=== PATIENT | male | born 1990 | race Caucasian/White ===

== ENCOUNTER 2020-02-02 22:34 | Emergency (ER) | payer MEDICAID, SELFPAY ==
[2020-02-02 22:35] VITALS: BP 117/76; PULSE 115; RESP 20; TEMP 36.3; O2SAT 97; BMI 20.7
--- NOTE | 2020-02-02 22:42 | EKG12_ITS ---
Test Reason : CP Blood Pressure : / mmHG Vent. Rate : 113 BPM Atrial Rate : 113 BPM P-R Int : 148 ms QRS Dur : 090 ms QT Int : 306 ms P-R-T Axes : 076 081 044 degrees QTc Int : 419 ms Sinus tachycardia Nonspecific T wave abnormality Abnormal ECG Confirmed by JOY MARCUS, KATHY ([id number]), sound editor GIRISH LLOYD ([id number]) on 02/08/2020 12:29:55 PM Referred By: LETY Confirmed By:KATHY HAMILTON MD
--- NOTE | 2020-02-02 22:43 | ED.VIS.GEN ---
History of Present Illness Chief Complaint: Anxiety Informant: Patient Onset: Today Current Severity: Mild Maximum Severity: Severe Narrative: Patient presents after a panic attack at work. He states he has a problem with anxiety and has been under increased stress recently. Tonight at work he states his chest got very tight and he was hyperventilating for a while. He is not sure if his anxiety triggered an asthma attack that was all related to anxiety, but states this lungs were tighter than normal. He was not having wheezing. At this time he feels significantly improved. Patient did take an old Xanax he had left over tonight to help darryl his symptoms. He is not currently in any kind of counseling for his anxiety. - Past Medical History (1) Anxiety Status: Chronic (2) Asthma Status: Chronic Past Medical History - Allergies and Home Meds Allergies/Adverse Reactions: Allergies No Known Allergies Allergy (Verified 11/27/16 15:27) Primary Care Physician: Care Physician,No Primary [Primary Care Provider] - Prior records reviewed: Yes Smoking Status: Current some day smoker Review of Systems General: Denies: Chills, Fever Eyes: Denies: Visual changes - bilaterally ENT: Denies: Bilateral ear pain Cardiovascular: Reports: Chest pain - Chest tightness Respiratory: Reports: Dyspnea Gastrointestinal: Denies: Abdominal pain, Nausea, Vomiting, Diarrhea Musculoskeletal: Denies: Swelling, Extremity Pain Skin: Denies: Rash Neurological: Denies: Headache Hematologic: Denies: Easy bruising, Easy bleeding Allergy: Denies: Uticaria Physical Exam Vital Signs/Narrative: Vital Signs Temp Pulse Resp BP Pulse Ox 02/02/20 22:35 97.3 F L 115 H 20 H 117/76 97 Inital Vital Signs reviewed: Yes General: Well nourished, Well developed Head: Normocephalic ENT: Moist mucous membranes Neck: Supple Cardiovascular: Tachycardia Respiratory: No distress, CTA bilaterally Abdomen: Soft, Nontender Back: Nontender Extremities: Nontender Skin: Normal color, No rash Neurological: Alert, Oriented x3, Normal Strength, Normal Sensation Psychological: Normal affect Diagnostic/Tx/Re-eval Chest X-Ray - ED: 2 View, Read by ED Physician, Normal, Heart, Lungs, Mediastinum - EKG Initial EKG Interpretation: Sinus Tachycardia - Sinus tach at 113. No acute ischemia. Normal intervals. - Medical Decision Making Patient reports his panic attack symptoms have abated. He is interested in following up for counseling and will be referred to the counseling center. ED Disposition - Plan for ED Patient: Disposition: Home or Assisted Living Diagnosis: Panic attack Instructions: ED Panic Attack Referrals: Counseling,Center [GROUP OF PHYSICIANS] - As soon as possible
--- NOTE | 2020-02-02 22:55 | RAD_ITS ---
STUDY: X-RAY CHEST REASON FOR EXAM: Male, 29 years old. Anxiety, shortness of breath. TECHNIQUE: PA and lateral chest. COMPARISON: October 08, 2016. FINDINGS: No focal infiltrates. There is now blunting of the costophrenic angles compatible with minimal pleural effusions versus pleural scar. Lungs are hyperinflated. No pneumothorax. Normal size heart. Normal mediastinum and shaan. Normal visualized pulmonary arteries. Normal visualized aortic arch and descending thoracic aorta. Normal visualized thoracic spine. Nondisplaced left lateral 10th posterior rib fracture which is probably subacute or older. There is no demonstrated abnormality of the visualized soft tissue structures of the upper abdomen. RAD/Chest PA and Lateral IMPRESSION: Hyperinflation. Minimal bilateral pleural effusions versus pleural scar. Left 10th posterior rib fracture. Electronically Signed: Pastor Dillard MD at 23:19 EDT , Service support ,
== END 2020-02-02 23:13 | disposition home or self-care (01) ==
LOC: ED 23:09
PROVIDERS: Emergency Provider Emergency Medicine
DX: F41.0 Panic disorder [episodic paroxysmal anxiety] (principal); F17.200 Nicotine dependence, unspecified, uncomplicated
CPT/HCPCS: 71046; 93005; 99282

== ENCOUNTER 2020-07-21 04:52 | Emergency (ER) | payer MEDICAID, SELFPAY ==
[2020-07-21 04:53] VITALS: BP 122/78; PULSE 114; RESP 18; TEMP 36.6; O2SAT 96; BMI 22.1
--- NOTE | 2020-07-21 05:11 | ED.DCSUM_ITS ---
History of Present Illness Chief Complaint: Male Pain/Injury Informant: Patient Onset: Days - 1 week Context: Gradual Onset Current Severity: Mild Maximum Severity: Moderate Narrative: Patient presents with pain and tenderness to the proximal aspect of his penis. He has had 2 prior abscesses in this area. Patient states about 1 week ago he started noticing increased pain and some slight drainage again. No fever or chills. No problems with urinating. - Past Medical History (1) Anxiety Status: Chronic (2) Asthma Status: Chronic Past Medical History - Allergies and Home Meds Allergies/Adverse Reactions: Allergies No Known Allergies Allergy (Verified 07/21/20 05:00) Primary Care Physician: Ceasar Cunningham MD [STAFF PHYSICIAN] - As Needed Prior records reviewed: Yes Lives: With Family Smoking Status: Current every day smoker Review of Systems General: Denies: Chills, Fever Eyes: Denies: Visual changes - bilaterally ENT: Denies: Bilateral ear pain Cardiovascular: Denies: Chest pain Respiratory: Denies: Dyspnea Gastrointestinal: Denies: Abdominal pain, Nausea, Vomiting, Diarrhea Genitourinary: Reports: - - Pain/lesion on proximal penis Musculoskeletal: Denies: Extremity Pain Skin: Reports: Abscess Neurological: Denies: Headache Hematologic: Denies: Easy bruising, Easy bleeding Allergy: Denies: Uticaria Physical Exam Vital Signs/Narrative: Vital Signs Temp Pulse Resp BP Pulse Ox 07/21/20 04:53 97.9 F 114 H 18 122/78 H 96 Inital Vital Signs reviewed: Yes General: Well nourished, Well developed Head: Normocephalic Neck: Supple Cardiovascular: Regular rate, Regular rhythm Respiratory: No distress, CTA bilaterally Abdomen: Soft, Nontender : - - Area of induration and tenderness over the ventral proximal penile shaft. Mild erythema. No spontaneous drainage. No fluctuance. Skin: Normal color Neurological: Alert, Oriented x3 Psychological: Normal affect Diagnostic/Tx/Re-eval - Medical Decision Making At this time I do not palpate any evidence of deep abscess that requires drain age. Patient will be given Bactrim and Keflex along with [place] for pain control. He is referred to Dr. Cunningham as he has seen this group in the past for follow-up. ED Disposition - Plan for ED Patient: Disposition: Home or Assisted Living Diagnosis: Cutaneous abscess Instructions: ED Abscess Antibiotic Treatment Only Prescriptions: Smz/Tmp Ds [Bactrim Ds] 1 tablet PO BID #20 tab Transmission Status: Received by ARTHUR PENALOZA RD Cephalexin [Keflex] 500 mg PO Q6 #40 capsule Transmission Status: Received by ARTHUR PENALOZA RD Hydrocodone Bitart/Apap 5-325 [[place] 5MG-325MG] 1 tablet PO Q6H PRN PRN 3 Days #10 tab PRN Reason: Pain Transmission Status: Received by ARTHUR PENALOZA RD Referrals: Ceasar Cunningham MD [STAFF PHYSICIAN] - As Needed
[2020-07-21] MEDS: HYDROcodone Bitartrate/Apap 5/325 Tablet PO (05:15)
[2020-07-21] MEDS: Cephalexin 250 MG Capsule 500 MG PO (05:15)
[2020-07-21] MEDS: Smz/Tmp Ds Tablet 1 TABLET PO (05:15)
[2020-07-21 05:20] VITALS: BP 124/78; PULSE 114; RESP 18; O2SAT 96
== END 2020-07-21 05:20 | disposition home or self-care (01) ==
PROVIDERS: Emergency Provider Emergency Medicine
DX: N48.21 Abscess of corpus cavernosum and penis (principal); F17.200 Nicotine dependence, unspecified, uncomplicated
CPT/HCPCS: 99283

== ENCOUNTER 2020-07-21 08:53 | Emergency (ER) | payer MEDICAID, SELFPAY ==
[2020-07-21 04:53] VITALS: BMI 22.1
[2020-07-21 08:54] VITALS: BP 127/80; PULSE 95; RESP 16; TEMP 36.4; O2SAT 99; BMI 21.5
--- NOTE | 2020-07-21 09:03 | ED.VISSUMM ---
- ER Visit Summary Date of Service: 07/21/20 Chief Complaint: Pharmacy will not fill my medication History of Present Illness: The patient is a [address] Cunningham for prior penile abscesses. He reports that he has penile pain that began approximately 1 week ago. States that he was seen in the emergency department earlier today and that they prescribed Bactrim, Keflex, and [place]. The pharmacy would not fill the [place]. Physical Examination: Vitals: 97.6, 127/80, 95, 16, 99% on room air which is not hypoxic. Patient is alert with a normal gait. He refused any further physical exam. Emergency Department Course and Treatment: I discussed with the patient the pharmacy would not fill his [place] because he is on Suboxone. I suggested that he use Tylenol and/or ibuprofen for pain. He became upset and walked out. Treatment Plan: Patient has prescriptions for Bactrim and Keflex. He is instructed to follow-up with Dr. Cunningham. Disposition: To home in stable condition. Impression: 1. Penile pain. 2. Opiate seeking behavior. This note was generated with [employer] dictation software. It may contain incorrect words, spelling, and punctuation that were not noted in review of the chart prior to signing ED Disposition - Plan for ED Patient: Referrals: Care Physician,No Primary [Primary Care Provider] -
--- NOTE | 2020-07-21 09:10 | ED.RN ---
PT LEFT ED AFTER BEING EVALUATED BY PHYSICIAN. UNABLE TO COMPLETE ASSESSMENTS BECAUSE PT DEPARTED. PT AMBULATORY OUT OF DEPARTMENT WITHOUT ANY ASSISTANCE NEEDED FROM STAFF.
== END 2020-07-21 08:58 | disposition home or self-care (01) ==
PROVIDERS: Emergency Provider Emergency Medicine
DX: N48.89 Other specified disorders of penis (principal); F17.200 Nicotine dependence, unspecified, uncomplicated; Z76.5 Malingerer [conscious simulation]
CPT/HCPCS: 99281; 99283

== ENCOUNTER 2020-07-22 04:21 | Emergency (ER) | payer MEDICAID, SELFPAY ==
[2020-07-21 08:54] VITALS: BMI 21.5
[2020-07-22 04:23] VITALS: BP 123/85; PULSE 95; RESP 16; TEMP 36.8; O2SAT 98; BMI 20.9
[2020-07-22 04:25] VITALS: BP 123/85; PULSE 95; RESP 16; TEMP 36.8; O2SAT 98
[2020-07-22 04:30] VITALS: BP 123/85; PULSE 95; RESP 16; TEMP 36.8; O2SAT 98
--- NOTE | 2020-07-22 04:53 | ED.DCSUM_ITS ---
History of Present Illness Chief Complaint: Abscess Detail of Chief Complaint: penis pain Informant: Patient Onset: Days - several Context: Gradual Onset Timing: Continuous Quality: sore, red Location: base of penis Current Severity: Severe Maximum Severity: Severe Worsened by: palpation Relieved by: nothing Associated Symptoms: none Past Medical History - Allergies and Home Meds Allergies/Adverse Reactions: Allergies No Known Allergies Allergy (Verified 07/22/20 04:22) Primary Care Physician: Care Physician,No Primary [Primary Care Provider] - Smoking Status: Current every day smoker Review of Systems General: Denies: Chills, Fever, Sweats Skin: Reports: Rash - penis Neurological: Reports: Headache. Denies: Weakness, Numbness Physical Exam Vital Signs/Narrative: Vital Signs Temp Pulse Resp BP Pulse Ox 07/22/20 04:30 98.2 F 95 16 123/85 H 98 07/22/20 04:25 98.2 F 95 16 123/85 H 98 07/22/20 04:23 98.2 F 95 16 123/85 H 98 Inital Vital Signs reviewed: Yes General: Well nourished, Well developed, No Acute Distress Head: Normocephalic, Atraumatic ENT: Moist mucous membranes, No rhinorrhea Respiratory: No distress : - - Area of tender erythema. No fluctuance. No abscess. Small scar in this region without discharge. No extension into the scrotum. Skin: Normal color, No rash, No Trauma Neurological: Alert, Oriented x3, Cranial nerves II-XII grossly intact, Normal Strength, Normal Sensation, Normal Gait Psychological: Normal affect, Normal Mood Diagnostic/Tx/Re-eval - Medical Decision Making Patient told nurses that he needed narcotic pain medication for this problem and Tylenol and ibuprofen were not helping. When I asked him about his visit today, he spent the first 5 minutes or so talking about how the pharmacist should have filled the prescription for [place] that he was initially given because although a prescription that was filled for Suboxone was seen, it was filled by my mom down in [place], and that was 2 or 3 weeks ago and they only give me 1 weeks worth. When I asked him why he was on Suboxone, he said alcohol problems, to which I responded that this medication is typically given for opiate dependence, he acted surprised and states that he did not feel like he needs it anymore so he stopped taking it. When asked why he thought he needed narcotics for this, he then acted defensive so that he did not need narcotics, that he just needed the pain on his penis to go away. I told him I would be happy to give him so mething nonnarcotic to help with his pain, but it may not be reasonable to expect a pill to take the pain away until the infection is gone. I advised him on that matter, that the area does not appear to be an abscess now, and according to the other physician's exam/documentation, it may be improving and that it typically does take several days for antibiotics to start working, so he has not failed them and should continue them as they will likely help his pain as they help the problem. His response to this was this is BS. Ordered him a dose of Toradol prior to discharge, after telling him that I do not think narcotics are needed for his problem. He left prior to discharge and without the medication. Disposition: Left prior to discharge ED Disposition - Plan for ED Patient: Diagnosis: Cellulitis, penis Instructions: ED Abscess Antibiotic Treatment Only Referrals: Ceasar Cunningham MD [STAFF PHYSICIAN] - 3-5 Days if not improving
--- NOTE | 2020-07-22 05:03 | ED.RN ---
PT WAS UPSET HE WAS NOT GETTING STRONG PAIN MEDICINE. UNHAPPY WITH TORADOL ORDER. LEFT PRIOR TO RECEIVING D/C INSTRUCTIONS OR RECEIVING MEDICATION.
== END 2020-07-22 05:02 | disposition home or self-care (01) ==
LOC: ED 05:07
PROVIDERS: Emergency Provider Emergency Medicine
DX: N48.22 Cellulitis of corpus cavernosum and penis (principal); F17.200 Nicotine dependence, unspecified, uncomplicated
CPT/HCPCS: 99282

== ENCOUNTER 2021-07-05 11:56 | Emergency (ER) | payer MEDICAID, SELFPAY ==
[2021-07-05 11:57] VITALS: BP 115/83; PULSE 113; RESP 18; TEMP 36.9; O2SAT 97; BMI 24.7
--- NOTE | 2021-07-05 12:22 | ED.RN ---
pt. calls out states he would like to leave. pt. not seen yet by md. serg osorio and [facility] police at door. to arrest pt.
== END 2021-07-05 12:20 | disposition left against medical advice (07) ==
DX: Z53.21 Procedure and treatment not carried out due to patient leaving prior to being seen by health care provider (principal)
CPT/HCPCS: 99283

== ENCOUNTER 2025-01-08 12:58 | Emergency (ER) | payer MEDICAID, SELFPAY ==
[2025-01-08 12:58] VITALS: BP 106/71; PULSE 94; RESP 15; TEMP 37; O2SAT 100; BMI 22.6
--- NOTE | 2025-01-08 13:33 | ED.RN ---
pt here for Suboxone refill. states that it has been a year since he had it refilled, if you dont fill it for me i'll just get fentanyl on the street. JUST let me talk to a
--- OUTSIDE RECORDS SUMMARY | 2025-01-08 13:47 | XMS RPT_ITS | CCD ---
Author Organization [facility] Team Providers Care Radiological Health Specialist Name Role Phone Sea Acevedo III Primary Care Provider PHIL GONCALVES MD Primary Care Physician Unavailable Primary Care Provider UnavailDENICE Bennett Attending Unavailable Unavailable Primary Care Provider UnavailGABBI Montanez Attending UnavailSEA Ramires III Primary Care Unavail able CLARA KARIMI Attending Unavailable CLARA KARIMI Admitting Unavailable CELESTE PAUL Consulting Unavailable Unavailable Primary Care Provider UnavailSTEPHY Patel Referring Unavailable STEPHY GLOVER Attending Unavailable MIKAL PURVIS Attending Unavailable JUAN KENNY Consulting Unavailab RUBIA Donovan Referring Unavaila AMY Monahan Admitting Unavailable EVA MUSA Referring Unavailable LAYNE DIAZ Attending Unavailable LAYNE DIAZ Admitting Unavailable HILLARY ETIENNE Referring Unavailable MERCY LATIF Attending Unavailable MELISSA DE SOUZA Admitting Unavailable Unavailable Primary Care Provider Unavailabl e Unavailable Primary Care Provider Unavailabl suellen PROVIDER, UNKNOWN Attending Unavailable PROVIDER, UNKNOWN Admitting Unavailable RUBIA HILL Attending Unavailable Allergies Allergy Classification Reported Allergen(s) Allergy Type Date of Onset Reaction(s) Facility (2 sources) diphenhydrAMINE; Translations: [diphenhydramine] Drug Allergy [facility] Medications Current Medications Medication Drug Class(es) Dates Sig (Normalized) Sig (Original) acetaminophen 325 mg oral tablet (5 sources) Start: 08-24-2024 End: 09-23-2024 650 mg, Oral, 2 TIMES DAILY PRN, 14 doses, Starting on Fri08/24/24 at 1758, Until Fri09/23/24 at 2359, Mild Pain (pain score 1,2,3), BUSH Start: 11-05-2012 End: 12-04-2022 take 2 tablets by mouth every four hours as needed acetaminophen (TYLENOL) 325 mg tablet Take 2 tablets by mouth every 4 hours as needed. FOR PAIN. 0 11/05/2012 12/04/2022 Discontinued Comment on above: Take 2 tablets by mo [facility] every 4 hours as needed. FOR PAIN. Completed/Discontinued Medications Medication Drug Class(es) Dates Sig (Normalized) Sig (Original) aspirin 81 mg chewable tablet (2 sources) Platelet Aggregation Inhibitor, Nonsteroidal Anti-inflammatory Drug Start: 08-22-2023 End: 08-22-2023 aspirin chewable tablet 324 mg ibuprofen 200 mg oral capsule (4 sources) Nonsteroidal Anti-inflammatory Drug End: 12-04-2022 Ibuprofen 200 mg cap Take by mouth. 0 12/04/2022 Discontinued Comment on above: Take by mouth. 1 ml LORazepam 2 mg/ml injection (1 source) Benzodiazepine Start: 09-01-2021 End: 09-01-2021 LORazepam (ATIVAN) injection 2 mg meloxicam 15 mg oral tablet (4 sources) Nonsteroidal Anti-inflammatory Drug Start: 05-02-2015 End: 12-04-2022 take 1 tablet by mouth once daily meloxicam (MOBIC) 15 mg tablet Take 1 tablet by mouth once daily. 30 tablet 2 05/02/2015 12/04/2022 Discontinued Comment on above: Take 1 tablet by [facility] once daily. traMADol hydrochloride 50 mg oral tablet (2 sources) Opioid Agonist Start: 08-22-2023 End: 08-22-2023 traMADol (Ultram) tablet 100 mg Problems Active Problems Problem Classification Problem Date Documented Date Episodic/Chronic Administrative/social admission (5 sources) Imprisonment; Translations: [Imprisonment and other incarceration] Onset: 08-24-2024 08-26-2024 Episodic Anxiety disorders (12 sources) Anxiety; Translations: [Anxiety state] Onset: 09-08-2021 08-04-2013 Chronic Attention-deficit, conduct, and disruptive behavior disorders (7 sources) Attention deficit hyperactivity disorder; Translations: [Attention-deficit hyperactivity disorder, unspecified type] Onset: 12-18-2004 04-25-2023 Chronic Attention-deficit, conduct, and disruptive behavior disorders (1 source) Attention-deficit hyperactivity disorder, unspecified type; Translations: [Attention-deficit hyperactivity disorder, unspecified type] Onset: 08-03-2018 Chronic Hepatitis (1 source) Chronic viral hepatitis C; Translations: [Chronic hepatitis C without hepatic coma (HCC)] Onset: 04-25-2023 Chronic Immunizations and screening for infectious disease (3 sources) Tuberculosis screening status; Translations: [Encounter for screening for respiratory tuberculosis] Onset: 08-24-2024 08-24-2024 Episodic Inflammatory conditions of male genital organs (4 sources) Abscess of penis; Translations: [Abscess of corpus cavernosum and penis] Onset: 04-25-2023 04-25-2023 Chronic Mood disorders (8 sources) Bipolar affective disorder, currently depressed, moderate; Translations: [Bipolar disorder, current episode depressed, moderate] Onset: 01-05-2023 04-29-2023 Chronic Nonspecific chest pain (4 sources) Chest pain; Translations: [Chest pain, unspecified] Onset: 08-22-2023 08-22-2023 Episodic Other connective tissue disease (1 source) Trismus; Translations: [Cramp and spasm] Episodic Other screening for suspected conditions (not mental disorders or infectious disease) (2 sources) Patient encounter status; Translations: [Encounter for screening for malignant neoplasm of colon] Onset: 08-24-2024 08-26-2024 Episodic Other upper respiratory infections (2 sources) Acute upper respiratory infection; Translations: [Acute upper respiratory infection, unspecified] Onset: 12-21-2024 12-21-2024 Episodic Substance-related disorders (8 sources) Smoker; Translations: [Nicotine dependence, unspecified, uncomplicated] Onset: 04-25-2023 08-28-2023 Chronic Unclassified (1 source) Detox Onset: 04-11-2023 Unclassified (1 source) Exposure to COVID-19 virus; Translations: [Exposure to COVID-19 virus] Onset: 12-21-2024 Viral infection (2 sources) Viral disease; Translations: [Viral infection, unspecified] Onset: 12-21-2024 12-21-2024 Episodic Past or Other Problems Problem Classification Problem Date Documented Da te Episodic/Chronic Epilepsy; convulsions (4 sources) Seizure; Translations: [Unspecified convulsions] Onset: 08-29-2023 08-30-2023 Episodic Joint disorders and dislocations; trauma-related (8 sources) Anterior dislocation of shoulder joint; Translations: [Anterior dislocation of left humerus, initial encounter] Onset: 11-05-2012 11-05-2012 Episodic Other injuries and conditions due to external causes (19 sources) Swallowed foreign body; Translations: [Foreign body of alimentary tract, part unspecified, initial encounter] Onset: 12-04-2022 12-04-2022 Episodic Other injuries and conditions due to external causes (1 source) Foreign body in stomach, initial encounter; Translations: [Foreign body in stomach, initial encounter] Onset: 12-25-2022 Episodic Other injuries and conditions due to external causes (1 source) Foreign body of alimentary tract, part unspecified, initial encounter; Translations: [Swallowed foreign body, initial encounter] Onset: 12-04-2022 Episodic Other injuries and conditions due to external causes (4 sources) Foreign body in stomach; Translations: [Foreign body in stomach, initial encounter] Onset: 12-25-2022 01-06-2023 Episodic Substance-related disorders (9 sources) Other psychoactive substance use, unspecified, uncomplicated; Translations: [Narcotic drug user] Onset: 04-25-2023 08-22-2023 Episodic Results Test Name Value Interpretation Reference Range Facility [facility] 12-22-2024 [facility] Telephone (WOUCA) KEKE PEMBERTON ([id number]) 1990 M Date Time Provider Department 12/22/24 NO PCP (HIST) WOJASON During your visit today, we recorded the following information about you: Liz Talamantes RN 12/22/2024 8:15 AM Signed Patient calling to ask for test results from 12/21/24. (COPIED) Component Ref Range AND Units 1 d ago (12/21/24) 1 yr ago (04/24/23) 1 yr ago (04/11/23) SARS-CoV-2 (Agent of COVID-19) RNA See comment Detected Abnormal Result given to patient. Patient has no further questions. [facility] care advise was discussed at recent Urgent Care visit and he has had this virus before. States he may call back to ask for fax request at a later time. Liz Talamantes RN Allergies As of Date: 12/22/2024 (No Known Allergies) Date Reviewed: 09/01/2023 Reviewed by: Gabriella Ahuja RN - Fully Assessed Reason for Visit: [...] (HCC) [R56.9] 08/29/2023 Encounter Status:Closed by LIZ TALAMANTES on 12/24/24 [facility] CNOVon 12-21-2024 CNOV Office Visit (WOUCA) KEKE EPMBERTON ([id number]) 1990 M Date Time Provider Department 12/21/24 3:30 PM RUBIA HILL During your visit today, we recorded the following information about you: Temperature Pulse Respiration Blood pressure 98.1 degrees 86/minute 16/minute 110/70 Weight 62.7 kg Rubia Hill APRN.CREW LEADER/CONTROL ROOM OPERATOR 12/21/2024 4:23 PM Signed [facility] Subjective Keke Pemberton is a 34 year [...] tested positive. - Received the [employer] COVID-19 vaccine. - Denies emesis; reports mild [...] Systems Constitutional: (+) chills Head: (+) headache Ears/Nose/Mouth/Thro at: (+) nasal congestion, (+) rhinorrhea, (+) sore [...] obtain excuse from work (Z02.89) - Provided (more content not included)... [facility] TOXICOLOGY SCREEN, UNCONFIRM EDon 08-27-2024 Amphetamines Ql (U) Negative Negative [facility] Barbiturates Screen Ql (U) Negative Negative [facility] Benzodiazepines Ql (U) Negative Negative [facility] Benzoylecgonine Screen Ql (U) Negative Negative [facility] Buprenorphine+Norbupren orphine Screen Ql (U) Negative Cutoff: 5 ng/mL [facility] Ethanol Screen Ql (U) Negative Cutoff : 10 mg/dL [facility] fentaNYL Screen Ql (U) Negative Negat akilah ng/mL [facility] HYDROcodone Screen Ql (U) Negative Negative [facility] Interpretation and review of laboratory results Normal [facility] Methadone Screen Ql (U) Negative Negative [facility] Opiates Ql (U) Negative Negative [facility] oxyCODONE Ql (U) Negative Cutoff: 100 ng/mL [facility] Comment on above: Oxycodone and metabo lites of Oxycodone (Oxymorphone, Noroxycodone, and Noroxymorphone) are measured/detected in this assay method. Phencyclidine Ql (U) Negative Negative [facility] Tetrahydrocannabinol Screen Ql (U) Negative Negative [facility] This toxicology screen provides unconfirmed analytical results suitable for [...] ng/mL Buprenorphine 5 ng/mL Alcohol 10 mg/dL [facility] Progress Noteson 08-26-2024 Sourcing Assistant Authentication Interface Message Text Nurse to pod to read PPD Reading of 0.0mm Results added in patients chart. Normal [facility] Sourcing Assistant Authentication Interface Message Text Pt reports he had blood in his stool last 2 days. No other symptoms. Will pend occult blood. Normal [facility] Sourcing Assistant Authentication Interface Message Text Nurse to pod to read PPD, patient is off the unit at court. Normal [facility] TB INTRADERMAL TESTon 2024 Interpretation and review of laboratory results Normal [facility] PPD reaction [facility] TOXICOLOGY SCREEN, UNCONFIRM EDon 08-26-2024 AMP[facility] Negative Normal Negative [facility] Comment on above: Order Comment: This toxicology screen provides unconfirmed analytical results suitable for [...] ng/mL Buprenorphine 5 ng/mL Alcohol 10 mg/dL Performed By: #### T OX SC #### [facility] [address] [place] [address], BARBIT Negative Normal Negative [facility] Comment on above: Order Comment: This toxicology screen provides unconfirmed analytical results suitable for [...] ng/mL Buprenorphine 5 ng/mL Alcohol 10 mg/dL Performed By: #### T OX SC #### [facility] [address] [place] [address], BENZO Negative Normal Negative [facility] Comment on above: Order Comment: This toxicology screen provides unconfirmed analytical results suitable for [...] ng/mL Buprenorphine 5 ng/mL Alcohol 10 mg/dL Performed By: #### T OX SC #### [facility] [address] [place] [address], BUPRENORPHINE Negative Normal Cutoff: 5 [facility] Comment on above: Order Comment: This toxicology screen provides unconfirmed analytical results suitable for [...] ng/mL Buprenorphine 5 ng/mL Alcohol 10 mg/dL Performed By: #### T OX SC #### [facility] [address] [place] [address], COCAINE CL Negative Normal Negative [facility] Comment on above: Order Comment: This toxicology screen provides unconfirmed analytical results suitable for [...] ng/mL Buprenorphine 5 ng/mL Alcohol 10 mg/dL Performed By: #### T OX SC #### [facility] [address] [place] [address], Ethanol [Mass/Vol] Negative Normal Cutoff: 1 0 mg/dL [facility] Comment on above: Order Comment: This toxicology screen provides unconfirmed analytical results suitable for [...] ng/mL Buprenorphine 5 ng/mL Alcohol 10 mg/dL Performed By: #### T OX SC #### [facility] [address] [place] [address], FENTANYL Negative Normal Negative [facility] Comment on above: Order Comment: This toxicology screen provides unconfirmed analytical results suitable for [...] ng/mL Buprenorphine 5 ng/mL Alcohol 10 mg/dL Performed By: #### T OX SC #### [facility] [address] [place] [address], HYDROCODONE (PM) Negative Normal Negative [facility] Comment on above: Order Comment: This toxicology screen provides unconfirmed analytical results suitable for [...] ng/mL Buprenorphine 5 ng/mL Alcohol 10 mg/dL Performed By: #### T OX SC #### [facility] [address] [place] [address], Methadone Ql (U) Negative Normal Negative [facility] Comment on above: Order Comment: This toxicology screen provides unconfirmed analytical results suitable for [...] ng/mL Buprenorphine 5 ng/mL Alcohol 10 mg/dL Performed By: #### T OX SC #### [facility] [address] [place] [address], OPIATE Negative Normal Negative [facility] Comment on above: Order Comment: This toxicology screen provides unconfirmed analytical results suitable for [...] ng/mL Buprenorphine 5 ng/mL Alcohol 10 mg/dL Performed By: #### T OX SC #### [facility] [address] [place] [address], OXYCODONE Negative Normal Cutoff: 100 [facility] Comment on above: Order Comment: This toxicology screen provides unconfirmed analytical results suitable for [...] ng/mL Buprenorphine 5 ng/mL Alcohol 10 mg/dL Result Comment: Oxyc odone and metabolites of Oxycodone (Oxymorphone, Noroxycodone, and Noroxymorphone) are measured/detected in this assay method. Performed By: #### T OX SC #### [facility] [address] [place] [address], PHENCYCL Negative Normal Negative [facility] Comment on above: Order Comment: This toxicology screen provides unconfirmed analytical results suitable for [...] ng/mL Buprenorphine 5 ng/mL Alcohol 10 mg/dL Performed By: #### T OX VA #### [facility] [address] [place] [address], THC CL Negative Normal Negative [facility] Comment on above: Order Comment: This toxicology screen provides unconfirmed analytical results suitable for [...] ng/mL Buprenorphine 5 ng/mL Alcohol 10 mg/dL Performed By: #### T OX VA #### [facility] [address] [place] [address], Progress Noteson 08-24-2024 Sourcing Assistant Authentication Interface Message Text 08/24/24 1613 Pain C/O Pain? No Numeric [...] 34 year old male, is admitted to [facility]. This is the admission within the last [...] a script of Suboxone [facility] last took one a week ago his [...] 19+ 3-dose series) Never done COVID-19 Vaccine (2023- season) Never done HPV Vaccine (optional start [...] or any previous visit (from the past [id number] hours). BMP (last 3 years, up to [...] franklin education provided: Inmate educated on the [employer] system Admission problem list updated to reflect review and clinical findings Dot Lara RN Normal [facility] Sourcing Assistant Authentication Interface Message Text [facility] Chart Review Lindsay Lundberg RN reviewed patient chart 08/24/2024 2:10 PM. ED/Observation/Admis russ last year? Yes. 08/28/2023 Foreign Body Ingestion Psych History/Suicidal Ideation? Yes. Bipolar, History swallowing razor blades and batteries, Anxiety Disorder ADHD Tox Screen 08/29/2023 Positive Cannabinoids, Opiates, Benzos Were they admitted IP for this? Yes Last 04/25/2023 Have they ever been incarcerated before at [facility]? No STI's/HIV Hx? Yes Hep C positive 04/25/2023 TB up to date? No List of current medications (dose and frequency): None on file Any referrals placed? Yes. Psych: Bipolar, history swallowing razor blades, batteries Normal [facility] ANES POSTPROC EVALon 024 ANES POSTPROC EVAL HNO ID: [id number] Author: GORDO BAZAN MD Service: Anesthesiology Author Type: Anesthesiologist Type: Anesthesia Postprocedure Evaluation Filed: 09/01/2023 14:23 Note Text: POST ANESTHESIA EVALUATION NOTE : 1990 Procedure Summary Date: 09/01/23 Room / Location: [place] OR / [place] OR Anesthesia Start: 1300 Anesthesia Stop: 1400 Procedure: EGD (Abdomen) Diagnosis: Aspiration of foreign body, initial encounter (Aspiration of foreign body, initial encounter [T17.908A]) Surgeons: Enrique Chance MD Responsible Provider: Gordo Bazan MD Anesthesia Type: general ASA Status: 2 - Emergent Anesthesia Type: general Last Vitals Vitals Value Taken Time BP 114/83 09/01/23 1415 Temp 36.4 ?C (97.5 ?F) 09/01/23 1401 Pulse 94 09/01/23 1422 Resp 14 09/01/23 1422 SpO2 99 % 09/01/23 1422 Vitals shown include unfiled device data. Post Anesthesia Patient Status Patient Evaluation: PACU. PACU/ICU Patient Condition: stable. Anticipated Disposition: phase 2 then home. Neurological Status: aware and responsive. Pulmonary Status: breathing comfortably on room air Airway Control: returned to baseline unsupported. Cardiovascular Status: stable. Pain Management: clinically adequate Postoperative Hydration: acceptable. Intraoperative Events: no significant anesthesia events Post Operative Nausea/Vomiting Status: no significant post operative nausea or vomiting Recommendation: further care per PACU/ICU/floor team. Anesthesia Observations No Documentation SIGNATURE: Gordo Bazan MD PATIENT NAME: Keke Pemberton DATE: September 01, 2023 TIME: 2:22 PM CSN: [id number] [facility] ANES PRE-OPon 09-01-2023 ANES PRE-OP HNO ID: [id number] Author: GORDO BAZAN MD Service: Anesthesiology Author Type: Anesthesiologist Type: Anesthesia Preprocedure Evaluation Filed: 09/01/2023 13:00 Note Text: ANESTHESIOLOGY DAY OF SURGERY NOTE : 1990 Procedure Information Date/Time: 09/01/23 1145 Procedure: EGD (Abdomen) Location: [place] OR / [place] OR Surgeons: Enrique Chance MD Estimated body mass index is 20.54 kg/m? as calculated from the following: Height as of this encounter: 180.3 cm (5' 11). Weight as of this encounter: 66.8 kg (147 lb 4.3 oz). Most recent hematocrit and potassium results: Hematocrit 46.7 08/30/2023 Potassium 4.1 08/30/2023 Relevant Problems NEURO-PSYCH (+) Seizure (HCC) PULMONARY (+) Current smoker Gastrointestinal (+) Ingestion of foreign body Psychiatry (+) Mood disorder (HCC) 33 y/o M with AA battery ingestion HDS on RA I - PHYSICAL EVALUATION AIRWAY Patient intubated: No. Tracheostomy tube not present Mallampati: II. TM distance: >3 FB. Neck ROM: full ROM without neurological symptoms. Mouth opening: adequate. Short neck: no. Thick neck: no DENTAL Dental findings: teeth intact. Additional exam findings: no II - ANESTHESIA PLAN ASA Score: 2; emergent. Anesthetic Plan: general Airway type: ETT The patient is not a current smoker. NPO Status: inadequate Anesthetic plan additional comments: RSI. Beta Ashu Monitoring Plan Monitoring plan: standard ASA. Post Procedure Analgesic Plan Postoperative analgesic plan: multimodal analgesia. Informed Consent Anesthetic risks, benefits, alternatives, personnel and consent discussed: yes. Patient / Responsible Constitution Party agrees to proceed: yes Patient / Surrogate agrees to blood products: Yes Significant changes in the patient condition since the History and Physical, not otherwise documented in primary service progress note: no. Potential Anesthesia issues that may suggest increased risk of complications or contraindication to planned procedure:. Inadequate NPO status d/t foreign body ingestion. Discussed aspiration risk and plan for RSI. Pt expressed understanding. Vitals Value Taken Time BP 114/75 09/01/23 1233 Pulse 102 09/01/23 1233 Resp 18 09/01/23 1233 Temp 36.7 ?C (98.1 ?F) 09/01/23 1233 SpO2 100 % 09/01/23 1233 Facility-Administere d Medications as of 09/01/2023 Medication Dose Route Frequency [COMPLETED] aluminum-magnesium hydroxide-simethicon e 200-200-20 mg/5 mL 30 mL 30 mL ORAL ONCE [Held on Transfer] calcium carbonate 500 mg chewable tab(s) (TUMS) 500 mg ORAL BID PRN [Held on Transfer] nicotine 14 mg/24 hr 1 Patch (NICODERM) 1 Patch TRANSDERMAL DAILY And [Held on Transfer] nicotine -- REMOVE patch OTHER AT BEDTIME And [Held on Transfer] nicotine - verify patch OTHER q 8 H [Held on Transfer] LORazepam 0.5 mg injection (ATIVAN) 0.5 mg INTRAVENOUS q 6 H PRN [Held on Transfer] haloperidol lactate 5 mg short-acting injection (HALDOL) 5 mg INTRAVENOUS q 4 H PRN [Held on Transfer] hydrOXYzine HCl 25 mg tab(s) (ATARAX) 25 mg ORAL q 6 H PRN [Held on Transfer] nicotine polacrilex 2 mg gum (NICORETTE) 2 mg ORAL q 2 H PRN [Held on Transfer] ondansetron (PF) 4 mg injection (ZOFRAN) 4 mg INTRAVENOUS q 6 H PRN [COMPLETED] acetaminophen 1,000 mg tab(s) (TYLENOL) 1,000 mg ORAL ONCE [Held on Transfer] QUEtiapine 100 mg tab(s) (SEROquel) 100 mg ORAL AT BEDTIME [COMPLETED] potassium chloride iv piggyback 20 mEq/100 mL 20 mEq INTRAVENOUS ONCE [COMPLETED] acetaminophen 1,000 mg tab(s) (TYLENOL) 1,000 mg ORAL ONCE [COMPLETED] morphine 4 mg injection 4 mg INTRAVENOUS ONCE [Held on Transfer] NaCl 0.9% iv flush bag 20 mL INTRAVENOUS PRN [COMPLETED] etomidate 30 mg injection (AMIDATE) 30 mg INTRAVENOUS ONCE [COMPLETED] succinylcholine 60 mg injection (QUELICIN) 60 mg INTRAVENOUS ONCE [COMPLETED] fentaNYL 50 mcg/mL 100 mcg injection (SUBLIMAZE) 100 mcg INTRAVENOUS ONCE [COMPLETED] midazolam (PF) 5 mg injection (VERSED) 5 mg INTRAVENOUS ONCE [COMPLETED] midazolam (PF) 10 mg injection (VERSED) 10 mg INTRAVENOUS ONCE No current outpatient medications on file as of 09/01/2023. I have interviewed and examined the patient. I have reviewed the medical record and/or the pre-anesthesia evaluation, pertinent labs, and test results. This contains updated information obtained within 48 hours of Surgery/Procedure. SIGNATURE: Gordo Bazan MD PATIENT NAME: Keke Pemberton DATE: September 01, 2023 TIME: 12:49 PM CSN: [id number] [facility]01[facility]2023 [facility] [place] [id number] Author: MALCOLM MICHAEL MD Service: Hospital Medicine Author Type: Physician Type: Discharge Summary Filed: 09/01/2023 08:16 Note Text: DISCHARGE SUMMARY PATIENT NAME: Keke Pemberton ADMISSION DATE: 08/28/2023 DISCHARGE DATE: 09/01/2023 Attending Physician: Malcolm Michael MD Reason for Hospitalization: Foreign Body Ingestion Diagnosis: Principal Problem: Foreign body ingestion, initial encounter (POA: Yes) Active Problems: Current smoker (POA: Yes) Mood disorder (HCC) (POA: Unknown) Opioid dependence with opioid-induced disorder (HCC) (POA: Unknown) Marijuana use (POA: Unknown) Seizure (HCC) (POA: Yes) Resolved Problems: * No resolved hospital problems. * Hospital Course as Described to the Patient: You were admitted for Foreign Body Ingestion. Additional Provider to Provider Information: Presented from retirement after admitting to swallowing two razor blades because he believed he was not receiving the psychiatric care he needed. He was intubated and the razors were removed with EGD. He had two seizures so Neurology started him on Keppra. No MRI ordered per Radiology, so Neuro can do this on follow up. Patient is ok to discharge back to [facility]. Operations During Hospitalization: None Procedures During Hospitalization: No procedures performed Labs and Procedures Pending at Discharge: No pending results. Consulting Teams During Hospitalization: Treatment Team: Attending Provider: Malcolm Michael MD Consulting: Juan Kenny MD Consulting: Ann Wong MD Primary Service: PREET Maloney Patient Condition @ Discharge: Good Discharge Disposition: [facility] PHYSICAL EXAM: Discharge Physical Exam: VITAL SIGNS: BP 100/67 Pulse 94 Temp 36.4 ?C (97.5 ?F) (Axillary) Resp 17 Ht 180.3 cm (5' 11) Wt 66.8 kg (147 lb 4.3 oz) SpO2 99% BMI 20.54 kg/m? GENERAL: Alert, no distress, cooperative Nutrition: Information Provided to Patient: Given at bedside Discharge Medications: Please see After Visit Summary Med Reconciliation for accurate list of discharge medications. If any questions please contact discharging physician. Future Appointments: Follow Up with PCP: No primary care provider on file. Follow Up with Neuro Appointments for Next 45 Days None TIME OF CARE : The physician spent 42 minutes was spent in coordinating this discharge including time spent educating patient, examining patient, ordering medications, and completing necessary paperwork SIGNATURE: Malcolm Michael MD PATIENT NAME: Keke Pemberton DATE: September 01, 2023 TIME: 8:16 AM PAGER/CONTACT #: Pager Sound [facility] CONSULTon 09-01-2023 CONSULT HNO ID: [id number] Author: MARIO SIM APRN.CNP Service: Gastroenterology Author Type: Nurse Practitioner Type: Consults Filed: 09/01/2023 11:31 Note Text: INITIAL CONSULT GASTROENTEROLOGY SERVICE DATE: 09/01/2023 SERVICE TIME: 11:17 AM Consulting Service: Gastroenterology Chief Complaint: Foreign body ingestion Opinion/advice regarding: swallowed 2 batteries Subjective HPI: This is a 33 year old male who presented initially 08/28/23 following ingesting multiple wrapped razor blades. Patient was subsequently sent to ICU, intubated, and underwent urgent EGD with Dr. Portillo. Dr. Portillo was able to remove razor blade wrapped in clothe and plastic wrap from stomach. Following extubation, patient was evaluated by psychiatry who noted patient reporting that he continued to swallow foreign bodies because he didn't feel as though he was getting enough psychiatric care at the retirement. Patient denies SI. Patient was scheduled for discharge back to [facility] today, however prior to departure, patient intentionally swallowed two batteries. He reports this was at ~1045 this morning. Patient endorses significant abdominal pain at this time. Of note, patient has had recurrent ingestion of foreign bodies. Patient also presented 12/04, 12/25, 01/03, and 04/10 for similar issues including ingestion of razor blade, pens, batteries, etc. PAST MEDICAL HISTORY Diagnosis Date ADHD (attention deficit hyperactivity disorder) PAST SURGICAL HISTORY Procedure Laterality Date NONE FAMILY HISTORY Problem Relation Age of Onset Cancer Mother Heart Father Social History Tobacco Use Smoking status: Every Day Packs/day: .5 Types: Cigarettes Smokeless tobacco: Former Vaping Use Vaping Use: Never used Substance Use Topics Alcohol use: Not Currently Comment: occassional Drug use: Yes Types: Marijuana Comment: Hx of IV MEDICATIONS: Prior to Admission Medications: levETIRAcetam (KEPPRA) 750 mg tabletTake 1 tablet by mouth two times a day.Disp: 60 tabletRfl: 0 Current Facility-Administere d Medications Medication Dose Route Frequency NaCl 0.9% iv flush bag 20 mL INTRAVENOUS PRN ondansetron (PF) 4 mg injection (ZOFRAN) 4 mg INTRAVENOUS q 6 H PRN QUEtiapine 100 mg tab(s) (SEROquel) 100 mg ORAL AT BEDTIME nicotine 14 mg/24 hr 1 Patch (NICODERM) 1 Patch TRANSDERMAL DAILY And nicotine -- REMOVE patch OTHER AT BEDTIME And nicotine - verify patch OTHER q 8 H levETIRAcetam 750 mg tab(s) (KEPPRA) 750 mg ORAL BID LORazepam 0.5 mg injection (ATIVAN) 0.5 mg INTRAVENOUS q 6 H PRN haloperidol lactate 5 mg short-acting injection (HALDOL) 5 mg INTRAVENOUS q 4 H PRN hydrOXYzine HCl 25 mg tab(s) (ATARAX) 25 mg ORAL q 6 H PRN nicotine polacrilex 2 mg gum (NICORETTE) 2 mg ORAL q 2 H PRN calcium carbonate 500 mg chewable tab(s) (TUMS) 500 mg ORAL BID PRN ALLERGIES No Known Allergies GI SPECIFIC REVIEW OF SYSTEMS: See above Objective PHYSICAL EXAM: BP 100/67 Pulse 94 Temp 36.4 ?C (97.5 ?F) (Axillary) Resp 17 Ht 180.3 cm (5' 11) Wt 66.8 kg (147 lb 4.3 oz) SpO2 99% BMI 20.54 kg/m? GENERAL- AAO x 3, no distress LUNGS: Clear to auscultation bilaterally CARDIAC: S1, S2 heard, no murmur appreciated ABDOMEN: Positive findings: tenderness: mild location: epigastric DATA: Diagnostic Tests Reviewed for Today's Visit: Most recent labs and imaging results. WBC (k/uL) Date Value 08/30/2023 10.28 RBC (m/uL) Date Value 08/30/2023 5.33 Hemoglobin (g/dL) Date Value 08/30/2023 15.9 Hematocrit (%) Date Value 08/30/2023 46.7 MCV (fL) Date Value 08/30/2023 87.6 MCH (pg) Date Value 08/30/2023 29.8 MCHC (g/dL) Date Value 08/30/2023 34.0 RDW-CV (%) Date Value 08/30/2023 13.3 Platelet Count (k/uL) Date Value 08/30/2023 246 MPV (fL) Date Value 08/30/2023 9.1 Glucose (mg/dL) Date Value 08/30/2023 92 BUN (mg/dL) Date Value 08/30/2023 10 Creatinine (mg/dL) Date Value 08/30/2023 0.76 Sodium (mmol/L) Date Value 08/30/2023 139 Potassium (mmol/L) Date Value 08/30/2023 4.1 Chloride (mmol/L) Date Value 08/30/2023 105 CO2 (mmol/L) Date Value 08/30/2023 24 Protein, Total (g/dL) Date Value 08/29/2023 7.3 Albumin (g/dL) Date Value 08/29/2023 4.5 Calcium, Total (mg/dL) Date Value 08/30/2023 9.2 Alkaline Phosphatase (U/L) Date Value 08/29/2023 93 Bilirubin, Total (mg/dL) Date Value 08/29/2023 0.7 AST (U/L) Date Value 08/29/2023 36 ALT (U/L) Date Value 08/29/2023 36 Cholesterol, Total (mg/dL) Date Value 04/25/2023 131 Triglyceride (mg/dL) Date Value 04/25/2023 27 EGD 5/2 - Normal esophagus. - Razor blade wrapped in clothe and plastic wrap were found in the stomach. Removal was successful. - Normal examined duodenum. Impression/Recommend ations Foreign body ingestion- presented 5/2 following ingestion of razor blades s/p removal via EGD with Dr. Portillo 08/27. P (more content not included)... [facility] NURSING PROGon 09-01-2023 NURSING PROG HNO ID: [id number] Author: LOKI SIMPSON RN Service: Nursing Author Type: Registered Nurse Type: Nursing Progress Note Filed: 09/01/2023 15:24 Note Text: 1037: RN notified that there are two batteries missing from pt tele box after pt was told he will be leaving.Prior to the time of the event, pt had left wrist cuffed to bed with his right arm free in order to eat his meals independently. BLE were both shackled to the bed. It is suspected that pt was able to swallow both batteries while sit was emptying the urinal in the bathroom leaving the pt unattended.. 1039: Provider notified, order stat KUB to verify that pt swallowed two missing batteries and also consulted GI. Tele was discontinued. Both pt wrists were cuffed to the bed. Pt KUB verified that he did indeed swallow the two missing batteries. Pt went to EGD to have the batteries removed. Pt tolerated the procedure well is with c/o scratchy throat and mild abd pain. Provider notified of how the procedure went, provider okay to still d/c. Pt d/c back to retirement. [facility] NURSING PROG HNO ID: [id number] Author: LUKE SILVA, DEMARCO Service: Nursing Author Type: Registered Nurse Type: Nursing Progress Note Filed: 09/01/2023 12:52 Note Text: Dr Bazan notified patient in a lot of pain and requesting pain meds, also niconargis robertson on right back. Patient IV was bad from floor, was infiltrated. Started new IV [facility] Upper GI endoscopyon 024 Upper GI endoscopy [facility] Gastrointestinal Endoscopy Patient Name: Keke Pemberton Procedure Date: 09/01/2023 12:09 PM Date of : 1990 Admit Type: Inpatient Room: OR Area Gender: Male Note Status: Finalized Attending MD: Enrique Chance MD, [id number] Procedure: Upper GI endoscopy Indications: Epigastric abdominal pain, Foreign body in the stomach (SWALLOWED BATTERIES AND OXYGEN PROBE), Abnormal abdominal x-ray of the GI tract Providers: Enrique Chance MD Patient Profile: Refer to note in patient chart for documentation of history and physical. Medicines: See the Anesthesia note for documentation of the administered medications Complications: No immediate complications. Requesting Provider: Malcolm Michael Procedure: Pre-Anesthesia Assessment: - Prior to the procedure, a History and Physical was performed, and patient medications and allergies were reviewed. The patient is competent. The risks and benefits of the procedure and the sedation options and risks were discussed with the patient. All questions were answered and informed consent was obtained. Patient identification and proposed procedure were verified by the physician, the nurse, the anesthesiologist and the utilities ground worker in the pre-procedure area in the procedure room. Mental Status Examination: alert and oriented. Airway Examination: normal oropharyngeal airway and neck mobility. Respiratory Examination: clear to auscultation. CV Examination: normal. Prophylactic Antibiotics: The patient does not require prophylactic antibiotics. Prior Anticoagulants: The patient has taken no anticoagulant or antiplatelet agents. ASA Grade Assessment: II - A patient with mild systemic disease. After reviewing the risks and benefits, the patient was deemed in satisfactory condition to undergo the procedure. The anesthesia plan was to use general anesthesia. Immediately prior to administration of medications, the patient was re-assessed for adequacy to receive sedatives. The heart rate, respiratory rate, oxygen saturations, blood pressure, adequacy of pulmonary ventilation, and response to care were monitored throughout the procedure. The physical status of the patient was re-assessed after the procedure. After obtaining informed consent, the endoscope was passed under direct vision. Throughout the procedure, the patient's blood pressure, pulse, and oxygen saturations were monitored continuously. The Endoscope was introduced through the mouth, and advanced to the second part of duodenum. I was present and participated during the entire procedure, including non-franklin portions, and during the administration and monitoring of Moderate Sedation. The upper GI endoscopy was accomplished without difficulty. The patient tolerated the procedure well. Moderate Sedation: Exam was performed under general anesthesia (GA) Findings: The duodenal bulb and second portion of the duodenum were normal. No biopsies or other specimens were collected for this exam. A medium amount of food (residue) was found in the cardia and in the gastric fundus. Lavage of the area was performed using a moderate amount of tap water, resulting in clearance with fair visualization. TWO DOUBLE AA BATTERIES and an oxygen sensor prove was found in the gastric fundus (SEE ENDOSCOPIC PICTURES). The three items were successfully removed using a singleton net. After successfully removing the batteries they looked like there was still intact and there was no evidence of any acid exiting the batteries. The exam of the stomach was otherwise normal BUT LIMITED EXAMINATION DUE TO RESIDUAL FOOD THAT WAS DIFFICULT TO COMPLETELY CLEAR (SOME SOLID PARTICLES WOULD NOT PASS THROUGH THE EGD SCOPE). The upper third of the esophagus, middle third of the esophagus, lower third of the esophagus and gastroesophageal junction were normal. Despite passing the 2 batteries through the esophagus using a Singleton net there was no damage to the esophagus. Estimated Blood Loss: Estimated blood loss: none. Impression: - Normal duodenal bulb and second portion of the duodenum. No specimens collected. - A medium amount of food (residue) in the stomach. Lavage of the area was performed using a moderate amount of tap water, resulting in clearance with fair visualization. - TWO DOUBLE BATTERIES and an oxygen sensor prove was found in the stomach (SEE DETAILS ABOVE). These three items were successfully removed using a singleton net. After successfully removing the batteries they looked like there was still intact and there was no evidence of any acid exiting the batteries. - Normal upper third of esophagus, middle third of esophagus, lower third of esophagus and gastroesophageal junction. Recommendation: - [facility]. - Full liquid diet today and i (more content not included)... [facility] XR ABDOMEN 1V SUPINEon 08-31 XR ABDOMEN 1V SUPINE * * *Final Report* * * DATE OF EXAM: Sep 01 2023 1:54PM [id number] [id number] - XR ABDOMEN 1V SUPINE / PROCEDURE REASON: EGD W/ FOREIGN BODY REMOVAL * * * * Physician Interpretation * * * * EXAMINATION: XR ABDOMEN 1V SUPINE HISTORY: EGD W/ FOREIGN BODY REMOVAL DONE IN OR 26, EGD WITH FB REMOVAL TECHNIQUE: XR ABDOMEN 1V SUPINE Laterality: NOT APPLICABLE Number of different views (projections): 1 COMPARISON: None RESULT: * Interval removal of radiopaque foreign objects. No obvious radiopaque foreign object noted. * Marked gaseous distention of the stomach, and mildly the small bowel loops which could relate to air insufflation or postoperative ileus. * No obvious pneumoperitoneum from the provided radiographs. No pneumatosis. No portal venous gas. * No suspicious calcification along the urinary tract. * Degenerative spondylosis. IMPRESSION: * Interval removal of radiopaque foreign objects. No obvious radiopaque foreign object noted. * Marked gaseous distention of the stomach, and mildly, the small bowel loops, could relate to air insufflation or postoperative ileus. Recreation Facilities Supervisor: HEAVENLY Transcribe Date/Time: Sep 01 2023 1:58P Dictated by : KIM PHOENIX MD This examination was interpreted and the report reviewed and electronically signed by: KIM PHOENIX MD on Sep 01 2023 2:01PM EST [id number] CN [facility] XR ABDOMEN 1V SUPINE * * *Final Report* * * DATE OF EXAM: Sep 01 2023 11:41AM [id number] - XR ABDOMEN 1V SUPINE / PROCEDURE REASON: Ingested foreign body * * * * Physician Interpretation * * * * EXAMINATION: XR ABDOMEN 1V SUPINE HISTORY: Ingested foreign body INGESTED FOREIGN BODY TECHNIQUE: XR ABDOMEN 1V SUPINE Laterality: NOT APPLICABLE Number of different views (projections): 1 COMPARISON: 09/15/2023 RESULT: * 2 cylindrical radiopaque foreign object projecting over the gastric gas bubble, with an appearance impressive of AA-size batteries. Adjacent 7 mm radiopaque object is also seen. Clinical correlation recommended. * Button-like radiopaque object projecting over the left upper quadrant, likely in the patient's garments. No bowel obstruction. * No pneumoperitoneum from the provided radiographs. No pneumatosis. No portal venous gas. * No suspicious calcification along the urinary tract. IMPRESSION: Two cylindrical radiopaque foreign objects projecting over the gastric gas bubble, with an appearance impressive of AA-size batteries. Adjacent indeterminate 7 mm radiopaque object also seen. Clinical correlation recommended. Button-like radiopaque object projecting over the left upper quadrant, likely in the patient's garments. Clinical correlation recommended. Wet read was made available to the referring service shortly after this dictation. Recreation Facilities Supervisor[facility] Transcribe Date/Time: Sep 01 2023 11:46A Dictated by : KIM PHOENIX MD This examination was interpreted and the report reviewed and electronically signed by: KIM PHOENIX MD on Sep 01 2023 11:53AM EST [id number] CN [facility] CASE MANAGEMon 08-31-2023 CASE MANAGEM HNO ID: [id number] Author: JERMAINE VILLALPANDO LSW Service: ? Author Type: Golf Cart Maker Type: Care Mgt Progress Note Filed: 08/31/2023 11:05 Note Text: CARE MANAGEMENT PROGRESS NOTE SERVICE DATE: 08/31/2023 SERVICE TIME: 11:03 AM LOS: 3 days Per attending, Pt likely ready to return to retirement tmw. at bedside. SW spoke with the Histopath Tech and updated that dc could very well be tmw. She voiced that there was nothing needed to prepare for dc. Once he is ready for dc, they will arrange transport for him and they will take him. Attending updated. SIGNATURE: RICHELLE Tolliver PATIENT NAME: Keke Pemberton DATE: August 31, 2023 TIME: 11:03 AM PAGER/CONTACT #: [phone] [facility] Basic metabolic 2000 panelon 08-30-2023 Anion gap [Moles/Vol] 10 mmol/L Normal 9-18 [facility] Comment on above: Order Comment: Speci men Type: BLOOD SPECIMEN Ordering Facility: [facility] Address: [address] [place] [address] Performed By: #### 2 4321-2 #### [facility] CLIA [id number] 1 [place] [address] [place] Calcium [Mass/Vol] 9.2 mg/dL Normal 8.5-10.2 [facility] Comment on above: Order Comment: Speci men Type: BLOOD SPECIMEN Ordering Facility: [facility] Address: [address] [place] [address] Performed By: #### 2 4321-2 #### [facility] CLIA [id number] [address] [place] Chloride [Moles/Vol] 105 mmol/L Normal 97-105 [facility] Comment on above: Order Comment: Speci men Type: BLOOD SPECIMEN Ordering Facility: [facility] Address: [address] [place] [address] Performed By: #### 2 4321-2 #### [facility] CLIA [id number] 1 [place] [address] [place] CO2 [Moles/Vol] 24 mmol/L Normal 22-30 [facility] Comment on above: Order Comment: Speci men Type: BLOOD SPECIMEN Ordering Facility: [facility] Address: [address] [place] [address] Performed By: #### 2 4321-2 #### [facility] CLIA [id number] 1 [place] [address] [place] Creatinine [Mass/Vol] 0.76 mg/dL Normal 0.73-1.22 [facility] Comment on above: Order Comment: Speci men Type: BLOOD SPECIMEN Ordering Facility: [facility] Address: [address] [address] Performed By: #### 2 4321-2 #### [facility] CLIA [id number] [address] [place] [address] Creatinine and Glomerular filtration rate.predicted panel (S/P/Bld) 122 mL/min/1.73m??? Normal >=60 [facility] Comment on above: Order Comment: Yeyo velasquez Type: BLOOD SPECIMEN Ordering Facility: [facility] Address: [address] [place] [address] Result Comment: Erica mated Glomerular Filtration Rate (eGFR) is calculated using the 2020 CKD-EPI creatinine equation. This equation utilizes serum creatinine, sex, and age as parameters. The creatinine assay has traceable calibration to isotope dilution-mass spectrometry. Refer to KDIGO guidelines for clinical interpretation. In patients with unstable renal function, e.g. those with acute kidney injury, the eGFR may not accurately reflect actual GFR. Performed By: #### 2 4321-2 #### [facility] CLIA [id number] [address] [place] [address] [place] Glucose [Mass/Vol] 92 mg/dL Normal 74-99 [facility] Comment on above: Order Comment: Yeyo velasquez Type: BLOOD SPECIMEN Ordering Facility: [facility] Address: [address] [place] [address] Result Comment: The [place] Diabetes Association (ADA) provides guidance for cutoff values for fasting glucose and random glucose. The ADA defines fasting as no caloric intake for at least 8 hours. Fasting plasma glucose results between 100 to 125 mg/dL indicate increased risk for diabetes (prediabetes). Fasting plasma glucose results greater than or equal to 126 mg/dL meet the criteria for diagnosis of diabetes. In the absence of unequivocal hyperglycemia, results should be confirmed by repeat testing. In a patient with classic symptoms of hyperglycemia or hyperglycemic crisis, random plasma glucose results greater than or equal to 200 mg/dL meet the criteria for diagnosis of diabetes. Reference: Standards of Medical Care in Diabetes 2016, [place] Diabetes Association. Diabetes Care. 2016.39(Suppl 1). Performed By: #### 2 4321-2 #### [facility] CLIA [id number] [address] [place] Potassium [Moles/Vol] 4.1 mmol/L Normal 3.7-5.1 [facility] Comment on above: Order Comment: Speci men Type: BLOOD SPECIMEN Ordering Facility: [facility] Address: [address] [address] Performed By: #### 2 4321-2 #### [facility] CLIA [id number] [address] [place] Sodium [Moles/Vol] 139 mmol/L Normal 136-144 [facility] Comment on above: Order Comment: Speci men Type: BLOOD SPECIMEN Ordering Facility: [facility] Address: [address] [place] [address] Performed By: #### 2 4321-2 #### [facility] CLIA [id number] [address] [place] [facility] Urea nitrogen [Mass/Vol] 10 mg/dL Normal 9-24 [facility] Comment on above: Order Comment: Speci men Type: BLOOD SPECIMEN Ordering Facility: [facility] Address: [address] [place] [address] Performed By: #### 2 4321-2 #### [facility] CLIA [id number] [address] [place] [facility] CBC panel Auto (Bld)on 08-29 Erythrocyte distribution width (RBC) [Ratio] 13.3 % Normal 11.5-15.0 [facility] Comment on above: Order Comment: Speci men Type: BLOOD SPECIMEN Ordering Facility: [facility] Address: [address] [address] Performed By: #### 2 4321-2 #### [facility] CLIA [id number] [address] Hematocrit (Bld) [Volume fraction] 46.7 % Normal 39.0-51.0 [facility] Comment on above: Order Comment: Speci men Type: BLOOD SPECIMEN Ordering Facility: [facility] Address: [address] [address] Performed By: #### 2 4321-2 #### [facility] CLIA [id number] [address] Hemoglobin (Bld) [Mass/Vol] 15.9 g/dL Normal 13.0-17.0 [facility] Comment on above: Order Comment: Speci men Type: BLOOD SPECIMEN Ordering Facility: [facility] Address: [address] [address] Performed By: #### 2 4321-2 #### [facility] CLIA [id number] [address] MCH (RBC) [Entitic mass] 29.8 pg Normal 26.0-34.0 [facility] Comment on above: Order Comment: Speci men Type: BLOOD SPECIMEN Ordering Facility: [facility] Address: [address] [address] Performed By: #### 2 1-2 #### [facility] CLIA [id number] [address] MCHC (RBC) [Mass/Vol] 34.0 g/dL Normal 30.5-36.0 [facility] Comment on above: Order Comment: Speci men Type: BLOOD SPECIMEN Ordering Facility: [facility] Address: [address] [place] [address] Performed By: #### 2 4321-2 #### [facility] CLIA [id number] [address] MCV (RBC) [Entitic vol] 87.6 fL Normal 80.0-100.0 [facility] Comment on above: Order Comment: Speci men Type: BLOOD SPECIMEN Ordering Facility: [facility] Address: [address] [address] Performed By: #### 2 4321-2 #### [facility] CLIA [id number] [address] Nucleated RBC (Bld) [#/Vol] 10*3/uL Normal <0.01 [facility] Comment on above: Order Comment: Speci men Type: BLOOD SPECIMEN Ordering Facility: [facility] Address: [address] [address] Performed By: #### 2 4321-2 #### [facility] CLIA [id number] [address] [place] Platelet mean volume (Bld) [Entitic vol] 9.1 fL Normal 9.0-12.7 [facility] Comment on above: Order Comment: Speci men Type: BLOOD SPECIMEN Ordering Facility: [facility] Address: [address] [address] Performed By: #### 2 4321-2 #### [facility] CLIA [id number] 1 [address] [address] [place] Platelets (Bld) [#/Vol] 246 10*3/uL Normal 150-400 [facility] Comment on above: Order Comment: Speci men Type: BLOOD SPECIMEN Ordering Facility: [facility] Address: [address] [address] Performed By: #### 2 4321-2 #### [facility] CLIA [id number] [address] [place] RBC (Bld) [#/Vol] 5.33 10*6/uL Normal 4.20-6.00 [facility] Comment on above: Order Comment: Speci men Type: BLOOD SPECIMEN Ordering Facility: [facility] Address: [address] [address] Performed By: #### 2 4321-2 #### [facility] CLIA [id number] [address] [place] WBC (Bld) [#/Vol] 10.28 10*3/uL Normal 3.70-11.00 [facility] Comment on above: Order Comment: Speci men Type: BLOOD SPECIMEN Ordering Facility: [facility] Address: [address] [address] Performed By: #### 2 4321-2 #### [facility] CLIA [id number] 1 [place] [address] [place] NURSING PROGon 08-30-2023 NURSING PROG HNO ID: [id number] Author: DIETER TURNER, RN Service: Nursing Author Type: Registered Nurse Type: Nursing Progress Note Filed: 08/30/2023 18:39 Note Text: Other: 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 Pt remains in bilateral and wrist and ankle shackles. Wrists wrapped in coban to reduce irritation. Pt denies pain; however, he does endorse some anxiety. Sound paged upon transfer. Normal [facility] ALLIED HEALTHon 08-29-2023 ALLIED HEALTH HNO ID: [id number] Author: RAEGAN MORILLO RT(R) Service: Radiology Author Type: Technologist Type: Allied Health Filed: 08/29/2023 09:35 Note Text: Radiology Service Progress Note PATIENT NAME: Keke Pemberton DATE OF SERVICE: August 29, 2023 TIME: 9:35 AM PATIENT IDENTITY VERIFICATION COMPLETED USING TWO (2) IDENTIFIERS: Name and Date of confirmed by patient verbally and Name and Date of confirmed by identification band. FALL SCREENING: Has the patient had 2 falls in the last year or 1 fall with injury or currently using an Ambulatory Assistive Device (Walker, Cane, Wheelchair, Crutches, etc.)? Inpatient: Screened on floor PATIENT GENDER DATA: Male PATIENT RELEVANT IMPLANT DATA REVIEWED: Not Applicable PATIENT PRESENTS WITH AN IMPLANTABLE OR ATTACHED SAS CLINICAL PROGRAMMER: No RADIOLOGY DEPARTMENT: CT; Exam(s) Completed: Brain and Spine PERIPHERAL IV DATA: Not applicable SIGNED BY: RT Carolyn(R) August 29, 2023 9:35 AM Normal [facility] Basic metabolic 2000 panelon 08-29-2023 Anion gap [Moles/Vol] 11 mmol/L Normal 9-18 [facility] Comment on above: Order Comment: Speci men Type: BLOOD SPECIMEN Ordering Facility: [facility] Address: [address] [place] [id number] Performed By: #### 2 4321-2 #### [facility] CLIA [id number] 1 [place] [address] [place] Calcium [Mass/Vol] 8.9 mg/dL Normal 8.5-10.2 [facility] Comment on above: Order Comment: Speci men Type: BLOOD SPECIMEN Ordering Facility: [facility] Address: [address] [address] Performed By: #### 2 4321-2 #### [facility] CLIA [id number] [address] [place] Chloride [Moles/Vol] 103 mmol/L Normal 97-105 [facility] Comment on above: Order Comment: Speci men Type: BLOOD SPECIMEN Ordering Facility: [facility] Address: [address] [place] [address] Performed By: #### 2 4321-2 #### [facility] CLIA [id number] [address] OF [facility] CO2 [Moles/Vol] 24 mmol/L Normal 22-30 [facility] Comment on above: Order Comment: Speci men Type: BLOOD SPECIMEN Ordering Facility: [facility] Address: [address] [place] [address] Performed By: #### 2 4321-2 #### [facility] CLIA [id number] [address] OF [facility] Creatinine [Mass/Vol] 0.80 mg/dL Normal 0.73-1.22 [facility] Comment on above: Order Comment: Speci men Type: BLOOD SPECIMEN Ordering Facility: [facility] Address: [address] [address] Performed By: #### 2 4321-2 #### [facility] CLIA [id number] [address] Creatinine and Glomerular filtration rate.predicted panel (S/P/Bld) 120 mL/min/1.73m??? Normal >=60 [facility] Comment on above: Order Comment: Speci men Type: BLOOD SPECIMEN Ordering Facility: [facility] Address: [address] [place] [address] Result Comment: Erica mated Glomerular Filtration Rate (eGFR) is calculated using the 2020 CKD-EPI creatinine equation. This equation utilizes serum creatinine, sex, and age as parameters. The creatinine assay has traceable calibration to isotope dilution-mass spectrometry. Refer to KDIGO guidelines for clinical interpretation. In patients with unstable renal function, e.g. those with acute kidney injury, the eGFR may not accurately reflect actual GFR. Performed By: #### 2 4321-2 #### [facility] CLIA [id number] 1 [place] [address] [place] Glucose [Mass/Vol] 97 mg/dL Normal 74-99 [facility] Comment on above: Order Comment: Speceli velasquez Type: BLOOD SPECIMEN Ordering Facility: [facility] Address: [address] [place] [address] Result Comment: The [place] Diabetes Association (ADA) provides guidance for cutoff values for fasting glucose and random glucose. The ADA defines fasting as no caloric intake for at least 8 hours. Fasting plasma glucose results between 100 to 125 mg/dL indicate increased risk for diabetes (prediabetes). Fasting plasma glucose results greater than or equal to 126 mg/dL meet the criteria for diagnosis of diabetes. In the absence of unequivocal hyperglycemia, results should be confirmed by repeat testing. In a patient with classic symptoms of hyperglycemia or hyperglycemic crisis, random plasma glucose results greater than or equal to 200 mg/dL meet the criteria for diagnosis of diabetes. Reference: Standards of Medical Care in Diabetes 2016, [place] Diabetes Association. Diabetes Care. 2016.39(Suppl 1). Performed By: #### 2 4321-2 #### [facility] CLIA [id number] 1 [place] [address] [place] Potassium [Moles/Vol] 3.7 mmol/L Normal 3.7-5.1 [facility] Comment on above: Order Comment: Yeyo velasquez Type: BLOOD SPECIMEN Ordering Facility: [facility] Address: [address] [phone] Performed By: #### 2 4321-2 #### [facility] CLIA [id number] 1 [place] [address] [place] Sodium [Moles/Vol] 138 mmol/L Normal 136-144 [facility] Comment on above: Order Comment: Speci men Type: BLOOD SPECIMEN Ordering Facility: [facility] Address: [address] [address] Performed By: #### 2 4321-2 #### [facility] CLIA [id number] [address] STATES OF [facility] Urea nitrogen [Mass/Vol] 16 mg/dL Normal 9-24 [facility] Comment on above: Order Comment: Speci men Type: BLOOD SPECIMEN Ordering Facility: [facility] Address: [address] [address] Performed By: #### 2 4321-2 #### [facility] CLIA [id number] [address] STATES OF [facility] CBC panel Auto (Bld)on 08-28 Erythrocyte distribution width (RBC) [Ratio] 12.9 % Normal 11.5-15.0 [facility] Comment on above: Order Comment: Speci men Type: BLOOD SPECIMENOrdering Facility: [facility] Address: [address] [place] [address] Performed By: #### 5 8410-2 ####[facility] [id number] [address] STATES OF [facility] Hematocrit (Bld) [Volume fraction] 47.0 % Normal 39.0-51.0 [facility] Comment on above: Order Comment: Speci men Type: BLOOD SPECIMENOrdering Facility: [facility] Address: [address] [place] [address] Performed By: #### 5 8410-2 ####[facility] [id number] [address] [place] Hemoglobin (Bld) [Mass/Vol] 16.2 g/dL Normal 13.0-17.0 [facility] Comment on above: Order Comment: Speci men Type: BLOOD SPECIMENOrdering Facility: [facility] Address: [address] [place] [address] Performed By: #### 5 8410-2 ####[facility] [id number] [address] MCH (RBC) [Entitic mass] 30.4 pg Normal 26.0-34.0 [facility] Comment on above: Order Comment: Speci men Type: BLOOD SPECIMENOrdering Facility: [facility] Address: [address] [place] [address] Performed By: #### 5 8410-2 ####[facility] [id number] [address] [place] MCHC (RBC) [Mass/Vol] 34.5 g/dL Normal 30.5-36.0 [facility] Comment on above: Order Comment: Speci men Type: BLOOD SPECIMENOrdering Facility: [facility] Address: [address] [place] [address] Performed By: #### 5 8410-2 ####[facility] [id number] [address] MCV (RBC) [Entitic vol] 88.2 fL Normal 80.0-100.0 [facility] Comment on above: Order Comment: Speci men Type: BLOOD SPECIMENOrdering Facility: [facility] Address: [address] [place] [address] Performed By: #### 5 8410-2 ####[facility] [id number] [address] Nucleated RBC (Bld) [#/Vol] 10*3/uL Normal <0.01 [facility] Comment on above: Order Comment: Speci men Type: BLOOD SPECIMENOrdering Facility: [facility] Address: [address] [place] [address] Performed By: #### 5 8410-2 ####[facility] [id number] [address] Platelet mean volume (Bld) [Entitic vol] 9.6 fL Normal 9.0-12.7 [facility] Comment on above: Order Comment: Speci men Type: BLOOD SPECIMENOrdering Facility: [facility] Address: [address] [place] [address] Performed By: #### 5 8410-2 ####[facility] [id number] [address] [id number] [facility] Platelets (Bld) [#/Vol] 317 10*3/uL Normal 150-400 [facility] Comment on above: Order Comment: Speci men Type: BLOOD SPECIMENOrdering Facility: [facility] Address: [address] [place] [address] Performed By: #### 5 8410-2 ####[facility] [id number] [address] [id number] [facility] RBC (Bld) [#/Vol] 5.33 10*6/uL Normal 4.20-6.00 [facility] Comment on above: Order Comment: Speci men Type: BLOOD SPECIMENOrdering Facility: [facility] Address: [address] [place] [address] Performed By: #### 5 8410-2 ####[facility] [id number] [address] WBC (Bld) [#/Vol] 12.86 10*3/uL High 3.70-11.00 [facility] Comment on above: Order Comment: Speci men Type: BLOOD SPECIMENOrdering Facility: [facility] Address: [address] [place] [address] Performed By: #### 5 8410-2 ####[facility] [id number] [address] [id number] [facility] Erythrocyte distribution width (RBC) [Ratio] 13.5 % Normal 11.5-15.0 [facility] Comment on above: Order Comment: Speci men Type: BLOOD SPECIMEN Ordering Facility: [facility] Address: [address] [phone] Performed By: #### 4 024-6, 5643-2, 3298-7 #### [facility] CLIA [id number] [address] [place] [id number] [place] [address] Hematocrit (Bld) [Volume fraction] 44.6 % Normal 39.0-51.0 [facility] Comment on above: Order Comment: Speci men Type: BLOOD SPECIMEN Ordering Facility: [facility] Address: [address] [place] [address] Performed By: #### 4 024-6, 5643-2, 3298-7 #### [facility] CLIA [id number] [address] [place] [address] [facility] [place] Hemoglobin (Bld) [Mass/Vol] 15.3 g/dL Normal 13.0-17.0 [facility] Comment on above: Order Comment: Speci men Type: BLOOD SPECIMEN Ordering Facility: [facility] Address: [address] [place] [address] Performed By: #### 4 024-6, 5643-2, 3297 #### [facility] CLIA [id number] [address] [place] [address] OF [facility] MCH (RBC) [Entitic mass] 30.2 pg Normal 26.0-34.0 [facility] Comment on above: Order Comment: Speci men Type: BLOOD SPECIMEN Ordering Facility: [facility] Address: [address] [place] [address] Performed By: #### 4 024-6, 5643-2, 7 #### [facility] CLIA [id number] [address] [place] [address] [place] MCHC (RBC) [Mass/Vol] 34.3 g/dL Normal 30.5-36.0 [facility] Comment on above: Order Comment: Speci men Type: BLOOD SPECIMEN Ordering Facility: [facility] Address: [address] [place] [address] Performed By: #### 4 024-6, 5643-2, 7 #### [facility] CLIA [id number] [address] [place] [address] [facility] [place] MCV (RBC) [Entitic vol] 88.0 fL Normal 80.0-100.0 [facility] Comment on above: Order Comment: Speci men Type: BLOOD SPECIMEN Ordering Facility: [facility] Address: [address] [place] [address] Performed By: #### 4 024-6, 5643-2, 3297-10 #### [facility] CLIA [id number] [address] [place] [address] [place] Nucleated RBC (Bld) [#/Vol] 10*3/uL Normal <0.01 [facility] Comment on above: Order Comment: Speci men Type: BLOOD SPECIMEN Ordering Facility: [facility] Address: [address] [place] [address] Performed By: #### 4 024-6, 5643-2, 3297-10 #### [facility] CLIA [id number] [address] [place] [address] [place] Platelet mean volume (Bld) [Entitic vol] 9.3 fL Normal 9.0-12.7 [facility] Comment on above: Order Comment: Speci men Type: BLOOD SPECIMEN Ordering Facility: [facility] Address: [address] [place] [address] Performed By: #### 4 024-6, 56432, 3297-10 #### [facility] CLIA [id number] [address] [place] [address] [place] Platelets (Bld) [#/Vol] 272 10*3/uL Normal 150-400 [facility] Comment on above: Order Comment: Speci men Type: BLOOD SPECIMEN Order[facility] Facility: [facility] Address: [address] [place], [place] [address] Performed By: #### 4 024-6, 5643-2, 3297-10 #### [facility] CLIA [id number] [address] [place] [address] [place] RBC (Bld) [#/Vol] 5.07 10*6/uL Normal 4.20-6.00 [facility] Comment on above: Order Comment: Speci men Type: BLOOD SPECIMEN Ordering Facility: [facility] Address: [address] [place], [place] [address] Performed By: #### 4 024-6, 5643-2, 3298-7 #### [facility] CLIA [id number] [address] [place] [address] OF [facility] WBC (Bld) [#/Vol] 13.72 10*3/uL High 3.70-11.00 [facility] Comment on above: Order Comment: Speci men Type: BLOOD SPECIMEN Ordering Facility: [facility] Address: [address] [place] [address] Performed By: #### 4 024-6, 5643-2, 3298-7 #### [facility] CLIA [id number] [address] [place] [address] [place] CK SerPl-cCncon 08-29-2023 CK [Catalytic activity/Vol] 739 U/L High 51-298 [facility] Comment on above: Order Comment: Speci men Type: BLOOD SPECIMEN Ordering Facility: [facility] Address: [address] [place] [address] Performed By: #### 2 4321-2 #### [facility] CLIA [id number] [address] OF [facility] CONSULTon 08-29-2023 CONSULT HNO ID: [id number] Author: AMY ODOM DO Service: Psychiatry Author Type: Resident Type: Consults Filed: 08/29/2023 15:26 Note Text: Attestation signed by Amy Odom DO at 08/29/2023 3:26 PM ATTENDING NOTE: I examined the patient and personally participated in the franklin components of the assessment. I agree with the findings and discussed the care and management of the patient with the resident. I confirm the franklin elements of the history. I confirm the franklin elements of the mental status exam. I confirm the findings I confirm the diagnosis and resident's plan of care. Please see the resident's note for further details. Amy Odom D.O. CL NEW - PSYCHIATRY INITIAL CONSULTATION NOTE SERVICE DATE: 08/29/23 SERVICE TIME: 9:30 AM CONSULTING SERVICE: psychiatry; requested by [facility] REASON FOR CONSULTATION: medication recommendations HISTORY OF PRESENT ILLNESS: Pt is a 33 yo M w/ psychiatric history of mood disorder, cluster B personality traits, ADHD, polysubstance abuse who presents after swallowing a razor blade in retirement. Per chart review- pt has had multiple hospitalizations for swallowing foreign objects in order to get out of retirement, in the ED pt denied SI stating that he did it to get attention so he could receive psychiatric medications. UDS positive for benzodiazepines, cannabis, opiates. Psychiatry was consulted for medication recommendations. Last medication regimen (from [facility] in 03/2023): Wellbutrin XL 150, Tegretol 200 BID. Pt is calm, cooperative during interview. States he swallowed razor blades to get his psychiatric medications but then says retirement won't give me my medications anyway so I won't even waste your time. Informed pt that treatment team can start medication in the hospital and provide recommendations to continue prescriptions in retirement. Pt requesting to restart Wellbutrin 150 twice a day and Seroquel 25. States he has taken Wellbutrin for years- helps him w/ depression, has not had any issues on it, notably says bipolar disorder diagnosis was made when he was a child. Says Seroquel helps him w/ sleep. Did not recognize Tegretol prescription. Per conservation officer in the room prescriptions are given aslong as they are approved by retirement physician. Does Patient Have Any Suicidal Ideations: yes- denies intent/plan STRESSORS: retirement COLLATERAL INFORMATION: will obtain as needed PSYCHIATRIC REVIEW OF SYMPTOMS: Depression: + Depressed mood and + Sleep disturbance with positive suicidal ideation no intent/plan. Angela: Denies any history of hypomanic or manic episodes. Psychosis: Denies any auditory / visual hallucination or paranoid ideation. VARSHA: Denies any symptoms of VARSHA. PTSD: Denies any PTSD symptoms. PSYCHIATRIC HISTORY: (from chart review) Diagnoses: mood disorder, cluster B personality traits, ADHD, polysubstance abuse Current Psychiatrist: none Current Therapist: none Psychiatric Hospitalization(s): last 03/2023 History of Suicide Attempts: frequently swallows foreign objects Previous Psychiatric Medication Trials: Seroquel, lithium, trazodone Current Outpatient Psychiatric Medications: Wellbutrin XL 150, Tegretol 200 BID FAMILY PSYCHIATRIC HISTORY: none SUBSTANCE ABUSE HISTORY: (from chart review) Nicotine: 0.5 PPD Cocaine: monthly use Opioids: previously on Suboxone Other Substance Use: marijuana SOCIAL HISTORY: (from chart review) Childhood: [place], both parents w/ 3 sisters Education/Employment : HS drop-out, unemployed Relationships/Childr en: single, 2 children Current Supports: family/friends Legal History: in retirement for felony charges Religion Affiliation(s): denies Abuse History: denies FAMILY HISTORY Problem Relation Age of Onset Cancer Mother Heart Father PAST MEDICAL HISTORY Diagnosis Date ADHD (attention deficit hyperactivity disorder) PAST SURGICAL HISTORY Procedure Laterality Date NONE Current Facility-Administere d Medications Medication Dose Route Frequency nicotine 14 mg/24 hr 1 Patch (NICODERM) 1 Patch TRANSDERMAL DAILY And [START ON 08/30/2023] nicotine -- REMOVE patch OTHER DAILY And nicotine - verify patch OTHER q 8 H ondansetron (PF) 4 mg injection (ZOFRAN) 4 mg INTRAVENOUS q 6 H PRN NaCl 0.9% iv flush bag 20 mL INTRAVENOUS PRN propofol 20 mg bolus from bag (DIPRIVAN) 20 mg INTRAVENOUS q 30 MIN PRN Or propofol 20 mg injection (DIPRIVAN) 20 mg INTRAVENOUS q 30 MIN PRN propofol infusion (DIPRIVAN) 0-60 mcg/kg/min INTRAVENOUS CONTINUOUS Chlorhexidine Gluconate 0.12 % 15 mL (PERIDEX) 15 mL ORAL q 12 H fentaNYL 25-50 mcg bolus from bag (SUBLIMAZE) 25-50 mcg INTRAVENOUS q 10 MIN PRN Or fentaNYL 50 mcg/mL 25-50 mcg injection (SUBLIMAZE) 25-50 mcg INTRAVENOUS q 30 MIN PRN fentaNYL 20 (more content not included)... Normal [facility] CT BRAIN WO IVCONon 08-29-[address] BRAIN WO IVCON * * *Final Report* * * DATE OF EXAM: Aug 29 2023 4:26PM [facility] 0504 - CT BRAIN WO IVCON / PROCEDURE REASON: Seizure, new-onset, no history of trauma * * * * Physician Interpretation * * * * EXAMINATION: CT BRAIN WO IVCON CLINICAL HISTORY: Seizure, new-onset, no history of trauma TECHNIQUE: Serial axial images without IV contrast were obtained from the vertex to the foramen magnum. MQ: CTBWO_3 CT Radiation dose: Integrated Dose-Length Product (DLP) for this visit = 1187 mGy*cm CT Dose Reduction Employed: Automated exposure control(AEC) and iterative recon COMPARISON: 08/29/2023. RESULT: Localizer images: No additional findings. Post-operative change: None. Acute change: No evidence of an acute infarct or other acute parenchymal process. Hemorrhage: No evidence of acute intracranial hemorrhage. ECASS hemorrhagic transformation score: Not Applicable Mass Lesion / Mass Effect: There is no evidence of an intracranial mass or extraaxial fluid collection. No significant mass effect. Chronic change: None apparent. Parenchyma: There is no significant volume loss. The brain parenchyma is otherwise within normal limits for age. Ventricles: The ventricles are within normal limits of size and configuration for age. Paranasal sinuses and skull base: The visualized paranasal sinuses are grossly clear. The skull base and imaged soft tissues are unremarkable. IMPRESSION: No evidence of acute intracranial process Recreation Facilities Supervisor: [facility] UNION COUNTYFrandy Transcribe Date/Time: Aug 29 2023 5:16P Dictated by : MARIAN PETERSON MD This examination was interpreted and the report reviewed and electronically signed by: MARIAN PETERSON MD on Aug 29 2023 5:19PM EST [id number] CN Normal [facility] CT BRAIN WO IVCON * * *Final Report* * * DATE OF EXAM: Aug 29 2023 9:36AM [facility] 0504 - CT BRAIN WO IVCON / PROCEDURE REASON: Head trauma, moderate-severe * * * * Physician Interpretation * * * * EXAMINATION: CT BRAIN WO IVCON CLINICAL HISTORY: Headache TECHNIQUE: Serial axial images without IV contrast were obtained from the vertex to the foramen magnum. MQ: CTBWO_3 CT Radiation dose: Integrated Dose-Length Product (DLP) for this visit = 1096 mGy*cm CT Dose Reduction Employed: Automated exposure control(AEC) and iterative recon COMPARISON: 08/22/[address] RESULT: Post-operative change: None. Acute change: No evidence of an acute infarct or other acute parenchymal process. Hemorrhage: No evidence of acute intracranial hemorrhage. ECASS hemorrhagic transformation score: Not Applicable Mass Lesion / Mass Effect: There is no evidence of an intracranial mass or extraaxial fluid collection. No significant mass effect. Chronic change: None apparent. Parenchyma: There is no significant volume loss. The brain parenchyma is otherwise within normal limits for age. Ventricles: The ventricles are within normal limits of size and configuration for age. Paranasal sinuses and skull base: The visualized paranasal sinuses are grossly clear. The skull base and imaged soft tissues are unremarkable. IMPRESSION: Unremarkable nonenhanced brain CT. No acute intracranial abnormalities Recreation Facilities Supervisor: DEACONESS [facility] Transcribe Date/Time: Aug 29 2023 9:44A Dictated by : DMITRY PUGA MD This examination was interpreted and the report reviewed and electronically signed by: DMITRY PUGA MD on Aug 29 2023 9:46AM EST [id number] CN Normal [facility] CT CERVICAL SPINE WO IVCONon 08-29-2023 CT CERVICAL SPINE WO IVCON * * *Final Report* * * DATE OF EXAM: Aug 29 2023 4:26PM [facility] 0505 - CT CERVICAL SPINE WO IVCON / PROCEDURE REASON: Spinal cord injury, follow up * * * * Physician Interpretation * * * * EXAMINATION: CT CERVICAL SPINE WO IVCON CLINICAL HISTORY: Spinal cord injury, follow up TECHNIQUE: Spiral, high resolution axial unenhanced images were obtained from the skull base to the cervicothoracic junction with sagittal and coronal planar reconstructions. MQ: CTCSPWO_5 CT Radiation dose: Integrated CT Dose-Length Product (DLP) for this visit = 1187 mGy*cm CT Dose Reduction Employed: Automated exposure control(AEC) and iterative recon COMPARISON: None. RESULT: Counting reference: Craniocervical junction. Anatomic Variants: None. Tufting Machine Operator (topogram) images: No additional findings. Alignment: Alignment is anatomic. Craniocervical junction: Craniocervical junction is normal. Osseous structures/fracture: No evidence of a lytic or blastic process in the visualized spine. No evidence of acute or chronic fracture. Cervical soft tissues: The paraspinal soft tissues are within normal limits. Degenerative changes: No significant degenerative changes. IMPRESSION: No evidence of acute cervical spine fracture Anatomic Variant: None. Assume 7 cervical vertebrae with counting from the craniocervical junction. Recreation Facilities Supervisor: [facility] Transcribe Date/Time: Aug 29 2023 5:19P Dictated by : MARIAN PETESRON MD This examination was interpreted and the report reviewed and electronically signed by: MARIAN PETERSON MD on Aug 29 2023 5:22PM EST [id number] CN Normal [facility] CT CERVICAL SPINE WO IVCON * * *Final Report* * * DATE OF EXAM: Aug 29 2023 9:36AM [facility] 0505 - CT CERVICAL SPINE WO IVCON / PROCEDURE REASON: Spine fracture, cervical, traumatic * * * * Physician Interpretation * * * * EXAMINATION: CT CERVICAL SPINE WO IVCON CLINICAL HISTORY: Pain TECHNIQUE: Spiral, high resolution axial unenhanced images were obtained from the skull base to the cervicothoracic junction with sagittal and coronal planar reconstructions. MQ: CTCSPWO_5 CT Radiation dose: Integrated CT Dose-Length Product (DLP) for this visit = 1096 mGy*cm CT Dose Reduction Employed: Automated exposure control(AEC) and iterative recon COMPARISON: None. RESULT: Counting reference: Craniocervical junction. Anatomic Variants: None. Tufting Machine Operator (topogram) images: Unremarkable. Alignment: Alignment is anatomic. Craniocervical junction: Craniocervical junction is normal. Osseous structures/fracture: No evidence of a lytic or blastic process in the visualized spine. No evidence of acute or chronic fracture. Cervical soft tissues: The paraspinal soft tissues are within normal limits. Degenerative changes: Mild foraminal stenosis at C5-6 level due to uncovertebral hypertrophy IMPRESSION: No CT evidence of acute abnormalities of the cervical spine Mild foraminal stenosis at C5-6 level due to uncovertebral hypertrophy Recreation Facilities Supervisor: [facility] Transcribe Date/Time: Aug 29 2023 9:47A Dictated by : DMITRY PUGA MD This examination was interpreted and the report reviewed and electronically signed by: DMITRY PUGA MD on Aug 29 2023 9:49AM EST [id number] CN Normal [facility] Comprehensive metabolic 2000 panelon 08-29-2023 Albumin [Mass/Vol] 4.5 g/dL Normal 3.9-4.9 [facility] Comment on above: Order Comment: Speci men Type: BLOOD SPECIMEN Ordering Facility: [facility] Address: [address] [place] [address] Performed By: #### 2 4321-2 #### [facility] CLIA [id number] [address] ALP [Catalytic activity/Vol] 93 U/L Normal 38-113 [facility] Comment on above: Order Comment: Speci men Type: BLOOD SPECIMEN Ordering Facility: [facility] Address: [address] [place] [address] Performed By: #### 2 4321-2 #### [facility] CLIA [id number] [address] ALT With P-5'-P [Catalytic activity/Vol] 36 U/L Normal 10-54 [facility] Comment on above: Order Comment: Speci men Type: BLOOD SPECIMEN Ordering Facility: [facility] Address: [address] [place] [address] Performed By: #### 2 4321-2 #### [facility] CLIA [id number] [address] Anion gap [Moles/Vol] 21 mmol/L High 9-18 [facility] Comment on above: Order Comment: Speci men Type: BLOOD SPECIMEN Ordering Facility: [facility] Address: [address] [place] [address] Performed By: #### 2 4321-2 #### [facility] CLIA [id number] [address] OF [facility] AST With P-5'-P [Catalytic activity/Vol] 36 U/L Normal 14-40 [facility] Comment on above: Order Comment: Speci men Type: BLOOD SPECIMEN Ordering Facility: [facility] Address: [address] [place] [address] Performed By: #### 2 4321-2 #### [facility] CLIA [id number] [address] [place] Bilirubin [Mass/Vol] 0.7 mg/dL Normal 0.2-1.3 [facility] Comment on above: Order Comment: Speci men Type: BLOOD SPECIMEN Ordering Facility: [facility] Address: [address] [place] [address] Performed By: #### 2 4321-2 #### [facility] CLIA [id number] [address] [place] Calcium [Mass/Vol] 9.2 mg/dL Normal 8.5-10.2 [facility] Comment on above: Order Comment: Speci men Type: BLOOD SPECIMEN Ordering Facility: [facility] Address: [address] [place] [address] Performed By: #### 2 4321-2 #### [facility] CLIA [id number] [address] [place] Chloride [Moles/Vol] 97 mmol/L Normal 97-105 [facility] Comment on above: Order Comment: Speci men Type: BLOOD SPECIMEN Ordering Facility: [facility] Address: [address] [place] [address] Performed By: #### 2 4321-2 #### [facility] CLIA [id number] 1 [place] [address] [place] CO2 [Moles/Vol] 18 mmol/L Low 22-30 [facility] Comment on above: Order Comment: Speci men Type: BLOOD SPECIMEN Ordering Facility: [facility] Address: [address] [place] [address] Performed By: #### 2 4321-2 #### [facility] CLIA [id number] 1 [place] [address] [place] Creatinine [Mass/Vol] 0.81 mg/dL Normal 0.73-1.22 [facility] Comment on above: Order Comment: Yeyo velasquez Type: BLOOD SPECIMEN Ordering Facility: [facility] Address: [place] [address] Performed By: #### 2 4321-2 #### [facility] CLIA [id number] [address] Creatinine and Glomerular filtration rate.predicted panel (S/P/Bld) 119 mL/min/1.73m??? Normal >=60 [facility] Comment on above: Order Comment: Yeyo velasquez Type: BLOOD SPECIMEN Ordering Facility: [facility] Address: [address] [place] [address] Result Comment: Erica mated Glomerular Filtration Rate (eGFR) is calculated using the 2020 CKD-EPI creatinine equation. This equation utilizes serum creatinine, sex, and age as parameters. The creatinine assay has traceable calibration to isotope dilution-mass spectrometry. Refer to KDIGO guidelines for clinical interpretation. In patients with unstable renal function, e.g. those with acute kidney injury, the eGFR may not accurately reflect actual GFR. Performed By: #### 2 4321-2 #### [facility] CLIA [id number] [address] [place] [address] [place] Glucose [Mass/Vol] 207 mg/dL High 74-99 [facility] Comment on above: Order Comment: Yeyo velasquez Type: BLOOD SPECIMEN Ordering Facility: [facility] Address: [address] [place] [address] Result Comment: The [place] Diabetes Association (ADA) provides guidance for cutoff values for fasting glucose and random glucose. The ADA defines fasting as no caloric intake for at least 8 hours. Fasting plasma glucose results between 100 to 125 mg/dL indicate increased risk for diabetes (prediabetes). Fasting plasma glucose results greater than or equal to 126 mg/dL meet the criteria for diagnosis of diabetes. In the absence of unequivocal hyperglycemia, results should be confirmed by repeat testing. In a patient with classic symptoms of hyperglycemia or hyperglycemic crisis, random plasma glucose results greater than or equal to 200 mg/dL meet the criteria for diagnosis of diabetes. Reference: Standards of Medical Care in Diabetes 2016, [place] Diabetes Association. Diabetes Care. 2016.39(Suppl 1). Performed By: #### 2 4321-2 #### [facility] CLIA [id number] [address] Potassium [Moles/Vol] 3.4 mmol/L Low 3.7-5.1 [facility] Comment on above: Order Comment: Speci men Type: BLOOD SPECIMEN Ordering Facility: [facility] Address: [address] [place] [address] Performed By: #### 2 4321-2 #### [facility] CLIA [id number] [address] Protein [Mass/Vol] 7.3 g/dL Normal 6.3-8.0 [facility] Comment on above: Order Comment: Speci men Type: BLOOD SPECIMEN Ordering Facility: [facility] Address: [address] [place] [address] Performed By: #### 2 4321-2 #### [facility] CLIA [id number] [address] Urea nitrogen [Mass/Vol] 10 mg/dL Normal 9-24 [facility] Comment on above: Order Comment: Speci men Type: BLOOD SPECIMEN Ordering Facility: [facility] Address: [address] [place] [address] Performed By: #### 2 4321-2 #### [facility] CLIA [id number] [address] OF [facility] ECG COMPLETEon 08-29-2023 ECG COMPLETE Ventricular Rate : 53 BPM Atrial Rate : 53 BPM P-R Interval : 148 ms QRS Duration : 86 ms Q-T Interval : 400 ms QTC Calculation(Bazett) : 375 ms Calculated P [place] : 56 degrees Calculated R [place] : 73 degrees Calculated T [place] : 68 degrees SINUS BRADYCARDIA OTHERWISE NORMAL ECG WHEN COMPARED WITH ECG OF 09-Dec-2022 05:31, VENT. RATE HAS DECREASED by 48 bpm QT HAS SHORTENED Confirmed by MD HITESH, [facility] ([id number]) on 08/29/2023 1:42:21 PM NAME : KEKE PEMBERTON PID : [id number] : 1990 Gender : Male Race : ORD : [id number] Procedure Date : Aug 29 2023 00:23:11 Edit Date : Aug 29 2023 13:42:27 Diagnosis: SINUS BRADYCARDIA OTHERWISE NORMAL ECG WHEN COMPARED WITH ECG OF 09-Dec-2022 05:31, VENT. RATE HAS DECREASED by 48 bpm QT HAS SHORTENED Confirmed by MD PROCTOR KAMALESH ([id number]) on 08/29/2023 1:42:21 PM Test Reason : Check QT Location : [address] : [place] [address] Overread By : MD PROCTOR KAMALESH Edited By : MD PROCTOR KAMALESH Referred By : , Acquired by : RAEGAN WEISS Normal [facility] Gas + CO Pnl BldVon 08-29-19 24 Sodium [Moles/Vol] 136 mmol/L Normal 136-144 [facility] Comment on above: Order Comment: Speci men Type: BLOOD SPECIMEN Ordering Facility: [facility] Address: [address] [place] [address] Performed By: #### 2 4321-2 #### [facility] CLIA [id number] [address] [place] Gas and Carbon monoxide pane l (BldV)on 08-29-2023 BASE DEFICIT, VENOUS -5 mmol/L Low -2-0 [facility] Comment on above: Order Comment: Speci men Type: BLOOD SPECIMEN Ordering Facility: [facility] Address: [address] [place] [address] Performed By: #### 2 4321-2 #### [facility] CLIA [id number] [address] [place] Body temperature 98.6 [degF] Normal [facility] Comment on above: Order Comment: Speci men Type: BLOOD SPECIMEN Ordering Facility: [facility] Address: [address] [place] [address] Performed By: #### 2 4321-2 #### [facility] CLIA [id number] [address] Calcium.ionized (BldV) [Mass/Vol] 1.12 mmol/L Normal 1.08-1.30 [facility] Comment on above: Order Comment: Speci men Type: BLOOD SPECIMEN Ordering Facility: [facility] Address: [address] [place] [address] Performed By: #### 2 4321-2 #### [facility] CLIA [id number] [address] OF [facility] Calcium.ionized adjusted to pH 7.4 (BldA) [Moles/Vol] 1.10 mmol/L Normal 1.08-1.30 [facility] Comment on above: Order Comment: Speci men Type: BLOOD SPECIMEN Ordering Facility: [facility] Address: [address] [place] [address] Performed By: #### 2 4321-2 #### [facility] CLIA [id number] [address] Carboxyhemoglobin (BldV) [Mass fraction] 1.6 % Normal 0.0-2.0 [facility] Comment on above: Order Comment: Speci men Type: BLOOD SPECIMEN Ordering Facility: [facility] Address: [address] [place] [address] Result Comment: Carb oxyhemoglobin Reference Range for Smokers: 2.0-8.0% Performed By: #### 2 4321-2 #### [facility] CLIA [id number] [address] [place] Chloride [Moles/Vol] 103 mmol/L Normal 102-109 [facility] Comment on above: Order Comment: Speci men Type: BLOOD SPECIMEN Ordering Facility: [facility] Address: [address] [place] [address] Performed By: #### 2 4321-2 #### [facility] CLIA [id number] [address] OF [facility] CO2 (BldV) [Partial pressure] 35 mm[Hg] Low 42-55 [facility] Comment on above: Order Comment: Speci men Type: BLOOD SPECIMEN Ordering Facility: [facility] Address: [address] [place] [address] Performed By: #### 2 4321-2 #### [facility] CLIA [id number] [address] [place] Glucose [Mass/Vol] 233 mg/dL High 60-105 [facility] Comment on above: Order Comment: Speci men Type: BLOOD SPECIMEN Ordering Facility: [facility] Address: [address] [place] [address] Performed By: #### 2 4321-2 #### [facility] CLIA [id number] [address] [place] HCO3 (Bld) [Moles/Vol] 19 mmol/L Low 24-28 [facility] Comment on above: Order Comment: Speci men Type: BLOOD SPECIMEN Ordering Facility: [facility] Address: [address] [place] [address] Performed By: #### 2 4321-2 #### [facility] CLIA [id number] [address] [place] Hematocrit (Bld) [Volume fraction] 50.1 % Normal 39.0-51.0 [facility] Comment on above: Order Comment: Speci men Type: BLOOD SPECIMEN Ordering Facility: [facility] Address: [address] [place] [address] Performed By: #### 2 4321-2 #### [facility] CLIA [id number] [address] [place] Hemoglobin (Bld) [Mass/Vol] 16.4 g/dL Normal 13.0-17.0 [facility] Comment on above: Order Comment: Speci men Type: BLOOD SPECIMEN Ordering Facility: [facility] Address: [address] [place] [address] Performed By: #### 2 4321-2 #### [facility] CLIA [id number] [address] [place] Lactate [Moles/Vol] 8.3 mmol/L High 0.5-2.2 [facility] Comment on above: Order Comment: Speci men Type: BLOOD SPECIMEN Ordering Facility: [facility] Address: [address] [place] [address] Performed By: #### 2 4321-2 #### [facility] CLIA [id number] [address] [place] Methemoglobin (Bld) [Mass fraction] 0.4 % Normal 0.0-1.5 [facility] Comment on above: Order Comment: Speci men Type: BLOOD SPECIMEN Ordering Facility: [facility] Address: [address] [place] [address] Performed By: #### 2 1-2 #### [facility] CLIA [id number] [address] O2 THERAPY RA=Room Air Normal [facility] Comment on above: Order Comment: Speci men Type: BLOOD SPECIMEN Ordering Facility: [facility] Address: [address] [place] [address] Performed By: #### 2 1-2 #### [facility] CLIA [id number] [address] [place] Oxygen (BldV) [Partial pressure] 52 mm[Hg] High 35-45 [facility] Comment on above: Order Comment: Speci men Type: BLOOD SPECIMEN Ordering Facility: [facility] Address: [address] [place] [address] Performed By: #### 2 4321-2 #### [facility] CLIA [id number] [address] [place] Oxygen saturation in Venous blood 86 % High 60-85 [facility] Comment on above: Order Comment: Speci men Type: BLOOD SPECIMEN Ordering Facility: [facility] Address: [address] [place] [address] Performed By: #### 2 1-2 #### [facility] CLIA [id number] [address] [place] Oxyhemoglobin (BldV) [Mass fraction] 84 % Normal 60-85 [facility] Comment on above: Order Comment: Speceli men Type: BLOOD SPECIMEN Ordering Facility: [facility] Address: [address] [place] [address] Performed By: #### 2 4321-2 #### [facility] CLIA [id number] [address] pH (BldV) 7.36 [pH] Normal 7.32-7.42 [facility] Comment on above: Order Comment: Speci men Type: BLOOD SPECIMEN Ordering Facility: [facility] Address: [address] [place] [address] Performed By: #### 2 4321-2 #### [facility] CLIA [id number] [address] Potassium [Moles/Vol] 3.3 mmol/L Low 3.5-5.0 [facility] Comment on above: Order Comment: Speci men Type: BLOOD SPECIMEN Ordering Facility: [facility] Address: [address] [place] [address] Performed By: #### 2 4321-2 #### [facility] CLIA [id number] [address] OF [facility] HISTORY PHYSICALon HISTORY PHYSICAL HNO ID: [id number] Author: PHYLLIS HOOKS APRN.CREW LEADER/CONTROL ROOM OPERATOR Service: Neurology ICU Author Type: Nurse Practitioner Type: H&P Filed: 08/29/2023 17:21 Note Text: SERVICE DATE: 08/29/2023 SERVICE TIME: 5:20 PM NEUROLOGICAL INTENSIVE CARE UNIT HISTORY AND PHYSICAL REASON FOR ADMISSION: seizure like activity Subjective HPI: 33 yo M w/ psychiatric history of mood disorder, cluster B personality traits, ADHD, polysubstance abuse who presents after swallowing a razor blade in retirement. Per chart review- pt has had multiple hospitalizations for swallowing foreign objects in order to get out of retirement, in the ED pt denied SI stating that he did it to get attention so he could receive psychiatric medications. UDS positive for benzodiazepines, cannabis, opiates. Neurology was consulted for possible seizure. Per chart pt was lying on the floor rocking back and forth kicking his legs. No reported tongue biting. No postictal period. Per chart, pt admitted to using 1g of fentanyl daily. Pt requesting medication for detox during my encounter. It is not likely that the pt is using 1g of Fentanyl daily as this would be equal to 1,000,000mcg of fentanyl. PAST MEDICAL HISTORY Diagnosis Date - ADHD (attention deficit hyperactivity disorder) PAST SURGICAL HISTORY Procedure Laterality Date - NONE FAMILY HISTORY Problem Relation Age of Onset - Cancer Mother - Heart Father ALLERGIES No Known Allergies PRIOR TO ADMISSION MEDICATIONS: No medications prior to admission. Social History Tobacco Use - Smoking status: Every Day Packs/day: .5 Types: Cigarettes - Smokeless tobacco: Former Vaping Use - Vaping Use: Never used Substance Use Topics - Alcohol use: Not Currently Comment: occassional - Drug use: Yes Types: Marijuana Comment: Hx of IV Employer And Job Title: None on file Years Of Education Completed: Not specified Marital Status: REVIEW OF SYSTEMS: Deferred at this time Objective Vital Signs (Last 24hrs min/max): BP 98/72 Pulse (!) 133 Temp 37.4 ?C (99.3 ?F) (Oral) Resp 20 Ht 180.3 cm (5' 11) Wt 61.1 kg (134 lb 11.2 oz) SpO2 98% BMI 18.79 kg/m? PHYSICAL EXAM: NEUROLOGICAL: GCS: Eyes: 3: To Speech Verbal: 5: Oriented Motor: 6: Obeys Motor commands Total: 14 Pt resting in bed. penal officer and RN at bedside pt is in hand cuffs and belly chain. Oriented to person and place states month as July Speech clear No facial asym FROST x4 no focal weakness DATA: Diagnostic tests reviewed for today's visit: Most recent labs and imaging results. Lines, Drains, and Airways Line Duration Peripheral 08/28/23 1845 [facility] Left Forearm 20 Gauge <1 day Peripheral 08/28/23 2100 Right Forearm 20 Gauge <1 day Peripheral 08/29/23 1545 Short Left Antecubital 20 Gauge <1 day PERSONAL INVOLVEMENT IN CARE: Reviewing initiation, responses and adjustments to therapies, coordination of care, and updating family with Staff Physician, Dr. Soto. Assessment AND Plan 33 yo M w/ psychiatric history of mood disorder, cluster B personality traits, ADHD, polysubstance abuse who presents after swallowing a razor blade in retirement. Per chart review- pt has had multiple hospitalizations for swallowing foreign objects in order to get out of retirement, in the ED pt denied SI stating that he did it to get attention so he could receive psychiatric medications. UDS positive for benzodiazepines, cannabis, opiates. Neurology was consulted for possible seizure. Per chart pt was lying on the floor rocking back and forth kicking his legs. No reported tongue biting. No postictal period. Per chart, pt admitted to using 1g of fentanyl daily. Pt requesting medication for detox during my encounter. It is not likely that the pt is using 1g of Fentanyl daily as this would be equal to 1,000,000mcg of fentanyl. Active Hospital Problems as of 08/29/2023 Noted - Resolved [facility] Current smoker 04/25/2023 - Present Yes * (Principal) Foreign body ingestion, initial encounter 08/28/2023 - Present Yes Mood disorder (HCC) 08/28/2023 - Present Unknown Opioid dependence with opioid-induced disorder (HCC) 08/28/2023 - Present Unknown Marijuana use 08/28/2023 - Present Unknown Seizure-like activity (HCC) 08/29/2023 - Present Unknown Current Assessment AND Plan Witnessed seizure like activity ? No tongue biting ? No post-ictal period ? No hx seizure per pt and chart review Plan: ? Concern for non-epileptic seizures ? Check cEEG ? D/c keppra ? D/c ativan ? Seizure precautions. No notes have been filed under this hospital service. Service: Neurology ICU Medication and Non-Pharmacologic VTE Prophylaxis/Anticoag ulants Anticoagulant AND Antiplatelet Medications (From admission, onward) Start Dose Route Frequency Last Action Ordered Stop 08/29/23 1000 enoxaparin 40 mg injection (LOVENOX) (enoxaparin injection (LOVENOX)) 40 mg SUBCUTANEOUS EVERY 24 JOANA (more content not included)... Normal [facility] Magnesium SerPl-mCncon 08-28 Magnesium [Mass/Vol] 2.3 mg/dL Normal 1.7-2.3 [facility] Comment on above: Order Comment: Speci men Type: BLOOD SPECIMEN Ordering Facility: [facility] Address: [facility] [place] [address] Performed By: #### 2 4321-2 #### [facility] CLIA [id number] [address] OF [facility] Magnesium [Mass/Vol] 2.3 mg/dL Normal 1.7-2.3 [facility] Comment on above: Order Comment: Speci men Type: BLOOD SPECIMENOrdering Facility: [facility] Address: [address] [place] [address] Performed By: #### 1 9123-9 ####[facility] [id number] [place] [address] [facility] NURSING PROGon 08-29-2023 NURSING PROG HNO ID: [id number] Author: JORGE BOURGEOIS, RN Service: Nursing Author Type: Registered Nurse Type: Nursing Progress Note Filed: 08/29/2023 16:11 Note Text: Post Fall Assessment PATIENT NAME: Keke Pemberton Patient Location: [place] [address] [address] Room: [place] [address] Witnessed: No How did fall occur: Getting out of bed/chair Location: Patient room Contributing factors: SPONTANEOUS URGENCY Brief factual description: Unwitnessed fall. Histopath Tech states pt was resting comfortably in bed, suddenly woke up, uttered garbled words, quickly exited bed and fell to floor (*Document vital signs, neuro checks, blood sugars in the appropriate flow sheet.) Initial Physical Assessment Injury: No Patient hit head: Yes - Initiate Neuro Checks Immediate actions taken: Assisted back to bed / chair and Diagnostic testing Head CT Name of LIP notified: Dr Reyes Notify family as appropriate: will notify Post fall interventions: Fall Huddle Conducted, Bed Alarm On, Frequent Observation, Apply a Yellow Wrist Band, and new restrainrts applied This note was completed by:Jorge Ashby [facility] NURSING PROG HNO ID: [id number] Author: JORGE BOURGEOIS, RN Service: Nursing Author Type: Registered Nurse Type: Nursing Progress Note Filed: 08/29/2023 16:07 Note Text: Post Fall Assessment PATIENT NAME: Keke Pembreton Patient Location: [place] [address]/[facility] -4801-01 Room: [place] [address] Witnessed: Yes How did fall occur: Pt sitting on bedside commode with fall forward Location: Patient room Contributing factors: none reported Brief factual description: Pt assisted to bedside commode. Pt in leg and arm shackles but able to easily ambulate with assist of one. Nurse directly next to patient. Pt wiped self while seated, stated he needs more time for bowel movement. Nurse remains directly next to patient. Patient falls forward and starts seizure-like activity. Pt assisted to supine position, pillow placed under head and code button activated for help. (*Document vital signs, neuro checks, blood sugars in the appropriate flow sheet.) Initial Physical Assessment Injury: No Patient hit head: Yes - Initiate Neuro Checks Immediate actions taken: c-collar applied, backboard appliued, made aware, assisted back to bed / chair, Diagnostic testing EEG. Name of LIP notified: Dr Reyes, dR Pruett Notify family as appropriate: will notify Post fall interventions: Bed Alarm On, Frequent Observation, and yellow socks, constant complanion This note was completed by:Jorge Bourgeois Normal [facility] TOXICOLOGY SCREEN, ROUTINE U RINEon 08-29-2023 Amphetamines Confirm (U) [Mass/Vol] Negative Normal Negative [facility] Comment on above: Order Comment: Speci men Type: BLOOD SPECIMEN Ordering Facility: [facility] Address: [address] [place] [address] Result Comment: Cuto ff threshold at 1000 ng/mL. Performed By: #### 4 024-6, 5643-2, 3298-7 #### [facility] CLIA [id number] [address] [place] [address] [place] BARBITURATES, URINE Negative Normal Negative [facility] Comment on above: Order Comment: Speci men Type: BLOOD SPECIMEN Ordering Facility: [facility] Address: [address] [place] [address] Result Comment: Cuto ff threshold at 200 ng/mL. Performed By: #### 4 024-6, 5643-2, 3298-7 #### [facility] CLIA [id number] [address] [place] [address] [place] BENZODIAZEPINES, UR Positive Abnormal Negative [facility] Comment on above: Order Comment: Speci men Type: BLOOD SPECIMEN Ordering Facility: [facility] Address: [address] [place] [address] Result Comment: Cuto ff threshold at 200 ng/mL. Performed By: #### 4 024-6, 5643-2, 329-7 #### [facility] CLIA [id number] [address] [place] [address] [facility] [place] Cannabinoids Screen Ql (U) Positive Abnormal Negative [facility] Comment on above: Order Comment: Speci men Type: BLOOD SPECIMEN Ordering Facility: [facility] Address: [address] [place] [address] Result Comment: Cuto ff threshold at 50 ng/mL. Performed By: #### 4 024-6, 5643-2, 7 #### [facility] CLIA [id number] [address] [place] Cocaine Ql (U) Negative Normal Negative [facility] Comment on above: Order Comment: Speci men Type: BLOOD SPECIMEN Ordering Facility: [facility] Address: [address] [place] [address] Result Comment: Cuto ff threshold at 300 ng/mL. Performed By: #### 4 024-6, 5643-2, 7 #### [facility] CLIA [id number] [address] [place] [id number] [place] Ethanol (U) [Mass/Vol] <11 Normal <11 [facility] Comment on above: Order Comment: Speci men Type: BLOOD SPECIMEN Ordering Facility: [facility] Address: [address] [place] [address] Performed By: #### 4 024-6, 5643-2, 3297 #### [facility] CLIA [id number] [address] [place] [address] [facility] [place] Opiates Screen Ql (U) Positive Abnormal Negative [facility] Comment on above: Order Comment: Speci men Type: BLOOD SPECIMEN Ordering Facility: [facility] Address: [address] [place] [address] Result Comment: Cuto ff threshold at 300 ng/mL. Performed By: #### 4 024-6, 5643-2, 3298-7 #### [facility] CLIA [id number] [address] [place] [address] [facility] oxyCODONE cutoff Screen (U) [Mass/Vol] Negative Normal Negative [facility] Comment on above: Order Comment: Speci men Type: BLOOD SPECIMEN Ordering Facility: [facility] Address: [address] [place] [address] Result Comment: Cuto ff threshold at 100 ng/mL. Performed By: #### 4 024-6, 5643-2, 3298-7 #### [facility] CLIA [id number] [address] [place], [place] [id number] [place] [address] Phencyclidine Ql (U) Negative Normal Negative [facility] Comment on above: Order Comment: Speci men Type: BLOOD SPECIMEN Ordering Facility: [facility] Address: [address] [place] [address] Result Comment: Cuto ff threshold at 25 ng/mL. Performed By: #### 4 024-6, 5643-2, 3298-7 #### [facility] CLIA [id number] [address] [place], [place] [address] [place] [address] [place] Urinalysis complete panel (U )on 08-29-2023 Bilirubin Ql (U) Negative Normal Negative [facility] Comment on above: Order Comment: Speci men Type: URINE SPECIMENOrdering Facility: [facility] Address: [address] [place] [address] Performed By: #### 2 4356-8 ####[facility] [id number] [place], [place] [address] [place] [address] [place] Clarity (Unsp spec) Clear Normal Clear [facility] Comment on above: Order Comment: Speci men Type: URINE SPECIMENOrdering Facility: [facility] Address: [address] [place] [address] Performed By: #### 2 4356-8 ####[facility] [id number] [address] STATES OF [facility] Color (U) Colorless Normal yellow [facility] Comment on above: Order Comment: Speci men Type: URINE SPECIMENOrdering Facility: [facility] Address: [address] [place] [address] Performed By: #### 2 4356-8 ####[facility] [id number] [address] Glucose Test strip (U) [Mass/Vol] Negative Normal Trace, Negative [facility] Comment on above: Order Comment: Speci men Type: URINE SPECIMENOrdering Facility: [facility] Address: [address] [place] [address] Performed By: #### 2 4356-8 ####[facility] [id number] [address] Hemoglobin Ql (U) Negative Normal Negative, Trace [facility] Comment on above: Order Comment: Speci men Type: URINE SPECIMENOrdering Facility: [facility] Address: [address] [place] [address] Performed By: #### 2 4356-8 ####[facility] [id number] [address] Ketones Ql (U) Negative Normal Negative, Trace [facility] Comment on above: Order Comment: Speci men Type: URINE SPECIMENOrdering Facility: [facility] Address: [address] [place] [address] Performed By: #### 2 4356-8 ####[facility] [id number] [address] Leukocyte esterase Test strip Ql (U) Negative Normal Negative, 25 Shawn/uL [facility] Comment on above: Order Comment: Speci men Type: URINE SPECIMENOrdering Facility: [facility] Address: [address] [place] [address] Performed By: #### 2 4356-8 ####[facility] [id number] [place] [address] [place] Nitrite Ql (U) Negative Normal Negative [facility] Comment on above: Order Comment: Speci men Type: URINE SPECIMENOrdering Facility: [facility] Address: [address] [place] [address] Performed By: #### 2 4356-8 ####[facility] [id number] [address] [place] pH (U) 7.0 [pH] Normal 5.0-8.0 [facility] Comment on above: Order Comment: Speci men Type: URINE SPECIMENOrdering Facility: [facility] Address: [address] [place] [address] Performed By: #### 2 4356-8 ####[facility] [id number] [address] STATES [facility] Protein (U) [Mass/Vol] Negative Normal Trace , Negative [facility] Comment on above: Order Comment: Speci men Type: URINE SPECIMENOrdering Facility: [facility] Address: [address] [place] [address] Performed By: #### 2 4356-8 ####[facility] [id number] [address] [place] RBC LM.HPF (Urine sed) [#/Area] 0-3 /HPF Normal 0-3 /HPF [facility] Comment on above: Order Comment: Speci men Type: URINE SPECIMENOrdering Facility: [facility] Address: [address] [place] [address] Performed By: #### 2 4356-8 ####[facility] [id number] [address] Specific gravity (U) [Rel density] 1.006 Normal 1.005-1.030 [facility] Comment on above: Order Comment: Speci men Type: URINE SPECIMENOrdering Facility: [facility] Address: [address] [place] [id number] Performed By: #### 2 4356-8 ####[facility] [id number] [place] [id number] [facility] Urobilinogen Ql (U) Normal Normal Normal [facility] Comment on above: Order Comment: Speci men Type: URINE SPECIMENOrdering Facility: [facility] Address: [address] [place] [address] Performed By: #### 2 4356-8 ####[facility] [id number] [place] [id number] [facility] WBC LM.HPF (Urine sed) [#/Area] 0-5 /HPF Normal 0-5 /HPF [facility] Comment on above: Order Comment: Speci men Type: URINE SPECIMENOrdering Facility: [facility] Address: [address] [place] [address] Performed By: #### 2 4356-8 ####[facility] [id number] [place] [id number] [facility] [place] XR ABDOMEN 1V SUPINEon 08-28 XR ABDOMEN 1V SUPINE * * *Final Report* * * DATE OF EXAM: Aug 28 2023 10:35PM AKX [id number] - XR ABDOMEN 1V SUPINE / PROCEDURE REASON: Other * * * * Physician Interpretation * * * * XR ABDOMEN 1V SUPINE CLINICAL HISTORY: PATIENT/TECHNOLOGIST PROVIDED HISTORY: evaluate for foreign body removal after surgery CLINICAL INFORMATION ( PROVIDED BY ORDERING CLINICIAN) : Other COMPARISON: 08/28/2023 at 4:38 PM and 4:05 PM TECHNIQUE: AP view abdomen, 2 films. RESULT: See impression. IMPRESSION: Interval removal of the prior radiopaque foreign body overlying the stomach with no radiopaque foreign body identified. Gaseous distention of the stomach and gas present within nondilated large and small bowel loops. Recreation Facilities Supervisor: HEAVENLY Transcribe Date/Time: Aug 28 2023 11:03P Dictated by : HORACIO MORENO MD This examination was interpreted and the report reviewed and electronically signed by: HORACIO MORENO MD on Aug 28 2023 11:07PM EST [id number] CN Normal [facility] XR CERVICAL SPECIFY 1Von XR CERVICAL SPECIFY 1V * * *Final Report * * * DATE OF EXAM: Aug 28 2023 10:35PM AKX [id number] - XR CERVICAL SPECIFY 1V / PROCEDURE REASON: Foreign body * * * * Physician Interpretation * * * * EXAMINATION: XR CERVICAL SPECIFY 1V HISTORY: evaluate for foreign body removal after surgery Foreign body. TECHNIQUE: XR CERVICAL SPECIFY 1V Laterality: NOT APPLICABLE Number of different views (projections): 1 M: XB_1 COMPARISON: None. RESULT: Single AP view was obtained. Monitoring leads and tubing projects over the neck. Endotracheal tube tip just above the franco. No unexpected radiopaque foreign body resembling a razor blade identified. IMPRESSION: No unexpected radiopaque foreign body resembling a razor blade identified. COMMUNICATION: Communicated with Dr. Gardner on 2315 hours EST 08/28/2023 via verbal communication. Recreation Facilities Supervisor: HEAVENLY Transcribe Date/Time: Aug 28 2023 11:07P Dictated by : MALORIE DAIGLE MD This examination was interpreted and the report reviewed and electronically signed by: MALORIE DAIGLE MD on Aug 28 2023 11:25PM EST [id number] CN Normal [facility] XR CHEST 1V FRONTALon 2023 XR CHEST 1V FRONTAL * * *Final Report* * * DATE OF EXAM: Aug 28 2023 10:35PM AKX 5290 - XR CHEST 1V FRONTAL / PROCEDURE REASON: Post-operative/post- procedure assessment * * * * Physician Interpretation * * * * EXAMINATION: CHEST RADIOGRAPH (SINGLE VIEW AP OR PA) CLINICAL HISTORY: Post-operative/post- procedure assessment, Other, foreign body MQ: XC1_5 Comparison: 08/28/2023 at 4 3:00 PM RESULT: See impression. IMPRESSION: Lines, tubes, and devices: Interval placement of endotracheal tube with the tip approximately 2 cm above the level of the franco. Lungs and pleura: No consolidation. No pneumothorax. No visualized pleural effusion. Cardiomediastinal silhouette: Within normal limits and stable. Other: No radiopaque foreign body identified. Recreation Facilities Supervisor: HEAVENLY Transcribe Date/Time: Aug 28 2023 10:59P Dictated by : HORACIO MORENO MD This examination was interpreted and the report reviewed and electronically signed by: HORACIO MORENO MD on Aug 28 2023 11:02PM EST [id number] CN Normal [facility] [id number] 08-28-2023 [id number] HNO ID: [id number] Author: INO UNDERWOOD MD Service: Critical Care Author Type: Registered Nurse Type: [id number] Filed: 08/28/2023 21:57 Note Text: Attestation signed by Ino Underwood MD at 08/28/2023 9:57 PM [facility] PHYSICIAN NOTE OF PERSONAL INVOLVEMENT IN CARE I have reviewed the titration note documented by the nurse and I personally participated in the franklin components. Ino Underwood MD 9:57 PM August 28, 2023 Medication Titration/ Urgent Event Patient Name: Keke Pemberton Patient Location: [place] [address] [id number] Room: [place] [address] Event start time: 2039 Patient experiencing urgent clinical event requiring continuous RN presence at bedside. Medications(s) are titrated/administere d per Physician/LIP orders Additional interventions included intubation for procedure (EDG). Dr. Underwood at bedside. Will continue to monitor closely. Did you receive Physician/LIP directions outside of MAR Orders? (I.e. new medication infusions, medication titrations, one time orders) Yes, complete section below, then select LIP above During the event, the following medication(s) were given per physician/LIP order: Propofol started at 20 mcg/kg/min, titrated to a maximum dose of 60 mcg/kg/min and was infusing at 60 mcg/kg/min at the end of the event for RASS One -Time Medication(s) Administration: Fentanyl 100 mcg route IV number of doses administered 2 per Physician/LIP direction Versed 5mg route IV number of doses administered 1 per Physican/LIP direction I attest that I authorized the medication orders as outlined in this note by the nurse Event End time: 2052 Date: August 28, 2023 Time: 8:52 PM This note was completed by:Perfecto Ashby [facility] CBC panel Auto (Bld)on 08-27 Erythrocyte distribution width (RBC) [Ratio] 12.9 % Normal 11.5-15.0 [facility] Comment on above: Order Comment: Speci men Type: BLOOD SPECIMEN Order[facility] Facility: [facility] Address: [address] [place] [address] Performed By: #### 5 8410-2 #### [facility] CLIA [id number] [address] [place] [address] OF [facility] Hematocrit (Bld) [Volume fraction] 46.5 % Normal 39.0-51.0 [facility] Comment on above: Order Comment: Speci men Type: BLOOD SPECIMEN Ordering Facility: [facility] Address: [address] [place] [address] Performed By: #### 5 8410-2 #### [facility] CLIA [id number] [address] [place] Hemoglobin (Bld) [Mass/Vol] 15.6 g/dL Normal 13.0-17.0 [facility] Comment on above: Order Comment: Speci men Type: BLOOD SPECIMEN Ordering Facility: [facility] Address: [address] [place] [address] Performed By: #### 5 8410-2 #### [employer] [facility] CLIA [id number] [address] [place] MCH (RBC) [Entitic mass] 29.7 pg Normal 26.0-34.0 [facility] Comment on above: Order Comment: Speci men Type: BLOOD SPECIMEN Ordering Facility: [facility] Address: [address] [place] [address] Performed By: #### 5 8410-2 #### [facility] CLIA [id number] [address] MCHC (RBC) [Mass/Vol] 33.5 g/dL Normal 30.5-36.0 [facility] Comment on above: Order Comment: Speci men Type: BLOOD SPECIMEN Ordering Facility: [facility] Address: [address] [place] [address] Performed By: #### 5 8410-2 #### [facility] CLIA [id number] [address] MCV (RBC) [Entitic vol] 88.6 fL Normal 80.0-100.0 [facility] Comment on above: Order Comment: Speci men Type: BLOOD SPECIMEN Ordering Facility: [facility] Address: [address] [place] [address] Performed By: #### 5 8410-2 #### [facility] CLIA [id number] [address] Nucleated RBC (Bld) [#/Vol] 10*3/uL Normal <0.01 [facility] Comment on above: Order Comment: Speci men Type: BLOOD SPECIMEN Ordering Facility: [facility] Address: [address] [place] [address] Performed By: #### 5 8410-2 #### [facility] CLIA [id number] [address] Platelet mean volume (Bld) [Entitic vol] 9.6 fL Normal 9.0-12.7 [facility] Comment on above: Order Comment: Speci men Type: BLOOD SPECIMEN Ordering Facility: [facility] Address: [address] [place] [address] Performed By: #### 5 8410-2 #### [facility] CLIA [id number] [address] Platelets (Bld) [#/Vol] 274 10*3/uL Normal 150-400 [facility] Comment on above: Order Comment: Speci men Type: BLOOD SPECIMEN Ordering Facility: [facility] Address: [address] [place] [address] Performed By: #### 5 8410-2 #### [facility] CLIA [id number] [address] OF [facility] RBC (Bld) [#/Vol] 5.25 10*6/uL Normal 4.20-6.00 [facility] Comment on above: Order Comment: Speci men Type: BLOOD SPECIMEN Ordering Facility: [facility] Address: [address] [place] [address] Performed By: #### 5 8410-2 #### [facility] CLIA [id number] [address] WBC (Bld) [#/Vol] 10.96 10*3/uL Normal 3.70-11.00 [facility] Comment on above: Order Comment: Arianei eva Type: BLOOD SPECIMEN Ordering Facility: [facility] Address: [address] [place] [address] Performed By: #### 5 8410-2 #### [facility] CLIA [id number] [address] CONSULTon 08-28-2023 CONSULT HNO ID: [id number] Author: MC PORTILLO MD Service: Gastroenterology Author Type: Physician Type: Consults Filed: 08/28/2023 21:28 Note Text: Department of Gastroenterology AND Hepatology Initial Consult Note Date of Service: August 28, 2023 Patient: Keke Pemberton Medical Record: [id number] Reason for Admission / Consultation: Opinion/Advice regarding FB removal Gastroenterology Attending: Mc Portillo MD Referring Provider: Keke Jones Pemberton [id number] Mc Portillo MD My final recommendations will be communicated back to the requesting physician by way of shared medical record or letter via US mail Impression: Keke Pemberton is a 33 year old has a past medical history of ADHD (attention deficit hyperactivity disorder)., bipolar, anxiety, prior h/o swallowed Fb presented from [facility] after swallowing razor blade. #Foreign body ingestion Per pt swallowed razor blade KUB FB in fundus Most recent labs and imaging results. Plan: Emergent EGD after intubation Pt gave consent Mc Portillo MD Gastroenterology, Hepatology and Nutrition Advanced Endoscopy History of Present Illness: Keke Pemberton is a 33 year old has a past medical history of ADHD (attention deficit hyperactivity disorder)., bipolar, anxiety, prior h/o swallowed Fb presented from [facility] after swallowing razor blade. Per pt he wrapped it in towel and a plastic bag and swallowed it. Denies suicidal ideation. Denies any nausea, vomiting, abdominal pain, cough, blood in cough or stool. KUB FB in gastric fundus. Pertinent Review of Systems: Per HPI rest 12 point ROS negative Past Medical History: PAST MEDICAL HISTORY Diagnosis Date ADHD (attention deficit hyperactivity disorder) Past Surgical History: PAST SURGICAL HISTORY Procedure Laterality Date NONE Family History: FAMILY HISTORY Problem Relation Age of Onset Cancer Mother Heart Father Social History: Social History Tobacco Use Smoking status: Every Day Packs/day: .5 Types: Cigarettes Smokeless tobacco: Former Vaping Use Vaping Use: Never used Substance Use Topics Alcohol use: Not Currently Comment: occassional Drug use: Yes Types: Marijuana Comment: Hx of IV Allergies: ALLERGIES No Known Allergies Medications: Prior to Admission Medications: pantoprazole DR (PROTONIX) 40 mg tabletTake 1 tablet by mouth daily at 6 am.Disp: 30 tabletRfl: 0 buprenorphine-naloxo ne (SUBOXONE) 8-2 mg filmDissolve 2 Film under the tongue once daily for 30 days.Disp: 60 FilmRfl: 0 buPROPion XL (WELLBUTRIN XL) 150 mg 24 hr tabletTake 1 tablet by mouth once daily.Disp: 30 tabletRfl: 0 carBAMazepine (TEGRETOL) 200 mg tabletTake 1 tablet by mouth two times a day.Disp: 60 tabletRfl: 0 naloxone 4 mg/actuation nasal spray (NARCAN)Use 1 spray in one nostril as needed for overdose. May repeat every 2 to 3 min in alternating nostrils until medical assistance is availableDisp: 2 EachRfl: 0 Current Facility-Administere d Medications Medication Dose Route Frequency NaCl 0.9% iv flush bag 20 mL INTRAVENOUS PRN propofol 20 mg bolus from bag (DIPRIVAN) 20 mg INTRAVENOUS q 30 MIN PRN Or propofol 20 mg injection (DIPRIVAN) 20 mg INTRAVENOUS q 30 MIN PRN propofol infusion (DIPRIVAN) 0-60 mcg/kg/min INTRAVENOUS CONTINUOUS Chlorhexidine Gluconate 0.12 % 15 mL (PERIDEX) 15 mL ORAL q 12 H fentaNYL 25-50 mcg bolus from bag (SUBLIMAZE) 25-50 mcg INTRAVENOUS q 10 MIN PRN Or fentaNYL 50 mcg/mL 25-50 mcg injection (SUBLIMAZE) 25-50 mcg INTRAVENOUS q 30 MIN PRN fentaNYL 20 mcg/mL iv infusion in NaCl 0.9% 100 mL (SUBLIMAZE) 0-250 mcg/hr INTRAVENOUS CONTINUOUS Physical Exam: Vital Signs 08/28/23 1853 08/28/23 1900 08/28/23199908/28/232000 BP: 108/76 105/70 112/82 Pulse: 66 69 81 Resp: 23 24 18 Temp: 37 ?C (98.6 ?F) TempSrc: Oral SpO2: 98% Weight: 61.1 kg (134 lb 11.2 oz) Height: 180.3 cm (5' 11) No intake or output data in the 24 hours ending 08/28/232119 VITAL SIGNS: BP 112/82 Pulse 81 Temp (Src) 98.6 (Oral) Resp 18 Ht 5' 11 (1.80m) Wt 134 lb 11.2 oz (61.1kg) SpO2 98% BMI 18.80 kg/(m2). O2 Therapy: Room Air General appearance: well appearing, alert, in no acute distress Skin: no rashes or lesions Head: normal Eyes: Anicteric sclera. ENT: No oral erythema Neck: Supple Lymph nodes: No Submandibular lymphadenopathy present Lungs: lungs clear to auscultation, no wheezing or rhonchi Heart: RRR without murmur Abdomen: Abdomen soft, non-tender. Bowel sounds normal. Extremities: Extremities normal. Musculoskeletal: Muscular strength grossly intact Neuro: CN2-12 grossly intact Labs: CBC, Coags, BMP, Mg, Phos Recent Labs 08/28/23 1845 WBC 10.96 HB 15.6 HCT 46.5 PLT 274 NA 140 K 3.7 CHLOR 106* CO2 22 BUN 13 CREAT 0.70* GLUC 105* CA 9.1 SIGNATURE: Mc Portillo (more content not included)... Normal [facility] Comprehensive metabolic 2000 panelon 08-28-2023 Albumin [Mass/Vol] 4.4 g/dL Normal 3.9-4.9 [facility] Comment on above: Order Comment: Speci men Type: BLOOD SPECIMEN Ordering Facility: [facility] Address: [address] [place] [address] Performed By: #### 2 4321-2 #### [facility] CLIA [id number] [address] ALP [Catalytic activity/Vol] 90 U/L Normal 38-113 [facility] Comment on above: Order Comment: Speci men Type: BLOOD SPECIMEN Ordering Facility: [facility] Address: [address] [address] Performed By: #### 2 4321-2 #### [facility] CLIA [id number] [address] ALT With P-5'-P [Catalytic activity/Vol] 36 U/L Normal 10-54 [facility] Comment on above: Order Comment: Speci men Type: BLOOD SPECIMEN Ordering Facility: [facility] Address: [address] [address] Performed By: #### 2 4321-2 #### [facility] CLIA [id number] [address] Anion gap [Moles/Vol] 12 mmol/L Normal 9-18 [facility] Comment on above: Order Comment: Speci men Type: BLOOD SPECIMEN Ordering Facility: [facility] Address: [address] [address] Performed By: #### 2 4321-2 #### [facility] CLIA [id number] [address] [place] AST With P-5'-P [Catalytic activity/Vol] 39 U/L Normal 14-40 [facility] Comment on above: Order Comment: Speci men Type: BLOOD SPECIMEN Ordering Facility: [facility] Address: [address] [place] [address] Performed By: #### 2 4321-2 #### [facility] CLIA [id number] [address] [place] Bilirubin [Mass/Vol] 0.5 mg/dL Normal 0.2-1.3 [facility] Comment on above: Order Comment: Speci men Type: BLOOD SPECIMEN Ordering Facility: [facility] Address: [address] [place] [address] Performed By: #### 2 4321-2 #### [facility] CLIA [id number] [address] [place] Calcium [Mass/Vol] 9.1 mg/dL Normal 8.5-10.2 [facility] Comment on above: Order Comment: Speci men Type: BLOOD SPECIMEN Ordering Facility: [facility] Address: [address] [place] [address] Performed By: #### 2 4321-2 #### [facility] CLIA [id number] [address] [place] Chloride [Moles/Vol] 106 mmol/L High 97-105 [facility] Comment on above: Order Comment: Speci men Type: BLOOD SPECIMEN Ordering Facility: [facility] Address: [address] [place] [address] Performed By: #### 2 4321-2 #### [facility] CLIA [id number] [address] [place] CO2 [Moles/Vol] 22 mmol/L Normal 22-30 [facility] Comment on above: Order Comment: Speci men Type: BLOOD SPECIMEN Ordering Facility: [facility] Address: [address] [place] [address] Performed By: #### 2 4321-2 #### [facility] CLIA [id number] [address] [place] [facility] Creatinine [Mass/Vol] 0.70 mg/dL Low 0.73-1.22 [facility] Comment on above: Order Comment: Yeyo velasquez Type: BLOOD SPECIMEN Ordering Facility: [facility] Address: [address] [address] Performed By: #### 2 4321-2 #### [facility] CLIA [id number] [address] Creatinine and Glomerular filtration rate.predicted panel (S/P/Bld) 125 mL/min/1.73m??? Normal >=60 [facility] Comment on above: Order Comment: Yeyo velasquez Type: BLOOD SPECIMEN Ordering Facility: [facility] Address: [address] [place] [address] Result Comment: Erica mated Glomerular Filtration Rate (eGFR) is calculated using the 2020 CKD-EPI creatinine equation. This equation utilizes serum creatinine, sex, and age as parameters. The creatinine assay has traceable calibration to isotope dilution-mass spectrometry. Refer to KDIGO guidelines for clinical interpretation. In patients with unstable renal function, e.g. those with acute kidney injury, the eGFR may not accurately reflect actual GFR. Performed By: #### 2 4321-2 #### [facility] CLIA [id number] [address] [place] [facility] Glucose [Mass/Vol] 105 mg/dL High 74-99 [facility] Comment on above: Order Comment: Yeyo velasquez Type: BLOOD SPECIMEN Ordering Facility: [facility] Address: [address] [place] [address] Result Comment: The [place] Diabetes Association (ADA) provides guidance for cutoff values for fasting glucose and random glucose. The ADA defines fasting as no caloric intake for at least 8 hours. Fasting plasma glucose results between 100 to 125 mg/dL indicate increased risk for diabetes (prediabetes). Fasting plasma glucose results greater than or equal to 126 mg/dL meet the criteria for diagnosis of diabetes. In the absence of unequivocal hyperglycemia, results should be confirmed by repeat testing. In a patient with classic symptoms of hyperglycemia or hyperglycemic crisis, random plasma glucose results greater than or equal to 200 mg/dL meet the criteria for diagnosis of diabetes. Reference: Standards of Medical Care in Diabetes 2016, [place] Diabetes Association. Diabetes Care. 2016.39(Suppl 1). Performed By: #### 2 4321-2 #### [facility] CLIA [id number] [address] [place] [facility] Potassium [Moles/Vol] 3.7 mmol/L Normal 3.7-5.1 [facility] Comment on above: Order Comment: Speci men Type: BLOOD SPECIMEN Ordering Facility: [facility] Address: [address] [place] [address] Performed By: #### 2 1-2 #### [facility] CLIA [id number] [address] [place] [address] [place] Protein [Mass/Vol] 7.0 g/dL Normal 6.3-8.0 [facility] Comment on above: Order Comment: Speci men Type: BLOOD SPECIMEN Ordering Facility: [facility] Address: [address] [address] Performed By: #### 2 4321-2 #### [facility] CLIA [id number] [address] [place] Sodium [Moles/Vol] 140 mmol/L Normal 136-144 [facility] Comment on above: Order Comment: Arianei men Type: BLOOD SPECIMEN Ordering Facility: [facility] Address: [address] [address] Performed By: #### 2 4321-2 #### [facility] CLIA [id number] [address] [place] Urea nitrogen [Mass/Vol] 13 mg/dL Normal 9-24 [facility] Comment on above: Order Comment: Speci men Type: BLOOD SPECIMEN Ordering Facility: [facility] Address: [address] [address] Performed By: #### 2 4321-2 #### [facility] CLIA [id number] [address] ED NOTEon 08-28-2023 ED NOTE HNO ID: [id number] Author: JASMIN MCCLURE RN Service: ? Author Type: Registered Nurse Type: ED Notes Filed: 08/28/2023 19:10 Note Text: Report given to Fouzia PAL [facility] ED NOTE HNO ID: [id number] Author: JASMIN MCCLURE RN Service: ? Author Type: Registered Nurse Type: ED Notes Filed: 08/28/2023 17:32 Note Text: Dr. Dalton notified pt is requesting other pain medication [facility] ED NOTE HNO ID: [id number] Author: JASMIN MCCLURE RN Service: ? Author Type: Registered Nurse Type: ED Notes Filed: 08/28/2023 16:49 Note Text: Pt had minimal to no stool in toilet, no blood noted. Pt now requesting sprite. Pt educated on NPO status until images result. [facility] ED NOTE HNO ID: [id number] Author: JASMIN MCCLURE RN Service: ? Author Type: Registered Nurse Type: ED Notes Filed: 08/28/2023 16:46 Note Text: Pt ambulatory to the bathroom with Histopath Tech, presented with steady gait [facility] ED NOTE HNO ID: [id number] Author: JASMIN MCCLURE RN Service: ? Author Type: Registered Nurse Type: ED Notes Filed: 08/28/2023 16:05 Note Text: X ray at bedside [facility] ED NOTE HNO ID: [id number] Author: JASMIN MCCLURE RN Service: ? Author Type: Registered Nurse Type: ED Notes Filed: 08/28/2023 15:52 Note Text: X ray notified pt is ready for scans. [facility] ED NOTE HNO ID: [id number] Author: JASMIN MCCLURE RN Service: ? 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 [facility] ED NOTE HNO ID: [id number] Author: BEHZAD ROMEO RN Service: ? Author Type: Registered Nurse Type: ED Notes Filed: 08/28/2023 15:33 Note Text: Bed: 30-BH Expected date: Expected time: Means of arrival: Comments: Normal [facility] ED PROV NOTEon 08-28-2023 ED PROV NOTE HNO ID: [id number] Author: SERGIO FARMER DO Service: Emergency Medicine Author Type: Physician Type: ED Provider Notes Filed: 08/28/2023 19:32 Note Text: Attending Note I personally saw and examined the patient. I reviewed the resident's note. I agree with the resident's assessment and plan unless otherwise noted. I was present for the significant portion of the procedure(s). Brief HPI: Keke Pemberton is a 33 year old male with a PMH as documented below who presents for evaluation of a foreign body ingestion. Patient reported swallowing his razor blade at retirement earlier today. He states he had no specific reason for the ingestion and he has swallowed a number of some objects in the past. He denies doing this with the intent of self-harm. Officer described the razor blade is a malleable small shaving razor. Patient states he had some nausea with epigastric abdominal pain since the episode. Denies vomiting. Denies any hematochezia or hematemesis. Denies any other coingestions. PAST MEDICAL HISTORY Diagnosis Date ADHD (attention deficit hyperactivity disorder) Physical Exam: Patient awake alert and resting in no acute distress. With lungs normal respiratory effort. Heart with regular rate and rhythm. Abdomen soft and nontender. Denies SI or HI. Denies any audio or visual hallucinations. Appropriately interactive and cooperative. Plan: Plan to obtain x-ray to evaluate for any possible foreign body ingestion and also to better localize the object. If in the stomach or proximal GI tract, expect likely GI consultation for possible removal given the sharp edge of the object. Plan to continue monitoring the patient closely in the interim. Disposition pending results of above. See resident note for dis and further position details Note created using [employer] dictation software and there may be minor grammatical, word sequence or spelling errors. SERGIO FARMER 08/28/231931 [facility] ED PROV NOTE HNO ID: [id number] Author: SERGIO FARMER DO Service: Emergency Medicine Author Type: Physician Type: ED Provider Notes Filed: 08/28/2023 22:46 Note Text: ED Provider Note Patient Name: Keke Pemberton : 1990 SERVICE DATE: 08/28/23 History Patient presents with: Foreign Body Ingestion: Pt arrives after swallowing a couple razor blades, pt unsure why he did it denies SI from [facility] chief digital media officer stating he has done things like this befoere 33-year-old male with past medical history of bipolar disorder, frequent foreign body ingestions presents to ED with concerns for ingestion of razor blades. At about 9 AM this morning he swallowed 2 razor blades. Upon arrival patient says he has a little bit of suprapubic pain but no other symptoms. No nausea or vomiting. No bloody bowel movements. Patient is coming in while in custody from police. Denies doing it in an attempt to commit suicide. PAST MEDICAL HISTORY Diagnosis Date ADHD (attention deficit hyperactivity disorder) PAST SURGICAL HISTORY Procedure Laterality Date NONE FAMILY HISTORY Problem Relation Age of Onset Cancer Mother Heart Father Social History Tobacco Use Smoking status: Every Day Packs/day: .5 Types: Cigarettes Smokeless tobacco: Former Vaping Use Vaping Use: Never used Substance and Sexual Activity Alcohol use: Not Currently Comment: occassional Drug use: Yes Types: Marijuana Comment: Hx of IV Sexual activity: Not on file ALLERGIES No Known Allergies Review of Systems Constitutional: Negative for chills, diaphoresis and fever. HENT: Negative for congestion, ear pain and sore throat. Eyes: Negative for photophobia, pain, redness and visual disturbance. Respiratory: Negative for cough and shortness of breath. Cardiovascular: Negative for chest pain and leg swelling. Gastrointestinal: Negative for abdominal pain, constipation, diarrhea, nausea and vomiting. Genitourinary: Negative for dysuria and frequency. Musculoskeletal: Negative for back pain and myalgias. Skin: Negative for rash. Neurological: Negative for syncope, weakness and numbness. Psychiatric/Behavior al: Negative for confusion. All other systems reviewed and are negative. Physical Exam Vitals [08/28/23 1530] BP Pulse Temp Temp src Resp SpO2 Weight Height 119/77 70 36.9 ?C (98.4 ?F) Oral 16 98 % 63.5 kg (140 lb) 1.803 m (5' 11) Physical Exam Vitals and nursing note reviewed. Constitutional: General: He is not in acute distress. Appearance: Normal appearance. He is not ill-appearing. HENT: Head: Normocephalic and atraumatic. Mouth/Throat: Mouth: Mucous membranes are moist. Pharynx: Oropharynx is clear. Eyes: Extraocular Movements: Extraocular movements intact. Pupils: Pupils are equal, round, and reactive to light. Cardiovascular: Rate and Rhythm: Normal rate and regular rhythm. Pulses: Normal pulses. Heart sounds: No murmur heard. No gallop. Pulmonary: Effort: Pulmonary effort is normal. No respiratory distress. Breath sounds: Normal breath sounds. No wheezing or rhonchi. Abdominal: General: Abdomen is flat. Palpations: Abdomen is soft. Tenderness: There is no abdominal tenderness. There is no guarding or rebound. Musculoskeletal: Right lower leg: No edema. Left lower leg: No edema. Skin: General: Skin is warm and dry. Neurological: General: No focal deficit present. Mental Status: He is alert and oriented to person, place, and time. Diagnostic Testing ED Labs Ordered and Reviewed - No data to display Procedures ED Course / Clinical Impression Clinical Impressions as of 08/28/232022 Gastric foreign body, initial encounter MDM / Disposition / Plan HISTORIAN: Patient CHART REVIEW: Has had multiple admissions for foreign body ingestion in the past PATIENT SUMMARY: 33-year-old male presents to ED with razor blade ingestion. Vital signs stable. PLAN: Will obtain chest x-ray and KUB RESULTS: Imaging significant for a foreign body within the stomach. DISPOSITION PLAN: Due to the razor blade in the stomach I spoke with GI, Dr. Portillo. He recommended emergent EGD and MICU consultation. I consulted MICU who came to evaluate the patient. They agreed to admit the patient to their service for further observation and to await EGD done tonight. At this time patient is admitted in stable condition to Dr. Underwood. SIGNATURE: DO Davonte Rayo RYAN 08/28/232023 CURRENT, SERGIO 08/28/23 4284 Normal [facility] HISTORY PHYSICALon HISTORY PHYSICAL HNO ID: [id number] Author: INO UNDERWOOD MD Service: Critical Care Author Type: Resident Type: H&P Filed: 08/28/2023 20:13 Note Text: Attestation signed by Ino Underwood MD at 08/28/2023 8:13 PM [facility] STAFF PHYSICIAN NOTE OF PERSONAL INVOLVEMENT IN CARE I have reviewed the history and physical examination obtained and documented by the resident and I personally participated in the franklin components. I have discussed the case and management of the patient's care. Ino Underwood MD 8:12 PM August 28, 2023 MICU HANDP PATIENT NAME: Keke Pemberton REASON FOR ADMISSION: Foreign body ingestion - high risk EGD DATE: August 28, 2023 Subjective HPI Mr. Keke Pemberton is a 33 year old male with PMH: - Bipolar disorder on bupropion, carbamazepine (no recent documented fills) - ADHD - Anxiety disorder - History of swallowed foreign bodies - Tobacco use Patient presented to [facility] from [facility] on 08/28/2023 with complaints of foreign body ingestion. Patient states that he has been incarcerated for the last week in the [facility] and has not had access to psych medications. He states that he intentionally ingested two razors today with the intent of getting attention so that he could get his psych medications. He endorses moderate sharp abdominal pain across his lower abdomen. Endorses multiple episodes of nonbloody loose stools this AM. Denies nausea, chest pain, difficulty swallowing, sore throat, headaches, vision changes, rashes wounds. He states he follows with psych in [place], [place]. Of note, there are no recent fills of bupropion or carbamazepine in the chart. He is a current smoker. Denies other substance use today. Upon arrival to the ED, patient noted to be HDS. ED workup was significant for CXR and KUB demonstrating foreign body in the fundus of the stomach. GI on-call contacted by ED - plans for emergent endoscopy tonight. Review of Systems Constitutional: Negative for diaphoresis, fatigue and fever. HENT: Negative for sore throat and trouble swallowing. Respiratory: Negative for cough, shortness of breath and wheezing. Cardiovascular: Negative for chest pain, palpitations and leg swelling. Gastrointestinal: Positive for abdominal pain and diarrhea. Negative for abdominal distention, anal bleeding, blood in stool, constipation, nausea, rectal pain and vomiting. Genitourinary: Negative for difficulty urinating, dysuria, frequency and urgency. Musculoskeletal: Negative for back pain. Skin: Negative for color change, pallor, rash and wound. Neurological: Negative for dizziness, light-headedness and numbness. Hematological: Negative for adenopathy. Does not bruise/bleed easily. Psychiatric/Behavior al: Negative for agitation, confusion, decreased concentration, dysphoric mood, hallucinations, self-injury, sleep disturbance and suicidal ideas. The patient is not nervous/anxious and is not hyperactive. PAST MEDICAL HISTORY Diagnosis Date ADHD (attention deficit hyperactivity disorder) PAST SURGICAL HISTORY Procedure Laterality Date NONE FAMILY HISTORY Problem Relation Age of Onset Cancer Mother Heart Father Social History Tobacco Use Smoking status: Every Day Packs/day: .5 Types: Cigarettes Smokeless tobacco: Former Vaping Use Vaping Use: Never used Substance Use Topics Alcohol use: Not Currently Comment: occassional Drug use: Yes Types: Marijuana Comment: Hx of IV No current facility-administere d medications on file prior to encounter. Current Outpatient Medications on File Prior to Encounter Medication Sig pantoprazole DR (PROTONIX) 40 mg tablet Take 1 tablet by mouth daily at 6 am. buprenorphine-naloxo ne (SUBOXONE) 8-2 mg film Dissolve 2 Film under the tongue once daily for 30 days. buPROPion XL (WELLBUTRIN XL) 150 mg 24 hr tablet Take 1 tablet by mouth once daily. carBAMazepine (TEGRETOL) 200 mg tablet Take 1 tablet by mouth two times a day. naloxone 4 mg/actuation nasal spray (NARCAN) Use 1 spray in one nostril as needed for overdose. May repeat every 2 to 3 min in alternating nostrils until medical assistance is available Objective OBJECTIVE BP 108/76 Pulse 66 Temp 36.9 ?C (98.4 ?F) (Oral) Resp 23 Ht 180.3 cm (5' 11) Wt 63.5 kg (140 lb) SpO2 95% BMI 19.53 kg/m? Temp (24hrs), Av.9 ?C (98.4 ?F), Min:36.9 ?C (98.4 ?F), Max:36.9 ?C (98.4 ?F) Body mass index is 19.53 kg/m?., Hemoglobin A1C (%) Date Value 04/25/2023 5.1 No intake or output data in the 24 hours ending 08/28/23 1907 Physical Exam Vitals and nursing note reviewed. Constitutional: Appearance: Normal appearance. Comments: Patient laying in bed with conservation officer at bedside. In ankle and wrist-cuffs per [facility] chief analytics officer. HENT: Head: Normocephalic. (more content not included)... Normal [facility] STAPHYLOCOCCUS AUREUS AND MR SA SCREEN, PCR, NASALon 08-28-2023 S. aureus and MRSA panel JEWEL+probe (Nose) Normal Negative [facility] Comment on above: Order Comment: Speci men Type: SWAB Ordering Facility: [facility] Address: [address] [place] [address] Result Comment: Nega tive for Staphylococcus aureus by PCR. Negative for MRSA by PCR Performed By: #### S APCR #### [facility] CLIA [id number] [address] [place] [address] [place] Upper GI endoscopyon 024 Upper GI endoscopy [facility] Gastrointestinal Endoscopy Patient Name: Keke Pemberton Procedure Date: 08/28/2023 8:53 PM Date of : 1990 Admit Type: Inpatient Room: [address] [address] Gender: Male Note Status: Finalized Attending MD: Mc Portillo MD, [id number] Procedure: Upper GI endoscopy Indications: Foreign body in the stomach Providers: Mc Portillo MD Patient Profile: This is a 33 year old male. Refer to note in patient chart for documentation of history and physical. Medicines: General Anesthesia Complications: No immediate complications. Procedure: Pre-Anesthesia Assessment: - Prior to the procedure, a History and Physical was performed, and patient medications and allergies were reviewed. The patient's tolerance of previous anesthesia was also reviewed. The risks and benefits of the procedure and the sedation options and risks were discussed with the patient. All questions were answered, and informed consent was obtained. Prior Anticoagulants: The patient has taken no anticoagulant or antiplatelet agents. ASA Grade Assessment: I - A normal, healthy patient. After reviewing the risks and benefits, the patient was deemed in satisfactory condition to undergo the procedure. After obtaining informed consent, the endoscope was passed under direct vision. Throughout the procedure, the patient's blood pressure, pulse, and oxygen saturations were monitored continuously. The Endoscope was introduced through the mouth, and advanced to the second part of duodenum. I was present and participated during the entire procedure, including non-franklin portions, and during the administration and monitoring of Moderate Sedation. The upper GI endoscopy was accomplished without difficulty. The patient tolerated the procedure well. Moderate Sedation: Exam was performed under general anesthesia (GA) Findings: The examined esophagus was normal. Razor blade wrapped in a piece of cloth and plastic wrap was found in the gastric fundus. This was moved from fundus to antrum with raptor grasper and then removal was accomplished with a snare with FB aligned in a longitudinal position. The foreign body removal site was examined following endoscope reinsertion and showed superficial erosions in stomach but healthy appearing mucosa in entire esophagus including upper esophageal sphincter and GEJ. Estimated blood loss was minimal. The examined duodenum was normal. Estimated Blood Loss: Estimated blood loss: none. Impression: - Normal esophagus. - Razor blade wrapped in clothe and plastic wrap were found in the stomach. Removal was successful. - Normal examined duodenum. Recommendation: - Return patient to ICU for ongoing care. - Clear liquid diet after extubation. - Continue present medications. Attending Participation: I personally performed the entire procedure. Scope In: 8:58:08 PM Scope Out: 9:16:12 PM MD Mc Mazariegos MD 08/28/2023 9:37:54 PM This report has been signed electronically by Mc Portillo MD Number of Addenda: 0 Note Initiated On: 08/28/2023 8:53 PM Normal [facility] XR ABDOMEN 1V SUPINEon 08-27 XR ABDOMEN 1V SUPINE * * *Final Report* * * DATE OF EXAM: Aug 28 2023 4:42PM AKX 5289 - XR ABDOMEN 1V SUPINE / PROCEDURE REASON: Other * * * * Physician Interpretation * * * * EXAMINATION: XR ABDOMEN 1V SUPINE PATIENT/TECHNOLOGIST PROVIDED HISTORY: foreign body CLINICAL INFORMATION: Other TECHNIQUE: Supine abdomen, 1 image(s) COMPARISON: 08/28/2023 RESULT: Previously seen radiopaque foreign body in the stomach is not imaged and is below the imaging [id number].. No dilated bowel. Osseous structures are intact. IMPRESSION: Previously seen radiopaque foreign body in the stomach is not imaged and is below the imaging [id number]. Repeat imaging to include the upper abdomen is recommended. Recreation Facilities Supervisor: HEAVENLY Transcribe Date/Time: Aug 28 2023 6:19P Dictated by : TYLER SORIA MD This examination was interpreted and the report reviewed and electronically signed by: TYLER SORIA MD on Aug 28 2023 6:20PM EST [id number] CN Normal [facility] XR ABDOMEN 1V SUPINE * * *Final Report* * * DATE OF EXAM: Aug 28 2023 4:14PM AKX 5289 - XR ABDOMEN 1V SUPINE / PROCEDURE REASON: Ingested foreign body * * * * Physician Interpretation * * * * EXAM TITLE: AP ABDOMEN DATE: 08/28/2023 COMPARISON: AP abdomen 04/10/2023. CLINICAL INDICATION/HISTORY: Ingested foreign body. TECHNIQUE: AP image is obtained of the abdomen. A additional image obtained to include the lower abdomen. FINDINGS: Hand cuffs/shackles are noted on the images. There is a indeterminate radiopaque foreign body projecting over the left upper quadrant, possibly in the stomach that measures approximately 3.0 cm in maximal length. No suspicious destructive osseous lesion. Bowel gas pattern is nonobstructive. No definite pathologic calcification. IMPRESSION: Indeterminate radiopaque foreign body in the left upper quadrant, possibly in the stomach. Correlate clinically. Recreation Facilities Supervisor: HEAVENLY Transcribe Date/Time: Aug 28 2023 5:15P Dictated by : NIGHAT CONRAD MD This examination was interpreted and the report reviewed and electronically signed by: NIGHAT CONRAD MD on Aug 28 2023 5:19PM EST [id number] CN Normal [facility] XR CHEST 1V FRONTALon 2023 XR CHEST 1V FRONTAL * * *Final Report* * * DATE OF EXAM: Aug 28 2023 5:06PM AKX 5290 - XR CHEST 1V FRONTAL / PROCEDURE REASON: Other * * * * Physician Interpretation * * * * EXAMINATION: CHEST RADIOGRAPH (SINGLE VIEW AP OR PA) CLINICAL HISTORY: Other, foreign body MQ: [id number] Comparison: Foreign body RESULT: Lines, tubes, and devices: None. Lungs and pleura: No consolidation. No lung mass. No pleural effusion. Cardiomediastinal silhouette: Normal cardiomediastinal silhouette. Other: No acute osseous abnormality. Foreign body within the stomach is better visualized on the abdominal radiograph. IMPRESSION: No acute radiographic findings within the chest. Foreign body within the stomach fundus, better visualized on the abdominal radiograph. Recreation Facilities Supervisor: PSCB Transcribe Date/Time: Aug 28 2023 6:03P Dictated by : ABDULLAHI WILHELM MD This examination was interpreted and the report reviewed and electronically signed by: ABDULLAHI WILHELM MD on Aug 28 2023 6:06PM EST [id number] Normal [facility] CBC W Auto Differential pane l (Bld)on 08-22-2023 Basophils (Bld) [#/Vol] 0.0 10*3/uL 0.0 - 0.2 10*3/uL [facility] Basophils/100 WBC (Bld) 0.3 % 0.0 - 2.0 % [facility] Eosinophils (Bld) [#/Vol] 0.2 10*3/uL 0.0 - 0.5 10*3/uL [facility] Eosinophils/100 WBC (Bld) 2.3 % 0.0 - 6.0 % [facility] Erythrocyte distribution width (RBC) [Ratio] 13.2 % 11.5 - 15.0 % [facility] Hematocrit (Bld) [Volume fraction] 41.3 % 40.0 - 52.0 % [facility] Hemoglobin (Bld) [Mass/Vol] 14.0 g/dL 13.0 - 18.0 g/dL [facility] Recensus Immature granulocytes (Bld) [#/Vol] 0.0 10*3/uL NINF - 0.1 10*3/uL [facility] Recensus Immature granulocytes/100 WBC (Bld) 0.4 % 0.0 - 2.0 % [facility] Interpretation and review of laboratory results Abnormal [facility] Lymphocytes (Bld) [#/Vol] 2.3 10*3/uL 1.0 - 4.3 10*3/uL [facility] Lymphocytes/100 WBC (Bld) 24.5 % 15.0 - 45.0 % [facility] MCH (RBC) [Entitic mass] 29.6 pg 26.0 - 34.0 pg [facility] MCHC (RBC) [Mass/Vol] 33.9 % 30.5 - 36.0 % [facility] MCV (RBC) [Entitic vol] 87.3 fL 77.0 - 99.0 fL [facility] Monocytes (Bld) [#/Vol] 1.1 10*3/uL High 0.0 - 0.9 10*3/uL [facility] Monocytes/100 WBC (Bld) 11.4 % 5.0 - 13.0 % [facility] Neutrophils (Bld) [#/Vol] 5.7 10*3/uL 1.8 - 7.5 10*3/uL [facility] Neutrophils/100 WBC (Bld) 61.1 % 38.0 - 82.0 % [facility] Nucleated RBC/100 WBC (Bld) [Ratio] 0.0 % [facility] Platelet mean volume (Bld) [Entitic vol] 9.4 fL 9.0 - 12.7 fL [facility] Comment on above: MPV is a calculated measurement using platelet volume ratio Platelets (Bld) [#/Vol] 258 10*3/uL 140 - 440 10*3/uL [facility] RBC (Bld) [#/Vol] 4.73 10*6/uL 4.40 - 5.9 0 10*6/uL [facility] WBC (Bld) [#/Vol] 9.3 10*3/uL 3.6 - 10.7 10*3/uL [facility] CBC WITH AUTO DIFFERENTIALon 08-22-2023 Basophils (Bld) [#/Vol] 0.0 10*3/uL Normal 0.0-0.2 [facility] Comment on above: Performed By: #### L [id number] #### Correctional Supervising Cook: JENNA BOSTON ([id number]) [employer] (SWRLAB) [address] [place] [address] [place] Basophils/100 WBC (Bld) 0.3 % Normal 0.0-2.0 [facility] Comment on above: Performed By: #### L [id number] #### Correctional Supervising Cook: JENNA BOSTON ([id number]) [employer] (SWRLAB) [address] [place] [address] Eosinophils (Bld) [#/Vol] 0.2 10*3/uL Normal 0.0-0.5 [facility] Comment on above: Performed By: #### L [id number] #### Correctional Supervising Cook: JENNA BOSTON ([id number]) [employer] (SWRLAB) [address] [place] [address] [place] Eosinophils/100 WBC (Bld) 2.3 % Normal 0.0-6.0 [facility] Comment on above: Performed By: #### L [id number] #### Correctional Supervising Cook: JENNA BOSTON ([id number]) [employer] (SWRL[employer]) [address] [place] [address] Erythrocyte distribution width (RBC) [Ratio] 13.2 % Normal 11.5-15.0 [facility] Comment on above: Performed By: #### L [id number] #### Correctional Supervising Cook: JENNA BOSTON ([id number]) [employer] (SWRLAB) [address] [place] [address] Hematocrit (Bld) [Volume fraction] 41.3 % Normal 40.0-52.0 [facility] Comment on above: Performed By: #### L [id number] #### Correctional Supervising Cook: JENNA BOSTON ([id number]) [employer] (SWRL[employer]) [address] [place] [address] Hemoglobin (Bld) [Mass/Vol] 14.0 g/dL Normal 13.0-18.0 [facility] Comment on above: Performed By: #### L [id number] #### Correctional Supervising Cook: JENNA BOSTON ([id number]) [facility] (SWRL[employer]) [address] [place] [address] IMMATURE GRANS % 0.4 % Normal 0.0-2.0 [facility] Comment on above: Performed By: #### L [id number] #### Correctional Supervising Cook: JENNA BOSTON ([id number]) [facility] [employer] (SWRL[employer]) [address] [place] [address] IMMATURE GRANS ABSOLUTE 0.0 10*3/uL Normal <0.1 [facility] Comment on above: Performed By: #### L [id number] #### Correctional Supervising Cook: JENNA BOSTON ([id number]) [facility] (SWRLAB) [address] [place] [address] Lymphocytes (Bld) [#/Vol] 2.3 10*3/uL Normal 1.0-4.3 [facility] Comment on above: Performed By: #### L [id number] #### Correctional Supervising Cook: JENNA BOSTON ([id number]) [facility] [employer] (SWRL[employer]) [address] [place] [address] Lymphocytes/100 WBC (Bld) 24.5 % Normal 15.0-45.0 [facility] Comment on above: Performed By: #### L [id number] #### Correctional Supervising Cook: JENNA BOSTON ([id number]) [facility] [employer] (SWRL[employer]) [address] [place] [address] MCH (RBC) [Entitic mass] 29.6 pg Normal 26.0-34.0 [facility] Comment on above: Performed By: #### L [id number] #### Correctional Supervising Cook: JENNA BOSTON ([id number]) [facility] [employer] (SWRL[employer]) [address] [place] [address] [place] MCHC 33.9 % Normal 30.5-36.0 [facility] Comment on above: Performed By: #### L [id number] #### Correctional Supervising Cook: JENNA BOSTON ([id number]) [employer] (SWRL[employer]) [address] [place] [address] MCV (RBC) [Entitic vol] 87.3 fL Normal 77.0-99.0 S [facility] Comment on above: Performed By: #### L [id number] #### Correctional Supervising Cook: JENNA BOSTON ([id number]) [employer] (SWRLAB) [address] [place] [address] Monocytes (Bld) [#/Vol] 1.1 10*3/uL High 0.0-0.9 [facility] Comment on above: Performed By: #### L [id number] #### Correctional Supervising Cook: JENNA BOSTON ([id number]) [employer] (SWRLAB) [address] [place] [address] [place] Monocytes/100 WBC (Bld) 11.4 % Normal 5.0-13.0 S [facility] Comment on above: Performed By: #### L [id number] #### Correctional Supervising Cook: JENNA BOSTON ([id number]) [employer] (SWRLAB) [address] [place] [address] [place] NEUTROPHILS ABSOLUTE 5.7 10*3/uL Normal 1.8-7.5 [facility] Comment on above: Performed By: #### L [id number] #### Correctional Supervising Cook: JENNA BOSTON ([id number]) [employer] (SWRL[employer]) [address] [place] [address] [place] Neutrophils/100 WBC (Bld) 61.1 % Normal 38.0-82.0 [facility] Comment on above: Performed By: #### L [id number] #### Correctional Supervising Cook: JENNA BOSTON ([id number]) SPENSERA [employer] (SWRLAB) [address] [place] [address] NRBC 0.0 /100 WBCs Normal 0.0-2.0 [facility] Comment on above: Performed By: #### L [id number] #### Correctional Supervising Cook: JENNA BOSTON ([id number]) [facility] [employer] ([employer]RL[employer]) [address] [place] [address] Platelet mean volume (Bld) [Entitic vol] 9.4 fL Normal 9.0-12.7 [facility] Comment on above: Result Comment: MPV is a calculated measurement using platelet volume ratio Performed By: #### L [id number] #### Correctional Supervising Cook: JENNA BOSTON ([id number]) [facility] [employer] (SWRL[employer]) [address] [place] [address] Platelets (Bld) [#/Vol] 258 10*3/uL Normal 140-440 [facility] Comment on above: Performed By: #### L [id number] #### Correctional Supervising Cook: JENNA BOSTON ([id number]) [facility] [employer] (SWRL[employer]) [address] [place] [address] RBC (Bld) [#/Vol] 4.73 10*6/uL Normal 4.40-5.90 [facility] Comment on above: Performed By: #### L [id number] #### Correctional Supervising Cook: JENNA BOSTON ([id number]) [facility] [employer] (SWRL[employer]) [address] [place] [address] WBC (Bld) [#/Vol] 9.3 10*3/uL Normal 3.6-10.7 [facility] Comment on above: Performed By: #### L [id number] #### Correctional Supervising Cook: JENNA BOSTON ([id number]) [facility] (SWRL[employer]) [address] [place] [address] COMPREHENSIVE METABOLIC PANE Vinicio 08-22-2023 Albumin [Mass/Vol] 4.4 g/dL Normal 3.5-5.0 [facility] Comment on above: Performed By: #### L 747, LAB17 #### Correctional Supervising Cook: JENNA BOSTON ([id number]) [facility] GATRISH [employer] (SWRLAB) [address] [place] [address] ALP [Catalytic activity/Vol] 73 U/L Normal 38-126 [facility] Comment on above: Performed By: #### L 74Steven, LAB17 #### Correctional Supervising Cook: JENNA BOSTON ([id number]) [facility] TRISH [employer] (SWRLAB) [address] ALT [Catalytic activity/Vol] 44 U/L Normal 0-49 [facility] Comment on above: Performed By: #### L 747, LAB17 #### Correctional Supervising Cook: JENNA BOSTON ([id number]) [facility] GATRISH [employer] (SWRLAB) [address] [place] [address] Anion gap [Moles/Vol] 12 mmol/L Normal 3-13 [facility] Comment on above: Performed By: #### Rebeca GOMES74Steven, LAB17 #### Correctional Supervising Cook: JENNA BOSTON ([id number]) [facility] GATRISH [employer] (SWRLAB) [address] [place] [address] AST [Catalytic activity/Vol] 45 U/L Normal 15-46 [facility] Comment on above: Performed By: #### Rebeca NORIEGA, LAB17 #### Correctional Supervising Cook: JENNA BOSTON ([id number]) [facility] TRISH [employer] (SWRLAB) [address] [place] [address] Bilirubin [Mass/Vol] 0.4 mg/dL Normal 0.2-1.3 [facility] Comment on above: Performed By: #### L 747, LAB17 #### Correctional Supervising Cook: JENNA BOSTON ([id number]) [facility] GATRISH [employer] (SWRLAB) [address] [place] [address] [place] Calcium [Mass/Vol] 9.5 mg/dL Normal 8.4-10.4 [facility] Comment on above: Performed By: #### Rebeca GOMES74Steven, LAB17 #### Correctional Supervising Cook: JENNA BOSTON ([id number]) [facility] [employer] (SWRLAB) [address] [place] [address] [place] Chloride [Moles/Vol] 105 mmol/L Normal 98-107 [facility] Comment on above: Performed By: #### Rebeca NORIEGA, LAB17 #### Correctional Supervising Cook: JENNA BOSTON ([id number]) [facility] [employer] (SWRLAB) [address] [place] [address] [place] CO2 [Moles/Vol] 22 mmol/L Normal 22-30 [facility] Comment on above: Performed By: #### Rebeca GOMES747, LAB17 #### Correctional Supervising Cook: JENNA BOSTON ([id number]) [facility] [employer] (SWRLAB) [address] [place] [address] [place] Creatinine [Mass/Vol] 0.91 mg/dL Normal 0.66-1.25 [facility] Comment on above: Performed By: #### Rebeca GOMES74Steven, LAB17 #### Correctional Supervising Cook: JENNA BOSTON ([id number]) [facility] [employer] (SWRLAB) [address] [place] [address] GLOMERULAR FILTRATION RATE ML/MIN/1.73 SQ M.PREDICTED >90.0 Normal >60.0 [facility] Comment on above: Result Comment: Calc ulation based on the Chronic Kidney Disease Epidemiology Collaboration (CKD-EPI) equation refit without adjustment for race Performed By: #### L 747, LAB17 #### Correctional Supervising Cook: JENNA BOSTON ([id number]) [facility] [employer] (SWRLAB) [address] [place] [address] [place] Glucose [Mass/Vol] 96 mg/dL Normal 70-100 [facility] Comment on above: Performed By: #### L 747, LAB17 #### Correctional Supervising Cook: JENNA BOSTON ([id number]) [facility] [employer] (SWRLAB) [address] Potassium [Moles/Vol] 3.5 mmol/L Normal 3.5-5.1 [facility] Comment on above: Performed By: #### L AB747, LAB17 #### Correctional Supervising Cook: JENNA BOSTON ([id number]) [facility] [employer] (SWRLAB) [address] [place] [address] Protein [Mass/Vol] 7.4 g/dL Normal 6.3-8.2 [facility] Comment on above: Performed By: #### L AB747, LAB17 #### Correctional Supervising Cook: JENNA BOSTON ([id number]) [facility] [employer] (SWRL[employer]) [address] [place] [address] Sodium [Moles/Vol] 139 mmol/L Normal 135-145 [facility] Comment on above: Performed By: #### L AB747, LAB17 #### Correctional Supervising Cook: JENNA BOSTON ([id number]) [facility] [employer] (SWRLAB) [address] [place] [address] Urea nitrogen [Mass/Vol] 17 mg/dL Normal 9-20 [facility] Comment on above: Performed By: #### L AB747, LAB17 #### Correctional Supervising Cook: JENNA BOSTON ([id number]) [facility] [employer] (SWRLAB) [address] [place] [address] Comprehensive metabolic 1998 panelon 08-22-2023 Albumin [Mass/Vol] 4.4 g/dL 3.5 - 5.0 g/dL [facility] ALP [Catalytic activity/Vol] 73 U/L 38 - 126 U/L [facility] ALT [Catalytic activity/Vol] 44 U/L 0 - 49 U/L [facility] Anion gap [Moles/Vol] 12 mmol/L 3 - 13 mmol/L [facility] AST [Catalytic activity/Vol] 45 U/L 15 - 46 U/L [facility] Bilirubin [Mass/Vol] 0.4 mg/dL 0.2 - 1 .3 mg/dL [facility] Calcium [Mass/Vol] 9.5 mg/dL 8.4 - 10. 4 mg/dL [facility] Chloride [Moles/Vol] 105 mmol/L 98 - 10 7 mmol/L [facility] CO2 [Moles/Vol] 22 mmol/L 22 - 30 mmol/L [facility] Creatinine [Mass/Vol] 0.91 mg/dL 0.66 - 1.25 mg/dL [facility] GFR/1.73 sq M.predicted MDRD (S/P/Bld) [Vol rate/Area] - PINF [facility] Comment on above: Calculation based on the Chronic Kidney Disease Epidemiology Collaboration (CKD-EPI) equation refit without adjustment for race Glucose [Mass/Vol] 96 mg/dL 70 - 100 mg/dL [facility] Interpretation and review of laboratory results Normal [facility] Potassium [Moles/Vol] 3.5 mmol/L 3.5 - 5.1 mmol/L [facility] Protein [Mass/Vol] 7.4 g/dL 6.3 - 8.2 g/dL [facility] Sodium [Moles/Vol] 139 mmol/L 135 - 145 mmol/L [facility] Urea nitrogen [Mass/Vol] 17 mg/dL 9 - 20 mg/dL [facility] D-DIMER,QUANTITATIVEon 08-21 D-DIMER, INNOVANCE 0.37 mg/L Normal <0.50 [facility] Comment on above: Result Comment: ISELA Shahid COMMENTS: Innovance D-Dimer values of <0.50 mg/L FEU can be used in combination with a pre-test probability model (e.g. Well's) to exclude pulmonary embolism (PE) disease, as well as an aid in the diagnosis of deep vein thrombosis (DVT). Performed By: #### L [id number] #### Correctional Supervising Cook: JENNA BOSTON ([id number]) [facility] FABIAN (SWZehraLAB) [address] [place] [address] ECG 12-LEADon 08-22-2023 ECG 12-LEAD IMPRESSION: SINUS TACHYCARDIA BORDERLINE RIGHT AXIS DEVIATION Electronically Signed On 08-22-2023 21:06:26 EDT by Stephy Glover Normal [facility] ED Nursing Noteon 08-22-2023 ED Nursing Note Below are additional resources that you may find beneficial in your treatment: 12-Step: Heroin Anonymous: Tao Donald: [phone], Danielito Bardales: [phone] Narcotics Anonymous: 888-GET_HOPE (718-687-1960) [employer] Alcohol Anonymous: [place]ronaa.org Miguel Anon: [phone]: 12-step program for families & friends of people with addiction. CRISIS: Homeless Hotline: 465.191.8043 [facility] HOMELESS SHELTERS [facility] 18/11 line-18/11 OFFICE: [phone] [facility]: [address] [place] [address] [phone] (24 Hours) Domestic Violence help line anytime: [phone] Crisis Hotline: 18/11- 645.123.2085 [facility] Addiction Helpline: 952.748.1847 (available 8:30 AM to 4:00 PM ) 2-1-1 2-1-1 helps people across [facility] find local resources when they don't know where to turn for help. We are available 24 hours a day, 7 days a week. For help, simply dial 2--1 to speak to one of our trained professionals. Methadone Treatment: [place], [place] [phone] [place], [place] [phone] [facility] [place], [place] [phone] [place] [phone] [facility] - [phone] ext. [phone] [facility] - [place], [place] [phone] [facility] ([place]) [phone] DETOX TREATMENT: [place], [place] [phone] /ADM Crisis Center: anytime @ [phone] for alcohol & drug addiction help. [facility] coordination: [phone] (Medicare not accepted) [facility] [place]: [phone] [place], [place]: [phone], [place], [place]: [phone] [facility] [place] [phone] Adolescent detox [place], [place] [phone] [facility] [place] - [place], [place]: [phone] [facility], [place] [phone] ext. [phone] [place], [place] (pt. must be medically cleared prior to admission in ED) [facility], [place] [phone] OUTPATIENT TREATMENT: [facility] @ [place], [place] [phone]. 1st Step MAT Program @ [facility] ED: [phone] 1st Step MAT Program @ [facility] ED: [phone] 1st Step MAT Program @ [facility] ED: [phone] Intensive Outpatient Programs- [place], [place] [phone] [place] [phone] [facility] [place] [phone] [facility]: [place], [place] [phone] or [phone]. [facility]: [phone] [facility], [place]: [phone], [place]: [phone] [facility] [place]: [phone] [facility], [place]: [phone], [place]: [phone] [place]. [place]: [phone] [place] [phone] Behavioral Health Services: [facility]: [phone], [place]/Joe-[phone], [place]- [phone] [facility], [place]: [phone], [place]: [phone] [facility], [place], [place] [phone] [facility], [place], [place] [phone] RESIDENTIAL TREATMENT FACILITIES: [facility]: inpt. Or outpt. - [phone] [facility], [place], [place] [phone] [facility], [place], [place] [phone] [facility] Residential tx[address] [place], [place] [phone] (admission coordinated by ADM Michelle Pagan ext [phone]) [facility] Tx[address] [place], [place]: [phone]; Men's services inpt. & women services - Outpt. [place], [place] [phone] [facility], [place], [place] [phone] [facility] [place] [phone] [facility], [place], [place] [phone] [facility], [place], [place] [phone] [facility] - [place], [place] [phone] [facility], [place], [place] [phone] [place], [place] [phone] OTHER SERVICES: [facility] - [facility] [employer]: [phone] [facility]: [phone] ext. [phone] Medicaid Health Coverage: [facility]: [phone] Junior Hopkins RN 08/22/232033 Normal [facility] ED Nursing Note Project MARSHA is available STATE-WIDE. Narcan/Naloxone is available WITHOUT prescription at most [place] [facility], including [facility], [facility], [facility] [employer], [employer], and others. It has a cost, but there is a free program through [facility] (and [facility] other [facility]). A full list of pharmacies is available at the [place] [employer] website, but calling your local pharmacy is likely to be successful. You can buy it for $50-100 (insurance may cover it) and have it ready for another person. What is Project MARSHA? Project MARSHA is a community-based drug overdose prevention and education project. Participants receive training on: Recognizing the signs and symptoms of overdose Distinguishing between different types of overdose Performing rescue breathing Calling emergency medical services Administering intranasal Naloxone Lj MCCOY is named in memory of Jillian Marshaphill Cordova, who struggled with addiction for years before dying of a witnessed opioid overdose on January 28, 2009. Lj MCCOY is an initiative of the [facility] Opiate Task Force and is funded in part by the [facility] Alcohol, Drug Addiction and Mental Health (ADM) Services [facility] Alcohol, Drug Addiction & Mental Health Services [place] [address] www.counts include 234 beds at the [facility].org WALK-IN HOURS: Tuesdays (every hour) from 3pm - 6pm THIS IS A FREE SERVICE TO ALL PARTICIPANTS Deaths Avoided With Naloxone A community-based drug overdose prevention and education project Emergency first aid for a suspected opioid overdose: If a person is exhibiting symptoms of an opioid overdose, these following life-saving measures should be taken immediately: Check to see if they can respond Give them a light shake, yell their name. Any response? If you don't get a response, try a STERNUM RUB (rub your knuckles in the middle of their chest where the ribs meet for 10 seconds). Call You do not need to mention drugs when you call - provide basic information: Give the address and location. Say I have a person who has stopped breathing and is unresponsive. Perform Rescue Breathing Make sure nothing is in their mouth. Tilt head back, lift chin & pinch nose. Start by giving two breaths making sure the chest rises. If the chest does not rise, tilt the head back more and make sure you are plugging their nose. Give Naloxone Assemble the nasal spray Naloxone. [place] half (1 ml) up one nostril, half up the other. Continue rescue breathing, one breath every 5 seconds, while waiting for the Naloxone to take effect. Give a second dose of Naloxone if there is no response in 2-5 minutes. After Naloxone Continue to monitor their respirations and perform rescue breathing if respirations are below 10 breaths a minute. Stay with them until help arrives. The Naloxone may wear off and the victim could start to overdose again. What is Naloxone? Naloxone (also known as Narcan) is a medication that can reverse an overdose that is caused by an opioid drug. When administered during an overdose, Naloxone blocks the effects of opioids on the brain and restores breathing within two to eight minutes. Naloxone has been used safely by emergency medical support specialist for more than 40 years and has only one function: to reverse the effects of opioids on the brain and respiratory system in order to prevent . Naloxone has no potential for abuse. If Naloxone is given to a person who is not experiencing an opioid overdose, it is harmless. If naloxone is administered to a person who is dependent on opioids, it will produce withdrawal symptoms. Withdrawal, although uncomfortable, is not life- threatening. Naloxone does not reverse overdoses that are caused by non-opioid drugs, such as cocaine, benzodiazepines (e.g. Xanax, Klonopin and Valium), methamphetamines, or alcohol. What are some common opioids? Opioids include both heroin and prescription pain medications. Some common opioid pain medications include: hydrocodone (Lorcet and Vicodin), oxycodone (Percocet), long acting opioids (Oxycontin, MS Contin, Methadone), and patches (Fentanyl). Other brand name opioid pain medications include Opana ER, Avinza and Jud. How do I know if someone is overdosing? A person who is experiencing an overdose may have the following symptoms: breathing is slow and shallow (less than 10 breaths per minute) or has stopped; vomiting; face is pale and clammy; blue or grayish lips and fingernails; slow, erratic, or no pulse; choking or loud snoring noises; will not respond to shaking or sternum rub; skin may turn siu, blue, or ashen. An overdose is a medical emergency! Call immediately and begin first aid. What are the risk factors for an opioid overdose? Mixing Drugs Many overdoses occur when people mix heroin or prescription opioids with (more content not included)... [facility] ED Nursing Note States pain started a couple days ago, but became really intense in the last few hours. Pain is in the left chest pain, rates at 8/10. Sharp in nature, constant. Denies any radiation. Does endorse shortness of breath. Does also report nausea and vomiting. Pt states he is also in withdrawal from fentanyl for the last 3 days, requesting suboxone. Does endorse hot and cold chills, congestion, sneezing/ sniffles. Reports using about 1 gm per day. [facility] ED Provider Noteon ED Provider Note EMERGENCY DEPARTMENT ENCOUNTER Pt Name: Keke Pemberton Birthdate 1990 Date of evaluation: 08/22/2023 ED Provider: Stephy Glover MD CHIEF COMPLAINT Chief Complaint Patient presents with Chest Pain HISTORY OF PRESENT ILLNESS (Location/Symptom, Timing/Onset, Context/Setting, Quality, Duration, Modifying Factors, Severity) Note limiting factors. I wore appropriate PPE for the entirety of this encounter. HPI Keke Pemberton is a 33 y.o. who presents to the emergency department complaint of chest pain. He describes it as a sharp sensation that began a couple days ago and has been constant. States that it worsened this evening. Patient brought in by EMS and law enforcement after reportedly running eloping. Patient states that he feels like he is withdrawing from fentanyl and is requesting Suboxone. He states that his last use was 3 days ago. Endorses subjective chills, congestion, abdominal cramping. Denies any shortness of breath. Denies any known coronary artery disease. Nursing Notes were reviewed. Outside historians: EMS and Law enforcement REVIEW OF SYSTEMS Review of Systems Constitutional: Positive for chills. HENT: Positive for congestion. Respiratory: Negative for cough and shortness of breath. Cardiovascular: Positive for chest pain. Gastrointestinal: Negative for vomiting. Abdominal cramping Genitourinary: Negative for dysuria. Musculoskeletal: Negative for neck stiffness. Neurological: Negative for headaches. Pertinent positives and negatives as per HPI PAST MEDICAL HISTORY No past medical history on file. SURGICAL HISTORY No past surgical history on file. CURRENT MEDICATIONS Previous Medications No medications on file ALLERGIES Patient has no known allergies. FAMILY HISTORY No family history on file. SOCIAL HISTORY Social History Socioeconomic History Marital status: Unknown Tobacco Use Smoking status: Never Smokeless tobacco: Never Substance and Sexual Activity Alcohol use: Not Currently Drug use: Not Currently PHYSICAL EXAM ED Triage Vitals [08/22/232014] Temp Heart Rate Resp BP 37 ?C (98.6 ?F) (!) 119 13 112/80 SpO2 Temp Source Heart Rate Source Patient Position 97 % Oral Monitor Lying BP Location FiO2 (%) Left arm -- Physical Exam Vitals and nursing note reviewed. Constitutional: General: He is not in acute distress. Appearance: He is not ill-appearing. Comments: 33-year-old male HENT: Head: Normocephalic and atraumatic. Eyes: Extraocular Movements: Extraocular movements intact. Pupils: Pupils are equal, round, and reactive to light. Cardiovascular: Rate and Rhythm: Regular rhythm. Tachycardia present. Pulses: Normal pulses. Heart sounds: No murmur heard. Comments: 2+ symmetric radial pulses Pulmonary: Effort: Pulmonary effort is normal. Breath sounds: Normal breath sounds. Abdominal: Palpations: Abdomen is soft. Tenderness: There is no abdominal tenderness. Musculoskeletal: Cervical back: Normal range of motion. Right lower leg: No edema. Left lower leg: No edema. Neurological: Mental Status: He is alert. DIAGNOSTIC RESULTS RADIOLOGY (Per Emergency Physician): Interpretation per the Radiologist below, if available at the time of this note: XR chest 1 view Final Result No radiographic acute cardiopulmonary process. Report Dictated on Electronically Signed By: Malissa Noguera MD Electronically Signed Date/Time: 08/22/2023 9:00 PM EDT LABS: Labs Reviewed CBC WITH AUTO DIFFERENTIAL - Abnormal Result Value Auto WBC 9.3 RBC 4.73 Hemoglobin 14.0 Hematocrit 41.3 MCV 87.3 MCH 29.6 MCHC 33.9 RDW 13.2 Platelets 258 MPV 9.4 nRBC 0.0 Neutrophils Relative 61.1 Lymphocytes Relative 24.5 Monocytes Relative 11.4 Eosinophils Relative 2.3 Basophils Relative 0.3 Immature Grans % 0.4 Neutrophils Absolute 5.7 Lymphocytes Absolute 2.3 Monocytes Absolute 1.1 (*) Eosinophils Absolute 0.2 Basophils Absolute 0.0 Immature Grans Absolute 0.0 COMPREHENSIVE METABOLIC PANEL - Normal SODIUM 139 POTASSIUM 3.5 CHLORIDE 105 CARBON DIOXIDE 22 ANION GAP 12 UREA NITROGEN 17 CREATININE 0.91 GLUCOSE 96 CALCIUM 9.5 AST (SGOT) 45 ALT 44 ALKALINE PHOSPHATASE 73 ALBUMIN 4.4 BILIRUBIN, TOTAL 0.4 TOTAL PROTEIN 7.4 eGFR >90.0 TROPONIN I - Normal TROPONIN I <0.012 Narrative: Patients with high levels of Biotin oral intake (ie >5 mg/day) may have falsely decreased Troponin levels. D-DIMER,QUANTITATIVE - Normal D-DIMER, INNOVANCE 0.37 Narrative: Innovance D-Dimer values of <0.50 mg/L FEU can be used in combination with a pre-test probability model (e.g. Well's) to exclude pulmonary embolism (PE) disease, as well as an aid in the diagnosis of deep vein thrombosis (DVT). DRUGS OF ABUSE All other labs were within normal range or not returned as of this dictation. EMERGENCY DEPARTMENT COURSE an (more content not included)... Normal [facility] Fibrin D-dimer FEU (PPP) [Ma ss/Vol]on 08-22-2023 Interpretation and review of laboratory results Normal [facility] D-Dimer values of <0.50 mg/L FEU can be used in combination with a pre-test probability model (e.g. Well's) to exclude pulmonary embolism (PE) disease, as well as an aid in the diagnosis of deep vein thrombosis (DVT). [facility] Laboratory - Chemistry and C hemistry - challengeon 08-22-2023 Troponin I.cardiac [Mass/Vol] ng/mL NINF - 0.034 ng/mL [facility] Laboratory - Coagulationon 0 08-22-2023 Fibrin D-dimer FEU (PPP) [Mass/Vol] 0.37 mg/L [facility] mg/L [facility] No Panel Informationon 08-21 P [place] 80 degrees [facility] VT Interval 144 ms [facility] QRS [place] 90 degrees [facility] QRSD Interval 78 ms [facility] QT Interval 316 ms [facility] QTC Interval 426 ms [facility] T Wave [place] 66 degrees [facility] SINUS TACHYCARDIA BORDERLINE RIGHT AXIS DEVIATION Electronically Signed On 08-22-2023 21:06:26 EDT by Stephy Glover [facility] Brock MD - 08/22/2023 IMPRESSION: SINUS TACHYCARDIA BORDERLINE RIGHT AXIS DEVIATION Electronically Signed On 08-22-2023 21:06:26 EDT by Stephy Glover [facility] TROPONIN Ion 08-22-2023 Troponin I.cardiac [Mass/Vol] ng/mL Normal <0.034 [facility] Comment on above: Result Comment: ISELA Shahid COMMENTS: Patients with high levels of Biotin oral intake (ie >5 mg/day) may have falsely decreased Troponin levels. Performed By: #### L [id number], [id number] #### Correctional Supervising Cook: JENNA BOSTON ([phone]) [facility] (SWRL[facility] [address] Troponin I.cardiac [Mass/Vol ]on 08-22-2023 Interpretation and review of laboratory results Normal [facility] Patients with high levels of Biotin oral intake (ie >5 mg/day) may have falsely decreased Troponin levels. [facility] Vital signson 08-22-2023 Heart rate 109 /min bpm [facility] XR Chest Single viewon 08-21 No radiographic acute cardiopulmonary process. Report Dictated on Electronically Signed By: Malissa Noguera MD Electronically Signed Date/Time: 08/22/2023 9:00 PM EDT [facility] 1990 [id number] Exam Date/Time: 08/22/2023 20:59 Procedure: XR CHEST 1 VIEW Ordering Provider: GLOVER SCOTT Reason For Exam: Chest pain INDICATION: 33-year-old male; chest pain. VIEWS: Chest AP upright portable-one image COMPARISON: None. FINDINGS: The trachea is midline. The cardiac silhouette is normal. The costophrenic angles are sharp. There is no confluent consolidation. Cardiac monitoring wires and leads are present. [facility] Malissa Noguera MD - 08/22/2023 Patient Name: KEKE PEMBERTON : 1990 Exam Date/Time: 08/22/2023 20:59 Procedure: XR CHEST 1 VIEW Ordering Provider: GLOVER SCOTT Reason For Exam: Chest pain INDICATION: 33-year-old male; chest pain. VIEWS: Chest AP upright portable-one image COMPARISON: None. FINDINGS: The trachea is midline. The cardiac silhouette is normal. The costophrenic angles are sharp. There is no confluent consolidation. Cardiac monitoring wires and leads are present. IMPRESSION: No radiographic acute cardiopulmonary process. Report Dictated on Electronically Signed By: Malissa Noguera MD Electronically Signed Date/Time: 08/22/2023 9:00 PM EDT [facility]ensus Radiology Study observation (narrative) Priya He alth XR Chest Single viewOrdered By: Malissa Noguera on 08-22-2023 [employer] Work Phone: CASE MANAGEMon 04-29-2023 CASE MANAGEM HNO ID: [id number] Author: Lorena Galvan LPC Service: Social Work Author Type: Golf Cart Maker Type: Care Mgt Progress Note Filed: 04/29/2023 1:00 PM Note Text: BEHAVIORAL HEALTH SOCIAL WORK DISCHARGE NOTE SERVICE DATE: 04/29/2023 SERVICE TIME: 12:27 PM Discharge Information Row Name Admission (Current) from 04/25/2023 in [facility] 2B Psychiatry Follow-Up Appointment Psychiatrist Name Helga Patel APRN.CREW LEADER/CONTROL ROOM OPERATOR Agency [facility] Address / Phone [address] [place] [address] / / Appointment Date 05/21/23 Appointment Time 9:00AM Additional Instructions In-person, [facility] Psychiatry Follow-Up Appointment Provider Name Suboxone treatment/intake Agency [facility] Address [address] [place], [address], [place] [address] Phone Number // Appointment Date 05/13/23 Appointment Time 10:00AM Additional Instructions In-person, [place] [facility] Discharge Disposition Discharge Disposition Home Additional Discharge Information Additional Discharge Resources [facility] Crisis Hotline: Patient/Representati ve Agreeable With Discharge Plan: Yes FREEDOM OF CHOICE EXPLAINED? Yes. A list of appropriate referrals presented to/discussed with Patient on 04/25/2023 at 3:40PM. Patient/Representati ve Given/Explained Medicare Discharge Notice (IM letter): Not Applicable TRANSPORTATION ARRANGEMENTS: Pt uncle to provide transport. PRESCRIPTIONS FILLED PRIOR TO DISCHARGE: Yes, faxed to outside pharmacy: [facility] [place]: [address] [place] [id number] ADDITIONAL NOTES: SW met with pt to review f/u plans, pt in agreement with plan. Pt had been previously seen at [facility], will re-engage for services upon discharge. Pt denied having any further needs or questions at this time. SIGNATURE: Lorena Galvan LPC PATIENT NAME: Keke Pemberton DATE: April 29, 2023 TIME: 12:27 PM [facility] 04-29-2023 [facility] HNO ID: [id number] Author: Damaris Johnston MD Service: Psychiatry Author Type: Resident Type: Discharge Summary Filed: 04/29/2023 10:25 AM Note Text: Attestation signed by Clara Karimi DO at 04/29/2023 2:40 PM STAFF ADDENDUM: I have seen the patient and reviewed the assessment and DC Summary obtained and documented by the resident, Dr. Johnston and I personally participated in the franklin components. I have discussed the case and management of the patient's care. The following comments revise or confirm relevant franklin components of the note. Patient is eating and sleeping well. Pt denied SI/HI/AVH. No opioid cravings. Finds Suboxone very helpful and will continue at 16 mg per daily. No cravings at present. Motivated for sobriety. Tolerating medications well. No access to illicit drugs. No access to firearms. Plan: Suboxone 16 mg daily Bupropion XL 150 mg AM . Mat need to increase to 300 mg given carbamezepine can reduce serum concentration . RX for Narcan given Follow up with ID outpatient Follow with MAT provider PDMP website checked and validated. All prescriptions have been APPROPRIATELY filled. No suspicious activity was identified. 04/29/2023 by Clara Karimi DO Greater than 30 minutes was spent in DC planning DISCHARGE SUMMARY BEHAVIORAL HEALTH PATIENT NAME: Keke Pemberton ADMISSION DATE: 04/25/2023 DISCHARGE DATE: 04/29/2023 ATTENDING PHYSICIAN: Clara Karimi DO Code Status: Full Code Highest Readmission Risk Score: 22 The 30 day readmissions risk score is derived from an internally validated risk model which evaluates patient level characteristics, utilization history, medication orders and lab results up until the day of discharge. Patients with a score of 40 or above are considered highest risk for readmission. Specific patient level drivers will be listed at the bottom of the summary. REASON FOR HOSPITALIZATION: Risk of physical harm to self DISCHARGE DIAGNOSIS: Opioid withdrawals with severe use d/o Tobacco use disorder Polysub misuse Unspecified mood and anxiety disorder Hx of ADHD Cluster B personality traits GAF: -60-51 Moderate symptoms or moderate difficulty in social, occupational or school functioning. OPERATIONS DURING HOSPITALIZATION: None PROCEDURES DURING HOSPITALIZATION: No procedures performed HOSPITAL COURSE: 32 year old male with PPH of bipolar disorder, ADHD, anxiety, acute stress reaction, frequent hospitalizations for swallowing foreign objects, PMH of abscess of penis who presented to [facility] ED by EMS on 04/24/2023 for SI. Recently admitted at [facility] for intentional ingestion of battery and paperclips. On assessment, patient exhibited / reported symptoms concerning for opioid withdrawal, including diaphoresis, dilated pupils. Unclear whether patient is presenting for true SI 2./2 acute stress reaction to witnessing a relative's passing or if there is secondary gain, as patient was minimally engaged in interview. Symptoms likely exacerbated by alcohol, opioid, and cocaine use. Patient was started on carbazmezepine 200 mg twice a day and bupropion xl 150 mg every AM. Suboxone was resumed and discharged on 16 mg per day for opoid use disorder Patient was seen by infectious disease for hepatitis and will be following up as an outpatient. CONSULTING TEAMS DURING HOSPITALIZATION: Treatment Team: Attending Provider: Clara Karimi DO Consulting: Talita Deleon MD Consulting: Celeste Paul MD PATIENT CONDITION AT DISCHARGE: Stable DISCHARGE DISPOSITION: Home with Self Care COMPLICATIONS: None At this time the patient has maximized his benefit from hospitalization.. The patient denies suicidal or homicidal ideation, intent or plan and is safe for discharge. The patient voices a readiness to transition back to his home setting and has agreed to our follow-up recommendations including medication compliance. SUBJECTIVE: Patient states that he is feeling well this morning. Slept well and appetite is coming back.Had a bowel movement. Patient denies any suicidal ideation, intent or plan. Denies HI or AVH. Patient denies any access to firearm. Denies any withdrawals today and states that his stuff nose is possibly due to cold. Patient is thankful for receiving Suboxone script and an outpatient provider for refills. Instructed to f/u with outpatient psychiatrist about Wellbutrin dosing due to Tegretol. OBJECTIVE: Transitions of Care Critical Issues: LABS AND PROCEDURES PENDING AT DISCHARGE: No pending results. Any PRN's required for agitation or anxiety since last encounter: No New problems on the unit since the last encounter: No Any new medication reactions since the last encounter: No BP 104 (more content not included)... [facility] NURSING PROGon 04-29-2023 NURSING PROG HNO ID: [id number] Author: Alea Hong RN Service: Nursing Author Type: Registered Nurse Type: Nursing Progress Note Filed: 04/29/2023 1:59 PM Note Text: Discharge Note Patient's belongings were returned. Discharge paperwork was reviewed with and signed by patient. Teach back method was utilized by this medical technical writer when going over discharge instructions. Patient verbalizing intent to comply with outpatient treatment recommendations, including medication regimen. Left unit ambulatory in stable condition accompanied by staff member. Patient was picked up by family and discharged to home at 1355. [facility] NURSING PROG HNO ID: [id number] Author: Alea Hong RN Service: Nursing Author Type: Registered Nurse Type: Nursing Progress Note Filed: 04/29/2023 12:54 PM Note Text: Nursing Progress Note Patient Name: Keke Pemberton Patient Location: / Daily Note: Patient observed to be awake OOR having his vitals obtained when care assumed. Came down for vitals/breakfast and ate with peers. He presents as well groomed, wearing his personal clothing. Pleasant/friendly on approach. Reported sleeping well last night and verbalizing mood improvement since being admitted. Patient denies SI/HI/AVH. No c/o pain. Medication compliant. Verbalizing readiness for discharge; aware he must first speak with Dr. Karimi regarding matter. Patient was seen by Dr. Karimi during rounds; discharge order entered in [employer]. He was also medically cleared for discharge per Dr. Deleon. Tentative plan is for patient to be picked up by a family member per . This note was completed by: ROD Garcia, RN-[facility] CONSULTon 04-28-2023 CONSULT HNO ID: [id number] Author: Lyssa Craven MD Service: Infectious Disease Author Type: Physician Type: Consults Filed: 04/28/2023 2:26 PM Note Text: Infectious Disease Consult PATIENT NAME: Keke Pemberton SERVICE DATE: 04/28/2023 SERVICE TIME: 2:02 PM SIGNATURE: Lyssa Craven MD PRIMARY CARE PHYSICIAN: No primary care provider on file. REASON FOR CONSULT: Positive hepatitis serology REQUESTING PHYSICIAN: Dr. Karimi HPI 32-year-old male who I was asked to evaluate for positive hepatitis serology. The patient has positive hepatitis C antibody and PCR. Also found to have positive hepatitis B surface antibody was negative antigen. HIV is negative. PAST MEDICAL HISTORY: PAST MEDICAL HISTORY Diagnosis Date ADHD (attention deficit hyperactivity disorder) PAST SURGICAL HISTORY: PAST SURGICAL HISTORY Procedure Laterality Date NONE FAMILY HISTORY: FAMILY HISTORY Problem Relation Age of Onset Cancer Mother Heart Father SOCIAL HISTORY: Social History Tobacco Use Smoking status: Every Day Packs/day: .5 Types: Cigarettes Smokeless tobacco: Former Vaping Use Vaping Use: Never used Substance Use Topics Alcohol use: Not Currently Comment: occassional Drug use: Yes Types: Marijuana Comment: Hx of IV CURRENT ALLERGIES: Allergies As of Date: 04/25/2023 (No Known Allergies) Fully Assessed 04/25/2023 MEDICATIONS: Prior to Admission Medications: buprenorphine-naloxo ne (SUBOXONE) 8-2 mg film, Dissolve 1 Film under the tongue once daily for 14 days., Disp: 14 Film, Rfl: 0, 04/24/2023 lithium carbonate ER 300 mg CR tablet, Take 1 tablet by mouth daily at bedtime., Disp: 30 tablet, Rfl: [address] (PROTONIX) 40 mg tablet, Take 1 tablet by mouth DAILY (6 AM)., Disp: 30 tablet, Rfl: 0 traZODone (DESYREL) 50 mg tablet, Take 50 mg by mouth daily at bedtime. 0.5-2 tablets at bedtime as needed, Disp: , Rfl: , Unknown Current Facility-Administere d Medications Medication Dose Route Frequency LORazepam 2 mg (ATIVAN) 2 mg ORAL q 4 H PRN Or LORazepam 2 mg injection (ATIVAN) 2 mg INTRAMUSCULAR q 4 H PRN haloperidol 5 mg tab(s) (HALDOL) 5 mg ORAL q 4 H PRN Or haloperidol lactate 5 mg short-acting injection (HALDOL) 5 mg INTRAMUSCULAR q 4 H PRN traZODone 50 mg tab(s) (DESYREL) 50 mg ORAL AT BEDTIME PRN hydrOXYzine HCl 50 mg tab(s) (ATARAX) 50 mg ORAL q 4 H PRN acetaminophen 650 mg tab(s) (TYLENOL) 650 mg ORAL q 6 H PRN aluminum-magnesium hydroxide-simethicon e 200-200-20 mg/5 mL 30 mL 30 mL ORAL q 4 H PRN magnesium hydroxide 400 mg/5 mL 30 mL (MOM) 30 mL ORAL DAILY PRN diphenhydrAMINE 50 mg injection (BENADRYL) 50 mg INTRAMUSCULAR q 30 MIN PRN nicotine polacrilex 2 mg gum (NICORETTE) 2 mg ORAL q 2 H PRN LORazepam 1 mg tab(s) (ATIVAN) 1 mg ORAL q 2 H PRN Or LORazepam 2 mg (ATIVAN) 2 mg ORAL q 2 H PRN Or LORazepam 2 mg (ATIVAN) 2 mg ORAL q 1 H PRN dicyclomine 10 mg cap(s) (BENTYL) 10 mg ORAL q 6 H PRN loperamide 2 mg cap(s) (IMODIUM) 2 mg ORAL PRN ondansetron 4 mg tab(s) (ZOFRAN) 4 mg ORAL q 6 H PRN Or ondansetron (PF) 4 mg injection (ZOFRAN) 4 mg INTRAVENOUS q 6 H PRN naloxone 0.4 mg injection (NARCAN) 0.4 mg INTRAMUSCULAR PRN buprenorphine-nalOXo ne SL 8-2 mg 1 tablet (SUBOXONE) 1 tablet SUBLINGUAL q 1 H PRN Patient Home Medications (stored in pharmacy) OTHER DAILY carBAMazepine 200 mg tab(s) (TEGretol) 200 mg ORAL BID nicotine 14 mg/24 hr 1 Patch (NICODERM) 1 Patch TRANSDERMAL DAILY And nicotine -- REMOVE patch OTHER DAILY And nicotine - verify patch OTHER q 8 H melatonin 3 mg tab(s) 3 mg ORAL DAILY (8 PM) oxymetazoline 0.05 % 1 [place] (GENASAL) 1 [place] EACH NOSTRIL BID PRN buPROPion XL 150 mg tab(s) (WELLBUTRIN XL) 150 mg ORAL DAILY COMPLETE REVIEW OF SYSTEMS: Review of systems shows no findings other than what is described in the narrative above. Specifically, the patient has had no significant changes in eyesight, no sore throat, no post nasal drip, no ear pains. There has been no cough or chest pains, pleuritic or otherwise. There has been no abdominal pain, no nausea or vomiting, nor diarrhea. There has been no dysuria, urinary frequency, or flank pain. There is nothing unusual in the joints or muscles, or any skin rashes or skin swellings or abscesses noted. All other systems were reviewed and are negative. PHYSICAL EXAM: Patient Vitals for the past 24 hrs: BP Temp Temp src Pulse Resp SpO2 04/28/23 0958 99/65 36.4 ?C (97.5 ?F) Oral 81 16 100 % 04/27/23 2031 109/70 -- -- 99 -- 100 % 04/27/23 1614 139/76 36.8 ?C (98.2 ?F) -- 98 -- 99 % 04/27/23 1420 115/59 36.7 ?C (98 ?F) Oral 98 16 100 % Body mass index is 20.92 kg/m?. Gen: NAD ENMT: oral mucosa moist Neck: symmetric, no mass Cardiovascular: RRR Respiratory: No distress GI: abd soft, nontender, nondistended musculoskeletal: no joint swelling Extremities: no leg edema Neurologic: grossly intact Skin: Warm and dry. psy (more content not included)... [facility] NURSING PROGon 04-28-2023 NURSING PROG HNO ID: [id number] Author: Merline Salmon, RN Service: Nursing Author Type: Registered Nurse Type: Nursing Progress Note Filed: 04/29/2023 2:03 AM Note Text: Nursing Progress Note Patient Name: Keke Pemberton Patient Location: [facility]/ 1900: Assumed care 2108: Patient pleasant but presents with depressed affect. Shares he is hopeful for discharge tomorrow. COWS score 3. Denies SI/HI/AVH. Denies any pain. Accepts scheduled medications per MAR as well as PRN Trazodone. Patient requests snacks which are provided, patient stated he's been super hungry all the time because of the medications. Patient encouraged to continue to make any further needs known throughout the shift. This note was completed by: Merline Salmon [facility] NURSING PROG HNO ID: [id number] Author: Cheryl Mcgraw, DEMARCO Service: Nursing Author Type: Registered Nurse Type: Nursing Progress Note Filed: 04/28/2023 6:50 PM Note Text: Other: 7656-0589 shift 1530: pt in room awake, denies any current needs 1630: pt requests prn suboxone, is visibly restless, COWS score 10 1636: PRN Suboxone given per MAR, and PRN genasal spay given per pt request for nasal congestion. Pt denies SI/HI/AVH 1725: Pt in hallway, is discharge focused and states I did check myself in you know, so we'll see Emotional support given. PT denies any other needs at this time 1848: COWS score at 5. Pt denies any current needs at this time, States he will speak to doctor and social science instructor tomorrow about discharge. Pt safety maintained . [facility] NURSING PROG HNO ID: [id number] Author: Alea Hong RN Service: Nursing Author Type: Registered Nurse Type: Nursing Progress Note Filed: 04/28/2023 3:05 PM Note Text: Nursing Progress Note Patient Name: Keke Pemberton [facility] Daily Note: Patient observed to be asleep/resting quietly in room when care assumed. Briefly came down to day area for vitals/breakfast and ate with peers before retreating back to bed. He presents as disheveled, wearing his personal clothing. No issues with sleep reported overnight. Patient denies SI/HI/AVH. No c/o pain. Medication compliant. Napped throughout majority of AM and into early afternoon. 1412-Patient given PRN Suboxone as ordered for COWS of 9. This note was completed by: ROD Garcia, RN-[facility] NURSING PROGon 04-27-2023 NURSING PROG HNO ID: [id number] Author: Merline Salmon RN Service: Nursing Author Type: Registered Nurse Type: Nursing Progress Note Filed: 04/28/2023 6:41 AM Note Text: Nursing Progress Note Patient Name: Keke Pemberton [facility] 1900: Assumed care 2035: Patient requests bedtime medications, presents with a depressed affect, but is pleasant on interactions with staff. Patient denies SI/HI/AVH/pain. States he is feeling better than earlier today. States he noticed that he hasn't had his nicotine patch or Nicorette gum today, mentions it's nasty for you anyway. Administered scheduled medication and PRN Trazodone per request. Patient states no further needs at this time and is encouraged to reach out to staff if anything arises. 0600: Pt slept approximately 8 hours. This note was completed by: Merline Salmon [facility] NURSING PROG HNO ID: [id number] Author: Kori Fontanez RN Service: Nursing Author Type: Registered Nurse Type: Nursing Progress Note Filed: 04/27/2023 4:55 PM Note Text: Nursing Progress Note Patient Name: Keke Pemberton Patient Location: /- Daily Note: 8922-2983 shift 0700 Pt. care resumed.. Pt. was awake and eating breakfast . Pt. had no c/o distress or w/d symptoms at that time. Pt. took scheduled medications . Pt. did not request any suboxone sl tablet. Pt. 's VS. and cows score minimal . Pt. denied any self harm thought or unable to control any impulses to swallow inanimate objects. Pt. safety and monitoring continued. 1439 Pt. was given suboxone SL 1 tablet for physical symptoms of W/D symptoms and COWS =10. Pt. was also given [employer] phone number for a complaint he wants to make as his 'new jogging pants got bleach on them after staff was cleaning the chairs with bleach wipes in the day area and pt. was not told to not sit on chair until drying time took place. GARY notified for a medication to relieve post nasal drip and congestion. Genasal nasal spray ordered prn 2 times daily. 1529 Genasal nasal spray given to patient. 1621 Pt. received suboxone SL 1 tablet for COWS > 8 This note was completed by: Kori Fontanez [facility] NURSING PROGon 04-26-2023 NURSING PROG HNO ID: [id number] Author: Merline Salmon RN Service: Nursing Author Type: Registered Nurse Type: Nursing Progress Note Filed: 04/27/2023 6:02 AM Note Text: Nursing Progress Note Patient Name: Keke Pemberton Patient Location: 1900: Assumed care 2020: Patient is pleasant and conversational upon assessment. Patient states he is feeling better than he did earlier today, COWS score is currently 3. Messaged GARY regarding Q1 COWS order, new order placed for scoring 4x/day. Patient shares that he dislikes taking Suboxone, stating it's nasty and replacing one addiction with another. Support provided to patient and encouraged pt to reach out to staff if he feels his w/d symptoms worsen. Patient defers HS medications until later this evening, stating he will probably request Trazodone for sleep as well. 2138: Patient accepts scheduled Tegratol but defers melatonin, stating he may take it later. 2314: Patient declines melatonin and states he is going to try to sleep without any sleep aid, that he may request Trazodone if he has trouble sleeping. 0600: Patient slept approximately 7 hours. This note was completed by: Merline Salmon [facility] NURSING PROG HNO ID: [id number] Author: Kori Fontanez, RN Service: Nursing Author Type: Registered Nurse Type: Nursing Progress Note Filed: 04/26/2023 6:54 PM Note Text: Nursing Progress Note Patient Name: Keke Pemberton Patient Location: Daily Note: 7854-4974 shift Pt. care resumed at 0700. Pt. was exhibiting opiate w/d symptoms COW score =9. Pt. was given suboxone SL 8-2 mg 1 tablet. Pt. was otherwise withdrawn to his room , refusing to engage in any socializing with peers nor attend group activities. Pt. has remain free from any self injurious behavior of swallowing inanimate objects. Pt. safety and monitoring continued. 1519 Dr. Vinayak Paul consulted for pt. hx of hepatitis B and C . Pt. also reported that he had no seizure history . Pt. did not know the rationale for being prescribed Tegretol medication . 1532 Pt. given suboxone 1 tablet SL for COWs score and physical complaints of w/d symptoms and elevated HR. 1830 Pt. had a c/o heartburn , pt given mylanta 30 ml po , pt given suboxone 1 tablet sl for COW score =10. 1850 Pt. 's uncle came to visit This note was completed by: Kori Fontanez [facility] 25(OH)D3 [facility] 2022 25-hydroxyvitamin D3 [Mass/Vol] 31.0 ng/mL Normal 31.0-80.0 [facility] Comment on above: Order Comment: Speci men Type: BLOOD SPECIMEN Ordering Facility: [facility] Address: [address] [place] [address] Performed By: #### 5 195-3, 42416-2, 42655-8, 31252-7 #### [facility] CLIA [id number] [address] [place] [address] [place] ALLIED HEALTHon 04-25-2023 ALLIED HEALTH HNO ID: [id number] Author: Ana Shannon Music Therapist Service: Music Therapy Author Type: Therapist Type: Allied Health Filed: 04/25/2023 10:55 AM Note Text: THERAPEUTIC PROGRAMMING ASSESSMENT SERVICE DATE: 04/25/2023 SERVICE TIME: 10:49 AM RECOMMENDATIONS: Cognitive Communication Skills Community Resources [employer] Expressive Therapy Leisure Education Leisure Skills Relaxation Self Awareness Socialization Stress Management ACTIVITIES OF DAILY LIVING (Difficulty in the following ADL areas): all ADL's, no difficulties GENERAL OBSERVATIONS: Affect: Bright Appearance: Unkempt Communication: Responds when approached Minimizes problem areas Mood: Euthymic ASSESSMENT COMPLETED: Yes: STRESS MANAGEMENT SKILLS: Identified Stressors: Pt was assessed at bedside. Pt has bright affect, was euthymic, and kept his eyes closed for the duration of assessment. When asked about current stressors, pt stated not today. When asked about stressors in the days leading up to admission, pt stated nope, I'm fine. Per chart, Pt reports he had a loved one pass away yesterday and it has not been sitting right with him and he does not feel comfortable. He reports he witnessed his aunt have a heart attack and he has been having issues with falling and saying asleep, flashbacks, panic attacks, lack of appetite, lack of energy,it has been hard for him to get out of bed and he reports he has thought about self harm. Effective Coping Strategies Used: Pt did not identify coping strategies at this time. Ineffective Coping Strategies Used: Per chart, pt endorses monthly use of cocaine and recently abused percocet. Describe what you do on an average day: Pt unable to identify at this time. INTERESTS: Current: Patient unable to identify Future: Patient unable to identify No Interest: Patient unable to identify Past Interest: Patient unable to identify PATIENT'S GOALS FOR THERAPEUTIC PROGRAMMING: Build more confidence in abilities Channel energy/feelings into constructive outlets Explore inner resources/self-aware ness Express self better (improve communication skills) Find ways to relax Improve coping skills without using drugs or alcohol Improve thinking skills (memory, attention) while doing things Improve use of leisure time Learn to set realistic goals Spend more time with other people Utilize art materials SIGNATURE: Ana Shannon Music Therapist PATIENT NAME: Keke Pemberton DATE: April 25, 2023 TIME: 10:48 AM PAGER/CONTACT #: [facility] BLOOD TB SCREENon 04-25-2023 M. tuberculosis tuberculin stim IFN-g Ql (Bld) Negative [facility] Comment on above: Order Comment: Speci men Type: BLOOD SPECIMEN Ordering Facility: [facility] Address: [address] [place] [address] Performed By: #### 5 195-3, 61256-9, 52011-3, 62120-0 #### [facility] CLIA [id number] [address] [facility] [place] [address] [place] MITOGEN MINUS NIL >9.94 Normal >=0.50 [facility] Comment on above: Order Comment: Speci men Type: BLOOD SPECIMEN Ordering Facility: [facility] Address: [address] [place] [address] Performed By: #### 5 195-3, 54183-5, 24813-3, 04413-2 #### [facility] CLIA [id number] [address] [place] [address] [place] TB GAMMA INTERPRETATION Infection with M . tuberculosis complex is unlikely. If latent tuberculosis infection is highly suspected, a negative result does not rule out the infection. Specimens from immunocompromised patients and those <5 years of age may show false negative results. In case of a contact investigation, please repeat 8-12 weeks after a known exposure. [facility] Comment on above: Order Comment: Arianei men Type: BLOOD SPECIMEN Ordering Facility: [facility] Address: [address] [place] [address] Performed By: #### 5 195-3, 88520-7, 16130-1, 23735-2 #### [facility] CLIA [id number] [address] [place] [address] [place] TB NIL 0.06 IU/mL Normal <=8.00 [facility] Comment on above: Order Comment: Speci men Type: BLOOD SPECIMEN Ordering Facility: [facility] Address: [address] [place] [address] Performed By: #### 5 195-3, 26042-1, 70624-6, 31447-4 #### [facility] CLIA [id number] [address] [place] [address] [place] TB1 AG MINUS NIL 0.16 IU/mL Normal <0.35 [facility] Comment on above: Order Comment: Speci men Type: BLOOD SPECIMEN Ordering Facility: [facility] Address: [address] [place] [address] Performed By: #### 5 195-3, 28426-6, 32055-8, 73250-4 #### [facility] CLIA [id number] [address] [place] [address] [place] TB2 AG MINUS NIL 0.17 IU/mL Normal <0.35 [facility] Comment on above: Order Comment: Speci men Type: BLOOD SPECIMEN Ordering Facility: [facility] Address: [address] [place] [address] Performed By: #### 5 195-3, 70890-0, 31019-1, 95972-1 #### [facility] CLIA [id number] [address] [place] [address] [place] Basic metabolic 2000 panelon 04-25-2023 Anion gap [Moles/Vol] 11 mmol/L Normal 9-18 [facility] Comment on above: Order Comment: Speci men Type: BLOOD SPECIMEN Ordering Facility: [facility] Address: [address] [place] [address] Performed By: #### 5 195-3, 10157-9, 38224-1, 11339-4 #### [facility] CLIA [id number] [address] [place] [address] [place] Calcium [Mass/Vol] 9.3 mg/dL Normal 8.5-10.2 [facility] Comment on above: Order Comment: Speci men Type: BLOOD SPECIMEN Ordering Facility: [facility] Address: [address] [place] [address] Performed By: #### 5 195-3, 00521-0, 69843-2, 20333-8 #### [facility] CLIA [id number] [address] [place] [address] [place] Chloride [Moles/Vol] 103 mmol/L Normal 97-105 [facility] Comment on above: Order Comment: Speci men Type: BLOOD SPECIMEN Ordering Facility: [facility] Address: [address] [place] [address] Performed By: #### 5 195-3, 33472-5, 49602-0, 65565-1 #### [facility] CLIA [id number] [address] [place] [address] [place] CO2 [Moles/Vol] 25 mmol/L Normal 22-30 [facility] Comment on above: Order Comment: Yeyo velasquez Type: BLOOD SPECIMEN Ordering Facility: [facility] Address: [address] [place] [address] Performed By: #### 5 195-3, 21739-1, 91067-8, 44109-4 #### [facility] CLIA [id number] [address] [place] [address] [place] Creatinine [Mass/Vol] 0.72 mg/dL Low 0.73-1.22 [facility] Comment on above: Order Comment: Yeyo velasquez Type: BLOOD SPECIMEN Ordering Facility: [facility] Address: [address] [place] [address] Performed By: #### 5 195-3, 59251-8, 45407-8, 21573-3 #### [facility] CLIA [id number] [facility] [place] [address] [place] Creatinine and Glomerular filtration rate.predicted panel (S/P/Bld) 124 mL/min/1.73m??? Normal >=60 [facility] Comment on above: Order Comment: Yeyo velasquez Type: BLOOD SPECIMEN Ordering Facility: [facility] Address: [address] [place] [address] Result Comment: Erica mated Glomerular Filtration Rate (eGFR) is calculated using the 2020 CKD-EPI creatinine equation. This equation utilizes serum creatinine, sex, and age as parameters. The creatinine assay has traceable calibration to isotope dilution-mass spectrometry. Refer to KDIGO guidelines for clinical interpretation. In patients with unstable renal function, e.g. those with acute kidney injury, the eGFR may not accurately reflect actual GFR. Performed By: #### 5 195-3, 64332-1, 12388-4, 47488-5 #### [facility] CLIA [id number] [address] [place] [id number] [place] Glucose [Mass/Vol] 107 mg/dL High 74-99 [facility] Comment on above: Order Comment: Yeyo velasquez Type: BLOOD SPECIMEN Ordering Facility: [facility] Address: [address] [place] [address] Result Comment: The [place] Diabetes Association (ADA) provides guidance for cutoff values for fasting glucose and random glucose. The ADA defines fasting as no caloric intake for at least 8 hours. Fasting plasma glucose results between 100 to 125 mg/dL indicate increased risk for diabetes (prediabetes). Fasting plasma glucose results greater than or equal to 126 mg/dL meet the criteria for diagnosis of diabetes. In the absence of unequivocal hyperglycemia, results should be confirmed by repeat testing. In a patient with classic symptoms of hyperglycemia or hyperglycemic crisis, random plasma glucose results greater than or equal to 200 mg/dL meet the criteria for diagnosis of diabetes. Reference: Standards of Medical Care in Diabetes 2016, [place] Diabetes Association. Diabetes Care. 2016.39(Suppl 1). Performed By: #### 5 195-3, 87314-3, 11736-5, 21996-9 #### [facility] CLIA [id number] [address] [place] [address] [place] Potassium [Moles/Vol] 4.2 mmol/L Normal 3.7-5.1 [facility] Comment on above: Order Comment: Yeyo velasquez Type: BLOOD SPECIMEN Ordering Facility: [facility] Address: [address] [place] [address] Performed By: #### 5 195-3, 46187-3, 94608-7, 42340-1 #### [facility] CLIA [id number] [address] [place] [address] [place] Sodium [Moles/Vol] 139 mmol/L Normal 136-144 [facility] Comment on above: Order Comment: Yeyo velasquez Type: BLOOD SPECIMEN Ordering Facility: [facility] Address: [address] [place] [address] Performed By: #### 5 195-3, 33871-4, 44672-7, 99860-9 #### [facility] CLIA [id number] [address] [place] [address] [place] Urea nitrogen [Mass/Vol] 13 mg/dL Normal 9-24 [facility] Comment on above: Order Comment: Speci men Type: BLOOD SPECIMEN Ordering Facility: [facility] Address: [address] [place] [address] Performed By: #### 5 195-3, 61557-0, 75026-4, 32149-1 #### [facility] CLIA [id number] [address] [facility] [place] [address] [place] CASE MGT INIT SOPHIAon 2022 CASE MGT INIT SOPHIA HNO ID: [id number] Author: Boubacar Alba LSW Service: Social Work Author Type: Golf Cart Maker Type: Care Mgt Initial Assessment Filed: 04/25/2023 3:40 PM Note Text: BEHAVIORAL HEALTH SOCIAL WORK/CARE MANAGEMENT ASSESSMENT AND DISCHARGE PLAN SERVICE DATE: 04/25/2023 SERVICE TIME: 10:32 AM Reason for Admission: Per intake note: Keke Pemberton is a 32 year old male brought in to [facility] from Home by ambulance for suicidal ideations. Pt was assessed telephonically. Pt presents with a history of substance use disorder, bipolar affective disorder, and swallowing foreign bodies. PT was AANDOx4, pt was calm and cooperative, pt was appropriate during assessment, pt was linear and organized, pt reports his mood as scared, pts insight and judgement needs improvement. Pt denies SI, HI, AVH, self- harm and delusions. Pt reports he had a loved one pass away yesterday and it has not been sitting right with him and he does not feel comfortable. He reports he witnessed his aunt have a heart attack and he has been having issues with falling and saying asleep, flashbacks, panic attacks, lack of appetite, lack of energy,it has been hard for him to get out of bed and he reports he has thought about self harm. He is not sure that he won't act on his thoughts due to the way that he is feeling he just does not know. He reports he does not feel safe with himself. He reports he does not have plan, suicidal thoughts have gone through his head but he is not having them now. Pt reports he has attempted suicide in the past does not recall when nor what he did just that he woke up at [facility]. Pt reports he was previously at [facility] and he did not find them to be helpful and he reports he was admitted 8 months to a year ago and he cut his wrist a little. Pt does not currently have any outpatient providers and actively taking psychiatric medications. Pt reports there are guns in the home and he could probably get access to them. Pt reports he lives with his uncle and his uncle has not been there so he has been alone with his thoughts. Pt reports he is his own guardian. Pt reports his suicidal thoughts scare him and he request an inpatient psychiatric admission. Legal Status: Voluntary Important Contacts: No contacts provided Does the patient/representati ve consent to contact with the above at this time? Not Applicable Information obtained from: Chart Patient Referred by: Medical Team Living Arrangements Prior to Admission: Relative's Home Prior to Admission, Patient was Living with: Uncle Marital Status: Single Children (including quality of relationship): 2, ages 8 and 10. Reports good relationships Sexual Orientation: Heterosexual SOCIAL HISTORY Keke Pemberton was born and raised in [place], [place] by his biological parents. His childhood is described as good. He has 3 sisters and patient's father is . He has good relationship with family members. Trauma and Abuse History (emotional, mental, physical, sexual, verbal, neglect,exploitation , other): No, Patient/Representati ve Denies Education History: Some High School Support System: Family: Uncle Friend(s) Employment Status: Unknown Financial Resources: Unknown Food Insecurity: Unknown (12/26/2022) Hunger Vital Sign Worried About Running Out of Food in the Last Year: Patient refused Ran Out of Food in the Last Year: Patient refused Financial Resource Strain: Unknown (12/26/2022) Overall Financial Resource Strain (CARDIA) Difficulty of Paying Living Expenses: Patient refused Transportation Needs: Unknown (12/26/2022) PRAPARE - Transportation Lack of Transportation (Medical): Patient refused Lack of Transportation (Non-Medical): Patient refused Health Insurance: PRIMARY: [employer] (Medicaid) Status (including history of combat experience): None Legal History: Arrests Incarcerations - Previous Charges: drug related charges and criminal damaging Gnosticist/Spiritualit y: Unknown PSYCHIATRIC HISTORY: - Psychiatrist: None Violence Risk to Self: In the past 6 months have you had thoughts of killing yourself or suicidal ideations? Yes, prior to admission In the past 6 months, have you made plans/preparations and/or had an intent to act upon these suicidal ideas/thoughts? No Has Patient Been Hospitalized Previously for Psychiatric Reasons? Yes, but there was no admission within the past 30 days. Substance Use and Treatment History: Amphetamines Cocaine Marijuana Opiates - Lab Results Positive for amphetamines and opiates Do special considerations/accom modations need to be made (i.e. preferred language, literacy, gender identity, physical disability such as deaf or blind, etc)? No, Patient/Representati ve Denies Are there practices or beliefs that may affect or influence treatment? No, Patient/Representati ve Denies Patient Strengths/Protective Fa (more content not included)... Normal [facility] CBC W Auto Differential pane l (Bld)on 04-25-2023 Basophils (Bld) [#/Vol] 0.03 10*3/uL Normal <0.11 [facility] Comment on above: Order Comment: Speci men Type: BLOOD SPECIMEN Ordering Facility: [facility] Address: [address] [place] [address] Performed By: #### 5 195-3, 67689-9, 04239-3, 14300-5 #### [facility] CLIA [id number] [address] [place] [address] [place] Basophils/100 WBC (Bld) 0.4 % Normal L [facility] Comment on above: Order Comment: Speci men Type: BLOOD SPECIMEN Ordering Facility: [facility] Address: [address] [place] [address] Performed By: #### 5 195-3, 10140-2, 86851-1, 54913-0 #### [facility] CLIA [id number] [address] [place] [address] [place] Differential cell count method Nom (Bld) Auto Normal [facility] Comment on above: Order Comment: Speci men Type: BLOOD SPECIMEN Ordering Facility: [facility] Address: [address] [place] [address] Performed By: #### 5 195-3, 14842-3, 78178-5, 85516-5 #### [facility] CLIA [id number] [address] [place] [address] [place] Eosinophils (Bld) [#/Vol] 0.18 10*3/uL Normal <0.46 [facility] Comment on above: Order Comment: Speci men Type: BLOOD SPECIMEN Ordering Facility: [facility] Address: [address] [place] [address] Performed By: #### 5 195-3, 29537-4, 73211-7, 35570-3 #### [facility] CLIA [id number] [address] [place] [address] [place] Eosinophils/100 WBC (Bld) 2.2 % Normal [facility] Comment on above: Order Comment: Speci men Type: BLOOD SPECIMEN Ordering Facility: [facility] Address: [address] [place] [address] Performed By: #### 5 195-3, 30392-6, 29544-5, 72521-9 #### [facility] CLIA [id number] [address] [place] [address] [place] Erythrocyte distribution width (RBC) [Ratio] 11.6 % Normal 11.5-15.0 [facility] Comment on above: Order Comment: Speci men Type: BLOOD SPECIMEN Ordering Facility: [facility] Address: [address] [place] [address] Performed By: #### 5 195-3, 81215-2, 32615-2, 95042-6 #### [facility] CLIA [id number] [address] [place] [address] [place] Hematocrit (Bld) [Volume fraction] 44.4 % Normal 39.0-51.0 [facility] Comment on above: Order Comment: Speci men Type: BLOOD SPECIMEN Ordering Facility: [facility] Address: [address] [place] [address] Performed By: #### 5 195-3, 58998-2, 14529-9, 31617-5 #### [facility] CLIA [id number] [address] [place] [id number] [place] Hemoglobin (Bld) [Mass/Vol] 14.5 g/dL Normal 13.0-17.0 [facility] Comment on above: Order Comment: Speci men Type: BLOOD SPECIMEN Ordering Facility: [facility] Address: [address] [place] [address] Performed By: #### 5 195-3, 24303-2, 98912-2, 72923-9 #### [facility] CLIA [id number] [address] [place] [address] [place] Immature granulocytes (Bld) [#/Vol] 10*3/uL Normal <0.10 [facility] Comment on above: Order Comment: Speci men Type: BLOOD SPECIMEN Ordering Facility: [facility] Address: [address] [place] [address] Performed By: #### 5 195-3, 20634-0, 28288-9, 03981-7 #### [facility] CLIA [id number] [address] [place] [address] [place] Immature granulocytes/100 WBC (Bld) 0.2 % Normal [facility] Comment on above: Order Comment: Speci men Type: BLOOD SPECIMEN Ordering Facility: [facility] Address: [address] [place] [address] Performed By: #### 5 195-3, 63594-4, 58431-9, 10290-5 #### [facility] CLIA [id number] [address] [place] [id number] [place] Lymphocytes (Bld) [#/Vol] 1.88 10*3/uL Normal 1.00-4.00 [facility] Comment on above: Order Comment: Speci men Type: BLOOD SPECIMEN Ordering Facility: [facility] Address: [address] [place] [address] Performed By: #### 5 195-3, 40144-3, 29416-4, 34705-9 #### [facility] CLIA [id number] [address] [address] [place] Lymphocytes/100 WBC (Bld) 22.7 % Normal [facility] Comment on above: Order Comment: Speci men Type: BLOOD SPECIMEN Ordering Facility: [facility] Address: [address] [place] [address] Performed By: #### 5 195-3, 99842-1, 41421-1, 74117-3 #### [facility] CLIA [id number] [address] [place] [address] [place] MCH (RBC) [Entitic mass] 30.3 pg Normal 26.0-34.0 [facility] Comment on above: Order Comment: Speci men Type: BLOOD SPECIMEN Ordering Facility: [facility] Address: [address] [place] [address] Performed By: #### 5 195-3, 19391-1, 39955-7, 46738-3 #### [facility] CLIA [id number] [address] [place] [address] [place] MCHC (RBC) [Mass/Vol] 32.7 g/dL Normal 30.5-36.0 [facility] Comment on above: Order Comment: Speci men Type: BLOOD SPECIMEN Ordering Facility: [facility] Address: [address] [place] [address] Performed By: #### 5 195-3, 12248-7, 52273-6, 08615-6 #### [facility] CLIA [id number] [address] [place] [address] [place] MCV (RBC) [Entitic vol] 92.7 fL Normal 80.0-100.0 L [facility] Comment on above: Order Comment: Speci men Type: BLOOD SPECIMEN Ordering Facility: [facility] Address: [address] [place] [address] Performed By: #### 5 195-3, 54055-1, 43387-0, 08534-2 #### [facility] CLIA [id number] [address] [address] [place] Monocytes (Bld) [#/Vol] 0.81 10*3/uL Normal <0.87 [facility] Comment on above: Order Comment: Speci men Type: BLOOD SPECIMEN Ordering Facility: [facility] Address: [address] [place] [address] Performed By: #### 5 195-3, 27187-4, 07437-5, 39651-0 #### [facility] CLIA [id number] [address] [place] [address] [place] Monocytes/100 WBC (Bld) 9.8 % Normal [facility] Comment on above: Order Comment: Speci men Type: BLOOD SPECIMEN Ordering Facility: [facility] Address: [address] [place] [address] Performed By: #### 5 195-3, 73050-2, 37728-6, 82803-5 #### [facility] CLIA [id number] [address] [place] [address] [place] Neutrophils (Bld) [#/Vol] 5.36 10*3/uL Normal 1.45-7.50 [facility] Comment on above: Order Comment: Speci men Type: BLOOD SPECIMEN Ordering Facility: [facility] Address: [address] [place] [address] Performed By: #### 5 195-3, 31732-9, 39838-6, 44387-7 #### [facility] CLIA [id number] [address] [place] [address] [place] Neutrophils/100 WBC (Bld) 64.7 % Normal [facility] Comment on above: Order Comment: Speci men Type: BLOOD SPECIMEN Ordering Facility: [facility] Address: [address] [place] [address] Performed By: #### 5 195-3, 26726-0, 12533-4, 42744-9 #### [facility] CLIA [id number] [address] [place] [address] [place] Nucleated RBC (Bld) [#/Vol] 10*3/uL Normal <0.01 [facility] Comment on above: Order Comment: Speci men Type: BLOOD SPECIMEN Ordering Facility: [facility] Address: [address] [place] [address] Performed By: #### 5 195-3, 83716-9, 53782-1, 30089-1 #### [facility] CLIA [id number] [address] [place] [address] [place] Nucleated RBC/100 WBC (Bld) [Ratio] 0.0 /100 WBC Normal [facility] Comment on above: Order Comment: Speci men Type: BLOOD SPECIMEN Ordering Facility: [facility] Address: [address] [place] [address] Performed By: #### 5 195-3, 95921-5, 69113-3, 11874-1 #### [facility] CLIA [id number] [address] [place] [address] [place] Platelet mean volume (Bld) [Entitic vol] 10.2 fL Normal 9.0-12.7 [facility] Comment on above: Order Comment: Speci men Type: BLOOD SPECIMEN Ordering Facility: [facility] Address: [address] [place] [address] Performed By: #### 5 195-3, 52700-1, 68287-6, 70437-2 #### [facility] CLIA [id number] [address] [place], [place] [address] [place] Platelets (Bld) [#/Vol] 219 10*3/uL Normal 150-400 [facility] Comment on above: Order Comment: Speci men Type: BLOOD SPECIMEN Ordering Facility: [facility] Address: [address] [place] [address] Performed By: #### 5 195-3, 16669-4, 00592-2, 83310-5 #### [facility] CLIA [id number] [address] [place] [address] [place] RBC (Bld) [#/Vol] 4.79 10*6/uL Normal 4.20-6.00 [facility] [place] [facility] Comment on above: Order Comment: Speci men Type: BLOOD SPECIMEN Ordering Facility: [facility] Address: [address] [place] [address] Performed By: #### 5 195-3, 66415-0, 63404-0, 64715-2 #### [facility] CLIA [id number] [address] [place] [address] [place] WBC (Bld) [#/Vol] 8.28 10*3/uL Normal 3.70-11.00 [facility] [place] [facility] Comment on above: Order Comment: Speci men Type: BLOOD SPECIMEN Ordering Facility: [facility] Address: [address] [place] [address] Performed By: #### 5 195-3, 44154-7, 81404-8, 15005-7 #### [facility] CLIA [id number] [address] [place] [address] [place] CONSULTon 04-25-2023 CONSULT HNO ID: [id number] Author: Talita Deleon MD Service: Process Group Author Type: Physician Type: Consults Filed: 04/26/2023 9:17 AM Note Text: [facility] - Consultation KEKE PEMBERTON : 1990 AGE: 32 SEX: M CSN: [id number] [facility]: [facility] LOCATION: [facility] ATTENDING PHYSICIAN: SHELBY FELIZ DATE OF SERVICE: 04/25/2023 TIME OF SERVICE: 09:45 AM CONSULTING PHYSICIAN: Talita Deleon M.D. CHIEF COMPLAINTS: Depression. HISTORY OF PRESENT ILLNESS: The patient is admitted to the psych floor for depression and decompensation of his bipolar disorder. ALLERGIES: NKDA. MEDICATIONS: Muniz carbonate 300 daily at bedtime, Suboxone 8-2 daily, trazodone 50 mg at bedtime, and Protonix 40 mg daily. PAST MEDICAL AND PAST SURGICAL HISTORY: Bipolar disorder, GERD, ingested foreign body in the past that landed into the stomach, penis abscess, and attention deficit disorder. HABITS: Smokes 1 pack a day. Denies alcohol. Denies drugs. FAMILY HISTORY: Does not want to answer. Probably does not know anything about his family history. REVIEW OF SYSTEMS: No visual complaints. No hearing complaints. No skin complaints. No chest pain. No shortness of breath. No edema. No syncope. No seizures. No fever. No chills. No dysuria. No constipation. PHYSICAL EXAMINATION: General: He has very flat affect. Alert. Vital Signs: Within normal limits. Lungs: Clear. Heart: Regular S1-S2. Abdomen: Soft and nontender. Extremities: No edema. Neurologic: Nonfocal. LABORATORY DATA: CBC and CMP are unremarkable. Tox screen is positive for opiates and amphetamines. Lipid profile is good. Urinalysis is unremarkable. ASSESSMENT: Severe depression and altered mental status. PLAN: At this point in time, the patient is medically stable. The management is per Psychiatry. Talita Deleon M.D. [facility] [id number] /[id number] [facility] ED NOTEon 04-25-2023 ED NOTE HNO ID: [id number] Author: Sunshine Vargas RN Service: Nursing Author Type: Registered Nurse Type: ED Notes Filed: 04/25/2023 1:17 AM Note Text: Report called to Barbara PAL at this time. Patient report given to [facility] at bedside. Patients belongings from locker 9 sent with patient transport on transfer. [facility] ED PROV NOTEon 04-25-2023 ED PROV NOTE HNO ID: [id number] Author: Sunshine Duncan MD Service: Emergency Medicine Author Type: Physician Type: ED Provider Notes Filed: 04/25/2023 12:28 AM Note Text: ED CONTINUATION OF CARE NOTE Code Status: Prior Assumed care from: Dr Rowan Presentation / Findings / Interventions / Plan / Items to Follow Up: 32-year-old male with a history of depression. Awaiting psychiatric evaluation at time of signout. They did recommend admission and the patient is amenable to voluntary admission. Will be voluntarily admitted to [facility]. ED Course as of 04/24/232209 Others' Documentation Saige Apr 24, 20231937 EKG is normal sinus rhythm rate of 98. VT interval 148. QRS duration 88. QT 413. Axes 81 degrees. Patient has sinus arrhythmia. There is no injury ischemia or infarct pattern. [PH] 2032 Opiates(!): Preliminary positive [PH] 2032 Amphetamines(!): Preliminary positive [PH] 2039 I checked on the patient. He is asked me for some Ativan. Waiting for behavioral health. [PH] ED Course User Index [PH] Hrics, Kathy Johns MD Clinical Impressions as of 04/24/232209 Suicidal ideation Substance use disorder Bipolar affective disorder, currently depressed, moderate (HCC) Medical Decision Making SIGNATURE: Sunshine Duncan MD PATIENT NAME: Keke Pemberton DATE: April 24, 2023 TIME: 10:10 PM PAGER/CONTACT #: SUNSHINE DUNCAN 04/25/23 0028 Normal [facility] GGT SerPl-cCncon 04-25-2023 Gamma glutamyl transferase [Catalytic activity/Vol] 20 U/L Normal 10-70 [facility] Comment on above: Order Comment: Yeyo velasquez Type: BLOOD SPECIMEN Ordering Facility: [facility] Address: [address] [place] [address] Performed By: #### 5 195-3, 72465-5, 08291-5, 29239-1 #### [facility] CLIA [id number] [address] [place] [address] [place] HBV core Ab Ser Qlon 023 HBV core Ab Ql (S) Positive Abnormal Negative [facility] Comment on above: Order Comment: Yeyo velasquez Type: BLOOD SPECIMEN Ordering Facility: [facility] Address: [address] [place] [address] Result Comment: The result suggests either current or past infection with Hepatitis B virus. Non-specific reactivity may at times be seen with this test due to some underlying phenomena. Please correlate with HBsAg result and medical history. Performed By: #### 5 195-3, 70685-3, 25793-1, 62339-1 #### [facility] CLIA [id number] [address] [place] [address] [place] HBV surface Ab Ql (S)on 03-29 HBV surface Ab Qn (S) 260.79 mIU/mL [facility] Comment on above: Order Comment: Speci men Type: BLOOD SPECIMEN Ordering Facility: [facility] Address: [address] [place] [address] Result Comment: <8 m IU/mL: No serological evidence of immunity to Hepatitis B Virus. >/= 8 to <12 mIU/mL: No serological evidence of immunity to Hepatitis B Virus. >/= 12 mIU/mL: Consistent with serological evidence of immunity to Hepatitis B Virus. Performed By: #### 5 195-3, 03052-5, 57925-1, 17004-0 #### [facility] CLIA [id number] [address] [place] [address] [place] HBV surface Ab Ser Qlon 03-29 HBV surface Ab Ql (S) Positive Normal [facility] Comment on above: Order Comment: Speci men Type: BLOOD SPECIMEN Ordering Facility: [facility] Address: [address] [place] [address] Result Comment: Cons istent with serological evidence of immunity to Hepatitis B Virus. Performed By: #### 5 195-3, 45894-2, 31562-4, 45719-9 #### [facility] CLIA [id number] [address] [place] [address] [place] HBV surface Ag Ser Qlon 03-29 HBV surface Ag Ql (S) Negative Normal Negative [facility] Comment on above: Order Comment: Speci men Type: BLOOD SPECIMEN Ordering Facility: [facility] Address: [address] [place] [address] Performed By: #### 5 195-3, 38898-4, 66536-6, 68297-8 #### [facility] CLIA [id number] [address] [place] [address] [place] HCV Ab Ser Qlon 04-25-2023 HCV Ab Ql (S) Positive Abnormal Negative [facility] Comment on above: Order Comment: Speci men Type: BLOOD SPECIMEN Ordering Facility: [facility] Address: [address] [place] [address] Performed By: #### 5 195-3, 55382-9, 56091-6, 90869-4 #### [facility] CLIA [id number] [address] [place] [address] [place] HCV RNA SerPl JEWEL+probe-aCnc on 04-25-2023 HCV RNA JEWEL+probe Qn Abnormal HCV RNA not detected by PCR. [facility] Comment on above: Order Comment: Speci men Type: BLOOD SPECIMEN Ordering Facility: [facility] Address: [address] [place] [address] Result Comment: HCV RNA detected by PCR. 6860 3.84 Performed By: #### 5 195-3, 26419-6, 83423-9, 91547-9 #### [facility] CLIA [id number] [address] [place] [address] [place] HISTORY PHYSICALon HISTORY PHYSICAL HNO ID: [id number] Author: Shelby Feliz MD Service: Psychiatry Author Type: Physician Type: HANDP Filed: 04/25/2023 3:20 PM Note Text: HISTORY AND PHYSICAL BEHAVIORAL HEALTH SERVICE DATE: 04/25/2023 SERVICE TIME: 4:40AM IDENTIFYING INFORMATION: Keke Pemberton is a 32 year old person who identifies as male. REASON FOR ADMISSION: Suicidal ideation Subjective HPI: Keke presents for admission secondary to Risk of physical harm to self. 32 year old male with PPH of bipolar disorder, ADHD, anxiety, acute stress reaction, frequent hospitalizations for swallowing foreign objects, PMH of abscess of penis who presented to [facility] ED by EMS on 04/24/2023 for SI. Recently admitted at [facility] for intentional ingestion of battery and paperclips. In the ED, UDS: Alcohol, amphetamines, opiates. BAL 11. K+ 3.4, glu 131. CBC and CMP otherwise wnl.; QTc 413 ([place]). Medications given in ED: Ativan 1 mg. Vitals stable prior to transfer to behavioral health unit. PDMP reviewed on April 25, 2023. Patient has been prescribed buprenorphine-naloxo ne 8-2 mg film on 04/11/2023. Per [facility] on 04/24/23: Nature of the crisis: suicidal ideations Presenting Problem: Keke Pemberton is a 32 year old male brought in to [facility] from Home by ambulance for suicidal ideations. Pt was assessed telephonically. Pt presents with a history of substance use disorder, bipolar affective disorder, and swallowing foreign bodies. PT was AANDOx4, pt was calm and cooperative, pt was appropriate during assessment, pt was linear and organized, pt reports his mood as scared, pts insight and judgement needs improvement. Pt denies SI, HI, AVH, self- harm and delusions. Pt reports he had a loved one pass away yesterday and it has not been sitting right with him and he does not feel comfortable. He reports he witnessed his aunt have a heart attack and he has been having issues with falling and saying asleep, flashbacks, panic attacks, lack of appetite, lack of energy,it has been hard for him to get out of bed and he reports he has thought about self harm. He is not sure that he won't act on his thoughts due to the way that he is feeling he just does not know. He reports he does not feel safe with himself. He reports he does not have plan, suicidal thoughts have gone through his head but he is not having them now. Pt reports he has attempted suicide in the past does not recall when nor what he did just that he woke up at [facility]. Pt reports he was previously at [facility] and he did not find them to be helpful and he reports he was admitted 8 months to a year ago and he cut his wrist a little. Pt does not currently have any outpatient providers and actively taking psychiatric medications. Pt reports there are guns in the home and he could probably get access to them. Pt reports he lives with his uncle and his uncle has not been there so he has been alone with his thoughts. Pt reports he is his own guardian. Pt reports his suicidal thoughts scare him and he request an inpatient psychiatric admission. Per CL note by Dr. Flores on 01/03/23: REASON FOR CONSULTATION: Patient request, continues to swallow objects. IDENTIFYING INFO: Mr. Pemberton is a 32 year old male from [place], [place]. HISTORY OF PRESENT ILLNESS : Mr. Pemberton is a 32 year old male with a reported psychiatric history of ADHD who presented from retirement after reportedly swallowing batteries and a razor blade. Patient denied self-harm intent. Per chart review, patient swallows objects to get out of retirement. This is his 6th hospital visit in EMR for ingestion of foreign object in last 3 months. Patient states he does not know why he does this and asked to see psychiatry. Today, the patient states he has been having increasing suicidal ideation over the past few weeks initially, then later stated that it has been present for a few months. He reports only ideation and denies intent. He states it is due to his PTSD after he found his sister after she of fentayl overdose one year ago. He notes flashbacks 2x/month, but denies other symptoms of PTSD. Patient states being around the water is what triggers his anxiety, as he found his sister in the bathtub. Patient asks to be restarted on his home medications of Wellbutrin and Ativan. He reports a past history of bipolar disorder, and states that he was previously prescribed those medications prior to being in retirement. However he is unable to state the name of the psychiatrist he was seeing, and the name of the office. Patient becomes upset when he was told we would not prescribe his Wellbutrin or Ativan, as those are not indicated and bipolar disorder. Patient is fixated on those medications. Patient then got further upset when he was asked if he had ever been on medications which are indicated for bipolar disorder, such as Depakote or lithium. Patient was offered lithium, and e (more content not included)... [facility] HIV 1+2 Ab IA Qlon 3 HIV 1 and 2 Ab IA.rapid Nom (S/P/Bld) [facility] Comment on above: Order Comment: Speci men Type: BLOOD SPECIMEN Ordering Facility: [facility] Address: [address] [place] [address] Result Comment: Test not indicated. Performed By: #### 5 195-3, 97643-5, 44362-6, 60651-9 #### [facility] CLIA [id number] [address] [place] [address] [place] HIV 1+2 Ab+HIV1 p24 Ag IA Ql Non-Reactive Normal Nonreactive [facility] Comment on above: Order Comment: Speci men Type: BLOOD SPECIMEN Ordering Facility: [facility] Address: [address] [place] [address] Performed By: #### 5 195-3, 34639-3, 33160-3, 65653-8 #### [facility] CLIA [id number] [address] [place] [address] [place] HIV immunoassay testing algorithm interpretation (S/P/Bld) [Interp] [facility] Comment on above: Order Comment: Speci men Type: BLOOD SPECIMEN Ordering Facility: [facility] Address: [address] [place] [address] Result Comment: No e vidence of HIV-1 or HIV-2 infection. Should recent infection be suspected, repeat testing may be considered 2-3 weeks after this draw. [place] Rev. Code 3701.243(E): This information has been disclosed to you from confidential records protected from disclosure by state law. ???You shall make no further disclosure of this information without the specific, written, and informed release of the individual to whom it pertains or as otherwise permitted by state law. A general authorization for the release of medical or other information is not sufficient for the purpose of the release of HIV test results or diagnoses. Performed By: #### 5 195-3, 71655-6, 19175-6, 57577-8 #### [facility] CLIA [id number] [address] [place] [address] [place] HbA1c (Bld)on 04-25-2023 Average glucose Estimated from glycated hemoglobin (Bld) [Mass/Vol] 100 mg/dL [facility] Comment on above: Order Comment: Speci men Type: BLOOD SPECIMEN Ordering Facility: [facility] Address: [address] [place] [address] Result Comment: eAG: (Estimated average glucose) is a calculated value from HgbA1c and is vendor representatives of the average blood glucose level in the last 2-3 month period. Performed By: #### 5 195-3, 12525-8, 81029-8, 90911-4 #### [facility] CLIA [id number] [address] [place] [address] [place] HbA1c (Bld) [Mass fraction] 5.1 % Normal 4.3-5.6 [facility] Comment on above: Order Comment: Yeyo velasquez Type: BLOOD SPECIMEN Ordering Facility: [facility] Address: [address] [place] [address] Result Comment: Amer ican Diabetes Association guidelines indicate that patients with HgbA1c in the range 5.7-6.4% are at increased risk for development of diabetes, and intervention by lifestyle modification may be beneficial. HgbA1c greater or equal to 6.5% is considered diagnostic of diabetes. Performed By: #### 5 195-3, 80588-6, 48659-1, 00313-6 #### [facility] CLIA [id number] [address] [place] [address] [place] Lipid 1996 panelon 3 Cholesterol [Mass/Vol] 131 mg/dL Normal <200 [facility] Comment on above: Order Comment: Yeyo velasquez Type: BLOOD SPECIMEN Ordering Facility: [facility] Address: [address] [place] [address] Result Comment: <200 mg/dL, Desirable 200-239 mg/dL, Borderline high >239 mg/dL, High Performed By: #### 5 195-3, 78081-7, 86025-8, 52570-6 #### [facility] CLIA [id number] [address] [place] [address] [place] Cholesterol in HDL [Mass/Vol] 59 mg/dL Normal >39 [facility] Comment on above: Order Comment: Yeyo [facility] Type: BLOOD SPECIMEN Ordering Facility: [facility] Address: [address] [place] [address] Result Comment: 40-5 9 mg/dL, Acceptable >59 mg/dL, High: Negative risk factor for coronary heart disease <40 mg/dL, Low: Positive risk factor for coronary heart disease Performed By: #### 5 195-3, 37490-4, 62157-1, 63930-4 #### [facility] CLIA [id number] [address] [facility] [address] [address] [place] Cholesterol in LDL [Mass/Vol] 67 mg/dL Normal <100 [facility] Comment on above: Order Comment: Speci men Type: BLOOD SPECIMEN Ordering Facility: [facility] Address: [address] [place] [address] Result Comment: <100 mg/dL, Optimal 100-129 mg/dL, Near optimal/above optimal 130-159 mg/dL, Borderline high 160-189 mg/dL, High >189 mg/dL, Very high Secondary prevention optimal LDL Cholesterol levels are recommended to be < 70 mg/dL Performed By: #### 5 195-3, 31518-9, 32523-0, 36098-1 #### [facility] CLIA [id number] [address] [place] [address] [place] Cholesterol in LDL/Cholesterol in HDL [Mass ratio] 1.14 {ratio} Normal <2.54 [facility] Comment on above: Order Comment: Yeyo eva Type: BLOOD SPECIMEN Ordering Facility: [facility] Address: [address] [place] [address] Result Comment: Refsuellen lemos: 1. National Cholesterol Education Program ATP III Guideline At-A-Glance Quick Desk Reference: National Heart, Lung, and Blood [place]. National Institutes of Health. 2001: NIH Publication No. 01-3305. 2. An International Atherosclerosis Society position paper: global recommendations for the management of dyslipidemia: executive summary, Atherosclerosis. 2014: 232(2):410-413. Performed By: #### 5 195-3, 41051-7, 43173-7, 31684-5 #### [facility] CLIA [id number] [address] [facility] [place] [address] [place] Cholesterol in VLDL [Mass/Vol] 5 mg/dL Normal <30 [facility] Comment on above: Order Comment: Speci men Type: BLOOD SPECIMEN Ordering Facility: [facility] Address: [address] [place] [address] Performed By: #### 5 195-3, 53174-8, 48220-3, 82608-1 #### [facility] CLIA [id number] [address] [place] [address] [place] Cholesterol non HDL [Mass/Vol] 72 mg/dL Normal <130 [facility] Comment on above: Order Comment: Speci men Type: BLOOD SPECIMEN Ordering Facility: [facility] Address: [address] [place] [address] Result Comment: <130 mg/dL, Optimal 130-159 mg/dL, Near optimal/above optimal 160-189 mg/dL, Borderline high 190-219 mg/dL, High >219 mg/dL, Very high Secondary prevention optimal non HDL Cholesterol levels are recommended to be <100 mg/dL Performed By: #### 5 195-3, 11754-4, 16345-6, 62484-3 #### [facility] CLIA [id number] [address] [place] [address] [place] Cholesterol.total/Stacey sterol in HDL [Mass ratio] 2.22 {ratio} Normal <5.10 [facility] Comment on above: Order Comment: Speci men Type: BLOOD SPECIMEN Ordering Facility: [facility] Address: [address] [place] [address] Performed By: #### 5 -3, 78499-3, 01300-1, 69334-5 #### [facility] CLIA [id number] [address] [place] [address] [place] FASTING TIME Unknown Normal [facility] Comment on above: Order Comment: Speci men Type: BLOOD SPECIMEN Ordering Facility: [facility] Address: [address] [place] [address] Performed By: #### 5 195-3, 48199-0, 04773-1, 02892-9 #### [facility] CLIA [id number] [address] [place] [address] [place] Triglyceride [Mass/Vol] 27 mg/dL Normal <150 L [facility] Comment on above: Order Comment: Speci men Type: BLOOD SPECIMEN Ordering Facility: [facility] Address: [address] [place] [address] Result Comment: <150 mg/dL, Normal 150-199 mg/dL, Borderline high 200-499 mg/dL, High >499 mg/dL, Very high Performed By: #### 5 195-3, 35221-6, 55769-7, 33961-5 #### [facility] CLIA [id number] [facility] [place] [address] [place] NURSING PROGon 04-25-2023 NURSING PROG HNO ID: [id number] Author: Vivek Zazueta RN Service: Nursing Author Type: Registered Nurse Type: Nursing Progress Note Filed: 04/26/2023 6:07 AM Note Text: Nursing Progress Note Patient Name: Keke Pemberton Patient Location: [address]- Daily Note: 1930 Assumed care of patient. Pt in the day area when approached. AANDOx3, calm, and cooperative during assessment. Well groomed in personal attire. Clear and loud speech. Behavior in control. Pt appears sad and depressed. Endorsed depression and anxiety. Denies prescribed PRNs. Pt requesting Valium. GARY paged and no order received. Pt informed it was one time order. Pt expressed understanding. Denies SI/HI/AVH. Compliant with scheduled meds. Denies any other complaints. No acute distress noted at this time. Encouraged to reach out to clinical staff with any other issues or concerns. Safety maintained. Plan of care continues. 2044: COWS 3. HR 87. Reports anxiety 10. Pt refusing PRNs meds at this time. 2144 COWS 3. HR 85. Pt c/o difficulty sleeping and anxiety. Requesting and given PRN Trazodone and Atarax. No further acute distress noted. 0000 Pt observed sleep. Respiration unlabored and equal. 0600: Pt slept throughout the night. Pt slept 8 hrs. No visible distress noted. This note was completed by: Vviek Zazueta [facility] NURSING PROG HNO ID: [id number] Author: Katelyn Eller RN Service: Nursing Author Type: Registered Nurse Type: Nursing Progress Note Filed: 04/25/2023 7:18 PM Note Text: Nursing Progress Note Patient Name: Keke Pemberton Patient Location: [address]/[facility] Daily Note: [id number] 0730: Assumed care of pt. Pt is asleep at this time. No signs of acute distress noted. 0930: Pt is woken up for BH assessment. Presents as depressed with congruent affect. Speech is clear and linear but verbal responses are short. Denies SI/HI/AVH and pain. CIWA and CINA 0. Compliant with scheduled meds. 1400: Pt declines scheduled vitamin B1. Remains withdrawn to his room intermittently napping. 1530: Pt is reporting high anxiety and and generalized aching pain. COWS 5. HR 115. Scheduled suboxone is administered. 1630: COWS 3. HR 114. Reports anxiety is improving and denies pain. 1815: COWS 9. HR 121. PRN suboxone administered. This note was completed by: Katelyn Eller [facility] NURSING PROG HNO ID: [id number] Author: Moon Mauro RN Service: ? Author Type: Registered Nurse Type: Nursing Progress Note Filed: 04/25/2023 4:26 AM Note Text: Patient arrived on the unit calm and cooperative with care. Patient endorsed wishing he could go to sleep and never wake up but didn't have a plan or any intent of hurting his self. Patient states he is having a hard time feeling safe with his thoughts due to the of a family member. Patient admitted to taking Percocet and Adderall a couple of days ago. Patient takes Suboxone daily. Denies any current SI/HI/AVH. Patient had one SA many years ago but doesn't remember what he did just that he woke up at [facility]. A year ago patient was admitted to [facility] with a little cut on his wrist and swallowed a wrapped razor blade.Patient lives with his uncle and feels safe. States there are no guns in the house. Patient has a new tattoo on his left shoulder. Patients goal is to get on track and get resources. Patient went to sleep at 0235. [facility] Reagin and Treponema pallidu m IgG and IgM [Interp]on 04-25-2023 T. pallidum IgG+IgM IA Ql (S) Non-Reactive Normal Nonreactive [facility] Comment on above: Order Comment: Speci men Type: BLOOD SPECIMEN Ordering Facility: [facility] Address: [address] [place] [address] Performed By: #### 7 3752-8 #### [facility] CLIA [id number] [address] [place] [address] [place] Reagin+T pallidum IgG+IgM Se rPl-Impon 04-25-2023 Reagin and Treponema pallidum IgG and IgM [Interp] Cannot exclude recent Treponemal infection if specimen collected within 7-10 days after appearance of suspect lesions or 2-3 weeks after an exposure. Clinical correlation is required. [facility] Comment on above: Order Comment: Arianei [facility] Type: BLOOD SPECIMEN Ordering Facility: [facility] Address: [address] [place] [address] Performed By: #### 7 3752-8 #### [facility] CLIA [id number] [address] [place] [address] [place] TSH SerPl-aCncon 04-25-2023 TSH Qn 0.614 m[IU]/L Normal 0.270-4.200 [facility] Comment on above: Order Comment: Speci men Type: BLOOD SPECIMEN Ordering Facility: [facility] Address: [address] [place] [address] Performed By: #### 5 195-3, 75737-2, 64374-7, 22481-2 #### [facility] CLIA [id number] [address] [place] Vit B12 [facility] Cobalamin (Vitamin B12) [Mass/Vol] 429 pg/mL Normal 232-1245 [facility] Comment on above: Order Comment: Speci men Type: BLOOD SPECIMEN Ordering Facility: [facility] Address: [address] [place] [address] Performed By: #### 5 195-3, 55436-4, 37861-9, 52050-7 #### [facility] CLIA [id number] [address] [place] [address] [place] CBC panel Auto (Bld)on 04-24 Erythrocyte distribution width (RBC) [Ratio] 11.6 % Normal 11.5-15.0 [facility] Comment on above: Order Comment: Speci men Type: BLOOD SPECIMENOrdering Facility: [facility] Address: [address] [place] [address] Performed By: #### 5 8410-2 ####[facility] [id number] [address] [place] Hematocrit (Bld) [Volume fraction] 41.2 % Normal 39.0-51.0 [facility] Comment on above: Order Comment: Speci men Type: BLOOD SPECIMENOrdering Facility: [facility] Address: [address] [place] [address] Performed By: #### 5 8410-2 ####[facility] [id number] [place] [id number] [place] Hemoglobin (Bld) [Mass/Vol] 14.0 g/dL Normal 13.0-17.0 [facility] Comment on above: Order Comment: Speci men Type: BLOOD SPECIMENOrdering Facility: [facility] Address: [address] [place] [address] Performed By: #### 5 8410-2 ####[facility] [id number] [address] MCH (RBC) [Entitic mass] 30.9 pg Normal 26.0-34.0 [facility] Comment on above: Order Comment: Speci men Type: BLOOD SPECIMENOrdering Facility: [facility] Address: [address] [place] [address] Performed By: #### 5 8410-2 ####[facility] [id number] [address] MCHC (RBC) [Mass/Vol] 34.0 g/dL Normal 30.5-36.0 [facility] Comment on above: Order Comment: Speci men Type: BLOOD SPECIMENOrdering Facility: [facility] Address: [address] [place] [address] Performed By: #### 5 8410-2 ####[facility] [id number] [address] MCV (RBC) [Entitic vol] 90.9 fL Normal 80.0-100.0 [facility] Comment on above: Order Comment: Speci men Type: BLOOD SPECIMENOrdering Facility: [facility] Address: [address] [place] [address] Performed By: #### 5 8410-2 ####[facility] [id number] [address] Nucleated RBC (Bld) [#/Vol] 10*3/uL Normal <0.01 [facility] Comment on above: Order Comment: Speci men Type: BLOOD SPECIMENOrdering Facility: [facility] Address: [address] [place] [address] Performed By: #### 5 8410-2 ####[facility] [id number] [address] Platelet mean volume (Bld) [Entitic vol] 9.9 fL Normal 9.0-12.7 [facility] Comment on above: Order Comment: Speci men Type: BLOOD SPECIMENOrdering Facility: [facility] Address: [address] [place] [address] Performed By: #### 5 8410-2 ####[facility]ORY[facility] [id number] [address] [place] Platelets (Bld) [#/Vol] 227 10*3/uL Normal 150-400 [facility] Comment on above: Order Comment: Speci men Type: BLOOD SPECIMENOrdering Facility: [facility] Address: [address] [place] [address] Performed By: #### 5 8410-2 ####[facility]ORYCL[facility] [id number] [address] [place] RBC (Bld) [#/Vol] 4.53 10*6/uL Normal 4.20-6.00 [facility] Comment on above: Order Comment: Speci men Type: BLOOD SPECIMENOrdering Facility: [facility] Address: [address] [place] [address] Performed By: #### 5 8410-2 ####[facility]ORYCL[facility] [id number] [address] [place] WBC (Bld) [#/Vol] 9.21 10*3/uL Normal 3.70-11.00 [facility] Comment on above: Order Comment: Speci men Type: BLOOD SPECIMENOrdering Facility: [facility] Address: [address] [place] [address] Performed By: #### 5 8410-2 ####[facility]ORYCLIA [id number] [address] [place] Comprehensive metabolic 2000 panelon 04-24-2023 Albumin [Mass/Vol] 4.4 g/dL Normal 3.9-4.9 [facility] Comment on above: Order Comment: Speci men Type: BLOOD SPECIMENOrdering Facility: [facility] Address: [address] [place] [address] Performed By: #### 2 4323-8 ####[facility]ORYCL[facility] [id number] [address] [place] ALP [Catalytic activity/Vol] 108 U/L Normal 38-113 [facility] Comment on above: Order Comment: Speci men Type: BLOOD SPECIMENOrdering Facility: [facility] Address: [place] [address] Performed By: #### 2 4323-8 ####[facility]ORYCLIA [id number] [place] [address] [place] ALT [Catalytic activity/Vol] 41 U/L Normal 10-54 [facility] Comment on above: Order Comment: Speci men Type: BLOOD SPECIMENOrdering Facility: [facility] Address: [address] [place] [address] Performed By: #### 2 4323-8 ####[facility]ORYCLIA [id number] [address] [place] Anion gap [Moles/Vol] 8 mmol/L Low 9-18 [facility] Comment on above: Order Comment: Speci men Type: BLOOD SPECIMENOrdering Facility: [facility] Address: [address] [place] [address] Performed By: #### 2 4323-8 ####[facility]ORYCLIA [id number] [address] AST [Catalytic activity/Vol] 37 U/L Normal 14-40 [facility] Comment on above: Order Comment: Speci men Type: BLOOD SPECIMENOrdering Facility: [facility] Address: [address] [place] [address] Performed By: #### 2 4323-8 ####[facility]ORATORYCLIA [id number] [place] [address] [place] Bilirubin [Mass/Vol] 0.4 mg/dL Normal 0.2-1.3 [facility] Comment on above: Order Comment: Speci men Type: BLOOD SPECIMENOrdering Facility: [facility] Address: [address] [place] [address] [place] [address] Performed By: #### 2 4323-8 ####[facility]ORATORYCLIA [id number] [place] [address] [place] Calcium [Mass/Vol] 9.4 mg/dL Normal 8.5-10.2 [facility] Comment on above: Order Comment: Speci men Type: BLOOD SPECIMENOrdering Facility: [facility] Address: [address] [place] [address] Performed By: #### 2 4323-8 ####[facility]ORATORYCLIA [id number] [place] [address] [place] Chloride [Moles/Vol] 100 mmol/L Normal 97-105 [facility] Comment on above: Order Comment: Speci men Type: BLOOD SPECIMENOrdering Facility: [facility] Address: [address] [place] [address] Performed By: #### 2 4323-8 ####[facility]ATORYCLIA [id number] [place] [address] [place] CO2 [Moles/Vol] 29 mmol/L Normal 22-30 [facility] Comment on above: Order Comment: Speci men Type: BLOOD SPECIMENOrdering Facility: [facility] Address: [address] [place] [address] Performed By: #### 2 4323-8 ####[facility]ATORYCLIA [id number] [place] [address] [place] Creatinine [Mass/Vol] 0.82 mg/dL Normal 0.73-1.22 [facility] Comment on above: Order Comment: Speci men Type: BLOOD SPECIMENOrdering Facility: [facility] Address: [address] [place] [address] Performed By: #### 2 4323-8 ####[facility]ORATORYCLIA [id number] [address] OF [facility] Creatinine and Glomerular filtration rate.predicted panel (S/P/Bld) 120 mL/min/1.73m??? Normal >=60 [facility] Comment on above: Order Comment: Speci men Type: BLOOD SPECIMENOrdering Facility: [facility] Address: [address] [place] [address] Result Comment: Erica mated Glomerular Filtration Rate (eGFR) is calculated using the 2020 CKD-EPI creatinine equation. This equation utilizes serum creatinine, sex, and age as parameters. The creatinine assay has traceable calibration to isotope dilution-mass spectrometry. Refer to KDIGO guidelines for clinical interpretation. In patients with unstable renal function, e.g. those with acute kidney injury, the eGFR may not accurately reflect actual GFR. Performed By: #### 2 4323-8 ####[facility]ORATORYCLIA [id number] [place] [address] [place] Glucose [Mass/Vol] 131 mg/dL High 74-99 [facility] Comment on above: Order Comment: Yeyo velasquez Type: BLOOD SPECIMENOrdering Facility: [facility] Address: [address] [place] [address] Result Comment: The [place] Diabetes Association (ADA) provides guidance for cutoff values for fasting glucose and random glucose. The ADA defines fasting as no caloric intake for at least 8 hours. Fasting plasma glucose results between 100 to 125 mg/dL indicate increased risk for diabetes (prediabetes). Fasting plasma glucose results greater than or equal to 126 mg/dL meet the criteria for diagnosis of diabetes. In the absence of unequivocal hyperglycemia, results should be confirmed by repeat testing. In a patient with classic symptoms of hyperglycemia or hyperglycemic crisis, random plasma glucose results greater than or equal to 200 mg/dL meet the criteria for diagnosis of diabetes. Reference: Standards of Medical Care in Diabetes 2016, [place] Diabetes Association. Diabetes Care. 2016.39(Suppl 1). Performed By: #### 2 4323-8 ####[facility] LABORATORYCLIA [id number] [place] [address] [place] Potassium [Moles/Vol] 3.4 mmol/L Low 3.7-5.1 [facility] Comment on above: Order Comment: Yeyo velasquez Type: BLOOD SPECIMENOrdering Facility: [facility] Address: [address] [place] [address] Performed By: #### 2 4323-8 ####[facility]ORATORYCLIA [id number] [place] [address] [place] Protein [Mass/Vol] 7.2 g/dL Normal 6.3-8.0 [facility] Comment on above: Order Comment: Yeyo velasquez Type: BLOOD SPECIMENOrdering Facility: [facility] Address: [address] [place] [address] Performed By: #### 2 4323-8 ####[facility]ORATORYCLIA [id number] [address] Sodium [Moles/Vol] 137 mmol/L Normal 136-144 [facility] Comment on above: Order Comment: Speci men Type: BLOOD SPECIMENOrdering Facility: [facility] Address: [address] [place] [address] Performed By: #### 2 4323-8 ####[facility]ORATORYCLIA [id number] [address] Urea nitrogen [Mass/Vol] 13 mg/dL Normal 9-24 [facility] Comment on above: Order Comment: Speci men Type: BLOOD SPECIMENOrdering Facility: [facility] Address: [address] [place] [address] Performed By: #### 2 4323-8 ####[facility]ORATORYCLIA [id number] [address] ECG COMPLETEon 04-24-2023 ECG COMPLETE Ventricular Rate : 98 BPM Atrial Rate : 98 BPM P-R Interval : 148 ms QRS Duration : 88 ms Q-T Interval : 324 ms QTC Calculation(Bazett) : 413 ms Calculated P [place] : 72 degrees Calculated R [place] : 81 degrees Calculated T [place] : 62 degrees SINUS RHYTHM WITH MARKED SINUS ARRHYTHMIA OTHERWISE NORMAL ECG no STEMI Confirmed by KATHY ROWAN ([id number]), health editor SUN FERRARI ([id number]) on 04/25/2023 9:00:31 AM NAME : KEKE PEMBERTON PID : [id number] : 1990 Gender : Male Race : ORD : [id number] Procedure Date : Apr 24 2023 19:32:05 Edit Date : Apr 25 2023 09:00:33 Diagnosis: SINUS RHYTHM WITH MARKED SINUS ARRHYTHMIA OTHERWISE NORMAL ECG no STEMI Confirmed by KATHY ROWAN ([id number]), health editor SUN FERRRAI ([id number]) on 04/25/2023 9:00:31 AM Test Reason : Arrhythmia Location : 1 : ER ED Overread By : KATHY ROWAN Edited By : SUN FERRARI Referred By : , Acquired by : , Isma [facility] ED NOTEon 04-24-2023 ED NOTE HNO ID: [id number] Author: Rubia Cox Medic Service: ? Author Type: Director Of Social Media Marketing and [employer] Pot[employer] Supervisor Type: ED Notes Filed: 04/24/2023 9:42 PM Note Text: Pt done on phone with central intake at this time. [facility] ED NOTE HNO ID: [id number] Author: Sunshine Vargas RN Service: Nursing Author Type: Registered Nurse Type: ED Notes Filed: 04/24/2023 9:06 PM Note Text: This RN updated CI on patient case at this time. Patient to speak with CI when phone becomes available. [facility] ED NOTE HNO ID: [id number] Author: Sunshine Vargas RN Service: Nursing Author Type: Registered Nurse Type: ED Notes Filed: 04/24/2023 8:55 PM Note Text: [facility] ED NOTE HNO ID: [id number] Author: Sunshine Vargas RN Service: Nursing Author Type: Registered Nurse Type: ED Notes Filed: 04/24/2023 8:08 PM Note Text: Patient resting comfortably in bed at shift change. Patient is calm and cooperative. He scored low risk on CSSR scale but does admit to severe depression related to recent events of witnessing a . He was placed in a safety room and safety gown. Will continue to monitor and complete medical evaluation. [facility] ED NOTE HNO ID: [id number] Author: Castillo Parikh RN Service: Nursing Author Type: Registered Nurse Type: ED Notes Filed: 04/24/2023 6:21 PM Note Text: Pt presents to ER from home for CC SI. Pt states that he recently experienced a in the family and has since been more depressed and scared because of potential thoughts of self harm. Does not currently endorse a plan. [facility] ED PROV NOTEon 04-24-2023 ED PROV NOTE HNO ID: [id number] Author: Kathy Rowan MD Service: Emergency Medicine Author Type: Physician Type: ED Provider Notes Filed: 04/24/2023 8:41 PM Note Text: ED Provider Note Patient Name: Keke Pemberton : 1990 SERVICE DATE: 04/24/23 History Patient presents with: Depression This is a 32-year-old male recently in the last couple days witnessed cardiac arrest and of a family member. This has been very distressing to the patient. Patient has suicidal ideation. He does not have a plan. Patient also has a history of substance use disorder. I prescribed the patient Suboxone in the last couple weeks. He states that he is doing well with that and is trying to find a doctor to treat him. History provided by: Patient lapeler used: No PAST MEDICAL HISTORY Diagnosis Date ADHD (attention deficit hyperactivity disorder) PAST SURGICAL HISTORY Procedure Laterality Date NONE FAMILY HISTORY Problem Relation Age of Onset Cancer Mother Heart Father Social History Tobacco Use Smoking status: Every Day Packs/day: .5 Types: Cigarettes Smokeless tobacco: Former Vaping Use Vaping Use: Never used Substance and Sexual Activity Alcohol use: Not Currently Comment: occassional Drug use: Yes Types: Marijuana Comment: Hx of IV Sexual activity: Not on file ALLERGIES No Known Allergies Review of Systems Psychiatric/Behavior al: Positive for sleep disturbance and suicidal ideas. Physical Exam Vitals [04/24/23 1821] BP Pulse Temp Temp src Resp SpO2 Weight Height 126/74 (!) 110 36.6 ?C (97.9 ?F) Oral 18 98 % 68.2 kg (150 lb 5.7 oz) -- Physical Exam Vitals and nursing note reviewed. HENT: Head: Normocephalic and atraumatic. Eyes: Extraocular Movements: Extraocular movements intact. Conjunctiva/sclera: Conjunctivae normal. Pupils: Pupils are equal, round, and reactive to light. Cardiovascular: Rate and Rhythm: Normal rate and regular rhythm. Pulses: Normal pulses. Heart sounds: Normal heart sounds. Pulmonary: Effort: Pulmonary effort is normal. Breath sounds: Normal breath sounds. Abdominal: General: Abdomen is flat. Musculoskeletal: General: Normal range of motion. Cervical back: Neck supple. Skin: General: Skin is warm and dry. Capillary Refill: Capillary refill takes less than 2 seconds. Neurological: General: No focal deficit present. Mental Status: He is alert. Psychiatric: Thought Content: Thought content includes suicidal ideation. Thought content does not include suicidal plan. Diagnostic Testing ED Labs Ordered and Reviewed COMP METABOLIC PANEL - Abnormal; Notable for the following components: Result Value Ref Range Glucose 131 (*) 74 - 99 mg/dL Potassium 3.4 (*) 3.7 - 5.1 mmol/L Anion Gap 8 (*) 9 - 18 mmol/L All other components within normal limits URINALYSIS WITH MICROSCOPIC, REFLEX CULTURE - Abnormal; Notable for the following components: Clarity Slightly Cloudy (*) Clear pH, Urine 8.5 (*) 5.0 - 8.0 Protein, Urine 2+ (*) Negative All other components within normal limits TOX SCREEN ROUT UR - Abnormal; Notable for the following components: Amphetamines Urine Preliminary positive (*) Negative Opiates Urine Preliminary positive (*) Negative All other components within normal limits Narrative: Immunoassay screen only. Cross reactivity with other substances can occur with immunoassay screening. Detection of any drug(s) in this urine toxicology panel is presumptive only. These tests are for medical purposes only and should not be used for compliance monitoring, legal, or forensic use. Samples should be within normal physiological conditions (e.g. pH). This assay does not include adulteration/specime n validity testing. In clinical settings, confirmatory testing is at the practitioner's discretion [1]. If clinically indicated, confirmation by high specificity, quantitative methodology, which includes adulteration/specime n validity testing, may be requested on the same specimen through Client Services ([phone]) if contacted within 48 hours of initial testing. [1]Substance Abuse and Mental Health Services Administration (2012). Clinical Drug Testing in Primary Care Technical Assistance Publication Series 32. Department of Health and Human Services, [place], p.10. ALCOHOL/ETHANOL BLD - Abnormal; Notable for the following components: Ethanol 11 (*) <11 mg/dL All other components within normal limits CBC - Normal COVID NAAT, UPPER RESPIRATORY, EXPEDITED - Normal Narrative: This test has been authorized by FDA under an Emergency Use Authorization (EUA). Procedures ED Course / Clinical Impression ED Course as of 04/24/232039 Kathy Rowan's Documentation Saige Apr 24, 20231937 EKG is normal sinus rhythm rate of 98. VT interval 148. QRS duration 88. QT 413. Axes 81 degrees. Patient has sinus arrhythmia. There is no injury ischemia or in (more content not included)... Normal [facility] Ethanol [facility] 023 Ethanol [Mass/Vol] 11 mg/dL High <11 [facility] Comment on above: Order Comment: Speci men Type: BLOOD SPECIMENOrdering Facility: [facility] Address: [address] [place] [address] Performed By: #### 5 643-2 ####[facility]ORATORYCLIA [id number] [place] [address] [place] FENTANYL AND METABOLITE CONF SANTO, MARIBELLon 04-24-2023 fentaNYL Confirm (U) [Mass/Vol] 8 ng/mL High <[address] [place] [address] Comment on above: Order Comment: Speci men Type: BLOOD SPECIMEN [facility] Facility: [facility] Address: [address] [place] [address] Result Comment: Pres ence of fentanyl indicates use of a fentanyl containing drug. Fentanyl is metabolized to norfentanyl. Performed By: #### 5 195-3, 15552-5, 31131-7, 58467-3 #### [facility] CLIA [id number] [address] [place] [address] [place] Norfentanyl Confirm (U) [Mass/Vol] 316 ng/mL High <[address] [place] [address] Comment on above: Order Comment: Speci men Type: BLOOD SPECIMEN [facility]ing Facility: [facility] Address: [address] [place] [address] Result Comment: Norf entanyl is a metabolite of fentanyl, and its presence indicates use of a fentanyl containing drug. Performed By: #### 5 195-3, 57975-5, 49700-5, 90261-9 #### [facility] CLIA [id number] [facility] [place] [address] [place] NOTE (UFENT) [facility] Comment on above: Order Comment: Speci men Type: BLOOD SPECIMEN Ordering Facility: [facility] Address: [address] [place] [address] Result Comment: This test is for medical use only. This test was developed and its performance characteristics determined by [facility] [place] [facility] [place] (-[facility]). It has not been cleared or approved by the FDA. -[facility] is regulated under CLIA as qualified to perform high-complexity testing. This test is used for clinical purposes. It should not be regarded as investigational or for research. Performed By: #### 5 195-3, 81170-7, 27869-2, 48470-6 #### [facility] CLIA [id number] [address] [place] [address] [place] FENTANYL SCREEN W/REFLEX, QU ALITATIVE, URINEon 04-24-2023 fentaNYL Screen Ql (U) Sent for confirmation Abnormal Negative [facility] Comment on above: Order Comment: Speci men Type: BLOOD SPECIMEN [facility]: [facility] Address: [address] [place] [address] Result Comment: Cuto ff threshold at 5 ng/mL. Performed By: #### 5 195-3, 19635-4, 24696-8, 22303-1 #### [facility] CLIA [id number] [address] [place] [address] [place] SARS-CoV-2 RNA Resp Ql JEWEL+p robeon 04-24-2023 SARS-CoV-2 (COVID-19) RNA JEWEL+probe Ql (Resp) COVID 19 RESULT: Not detected The method used is RT-PCR or an equivalent NAAT method. Reference Range(the expected result in uninfected individuals): Not detected Normal [facility] Comment on above: Performed By: #### 9 4500-6 ####[facility] [id number] [place] [address] [place] SPECIMEN VALIDITY, URINEon 1 06-25-2022 CHROMATE,URINE <10 Normal <50 [facility] Comment on above: Order Comment: Speci men Type: BLOOD SPECIMEN [facility]: [facility] Address: [address] [place] [address] Performed By: #### 5 195-3, 20758-4, 26323-3, 08958-4 #### [facility] CLIA [id number] [address] [place] [address] [place] CREATININE,URINE 155.4 mg/dL Normal 20.0-300.0 [facility] Comment on above: Order Comment: Speci men Type: BLOOD SPECIMEN [facility]: [facility] Address: [address] [place] [address] Performed By: #### 5 195-3, 11143-8, 41759-5, 33400-3 #### [facility] CLIA [id number] [address] [place] [address] [place] NITRITES,URINE <50 Normal <500 [facility] Comment on above: Order Comment: Speci men Type: BLOOD SPECIMEN [facility]: [facility] Address: [address] [place] [address] Performed By: #### 5 195-3, 12025-3, 84478-0, 61440-2 #### [facility] CLIA [id number] [address] [place] [address] [place] OXIDANTS,URINE <38 Normal <200 [facility] Comment on above: Order Comment: Speci men Type: BLOOD SPECIMEN Order[facility]: [facility] Address: [address] [place] [address] Performed By: #### 5 195-3, 88320-9, 11899-7, 08448-5 #### [facility] CLIA [id number] [address] [place] [address] [place] pH (U) 8.8 [pH] High 4.5-8.0 [facility] Comment on above: Order Comment: Speci men Type: BLOOD SPECIMEN [facility] Address: [address] [place] [address] Performed By: #### 5 195-3, 50563-4, 23818-9, 00201-4 #### [facility] CLIA [id number] [address] [place] [address] [place] SPEC GRAVITY,UR 1.019 Normal 1.003-1.035 [facility] Comment on above: Order Comment: Speci men Type: BLOOD SPECIMEN [facility] Address: [address] [place] [address] Performed By: #### 5 195-3, 78639-3, 98064-8, 74487-3 #### [facility] CLIA [id number] [address] [place] [address] [place] SPECIMEN VALIDITY QUALITY Specimen quality results within acceptable limits [facility] Comment on above: Order Comment: Speci men Type: BLOOD SPECIMEN [facility] Address: [address] [place] [address] Performed By: #### 5 195-3, 64778-0, 52429-7, 63494-9 #### [facility] CLIA [id number] [address] [place] [address] [place] TOX SCREEN ROUT URon 12-28-2 023 Amphetamines Confirm (U) [Mass/Vol] Positive Abnormal Negative [facility] Comment on above: Order Comment: Speci men Type: URINE SPECIMENOrdering Facility: [facility] Address: [address] [place] [address] Result Comment: Cuto ff threshold at 1000 ng/mL. Performed By: #### U TOX2 ####[facility]ORATORYCLIA [id number] [place] [address] [place] BARBITURATES, URINE Negative Normal Negative [facility] Comment on above: Order Comment: Speci men Type: URINE SPECIMENOrdering Facility: [facility] Address: [address] [place] [address] Result Comment: Cuto ff threshold at 200 ng/mL. Performed By: #### U TOX2 ####[facility]ORATORYCLIA [id number] [place] [address] [place] BENZODIAZEPINES, UR Negative Normal Negative [facility] Comment on above: Order Comment: Speci men Type: URINE SPECIMENOrdering Facility: [facility] Address: [address] [place] [address] Result Comment: Cuto ff threshold at 200 ng/mL. Performed By: #### U TOX2 ####[facility]ORATORYCLIA [id number] [place] [address] [place] Cannabinoids Screen Ql (U) Negative Normal Negative [facility] Comment on above: Order Comment: Speci men Type: URINE SPECIMENOrdering Facility: [facility] Address: [address] [place] [address] Result Comment: Cuto ff threshold at 50 ng/mL. Performed By: #### U TOX2 ####[facility]ORATORYCLIA [id number] [place] [address] [place] Cocaine Ql (U) Negative Normal Negative [facility] Comment on above: Order Comment: Speci men Type: URINE SPECIMENOrdering Facility: [facility] Address: [address] [place] [address] Result Comment: Cuto ff threshold at 300 ng/mL. Performed By: #### U TOX2 ####[facility]ORATORYCLIA [id number] [place] [address] [place] Ethanol (U) [Mass/Vol] <11 Normal <11 [facility] Comment on above: Order Comment: Speci men Type: URINE SPECIMENOrdering Facility: [facility] Address: [address] [place] [address] Performed By: #### U TOX2 ####[facility] LABORATORYCLIA [id number] [place] [address] [place] Opiates Screen Ql (U) Positive Abnormal Negative [facility] Comment on above: Order Comment: Speci men Type: URINE SPECIMENOrdering Facility: [facility] Address: [address] [place] [address] Result Comment: Cuto ff threshold at 300 ng/mL. Performed By: #### U TOX2 ####[facility]ORATORYCLIA [id number] [place] [address] [place] oxyCODONE cutoff Screen (U) [Mass/Vol] Negative Normal Negative [facility] Comment on above: Order Comment: Speci men Type: URINE SPECIMENOrdering Facility: [facility] Address: [address] [place] [address] Result Comment: Cuto ff threshold at 100 ng/mL. Performed By: #### U TOX2 ####[facility] LABORATORYCLIA [id number] [place] [address] [place] Phencyclidine Ql (U) Negative Normal Negative [facility] Comment on above: Order Comment: Speci men Type: URINE SPECIMENOrdering Facility: [facility] Address: [address] [place] [address] Result Comment: Cuto ff threshold at 25 ng/mL. Performed By: #### U TOX2 ####[facility]ORATORYCLIA [id number] [address] Urinalysis complete panel (U )on 04-24-2023 Bilirubin Ql (U) Negative Normal Negative [facility] Comment on above: Order Comment: Speci men Type: URINE SPECIMENOrdering Facility: [facility] Address: [address] [place] [address] Performed By: #### 2 4356-8 ####[facility]ORATORYCLIA [id number] [address] Clarity (Unsp spec) Slightly Cloudy Abnormal Clear [facility] Comment on above: Order Comment: Speci men Type: URINE SPECIMENOrdering Facility: [facility] Address: [address] [place] [address] Performed By: #### 2 4356-8 ####[facility] LABORATORYCLIA [id number] [address] STATES [facility] Color (U) Yellow Normal Yellow [facility] Comment on above: Order Comment: Speci men Type: URINE SPECIMENOrdering Facility: [facility] Address: [address] [place] [address] Performed By: #### 2 4356-8 ####[facility] LABORATORYCLIA [id number] [address] Epithelial cells LM.HPF (Urine sed) [#/Area] Few Normal [facility] Comment on above: Order Comment: Speci men Type: URINE SPECIMENOrdering Facility: [facility] Address: [address] [place] [address] Performed By: #### 2 4356-8 ####[facility]ORATORYCLIA [id number] [address] Glucose Test strip (U) [Mass/Vol] Negative Normal Negative [facility] Comment on above: Order Comment: Speci men Type: URINE SPECIMENOrdering Facility: [facility] Address: [address] [place] [address] Performed By: #### 2 4356-8 ####[facility] LABORATORYCLIA [id number] [address] STATES [facility] Hemoglobin Ql (U) Negative Normal Negative [facility] Comment on above: Order Comment: Speci men Type: URINE SPECIMENOrdering Facility: [facility] Address: [address] [place] [address] Performed By: #### 2 4356-8 ####[facility] LABORATORYCLIA [id number] [place] [address] [place] Ketones Ql (U) Negative Normal Negative [facility] Comment on above: Order Comment: Speci men Type: URINE SPECIMENOrdering Facility: [facility] Address: [address] [place] [address] Performed By: #### 2 4356-8 ####[facility] LABORATORYCLIA [id number] [address] Leukocyte esterase Test strip Ql (U) Negative Normal Negative [facility] Comment on above: Order Comment: Speci men Type: URINE SPECIMENOrdering Facility: [facility] Address: [address] [place] [address] Performed By: #### 2 4356-8 ####[facility]ORATORYCLIA [id number] [address] [place] Nitrite Ql (U) Negative Normal Negative [facility] Comment on above: Order Comment: Speci men Type: URINE SPECIMENOrdering Facility: [facility] Address: [address] [place] [address] Performed By: #### 2 4356-8 ####[facility] LABORATORYCLIA [id number] [address] [place] pH (U) 8.5 [pH] High 5.0-8.0 [facility] Comment on above: Order Comment: Speci men Type: URINE SPECIMENOrdering Facility: [facility] Address: [address] [place] [address] Performed By: #### 2 4356-8 ####[facility] LABORATORYCLIA [id number] [place] [address] [place] Protein (U) [Mass/Vol] 2+ Abnormal Negative [facility] Comment on above: Order Comment: Speci men Type: URINE SPECIMENOrdering Facility: [facility] Address: [address] [place] [address] Performed By: #### 2 4356-8 ####[facility] LABORATORYCLIA [id number] [address] RBC LM.HPF (Urine sed) [#/Area] 0-3 /HPF Normal 0-3 /HPF [facility] Comment on above: Order Comment: Speci men Type: URINE SPECIMENOrdering Facility: [facility] Address: [address] [place] [address] Performed By: #### 2 4356-8 ####[facility] LABORATORYCLIA [id number] [address] Specific gravity (U) [Rel density] 1.020 Normal 1.005-1.030 [facility] Comment on above: Order Comment: Speci men Type: URINE SPECIMENOrdering Facility: [facility] Address: [address] [place] [address] Performed By: #### 2 4356-8 ####[facility]ORATORYCLIA [id number] [address] Urobilinogen Ql (U) 0.2 EU/dL Normal 0.2-1.0 EU/dL [facility] Comment on above: Order Comment: Speci men Type: URINE SPECIMENOrdering Facility: [facility] Address: [address] [place] [address] Performed By: #### 2 4356-8 ####[facility]ORATORYCLIA [id number] [address] WBC LM.HPF (Urine sed) [#/Area] 0-5 /HPF Normal 0-5 /HPF [facility] Comment on above: Order Comment: Speci men Type: URINE SPECIMENOrdering Facility: [facility] Address: [address] [place] [address] Performed By: #### 2 4356-8 ####[facility]ORATORYCLIA [id number] [address] CBC panel Auto (Bld)on 04-11 Erythrocyte distribution width (RBC) [Ratio] 11.9 % Normal 11.5-15.0 [facility] Comment on above: Order Comment: Speci men Type: BLOOD SPECIMENOrdering Facility: [facility] Address: [address] [place] [address] Performed By: #### 5 8410-2 ####[facility]ORATORYCLIA [id number] [address] Hematocrit (Bld) [Volume fraction] 40.6 % Normal 39.0-51.0 [facility] Comment on above: Order Comment: Speci men Type: BLOOD SPECIMENOrdering Facility: [facility] Address: [address] [place] [address] Performed By: #### 5 8410-2 ####[facility]ORATORYCLIA [id number] [address] Hemoglobin (Bld) [Mass/Vol] 13.2 g/dL Normal 13.0-17.0 [facility] Comment on above: Order Comment: Speci men Type: BLOOD SPECIMENOrdering Facility: [facility] Address: [address] [place] [address] Performed By: #### 5 8410-2 ####[facility]ORATORYCLIA [id number] [address] MCH (RBC) [Entitic mass] 29.9 pg Normal 26.0-34.0 [facility] Comment on above: Order Comment: Speci men Type: BLOOD SPECIMENOrdering Facility: [facility] Address: [address] [place] [address] Performed By: #### 5 8410-2 ####[facility]ORATORYCLIA [id number] [address] MCHC (RBC) [Mass/Vol] 32.5 g/dL Normal 30.5-36.0 [facility] Comment on above: Order Comment: Speci men Type: BLOOD SPECIMENOrdering Facility: [facility] Address: [address] [place] [address] Performed By: #### 5 8410-2 ####[facility] LABORATORYCLIA [id number] [place] [address] [place] MCV (RBC) [Entitic vol] 92.1 fL Normal 80.0-100.0 M [facility] Comment on above: Order Comment: Speci men Type: BLOOD SPECIMENOrdering Facility: [facility] Address: [address] [place] [address] Performed By: #### 5 8410-2 ####[facility]ORATORYCLIA [id number] [place] [address] [place] Nucleated RBC (Bld) [#/Vol] 10*3/uL Normal <0.01 [facility] Comment on above: Order Comment: Speci men Type: BLOOD SPECIMENOrdering Facility: [facility] Address: [address] [place] [address] Performed By: #### 5 8410-2 ####[facility]ORATORYCLIA [id number] [place] [address] [place] Platelet mean volume (Bld) [Entitic vol] 9.2 fL Normal 9.0-12.7 [facility] [facility] Comment on above: Order Comment: Speci men Type: BLOOD SPECIMENOrdering Facility: [facility] Address: [address] [place] [address] Performed By: #### 5 8410-2 ####MARK LABORATORYCLIA [id number] [address] [place] Platelets (Bld) [#/Vol] 308 10*3/uL Normal 150-400 [facility] Comment on above: Order Comment: Speci men Type: BLOOD SPECIMENOrdering Facility: [facility] Address: [address] [place] [address] Performed By: #### 5 8410-2 ####MARK LABORATORYCLIA [id number] [place] [address] [place] RBC (Bld) [#/Vol] 4.41 10*6/uL Normal 4.20-6.00 [facility] Comment on above: Order Comment: Speci men Type: BLOOD SPECIMENOrdering Facility: [facility] Address: [address] [place] [address] Performed By: #### 5 8410-2 ####MARK LABORATORYCLIA [id number] [place] [address] [place] WBC (Bld) [#/Vol] 9.44 10*3/uL Normal 3.70-11.00 [facility] Comment on above: Order Comment: Speci men Type: BLOOD SPECIMENOrdering Facility: [facility] Address: [address] [place] [address] Performed By: #### 5 8410-2 ####MARK LABORATORYCLIA [id number] [address] Comprehensive metabolic 2000 panelon 04-11-2023 Albumin [Mass/Vol] 4.0 g/dL Normal 3.9-4.9 [facility] Comment on above: Order Comment: Speci men Type: BLOOD SPECIMENOrdering Facility: [facility] Address: [address] [place] [address] Performed By: #### 2 4323-8 ####MARK LABORATORYCLIA [id number] [address] ALP [Catalytic activity/Vol] 82 U/L Normal 38-113 [facility] Comment on above: Order Comment: Speci men Type: BLOOD SPECIMENOrdering Facility: [facility] Address: [address] [place] [address] Performed By: #### 2 4323-8 ####MARK LABORATORYCLIA [id number] [address] ALT [Catalytic activity/Vol] 23 U/L Normal 10-54 [facility] Comment on above: Order Comment: Speci men Type: BLOOD SPECIMENOrdering Facility: [facility] Address: [address] [place] [address] Performed By: #### 2 4323-8 ####MARK LABORATORYCLIA [id number] [address] Anion gap [Moles/Vol] 7 mmol/L Low 9-18 [facility] Comment on above: Order Comment: Speci men Type: BLOOD SPECIMENOrdering Facility: [facility] Address: [address] [place], [place] [address] Performed By: #### 2 4323-8 ####MARK LABORATORYCLIA [id number] [place] [address] [place] AST [Catalytic activity/Vol] 18 U/L Normal 14-40 [facility] Comment on above: Order Comment: Speci men Type: BLOOD SPECIMENOrdering Facility: [facility] Address: [address] [place] [address] Performed By: #### 2 4323-8 ####MARK LABORATORYCLIA [id number] [place] [address] [place] Bilirubin [Mass/Vol] 0.3 mg/dL Normal 0.2-1.3 [facility] Comment on above: Order Comment: Speci men Type: BLOOD SPECIMENOrdering Facility: [facility] Address: [address] [place] [address] Performed By: #### 2 4323-8 ####MARK LABORATORYCLIA [id number] [place] [address] [place] Calcium [Mass/Vol] 9.0 mg/dL Normal 8.5-10.2 [facility] Comment on above: Order Comment: Speci men Type: BLOOD SPECIMENOrdering Facility: [facility] Address: [address] [place] [address] Performed By: #### 2 4323-8 ####MARK LABORATORYCLIA [id number] [place] [address] [place] Chloride [Moles/Vol] 104 mmol/L Normal 97-105 [facility] Comment on above: Order Comment: Speci men Type: BLOOD SPECIMENOrdering Facility: [facility] Address: [address] [facility] [facility] [address] Performed By: #### 2 4323-8 ####MARK LABORATORYCLIA [id number] [place] [address] [place] CO2 [Moles/Vol] 28 mmol/L Normal 22-30 [facility] Comment on above: Order Comment: Speci men Type: BLOOD SPECIMENOrdering Facility: [facility] Address: [address] [place] [address] Performed By: #### 2 4323-8 ####MARK LABORATORYCLIA [id number] [address] [place] Creatinine [Mass/Vol] 0.77 mg/dL Normal 0.73-1.22 [facility] Comment on above: Order Comment: Yeyo velasquez Type: BLOOD SPECIMENOrdering Facility: [facility] Address: [address] [place] [address] Performed By: #### 2 4323-8 ####[facility] LABORATORYCLIA [id number] [address] Creatinine and Glomerular filtration rate.predicted panel (S/P/Bld) 122 mL/min/1.73m??? Normal >=60 [facility] Comment on above: Order Comment: Yeyo velasquez Type: BLOOD SPECIMENOrdering Facility: [facility] Address: [address] [place] [address] Result Comment: Erica mated Glomerular Filtration Rate (eGFR) is calculated using the 2020 CKD-EPI creatinine equation. This equation utilizes serum creatinine, sex, and age as parameters. The creatinine assay has traceable calibration to isotope dilution-mass spectrometry. Refer to KDIGO guidelines for clinical interpretation. In patients with unstable renal function, e.g. those with acute kidney injury, the eGFR may not accurately reflect actual GFR. Performed By: #### 2 4323-8 ####MARK LABORATORYCLIA [id number] [address] Glucose [Mass/Vol] 114 mg/dL High 74-99 [facility] Comment on above: Order Comment: Yeyo velasquez Type: BLOOD SPECIMENOrdering Facility: [facility] Address: [address] [place] [address] Result Comment: The [place] Diabetes Association (ADA) provides guidance for cutoff values for fasting glucose and random glucose. The ADA defines fasting as no caloric intake for at least 8 hours. Fasting plasma glucose results between 100 to 125 mg/dL indicate increased risk for diabetes (prediabetes). Fasting plasma glucose results greater than or equal to 126 mg/dL meet the criteria for diagnosis of diabetes. In the absence of unequivocal hyperglycemia, results should be confirmed by repeat testing. In a patient with classic symptoms of hyperglycemia or hyperglycemic crisis, random plasma glucose results greater than or equal to 200 mg/dL meet the criteria for diagnosis of diabetes. Reference: Standards of Medical Care in Diabetes 2016, [place] Diabetes Association. Diabetes Care. 2016.39(Suppl 1). Performed By: #### 2 4323-8 ####MARK LABORATORYCLIA [id number] [place] [address] [place] Potassium [Moles/Vol] 3.7 mmol/L Normal 3.7-5.1 [facility] Comment on above: Order Comment: Speci men Type: BLOOD SPECIMENOrdering Facility: [facility] Address: [address] [place] [address] Performed By: #### 2 4323-8 ####MARK LABORATORYCLIA [id number] [place] [address] [place] Protein [Mass/Vol] 6.6 g/dL Normal 6.3-8.0 [facility] Comment on above: Order Comment: Speci men Type: BLOOD SPECIMENOrdering Facility: [facility] Address: [address] [place] [address] Performed By: #### 2 4323-8 ####MARK LABORATORYCLIA [id number] [address] [place] Sodium [Moles/Vol] 139 mmol/L Normal 136-144 [facility] Comment on above: Order Comment: Arianei men Type: BLOOD SPECIMENOrdering Facility: [facility] Address: [address] [place] [address] Performed By: #### 2 4323-8 ####MARK LABORATORYCLIA [id number] [place] [address] [place] Urea nitrogen [Mass/Vol] 15 mg/dL Normal 9-24 [facility] Comment on above: Order Comment: Speci men Type: BLOOD SPECIMENOrdering Facility: [facility] Address: [address] [place] [address] Performed By: #### 2 4323-8 ####MARK LABORATORYCLIA [id number] [place] [address] [place] ECG COMPLETEon 04-11-2023 ECG COMPLETE Ventricular Rate : 93 BPM Atrial Rate : 93 BPM P-R Interval : 148 ms QRS Duration : 90 ms Q-T Interval : 348 ms QTC Calculation(Bazett) : 432 ms Calculated P [place] : 81 degrees Calculated R [place] : 88 degrees Calculated T [place] : 70 degrees SINUS RHYTHM WITH MARKED SINUS ARRHYTHMIA OTHERWISE NORMAL ECG no stemi Confirmed by KATHY ROWAN ([id number]), health editor MARSHA WILLIS ([id number]) on 04/11/2023 4:51:49 PM NAME : KEKE PEMBERTON PID : [id number] : 1990 Gender : Male Race : ORD : [id number] Procedure Date : Apr 11 2023 11:41:35 Edit Date : Apr 11 2023 16:51:50 Diagnosis: SINUS RHYTHM WITH MARKED SINUS ARRHYTHMIA OTHERWISE NORMAL ECG no stemi Confirmed by KATHY ROWAN ([id number]), health editor MARSHA WILLIS ([id number]) on 04/11/2023 4:51:49 PM Test Reason : Arrhythmia Location : 1 : ER ED Overread By : KATHY ROWAN Edited By : MARSHA WILLIS Referred By : , Acquired by : DORA, [facility] ED NOTEon 04-11-2023 ED NOTE HNO ID: [id number] Author: Liv Mathews RN Service: ? Author Type: Registered Nurse Type: ED Notes Filed: 04/11/2023 2:41 PM Note Text: Discharged pt. with diagnosis of substance use disorder. Discharge and follow up instructions given. Pt. verbalized understanding of discharge instructions. Pt. has no further questions and/or concerns at this time. Heplock d/c'd. Pt. ambulates with steady gait. Rx e-scripted. [facility] ED NOTE HNO ID: [id number] Author: Sabrina Alvarado, DEMARCO Service: ? Author Type: Registered Nurse Type: ED Notes Filed: 04/11/2023 10:45 AM Note Text: Pt to ED reports he is having nausea, vomiting and body cramping- detoxing from Fentanyl. Last use was two days ago. [facility] ED PROV NOTEon 04-11-2023 ED PROV NOTE HNO ID: [id number] Author: Kathy Rowan MD Service: Emergency Medicine Author Type: Physician Type: ED Provider Notes Filed: 04/11/2023 2:23 PM Note Text: ED Provider Note Patient Name: Keke Pemberton : 1990 SERVICE DATE: 04/11/23 History Patient presents with: Drug Problem This is a 32-year-old male who has substance use disorder. Patient states that he uses fentanyl IV. His last use was 2 days ago. He states that he does not want to and he wants inpatient treatment. He states a few weeks ago he used Suboxone but it made him feel poorly. He is having symptoms of anxiousness nausea, peripheral perspiration. COWS score is 12. History provided by: Patient and medical records lapeler used: No PAST MEDICAL HISTORY Diagnosis Date ADHD (attention deficit hyperactivity disorder) PAST SURGICAL HISTORY Procedure Laterality Date NONE FAMILY HISTORY Problem Relation Age of Onset Cancer Mother Heart Father Social History Tobacco Use Smoking status: Every Day Packs/day: .5 Types: Cigarettes Smokeless tobacco: Former Vaping Use Vaping Use: Never used Substance and Sexual Activity Alcohol use: Not Currently Comment: occassional Drug use: Yes Types: Marijuana Comment: Hx of IV Sexual activity: Not on file ALLERGIES No Known Allergies Review of Systems Constitutional: Positive for diaphoresis. Respiratory: Negative for cough. Cardiovascular: Negative for chest pain. Gastrointestinal: Positive for nausea. Neurological: Positive for tremors. Physical Exam Vitals BP Pulse Temp Temp src Resp SpO2 Weight Height 04/11/23 1045 04/11/23 1044 04/11/23 1044 04/11/23 1044 04/11/23 1044 04/11/23 1044 04/11/23 1044 -- 125/73 78 36.6 ?C (97.8 ?F) Temporal 18 100 % 72.6 kg (160 lb) Physical Exam Vitals and nursing note reviewed. Exam conducted with a company miner blasting present. Constitutional: Appearance: Normal appearance. HENT: Head: Normocephalic and atraumatic. Nose: Nose normal. Eyes: General: No scleral icterus. Conjunctiva/sclera: Conjunctivae normal. Cardiovascular: Rate and Rhythm: Regular rhythm. Tachycardia present. Heart sounds: Normal heart sounds. Pulmonary: Effort: Pulmonary effort is normal. Breath sounds: Normal breath sounds. Abdominal: Tenderness: There is no abdominal tenderness. Skin: General: Skin is warm and dry. Comments: Patient has a rash around his mouth where he had cold sores. Neurological: Mental Status: He is alert and oriented to person, place, and time. Cranial Nerves: No cranial nerve deficit. Sensory: No sensory deficit. Motor: No weakness. Coordination: Coordination normal. Gait: Gait normal. Diagnostic Testing ED Labs Ordered and Reviewed COMP METABOLIC PANEL - Abnormal; Notable for the following components: Result Value Ref Range Glucose 114 (*) 74 - 99 mg/dL Anion Gap 7 (*) 9 - 18 mmol/L All other components within normal limits TOX SCREEN ROUT UR - Abnormal; Notable for the following components: Cocaine Urine Preliminary positive (*) Negative Amphetamines Urine Preliminary positive (*) Negative All other components within normal limits Narrative: Immunoassay screen only. Cross reactivity with other substances can occur with immunoassay screening. Detection of any drug(s) in this urine toxicology panel is presumptive only. These tests are for medical purposes only and should not be used for compliance monitoring, legal, or forensic use. Samples should be within normal physiological conditions (e.g. pH). This assay does not include adulteration/specime n validity testing. In clinical settings, confirmatory testing is at the practitioner's discretion [1]. If clinically indicated, confirmation by high specificity, quantitative methodology, which includes adulteration/specime n validity testing, may be requested on the same specimen through Client Services ([phone]) if contacted within 48 hours of initial testing. [1]Substance Abuse and Mental Health Services Administration (2012). Clinical Drug Testing in Primary Care Technical Assistance Publication Series 32. Department of Health and Human Services, [place], p.10. CBC - Normal ALCOHOL/ETHANOL BLD - Normal COVID NAAT, UPPER RESPIRATORY, EXPEDITED - Normal Narrative: This test has been authorized by FDA under an Emergency Use Authorization (EUA). URINALYSIS WITH MICROSCOPIC, REFLEX CULTURE Procedures ED Course / Clinical Impression ED Course as of 04/11/23 1423 Kathy Rowan's Documentation FriApr 11, 2023 1351 EKG shows sinus rhythm with a rate of 93. VT interval 148. QRS 90. QT 432. [place] 80 degrees. There is no injury schema or infarct pattern. 1353 Today's EKG was compared to 12/09/2022. The patient was in sinus tachycardia with a rate of 101. There is no significant change. Clinical Impressions as of 04/11/23 1423 Substance use disorder Narcotic a (more content not included)... Normal [facility] Ethanol SerPl-mCncon 023 Ethanol [Mass/Vol] mg/dL Normal <11 [facility] Comment on above: Order Comment: Speci men Type: BLOOD SPECIMENOrdering Facility: [facility] Address: [address] [place] [address] Performed By: #### 5 643-2 ####MARK LABORATORYCLIA [id number] [place] [address] [facility] [place] SARS-CoV-2 RNA Resp Ql JEWEL+p robeon 04-11-2023 SARS-CoV-2 (COVID-19) RNA JEWEL+probe Ql (Resp) COVID 19 RESULT: Not detected The method used is RT-PCR or an equivalent NAAT method. Reference Range(the expected result in uninfected individuals): Not detected Normal [facility] Comment on above: Performed By: #### 9 4500-6 ####MARK LABORATORYCLIA [id number] [address] TOX SCREEN ROUT URon 023 Amphetamines Confirm (U) [Mass/Vol] Positive Abnormal Negative [facility] Comment on above: Order Comment: Speci men Type: URINE SPECIMENOrdering Facility: [facility] Address: [address] [place] [address] Result Comment: Cuto ff threshold at 1000 ng/mL. Performed By: #### U TOX2 ####MARK LABORATORYCLIA [id number] [address] [place] BARBITURATES, URINE Negative Normal Negative [facility] Comment on above: Order Comment: Speci men Type: URINE SPECIMENOrdering Facility: [facility] Address: [address] [place] [address] Result Comment: Cuto ff threshold at 200 ng/mL. Performed By: #### U TOX2 ####MARK LABORATORYCLIA [id number] [place] [address] [place] BENZODIAZEPINES, UR Negative Normal Negative [facility] Comment on above: Order Comment: Speci men Type: URINE SPECIMENOrdering Facility: [facility] Address: [address] [place] [address] Result Comment: Cuto ff threshold at 200 ng/mL. Performed By: #### U TOX2 ####MARK LABORATORYCLIA [id number] [address] [place] Cannabinoids Screen Ql (U) Negative Normal Negative [facility] Comment on above: Order Comment: Speci men Type: URINE SPECIMENOrdering Facility: [facility] Address: [address] [place] [address] Result Comment: Cuto ff threshold at 50 ng/mL. Performed By: #### U TOX2 ####MARK LABORATORYCLIA [id number] [place] [address] [place] Cocaine Ql (U) Positive Abnormal Negative [facility] Comment on above: Order Comment: Speci men Type: URINE SPECIMENOrdering Facility: [facility] Address: [address] [place] [address] Result Comment: Cuto ff threshold at 300 ng/mL. Performed By: #### U TOX2 ####MARK LABORATORYCLIA [id number] [address] [place] Ethanol (U) [Mass/Vol] <11 Normal <11 [facility] Comment on above: Order Comment: Speci men Type: URINE SPECIMENOrdering Facility: [facility] Address: [address] [place] [address] Performed By: #### U TOX2 ####MARK LABORATORYCLIA [id number] [address] [place] Opiates Screen Ql (U) Negative Normal Negative [facility] Comment on above: Order Comment: Speci men Type: URINE SPECIMENOrdering Facility: [facility] Address: [address] [place] [address] Result Comment: Cuto ff threshold at 300 ng/mL. Performed By: #### U TOX2 ####MARK LABORATORYCLIA [id number] [address] [place] oxyCODONE cutoff Screen (U) [Mass/Vol] Negative Normal Negative [facility] Comment on above: Order Comment: Speci men Type: URINE SPECIMENOrdering Facility: [facility] Address: [address] [place] [address] Result Comment: Cuto ff threshold at 100 ng/mL. Performed By: #### U TOX2 ####MARK LABORATORYCLIA [id number] [place] [id number] [facility] Phencyclidine Ql (U) Negative Normal Negative [facility] Comment on above: Order Comment: Speci men Type: URINE SPECIMENOrdering Facility: [facility] Address: [address] [place] [address] Result Comment: Cuto ff threshold at 25 ng/mL. Performed By: #### U TOX2 ####MARK LABORATORYCLIA [id number] [place] [id number] [facility] [place] ALLIED HEALTHon 04-10-2023 ALLIED HEALTH HNO ID: [id number] Author: Dang Moscoso V RT(R) Service: Radiology Author Type: Technologist Type: Allied Health Filed: 04/10/2023 2:48 PM Note Text: Radiology Service Progress Note PATIENT NAME: Keke Pemberton DATE OF SERVICE: April 10, 2023 TIME: 2:48 PM PATIENT IDENTITY VERIFICATION COMPLETED USING TWO (2) IDENTIFIERS: Name and Date of confirmed by patient verbally and Name and Date of confirmed by identification band. FALL SCREENING: Has the patient had 2 falls in the last year or 1 fall with injury or currently using an Ambulatory Assistive Device (Walker, Cane, Wheelchair, Crutches, etc.)? Emergency Room Patient: Screened in ED PATIENT GENDER DATA: Male PATIENT RELEVANT IMPLANT DATA REVIEWED: Not Applicable RADIOLOGY DEPARTMENT: General X-ray: Exam(s) Completed: Chest X-Ray Abdomen X-Ray: Abdomen PERIPHERAL IV DATA: Not applicable SIGNED BY: RT Lizette(R) April 10, 2023 2:48 PM [facility] ED NOTEon 04-10-2023 ED NOTE HNO ID: [id number] Author: Jailyn Reid RN Service: ? Author Type: Registered Nurse Type: ED Notes Filed: 04/10/2023 3:23 PM Note Text: pt not see in ER pt was walking back and forth to bathroom pt not in room or bathroom right now. Normal [facility] ED NOTE HNO ID: [id number] Author: Liv Mathews RN Service: ? Author Type: Registered Nurse Type: ED Notes Filed: 04/10/2023 2:01 PM Note Text: Pt to ED, states he accidentally swallowed a AAA battery while trying to change remote batteries. Reports some mild abd pain. [facility] ED PROV NOTEon 04-10-2023 ED PROV NOTE HNO ID: [id number] Author: Junior Parikh MD Service: ? Author Type: Physician Type: ED Provider Notes Filed: 04/10/2023 3:46 PM Note Text: ED Provider Note Patient Name: Keke Pemberton : 1990 SERVICE DATE: 04/10/23 History Patient presents with: Foreign Body Ingestion: AAA battery Patient presenting secondary to an ingested foreign body. Patient has a history of frequent foreign body ingestions in the past. Patient tells me that he was changing batteries and had a AAA battery in his mouth. He reports that he accidentally swallowed it. Patient does endorse that he has some mild epigastric pain. Patient denies that he is suicidal homicidal or hallucinating. PAST MEDICAL HISTORY Diagnosis Date ADHD (attention deficit hyperactivity disorder) PAST SURGICAL HISTORY Procedure Laterality Date NONE FAMILY HISTORY Problem Relation Age of Onset Cancer Mother Heart Father Social History Tobacco Use Smoking status: Every Day Packs/day: .5 Types: Cigarettes Smokeless tobacco: Former Vaping Use Vaping Use: Never used Substance and Sexual Activity Alcohol use: Not Currently Comment: occassional Drug use: Yes Types: Marijuana Comment: Hx of IV Sexual activity: Not on file ALLERGIES No Known Allergies Review of Systems Constitutional: Negative for activity change and fever. HENT: Negative for rhinorrhea and sore throat. Respiratory: Negative for cough and shortness of breath. Cardiovascular: Negative for chest pain. Gastrointestinal: Positive for abdominal pain. Negative for diarrhea, nausea and vomiting. Genitourinary: Negative for dysuria. Musculoskeletal: Negative for myalgias. Skin: Negative for rash. Neurological: Negative for weakness and numbness. Psychiatric/Behavior al: Negative for self-injury. Physical Exam Vitals [04/10/23 1400] BP Pulse Temp Temp src Resp SpO2 Weight Height 141/86 (!) 114 36.4 ?C (97.6 ?F) Temporal 16 98 % 61.7 kg (136 lb) -- Physical Exam Vitals and nursing note reviewed. Constitutional: General: He is not in acute distress. Appearance: Normal appearance. He is well-developed. HENT: Head: Normocephalic and atraumatic. Nose: Nose normal. Mouth/Throat: Mouth: Mucous membranes are dry. Comments: Multiple sores surrounding patient's mouth, somewhat dry mucous membranes noted Eyes: Conjunctiva/sclera: Conjunctivae normal. Pupils: Pupils are equal, round, and reactive to light. Cardiovascular: Rate and Rhythm: Regular rhythm. Tachycardia present. Heart sounds: Normal heart sounds. Comments: Radial pulses 2+ bilaterally Pulmonary: Effort: Pulmonary effort is normal. No respiratory distress. Breath sounds: Normal breath sounds. Abdominal: General: Bowel sounds are normal. There is no distension. Palpations: Abdomen is soft. Tenderness: There is no abdominal tenderness. Musculoskeletal: General: No tenderness. Normal range of motion. Cervical back: Normal range of motion and neck supple. Lymphadenopathy: Cervical: No cervical adenopathy. Skin: General: Skin is warm and dry. Capillary Refill: Capillary refill takes less than 2 seconds. Findings: No rash. Neurological: Mental Status: He is alert and oriented to person, place, and time. GCS: GCS eye subscore is 4. GCS verbal subscore is 5. GCS motor subscore is 6. Sensory: No sensory deficit. Motor: No weakness. Psychiatric: Mood and Affect: Mood normal. Diagnostic Testing ED Labs Ordered and Reviewed - No data to display Procedures ED Course / Clinical Impression Clinical Impressions as of 04/10/23 1546 Swallowed foreign body, initial encounter Foreign body in stomach, initial encounter MDM / Disposition / Plan Patient presenting secondary to an ingestion of a AAA alkaline battery. X-ray did confirm this to be in the patient's stomach. Patient was mildly tachycardic, complained of mild epigastric pain but he does not have evidence of a surgical abdomen on my concern for the possibility of perforation. I discussed patient's case with the National battery ingestion hotline (case #[id number]). They recommended that the patient receive Carafate and a 48-hour x-ray to ensure that the battery was adequately passing. I was attempting to arrange for outpatient follow-up for the patient's, and he eloped from the emergency department. History and Record Review External record(s) reviewed: prior outpatient record and prior inpatient record. Findings from review of inpatient records: Ultimately similar prior presentations Differential Diagnoses - Foreign body ingestion - Suicide attempt - Psychiatric instability - Perforated viscus is less likely for the following reason(s): HANDP not suggestive Management I performed an independent interpretation of the following:imaging Imaging: My interpretation is National battery ingestion hotline Radiology Reports XR CHEST 1V FRONT (more content not included)... Normal [facility] XR ABDOMEN 1V SUPINEon 04-10 XR ABDOMEN 1V SUPINE * * *Final Report* * * DATE OF EXAM: Apr 10 2023 2:50PM MDX 5289 - XR ABDOMEN 1V SUPINE / PROCEDURE REASON: Ingested foreign body * * * * Physician Interpretation * * * * Abdomen supine: HISTORY: Indication: Ingested foreign body TECHNIQUE: Views obtained: XR ABDOMEN 1V SUPINE Comparison: 01/06/2023 RESULT: Findings: Metallic foreign bodies noted projecting over the epigastric region No abnormal calcifications are seen. The bowel gas pattern is nonspecific and unremarkable.. No bony abnormalities are seen IMPRESSION: Metallic foreign body noted projecting over the epigastric region Recreation Facilities Supervisor: HEAVENLY Transcribe Date/Time: Apr 10 2023 2:55P Dictated by : ISAK THOMPSON DO This examination was interpreted and the report reviewed and electronically signed by: ISAK THOMPSON DO on Apr 10 2023 2:58PM EST [id number] CN Normal [facility] XR CHEST 1V FRONTAL PORTon 1 06-11-2022 XR CHEST 1V FRONTAL PORT * * *Final Report* * * DATE OF EXAM: Apr 10 2023 2:50PM MDX 5376 - XR CHEST 1V FRONTAL PORT / PROCEDURE REASON: Foreign body * * * * Physician Interpretation * * * * EXAMINATION: CHEST RADIOGRAPH (PORTABLE SINGLE VIEW AP) Exam Date/Time: 04/10/2023 2:50 PM CLINICAL HISTORY: Foreign body MQ: XCPR_5 Comparison: Chest radiograph 01/03/2023 RESULT: Lines, tubes, and devices: None. Lungs and pleura: No focal consolidation, pleural effusion or pneumothorax. Cardiomediastinal silhouette: Stable cardiomediastinal silhouette. Other: No radiopaque foreign bodies. IMPRESSION: No acute radiographic abnormality. No radiopaque foreign bodies. Recreation Facilities Supervisor: HEAVENLY Transcribe Date/Time: Apr 10 2023 2:54P Dictated by : SORIN CORONA MD This examination was interpreted and the report reviewed and electronically signed by: SORIN CORONA MD on Apr 10 2023 2:55PM EST [id number] [facility] HEALTH 01-06-2023 ALLIED HEALTH HNO ID: [id number] Author: Garland David RT(R) Service: Radiology Author Type: Technologist Type: Allied Health Filed: 01/06/2023 1:46 AM Note Text: Radiology Service Progress Note PATIENT NAME: Keke Pemberton DATE OF SERVICE: January 06, 2023 TIME: 1:45 AM PATIENT IDENTITY VERIFICATION COMPLETED USING TWO (2) IDENTIFIERS: Name and Date of confirmed by patient verbally and Name and Date of confirmed by identification band. FALL SCREENING: Has the patient had 2 falls in the last year or 1 fall with injury or currently using an Ambulatory Assistive Device (Walker, Cane, Wheelchair, Crutches, etc.)? Inpatient: Screened on floor PATIENT GENDER DATA: Male PATIENT RELEVANT IMPLANT DATA REVIEWED: Not Applicable RADIOLOGY DEPARTMENT: General X-ray: Exam(s) Completed: Abdomen X-Ray: Abdomen PERIPHERAL IV DATA: Not applicable SIGNED BY: RT Jasper(R) January 06, 2023 1:45 AM [facility] HNO ID: [id number] Author: Nathan Appiah MD Service: Hospital Medicine Author Type: Physician Type: Discharge Summary Filed: 01/06/2023 8:07 AM Note Text: DISCHARGE SUMMARY PATIENT NAME: Keke Pemberton Code Status: Prior Highest Readmission Risk Score: 16 The 30 day readmissions risk score is derived from an internally validated risk model which evaluates patient level characteristics, utilization history, medication orders and lab results up until the day of discharge. Patients with a score of 40 or above are considered highest risk for readmission. Specific patient level drivers will be listed at the bottom of the summary. Admission Information Admission Information ADMIT DATE: 01/03/2023 DISCHARGE DATE: 01/06/2023 MY DOCTORS AND MEDICAL TEAM: My Main Hospital Doctor: Nathan Appiah,* Primary Care Provider: No primary care provider on file. My Medical Team Members: Treatment Team: Attending Provider: Nathan Appiah MD Consulting: Juan Kenny MD Consulting: Herlinda Lombardo MD Consulting: Miguel Epperson MD Primary Service: PREET LANIER MY CONDITION AT DISCHARGE: Stable REASON I WAS IN THE HOSPITAL: Intentional foreign body ingestion SUMMARY OF WHAT HAPPENED WHILE I WAS IN THE HOSPITAL: 32-year-old male with history of bipolar disorder and frequent hospitalizations for foreign body ingestions. Admitted to the hospital on account of ingestion of a battery and then a metal wall paperclip. Patient was seen by gastroenterology and had an EGD with removal of the paperclip however battery had been propelled distally beyond the reach of the endoscope. Antral erosion noted and patient already on PPI therapy. Patient treated with bulk forming laxative and repeat KUBs showed battery in the pelvis and apparently in the rectosigmoid area. General surgery patient can be discharged. Patient was also seen by psychiatry and started on lithium. Continue to monitor stools for passage of battery. OTHER PROBLEMS/DIAGNOSIS: Principal Problem: Swallowed foreign body, sequela Active Problems: Foreign body in stomach Bipolar affective disorder, currently depressed, moderate (HCC) Resolved Problems: * No resolved hospital problems. * OPERATIONS PERFORMED WHILE IN THE HOSPITAL: None IMPORTANT TEST/PROCEDURES: EGD TEST RESULTS NOT AVAILABLE AT THIS TIME: No pending results Discharge Disposition Discharge Disposition: Law Enforcement Additional Provider to Provider Information: No notes on file Active Hospital Problems as of 01/06/2023 Noted - Resolved [facility] Bipolar affective disorder, currently depressed, moderate (HCC) 01/05/2023 - Present Unknown Foreign body in stomach 12/25/2022 - Present Unknown * (Principal) Swallowed foreign body, sequela 01/03/2023 - Present Yes Resolved Hospital Problems as of 01/06/2023 None Transitions of Care Critical Issues: none LABS AND PROCEDURES PENDING AT DISCHARGE: No pending results. FOLLOW-UP APPOINTMENTS ALREADY SCHEDULED WITH A [facility] PROVIDER: No future appointments. ALLERGIES No Known Allergies DISCHARGE MEDICATION: Medication List START taking these medications acetaminophen 500 mg tablet Commonly known as: TYLENOL Take 2 tablets by mouth three times daily for 3 days. lithium carbonate ER 300 mg CR tablet Take 1 tablet by mouth daily at bedtime. pantoprazole DR 40 mg tablet Commonly known as: PROTONIX Take 1 tablet by mouth DAILY (6 AM). Start taking on: January 07, 2023 polyethylene glycol 3350 17 gram packet Take 1 Packet by mouth twice daily for 3 days. Dissolve dose in 4 - 8 ounces of liquid and take as directed. sucralfate 1 gram tablet Commonly known as: CARAFATE Take 1 tablet by mouth before meals and at bedtime for 7 days. CONTINUE taking these medications traZODone 50 mg tablet Commonly known as: DESYREL STOP taking these medications busPIRone 10 mg tablet Commonly known as: BUSPAR WELLBUTRIN SR 150 mg 12 hr tablet Generic drug: buPROPion SR Where to Get Your Medications You can get these medications from any pharmacy Bring a paper prescription for each of these medications acetaminophen 500 mg tablet lithium carbonate ER 300 mg CR tablet pantoprazole DR 40 mg tablet polyethylene glycol 3350 17 gram packet sucralfate 1 gram tablet Discharge Physical Exam: VITAL SIGNS: BP 117/97 Pulse 89 Temp 36.2 ?C (97.2 ?F) (Oral) Resp 18 Ht 180.3 cm (5' 11) Wt 61.8 kg (136 lb 3.9 oz) SpO2 97% BMI 19.00 kg/m? General - AANDOx3, NAD, Calm, depressed appearing, psychomotor retardation CV - RRR S1 S2, No M/R/G RESP - CTA B/L No wheezes, ronchi, rales ABD -generalized tenderness 1+. Normal bowel sounds EXT - no gross joint deformity, no clubbing, cyanosis, edema NEURO - CN II-XII grossly intact, no focal deficits The patient's risk for 30-day readmission is determined using the (more content not included)... Normal [facility] CONSULT PROGon 01-06-2023 CONSULT PROG HNO ID: [id number] Author: Mirna Paul APRN.CNP Service: General Surgery Author Type: Nurse Practitioner Type: Consult Progress Note Filed: 01/06/2023 9:29 AM Note Text: Summary: EGS Sign OFF Emergency General Surgery Progress Note SERVICE DATE: January 06, 2023 Emergency General Surgery Service Pager: For questions or concerns Mon-Fri 6a-5p please page [phone]. After 5pm and on Weekends and Holidays, please page [phone] if in ICU or [phone] if on RNF. SUBJECTIVE: HPI: 32 year old male w/ a history of ADHD, tobacco use, who presented to to ED for foreign object ingestion. Patient is known to the medicine service for prior admission for swallowing objects when incarcerated to get out of retirement. Presented after ingesting batteries and a supposed razor blade. His CXR did not show any acute findings. KUB showed two batteries in the rectum, one in the stomach and another curvelinear object in the stomach. The patient does complain of abdominal pain with VSS. Taken for EGD with GI service 01/04, FB removed, noted mild gastritis. Psych consulted. Pt awake, lying in bed with sitter at bedside. Mr. Pemberton reports minimal pain in his abdomen, denies N/V. Has not passed a BM. Tolerating diet DIET REGULAR Nausea Yes Emesis No Flatus Yes Bowel movement Yes Pain Controlled Yes Ambulating Yes OBJECTIVE: Vitals: Temp (24hrs), Av.6 ?C (97.8 ?F), Min:36.2 ?C (97.2 ?F), Max:37 ?C (98.6 ?F) BP 117/97 Pulse 89 Temp 36.2 ?C (97.2 ?F) (Oral) Resp 18 Ht 180.3 cm (5' 11) Wt 61.8 kg (136 lb 3.9 oz) SpO2 97% BMI 19.00 kg/m? O2 Therapy: Room Air IANDO: Date 01/05/23 07 - 01/06/23 0659 01/06/23 07 - 01/07/23 0659 Shift 7558-1090 1040-8128 1114-0903 24 Hour Total 3216-5994 9412-7139 8032-0660 24 Hour Total INTAKE PO 360 240 600 480 480 PO 360 240 600 480 480 Shift Total 360 240 600 480 480 OUTPUT Urine Urine Not Saved. 3 x 1 x 4 x # of BMs Number of BMs 1 x 1 x Shift Total Weight (kg) 61.8 61.8 61.8 61.8 61.8 61.8 61.8 61.8 MEDICATIONS Current Facility-Administere d Medications Medication Dose Route Frequency pantoprazole DR 40 mg tab(s) (PROTONIX) 40 mg ORAL DAILY (6 AM) oxyCODONE IR 5 mg tab(s) (ROXICODONE) 5 mg ORAL q 8 H PRN acetaminophen 1,000 mg tab(s) (TYLENOL) 1,000 mg ORAL TID lithium carbonate ER 300 mg tab(s) 300 mg ORAL AT BEDTIME traZODone 25 mg tab(s) (DESYREL) 25 mg ORAL AT BEDTIME PRN polyethylene glycol 3350 17 g packet 17 g ORAL BID nicotine polacrilex 2 mg gum (NICORETTE) 2 mg ORAL q 2 H PRN nicotine 14 mg/24 hr 1 Patch (NICODERM) 1 Patch TRANSDERMAL DAILY And nicotine -- REMOVE patch OTHER DAILY And nicotine - verify patch OTHER q 8 H sucralfate 1 g tab(s) (CARAFATE) 1 g ORAL AC and HS aluminum-magnesium hydroxide-simethicon e 200-200-20 mg/5 mL 30 mL 30 mL ORAL q 6 H PRN benzocaine-menthol 1 Lozenge (CEPACOL) 1 Lozenge MUCOUS MEMBRANE (TOPICAL MOUTH AND THROAT) q 2 H PRN guaiFENesin 600 mg ER tab(s) (MUCINEX) 600 mg ORAL q 12 H PRN melatonin 3 mg tab(s) 3 mg ORAL AT BEDTIME PRN ondansetron (PF) 4 mg injection (ZOFRAN) 4 mg INTRAVENOUS q 6 H PRN docusate sodium 100 mg cap(s) (COLACE) 100 mg ORAL BID PRN polyvinyl alcohol-povidone 1.4-0.6 % 1 Drop (REFRESH) 1 Drop BOTH EYES PRN saliva substitute combo no.9 15 mL (BIOTENE mouthwash) 15 mL MUCOUS MEMBRANE (TOPICAL MOUTH AND THROAT) TID PRN sodium chloride 0.65 % 2 Coal Run 2 Coal Run EACH NOSTRIL PRN prochlorperazine 10 mg injection (COMPAZINE) 10 mg INTRAVENOUS q 6 H PRN NaCl 0.9% iv flush bag 20 mL INTRAVENOUS PRN Labs: Recent Labs 01/05/23 0611 NA 142 K 3.8 CHLOR 106* CO2 25 BUN 9 CREAT 0.74 GLUC 91 ANION 11 CA 8.9 ALB 4.1 AST 17 ALT 37 ALKPHOS 100 TBILI 0.2 WBC 13.38* HB 13.6 HCT 40.7 PLT 206 Physical Exam: GENERAL: No distress, Alert NEURO: AANDOx3, CN II-XII grossly intact HEENT: normocephalic, atraumatic LUNGS: Unlabored breathing, equal chest rise bilaterally CARDIAC: Regular rate, warm and well perfused distal extremities ABDOMEN: Soft, minimal TTP L abdomen/lower abdomen, non-distended EXTREMITIES: FROST, No deformities, No edema SKIN: Skin color, texture, turgor normal, No rashes or lesions ASSESSMENT AND PLAN: Assessment Active Hospital Problems Diagnosis Date Noted Swallowed foreign body, sequela 01/03/2023 Bipolar affective disorder, currently depressed, moderate (HCC) 01/05/2023 Foreign body in stomach 12/25/2022 Assessment: 32 year old male with ingestion of FB: battery, possible razor Hospital Course/Operations/Pr ocedures: 01/04/2023 Procedure(s): EGD WITH REMOVAL FOREIGN BODY Plan: S/p EGD per GI on 01/04 with removal of FB - Regular diet - Monitor BMs - hat in toilet - Daily KUB recommended - KUB early am w/ noted b (more content not included)... Normal [facility] XR ABDOMEN 1V SUPINEon 01-06 XR ABDOMEN 1V SUPINE * * *Final Report* * * DATE OF EXAM: Jan 06 2023 1:44AM MICHAEL 5289 - XR ABDOMEN 1V SUPINE / PROCEDURE REASON: Post-operative / post-procedure assessment, asymptomatic * * * * Physician Interpretation * * * * EXAM TITLE: XR ABDOMEN 1V SUPINE DATE: 01/06/2023 COMPARISON: Previous studies including 01/05/2023 CLINICAL INDICATION/HISTORY: Foreign body TECHNIQUE: AP views of the abdomen FINDINGS: Previously noted cylindrical shaped radiopaque foreign body is again noted, projecting at the midline of the mid to lower pelvis. Difficult to determine on this single view of this form body resides within small bowel or distal colon. No other foreign body is visualized. Moderate diffuse colonic stool. No acute bony abnormality. IMPRESSION: The known foreign body projects at the midline of the mid to lower pelvis, possibly within small bowel distal colon. Recreation Facilities Supervisor: PSCB Transcribe Date/Time: Jan 07 2023 7:08A Dictated by : ANGEL MOLINA MD This examination was interpreted and the report reviewed and electronically signed by: ANGEL MOLINA MD on Jan 07 2023 7:11AM EST [id number] Normal [facility] CBC W Auto Differential pane l (Bld)on 01-05-2023 Basophils (Bld) [#/Vol] 0.04 10*3/uL Normal <0.11 [facility] Comment on above: Order Comment: Speci men Type: BLOOD SPECIMEN Ordering Facility: [facility] Address: [address] [address] Performed By: #### 4 024-6, 5643-2, 3297-10 #### [facility] CLIA [id number] [address] STATES OF [facility] Basophils/100 WBC (Bld) 0.3 % Normal A [facility] Comment on above: Order Comment: Speci men Type: BLOOD SPECIMEN Ordering Facility: [facility] Address: [address] [address] Performed By: #### 4 024-6, 5643-2, 7 #### [facility] CLIA [id number] [address] OF [facility] Differential cell count method Nom (Bld) Auto Normal [facility] Comment on above: Order Comment: Speci men Type: BLOOD SPECIMEN Ordering Facility: [facility] Address: [address] [address] Performed By: #### 4 024-6, 5643-2, 7 #### [facility] CLIA [id number] [address] [place] [address] [place] Eosinophils (Bld) [#/Vol] 0.07 10*3/uL Normal <0.46 [facility] Comment on above: Order Comment: Speci men Type: BLOOD SPECIMEN Ordering Facility: [facility] Address: [address] [place] [address] Performed By: #### 4 024-6, 5643-2, 3297-10 #### [facility] CLIA [id number] [address] [place] Eosinophils/100 WBC (Bld) 0.5 % Normal [facility] Comment on above: Order Comment: Speci men Type: BLOOD SPECIMEN Ordering Facility: [facility] Address: [address] [place] [address] Performed By: #### 4 024-6, 5643-2, 3297-10 #### [facility] CLIA [id number] [address] [place] [address] [place] Erythrocyte distribution width (RBC) [Ratio] 14.4 % Normal 11.5-15.0 [facility] Comment on above: Order Comment: Speci men Type: BLOOD SPECIMEN Ordering Facility: [facility] Address: [address] [place] [address] Performed By: #### 4 024-6, 5643-2, 3297-10 #### [facility] CLIA [id number] [address] [place] Hematocrit (Bld) [Volume fraction] 40.7 % Normal 39.0-51.0 [facility] Comment on above: Order Comment: Speci men Type: BLOOD SPECIMEN Ordering Facility: [facility] Address: [address] [place] [address] Performed By: #### 4 024-6, 5643-2, 3297-10 #### [facility] CLIA [id number] [address] [place] [address] [place] Hemoglobin (Bld) [Mass/Vol] 13.6 g/dL Normal 13.0-17.0 [facility] Comment on above: Order Comment: Speci men Type: BLOOD SPECIMEN Ordering Facility: [facility] Address: [address] [place] [address] Performed By: #### 4 024-6, 5643-2, 7 #### [facility] CLIA [id number] [address] [place] [address] [place] Immature granulocytes (Bld) [#/Vol] 0.07 10*3/uL Normal <0.10 [facility] Comment on above: Order Comment: Speci men Type: BLOOD SPECIMEN Ordering Facility: [facility] Address: [address] [place] [address] Performed By: #### 4 024-6, 5643-2, 7 #### [facility] CLIA [id number] [address] [place] [address] [place] Immature granulocytes/100 WBC (Bld) 0.5 % Normal [facility] Comment on above: Order Comment: Speci men Type: BLOOD SPECIMEN Ordering Facility: [facility] Address: [address] [place] [address] Performed By: #### 4 024-6, 5643-2, 7 #### [facility] CLIA [id number] [address] [place] [address] [place] Lymphocytes (Bld) [#/Vol] 3.22 10*3/uL Normal 1.00-4.00 [facility] Comment on above: Order Comment: Speci men Type: BLOOD SPECIMEN Ordering Facility: [facility] Address: [address] [place] [address] Performed By: #### 4 024-6, 5643-2, 7 #### [facility] CLIA [id number] [address] [place] [address] [place] Lymphocytes/100 WBC (Bld) 24.1 % Normal [facility] Comment on above: Order Comment: Speci men Type: BLOOD SPECIMEN Ordering Facility: [facility] Address: [address] [place] [address] Performed By: #### 4 024-6, 5643-2, 7 #### [facility] CLIA [id number] [address] [place] [address] [place] MCH (RBC) [Entitic mass] 29.8 pg Normal 26.0-34.0 [facility] Comment on above: Order Comment: Speci men Type: BLOOD SPECIMEN Ordering Facility: [facility] Address: [address] [place] [address] Performed By: #### 4 024-6, 5643-2, 32912-02 #### [facility] CLIA [id number] [address] [place] [address] [place] MCHC (RBC) [Mass/Vol] 33.4 g/dL Normal 30.5-36.0 [facility] Comment on above: Order Comment: Speci men Type: BLOOD SPECIMEN Ordering Facility: [facility] Address: [address] [place] [address] Performed By: #### 4 024-6, 5643-2, 3297-10 #### [facility] CLIA [id number] [address] [place] [address] [place] MCV (RBC) [Entitic vol] 89.3 fL Normal 80.0-100.0 [facility] Comment on above: Order Comment: Speci men Type: BLOOD SPECIMEN Ordering Facility: [facility] Address: [address] [place] [address] Performed By: #### 4 024-6, 5643-2, 3297 #### [facility] CLIA [id number] [address] [place] [address] [place] Monocytes (Bld) [#/Vol] 1.15 10*3/uL High <0.87 [facility] Comment on above: Order Comment: Speci men Type: BLOOD SPECIMEN Ordering Facility: [facility] Address: [address] [place], [place] [address] Performed By: #### 4 024-6, 5643-2, 3297-10 #### [facility] CLIA [id number] [address] [place] [address] [facility] Monocytes/100 WBC (Bld) 8.6 % Normal A [facility] Comment on above: Order Comment: Speci men Type: BLOOD SPECIMEN Ordering Facility: [facility] Address: [address] Performed By: #### 4 024-6, 5643-2, 3297-10 #### [facility] CLIA [id number] [address] [place] Neutrophils (Bld) [#/Vol] 8.83 10*3/uL High 1.45-7.50 [facility] Comment on above: Order Comment: Speci men Type: BLOOD SPECIMEN Ordering Facility: [facility] Address: [address] [address] Performed By: #### 4 024-6, 5642-2, 3297-10 #### [facility] CLIA [id number] [address] Neutrophils/100 WBC (Bld) 66.0 % Normal [facility] Comment on above: Order Comment: Speci men Type: BLOOD SPECIMEN Ordering Facility: [facility] Address: [address] Performed By: #### 4 024-6, 5643-2, 3297-10 #### [facility] CLIA [id number] [address] [place] [address] [facility] [place] Nucleated RBC (Bld) [#/Vol] 10*3/uL Normal <0.01 [facility] Comment on above: Order Comment: Speci men Type: BLOOD SPECIMEN Ordering Facility: [facility] Address: [address] [address] Performed By: #### 4 024-6, 5643-2, 3297-10 #### [facility] CLIA [id number] [address] [place] [address] [place] Nucleated RBC/100 WBC (Bld) [Ratio] 0.0 /100 WBC Normal [facility] Comment on above: Order Comment: Speci men Type: BLOOD SPECIMEN Ordering Facility: [facility] Address: [address] [place] [address] Performed By: #### 4 024-6, 5643-2, 3298-7 #### [facility] CLIA [id number] [address] [place] [address] [place] Platelet mean volume (Bld) [Entitic vol] 9.3 fL Normal 9.0-12.7 [facility] Comment on above: Order Comment: Speci men Type: BLOOD SPECIMEN Ordering Facility: [facility] Address: [address] [place] [address] Performed By: #### 4 024-6, 5643-2, 7 #### [facility] CLIA [id number] [address] [place] [address] [place] Platelets (Bld) [#/Vol] 206 10*3/uL Normal 150-400 [facility] Comment on above: Order Comment: Speci men Type: BLOOD SPECIMEN Ordering Facility: [facility] Address: [address] [place] [address] Performed By: #### 4 024-6, 5643-2, 3297 #### [facility] CLIA [id number] [address] [place] [address] [place] RBC (Bld) [#/Vol] 4.56 10*6/uL Normal 4.20-6.00 [facility] Comment on above: Order Comment: Speci men Type: BLOOD SPECIMEN Ordering Facility: [facility] Address: [address] [place] [address] Performed By: #### 4 024-6, 5643-2, 3298-7 #### [facility] CLIA [id number] [address] [place] [address] [place] WBC (Bld) [#/Vol] 13.38 10*3/uL High 3.70-11.00 [facility] Comment on above: Order Comment: Speci men Type: BLOOD SPECIMEN Ordering Facility: [facility] Address: [place] [address] Performed By: #### 4 024-6, 5643-2, 3298-7 #### [facility] CLIA [id number] [address] [place] [address] [facility] CONSULTon 01-05-2023 CONSULT HNO ID: [id number] Author: Renetta Flores MD Service: Psychiatry Author Type: Physician Type: Consults Filed: 01/05/2023 1:40 PM Note Text: CL NEW - PSYCHIATRY INITIAL CONSULTATION NOTE To get ahold of service: DAY TIME COVERAGE: Between 8AM to 5PM, contact Katie Sow CNP, Dr. Kenny, or Trupti Garcia CNP. See [facility] directory for numbers NIGHT, WEEKEND, AND HOLIDAY COVERAGE: After hours (5PM to 8AM), holidays AND weekends, call answering service at [phone] SERVICE DATE: January 05, 2023 SERVICE TIME: 1147 CONSULTING SERVICE : Psychiatry, requested by Dr. Appiah, Nathan Stephenson,*'s team REASON FOR CONSULTATION: Patient request, continues to swallow objects. IDENTIFYING INFO: Mr. Pemberton is a 32 year old male from [place], [place]. HISTORY OF PRESENT ILLNESS : Mr. Pemberton is a 32 year old male with a reported psychiatric history of ADHD who presented from retirement after reportedly swallowing batteries and a razor blade. Patient denied self-harm intent. Per chart review, patient swallows objects to get out of retirement. This is his 6th hospital visit in EMR for ingestion of foreign object in last 3 months. Patient states he does not know why he does this and asked to see psychiatry. Today, the patient states he has been having increasing suicidal ideation over the past few weeks initially, then later stated that it has been present for a few months. He reports only ideation and denies intent. He states it is due to his PTSD after he found his sister after she of fentayl overdose one year ago. He notes flashbacks 2x/month, but denies other symptoms of PTSD. Patient states being around the water is what triggers his anxiety, as he found his sister in the bathtub. Patient asks to be restarted on his home medications of Wellbutrin and Ativan. He reports a past history of bipolar disorder, and states that he was previously prescribed those medications prior to being in retirement. However he is unable to state the name of the psychiatrist he was seeing, and the name of the office. Patient becomes upset when he was told we would not prescribe his Wellbutrin or Ativan, as those are not indicated and bipolar disorder. Patient is fixated on those medications. Patient then got further upset when he was asked if he had ever been on medications which are indicated for bipolar disorder, such as Depakote or lithium. Patient was offered lithium, and expressed frustration over that, and initially denied it. He then asked for Seroquel. Eventually patient accepted lithium. PSYCHIATRIC HISTORY: Diagnoses: Bipolar, ADHD, Current Psychiatrist: previously [facility] child psychiatry, unsure who was last reportedly prescribing him psychiatric med, and it appears he is lying Current Therapist: None Psychiatric Hospitalization(s): None History of Suicide Attempts: Reports hx of ingestion of alcohol and xanax 2 years ago Previous Psychiatric Medication Trials: none Current Outpatient Psychiatric Medications: none PSYCHIATRIC REVIEW OF SYMPTOMS: Depression: + Depressed mood and + Sleep disturbance with positive suicidal ideation (denies) Angela: Reports history of bipolar disorder, but denies any symptoms of angela Psychosis: Denies any auditory / visual hallucination or paranoid ideation. VARSHA: Excessive worry more than not and Difficulty controlling worry Panic: Denies any symptoms of panic. OCD: Denies any symptoms of OCD. PTSD: Experienced/witnesse d trauma that threatened one's integrity. The remainder was reviewed and unremarkable. SUBSTANCE ABUSE HISTORY: Substance abuse history questions were not asked, due to patient's increasing agitation prior to arriving at this part of the interview SOCIAL HISTORY: Social history questions were not asked, due to patient's increasing agitation prior to arriving at this part of the interview COLLATERAL INFORMATION: Will plan to contact family as needed. FAMILY PSYCHIATRIC HISTORY: None FAMILY HISTORY Problem Relation Age of Onset Cancer Mother Heart Father PAST MEDICAL HISTORY Diagnosis Date ADHD (attention deficit hyperactivity disorder) PAST SURGICAL HISTORY Procedure Laterality Date NONE Current Facility-Administere d Medications Medication Dose Route Frequency nicotine 14 mg/24 hr 1 Patch (NICODERM) 1 Patch TRANSDERMAL DAILY And [START ON 01/05/2023] nicotine -- REMOVE patch OTHER DAILY And nicotine - verify patch OTHER q 8 H NaCl 0.9% iv flush bag 20 mL INTRAVENOUS PRN NaCl 0.9% iv infusion 75 mL/hr INTRAVENOUS CONTINUOUS morphine 2 mg injection 2 mg INTRAVENOUS q 4 H PRN ALLERGIES No Known Allergies MEDICAL REVIEW OF SYSTEMS: Patient was in no acute physical distress during this encounter. Please see the primary medical team's note for a full medical ROS. MENTAL STATUS EXAMINATION: Appearance: In hospital gown, well groomed, good eye contact, Behavior: Engaged readily, manipulative (more content not included)... Normal [facility] CONSULT PROGon 01-05-2023 CONSULT PROG HNO ID: [id number] Author: Jenna Sousa MD Service: General Surgery Author Type: Physician Type: Consult Progress Note Filed: 01/05/2023 9:40 PM Note Text: Emergency General Surgery Progress Note SERVICE DATE: January 05, 2023 Emergency General Surgery Service Pager: For questions or concerns Mon-Fri 6a-5p please page [phone]. After 5pm and on Weekends and Holidays, please page [phone] if in ICU or [phone] if on RNF. SUBJECTIVE: HPI: 32 year old male w/ a history of ADHD, tobacco use, who presented to to ED for foreign object ingestion. Patient is known to the medicine service for prior admission for swallowing objects when incarcerated to get out of retirement. Presented after ingesting batteries and a supposed razor blade. His CXR did not show any acute findings. KUB showed two batteries in the rectum, one in the stomach and another curvelinear object in the stomach. The patient does complain of abdominal pain with VSS. Taken for EGD with GI service 01/04, FB removed, noted mild gastritis. Psych consulted. Pt sts pain in L abdomen and across lower abdomen. Abdomen flat, soft/nondistended. Sts intermittent nausea, no vomiting. Sts you know I have an ulcer. Discussed PPI advised by GI. Cheryl. Communication order to Nursing for hat in toilet.Continues to have nonbloody BMs. Tolerating diet DIET REGULAR Nausea Yes Emesis No Flatus Yes Bowel movement Yes Pain Controlled Yes Ambulating Yes OBJECTIVE: Vitals: Temp (24hrs), Av.3 ?C (97.4 ?F), Min:36 ?C (96.8 ?F), Max:37 ?C (98.6 ?F) BP 111/76 Pulse 85 Temp 37 ?C (98.6 ?F) (Oral) Resp 15 Ht 180.3 cm (5' 11) Wt 61.8 kg (136 lb 3.9 oz) SpO2 99% BMI 19.00 kg/m? O2 Therapy: Room Air IANDO: Date 01/04/23699 - 01/05/2365801/05/23699 - 01/06/23 0659 Shift 3398-3704 0831-5349 3799-3041 24 Hour Total 1534-1180 3481-6849 0698-7637 24 Hour Total INTAKE IV 500 500 Volume (mL) (lactated ringers iv infusion) 500 500 Shift Total 500 500 OUTPUT Urine Urine Not Saved. 1 x 1 x 2 x Shift Total Weight (kg) 61.8 61.8 61.8 61.8 61.8 61.8 61.8 61.8 MEDICATIONS Current Facility-Administere d Medications Medication Dose Route Frequency nicotine 14 mg/24 hr 1 Patch (NICODERM) 1 Patch TRANSDERMAL DAILY And nicotine -- REMOVE patch OTHER DAILY And nicotine - verify patch OTHER q 8 H buPROPion SR 150 mg tab(s) (ZYBAN SR; WELLBUTRIN SR) 150 mg ORAL BID traZODone 50 mg tab(s) (DESYREL) 50 mg ORAL AT BEDTIME busPIRone (BUSPAR) tab(s) 15 mg 15 mg ORAL BID sucralfate 1 g tab(s) (CARAFATE) 1 g ORAL AC and HS psyllium 1 Packet (METAMUCIL) 1 Packet ORAL BID acetaminophen 650 mg tab(s) (TYLENOL) 650 mg ORAL q 4 H PRN aluminum-magnesium hydroxide-simethicon e 200-200-20 mg/5 mL 30 mL 30 mL ORAL q 6 H PRN benzocaine-menthol 1 Lozenge (CEPACOL) 1 Lozenge MUCOUS MEMBRANE (TOPICAL MOUTH AND THROAT) q 2 H PRN guaiFENesin 600 mg ER tab(s) (MUCINEX) 600 mg ORAL q 12 H PRN melatonin 3 mg tab(s) 3 mg ORAL AT BEDTIME PRN ondansetron (PF) 4 mg injection (ZOFRAN) 4 mg INTRAVENOUS q 6 H PRN polyethylene glycol 3350 17 g packet 17 g ORAL DAILY PRN docusate sodium 100 mg cap(s) (COLACE) 100 mg ORAL BID PRN polyvinyl alcohol-povidone 1.4-0.6 % 1 Drop (REFRESH) 1 Drop BOTH EYES PRN saliva substitute combo no.9 15 mL (BIOTENE mouthwash) 15 mL MUCOUS MEMBRANE (TOPICAL MOUTH AND THROAT) TID PRN sodium chloride 0.65 % 2 [place] Run 2 [place] Run EACH NOSTRIL PRN prochlorperazine 10 mg injection (COMPAZINE) 10 mg INTRAVENOUS q 6 H PRN NaCl 0.9% iv flush bag 20 mL INTRAVENOUS PRN Labs: Recent Labs 01/05/23 0611 NA 142 K 3.8 CHLOR 106* CO2 25 BUN 9 CREAT 0.74 GLUC 91 ANION 11 CA 8.9 ALB 4.1 AST 17 ALT 37 ALKPHOS 100 TBILI 0.2 WBC 13.38* HB 13.6 HCT 40.7 PLT 206 Physical Exam: GENERAL: No distress, Alert NEURO: AANDOx3, CN II-XII grossly intact HEENT: normocephalic, atraumatic LUNGS: Unlabored breathing, equal chest rise bilaterally CARDIAC: Regular rate, warm and well perfused distal extremities ABDOMEN: Soft, minimal TTP L abdomen/lower abdomen, non-distended EXTREMITIES: FROST, No deformities, No edema SKIN: Skin color, texture, turgor normal, No rashes or lesions ASSESSMENT AND PLAN: Assessment Active Hospital Problems Diagnosis Date Noted Swallowed foreign body, sequela 01/03/2023 Foreign body in stomach 12/25/2022 Assessment: 32 year old male with ingestion of FB: battery, possible razor Hospital Course/Operations/Pr ocedures: 01/04/2023 Procedure(s): EGD WITH REMOVAL FOREIGN BODY Plan: S/p EGD per GI on 01/04 with removal of FB - Regular diet - Monitor abdominal exam closely - Monitor BMs - hat in toilet - Daily KUB recommended - PPI per GI - Hold VTE ppx Discussed with attending: Dr. Sousa Follow up needs: TBD SIGNATURE: Cece Abdi APRN.HEALTHCARE EDUCATOR PATIENT NAME: Keke Pemberton DATE: January 05, 2023 TIME: 08 Pager: [phone] Emergency Gene (more content not included)... Normal [facility] Comprehensive metabolic 2000 panelon 01-05-2023 Albumin [Mass/Vol] 4.1 g/dL Normal 3.9-4.9 [facility] Comment on above: Order Comment: Speci men Type: BLOOD SPECIMEN Ordering Facility: [facility] Address: [address] [place] [address] Performed By: #### 4 024-6, 5643-2, 3297 #### [facility] CLIA [id number] [address] [place] [address] [place] ALP [Catalytic activity/Vol] 100 U/L Normal 38-113 [facility] Comment on above: Order Comment: Speci men Type: BLOOD SPECIMEN Ordering Facility: [facility] Address: [address] [place] [address] Performed By: #### 4 024-6, 5643-2, 7 #### [facility] CLIA [id number] [address] [place] [address] [place] ALT With P-5'-P [Catalytic activity/Vol] 37 U/L Normal 10-54 [facility] Comment on above: Order Comment: Speci men Type: BLOOD SPECIMEN Ordering Facility: [facility] Address: [address] [place] [address] Performed By: #### 4 024-6, 5643-2, 7 #### [facility] CLIA [id number] [address] [place] [address] [place] Anion gap [Moles/Vol] 11 mmol/L Normal 9-18 [facility] Comment on above: Order Comment: Speci men Type: BLOOD SPECIMEN Ordering Facility: [facility] Address: [address] [place] [address] Performed By: #### 4 024-6, 5643-2, 3298-7 #### [facility] CLIA [id number] [address] [place] [address] [place] AST With P-5'-P [Catalytic activity/Vol] 17 U/L Normal 14-40 [facility] Comment on above: Order Comment: Speci men Type: BLOOD SPECIMEN Ordering Facility: [facility] Address: [address] [place] [address] Performed By: #### 4 024-6, 5643-2, 329-7 #### [facility] CLIA [id number] [address] [place] [address] [place] Bilirubin [Mass/Vol] 0.2 mg/dL Normal 0.2-1.3 [facility] Comment on above: Order Comment: Speci men Type: BLOOD SPECIMEN Ordering Facility: [facility] Address: [address] [place] [address] Performed By: #### 4 024-6, 5643-2, 3297 #### [facility] CLIA [id number] [address] [place] [address] [place] Calcium [Mass/Vol] 8.9 mg/dL Normal 8.5-10.2 [facility] Comment on above: Order Comment: Speci men Type: BLOOD SPECIMEN Ordering Facility: [facility] Address: [address] [place] [address] Performed By: #### 4 024-6, 5643-2, 7 #### [facility] CLIA [id number] [address] [place] [address] [place] Chloride [Moles/Vol] 106 mmol/L High 97-105 [facility] Comment on above: Order Comment: Speci men Type: BLOOD SPECIMEN Ordering Facility: [facility] Address: [address] [place] [address] Performed By: #### 4 024-6, 5643-2, 7 #### [facility] CLIA [id number] [address] [place] [address] [place] CO2 [Moles/Vol] 25 mmol/L Normal 22-30 [facility] Comment on above: Order Comment: Yeyo velasquez Type: BLOOD SPECIMEN Ordering Facility: [facility] Address: [address] [address] Performed By: #### 4 024-6, 5643-2, 3297 #### [facility] CLIA [id number] [address] [place] [address] [place] Creatinine [Mass/Vol] 0.74 mg/dL Normal 0.73-1.22 [facility] Comment on above: Order Comment: Speceli men Type: BLOOD SPECIMEN Ordering Facility: [facility] Address: [address] [address] Performed By: #### 4 024-6, 5643-2, 3297-10 #### [facility] CLIA [id number] [address] [place] [address] [place] Creatinine and Glomerular filtration rate.predicted panel (S/P/Bld) 123 mL/min/1.73m??? Normal >=60 [facility] Comment on above: Order Comment: Yeyo velasquez Type: BLOOD SPECIMEN Ordering Facility: [facility] Address: [address] [address] Result Comment: Erica mated Glomerular Filtration Rate (eGFR) is calculated using the 2020 CKD-EPI creatinine equation. This equation utilizes serum creatinine, sex, and age as parameters. The creatinine assay has traceable calibration to isotope dilution-mass spectrometry. Refer to KDIGO guidelines for clinical interpretation. In patients with unstable renal function, e.g. those with acute kidney injury, the eGFR may not accurately reflect actual GFR. Performed By: #### 4 024-6, 5643-2, 7 #### [facility] CLIA [id number] [address] [place] [address] [place] Glucose [Mass/Vol] 91 mg/dL Normal 74-99 [facility] Comment on above: Order Comment: Yeyo eva Type: BLOOD SPECIMEN Ordering Facility: [facility] Address: [address] [address] Result Comment: The [place] Diabetes Association (ADA) provides guidance for cutoff values for fasting glucose and random glucose. The ADA defines fasting as no caloric intake for at least 8 hours. Fasting plasma glucose results between 100 to 125 mg/dL indicate increased risk for diabetes (prediabetes). Fasting plasma glucose results greater than or equal to 126 mg/dL meet the criteria for diagnosis of diabetes. In the absence of unequivocal hyperglycemia, results should be confirmed by repeat testing. In a patient with classic symptoms of hyperglycemia or hyperglycemic crisis, random plasma glucose results greater than or equal to 200 mg/dL meet the criteria for diagnosis of diabetes. Reference: Standards of Medical Care in Diabetes 2016, [place] Diabetes Association. Diabetes Care. 2016.39(Suppl 1). Performed By: #### 4 024-6, 5643-2, 32987 #### [facility] CLIA [id number] [address] [place] [address] [place] Potassium [Moles/Vol] 3.8 mmol/L Normal 3.7-5.1 [facility] Comment on above: Order Comment: Yeyo velasquez Type: BLOOD SPECIMEN Ordering Facility: [facility] Address: [address] [place] [address] Performed By: #### 4 024-6, 5643-2, 7 #### [facility] CLIA [id number] [address] [place] [address] [place] Protein [Mass/Vol] 6.2 g/dL Low 6.3-8.0 [facility] Comment on above: Order Comment: Yeyo velasquez Type: BLOOD SPECIMEN Ordering Facility: [facility] Address: [address] [address] Performed By: #### 4 024-6, 5643-2, 7 #### [facility] CLIA [id number] [address] [place] [address] [place] Sodium [Moles/Vol] 142 mmol/L Normal 136-144 [facility] Comment on above: Order Comment: Yeyo velasquez Type: BLOOD SPECIMEN Ordering Facility: [facility] Address: [address] [address] Performed By: #### 4 024-6, 5643-2, 3297 #### [facility] CLIA [id number] [address] [place] [address] [place] Urea nitrogen [Mass/Vol] 9 mg/dL Normal 9-24 [facility] Comment on above: Order Comment: Speci men Type: BLOOD SPECIMEN Ordering Facility: [facility] Address: [address] [place] [address] Performed By: #### 4 024-6, 5643-2, 3298-7 #### [facility] CLIA [id number] [address] [place] [address] [facility] NURSING PROGon 01-05-2023 NURSING PROG HNO ID: [id number] Author: Mirna Box, RN Service: Nursing Author Type: Registered Nurse Type: Nursing Progress Note Filed: 01/05/2023 7:42 PM Note Text: 1800: pt had formed medium BM, no battery noted in it. If pt is discharged tomorrow to call [place] police, ask for [facility] :[phone] Normal [facility] NURSING PROG HNO ID: [id number] Author: Aggie Wan, DEMARCO Service: ? Author Type: Registered Nurse Type: Nursing Progress Note Filed: 01/04/2023 10:55 PM Note Text: Pt refusing IV fluids. Pt states IV hurts and is burning. This RN offered to change IV site and pt still refusing. Pt educated on reason for IV fluids and he continued to refuse. Will re attempt in AM. DAMARIS Russell notified. Normal [facility] XR ABDOMEN 1V SUPINEon 01-05 XR ABDOMEN 1V SUPINE * * *Final Report* * * DATE OF EXAM: Jan 05 2023 7:31AM AKX [id number] - XR ABDOMEN 1V SUPINE / PROCEDURE REASON: Foreign body in alimentary tract * * * * Physician Interpretation * * * * Abdomen supine: HISTORY: Indication: Foreign body in alimentary tract TECHNIQUE: Views obtained: XR ABDOMEN 1V SUPINE Comparison: 01/04/2023 and 01/03/2023. RESULT/ impression: Rectangular radiopaque density which was originally seen at the level stomach is now seen in left side of the pelvic cavity either in the small bowel or distal colon. Wire-shaped opaque foreign body seen previously is no longer seen. Nonspecific gas pattern [employer] Facilities Supervisor: HEAVENLY Transcribe Date/Time: Jan 05 2023 8:12A Dictated by : DMITRY PUGA MD This examination was interpreted and the report reviewed and electronically signed by: DMITRY PUGA MD on Jan 05 2023 8:13AM EST [id number] [facility] HNO ID: [id number] Author: Sabrina Alas RT(R) Service: Radiology Author Type: [employer] Supervisor Type: Allied Health Filed: 01/04/2023 10:44 AM Note Text: Radiology Service Progress Note PATIENT NAME: Keke Pemberton DATE OF SERVICE: January 04, 2023 TIME: 10:44 AM PATIENT IDENTITY VERIFICATION COMPLETED USING TWO (2) IDENTIFIERS: Name and Date of confirmed by patient verbally and Name and Date of confirmed by identification band. FALL SCREENING: Has the patient had 2 falls in the last year or 1 fall with injury or currently using an Ambulatory Assistive Device (Walker, Cane, Wheelchair, Crutches, etc.)? Inpatient: Screened on floor PATIENT GENDER DATA: Male PATIENT RELEVANT IMPLANT DATA REVIEWED: Not Applicable RADIOLOGY DEPARTMENT: General X-ray: Exam(s) Completed: Abdomen X-Ray: Abdomen PERIPHERAL IV DATA: Not applicable SIGNED BY: RT Luciano(R) January 04, 2023 10:44 AM [facility] HNO ID: [id number] Author: Phyllis Velarde RT(R) Service: ? Author Type: [employer] Supervisor Type: Allied Health Filed: 01/04/2023 12:07 AM Note Text: Radiology Service Progress Note PATIENT NAME: Keke Pemberton DATE OF SERVICE: January 04, 2023 TIME: 12:07 AM PATIENT IDENTITY VERIFICATION COMPLETED USING TWO (2) IDENTIFIERS: Name and Date of confirmed by patient verbally and Name and Date of confirmed by identification band. FALL SCREENING: Has the patient had 2 falls in the last year or 1 fall with injury or currently using an Ambulatory Assistive Device (Walker, Cane, Wheelchair, Crutches, etc.)? Inpatient: Screened on floor PATIENT GENDER DATA: Male PATIENT RELEVANT IMPLANT DATA REVIEWED: Not Applicable RADIOLOGY DEPARTMENT: General X-ray: Exam(s) Completed: Chest X-Ray Abdomen X-Ray: Abdomen PERIPHERAL IV DATA: Not applicable SIGNED BY: tom mckinney RT(R) January 04, 2023 12:07 AM Normal [facility] ANES POSTPROC EVALon 023 ANES POSTPROC EVAL HNO ID: [id number] Author: Sen Ramirez MD Service: Anesthesiology Author Type: Physician Type: Anesthesia Postprocedure Evaluation Filed: 01/04/2023 5:56 PM Note Text: POST ANESTHESIA EVALUATION NOTE : 1990 Procedure Summary Date: 01/04/23 Room / Location: PA OR / PA OR Anesthesia Start: 1258 Anesthesia Stop: 1328 Procedure: EGD WITH REMOVAL FOREIGN BODY (Abdomen) Diagnosis: Foreign body in esophagus, initial encounter (Foreign body in esophagus, initial encounter [T18.108A]) Surgeons: Angel Braun MD Responsible Provider: Sen Ramirez MD Anesthesia Type: general ASA Status: 2 Anesthesia Type: general Airway Type: ETT Last Vitals Vitals Value Taken Time BP 111/78 01/04/23 1400 Temp 36 ?C (96.8 ?F) 01/04/23 1345 HR SpO2 81 01/04/23 1400 Resp 16 01/04/23 1400 SpO2 100 % 01/04/23 1400 Post Anesthesia Patient Status Patient Evaluation: PACU. PACU/ICU Patient Condition: stable. Neurological Status: aware and responsive. Pulmonary Status: breathing comfortably on room air Airway Control: returned to baseline unsupported. Cardiovascular Status: stable. Pain Management: clinically adequate Postoperative Hydration: acceptable. Intraoperative Events: no significant anesthesia events Post Operative Nausea/Vomiting Status: no significant post operative nausea or vomiting Recommendation: continue current plan of care. Anesthesia Observations No Documentation SIGNATURE: Sen Ramirez MD PATIENT NAME: Keke Pemberton DATE: January 04, 2023 TIME: 5:56 PM CSN: [id number] Normal [facility] ANES PRE-OPon 01-04-2023 ANES PRE-OP HNO ID: [id number] Author: Sen Ramirez MD Service: Anesthesiology Author Type: Physician Type: Anesthesia Preprocedure Evaluation Filed: 01/04/2023 12:12 PM Note Text: ANESTHESIOLOGY DAY OF SURGERY NOTE : 1990 Procedure Information Date/Time: 12/26/22 1140 Procedures: EGD (Abdomen) EGD WITH REMOVAL FOREIGN BODY (Abdomen) Location: [place] OR 26 / [place] OR Surgeons: Yadiel Cheng MD Estimated body mass index is 19 kg/m? as calculated from the following: Height as of 01/03/23: 180.3 cm (5' 11). Weight as of 01/03/23: 61.8 kg (136 lb 3.9 oz). Most recent hematocrit and potassium results: Hematocrit 42.4 12/26/2022 Potassium 3.6 12/26/2022 Relevant Problems No relevant active problems I - PHYSICAL EVALUATION AIRWAY Patient intubated: No. Tracheostomy tube not present Mallampati: I. TM distance: >3 FB. Neck ROM: full ROM without neurological symptoms. Mouth opening: adequate. Short neck: no. Thick neck: no DENTAL II - ANESTHESIA PLAN ASA Score: 2 Anesthetic Plan: general Airway type: ETT NPO Status: inadequate Anesthetic plan additional comments: Explained RSI. Beta Ashu Monitoring Plan Monitoring plan: standard ASA. Post Procedure Analgesic Plan Postoperative analgesic plan: multimodal analgesia. Informed Consent Anesthetic risks, benefits, alternatives, personnel and consent discussed: yes. Patient / Responsible Constitution Party agrees to proceed: yes Patient / Surrogate agrees to blood products: Yes Potential Anesthesia issues that may suggest increased risk of complications or contraindication to planned procedure: none. Vitals Value Taken Time BP 121/85 01/04/23 1141 Pulse 81 01/04/23 1141 Resp 18 01/04/23 1141 Temp 36.2 ?C (97.2 ?F) 01/04/23 1141 SpO2 100 % 01/04/23 1141 Facility-Administere d Medications as of 01/04/2023 Medication Dose Route Frequency - [Held on Transfer] nicotine 14 mg/24 hr 1 Patch (NICODERM) 1 Patch TRANSDERMAL DAILY And - [Held on Transfer] nicotine -- REMOVE patch OTHER DAILY And - [Held on Transfer] nicotine - verify patch OTHER q 8 H - [Held on Transfer] dextrose 5% in NaCl 0.45% with 20 mEq/L KCl iv infusion 100 mL/hr INTRAVENOUS CONTINUOUS - [Held on Transfer] buPROPion SR 150 mg tab(s) (ZYBAN SR; WELLBUTRIN SR) 150 mg ORAL BID - [Held on Transfer] traZODone 50 mg tab(s) (DESYREL) 50 mg ORAL AT BEDTIME - [Held on Transfer] busPIRone (BUSPAR) tab(s) 15 mg 15 mg ORAL BID - [Held on Transfer] NaCl 0.9% iv flush bag 20 mL INTRAVENOUS PRN - [Held on Transfer] morphine 2 mg injection 2 mg INTRAVENOUS q 4 H PRN No current outpatient medications on file as of 01/04/2023. I have interviewed and examined the patient. I have reviewed the medical record and/or the pre-anesthesia evaluation, pertinent labs, and test results. This contains updated information obtained within 48 hours of Surgery/Procedure. SIGNATURE: Sabrina Hollingsworth MD PATIENT NAME: Keke Pemberton DATE: December 26, 2022 TIME: 11:07 AM CSN: [id number] [facility] CONSULTon 01-04-2023 CONSULT HNO ID: [id number] Author: Jenna Sousa MD Service: General Surgery Author Type: Physician Type: Consults Filed: 01/04/2023 4:09 PM Note Text: CONSULT: Emergency Surgery Service SERVICE DATE: 01/04/2023 SERVICE TIME: 3:02 AM REASON FOR CONSULT: Forgein body ingestion REQUESTING PHYSICIAN: Dr. Diaz Subjective 32 year old male w/ a history of ADHD, tobacco use, who presents to the medicine team for foreign object ingestion. Patient is known to the medicine service for prior admission for swallowing objects when incarcerated to get out of [facility]. He presents today for ingesting batteries and a supposed razor blade. The patient had 2 batteries yesterday and another one today along with the razor blade while in retirement. His CXR did not show any acute findings. KUB showed two batteries in the rectum, one in the stomach and another curvelinear object in the stomach. The patient does complain of abdominal pain but currently his vitals are stable and he is resting comfortably. FUNCTIONAL STATUS: Independent PAST MEDICAL HISTORY Diagnosis Date ADHD (attention deficit hyperactivity disorder) PAST SURGICAL HISTORY Procedure Laterality Date NONE FAMILY HISTORY Problem Relation Age of Onset Cancer Mother Heart Father Social History Tobacco Use Smoking status: Every Day Packs/day: .5 Types: Cigarettes Smokeless tobacco: Former Vaping Use Vaping Use: Never used Substance Use Topics Alcohol use: Not Currently Comment: occassional Drug use: Yes Types: Marijuana Comment: Hx of IV busPIRone (BUSPAR) 10 mg tablet, Take 15 mg by mouth twice daily. PT to take 1.5 tablets BID, Disp: , Rfl: , Unknown traZODone (DESYREL) 50 mg tablet, Take 50 mg by mouth daily at bedtime. 0.5-2 tablets at bedtime as needed, Disp: , Rfl: , Unknown buPROPion SR (WELLBUTRIN SR) 150 mg 12 hr tablet, Take 150 mg by mouth twice daily., Disp: , Rfl: , Unknown Current Facility-Administere d Medications Medication Dose Route Frequency NaCl 0.9% iv flush bag 20 mL INTRAVENOUS PRN NaCl 0.9% iv infusion 75 mL/hr INTRAVENOUS CONTINUOUS morphine 2 mg injection 2 mg INTRAVENOUS q 4 H PRN nicotine 14 mg/24 hr 1 Patch (NICODERM) 1 Patch TRANSDERMAL DAILY And [START ON 01/05/2023] nicotine -- REMOVE patch OTHER DAILY And nicotine - verify patch OTHER q 8 H Allergies As of Date: 01/03/2023 (No Known Allergies) Fully Assessed 01/03/2023 COMPLETE REVIEW OF SYSTEMS: CONSTITUTIONAL: No fevers, chills HEENT: Denies frequent or severe heaches, nasal congestion/sinus symptoms, problematic allergy problems. EYES: No vision changes CARDIOVASCULAR: No chest pain. PULM: No Shortness of Breath. GI: abdominal pain, foreign object ingestion : No pain with urination or gross hematuria. NEURO: No weakness or numbness of concern. MUSC-SKEL: No new joint pain, swelling, or erythema. Objective PHYSICAL EXAM: GENERAL: resting comfortably, in no acute distress HEENT: normocephalic, atraumatic, EOMI NECK: trachea midline, no JVD LUNGS: Unlabored breathing, equal chest rise bilaterally CARDIAC: Regular rate and rhythm as above ABDOMEN: Soft, non-distended. Mildly TTP with no rebound. EXTREMITIES: FROST, No deformities, No edema SKIN: Skin color, texture, turgor normal, No rashes or lesions NEURO: AANDOx3, CN II-XII grossly intact PSYCH: normal mood and affect BP 108/75 Pulse 82 Temp (Src) 97.2 (Temporal) Resp 18 Ht 5' 11 (1.80m) Wt 136 lb 3.9 oz (61.8kg) SpO2 97% BMI 19.01 kg/(m2). O2 Therapy: Room Air DATA: Labs: No results for input(s): NA, K, CHLOR, CO2, BUN, CREAT, GLUC, ANION, CA, MG, P, ALB, AST, ALT, ALKPHOS, TBILI, DBILI, PHOSINTL, WBC, HB, HCT, PLT, LACT, INR, PH, PCO2, PO2, BE, HCO3 in the last 72 hours. Invalid input(s): [facility] Diagnostic tests reviewed for today's visit: XR CHEST 1V FRONTAL Final Result IMPRESSION: New curvilinear metallic gastric foreign body adjacent the prior battery. 2 new rectal batteries. Recreation Facilities Supervisor: HEAVENLY Transcribe Date/Time: Jan 04 2023 12:07A Dictated by : FRITZ DOUGLASS MD This examination was interpreted and the report reviewed and electronically signed by: FRITZ DOUGLASS MD on Jan 04 2023 12:17AM EST XR ABDOMEN 1V SUPINE Final Result IMPRESSION: New curvilinear metallic gastric foreign body adjacent the prior battery. 2 new rectal batteries. Recreation Facilities Supervisor: PSCB Transcribe Date/Time: Jan 04 2023 12:07A Dictated by : FRITZ DOUGLASS MD This examination was interpreted and the report reviewed and electronically signed by: FRITZ DOUGLASS MD on Jan 04 2023 12:17AM EST Problem List Swallowed foreign body, sequela (POA: Yes) Foreign body in stomach (POA: Status not on file) HOSPITAL COURSE: 32 year old male w/ a history of ADHD, tobacco use, who presents to the medicine team for foreign object ingestion. Plan: - No acute surgical int (more content not included)... [facility] H. pylori IgG IA Qlon 2022 H. PYLORI IGG, QUAL Negative Normal Negative [facility] Comment on above: Order Comment: Speci men Type: BLOOD SPECIMEN Ordering Facility: [facility] Address: [address] [place] [address], [place] [address] Result Comment: Juan ot exclude H. pylori infection if the specimen collected 3-4 weeks after onset of symptoms. Performed By: #### 4 [id number], [id number], [id number] #### [facility] CLIA [id number] [address] [place], [place] [id number] [facility] HISTORY PHYSICALon HISTORY PHYSICAL HNO ID: [id number] Author: Amy Herzog DO Service: Hospital Medicine Author Type: Physician Type: HANDP Filed: 01/03/2023 11:36 PM Note Text: DEPARTMENT OF HOSPITAL MEDICINE HISTORY AND PHYSICAL EXAM SERVICE DATE: 01/03/2023 SERVICE TIME: 11:29 PM Primary Care Physician: No primary care provider on file. NIGHT AND WEEKEND COVERAGE: From 7am - 7pm, please call [facility] After 7pm, please call cross cover pager #[phone] Subjective CHIEF COMPLAINT: Follow-up foreign body HPI: This is a 32 year old male who presents with swelling a battery in reasonably. Patient is known to me from prior admission where he was incarcerated and swallows objects to get out of retirement. He swallowed a battery and he told me he swallowed a razor blade today. He relates that he just does not know why he does this and is currently requesting to see a psychiatrist. No chest pain. He is complaining of some abdominal pain. Currently furloughed from retirement. The ER did have concern that a remote control was missing from the room when the patient was in it PAST MEDICAL HISTORY Diagnosis Date ADHD (attention deficit hyperactivity disorder) PAST SURGICAL HISTORY Procedure Laterality Date NONE FAMILY HISTORY Problem Relation Age of Onset Cancer Mother Heart Father Social History Tobacco Use Smoking status: Every Day Packs/day: .5 Types: Cigarettes Smokeless tobacco: Former Vaping Use Vaping Use: Never used Substance Use Topics Alcohol use: Not Currently Comment: occassional Drug use: Yes Types: Marijuana Comment: Hx of IV HOME MEDICATIONS: Prior to Admission Medications Prescriptions Last Dose Informant Patient Reported? Taking? buPROPion SR (WELLBUTRIN SR) 150 mg 12 hr tablet Unknown Yes No Sig: Take 150 mg by mouth twice daily. busPIRone (BUSPAR) 10 mg tablet Unknown Yes No Sig: Take 15 mg by mouth twice daily. PT to take 1.5 tablets BID traZODone (DESYREL) 50 mg tablet Unknown Yes No Sig: Take 50 mg by mouth daily at bedtime. 0.5-2 tablets at bedtime as needed Facility-Administere d Medications: None ALLERGIES No Known Allergies REVIEW OF SYSTEM: All ROS are negative except those noted in HPI Objective PHYSICAL EXAM: BP 108/75 Pulse 82 Temp (Src) 97.2 (Temporal) Resp 18 Ht 5' 11 (1.80m) Wt 136 lb 3.9 oz (61.8kg) SpO2 97% BMI 19.01 kg/(m2). O2 Therapy: Room Air GENERAL: Alert, no distress, cooperative, NAD SKIN: Warm, dry intact, no open lesions, no rashes HEAD/SINUSES: Normocephalic, atraumatic, oral mucosa moist EYES: PERRLA, EOMI NECK: No jugulovenous distention, Supple, no adenopathy LUNGS: Lungs clear to auscultation, no wheezes, ronchi, or rales CARDIAC: RRR, Normal S1 and S2; no rubs, murmurs, or gallops ABDOMEN: Abdomen soft, mild tenderness to palpation, BS normal, No masses or organomegaly EXTREMITIES: Extremities normal, no deformities, edema, clubbing or skin discoloration. NEURO: Sensation grossly intact, Cranial nerves II-XII intact, moves all 4 extremities, speech was clear and coherent - no chronic drew DATA: Diagnostic tests reviewed for today's visit: Most recent labs and imaging results. CBC: No results for input(s): WBC, RBC, HB, HCT, PLT, MCV, MCH, MPV, RDW in the last 24 hours. Coags: No results for input(s): PT, INR, APTT in the last 24 hours. BMP: No results for input(s): NA, K, CHLOR, CO2, BUN, CREAT, GLUC in the last 24 hours. CMP: No results for input(s): NA, K, CHLOR, CO2, BUN, CREAT, GLUC, TPROT, CA, MG, ALBUMIN, TBILI, ALKPHOS, ALT, AST, ANION in the last 24 hours. Cardiac Enzymes: No results for input(s): CK, MB, CKMB, TROPT in the last 24 hours. Liver Function, Amylase, Lipase: No results for input(s): TPROT, ALB, ALT, AST, ALKPHOS, TBILI, AMYLASE, LIPASE, LACTATE in the last 24 hours. MG/PHOS: No results for input(s): MG, P in the last 24 hours. Renal Panel: No results for input(s): ALBUMIN, CREAT, BUN, GLUC, CA, P, CHLOR, K, CO2, NA in the last 24 hours. Heme: No results for input(s): RETICP, ABSRETIC, LD, CLAUDIA, FE, TIBC, TRANSFERSAT in the last 24 hours. Estimated Creatinine Clearance: 142.6 mL/min (A) (based on SCr of 0.65 mg/dL (L)). Problem List Foreign body in stomach (POA: Status not on file) Based on medical conditions, review of data, and discussion with emergency room, [facility] will admit patient to the hospital. Assessment/Plan Foreign body in stomach-battery per patient he also relates he swallowed a razor blade. Concern for repeat foreign body ingestion therefore will order stat x-rays at this time. N.p.o. for now. GI consult. Normal saline at 75 cc an hour. Morphine 2 mg IV every 6 hours as needed pain. Will monitor for respiratory depression on this high risk IV narcotic. Pt requesting psych consult VTE Prophylaxis: (more content not included)... [facility] OPERATIVE NOon 01-04-2023 OPERATIVE NO HNO ID: [id number] Author: Angel Braun MD Service: Gastroenterology Author Type: Physician Type: Operative Report Filed: 01/04/2023 1:27 PM Note Text: OPERATIVE/PROCEDURE REPORT LOG ID: [id number] SURGERY/PROCEDURE DATE: 01/04/2023 INCISION/PROCEDURE START TIME: 1:06 PM INCISION CLOSE/PROCEDURE END TIME: 1:11 PM SURGEON(S)/PROCEDURA LIST(S) AND BLINDSTITCH LINING FELLER(S): Surgeon(s) and Role: * Angel Braun MD - Primary No Additional Staff SURGERY/PROCEDURE(S) : Egd with foreign body removal ANESTHESIA: general SURGERY/PROCEDURE DETAILS: post oropharynx normal z line 40 cm ge junction intact fundus franco body mild erosive gastritis angularis normal prepyloric 8mm clean based ulcer duod bulb normal d2 foreign body removed via rat tooth forceps PRE-OP/PRE-PROCEDURE DIAGNOSIS: foreign body in stomach POST-OP/POST-PROCEDU RE DIAGNOSIS: prepyloric ulcer erosive gastritis foreign body removal of a wall clip from d2 ESTIMATED BLOOD LOSS: 0 ml SPECIMENS: None IMPLANTABLE DEVICES: NONE DRAINS: None COMPLICATIONS: None CLOSURE TECHNIQUE: Primary PARTICIPATION IN SURGERY/PROCEDURE: I/primary surgeon/proceduralis t performed the procedure with assistance. Regular diet preop meds cont ppi/carafate start metamucil till all batteries have passed ok for psych and social service eval while in house check h pylori antibody SIGNATURE: Angel Braun MD PATIENT NAME: Keke Pemberton DATE: January 04, 2023 TIME: 1:22 PM [facility] Upper GI endoscopyon 023 Upper GI endoscopy [facility] Gastrointestinal Endoscopy Patient Name: Keke Pemberton Procedure Date: 01/04/2023 12:35 PM Date of : 1990 Admit Type: Outpatient Room: OR Area Gender: Male Note Status: Finalized Attending MD: Angel Braun MD Procedure: Upper GI endoscopy Indications: Foreign body in the stomach Providers: Angel Braun MD Patient Profile: Refer to note in patient chart for documentation of history and physical. Referring Physician: Eva Musa (Referring MD) Medicines: General Anesthesia Complications: No immediate complications. Procedure: Pre-Anesthesia Assessment: - Prior to the procedure, a History and Physical was performed, and patient medications and allergies were reviewed. The patient is competent. The risks and benefits of the procedure and the sedation options and risks were discussed with the patient. All questions were answered and informed consent was obtained. Patient identification and proposed procedure were verified by the physician in the pre-procedure area. Mental Status Examination: alert and oriented. Airway Examination: normal oropharyngeal airway and neck mobility. Respiratory Examination: clear to auscultation. CV Examination: normal. Prophylactic Antibiotics: The patient does not require prophylactic antibiotics. Prior Anticoagulants: The patient has taken no anticoagulant or antiplatelet agents. ASA Grade Assessment: II - A patient with mild systemic disease. After reviewing the risks and benefits, the patient was deemed in satisfactory condition to undergo the procedure. The anesthesia plan was to use general anesthesia. Immediately prior to administration of medications, the patient was re-assessed for adequacy to receive sedatives. The heart rate, respiratory rate, oxygen saturations, blood pressure, adequacy of pulmonary ventilation, and response to care were monitored throughout the procedure. The physical status of the patient was re-assessed after the procedure. After obtaining informed consent, the endoscope was passed under direct vision. Throughout the procedure, the patient's blood pressure, pulse, and oxygen saturations were monitored continuously. The Endoscope was introduced through the mouth, and advanced to the second part of duodenum. I was present and participated during the entire procedure, including non-franklin portions, and during the administration and monitoring of Moderate Sedation. The upper GI endoscopy was accomplished without difficulty. The patient tolerated the procedure well. The procedure was determined to be ASGE Complexity Level 2. Moderate Sedation: Exam was performed under general anesthesia (GA) Findings: The examined esophagus was normal. One non-bleeding cratered gastric ulcer with no stigmata of bleeding was found in the prepyloric region of the stomach. The lesion was 8 mm in largest dimension. A foreign body was found in the second portion of the duodenum. Removal of hook was accomplished with a rat-toothed forceps. Estimated Blood Loss: Estimated blood loss: none. Impression: - Normal esophagus. - Non-bleeding gastric ulcer with no stigmata of bleeding. - Duodenal foreign body. Removal was successful. Recommendation: - [facility] to [facility]. - Resume regular diet today. start metamucil bid - Observe patient's clinical course. - Continue present medications. - The findings and recommendations were discussed with the patient. - Perform a flat plate and upright abdominal x-ray tomorrow. - The patient is not currently taking anticoagulant or antiplatelet agents. Procedure Code(s): --- Professional --- 36987, Esophagogastroduoden oscopy, flexible, transoral; with removal of foreign body(s) --- Technical --- 30433, Esophagogastroduoden oscopy, flexible, transoral; with removal of foreign body(s) Diagnosis Code(s): --- Professional --- K25.9, Gastric ulcer, unspecified as acute or chronic, without hemorrhage or perforation T18.3XXA, Foreign body in small intestine, initial encounter T18.2XXA, Foreign body in stomach, initial encounter --- Technical --- K25.9, Gastric ulcer, unspecified as acute or chronic, without hemorrhage or perforation T18.3XXA, Foreign body in small intestine, initial encounter T18.2XXA, Foreign body in stomach, initial encounter CPT copyright 2020 [employer] [employer]. All rights reserved. The codes documented in this report are preliminary and upon price accuracy supervisor review may be revised to meet current compliance requirements. Attending Participation: I personally performed the entire procedure. Scope In: 1:06:21 PM Scope Out: 1:10:16 PM MD Angel Mcfarland MD 01/04/2023 3:33:36 PM This report has been signed electronically by Angel Braun MD Number of Addenda: 0 (more content not included)... [facility] XR ABDOMEN 1V SUPINEon 01-04 XR ABDOMEN 1V SUPINE * * *Final Report* * * DATE OF EXAM: Jan 04 2023 10:43AM [id number] [id number] - XR ABDOMEN 1V SUPINE / PROCEDURE REASON: Foreign body in alimentary tract * * * * Physician Interpretation * * * * Abdomen supine: HISTORY: Indication: Foreign body in alimentary tract TECHNIQUE: Views obtained: XR ABDOMEN 1V SUPINE Comparison: 01/03/2023. RESULT/ impression: Wire-shaped opaque foreign body remains in the region of the stomach. Rectangular shaped opaque foreign body is now seen left side and most likely within the small bowel. Please refer to 01/05/2023 exam to further evaluate position of the foreign bodies. Recreation Facilities Supervisor: HEAVENLY Transcribe Date/Time: Jan 05 2023 10:37A Dictated by : DMITRY PUGA MD This examination was interpreted and the report reviewed and electronically signed by: DMITRY PUGA MD on Jan 05 2023 10:38AM EST [id number] [facility] XR ABDOMEN 1V SUPINE * * *Final Report* * * DATE OF EXAM: Jan 04 2023 12:05AM [id number] - XR ABDOMEN 1V SUPINE / PROCEDURE REASON: Nausea/vomiting * * * * Physician Interpretation * * * * EXAM: XR CHEST 1V FRONTAL, XR ABDOMEN 1V SUPINE HISTORY: Foreign body ingestion, may have swallowed more batteries at outside facility COMPARISON: Same date radiographs RESULT: Lines, tubes, and devices: None. Chest: Negative chest without radiopaque foreign body. Abdomen: No free air detected. Nonobstructive bowel gas pattern. Redemonstrated AA/AAA type battery in the left upper quadrant over the proximal stomach. New adjacent curvilinear metallic object over the proximal stomach. 2 additional new batteries in the low pelvis over the rectum. Other: . IMPRESSION: New curvilinear metallic gastric foreign body adjacent the prior battery. 2 new rectal batteries. Recreation Facilities Supervisor: HEAVENLY Transcribe Date/Time: Jan 04 2023 12:07A Dictated by : FRITZ DOUGLASS MD This examination was interpreted and the report reviewed and electronically signed by: FRITZ DOUGLASS MD on Jan 04 2023 12:17AM EST [id number] [facility] XR CHEST 1V FRONTALon 2022 XR CHEST 1V FRONTAL * * *Final Report* * * DATE OF EXAM: Jan 04 2023 12:05AM [id number] - XR CHEST 1V FRONTAL / PROCEDURE REASON: Foreign body suspected, chest, neg xray * * * * Physician Interpretation * * * * EXAM: XR CHEST 1V FRONTAL, XR ABDOMEN 1V SUPINE HISTORY: Foreign body ingestion, may have swallowed more batteries at outside facility COMPARISON: Same date radiographs RESULT: Lines, tubes, and devices: None. Chest: Negative chest without radiopaque foreign body. Abdomen: No free air detected. Nonobstructive bowel gas pattern. Redemonstrated AA/AAA type battery in the left upper quadrant over the proximal stomach. New adjacent curvilinear metallic object over the proximal stomach. 2 additional new batteries in the low pelvis over the rectum. Other: . IMPRESSION: New curvilinear metallic gastric foreign body adjacent the prior battery. 2 new rectal batteries. Recreation Facilities Supervisor: HEAVENLY Transcribe Date/Time: Jan 04 2023 12:07A Dictated by : FRITZ DOUGLASS MD This examination was interpreted and the report reviewed and electronically signed by: FRITZ DOUGLASS MD on Jan 04 2023 12:17AM EST [id number] [facility] ED NOTEon 01-03-2023 ED NOTE HNO ID: [id number] Author: Rubi Ugalde RN Service: Emergency Medicine Author Type: Registered Nurse Type: ED Notes Filed: 01/03/2023 10:09 PM Note Text: While cleaning pt's room, it was noted that the remote for the TV was missing. Receiving nurse at [facility] notified. [facility] ED NOTE HNO ID: [id number] Author: Jenna Munson, DEMARCO Service: Emergency Medicine Author Type: Registered Nurse Type: ED Notes Filed: 01/03/2023 8:51 PM Note Text: Transfer line called with bed assignment -[facility] - report number [id number] -called [facility] for transport, eta 1 hour [facility] ED NOTE HNO ID: [id number] Author: Rubi Ugalde, DEMARCO Service: Emergency Medicine Author Type: Registered Nurse Type: ED Notes Filed: 01/03/2023 8:56 PM Note Text: Per Dr. Musa pt to only be given clear liquids at this point on. Pt notified [facility] ED NOTE HNO ID: [id number] Author: Rubi Ugalde RN Service: Emergency Medicine Author Type: Registered Nurse Type: ED Notes Filed: 01/03/2023 7:40 PM Note Text: Pt placed on furlough by [facility]. Copies of furlough agreement to be sent with pt. Pt verbalized understanding of furlough [facility] ED NOTE HNO ID: [id number] Author: Rubi Ugalde RN Service: Emergency Medicine Author Type: Registered Nurse Type: ED Notes Filed: 01/03/2023 7:15 PM Note Text: Spoke with Abdullahi at [facility]. Pt gave consent via phone to talk to counselor. Per counselor He saw a Dr. Shanon Gavin, last saw her 05/21/22. Was supposed to have follow up on 06/25/22 but was no call no show. Has not made any attempts to be seen again. In April, he was prescribed Buspirone 10mg 1.5 tab BID, Trazodone 50 mg 1/2 tablet to 2 tablets at night as needed, and bupropion XL 150mg Daily. Dr. Musa updated on findings [facility] ED PROV NOTEon 01-03-2023 ED PROV NOTE HNO ID: [id number] Author: Eva Musa MD Service: Emergency Medicine Author Type: Physician Type: ED Provider Notes Filed: 01/03/2023 10:42 PM Note Text: ED Provider Note Patient Name: Keke Pemberton : 1990 SERVICE DATE: 01/03/23 History Patient presents with: Foreign Body Ingestion: AAA battery HPI Patient is a 32-year-old gentleman with history as below, recent multiple foreign body ingestions presenting with reports of foreign body ingestion. History provided by patient. Reports about 1 hour prior to arrival he ingested a AAA battery. Denies self-harm intent but states that he was trying to just get out of the hospital to get his medications. No SI, HI. Denies any chest pain cough or shortness of breath. States he does have anxiety. No abdominal pain, nausea vomiting or diarrhea. Denies any coughing, choking when he ingested this. PAST MEDICAL HISTORY Diagnosis Date ADHD (attention deficit hyperactivity disorder) PAST SURGICAL HISTORY Procedure Laterality Date NONE FAMILY HISTORY Problem Relation Age of Onset Cancer Mother Heart Father Social History Tobacco Use Smoking status: Every Day Packs/day: .5 Types: Cigarettes Smokeless tobacco: Former Vaping Use Vaping Use: Never used Substance and Sexual Activity Alcohol use: Not Currently Comment: occassional Drug use: Yes Types: Marijuana Comment: Hx of IV Sexual activity: Not on file ALLERGIES No Known Allergies Review of Systems As per HPI Physical Exam Vitals [01/03/23 1806] BP Pulse Temp Temp src Resp SpO2 Weight Height 110/75 (!) 99 37.1 ?C (98.7 ?F) Temporal 16 99 % 68 kg (150 lb) -- Physical Exam Well-appearing, non-toxic and in no obvious distress. Hemodynamically stable and afebrile Heart RRR w/o murmurs; Distal pulses intact Lungs CTAB Abd soft, NT, ND Patient moves all 4 extremities spontaneously and without deficit Diagnostic Testing ED Labs Ordered and Reviewed - No data to display Procedures ED Course / Clinical Impression Clinical Impressions as of 01/03/232221 Foreign body ingestion MDM / Disposition / Plan MDM Patient is a 32-year-old male with history as above presenting with complaints of foreign body ingestion. History and exam as above. Medical record reviewed. Additional encounters reviewed: Multiple recent ED encounters and hospitalizations for foreign body ingestion, was seen in ED and admitted on December 04December 25 with also ED visit on December 07December 09. HPI obtained from patient. ED COURSE: Patient nontoxic vital signs stable patient exam is nonfocal. Reports ingesting AAA battery. Commended x-ray imaging. I personally reviewed the radiographs and the radiology report. XR ABD CXR IMPRESSION: 4.8 x 1.2 cm radiopaque foreign density in the shape of a battery in the left upper quadrant overlying the expected location of the proximal stomach. Nonspecific nonobstructive bowel gas pattern. No acute airspace disease on AP portable chest radiograph. Case reviewed with Dr. Johnson GI. At this time he recommended admission to medicine for monitoring and repeat x-ray in the morning to see if it was able to move out of the stomach on its own. If it was patient will be able to be discharged home with expectant management but if it remains in the stomach tomorrow and repeat imaging patient will require an endoscopy. Results and recommendations reviewed with surgery. Will be transferred to [facility]. Patient admission accepted by Dr. Diaz. SIGNATURE: MD LUKE Case ELENI 01/03/23 2242 Normal [facility] XR ABDOMEN 1V SUPINEon 01-03 XR ABDOMEN 1V SUPINE * * *Final Report* * * DATE OF EXAM: Jan 03 2023 6:41PM LDX 5289 - XR ABDOMEN 1V SUPINE / PROCEDURE REASON: Other (document in comments) * * * * Physician Interpretation * * * * EXAMINATION: CHEST RADIOGRAPH (SINGLE VIEW AP OR PA); XR ABDOMEN 1V SUPINE CLINICAL HISTORY: Ingestion of foreign yxyd-Rqbkcp-S battery MQ: XC1_5 Comparison: Abdominal radiograph 12/26/2022 RESULT: Lines, tubes, and devices: None. Lungs and pleura: There is no focal lobar consolidation, gross edema or pneumothorax. Cardiomediastinal silhouette: Normal cardiomediastinal silhouette. 2 supine abdominal radiographs: . 4.8 x 1.2 cm radiopaque foreign density in the shape of a battery in the left upper quadrant overlying the expected location of the proximal stomach. Bowel gas pattern is nonspecific and nonobstructive. Scattered stool present throughout the colon. IMPRESSION: 4.8 x 1.2 cm radiopaque foreign density in the shape of a battery in the left upper quadrant overlying the expected location of the proximal stomach. Nonspecific nonobstructive bowel gas pattern. No acute airspace disease on AP portable chest radiograph. Recreation Facilities Supervisor: HEAVENLY Transcribe Date/Time: Jan 03 2023 6:51P Dictated by : FRANCISCO JAVIER GAVIRIA MD This examination was interpreted and the report reviewed and electronically signed by: FRACNISCO JAVIER GAVIRIA MD on Jan 03 2023 6:56PM EST [id number] Normal [facility] XR CHEST 1V FRONTALon 2022 XR CHEST 1V FRONTAL * * *Final Report* * * DATE OF EXAM: Jan 03 2023 6:41PM LDX 5290 - XR CHEST 1V FRONTAL / PROCEDURE REASON: Other (document in comments) * * * * Physician Interpretation * * * * EXAMINATION: CHEST RADIOGRAPH (SINGLE VIEW AP OR PA); XR ABDOMEN 1V SUPINE CLINICAL HISTORY: Ingestion of foreign itjp-Hvozxb-B battery MQ: XC1_5 Comparison: Abdominal radiograph 12/26/2022 RESULT: Lines, tubes, and devices: None. Lungs and pleura: There is no focal lobar consolidation, gross edema or pneumothorax. Cardiomediastinal silhouette: Normal cardiomediastinal silhouette. 2 supine abdominal radiographs: . 4.8 x 1.2 cm radiopaque foreign density in the shape of a battery in the left upper quadrant overlying the expected location of the proximal stomach. Bowel gas pattern is nonspecific and nonobstructive. Scattered stool present throughout the colon. IMPRESSION: 4.8 x 1.2 cm radiopaque foreign density in the shape of a battery in the left upper quadrant overlying the expected location of the proximal stomach. Nonspecific nonobstructive bowel gas pattern. No acute airspace disease on AP portable chest radiograph. Recreation Facilities Supervisor: [facility] Transcribe Date/Time: Jan 03 2023 6:51P Dictated by : FRANCISCO JAVIER GAVIRIA MD This examination was interpreted and the report reviewed and electronically signed by: FRANCISCO JAVIER GAVIRIA MD on Jan 03 2023 6:56PM EST [id number] Normal [facility] ANES POSTPROC EVALon 023 ANES POSTPROC EVAL HNO ID: [id number] Author: Sabrina Hollingsworth MD Service: Anesthesiology Author Type: Physician Type: Anesthesia Postprocedure Evaluation Filed: 12/26/2022 2:29 PM Note Text: POST ANESTHESIA EVALUATION NOTE : 1990 Procedure Summary Date: 12/26/22 Room / Location: [facility] OR / [place] OR Anesthesia Start: 1130 Anesthesia Stop: 1207 Procedures: EGD (Abdomen) EGD WITH REMOVAL FOREIGN BODY (Abdomen) Diagnosis: Foreign body aspiration (Foreign body aspiration [T17.908A]) Surgeons: Angel Braun MD Responsible Provider: Sabrina Hollingsworth MD Anesthesia Type: general ASA Status: 2 Anesthesia Type: general Airway Type: ETT Last Vitals Vitals Value Taken Time BP 106/76 12/26/22 1300 Temp 36 ?C (96.8 ?F) 12/26/22 1230 HR SpO2 100 12/26/22 1303 Resp 19 12/26/22 1302 SpO2 100 % 12/26/22 1303 Vitals shown include unvalidated device data. Post Anesthesia Patient Status Patient Evaluation: PACU. PACU/ICU Patient Condition: stable. Anticipated Disposition: phase 2 then home. Neurological Status: aware and responsive. Pulmonary Status: breathing comfortably on supplemental oxygen Airway Control: returned to baseline unsupported. Cardiovascular Status: stable. Pain Management: clinically adequate Postoperative Hydration: acceptable. Intraoperative Events: no significant anesthesia events Post Operative Nausea/Vomiting Status: no significant post operative nausea or vomiting Recommendation: continue current plan of care. Anesthesia Observations No Documentation SIGNATURE: Sabrina Hollingsworth MD PATIENT NAME: Keke Pemberton DATE: December 26, 2022 TIME: 2:28 PM CSN: [id number] Normal [facility] ANES PRE-OPon 12-26-2022 ANES PRE-OP HNO ID: [id number] Author: Sabrina Hollingsworth MD Service: Anesthesiology Author Type: Physician Type: Anesthesia Preprocedure Evaluation Filed: 12/26/2022 11:20 AM Note Text: ANESTHESIOLOGY DAY OF SURGERY NOTE 32 M for foreign body extraction (razor blade swallowed at 2pm 12/25 and pen swallowed ~1 week ago) Last ate jello, pudding, crackers at 9am. GI doctor declaring urgent to get the razor blade out despite inadequate NPO status. Explained rapid sequence intubation to patient. No anesthesia or airway hx on file : 1990 Procedure Information Date/Time: 12/26/22 1140 Procedures: EGD (Abdomen) EGD WITH REMOVAL FOREIGN BODY (Abdomen) Location: [place] OR 26 / [place] OR Surgeons: Yadiel Cheng MD Estimated body mass index is 19.53 kg/m? as calculated from the following: Height as of this encounter: 180.3 cm (5' 11). Weight as of this encounter: 63.5 kg (140 lb). Most recent hematocrit and potassium results: Hematocrit 42.4 12/26/2022 Potassium 3.6 12/26/2022 Relevant Problems No relevant active problems I - PHYSICAL EVALUATION AIRWAY Patient intubated: No. Tracheostomy tube not present Mallampati: I. TM distance: >3 FB. Neck ROM: full ROM without neurological symptoms. Mouth opening: adequate. Short neck: no. Thick neck: no DENTAL II - ANESTHESIA PLAN ASA Score: 2 Anesthetic Plan: general Airway type: ETT NPO Status: inadequate Anesthetic plan additional comments: Explained RSI. Beta Ashu Monitoring Plan Monitoring plan: standard ASA. Post Procedure Analgesic Plan Postoperative analgesic plan: multimodal analgesia. Informed Consent Anesthetic risks, benefits, alternatives, personnel and consent discussed: yes. Patient / Responsible Constitution Party agrees to proceed: yes Patient / Surrogate agrees to blood products: Yes Potential Anesthesia issues that may suggest increased risk of complications or contraindication to planned procedure: none. Vitals Value Taken Time BP 112/84 12/26/22 1051 Pulse 102 12/26/22 1049 Resp 16 12/26/22 1049 Temp 37.1 ?C (98.8 ?F) 12/26/22 1049 SpO2 98 % 12/26/22 1050 Vitals shown include unvalidated device data. Facility-Administere d Medications as of 12/26/2022 Medication Dose Route Frequency - morphine 2 mg injection 2 mg INTRAVENOUS q 4 H PRN - heparin 5,000 Units injection 5,000 Units SUBCUTANEOUS q 12 H - NaCl 0.9% iv flush bag 20 mL INTRAVENOUS PRN - aluminum-magnesium hydroxide-simethicon e 200-200-20 mg/5 mL 30 mL 30 mL ORAL DAILY PRN - ondansetron 4 mg tab(s) (ZOFRAN) 4 mg ORAL q 6 H PRN Or - ondansetron (PF) 4 mg injection (ZOFRAN) 4 mg INTRAVENOUS q 6 H PRN - acetaminophen 650 mg tab(s) (TYLENOL) 650 mg ORAL q 6 H PRN - NaCl 0.9% iv infusion 100 mL/hr INTRAVENOUS CONTINUOUS - LORazepam 1 mg tab(s) (ATIVAN) 1 mg ORAL TID PRN - nicotine 14 mg/24 hr 1 Patch (NICODERM) 1 Patch TRANSDERMAL DAILY And - nicotine -- REMOVE patch OTHER DAILY And - nicotine - verify patch OTHER q 8 H - oxyCODONE-acetaminop hen 5-325 mg 1-2 tablet (PERCOCET) 1-2 tablet ORAL q 4 H PRN No current outpatient medications on file as of 12/26/2022. I have interviewed and examined the patient. I have reviewed the medical record and/or the pre-anesthesia evaluation, pertinent labs, and test results. This contains updated information obtained within 48 hours of Surgery/Procedure. SIGNATURE: Sabrina Hollingsworth MD PATIENT NAME: Keke Pemberton DATE: December 26, 2022 TIME: 11:07 AM CSN: [id number] Normal [facility] HNO ID: [id number] Author: Malini Cruz LSW Service: ? Author Type: Golf Cart Maker Type: Care Mgt Initial Assessment Filed: 12/26/2022 2:35 PM Note Text: CARE MANAGEMENT: ASSESSMENT AND DISCHARGE PLAN SERVICE DATE: December 26, 2022 SERVICE TIME: 2:33 PM PCP: No primary care provider on file. Primary Contact: Extended Emergency Contact Information Primary Emergency Contact: Nguyễn Garay Mobile Relation: Uncle Admission Status: Inpatient Insurance Provider: [facility] MEDICAID Discharge Planning requested by: Per Department Practice Potential Transition Plans Advance Directives Current Advance Directive: None Lithographic Etcher Attempted to Assist with AD Completion: Yes Action: Patient Unwilling Current Living Arrangements and Support Lives with: mark retirement Type of Residence: Support: How do you manage to accomplish the following: Independent: Ambulation;Bathe/Yolanda wer;Dress;Meals/Meal Prep;Going to the bathroom;Medication Management;Transport ation to appointments/communi ty Current Services/Equipment Discharge Planning Patient Goal(s): (return to retirement) [place] Explained: [place] Given: No Are you interested in bedside delivery of your medications? No Discharge Planning Participant(s): Patient/Family Comments: Caregiver Assessment: Caregiver is ready, willing and able to meet the patient's needs as recommended by the inter-professional team: No Transport at Discharge: Transportation Arrangements: Car Destination: [facility] Needs Prior to Discharge: Needs Prior to Discharge: (medical clearance) Post-Acute Discharge Plan: Sw spoke to [facility] and plan is for patient to return at discharge. Patient is not to leave with family or on his own. Sw made phone call to [facility] and they will be here within the hour to hop picker patient and transport back to retirement. SIGNATURE: RICHELLE Sanchez PATIENT NAME: Keke Pemberton DATE: December 26, 2022 TIME: 2:32 PM CONTACT #: [phone] Normal [facility] CBC panel Auto (Bld)on 12-26 Erythrocyte distribution width (RBC) [Ratio] 13.4 % Normal 11.5-15.0 [facility] Comment on above: Order Comment: Speceli velasquez Type: BLOOD SPECIMENOrdering Facility: [facility] Address: [address] [place] [address] Performed By: #### 5 8410-2 ####[facility]ORATORYCLIA [id number] [address] [place] Hematocrit (Bld) [Volume fraction] 42.4 % Normal 39.0-51.0 [facility] Comment on above: Order Comment: Yeyo velasquez Type: BLOOD SPECIMENOrdering Facility: [facility] Address: [address] [place] [address] Performed By: #### 5 8410-2 ####[facility]ATORYCLIA [id number] [place] [address] [place] Hemoglobin (Bld) [Mass/Vol] 14.3 g/dL Normal 13.0-17.0 [facility] Comment on above: Order Comment: Yeyo velasquez Type: BLOOD SPECIMENOrdering Facility: [facility] Address: [address] [place] [address] Performed By: #### 5 8410-2 ####[facility]ATORYCLIA [id number] [address] MCH (RBC) [Entitic mass] 29.1 pg Normal 26.0-34.0 [facility] Comment on above: Order Comment: Speci men Type: BLOOD SPECIMENOrdering Facility: [facility] Address: [address] [place] [address] Performed By: #### 5 8410-2 ####[facility]ATORYCLIA [id number] [address] MCHC (RBC) [Mass/Vol] 33.7 g/dL Normal 30.5-36.0 [facility] Comment on above: Order Comment: Speci men Type: BLOOD SPECIMENOrdering Facility: [facility] Address: [address] [place] [address] Performed By: #### 5 8410-2 ####[facility]ORYCLIA [id number] [address] MCV (RBC) [Entitic vol] 86.4 fL Normal 80.0-100.0 [facility] Comment on above: Order Comment: Speci men Type: BLOOD SPECIMENOrdering Facility: [facility] Address: [address] [place] [address] Performed By: #### 5 8410-2 ####[facility]ORYCLIA [id number] [address] Nucleated RBC (Bld) [#/Vol] 10*3/uL Normal <0.01 [facility] Comment on above: Order Comment: Speci men Type: BLOOD SPECIMENOrdering Facility: [facility] Address: [address] [place] [address] Performed By: #### 5 8410-2 ####[facility]ORYCLIA [id number] [address] OF [facility] Platelet mean volume (Bld) [Entitic vol] 9.5 fL Normal 9.0-12.7 [facility] Comment on above: Order Comment: Speci men Type: BLOOD SPECIMENOrdering Facility: [facility] Address: [address] [place] [address] Performed By: #### 5 8410-2 ####[facility]ORYCLIA [id number] [address] Platelets (Bld) [#/Vol] 445 10*3/uL High 150-400 [facility] Comment on above: Order Comment: Speci men Type: BLOOD SPECIMENOrdering Facility: [facility] Address: [address] [place] [address] Performed By: #### 5 8410-2 ####[facility]ORYCLIA [id number] [address] RBC (Bld) [#/Vol] 4.91 10*6/uL Normal 4.20-6.00 [facility] Comment on above: Order Comment: Speci men Type: BLOOD SPECIMENOrdering Facility: [facility] Address: [address] [place] [address] Performed By: #### 5 8410-2 ####[facility]ORYCLIA [id number] [address] WBC (Bld) [#/Vol] 12.35 10*3/uL High 3.70-11.00 [facility] Comment on above: Order Comment: Speci men Type: BLOOD SPECIMENOrdering Facility: [facility] Address: [address] [place] [address] Performed By: #### 5 8410-2 ####[facility]ATORYCLIA [id number] [address] CNDSon 12-26-2022 CNDS HNO ID: [id number] Author: Andreas Mock MD Service: Hospital Medicine Author Type: Physician Type: Discharge Summary Filed: 12/26/2022 2:14 PM Note Text: DISCHARGE SUMMARY PATIENT NAME: Keke Pemberton Code Status: Not on file Highest Readmission Risk Score: 15 The 30 day readmissions risk score is derived from an internally validated risk model which evaluates patient level characteristics, utilization history, medication orders and lab results up until the day of discharge. Patients with a score of 40 or above are considered highest risk for readmission. Specific patient level drivers will be listed at the bottom of the summary. Admission Information Admission Information ADMIT DATE: 12/25/2022 DISCHARGE DATE: 12/26/2022 MY DOCTORS AND MEDICAL TEAM: My Main Hospital Doctor: Andreas Mock* Primary Care Provider: No primary care provider on file. My Medical Team Members: Treatment Team: Attending Provider: Andreas Mock MD Consulting: Miguel Epperson MD Primary Service: PREET WHITAKER MY CONDITION AT DISCHARGE: Stable REASON I WAS IN THE HOSPITAL: Ingested foreign body SUMMARY OF WHAT HAPPENED WHILE I WAS IN THE HOSPITAL: you were brought to the ED from retirement after swallowing a foreign object, visible on XRay without any signs of perforation. EGD was performed the next day and a pen was removed, and there was no evidence of damage. Once you were able to eat food again after the procedure, you were stable to discharge. OTHER PROBLEMS/DIAGNOSIS: Principal Problem: Ingestion of foreign body Resolved Problems: * No resolved hospital problems. * OPERATIONS PERFORMED WHILE IN THE HOSPITAL: None IMPORTANT TEST/PROCEDURES: EGD TEST RESULTS NOT AVAILABLE AT THIS TIME: No pending results Discharge Disposition Discharge Disposition: Law Enforcement Activity When You Leave the Hospital Resume pre-hospital activity Diet Instructions Regular Additional Provider to Provider Information: Principal Problem: Ingestion of foreign body Resolved Problems: * No resolved hospital problems. * Treatment Team: Attending Provider: Andreas Mock MD Consulting: Miguel Epperson MD Primary Service: PREET WHITAKER Transitions of Care Critical Issues: none LABS AND PROCEDURES PENDING AT DISCHARGE: No pending results. FOLLOW-UP APPOINTMENTS ALREADY SCHEDULED WITH A [facility] PROVIDER: No future appointments. ALLERGIES No Known Allergies DISCHARGE MEDICATION: Medication List CONTINUE taking these medications WELLBUTRIN SR 150 mg 12 hr tablet Generic drug: buPROPion SR Discharge Physical Exam: VITAL SIGNS: BP 101/77 Pulse 90 Temp 36 ?C (96.8 ?F) (Temporal) Resp 17 Ht 180.3 cm (5' 11) Wt 63.5 kg (140 lb) SpO2 99% BMI 19.53 kg/m? GENERAL: Alert, no distress, cooperative The patient's risk for 30-day readmission is determined using the following contributing factors: Pt variables contributing to increased readmission risk: 11 Active Medication Orders 10 Most Recent BUN Result 9.4 First Resulted Calcium During Admission 6 Number of Previous ED Visits (6 mos.) 1 Previous ED Visit (6 mos.)? 1 Insurance - Medicaid 1 Active Anticoagulant Plan of care discussed with Provider, RN, Patient, Care Management, Consultants: GI, and Pharmacist I have performed the [id number] and relevant services for a total of 35 minutes. SIGNATURE: Andreas Mock MD DATE: December 26, 2022 TIME: 2:14 PM Normal [facility] CONSULTon 12-26-2022 CONSULT HNO ID: [id number] Author: Mario Harrison APRN.KORIN Service: Gastroenterology Author Type: Nurse Practitioner Type: Consults Filed: 12/26/2022 8:16 AM Note Text: INITIAL CONSULT GASTROENTEROLOGY SERVICE DATE: 12/26/2022 SERVICE TIME: 7:58 AM Consulting Service: Gastroenterology Chief Complaint: Foreign body ingestion Opinion/advice regarding: Foreign body ingestion Subjective HPI: This is a 32 year old male who presents following an episode of swallowing the head of a razor. Patient reports he did this at ~1400 yesterday. He denies SI or HI at time of ingestion. Patient reports he does not know why he continues to ingest foreign objects. He reports that he also ingested a flexible pen ~4 days ago. Patient reports he has had one episode of blood tinged sputum since the ingestion. Patient endorses epigastric pain. He denies current nausea, diarrhea, and constipation. Upon assessment, vitals stable and afebrile. Labs significant for WBC 12.35, K 3.6, and BUN 0.65. Abdominal x-ray demonstrating there are 2 radiopaque foreign bodies noted projecting over the mid and upper abdomen. Of note, patient has had recurrent ingestion of foreign bodies. Patient also presented 12/04 following ingesting a razor blade. 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 He was cleared from a psychiatric standpoint. Patient left AMA at that time, but re-presented to ED 12/08 for re-evaluation. At that time, the foreign body had passed. PAST MEDICAL HISTORY Diagnosis Date ADHD (attention deficit hyperactivity disorder) PAST SURGICAL HISTORY Procedure Laterality Date NONE FAMILY HISTORY Problem Relation Age of Onset Cancer Mother Heart Father Social History Tobacco Use Smoking status: Former Packs/day: .5 Types: Cigarettes Smokeless tobacco: Former Vaping Use Vaping Use: Never used Substance Use Topics Alcohol use: Not Currently Comment: occassional Drug use: Not Currently Types: IV MEDICATIONS: Prior to Admission Medications: buPROPion SR (WELLBUTRIN SR) 150 mg 12 hr tabletTake 150 mg by mouth twice daily.Disp: Rfl: Current Facility-Administere d Medications Medication Dose Route Frequency heparin 5,000 Units injection 5,000 Units SUBCUTANEOUS q 12 H NaCl 0.9% iv flush bag 20 mL INTRAVENOUS PRN aluminum-magnesium hydroxide-simethicon e 200-200-20 mg/5 mL 30 mL 30 mL ORAL DAILY PRN ondansetron 4 mg tab(s) (ZOFRAN) 4 mg ORAL q 6 H PRN Or ondansetron (PF) 4 mg injection (ZOFRAN) 4 mg INTRAVENOUS q 6 H PRN acetaminophen 650 mg tab(s) (TYLENOL) 650 mg ORAL q 6 H PRN NaCl 0.9% iv infusion 100 mL/hr INTRAVENOUS CONTINUOUS LORazepam 1 mg tab(s) (ATIVAN) 1 mg ORAL TID PRN nicotine 14 mg/24 hr 1 Patch (NICODERM) 1 Patch TRANSDERMAL DAILY And nicotine -- REMOVE patch OTHER DAILY And nicotine - verify patch OTHER q 8 H oxyCODONE-acetaminop hen 5-325 mg 1-2 tablet (PERCOCET) 1-2 tablet ORAL q 4 H PRN morphine 2 mg injection 2 mg INTRAVENOUS q 4 H PRN ALLERGIES No Known Allergies GI SPECIFIC REVIEW OF SYSTEMS: See above Objective PHYSICAL EXAM: BP 110/72 Pulse 68 Temp 37 ?C (98.6 ?F) (Oral) Resp 16 Ht 180.3 cm (5' 11) Wt 63.5 kg (140 lb) SpO2 100% BMI 19.53 kg/m? GENERAL- AAO x 3, no distress LUNGS: Clear to auscultation bilaterally CARDIAC: S1, S2 heard, no murmur appreciated ABDOMEN: Abdomen soft, non-tender, BS normal, No masses or organomegaly and Positive findings: tenderness: mild location: epigastric DATA: Diagnostic Tests Reviewed for Today's Visit: Latest Reference Range AND Units 12/25/22 16:12 12/26/22 01:23 Sodium 136 - 144 mmol/L 136 138 Potassium 3.7 - 5.1 mmol/L 4.4 3.6 (L) Chloride 97 - 105 mmol/L 101 103 CO2 22 - 30 mmol/L 26 22 BUN 9 - 24 mg/dL 10 10 Creatinine 0.73 - 1.22 mg/dL 0.63 (L) 0.65 (L) Glucose 74 - 99 mg/dL 98 78 Protein, Total 6.3 - 8.0 g/dL 6.9 7.1 Calcium 8.5 - 10.2 mg/dL 9.4 9.4 Albumin 3.9 - 4.9 g/dL 4.1 4.4 Bilirubin, Total 0.2 - 1.3 mg/dL 0.2 0.3 Alkaline Phosphatase 38 - 113 U/L 87 97 ALT 10 - 54 U/L 52 57 (H) AST 14 - 40 U/L 23 28 Anion Gap 9 - 18 mmol/L 9 13 eGFR >=60 mL/min/1.73m? 130 128 WBC 3.70 - 11.00 k/uL 9.56 12.35 (H) RBC 4.20 - 6.00 m/uL 4.59 4.91 Hemoglobin 13.0 - 17.0 g/dL 13.7 14.3 Hematocrit 39.0 - 51.0 % 40.5 42.4 Platelet Count 150 - 400 k/uL 402 (H) 445 (H) MCV 80.0 - 100.0 fL 88.2 86.4 MCH 26.0 - 34.0 pg 29.8 29.1 MCHC 30.5 - 36.0 g/dL 33.8 33.7 MPV 9.0 - 12.7 fL 8.8 (L) 9.5 RDW-CV 11.5 - 15.0 % 13.4 13.4 DTYPE Auto Neut% % 61.3 Abs Neut (ANC) 1.45 - 7.50 k/uL 5.85 Lymph% % 27.1 Abs Lymph 1.00 - 4.00 k/uL 2.59 Tom Green% % 9.8 Abs [place] <0.87 k/uL 0.94 (H) Eosin% % 0.6 Abs Eosin <0.46 k/uL 0.06 Baso% % 0.4 Abs Baso <0.11 k/uL 0.04 Immature Gran % % 0.8 IMMATURE GRANS (ABS) <0.1 (more content not included)... Normal [facility] Comprehensive metabolic 2000 panelon 12-26-2022 Albumin [Mass/Vol] 4.4 g/dL Normal 3.9-4.9 [facility] Comment on above: Order Comment: Speci men Type: BLOOD SPECIMEN Ordering Facility: [facility] Address: [address] [place] [address] Performed By: #### 4 024-6, 5643-2, 7 #### [facility] CLIA [id number] [address] [place] ALP [Catalytic activity/Vol] 97 U/L Normal 38-113 [facility] Comment on above: Order Comment: Speci men Type: BLOOD SPECIMEN Ordering Facility: [facility] Address: [address] [place] [address] Performed By: #### 4 024-6, 5643-2, 7 #### [facility] CLIA [id number] [address] [place] [address] [place] ALT With P-5'-P [Catalytic activity/Vol] 57 U/L High 10-54 [facility] Comment on above: Order Comment: Speci men Type: BLOOD SPECIMEN Ordering Facility: [facility] Address: [address] [place] [address] Performed By: #### 4 024-6, 5643-2, 7 #### [facility] CLIA [id number] [address] [place] [address] [place] Anion gap [Moles/Vol] 13 mmol/L Normal 9-18 [facility] Comment on above: Order Comment: Speci men Type: BLOOD SPECIMEN Ordering Facility: [facility] Address: [address] [place] [address] Performed By: #### 4 024-6, 5643-2, 3297-7 #### [facility] CLIA [id number] [address] [place] [address] [place] AST With P-5'-P [Catalytic activity/Vol] 28 U/L Normal 14-40 [facility] Comment on above: Order Comment: Speci men Type: BLOOD SPECIMEN Ordering Facility: [facility] Address: [address] [place] [address] Performed By: #### 4 024-6, 5643-2, 7 #### [facility] CLIA [id number] [address] [place] [address] [place] Bilirubin [Mass/Vol] 0.3 mg/dL Normal 0.2-1.3 [facility] Comment on above: Order Comment: Speci men Type: BLOOD SPECIMEN Ordering Facility: [facility] Address: [address] [place] [address] Performed By: #### 4 024-6, 5643-2, 3297-10 #### [facility] CLIA [id number] [address] [place] [address] [place] Calcium [Mass/Vol] 9.4 mg/dL Normal 8.5-10.2 [facility] Comment on above: Order Comment: Speci men Type: BLOOD SPECIMEN Ordering Facility: [facility] Address: [address] [place] [address] Performed By: #### 4 024-6, 5643-2, 7 #### [facility] CLIA [id number] [address] [place] [address] [place] Chloride [Moles/Vol] 103 mmol/L Normal 97-105 [facility] Comment on above: Order Comment: Speci men Type: BLOOD SPECIMEN Ordering Facility: [facility] Address: [address] [place] [address] Performed By: #### 4 024-6, 5643-2, 7 #### [facility] CLIA [id number] [address] [place] [address] [place] CO2 [Moles/Vol] 22 mmol/L Normal 22-30 [facility] Comment on above: Order Comment: Yeyo velasquez Type: BLOOD SPECIMEN Ordering Facility: [facility] Address: [address] [place] [address] Performed By: #### 4 024-6, 5643-2, 3297 #### [facility] CLIA [id number] [address] [place] [address] [place] Creatinine [Mass/Vol] 0.65 mg/dL Low 0.73-1.22 [facility] Comment on above: Order Comment: Speceli velasquez Type: BLOOD SPECIMEN Ordering Facility: [facility] Address: [address] [place] [address] Performed By: #### 4 024-6, 5643-2, 3297-10 #### [facility] CLIA [id number] [address] [place] [address] [place] Creatinine and Glomerular filtration rate.predicted panel (S/P/Bld) 128 mL/min/1.73m??? Normal >=60 [facility] Comment on above: Order Comment: Yeyo velasquez Type: BLOOD SPECIMEN Ordering Facility: [facility] Address: [address] [place] [address] Result Comment: Erica mated Glomerular Filtration Rate (eGFR) is calculated using the 2020 CKD-EPI creatinine equation. This equation utilizes serum creatinine, sex, and age as parameters. The creatinine assay has traceable calibration to isotope dilution-mass spectrometry. Refer to KDIGO guidelines for clinical interpretation. In patients with unstable renal function, e.g. those with acute kidney injury, the eGFR may not accurately reflect actual GFR. Performed By: #### 4 024-6, 5643-2, 7 #### [facility] CLIA [id number] [address] [place] [address] [place] Glucose [Mass/Vol] 78 mg/dL Normal 74-99 [facility] Comment on above: Order Comment: Yeyo velasquez Type: BLOOD SPECIMEN Ordering Facility: [facility] Address: [place] [address] Result Comment: The [place] Diabetes Association (ADA) provides guidance for cutoff values for fasting glucose and random glucose. The ADA defines fasting as no caloric intake for at least 8 hours. Fasting plasma glucose results between 100 to 125 mg/dL indicate increased risk for diabetes (prediabetes). Fasting plasma glucose results greater than or equal to 126 mg/dL meet the criteria for diagnosis of diabetes. In the absence of unequivocal hyperglycemia, results should be confirmed by repeat testing. In a patient with classic symptoms of hyperglycemia or hyperglycemic crisis, random plasma glucose results greater than or equal to 200 mg/dL meet the criteria for diagnosis of diabetes. Reference: Standards of Medical Care in Diabetes 2016, [place] Diabetes Association. Diabetes Care. 2016.39(Suppl 1). Performed By: #### 4 024-6, 5643-2, 3298-7 #### [facility] CLIA [id number] [address] [place] [address] [place] Potassium [Moles/Vol] 3.6 mmol/L Low 3.7-5.1 [facility] Comment on above: Order Comment: Yeyo velasquez Type: BLOOD SPECIMEN Ordering Facility: [facility] Address: [address] [place] [address] Performed By: #### 4 024-6, 5643-2, 3297 #### [facility] CLIA [id number] [address] [place] [address] [place] Protein [Mass/Vol] 7.1 g/dL Normal 6.3-8.0 [facility] Comment on above: Order Comment: Yeyo velasquez Type: BLOOD SPECIMEN Ordering Facility: [facility] Address: [address] [place] [address] Performed By: #### 4 024-6, 5643-2, 3298-7 #### [facility] CLIA [id number] [address] [place] [address] [place] Sodium [Moles/Vol] 138 mmol/L Normal 136-144 [facility] Comment on above: Order Comment: Yeyo velasquez Type: BLOOD SPECIMEN Ordering Facility: [facility] Address: [address] [place] [address] Performed By: #### 4 024-6, 5643-2, 3298-7 #### [facility] CLIA [id number] [address] [place] [address] [place] Urea nitrogen [Mass/Vol] 10 mg/dL Normal 9- [facility] Comment on above: Order Comment: Speci men Type: BLOOD SPECIMEN Ordering Facility: [facility] Address: [place] [id number] Performed By: #### 4 024-6, 5643-2, 3298-7 #### [facility] CLIA [id number] [address] [place] [address] [place] HISTORY PHYSICALon HISTORY PHYSICAL HNO ID: [id number] Author: Melissa De Souza MD Service: Hospital Medicine Author Type: Physician Type: HANDP Filed: 12/26/2022 6:39 AM Note Text: DEPARTMENT OF HOSPITAL MEDICINE HISTORY AND PHYSICAL EXAM AUTHOR: Melissa De Souza MD PATIENT NAME: Keke Pemberton : 1990 Primary Care Physician: No primary care provider on file. NIGHT AND WEEKEND COVERAGE: From 7am - 7pm, please call Sound Physician on duty After 7pm, please call cross cover pager #[phone] Subjective CHIEF COMPLAINT / REASON FOR ADMISSION: Ingested foreign body at retirement HPI: This is a 32 year old male has a past medical history of ADHD (attention deficit hyperactivity disorder). presented with Ingested foreign body few hours prior to arrival to the hospital. As per report, 2 hours ago he swallowed the head of his razor. He denies any SI or HI. Now having epigastric abdominal pain. The patient was seen and examined at bedside, appears alert and awake with no acute distress. Denied any resting ongoing chest pain, resting SOB, hemoptysis, productive cough, fever, ongoing palpitation, hematemesis, rectal bleeding, dharmesh, hematuria, any other and GI complaints, and any new focal neuro deficits. PAST MEDICAL HISTORY Diagnosis Date ADHD (attention deficit hyperactivity disorder) PAST SURGICAL HISTORY Procedure Laterality Date NONE FAMILY HISTORY Problem Relation Age of Onset Cancer Mother Heart Father Social History Tobacco Use Smoking status: Former Packs/day: .5 Types: Cigarettes Smokeless tobacco: Former Vaping Use Vaping Use: Never used Substance Use Topics Alcohol use: Not Currently Comment: occassional Drug use: Not Currently Types: IV TOBHX Tobacco Use: .5 packs/day Types: Cigarettes ALCHX Alcohol Use: Not Currently (occassional) DRUGHX Drug Use: Not Currently ALLERGIES: ALLERGIES No Known Allergies HOME MEDICATIONS: buPROPion SR (WELLBUTRIN SR) 150 mg 12 hr tablet, Take 150 mg by mouth twice daily., Disp: , Rfl: ROS: Pertinent positives and negatives are noted in the HPI, all other systems are reviewed and negative Objective Vitals: BP 113/80 Pulse 68 Temp (Src) 98.6 (Oral) Resp 16 Ht 5' 11 (1.80m) Wt 140 lb (63.5kg) SpO2 100% BMI 19.53 kg/(m2). O2 Therapy: Room Air Physical Exam: GENERAL: Appears tired and weak otherwise hemodynamically stable at present. HEENT: PERRLA, no icterus. OP clear and no exudates. NECK: Supple, There is no LAD or thyromegaly. JVD None. RESPIRATORY: Bilateral equal vesicular breath sound with no wheezing. Lung bases are clear. HEART: No tachycardia at bedside and regular rhythm. ABDOMEN: Soft, nondistended, has generalized tenderness. Bowel sound is present. EXTREMITIES: All peripheral pulses are present. No calf tenderness or swelling. No pedal edema is present.. NEUROLOGY: Alert and awake. No new focal neuro deficit. Admission Lab/Imaging/Procedur e workup: Most recent labs and imaging results. Results for orders placed or performed during the hospital encounter of 12/25/22 CBC Result Value Ref Range WBC 12.35 (H) 3.70 - 11.00 k/uL RBC 4.91 4.20 - 6.00 m/uL Hemoglobin 14.3 13.0 - 17.0 g/dL Hematocrit 42.4 39.0 - 51.0 % MCV 86.4 80.0 - 100.0 fL MCH 29.1 26.0 - 34.0 pg MCHC 33.7 30.5 - 36.0 g/dL RDW-CV 13.4 11.5 - 15.0 % Platelet Count 445 (H) 150 - 400 k/uL MPV 9.5 9.0 - 12.7 fL Absolute nRBC <0.01 <0.01 k/uL COMP METABOLIC PANEL Result Value Ref Range Protein, Total 7.1 6.3 - 8.0 g/dL Albumin 4.4 3.9 - 4.9 g/dL Calcium, Total 9.4 8.5 - 10.2 mg/dL Bilirubin, Total 0.3 0.2 - 1.3 mg/dL Alkaline Phosphatase 97 38 - 113 U/L AST 28 14 - 40 U/L ALT 57 (H) 10 - 54 U/L Glucose 78 74 - 99 mg/dL BUN 10 9 - 24 mg/dL Creatinine 0.65 (L) 0.73 - 1.22 mg/dL Sodium 138 136 - 144 mmol/L Potassium 3.6 (L) 3.7 - 5.1 mmol/L Chloride 103 97 - 105 mmol/L CO2 22 22 - 30 mmol/L Anion Gap 13 9 - 18 mmol/L Estimated Glomerular Filtration Rate 128 >=60 mL/min/1.73m? Present on Admission: Foreign body in stomach, initial encounter NaCl 0.9% Current Anti-Infective Meds (From admission, onward) None A decision was made to admit the patient for further evaluation and treatment Available labs/imaging/test results were reviewed by me and specific abnormalities noted as below. Assessment/Plan # Ingested Foreign body in stomach - head of his razor Vitals stable, has one blood tinged emesis NPO, IV fluid GI consult for EGD in AM PRN Iv Pain meds # Rest of the chronic medical problems are stable and will be managed with appropriately with home medications, placed nursing communication order to verify home medications before giving them to the patient. # Diet: On PO Diet # IVF's: NaCl 0.9% # Fall Precaution: Yes # Code Status: Full code # DVT Prophylaxis : - Anticoagulant AND Antiplatelet Medications (From admission, onward) Start Dose Rou (more content not included)... Normal [facility] OPERATIVE NOon 12-26-2022 OPERATIVE NO HNO ID: [id number] Author: Angel Braun MD Service: Gastroenterology Author Type: Physician Type: Operative Report Filed: 12/26/2022 12:02 PM Note Text: OPERATIVE/PROCEDURE REPORT LOG ID: [id number] SURGERY/PROCEDURE DATE: 12/26/2022 INCISION/PROCEDURE START TIME: 11:42 AM INCISION CLOSE/PROCEDURE END TIME: 11:53 AM SURGEON(S)/PROCEDURA LIST(S) AND BLINDSTITCH LINING FELLER(S): Surgeon(s) and Role: * Angel Braun MD - Primary No Additional Staff SURGERY/PROCEDURE(S) : Egd with foreign body removal ANESTHESIA: general SURGERY/PROCEDURE DETAILS: post oropharynx normal z line 40 cm ge junction intact fundus franco foreign body noted a pen taken out per os via rat tooth forceps underlying mucosa intact body antrum angularis normal duod bulb d2 was normal PRE-OP/PRE-PROCEDURE DIAGNOSIS: foreign body in stomach POST-OP/POST-PROCEDU RE DIAGNOSIS: foreign body a pen removed from stomach underlying mucosal exam normal ESTIMATED BLOOD LOSS: 0 ml SPECIMENS: None IMPLANTABLE DEVICES: NONE DRAINS: None COMPLICATIONS: None CLOSURE TECHNIQUE: Primary PARTICIPATION IN SURGERY/PROCEDURE: I/primary surgeon/proceduralis t performed the procedure with assistance. Regular diet preop meds check kub postop for other foreign body that was noted on previous x ray not noted on egd start metamucil serial kubs SIGNATURE: Angel Braun MD PATIENT NAME: Keke Pemberton DATE: December 26, 2022 TIME: 11:58 AM Normal [facility] THERAPY NTon 12-26-2022 THERAPY NT HNO ID: [id number] Author: Yogesh Lincoln PT Service: Physical Therapy Author Type: Physical Therapist Type: Therapy (PT/OT/Speech/Resp) Filed: 12/26/2022 9:00 AM Note Text: PHYSICAL THERAPY MISSED VISIT SERVICE DATE: 12/26/2022 SERVICE TIME: 0859 to 0859 ROOM: [place] [address] Patient not seen due to (no skilled needs). Patient up ambulating independently in room, patient with no acute PT needs. PT will sign off. SIGNATURE: Yogesh Lincoln, MANUEL PATIENT NAME: Keke Pemberton DATE: December 26, 2022 TIME: 9:00 AM Normal [facility] THERAPY NT HNO ID: [id number] Author: Brianna Alexis, OTR/L Service: Occupational Therapy Author Type: Occupational Therapist Type: Therapy (PT/OT/Speech/Resp) Filed: 12/26/2022 8:58 AM Note Text: OCCUPATIONAL THERAPY MISSED VISIT SERVICE DATE: 12/26/2022 SERVICE TIME: 856 to 856 ROOM: [place] [address] Patient not seen due to (no skilled needs). Per conversation with physical therapist, pt is currently functioning at his baseline with no acute therapy needs. Pt is independent with all self care and functional mobility. OT will sign off at this time. SIGNATURE: Brianna Alexis OTR/L PATIENT NAME: Keke Pemberton DATE: December 26, 2022 TIME: 8:58 AM Normal [facility] Upper GI endoscopyon 023 Upper GI endoscopy [facility] Gastrointestinal Endoscopy Patient Name: Keke Pemberton Procedure Date: 12/26/2022 11:08 AM Date of : 1990 Admit Type: Inpatient Room: OR Area Gender: Male Note Status: Finalized Attending MD: Angel Braun MD Procedure: Upper GI endoscopy Indications: Foreign body in the stomach Providers: Angel Braun MD Patient Profile: Refer to note in patient chart for documentation of history and physical. Referring Physician: Hillary Etienne (pa) (Referring MD) Medicines: General Anesthesia Complications: No immediate complications. Procedure: Pre-Anesthesia Assessment: - Prior to the procedure, a History and Physical was performed, and patient medications and allergies were reviewed. The patient is competent. The risks and benefits of the procedure and the sedation options and risks were discussed with the patient. All questions were answered and informed consent was obtained. Patient identification and proposed procedure were verified by the physician in the pre-procedure area. Mental Status Examination: alert and oriented. Airway Examination: normal oropharyngeal airway and neck mobility. Respiratory Examination: clear to auscultation. CV Examination: normal. Prophylactic Antibiotics: The patient does not require prophylactic antibiotics. Prior Anticoagulants: The patient has taken no anticoagulant or antiplatelet agents. ASA Grade Assessment: II - A patient with mild systemic disease. After reviewing the risks and benefits, the patient was deemed in satisfactory condition to undergo the procedure. The anesthesia plan was to use general anesthesia. Immediately prior to administration of medications, the patient was re-assessed for adequacy to receive sedatives. The heart rate, respiratory rate, oxygen saturations, blood pressure, adequacy of pulmonary ventilation, and response to care were monitored throughout the procedure. The physical status of the patient was re-assessed after the procedure. After obtaining informed consent, the endoscope was passed under direct vision. Throughout the procedure, the patient's blood pressure, pulse, and oxygen saturations were monitored continuously. The Endoscope was introduced through the mouth, and advanced to the second part of duodenum. I was present and participated during the entire procedure, including non-franklin portions, and during the administration and monitoring of Moderate Sedation. The upper GI endoscopy was accomplished without difficulty. The patient tolerated the procedure well. The procedure was determined to be ASGE Complexity Level 2. Moderate Sedation: Exam was performed under general anesthesia (GA) Findings: The examined esophagus was normal. Pen were found on the greater curvature of the stomach. Removal was accomplished with a rat-toothed forceps. The entire examined stomach was normal. The examined duodenum was normal. Estimated Blood Loss: Estimated blood loss: none. Impression: - Normal esophagus. - Pen were found in the stomach. Removal was successful. - Normal stomach. - Normal examined duodenum. Recommendation: - Return patient to [facility] for ongoing care. - Resume regular diet today. - Observe patient's clinical course. - Continue present medications. - Perform a flat plate and upright abdominal x-ray tomorrow. - The findings and recommendations were discussed with the patient. - The patient is not currently taking anticoagulant or antiplatelet agents. Procedure Code(s): --- Professional --- 46987, Esophagogastroduoden oscopy, flexible, transoral; with removal of foreign body(s) --- Technical --- 15564, Esophagogastroduoden oscopy, flexible, transoral; with removal of foreign body(s) Diagnosis Code(s): --- Professional --- T18.2XXA, Foreign body in stomach, initial encounter --- Technical --- T18.2XXA, Foreign body in stomach, initial encounter CPT copyright 2020 [place] [employer]. All rights reserved. The codes documented in this report are preliminary and upon price accuracy supervisor review may be revised to meet current compliance requirements. Attending Participation: I personally performed the entire procedure. Scope In: 11:41:45 AM Scope Out: 11:48:00 AM MD Angel Mcfarland MD 12/26/2022 5:28:50 PM This report has been signed electronically by Angel Braun MD Number of Addenda: 0 Note Initiated On: 12/26/2022 11:08 AM Normal [facility] XR ABDOMEN 1V SUPINEon 12-26 XR ABDOMEN 1V SUPINE * * *Final Report* * * DATE OF EXAM: Dec 26 2022 12:12PM AKO [id number] - XR ABDOMEN 1V SUPINE / PROCEDURE REASON: EVAL FOR FOREIGN BODY * * * * Physician Interpretation * * * * EXAM TITLE: X-RAY ABDOMEN DATE: December 26, 2022 CLINICAL INDICATION/HISTORY: Swallowed foreign body COMPARISON: None. TECHNIQUE: AP views of the abdomen and pelvis. FINDINGS: The pen shaped object that was present in the left upper quadrant on the x-ray performed yesterday is no longer present. Linear density overlying the left pelvis suspicious for foreign body which may be in the sigmoid colon are a loop of small bowel. There is a mildly dilated gas distended loop of small bowel in the central abdomen possibly duodenum. Bowel gas pattern is nonspecific. Osseous structures are unremarkable. IMPRESSION: Linear metallic-appearing density profiling the left pelvis suspicious for ingested foreign body. This may be in a loop of small bowel or within the sigmoid colon. The pen shaped object is present in the left upper quadrant on the prior study is no longer identified. There are few gas distended loops of small bowel in the central abdomen. These are probably distended due to EGD that was performed today. Bowel obstruction cannot be entirely excluded. Recreation Facilities Supervisor: HEAVENLY Transcribe Date/Time: Dec 26 2022 12:36P Dictated by : KEITH DUNLAP MD This examination was interpreted and the report reviewed and electronically signed by: KEITH DUNLAP MD on Dec 26 2022 12:44PM EST [id number] Normal [facility] ALLIED HEALTHon 12-25-2022 ALLIED HEALTH HNO ID: [id number] Author: Claudia Hylton RT(R) Service: Radiology Author Type: Technologist Type: Allied Health Filed: 12/25/2022 4:33 PM Note Text: Radiology Service Progress Note PATIENT NAME: Keke Pemberton DATE OF SERVICE: December 25, 2022 TIME: 4:32 PM PATIENT IDENTITY VERIFICATION COMPLETED USING TWO (2) IDENTIFIERS: Name and Date of confirmed by patient verbally and Name and Date of confirmed by identification band. FALL SCREENING: Has the patient had 2 falls in the last year or 1 fall with injury or currently using an Ambulatory Assistive Device (Walker, Cane, Wheelchair, Crutches, etc.)? Emergency Room Patient: Screened in ED PATIENT GENDER DATA: Male PATIENT RELEVANT IMPLANT DATA REVIEWED: Not Applicable RADIOLOGY DEPARTMENT: General X-ray: Exam(s) Completed: Chest X-Ray Abdomen X-Ray: Abdomen PERIPHERAL IV DATA: Not applicable SIGNED BY: RT Armando(R) December 25, 2022 4:32 PM Normal [facility] CBC W Auto Differential pane l (Bld)on 12-25-2022 Basophils (Bld) [#/Vol] 0.04 10*3/uL Normal <0.11 [facility] Comment on above: Order Comment: Speci men Type: BLOOD SPECIMENOrdering Facility: [facility] Address: [address] [place] [address] Performed By: #### 5 7021-8 ####[facility] [id number] [place] [address] [place] Basophils/100 WBC (Bld) 0.4 % Normal [facility] Comment on above: Order Comment: Speci men Type: BLOOD SPECIMENOrdering Facility: [facility] Address: [address] [place] [address] Performed By: #### 5 7021-8 ####[facility] [id number] [place] [address] [place] Differential cell count method Nom (Bld) Auto Normal [facility] Comment on above: Order Comment: Speci men Type: BLOOD SPECIMENOrdering Facility: [facility] Address: [address] [place] [address] Performed By: #### 5 7021-8 ####[facility] [id number] [place] [address] [place] Eosinophils (Bld) [#/Vol] 0.06 10*3/uL Normal <0.46 [facility] [facility] Comment on above: Order Comment: Speci men Type: BLOOD SPECIMENOrdering Facility: [facility] Address: [address] [place] [address] Performed By: #### 5 7021-8 ####MARK LABORATORYCLIA [id number] [address] Eosinophils/100 WBC (Bld) 0.6 % Normal [facility] Comment on above: Order Comment: Speci men Type: BLOOD SPECIMENOrdering Facility: [facility] Address: [address] [place] [address] Performed By: #### 5 7021-8 ####MARK LABORATORYCLIA [id number] [address] [place] Erythrocyte distribution width (RBC) [Ratio] 13.4 % Normal 11.5-15.0 [facility] Comment on above: Order Comment: Speci men Type: BLOOD SPECIMENOrdering Facility: [facility] Address: [address] [place] [address] Performed By: #### 5 7021-8 ####MARK LABORATORYCLIA [id number] [address] [place] Hematocrit (Bld) [Volume fraction] 40.5 % Normal 39.0-51.0 [facility] Comment on above: Order Comment: Speci men Type: BLOOD SPECIMENOrdering Facility: [facility] Address: [address] [place] [address] Performed By: #### 5 7021-8 ####MARK LABORATORYCLIA [id number] [address] [place] Hemoglobin (Bld) [Mass/Vol] 13.7 g/dL Normal 13.0-17.0 [facility] Comment on above: Order Comment: Speci men Type: BLOOD SPECIMENOrdering Facility: [facility] Address: [address] [place] [address] Performed By: #### 5 7021-8 ####MARK LABORATORYCLIA [id number] [address] Immature granulocytes (Bld) [#/Vol] 0.08 10*3/uL Normal <0.10 [facility] Comment on above: Order Comment: Speci men Type: BLOOD SPECIMENOrdering Facility: [facility] Address: [address] [address] Performed By: #### 5 7021-8 ####MARK LABORATORYCLIA [id number] [address] Immature granulocytes/100 WBC (Bld) 0.8 % Normal [facility] Comment on above: Order Comment: Speci men Type: BLOOD SPECIMENOrdering Facility: [facility] Address: [address] [place] [address] Performed By: #### 5 7021-8 ####MARK LABORATORYCLIA [id number] [place] [address] [facility] [place] Lymphocytes (Bld) [#/Vol] 2.59 10*3/uL Normal 1.00-4.00 [facility] Comment on above: Order Comment: Speci men Type: BLOOD SPECIMENOrdering Facility: [facility] Address: [address] [place] [address] Performed By: #### 5 7021-8 ####MARK LABORATORYCLIA [id number] [address] Lymphocytes/100 WBC (Bld) 27.1 % Normal [facility] Comment on above: Order Comment: Speci men Type: BLOOD SPECIMENOrdering Facility: [facility] Address: [address] [place] [address] Performed By: #### 5 7021-8 ####MARK LABORATORYCLIA [id number] [address] [place] MCH (RBC) [Entitic mass] 29.8 pg Normal 26.0-34.0 [facility] Comment on above: Order Comment: Speci men Type: BLOOD SPECIMENOrdering Facility: [facility] Address: [address] [place] [address] Performed By: #### 5 7021-8 ####MARK LABORATORYCLIA [id number] [address] MCHC (RBC) [Mass/Vol] 33.8 g/dL Normal 30.5-36.0 [facility] Comment on above: Order Comment: Speci men Type: BLOOD SPECIMENOrdering Facility: [facility] Address: [address] [place] [address] Performed By: #### 5 7021-8 ####MARK LABORATORYCLIA [id number] [address] [place] MCV (RBC) [Entitic vol] 88.2 fL Normal 80.0-100.0 [facility] Comment on above: Order Comment: Speci men Type: BLOOD SPECIMENOrdering Facility: [facility] Address: [address] [place] [address] Performed By: #### 5 7021-8 ####MARK LABORATORYCLIA [id number] [place] [address] [place] Monocytes (Bld) [#/Vol] 0.94 10*3/uL High <0.87 [facility] Comment on above: Order Comment: Speci men Type: BLOOD SPECIMENOrdering Facility: [facility] Address: [address] [place] [address] Performed By: #### 5 7021-8 ####MARK LABORATORYCLIA [id number] [address] [place] Monocytes/100 WBC (Bld) 9.8 % Normal [facility] Comment on above: Order Comment: Speci men Type: BLOOD SPECIMENOrdering Facility: [facility] Address: [address] [place] [address] Performed By: #### 5 7021-8 ####MARK LABORATORYCLIA [id number] [place] [address] [place] Neutrophils (Bld) [#/Vol] 5.85 10*3/uL Normal 1.45-7.50 [facility] Comment on above: Order Comment: Speci men Type: BLOOD SPECIMENOrdering Facility: [facility] Address: [address] [place] [address] Performed By: #### 5 7021-8 ####MARK LABORATORYCLIA [id number] [address] [place] Neutrophils/100 WBC (Bld) 61.3 % Normal [facility] Comment on above: Order Comment: Speci men Type: BLOOD SPECIMENOrdering Facility: [facility] Address: [address] [address] Performed By: #### 5 7021-8 ####MARK LABORATORYCLIA [id number] [place] [address] [place] Nucleated RBC (Bld) [#/Vol] 10*3/uL Normal <0.01 [facility] Comment on above: Order Comment: Speci men Type: BLOOD SPECIMENOrdering Facility: [facility] Address: [address] [address] Performed By: #### 5 7021-8 ####MARK LABORATORYCLIA [id number] [place] [address] [place] Nucleated RBC/100 WBC (Bld) [Ratio] 0.0 /100 WBC Normal [facility] Comment on above: Order Comment: Speci men Type: BLOOD SPECIMENOrdering Facility: [facility] Address: [address] [address] Performed By: #### 5 7021-8 ####MARK LABORATORYCLIA [id number] [place] [address] [place] Platelet mean volume (Bld) [Entitic vol] 8.8 fL Low 9.0-12.7 [facility] Comment on above: Order Comment: Speci men Type: BLOOD SPECIMENOrdering Facility: [facility] Address: [address] [address] Performed By: #### 5 7021-8 ####MARK LABORATORYCLIA [id number] [place] [address] [place] Platelets (Bld) [#/Vol] 402 10*3/uL High 150-400 [facility] Comment on above: Order Comment: Speci men Type: BLOOD SPECIMENOrdering Facility: [facility] Address: [address] [address] Performed By: #### 5 7021-8 ####MARK LABORATORYCLIA [id number] [place] [address] [place] RBC (Bld) [#/Vol] 4.59 10*6/uL Normal 4.20-6.00 [facility] Comment on above: Order Comment: Speci men Type: BLOOD SPECIMENOrdering Facility: [facility] Address: [address] [place] [address] Performed By: #### 5 7021-8 ####MARK LABORATORYCLIA [id number] [address] WBC (Bld) [#/Vol] 9.56 10*3/uL Normal 3.70-11.00 [facility] Comment on above: Order Comment: Speci men Type: BLOOD SPECIMENOrdering Facility: [facility] Address: [address] [place] [address] Performed By: #### 5 7021-8 ####MARK LABORATORYCLIA [id number] [address] OF [facility] Comprehensive metabolic 2000 panelon 12-25-2022 Albumin [Mass/Vol] 4.1 g/dL Normal 3.9-4.9 [facility] Comment on above: Order Comment: Speci men Type: BLOOD SPECIMENOrdering Facility: [facility] Address: [address] [place] [address] Performed By: #### 2 4323-8 ####MARK LABORATORYCLIA [id number] [address] ALP [Catalytic activity/Vol] 87 U/L Normal 38-113 [facility] Comment on above: Order Comment: Speci men Type: BLOOD SPECIMENOrdering Facility: [facility] Address: [address] [place] [address] Performed By: #### 2 4323-8 ####MARK LABORATORYCLIA [id number] [address] ALT [Catalytic activity/Vol] 52 U/L Normal 10-54 [facility] Comment on above: Order Comment: Speci men Type: BLOOD SPECIMENOrdering Facility: [facility] Address: [address] [place] [address] Performed By: #### 2 4323-8 ####AMRK LABORATORYCLIA [id number] [address] STATES [facility] Anion gap [Moles/Vol] 9 mmol/L Normal 9-18 [facility] Comment on above: Order Comment: Speci men Type: BLOOD SPECIMENOrdering Facility: [facility] Address: [address] [place] [address] Performed By: #### 2 4323-8 ####MARK LABORATORYCLIA [id number] [address] [place] AST [Catalytic activity/Vol] 23 U/L Normal 14-40 [facility] Comment on above: Order Comment: Speci men Type: BLOOD SPECIMENOrdering Facility: [facility] Address: [address] [place] [address] Performed By: #### 2 4323-8 ####MARK LABORATORYCLIA [id number] [address] STATES [facility] Bilirubin [Mass/Vol] 0.2 mg/dL Normal 0.2-1.3 [facility] Comment on above: Order Comment: Speci men Type: BLOOD SPECIMENOrdering Facility: [facility] Address: [address] [place] [address] Performed By: #### 2 4323-8 ####MARK LABORATORYCLIA [id number] [address] Calcium [Mass/Vol] 9.4 mg/dL Normal 8.5-10.2 [facility] Comment on above: Order Comment: Speci men Type: BLOOD SPECIMENOrdering Facility: [facility] Address: [address] [place] [address] Performed By: #### 2 4323-8 ####MARK LABORATORYCLIA [id number] [address] [place] [facility] Chloride [Moles/Vol] 101 mmol/L Normal 97-105 [facility] Comment on above: Order Comment: Speci men Type: BLOOD SPECIMENOrdering Facility: [facility] Address: [address] [place] [address] Performed By: #### 2 4323-8 ####MAKR LABORATORYCLIA [id number] [address] [place] CO2 [Moles/Vol] 26 mmol/L Normal 22-30 [facility] Comment on above: Order Comment: Yeyo velasquez Type: BLOOD SPECIMENOrdering Facility: [facility] Address: [address] [address] Performed By: #### 2 4323-8 ####MARK LABORATORYCLIA [id number] [address] [place] Creatinine [Mass/Vol] 0.63 mg/dL Low 0.73-1.22 [facility] Comment on above: Order Comment: Yeyo velasquez Type: BLOOD SPECIMENOrdering Facility: [facility] Address: [address] [place] [address] Performed By: #### 2 4323-8 ####MARK LABORATORYCLIA [id number] [address] Creatinine and Glomerular filtration rate.predicted panel (S/P/Bld) 130 mL/min/1.73m??? Normal >=60 [facility] Comment on above: Order Comment: Yeyo velasquez Type: BLOOD SPECIMENOrdering Facility: [facility] Address: [address] [place] [address] Result Comment: Erica mated Glomerular Filtration Rate (eGFR) is calculated using the 2020 CKD-EPI creatinine equation. This equation utilizes serum creatinine, sex, and age as parameters. The creatinine assay has traceable calibration to isotope dilution-mass spectrometry. Refer to KDIGO guidelines for clinical interpretation. In patients with unstable renal function, e.g. those with acute kidney injury, the eGFR may not accurately reflect actual GFR. Performed By: #### 2 4323-8 ####MARK LABORATORYCLIA [id number] [address] [place] Glucose [Mass/Vol] 98 mg/dL Normal 74-99 [facility] Comment on above: Order Comment: Arianeeli velasquez Type: BLOOD SPECIMENOrdering Facility: [facility] Address: [address] [place] [address] Result Comment: The [place] Diabetes Association (ADA) provides guidance for cutoff values for fasting glucose and random glucose. The ADA defines fasting as no caloric intake for at least 8 hours. Fasting plasma glucose results between 100 to 125 mg/dL indicate increased risk for diabetes (prediabetes). Fasting plasma glucose results greater than or equal to 126 mg/dL meet the criteria for diagnosis of diabetes. In the absence of unequivocal hyperglycemia, results should be confirmed by repeat testing. In a patient with classic symptoms of hyperglycemia or hyperglycemic crisis, random plasma glucose results greater than or equal to 200 mg/dL meet the criteria for diagnosis of diabetes. Reference: Standards of Medical Care in Diabetes 2016, [place] Diabetes Association. Diabetes Care. 2016.39(Suppl 1). Performed By: #### 2 4323-8 ####MARK LABORATORYCLIA [id number] [place] [address] [place] Potassium [Moles/Vol] 4.4 mmol/L Normal 3.7-5.1 [facility] Comment on above: Order Comment: Yeyo velasquez Type: BLOOD SPECIMENOrdering Facility: [facility] Address: [address] [place] [address] Performed By: #### 2 4323-8 ####MARK LABORATORYCLIA [id number] [place] [address] [place] Protein [Mass/Vol] 6.9 g/dL Normal 6.3-8.0 [facility] Comment on above: Order Comment: Yeyo velasquez Type: BLOOD SPECIMENOrdering Facility: [facility] Address: [address] [place] [address] Performed By: #### 2 4323-8 ####MARK LABORATORYCLIA [id number] [place] [address] [place] Sodium [Moles/Vol] 136 mmol/L Normal 136-144 [facility] Comment on above: Order Comment: Arianei eva Type: BLOOD SPECIMENOrdering Facility: [facility] Address: [address] [address] Performed By: #### 2 4323-8 ####MARK LABORATORYCLIA [id number] [place] [address] [place] Urea nitrogen [Mass/Vol] 10 mg/dL Normal 9-24 [facility] Comment on above: Order Comment: Arianei men Type: BLOOD SPECIMENOrdering Facility: [facility] Address: [address] [place] [address] Performed By: #### 2 4323-8 ####[facility] LABORATORYCLIA [id number] [place] [address] [facility] ED NOTEon 12-25-2022 ED NOTE HNO ID: [id number] Author: Castillo Parikh RN Service: Nursing Author Type: Registered Nurse Type: ED Notes Filed: 12/25/2022 6:33 PM Note Text: Report to DEMARCO Sullivan at [facility]. No questions at this time. [facility] ED NOTE HNO ID: [id number] Author: Nilda Ordoñez RN Service: Nursing Author Type: Registered Nurse Type: ED Notes Filed: 12/25/2022 6:27 PM Note Text: PIV ws removed. Pt ambulated out of the ED with MCSO to be transferred to [facility] ED. [facility] ED NOTE HNO ID: [id number] Author: Nilda Ordoñez RN Service: Nursing Author Type: Registered Nurse Type: ED Notes Filed: 12/25/2022 3:09 PM Note Text: Pt denies SI. States that he's not too sure why he did it but he has no thoughts of killing himself [facility] ED NOTE HNO ID: [id number] Author: Nilda Ordoñez RN Service: Nursing Author Type: Registered Nurse Type: ED Notes Filed: 12/25/2022 3:08 PM Note Text: From [facility] retirement. Pt admits to swallowing a razor blade approx 2 hours ago in the retirement. C/O abd pain Normal [facility] ED PROV NOTEon 12-25-2022 ED PROV NOTE HNO ID: [id number] Author: Hillary Etienne PA-C Service: Emergency Medicine Author Type: Physician Fitness Trainer Type: ED Provider Notes Filed: 12/25/2022 6:18 PM Note Text: Attestation signed by Sunshine Donovan DO at 12/26/2022 1:19 AM Attending Note I have personally performed a face to face assessment of the patient and have reviewed the JOHN note. I performed a substantive portion of the visit including all aspects of the following. My franklin findings include: Medical Decision Making the patient presented to the ED for suspected foreign body swallowed. Please see PA note for further details. Hemodynamically stable, heart rate regular without murmurs or gallops, lungs clear to auscultation bilaterally, abdomen soft nontender nondistended. The patient is well-known this is happened multiple times where he continues to swallow sharp objects. Patient will be transferred for gastroenterology evaluation and management. Signature: Sunshine Donovan DO Date: 12/26/2022 Time: 1:18 AM ED Provider Note Patient Name: Keke Pemberton : 1990 SERVICE DATE: 12/25/22 History Patient presents with: Foreign Body Ingestion 32-year-old male, with a history of ADHD, presents from [facility] for foreign body that he swallowed. He states about 2 hours ago he swallowed the head of his razor. He does not know why he does this. This is a repeated offense. He denies any SI or HI. He complains of epigastric abdominal pain and states he had emesis x1 that was blood-tinged. History provided by: Patient and police PAST MEDICAL HISTORY Diagnosis Date - ADHD (attention deficit hyperactivity disorder) PAST SURGICAL HISTORY Procedure Laterality Date - NONE FAMILY HISTORY Problem Relation Age of Onset - Cancer Mother - Heart Father Social History Tobacco Use - Smoking status: Former Packs/day: .5 Types: Cigarettes - Smokeless tobacco: Former Vaping Use - Vaping Use: Never used Substance and Sexual Activity - Alcohol use: Not Currently Comment: occassional - Drug use: Not Currently Types: IV - Sexual activity: Not on file ALLERGIES No Known Allergies Review of Systems Constitutional: Negative for chills and fever. HENT: Negative. Eyes: Negative for photophobia and visual disturbance. Respiratory: Negative for cough and shortness of breath. Cardiovascular: Negative for chest pain. Gastrointestinal: Positive for abdominal pain, nausea and vomiting. Negative for anal bleeding, blood in stool, constipation and diarrhea. Genitourinary: Negative for difficulty urinating and dysuria. Musculoskeletal: Negative for back pain. Skin: Negative for rash and wound. Neurological: Negative for weakness, light-headedness, numbness and headaches. Hematological: Negative. Psychiatric/Behavior al: Negative. Physical Exam Vitals [12/25/22 1505] BP Pulse Temp Temp src Resp SpO2 Weight Height 109/77 82 36.9 ?C (98.5 ?F) Oral 17 100 % 77.1 kg (170 lb) -- Physical Exam Vitals and nursing note reviewed. Constitutional: General: He is not in acute distress. Appearance: Normal appearance. He is not toxic-appearing. HENT: Head: Normocephalic and atraumatic. Nose: Nose normal. Mouth/Throat: Mouth: Mucous membranes are moist. Pharynx: Oropharynx is clear. Eyes: Extraocular Movements: Extraocular movements intact. Conjunctiva/sclera: Conjunctivae normal. Cardiovascular: Rate and Rhythm: Normal rate and regular rhythm. Pulmonary: Effort: Pulmonary effort is normal. Breath sounds: Normal breath sounds. Abdominal: General: There is no distension. Palpations: Abdomen is soft. Tenderness: There is abdominal tenderness (epigastric). There is no guarding. Musculoskeletal: General: Normal range of motion. Cervical back: Normal range of motion and neck supple. No rigidity. Skin: Coloration: Skin is not pale. Neurological: General: No focal deficit present. Mental Status: He is alert and oriented to person, place, and time. Cranial Nerves: No cranial nerve deficit. Psychiatric: Mood and Affect: Mood normal. Diagnostic Testing ED Labs Ordered and Reviewed - No data to display Procedures ED Course / Clinical Impression Clinical Impressions as of 12/25/22 1816 Foreign body in stomach Epigastric pain Nausea and vomiting, unspecified vomiting type MDM / Disposition / Plan Patient presents to the ED with with swallowing foreign body that was purposeful. No real intent such as SI. He is in retirement and this is seemingly behavioral. X-ray shows concerning for a pen and also razor blade as he admits to swallowing the tip of a thick razor today. He is having epigastric pain and had 1 episode of vomiting that he states was blood-tinged. Discussed with (more content not included)... Normal [facility] PT panel Coag (PPP)on 2022 INR Coag (PPP) [Relative time] 1.0 {INR} Normal 0.9-1.3 [facility] Comment on above: Order Comment: Speci eva Type: BLOOD SPECIMENOrdering Facility: [facility] Address: [address] [id number] Result Comment: Madyson min K Antagonist (VKA) Therapeutic Range: INR 2 to 3 (Target INR of 2.5) Note: For patients treated with VKA drugs, such as warfarin, the [place] [employer] 2012 Guideline recommends a therapeutic INR range of 2 to 3 (target INR of 2.5). This recommendation includes high-risk patients with antiphospholipid syndrome with previous arterial or venous thromboembolism, current-generation mechanical or bioprosthetic aortic heart valve replacement. Note: Patients with mechanical aortic valve replacement and additional risk factors for thromboembolic events (atrial fibrillation, previous thromboembolism, LV dysfunction, hypercoagulable conditions) or an older generation mechanical AVR (i.e., ball in-Cage) or any mechanical MVR should have a INR therapeutic range of 2.5 to 3.5 (target INR of 3). Thad REYNOSO, et al. Chest 2012, 141:7S-47S Christina RA, et al. [facility] 2017, 70: 252-289 Performed By: #### 3 4528-0, 59951-1 ####[facility] LABORATORYCLIA [id number] [address] STATES OF [facility] PT Coag (PPP) [Time] 10.3 s Normal 9.7-13.0 [facility] Comment on above: Order Comment: Yeyo velasquez Type: BLOOD SPECIMENOrdering Facility: [facility] Address: [address] [place] [address] Performed By: #### 3 4528-0, 71050-8 ####[facility] LABORATORYCLIA [id number] [address] [address] XR ACUTE ABD SERIES 2V ABD+C XRon 12-25-2022 XR ACUTE ABD SERIES 2V ABD+CXR * * *Final Report* * * DATE OF EXAM: Dec 25 2022 4:32PM MDX 5359 - XR ACUTE ABD SERIES 2V ABD+CXR / PROCEDURE REASON: Foreign body in alimentary tract * * * * Physician Interpretation * * * * XR ACUTE ABD SERIES 2V ABD+CXR HISTORY: Indication: Foreign body in alimentary tract TECHNIQUE: Views obtained: XR ACUTE ABD SERIES 2V ABD+CXR Comparison: 12/09/2022 RESULT: Findings: Chest x-ray findings: No acute pathology in the heart and lungs. Abdomen findings: * There is a radiopaque object measuring 3.6 cm x 0.7 cm and the LEFT upper quadrant has multiple holes. Uncertain what this represents * There is also a tubular device with a metallic tip may represent a pen projecting over the LEFT upper quadrant * Change in metallic and calcific obscures evaluation of the pelvis No abnormal calcifications are seen. The bowel gas pattern is nonspecific and unremarkable.. No bony abnormalities are seen .No free air is seen. IMPRESSION: 1. There are 2 radiopaque foreign bodies noted projecting over the mid and upper abdomen 2. Metallic chain and handcuffs superior evaluation of the pelvis 3. No free air [employer] Facilities Supervisor: HEAVENLY Transcribe Date/Time: Dec 25 2022 4:50P Dictated by : ISAK THOMPSON DO This examination was interpreted and the report reviewed and electronically signed by: ISAK THOMPSON DO on Dec 25 2022 4:55PM EST [id number] Normal [facility] aPTT PPPon 12-25-2022 aPTT Coag (PPP) [Time] 24.5 s Normal 23.0-32.4 [facility] Comment on above: Order Comment: Speci men Type: BLOOD SPECIMENOrdering Facility: [facility] Address: [place] [address] Performed By: #### 3 4528-0, 50335-7 ####[facility] LABORATORYCLIA [id number] [place] [address] [facility] ALLIED HEALTHon 12-09-2022 ALLIED HEALTH HNO ID: [id number] Author: Garland David RT(R) Service: Radiology Author Type: Technologist Type: Allied Health Filed: 12/09/2022 6:27 AM Note Text: Radiology Service Progress Note PATIENT NAME: Keke Pemberton DATE OF SERVICE: December 09, 2022 TIME: 6:27 AM PATIENT IDENTITY VERIFICATION COMPLETED USING TWO (2) IDENTIFIERS: Name and Date of confirmed by patient verbally and Name and Date of confirmed by identification band. FALL SCREENING: Has the patient had 2 falls in the last year or 1 fall with injury or currently using an Ambulatory Assistive Device (Walker, Cane, Wheelchair, Crutches, etc.)? Emergency Room Patient: Screened in ED PATIENT GENDER DATA: Male PATIENT RELEVANT IMPLANT DATA REVIEWED: Not Applicable RADIOLOGY DEPARTMENT: General X-ray: Exam(s) Completed: Abdomen X-Ray: Abdomen PERIPHERAL IV DATA: Not applicable SIGNED BY: RT Debbie(R) December 09, 2022 6:27 AM Normal [facility] APAP SerPl-mCncon 12-09-2022 Acetaminophen [Mass/Vol] ug/mL Low 10-30 [facility] Comment on above: Order Comment: Yeyo velasquez Type: BLOOD SPECIMEN Ordering Facility: [facility] Address: [address] [place] [id number] Result Comment: Toxi c > 150 ug/mL 4 hours post ingestion The Uday Trent nomogram can be used to estimate the probability of hepatotoxicity via the relationship of plasma acetaminophen concentration to the post ingestion interval. (Lizy. Pediatrics. 1975. 55:871 to 876 and Uday et al. [employer]er Med. 1981. 141:380 to 385). Reference ranges and high/low indicator flags are provided as general guidelines only. The treating physician must determine appropriate target levels/dosing based on the specific clinical situation. Performed By: #### 4 024-6, 5643-2, 3298-7 #### [facility] CLIA [id number] [address] [place] [id number] [place] Basic metabolic 2000 panelon 12-09-2022 Anion gap [Moles/Vol] 9 mmol/L Normal 9-18 [facility] Comment on above: Order Comment: Speci men Type: BLOOD SPECIMEN Ordering Facility: [facility] Address: [address] [place] [address] Performed By: #### 2 4321-2 #### [facility] CLIA [id number] [address] [place] Calcium [Mass/Vol] 9.0 mg/dL Normal 8.5-10.2 [facility] Comment on above: Order Comment: Speci men Type: BLOOD SPECIMEN Ordering Facility: [facility] Address: [address] [place] [address] Performed By: #### 2 4321-2 #### [facility] CLIA [id number] [address] [place] Chloride [Moles/Vol] 105 mmol/L Normal 97-105 [facility] Comment on above: Order Comment: Speci men Type: BLOOD SPECIMEN Ordering Facility: [facility] Address: [address] [place] [address] Performed By: #### 2 4321-2 #### [facility] CLIA [id number] [address] [place] CO2 [Moles/Vol] 29 mmol/L Normal 22-30 [facility] Comment on above: Order Comment: Speci men Type: BLOOD SPECIMEN Ordering Facility: [facility] Address: [address] [place] [address] Performed By: #### 2 4321-2 #### [facility] CLIA [id number] [address] [place] Creatinine [Mass/Vol] 0.75 mg/dL Normal 0.73-1.22 [facility] Comment on above: Order Comment: Speci men Type: BLOOD SPECIMEN Ordering Facility: [facility] Address: [address] [place] [address] Performed By: #### 2 4321-2 #### [facility] CLIA [id number] [address] [place] ESTIMATED GLOMERULAR FILTRATION RATE 123 mL/min/1.73m??? Normal >=60 [facility] Comment on above: Order Comment: Yeyo velasquez Type: BLOOD SPECIMEN Ordering Facility: [facility] Address: [place] [address] Result Comment: Erica mated Glomerular Filtration Rate (eGFR) is calculated using the 2020 CKD-EPI creatinine equation. This equation utilizes serum creatinine, sex, and age as parameters. The creatinine assay has traceable calibration to isotope dilution-mass spectrometry. Refer to KDIGO guidelines for clinical interpretation. In patients with unstable renal function, e.g. those with acute kidney injury, the eGFR may not accurately reflect actual GFR. Performed By: #### 2 4321-2 #### [facility] CLIA [id number] [address] [place] [address] [place] Glucose [Mass/Vol] 119 mg/dL High 74-99 [facility] Comment on above: Order Comment: Yeyo velasquez Type: BLOOD SPECIMEN Ordering Facility: [facility] Address: [address] [place] [address] Result Comment: The [place] Diabetes Association (ADA) provides guidance for cutoff values for fasting glucose and random glucose. The ADA defines fasting as no caloric intake for at least 8 hours. Fasting plasma glucose results between 100 to 125 mg/dL indicate increased risk for diabetes (prediabetes). Fasting plasma glucose results greater than or equal to 126 mg/dL meet the criteria for diagnosis of diabetes. In the absence of unequivocal hyperglycemia, results should be confirmed by repeat testing. In a patient with classic symptoms of hyperglycemia or hyperglycemic crisis, random plasma glucose results greater than or equal to 200 mg/dL meet the criteria for diagnosis of diabetes. Reference: Standards of Medical Care in Diabetes 2016, [place] Diabetes Association. Diabetes Care. 2016.39(Suppl 1). Performed By: #### 2 4321-2 #### [facility] CLIA [id number] [address] [place] [address] [place] Potassium [Moles/Vol] 3.8 mmol/L Normal 3.7-5.1 [facility] Comment on above: Order Comment: Yeyo velasquez Type: BLOOD SPECIMEN Ordering Facility: [facility] Address: [place] [address] Performed By: #### 2 4321-2 #### [facility] CLIA [id number] [address] STATES [facility] Sodium [Moles/Vol] 143 mmol/L Normal 136-144 [facility] Comment on above: Order Comment: Speci men Type: BLOOD SPECIMEN Ordering Facility: [facility] Address: [address] [place] [address] Performed By: #### 2 4321-2 #### [facility] CLIA [id number] [address] STATES [facility] Urea nitrogen [Mass/Vol] 9 mg/dL Normal 9-24 [facility] Comment on above: Order Comment: Speci men Type: BLOOD SPECIMEN Ordering Facility: [facility] Address: [address] [place] [address] Performed By: #### 2 4321-2 #### [facility] CLIA [id number] [address] CBC W Auto Differential pane l (Bld)on 12-09-2022 Basophils (Bld) [#/Vol] 0.04 10*3/uL Normal <0.11 [facility] Comment on above: Order Comment: Speci men Type: BLOOD SPECIMEN Ordering Facility: [facility] Address: [address] [place] [address] Performed By: #### 5 7021-8 #### [facility] CLIA [id number] [address] [place] [address] Basophils/100 WBC (Bld) 0.4 % Normal [facility] Comment on above: Order Comment: Speci men Type: BLOOD SPECIMEN Ordering Facility: [facility] Address: [address] [place] [address] Performed By: #### 5 7021-8 #### [facility] CLIA [id number] [address] Differential cell count method Nom (Bld) Auto Normal [facility] Comment on above: Order Comment: Speci men Type: BLOOD SPECIMEN Ordering Facility: [facility] Address: [address] [place] [address] Performed By: #### 5 7021-8 #### [facility] CLIA [id number] [address] Eosinophils (Bld) [#/Vol] 0.45 10*3/uL Normal <0.46 [facility] Comment on above: Order Comment: Speci men Type: BLOOD SPECIMEN Ordering Facility: [facility] Address: [address] [place] [place] [address] Performed By: #### 5 7021-8 #### [facility] CLIA [id number] [address] Eosinophils/100 WBC (Bld) 4.2 % Normal [facility] Comment on above: Order Comment: Speci men Type: BLOOD SPECIMEN Ordering Facility: [facility] Address: [address] [place] [address] Performed By: #### 5 7021-8 #### [facility] CLIA [id number] [address] Erythrocyte distribution width (RBC) [Ratio] 13.1 % Normal 11.5-15.0 [facility] Comment on above: Order Comment: Speci men Type: BLOOD SPECIMEN Ordering Facility: [facility] Address: [address] [place] [address] Performed By: #### 5 7021-8 #### [facility] CLIA [id number] [address] OF [facility] Hematocrit (Bld) [Volume fraction] 36.5 % Low 39.0-51.0 [facility] Comment on above: Order Comment: Speci men Type: BLOOD SPECIMEN Ordering Facility: [facility] Address: [address] [place] [address] Performed By: #### 5 7021-8 #### [facility] CLIA [id number] [address] [place] Hemoglobin (Bld) [Mass/Vol] 12.1 g/dL Low 13.0-17.0 [facility] Comment on above: Order Comment: Speci men Type: BLOOD SPECIMEN Ordering Facility: [facility] Address: [address] [place] [address] Performed By: #### 5 7021-8 #### [facility] CLIA [id number] [address] Immature granulocytes (Bld) [#/Vol] 0.05 10*3/uL Normal <0.10 [facility] Comment on above: Order Comment: Speci men Type: BLOOD SPECIMEN Ordering Facility: [facility] Address: [address] [place] [address] Performed By: #### 5 7021-8 #### [facility] CLIA [id number] [address] Immature granulocytes/100 WBC (Bld) 0.5 % Normal [facility] Comment on above: Order Comment: Speci men Type: BLOOD SPECIMEN Ordering Facility: [facility] Address: [address] [place] [address] Performed By: #### 5 7021-8 #### [facility] CLIA [id number] [address] Lymphocytes (Bld) [#/Vol] 3.57 10*3/uL Normal 1.00-4.00 [facility] Comment on above: Order Comment: Speci men Type: BLOOD SPECIMEN Ordering Facility: [facility] Address: [address] [place] [address] Performed By: #### 5 7021-8 #### [facility] CLIA [id number] [address] Lymphocytes/100 WBC (Bld) 33.1 % Normal [facility] Comment on above: Order Comment: Speci men Type: BLOOD SPECIMEN Ordering Facility: [facility] Address: [address] [place] [address] Performed By: #### 5 7021-8 #### [facility] CLIA [id number] [address] [place] MCH (RBC) [Entitic mass] 29.8 pg Normal 26.0-34.0 [facility] Comment on above: Order Comment: Speci men Type: BLOOD SPECIMEN Ordering Facility: [facility] Address: [address] [place] [address] Performed By: #### 5 7021-8 #### [facility] CLIA [id number] [address] MCHC (RBC) [Mass/Vol] 33.2 g/dL Normal 30.5-36.0 [facility] Comment on above: Order Comment: Speci men Type: BLOOD SPECIMEN Ordering Facility: [facility] Address: [address] [place] [address] Performed By: #### 5 7021-8 #### [facility] CLIA [id number] [address] MCV (RBC) [Entitic vol] 89.9 fL Normal 80.0-100.0 [facility] Comment on above: Order Comment: Speci men Type: BLOOD SPECIMEN Ordering Facility: [facility] Address: [address] [place] [address] Performed By: #### 5 7021-8 #### [facility] CLIA [id number] [address] Monocytes (Bld) [#/Vol] 0.96 10*3/uL High <0.87 [facility] Comment on above: Order Comment: Speci men Type: BLOOD SPECIMEN Ordering Facility: [facility] Address: [address] [place] [place] [address] Performed By: #### 5 7021-8 #### [facility] CLIA [id number] [address] Monocytes/100 WBC (Bld) 8.9 % Normal [facility] Comment on above: Order Comment: Speci men Type: BLOOD SPECIMEN Ordering Facility: [facility] Address: [address] [place] [address] Performed By: #### 5 7021-8 #### [facility] CLIA [id number] [address] [place] Neutrophils (Bld) [#/Vol] 5.72 10*3/uL Normal 1.45-7.50 [facility] Comment on above: Order Comment: Speci men Type: BLOOD SPECIMEN Ordering Facility: [facility] Address: [address] [place] [address] Performed By: #### 5 7021-8 #### [facility] CLIA [id number] [address] [place] Neutrophils/100 WBC (Bld) 52.9 % Normal [facility] Comment on above: Order Comment: Speci men Type: BLOOD SPECIMEN Ordering Facility: [facility] Address: [address] [place] [address] Performed By: #### 5 7021-8 #### [facility] CLIA [id number] [address] [place] Nucleated RBC (Bld) [#/Vol] 10*3/uL Normal <0.01 [facility] Comment on above: Order Comment: Speci men Type: BLOOD SPECIMEN Ordering Facility: [facility] Address: [address] [place] [address] Performed By: #### 5 7021-8 #### [facility] CLIA [id number] [address] Nucleated RBC/100 WBC (Bld) [Ratio] 0.0 /100 WBC Normal [facility] Comment on above: Order Comment: Speci men Type: BLOOD SPECIMEN Ordering Facility: [facility] Address: [address] [place] [address] Performed By: #### 5 7021-8 #### [facility] CLIA [id number] [address] [place] Platelet mean volume (Bld) [Entitic vol] 9.4 fL Normal 9.0-12.7 [facility] Comment on above: Order Comment: Speci men Type: BLOOD SPECIMEN Ordering Facility: [facility] Address: [address] [place] [place] [address] Performed By: #### 5 7021-8 #### [facility] CLIA [id number] [address] Platelets (Bld) [#/Vol] 279 10*3/uL Normal 150-400 [facility] Comment on above: Order Comment: Speci men Type: BLOOD SPECIMEN Ordering Facility: [facility] Address: [address] [place] [place] [address] Performed By: #### 5 7021-8 #### [facility] CLIA [id number] [address] RBC (Bld) [#/Vol] 4.06 10*6/uL Low 4.20-6.00 [facility] Comment on above: Order Comment: Speci men Type: BLOOD SPECIMEN Ordering Facility: [facility] Address: [address] [place] [address] Performed By: #### 5 7021-8 #### [facility] CLIA [id number] [address] WBC (Bld) [#/Vol] 10.79 10*3/uL Normal 3.70-11.00 [facility] Comment on above: Order Comment: Speci men Type: BLOOD SPECIMEN Ordering Facility: [facility] Address: [address] [place] [address] Performed By: #### 5 7021-8 #### [facility] CLIA [id number] [address] [place] [address] OF [facility] CT ABD/PEL WO IVCONon 2022 CT ABD/PEL WO IVCON * * *Final Report* * * DATE OF EXAM: Dec 09 2022 7:07AM [facility] 0531 - CT ABD/PEL WO IVCON / PROCEDURE REASON: Foreign body, colon * * * * Physician Interpretation * * * * EXAMINATION: CT ABDOMEN AND PELVIS WITHOUT IV CONTRAST CLINICAL HISTORY: 32-year-old male presenting to the emergency department for evaluation of foreign body ingestion. Patient ingested a half of a razor blade that was wrapped in a plastic garbage bag 2 days ago to get himself out of retirement. TECHNIQUE: Non-IV contrast imaging of the abdomen and pelvis is performed using standard technique, scanning from just above the dome of the diaphragm to the symphysis pubis. Unenhanced imaging is limited for the evaluation of intra-abdominal and pelvic pathology. MQ: CTAPWO_3 Contrast: IV: None : ml of CT Radiation dose: Integrated Dose-length product (DLP) for this visit = 317 mGy*cm. CT Dose Reduction Employed: Automated exposure control(AEC) and iterative recon COMPARISON: CT abdomen and pelvis 12/04/2022. RESULT: Abdomen / Pelvis: Liver: Unremarkable. Biliary: No bile duct dilatation. Spleen: No splenomegaly. Pancreas: Unremarkable. Adrenals: No mass. Kidneys: No calculus. No hydronephrosis. GI Tract: Radiopaque foreign body seen within the stomach on comparison CT abdomen and pelvis 12/04/2022 is no longer visualized. There is no radiopaque foreign body otherwise seen within bowel. Nondilated small bowel. Diffuse moderate colonic stool. Decompressed distal sigmoid colon with mild air distended rectum. Lymph Nodes: No lymphadenopathy. Mesentery/peritoneum : No free peritoneal air. Retroperitoneum: No mass. Vasculature: No abdominal aortic or iliac artery aneurysm. Pelvis: No mass or ascites. Bones/Soft Tissues: No acute abnormality. Lower thorax: Unremarkable. Tufting Machine Operator (topogram) images: No additional findings. IMPRESSION: No radiopaque foreign body appreciated within bowel. Diffuse moderate colonic stool with mild air distended rectum. [employer] Facilities Supervisor: HEAVENLY Transcribe Date/Time: Dec 09 2022 7:20A Dictated by : MIGUEL JANE MD This examination was interpreted and the report reviewed and electronically signed by: MIGUEL JANE MD on Dec 09 2022 7:32AM EST [id number] CN Normal [facility] ED NOTEon 12-09-2022 ED NOTE HNO ID: [id number] Author: Josh Del Real, RN Service: Emergency Medicine Author Type: Registered Nurse Type: ED Notes Filed: 12/09/2022 7:08 AM Note Text: Pt back from CT Normal [facility] ED NOTE HNO ID: [id number] Author: Josh Del Real RN Service: Emergency Medicine Author Type: Registered Nurse Type: ED Notes Filed: 12/09/2022 7:08 AM Note Text: Pt to CT in cartt [facility] ED NOTE HNO ID: [id number] Author: Josh Del Real RN Service: Emergency Medicine Author Type: Registered Nurse Type: ED Notes Filed: 12/09/2022 6:55 AM Note Text: CT notified of patient [facility] ED NOTE HNO ID: [id number] Author: Josh Del Real RN Service: Emergency Medicine Author Type: Registered Nurse Type: ED Notes Filed: 12/09/2022 6:45 AM Note Text: PT to XR via cart w transport. [facility] ED NOTE HNO ID: [id number] Author: Josh Del Real RN Service: Emergency Medicine Author Type: Registered Nurse Type: ED Notes Filed: 12/09/2022 6:20 AM Note Text: XR notified of patient [facility] ED NOTE HNO ID: [id number] Author: Lucy Paris RN Service: ? Author Type: Registered Nurse Type: ED Notes Filed: 12/09/2022 5:32 AM Note Text: Bed: [facility] Expected date: Expected time: Means of arrival: Comments: only [facility] ED NOTE HNO ID: [id number] Author: Merline Marquez RN Service: ? Author Type: Registered Nurse Type: ED Notes Filed: 12/09/2022 3:48 AM Note Text: Dr Walters in to assess patient, patient and visitor was not in room. RN looked in lobby, room and bathrooms. Pt was not anywhere to be found. Pt marked as eloped, therefore unable to do vitals prior to leaving. [facility] ED PROV NOTEon 12-09-2022 ED PROV NOTE HNO ID: [id number] Author: Amado Mchugh DO Service: ? Author Type: Physician Type: ED Provider Notes Filed: 12/09/2022 7:54 AM Note Text: Care for this patient was assumed from the previous provider. I have reviewed the case and plan for the patient. Any pertinent finding or changes in the patient's condition are documented below. The patient is a 32-year-old male presenting to the emergency department for evaluation of possible foreign body. The patient was initially seen by Dr. Woodward and signed out to me. The patient has been followed over the past week for foreign body ingestion. The patient allegedly swallowed a bag of razor blades. He has been seen multiple times including 12-04 when he was admitted to the hospital, 12-05, 12-07, and today. He has had both x-ray imaging and CT imaging of the abdomen and pelvis. At time of signout, CT abdomen and pelvis was pending. KUB x-ray head not visualized any foreign body which was presumed to have passed. CT imaging of the abdomen and pelvis shows no evidence of radiopaque foreign body identifiable in the bowel. The patient does have a moderate amount of colonic stool and mild air distention in the rectum. On reassessment, the patient is nontoxic in appearance. He is hemodynamically stable. He is resting comfortably on his cell phone. He was made aware of results of imaging. He does report endorse experiencing bowel movements. The patient has been cleared for discharge at this time. He is provided with return precautions. He is welcome to return for any worsening or recurrence of symptoms. AMADO MCHUGH 12/09/22 0754 Normal [facility] ED PROV NOTE HNO ID: [id number] Author: Amado Mchugh DO Service: Emergency Medicine Author Type: Physician Type: ED Provider Notes Filed: 12/09/2022 10:04 AM Note Text: Patient signed out to me by Dr. Brandt at 0700. In short this is a 32 year old male who presents to the ED for FB ingestion. He ingested a razor blade 2 days ago and has been evaluated in the ED multiple times for this. Now he is complaining of abdominal pressure and constipation. No n/v. Abdominal XR did not visualize previously seen FB. At the time of signout, workup is pending CTAP. CT abdomen pelvis did not show any radiopaque foreign body. It did show that the patient was constipated however. I discussed the results with the patient. He is in no acute distress resting comfortably. I prescribed him MiraLAX for his constipation. He was instructed to follow-up with his primary doctor and take MiraLAX as directed. Return precautions provided. All questions answered. MARIAN MCGRAW 12/09/22 7867 I performed a history and physical examination of the patient and discussed the management with the resident. I reviewed the resident's note and agree with the documented findings and plan of care. AMADO MCHUGH 12/09/22 1004 Normal [facility] ED PROV NOTE HNO ID: [id number] Author: Prachi Woodward MD Service: Emergency Medicine Author Type: Physician Type: ED Provider Notes Filed: 12/14/2022 3:03 PM Note Text: ED Provider Note Patient Name: Keke Pemberton : 1990 SERVICE DATE: 12/09/22 History Patient presents with: Foreign Body Ingestion: Pt presents to ED via [facility]. Pt ingested razor blades a few days prior in an attempt to get himself out of retirement. He had multiple visits for this where he left AMA including earlier this AM from [place]. He is continuing to have anxiety about this, as well as lower abd pain. He attempted to smoke marijuana to allay this feeling, this was unsuccessful. Pt has been able to eat but has not had a bowel movement since. Denies SI/HI at this time. Uncooperative with belongings being taken. HPI Patient is a 32-year-old male with history as documented below presenting to the emergency department for evaluation of foreign body ingestion. Patient ingested a half of a razor blade that was wrapped in a plastic garbage bag 2 days ago to get himself out of retirement. Patient denies any SI or HI. He had multiple visits for this where he did leave AMA including yesterday morning from [place]. Patient states that he had to leave because he had to go home and take care of his kids. He is continuing to have anxiety and is now having pressure and abdominal pain in his upper abdomen. He has been able to eat but does not had a bowel movement. He denies any vomiting or nausea. Denies any other psych complaints or medical complaints at this time. PAST MEDICAL HISTORY Diagnosis Date ADHD (attention deficit hyperactivity disorder) PAST SURGICAL HISTORY Procedure Laterality Date NONE FAMILY HISTORY Problem Relation Age of Onset Cancer Mother Heart Father Social History Tobacco Use Smoking status: Former Packs/day: .5 Types: Cigarettes Smokeless tobacco: Former Vaping Use Vaping Use: Never used Substance and Sexual Activity Alcohol use: Not Currently Comment: occassional Drug use: Not Currently Types: IV Sexual activity: Not on file ALLERGIES No Known Allergies Review of Systems Constitutional: Negative for activity change, chills, fatigue and fever. HENT: Negative for congestion, rhinorrhea and sore throat. Eyes: Negative for pain and visual disturbance. Respiratory: Negative for cough, shortness of breath and wheezing. Cardiovascular: Negative for chest pain, palpitations and leg swelling. Gastrointestinal: Positive for abdominal pain. Negative for nausea and vomiting. Genitourinary: Negative for dysuria and hematuria. Musculoskeletal: Negative for arthralgias and myalgias. Skin: Negative for rash and wound. Neurological: Negative for syncope, weakness, light-headedness, numbness and headaches. Psychiatric/Behavior al: Negative for confusion and sleep disturbance. The patient is nervous/anxious. Physical Exam Vitals [12/09/22 0527] BP Pulse Temp Temp src Resp SpO2 Weight Height 156/90 (!) 120 36.8 ?C (98.2 ?F) -- 23 97 % 77.1 kg (170 lb) 1.803 m (5' 11) Physical Exam Vitals and nursing note reviewed. Constitutional: General: He is not in acute distress. Appearance: Normal appearance. He is not ill-appearing. HENT: Head: Normocephalic and atraumatic. Nose: Nose normal. No congestion or rhinorrhea. Eyes: General: Right eye: No discharge. Left eye: No discharge. Extraocular Movements: Extraocular movements intact. Pupils: Pupils are equal, round, and reactive to light. Cardiovascular: Rate and Rhythm: Regular rhythm. Tachycardia present. Pulses: Normal pulses. Heart sounds: Normal heart sounds. No murmur heard. No gallop. Pulmonary: Effort: Pulmonary effort is normal. No respiratory distress. Breath sounds: No stridor. No wheezing. Abdominal: General: Abdomen is flat. There is no distension. Palpations: Abdomen is soft. Tenderness: There is abdominal tenderness (diffuse tenderness to palpation). Musculoskeletal: General: Normal range of motion. Cervical back: No rigidity or tenderness. Right lower leg: No edema. Left lower leg: No edema. Skin: General: Skin is warm. Coloration: Skin is not jaundiced or pale. Neurological: General: No focal deficit present. Mental Status: He is alert and oriented to person, place, and time. Cranial Nerves: No cranial nerve deficit. Sensory: No sensory deficit. Psychiatric: Mood and Affect: Mood normal. Behavior: Behavior normal. Diagnostic Testing ED Labs Ordered and Reviewed - No data to display Procedures ED Course / Clinical Impression Clinical Impressions as of 12/14/22 1501 Constipation, unspecified constipation type MDM / Disposition / Plan MDM Patient is a 32-year-old male presenting to the emergency department for evaluation of foreign body. Patient was seen multiple times in the past several days for the same complaint. Patient sta (more content not included)... Normal [facility] ED PROV NOTE HNO ID: [id number] Author: Gabbi Pires MD Service: ? Author Type: Physician Type: ED Provider Notes Filed: 12/09/2022 3:40 AM Note Text: ED Provider Note Patient Name: Keke Pemberton : 1990 SERVICE DATE: 12/09/22 History Patient presents with: Ingestion: Pt ingested razor blades in retirement 2 days ago. Pt was seen here yesterday but left AMA as he had an emergency with his kid. Pt reports he is having increased pain tonight. HPI PAST MEDICAL HISTORY Diagnosis Date ADHD (attention deficit hyperactivity disorder) PAST SURGICAL HISTORY Procedure Laterality Date NONE FAMILY HISTORY Problem Relation Age of Onset Cancer Mother Heart Father Social History Tobacco Use Smoking status: Former Packs/day: .5 Types: Cigarettes Smokeless tobacco: Former Vaping Use Vaping Use: Never used Substance and Sexual Activity Alcohol use: Not Currently Comment: occassional Drug use: Not Currently Types: IV Sexual activity: Not on file ALLERGIES No Known Allergies Review of Systems Physical Exam Vitals [12/09/22 0209] BP Pulse Temp Temp src Resp SpO2 Weight Height 134/106 (!) 112 37 ?C (98.6 ?F) Oral 20 98 % 60.3 kg (133 lb) -- Physical Exam Diagnostic Testing ED Labs Ordered and Reviewed - No data to display Procedures ED Course / Clinical Impression MDM / Disposition / Plan At 3:35 AM I walked into the room to evaluate the patient he is not in the room, I checked the hallway around he is not in the hallway, he is not in the bathroom the bathroom near his room is open we checked the waiting room checked outside we do not see him anywhere there was a family member with him no one is around he did not tell us that he is leaving he is absconded from the ER without being seen by myself. SIGNATURE: MD STAN Cabrera, GABBI 12/09/22 0340 Normal [facility] EKGon 12-09-2022 Electrocardiogram Ventricular Rate : 101 BPM Atrial Rate : 101 BPM P-R Interval : 134 ms QRS Duration : 86 ms Q-T Interval : 330 ms QTC Calculation(Bazett) : 427 ms Calculated P [place] : 67 degrees Calculated R [place] : 81 degrees Calculated T [place] : 54 degrees SINUS TACHYCARDIA OTHERWISE NORMAL ECG WHEN COMPARED WITH ECG OF 04-DEC-2022 13:08, VENT. RATE HAS INCREASED BY 33 BPM NONSPECIFIC T WAVE ABNORMALITY NOW EVIDENT IN INFERIOR LEADS NONSPECIFIC T WAVE ABNORMALITY NO LONGER EVIDENT IN LATERAL LEADS Confirmed by LESA MONTALVO ([id number]) on 12/28/2022 6:18:44 AM NAME : KEKE PEMBERTON PID : [id number] : 1990 Gender : Male Race : ORD : Procedure Date : Dec 09 2022 05:31:11 Edit Date : Dec 28 2022 06:18:46 Diagnosis: SINUS TACHYCARDIA OTHERWISE NORMAL ECG WHEN COMPARED WITH ECG OF 04-DEC-2022 13:08, VENT. RATE HAS INCREASED BY 33 BPM NONSPECIFIC T WAVE ABNORMALITY NOW EVIDENT IN INFERIOR LEADS NONSPECIFIC T WAVE ABNORMALITY NO LONGER EVIDENT IN LATERAL LEADS Confirmed by LESA MONTALVO ([id number]) on 12/28/2022 6:18:44 AM Test Reason : Location : 4 : [facility] Overread By : LESA MONTALVO Edited By : LESA MONTALVO Referred By : , Acquired by : BENITO WELLS [facility] Ethanol SerPl-ncon 023 Ethanol [Mass/Vol] mg/dL Normal <11 [facility] Comment on above: Order Comment: Speci men Type: BLOOD SPECIMEN Ordering Facility: [facility] Address: [address] [place] [phone] Performed By: #### 4 024-6, 5643-2, 3298-7 #### [facility] CLIA [id number] [address] [place] [address] [facility] Salicylates SerPl-mCncon Salicylates [Mass/Vol] mg/dL Low 3.0-30.0 [facility] Comment on above: Order Comment: Yeyo velasquez Type: BLOOD SPECIMEN Ordering Facility: [facility] Address: [address] [place] [phone] Result Comment: The therapeutic range varies and has been reported to be 3.0 to 10.0 mg/dL for anti pyretic/analgesic conditions and 15.0 to 30.0 mg/dL for anti inflammatory/rheumatic fever conditions. Ranges published by the instrument traveling phlebotomist. Reference ranges and high/low indicator flags are provided as general guidelines only. The treating physician must determine appropriate target levels/dosing based on the specific clinical situation. Performed By: #### 4 024-6, 5643-2, 3298-7 #### [facility] CLIA [id number] [address] [place] [address] [facility] XR ABDOMEN 1V SUPINEon 12-09 XR ABDOMEN 1V SUPINE * * *Final Report* * * DATE OF EXAM: Dec 09 2022 6:27AM AKX [id number] - XR ABDOMEN 1V SUPINE / PROCEDURE REASON: Nausea/vomiting * * * * Physician Interpretation * * * * EXAMINATION: XR ABDOMEN 1V SUPINE CLINICAL HISTORY: FOREIGN BODY 2 DAYS AGO NAUSEA VOMITING Technique: XR ABDOMEN 1V SUPINE -- NOT APPLICABLE with 1 views on 2 images DATE:12/09/2022 6:30 AM Comparison: 12/05/2022 abdominal radiograph . 12/04/[address] RESULT: The previously seen metallic density is not visualized and presumed passed. Moderate stool burden throughout the colon. No bowel distention to suggest bowel obstruction. No new metallic foreign bodies. No gross organomegaly. IMPRESSION:The previously seen metallic density is not visualized and presumed passed. [employer] Supervisor: PSCB Transcribe Date/Time: Dec 09 2022 6:30A Dictated by : CAROLINA CANCHOLA MD This examination was interpreted and the report reviewed and electronically signed by: CAROLIAN CANCHOLA MD on Dec 09 2022 6:34AM EST [id number] Normal [facility] CBC W Auto Differential pane l (Bld)on 12-07-2022 Basophils (Bld) [#/Vol] 0.06 10*3/uL Normal <0.11 [facility] Comment on above: Order Comment: Speci men Type: BLOOD SPECIMENOrdering Facility: [facility] Address: [address] [place] [address] Performed By: #### 5 7021-8 ####[facility]ORATORYCLIA [id number] [place] [address] [place] Basophils/100 WBC (Bld) 0.6 % Normal [facility] Comment on above: Order Comment: Speci men Type: BLOOD SPECIMENOrdering Facility: [facility] Address: [address] [place] [address] Performed By: #### 5 7021-8 ####[facility]ORATORYCLIA [id number] [place] [address] [place] Differential cell count method Nom (Bld) Auto Normal [facility] Comment on above: Order Comment: Speci men Type: BLOOD SPECIMENOrdering Facility: [facility] Address: [address] [place] [address] Performed By: #### 5 7021-8 ####[facility]ORATORYCLIA [id number] [place] [address] [place] Eosinophils (Bld) [#/Vol] 0.37 10*3/uL Normal <0.46 [facility] Comment on above: Order Comment: Speci men Type: BLOOD SPECIMENOrdering Facility: [facility] Address: [address] [place] [address] Performed By: #### 5 7021-8 ####[facility]ORATORYCLIA [id number] [place] [address] [place] Eosinophils/100 WBC (Bld) 3.9 % Normal [facility] Comment on above: Order Comment: Speci men Type: BLOOD SPECIMENOrdering Facility: [facility] Address: [address] [place] [address] Performed By: #### 5 7021-8 ####[facility]ORATORYCLIA [id number] [address] Erythrocyte distribution width (RBC) [Ratio] 13.1 % Normal 11.5-15.0 [facility] Comment on above: Order Comment: Speci men Type: BLOOD SPECIMENOrdering Facility: [facility] Address: [address] [address] Performed By: #### 5 7021-8 ####[facility]ORATORYCLIA [id number] [place] [address] [place] Hematocrit (Bld) [Volume fraction] 34.3 % Low 39.0-51.0 [facility] Comment on above: Order Comment: Speci men Type: BLOOD SPECIMENOrdering Facility: [facility] Address: [address] [place] [address] Performed By: #### 5 7021-8 ####[facility]ORATORYCLIA [id number] [place] [address] [place] Hemoglobin (Bld) [Mass/Vol] 12.0 g/dL Low 13.0-17.0 [facility] Comment on above: Order Comment: Speci men Type: BLOOD SPECIMENOrdering Facility: [facility] Address: [address] [address] Performed By: #### 5 7021-8 ####[facility]ORATORYCLIA [id number] [address] [place] Immature granulocytes (Bld) [#/Vol] 0.03 10*3/uL Normal <0.10 [facility] Comment on above: Order Comment: Speci men Type: BLOOD SPECIMENOrdering Facility: [facility] Address: [address] [address] Performed By: #### 5 7021-8 ####[facility]ORATORYCLIA [id number] [address] [place] Immature granulocytes/100 WBC (Bld) 0.3 % Normal [facility] Comment on above: Order Comment: Speci men Type: BLOOD SPECIMENOrdering Facility: [facility] Address: [address] [address] Performed By: #### 5 7021-8 ####[facility]ORYCLIA [id number] [address] [place] Lymphocytes (Bld) [#/Vol] 3.45 10*3/uL Normal 1.00-4.00 [facility] Comment on above: Order Comment: Speci men Type: BLOOD SPECIMENOrdering Facility: [facility] Address: [address] [place] [address] Performed By: #### 5 7021-8 ####[facility]ORATORYCLIA [id number] [address] Lymphocytes/100 WBC (Bld) 36.2 % Normal [facility] Comment on above: Order Comment: Speci men Type: BLOOD SPECIMENOrdering Facility: [facility] Address: [address] [place] [address] Performed By: #### 5 7021-8 ####[facility]ORATORYCLIA [id number] [address] [place] [facility] MCH (RBC) [Entitic mass] 31.0 pg Normal 26.0-34.0 [facility] Comment on above: Order Comment: Speci men Type: BLOOD SPECIMENOrdering Facility: [facility] Address: [address] [place] [address] Performed By: #### 5 7021-8 ####[facility] LABORATORYCLIA [id number] [address] MCHC (RBC) [Mass/Vol] 35.0 g/dL Normal 30.5-36.0 [facility] Comment on above: Order Comment: Speci men Type: BLOOD SPECIMENOrdering Facility: [facility] Address: [address] [place] [address] Performed By: #### 5 7021-8 ####[facility] LABORATORYCLIA [id number] [address] MCV (RBC) [Entitic vol] 88.6 fL Normal 80.0-100.0 [facility] Comment on above: Order Comment: Speci men Type: BLOOD SPECIMENOrdering Facility: [facility] Address: [address] [place] [address] Performed By: #### 5 7021-8 ####[facility] LABORATORYCLIA [id number] [address] [place] Monocytes (Bld) [#/Vol] 0.92 10*3/uL High <0.87 [facility] Comment on above: Order Comment: Speci men Type: BLOOD SPECIMENOrdering Facility: [facility] Address: [address] [place] [address] Performed By: #### 5 7021-8 ####[facility]ORATORYCLIA [id number] [address] Monocytes/100 WBC (Bld) 9.7 % Normal [facility] Comment on above: Order Comment: Speci men Type: BLOOD SPECIMENOrdering Facility: [facility] Address: [address] [place] [address] Performed By: #### 5 7021-8 ####[facility] LABORATORYCLIA [id number] [address] [place] Neutrophils (Bld) [#/Vol] 4.69 10*3/uL Normal 1.45-7.50 [facility] Comment on above: Order Comment: Speci men Type: BLOOD SPECIMENOrdering Facility: [facility] Address: [address] [place] [address] Performed By: #### 5 7021-8 ####[facility]ORATORYCLIA [id number] [address] Neutrophils/100 WBC (Bld) 49.3 % Normal [facility] Comment on above: Order Comment: Speci men Type: BLOOD SPECIMENOrdering Facility: [facility] Address: [address] [place] [address] Performed By: #### 5 7021-8 ####[facility] LABORATORYCLIA [id number] [address] [place] Nucleated RBC (Bld) [#/Vol] 10*3/uL Normal <0.01 [facility] Comment on above: Order Comment: Speci men Type: BLOOD SPECIMENOrdering Facility: [facility] Address: [address] [place] [address] Performed By: #### 5 7021-8 ####[facility] LABORATORYCLIA [id number] [place] [address] [place] Nucleated RBC/100 WBC (Bld) [Ratio] 0.0 /100 WBC Normal [facility] Comment on above: Order Comment: Speci men Type: BLOOD SPECIMENOrdering Facility: [facility] Address: [address] [place] [address] Performed By: #### 5 7021-8 ####[facility] LABORATORYCLIA [id number] [place] [address] [place] Platelet mean volume (Bld) [Entitic vol] 9.3 fL Normal 9.0-12.7 [facility] Comment on above: Order Comment: Speci men Type: BLOOD SPECIMENOrdering Facility: [facility] Address: [address] [place] [address] Performed By: #### 5 7021-8 ####[facility] LABORATORYCLIA [id number] [place] [address] [place] Platelets (Bld) [#/Vol] 265 10*3/uL Normal 150-400 [facility] Comment on above: Order Comment: Speci men Type: BLOOD SPECIMENOrdering Facility: [facility] Address: [address] [place] [address] Performed By: #### 5 7021-8 ####[facility] LABORATORYCLIA [id number] [place] [address] [place] RBC (Bld) [#/Vol] 3.87 10*6/uL Low 4.20-6.00 [facility] Comment on above: Order Comment: Speci men Type: BLOOD SPECIMENOrdering Facility: [facility] Address: [address] [place] [address] Performed By: #### 5 7021-8 ####[facility] LABORATORYCLIA [id number] [address] [place] WBC (Bld) [#/Vol] 9.52 10*3/uL Normal 3.70-11.00 [facility] Comment on above: Order Comment: Speci men Type: BLOOD SPECIMENOrdering Facility: [facility] Address: [address] [place] [address] Performed By: #### 5 7021-8 ####[facility] LABORATORYCLIA [id number] [place] [address] [place] Comprehensive metabolic 2000 panelon 12-07-2022 Albumin [Mass/Vol] 3.7 g/dL Low 3.9-4.9 [facility] Comment on above: Order Comment: Speci men Type: BLOOD SPECIMENOrdering Facility: [facility] Address: [address] [place] [address] Performed By: #### 2 4323-8 ####[facility]ORATORYCLIA [id number] [address] ALP [Catalytic activity/Vol] 91 U/L Normal 38-113 [facility] Comment on above: Order Comment: Speci men Type: BLOOD SPECIMENOrdering Facility: [facility] Address: [address] [place] [address] Performed By: #### 2 4323-8 ####[facility]ORATORYCLIA [id number] [address] ALT [Catalytic activity/Vol] 16 U/L Normal 10-54 [facility] Comment on above: Order Comment: Speci men Type: BLOOD SPECIMENOrdering Facility: [facility] Address: [address] [place] [address] Performed By: #### 2 4323-8 ####[facility] LABORATORYCLIA [id number] [place] [address] [place] Anion gap [Moles/Vol] 8 mmol/L Low 9-18 [facility] Comment on above: Order Comment: Speci men Type: BLOOD SPECIMENOrdering Facility: [facility] Address: [address] [place] [address] Performed By: #### 2 4323-8 ####[facility] LABORATORYCLIA [id number] [address] [place] AST [Catalytic activity/Vol] 18 U/L Normal 14-40 [facility] Comment on above: Order Comment: Speci men Type: BLOOD SPECIMENOrdering Facility: [facility] Address: [address] [place] [address] Performed By: #### 2 4323-8 ####[facility] LABORATORYCLIA [id number] [place] [address] [place] Bilirubin [Mass/Vol] 0.2 mg/dL Normal 0.2-1.3 [facility] Comment on above: Order Comment: Speci men Type: BLOOD SPECIMENOrdering Facility: [facility] Address: [address] [address] Performed By: #### 2 4323-8 ####[facility] LABORATORYCLIA [id number] [place] [address] [place] Calcium [Mass/Vol] 8.7 mg/dL Normal 8.5-10.2 [facility] Comment on above: Order Comment: Speci men Type: BLOOD SPECIMENOrdering Facility: [facility] Address: [address] [place] [address] Performed By: #### 2 4323-8 ####[facility] LABORATORYCLIA [id number] [place] [address] [place] Chloride [Moles/Vol] 105 mmol/L Normal 97-105 [facility] Comment on above: Order Comment: Speci men Type: BLOOD SPECIMENOrdering Facility: [facility] Address: [address] [place] [address] Performed By: #### 2 4323-8 ####[facility] LABORATORYCLIA [id number] [place] [address] [place] CO2 [Moles/Vol] 27 mmol/L Normal 22-30 [facility] Comment on above: Order Comment: Speci men Type: BLOOD SPECIMENOrdering Facility: [facility] Address: [address] [place] [address] Performed By: #### 2 4323-8 ####[facility] LABORATORYCLIA [id number] [place] [address] [place] Creatinine [Mass/Vol] 0.76 mg/dL Normal 0.73-1.22 [facility] Comment on above: Order Comment: Yeyo velasquez Type: BLOOD SPECIMENOrdering Facility: [facility] Address: [address] [address] Performed By: #### 2 4323-8 ####[facility]ATORYCL[facility] [id number] [place] [address] [place] ESTIMATED GLOMERULAR FILTRATION RATE 122 mL/min/1.73m??? Normal >=60 [facility] Comment on above: Order Comment: Yeyo velasquez Type: BLOOD SPECIMENOrdering Facility: [facility] Address: [address] [address] Result Comment: Erica mated Glomerular Filtration Rate (eGFR) is calculated using the 2020 CKD-EPI creatinine equation. This equation utilizes serum creatinine, sex, and age as parameters. The creatinine assay has traceable calibration to isotope dilution-mass spectrometry. Refer to KDIGO guidelines for clinical interpretation. In patients with unstable renal function, e.g. those with acute kidney injury, the eGFR may not accurately reflect actual GFR. Performed By: #### 2 4323-8 ####[facility] LABORATORYCLIA [id number] [place] [address] [place] Glucose [Mass/Vol] 130 mg/dL High 74-99 [facility] Comment on above: Order Comment: Yeyo eva Type: BLOOD SPECIMENOrdering Facility: [facility] Address: [address] [place] [address] Result Comment: The [place] Diabetes Association (ADA) provides guidance for cutoff values for fasting glucose and random glucose. The ADA defines fasting as no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 unstable renal function, e.g. those with acute kidney injury, the eGFR may not accurately reflect actual GFR. eGFR- Date Value Ref Range Status 08/22/2021 Greater than 60 Final P.O.C.T. RESULTS: POC done: Yes, See Lab Tab December 04, 2022 TREATMENT: N/A PERIPHERAL IV DATA: Inpatient - refer to LDA documentation RADIOLOGY DEPARTMENT: CT; Exam(s) Completed: Chest Abdomen Pelvis SIGNATURE: SKY Wills PATIENT NAME: Keke Pemberton DATE: December 04, 2022 TIME: 12:47 PM Normal [facility] APAP SerPl-mCncon 12-04-2022 Acetaminophen [Mass/Vol] ug/mL Low 10-30 [facility] Comment on above: Order Comment: Speci men Type: BLOOD SPECIMEN [facility]ing Facility: [facility] Address: [address] [place] [address] Result Comment: Toxi c > 150 ug/mL 4 hours post ingestion The Uday Trent nomogram can be used to estimate the probability of hepatotoxicity via the relationship of plasma acetaminophen concentration to the post ingestion interval. (Lizy. Pediatrics. 1975. 55:871 to 876 and Uday et al. [employer]er Med. 1981. 141:380 to 385). Reference ranges and high/low indicator flags are provided as general guidelines only. The treating physician must determine appropriate target levels/dosing based on the specific clinical situation. Performed By: #### 4 024-6, 5643-2, 3298-7 #### [facility] CLIA [id number] [address] [place] [address] OF [facility] CBC W Auto Differential pane l (Bld)on 12-04-2022 Basophils (Bld) [#/Vol] 0.03 10*3/uL Normal <0.11 [facility] Comment on above: Order Comment: Speci men Type: BLOOD SPECIMEN Ordering Facility: [facility] Address: [address] [address] Performed By: #### 2 4321-2 #### [facility] CLIA [id number] [address] [place] [address] STATES OF [facility] Basophils/100 WBC (Bld) 0.3 % Normal A [facility] Comment on above: Order Comment: Speci men Type: BLOOD SPECIMEN Ordering Facility: [facility] Address: [address] [address] Performed By: #### 2 4321-2 #### [facility] CLIA [id number] [address] [place] [address] Differential cell count method Nom (Bld) Auto Normal [facility] Comment on above: Order Comment: Speci men Type: BLOOD SPECIMEN Ordering Facility: [facility] Address: [address] [address] Performed By: #### 2 4321-2 #### [facility] CLIA [id number] [address] [place] [address] STATES OF [facility] Eosinophils (Bld) [#/Vol] 0.03 10*3/uL Normal <0.46 [facility] Comment on above: Order Comment: Speci men Type: BLOOD SPECIMEN Ordering Facility: [facility] Address: [address] [address] Performed By: #### 2 4321-2 #### [facility] CLIA [id number] [address] Eosinophils/100 WBC (Bld) 0.3 % Normal [facility] Comment on above: Order Comment: Speci men Type: BLOOD SPECIMEN Ordering Facility: [facility] Address: [address] [place] [address] Performed By: #### 2 4321-2 #### [facility] CLIA [id number] [address] Erythrocyte distribution width (RBC) [Ratio] 12.6 % Normal 11.5-15.0 [facility] Comment on above: Order Comment: Speci men Type: BLOOD SPECIMEN Ordering Facility: [facility] Address: [address] [place] [address] Performed By: #### 2 4321-2 #### [facility] CLIA [id number] [address] Hematocrit (Bld) [Volume fraction] 39.8 % Normal 39.0-51.0 [facility] Comment on above: Order Comment: Speci men Type: BLOOD SPECIMEN Ordering Facility: [facility] Address: [address] [place] [address] Performed By: #### 2 4321-2 #### [facility] CLIA [id number] [address] Hemoglobin (Bld) [Mass/Vol] 13.2 g/dL Normal 13.0-17.0 [facility] Comment on above: Order Comment: Speci men Type: BLOOD SPECIMEN Ordering Facility: [facility] Address: [address] [place] [address] Performed By: #### 2 4321-2 #### [facility] CLIA [id number] [address] Immature granulocytes (Bld) [#/Vol] 10*3/uL Normal <0.10 [facility] Comment on above: Order Comment: Speci men Type: BLOOD SPECIMEN Ordering Facility: [facility] Address: [address] [place] [address] Performed By: #### 2 4321-2 #### [facility] CLIA [id number] [address] Immature granulocytes/100 WBC (Bld) 0.2 % Normal [facility] Comment on above: Order Comment: Speci men Type: BLOOD SPECIMEN Ordering Facility: [facility] Address: [address] [place] [address] Performed By: #### 2 4321-2 #### [facility] CLIA [id number] [address] OF [facility] Lymphocytes (Bld) [#/Vol] 1.94 10*3/uL Normal 1.00-4.00 [facility] Comment on above: Order Comment: Speci men Type: BLOOD SPECIMEN Ordering Facility: [facility] Address: [address] [place] [address] Performed By: #### 2 4321-2 #### [facility] CLIA [id number] [address] [place] [address] Lymphocytes/100 WBC (Bld) 21.5 % Normal [facility] Comment on above: Order Comment: Speci men Type: BLOOD SPECIMEN Ordering Facility: [facility] Address: [address] [place] [address] Performed By: #### 2 4321-2 #### [facility] CLIA [id number] [address] MCH (RBC) [Entitic mass] 29.5 pg Normal 26.0-34.0 [facility] Comment on above: Order Comment: Speci men Type: BLOOD SPECIMEN Ordering Facility: [facility] Address: [address] [place] [address] Performed By: #### 2 4321-2 #### [facility] CLIA [id number] [address] OF [facility] MCHC (RBC) [Mass/Vol] 33.2 g/dL Normal 30.5-36.0 [facility] Comment on above: Order Comment: Speci men Type: BLOOD SPECIMEN Ordering Facility: [facility] Address: [address] [place] [address] Performed By: #### 2 4321-2 #### [facility] CLIA [id number] [address] MCV (RBC) [Entitic vol] 89.0 fL Normal 80.0-100.0 [facility] Comment on above: Order Comment: Speci men Type: BLOOD SPECIMEN Ordering Facility: [facility] Address: [address] [place] [address] Performed By: #### 2 4321-2 #### [facility] CLIA [id number] [address] [place] Monocytes (Bld) [#/Vol] 0.72 10*3/uL Normal <0.87 [facility] Comment on above: Order Comment: Speci men Type: BLOOD SPECIMEN Ordering Facility: [facility] Address: [address] [place] [address] Performed By: #### 2 1-2 #### [facility] CLIA [id number] [address] Monocytes/100 WBC (Bld) 8.0 % Normal A [facility] Comment on above: Order Comment: Speci men Type: BLOOD SPECIMEN Ordering Facility: [facility] Address: [address] [place] [address] Performed By: #### 2 1-2 #### [facility] CLIA [id number] [address] [place] Neutrophils (Bld) [#/Vol] 6.28 10*3/uL Normal 1.45-7.50 [facility] Comment on above: Order Comment: Speci men Type: BLOOD SPECIMEN Ordering Facility: [facility] Address: [address] [place] [address] Performed By: #### 2 4321-2 #### [facility] CLIA [id number] [address] [place] Neutrophils/100 WBC (Bld) 69.7 % Normal [facility] Comment on above: Order Comment: Speci men Type: BLOOD SPECIMEN Ordering Facility: [facility] Address: [address] [place] [address] Performed By: #### 2 4321-2 #### [facility] CLIA [id number] [address] [place] Nucleated RBC (Bld) [#/Vol] Normal [facility] Comment on above: Order Comment: Speci men Type: BLOOD SPECIMEN Ordering Facility: [facility] Address: [address] [address] Performed By: #### 2 4321-2 #### [facility] CLIA [id number] [address] Nucleated RBC/100 WBC (Bld) [Ratio] Normal [facility] Comment on above: Order Comment: Speci men Type: BLOOD SPECIMEN Ordering Facility: [facility] Address: [address] [place] [address] Performed By: #### 2 4321-2 #### [facility] CLIA [id number] [address] [place] Platelet mean volume (Bld) [Entitic vol] 9.2 fL Normal 9.0-12.7 [facility] Comment on above: Order Comment: Speci men Type: BLOOD SPECIMEN Ordering Facility: [facility] Address: [address] [address] Performed By: #### 2 4321-2 #### [facility] CLIA [id number] [address] [place] Platelets (Bld) [#/Vol] 258 10*3/uL Normal 150-400 [facility] Comment on above: Order Comment: Speci men Type: BLOOD SPECIMEN Ordering Facility: [facility] Address: [address] [place] [address] Performed By: #### 2 4321-2 #### [facility] CLIA [id number] 1 [place] [address] [place] RBC (Bld) [#/Vol] 4.47 10*6/uL Normal 4.20-6.00 [facility] Comment on above: Order Comment: Speci men Type: BLOOD SPECIMEN Ordering Facility: [facility] Address: [address] [id number] Performed By: #### 2 4321-2 #### [facility] CLIA [id number] [address] [place] WBC (Bld) [#/Vol] 9.02 10*3/uL Normal 3.70-11.00 [facility] Comment on above: Order Comment: Speci men Type: BLOOD SPECIMEN Ordering Facility: [facility] Address: [address] [address] Performed By: #### 2 4321-2 #### [facility] CLIA [id number] [address] ABD/PEL W IVCONon 023 CT ABD/PEL W IVCON * * *Final Report* * * DATE OF EXAM: Dec 04 2022 12:46PM [facility] 0530 - CT ABD/PEL W IVCON / PROCEDURE REASON: Swallowed foreign body (Ped 0-18y) * * * * Physician Interpretation * * * * EXAMINATION: CT CHEST W IVCON, CT ABD/PEL W IVCON CLINICAL HISTORY: Swallowed foreign body (Ped 0-18y) Swallowed razor blade chest pain, abdominal pain. TECHNIQUE: CT of the chest from the thoracic inlet to the upper abdomen was performed following IV contrast. CT of the abdomen and pelvis was performed using standard technique, scanning from just above the dome of the diaphragm to the symphysis pubis. Images were reconstructed into sagittal and coronal planes. Contrast: IV: 150 ml of Omnipaque 300 : ml of CT Radiation dose: Integrated Dose-length product (DLP) for this visit = 187 (accession [id number]), 277 (accession [id number]) mGy*cm. CT Dose Reduction Employed: Iterative recon COMPARISON: Acute abdominal series on 12/04/2022. RESULT: Limitations: None. Chest: Lines, tubes, and devices: None. Lung parenchyma and pleura: No consolidation. No pleural effusion. Central airways are patent. Lymph nodes: No evidence of significant mediastinal, hilar, or axillary lymphadenopathy. Mediastinum: The thoracic aorta is normal in caliber. No pericardial effusion or thickening. No evidence of pneumomediastinum. Bones/Soft Tissues: No significant finding. Abdomen / Pelvis: Liver: No suspicious hepatic mass is identified. Hepatic steatosis. Biliary: No bile duct dilation. Gallbladder is collapsed. Spleen: No mass. No splenomegaly. Pancreas: No mass or duct dilation. Adrenals: No mass. Kidneys: No mass, calculus or hydronephrosis. GI tract: Foreign body within anterior aspect of stomach. Large amount of stool within distal colon. Moderate amount of stool within proximal colon. Portion of colon is not distended, therefore not assessed. No evidence of mechanical bowel obstruction. Appendix is not identified, therefore not evaluated. No secondary CT evidence of acute appendicitis. No evidence of significant intra-abdominal free fluid. No evidence of intra-abdominal free air. No evidence of intra-abdominal abscess. Lymph nodes: No abdominal or pelvic lymphadenopathy. Vasculature: No evidence of abdominal aortic aneurysm. Major abdominal vasculature are patent. Pelvis: No mass, ascites or fluid collection. Bones/Soft Tissues: No evidence of acute osseous abnormality is. IMPRESSION: ABDOMEN/PELVIS: 1. Foreign body within anterior aspect of stomach. No evidence of bowel perforation. No evidence of bowel obstruction. 2. Large amount of stool within distal colon. Moderate amount of stool within proximal colon. Portion of the colon is not distended, therefore not assessed. CHEST: 1. No evidence of acute intrathoracic findings. 2. Specifically, no evidence of pneumomediastinum. [employer] Facilities Supervisor[facility] Transcribe Date/Time: Dec 04 2022 1:16P Dictated by : JOLENE MCGRAW MD This examination was interpreted and the report reviewed and electronically signed by: JOLENE MCGRAW MD on Dec 04 2022 1:38PM EST [id number] CN Normal [facility] CT CHEST W IVCONon 3 CT CHEST W IVCON * * *Final Report* * * DATE OF EXAM: Dec 04 2022 12:46PM [facility] 0539 - CT CHEST W IVCON / PROCEDURE REASON: Swallowed foreign body (Ped 0-18y) * * * * Physician Interpretation * * * * EXAMINATION: CT CHEST W IVCON, CT ABD/PEL W IVCON CLINICAL HISTORY: Swallowed foreign body (Ped 0-18y) Swallowed razor blade chest pain, abdominal pain. TECHNIQUE: CT of the chest from the thoracic inlet to the upper abdomen was performed following IV contrast. CT of the abdomen and pelvis was performed using standard technique, scanning from just above the dome of the diaphragm to the symphysis pubis. Images were reconstructed into sagittal and coronal planes. Contrast: IV: 150 ml of Omnipaque 300 : ml of CT Radiation dose: Integrated Dose-length product (DLP) for this visit = 187 (accession [id number]), 277 (accession [id number]) mGy*cm. CT Dose Reduction Employed: Iterative recon COMPARISON: Acute abdominal series on 12/04/2022. RESULT: Limitations: None. Chest: Lines, tubes, and devices: None. Lung parenchyma and pleura: No consolidation. No pleural effusion. Central airways are patent. Lymph nodes: No evidence of significant mediastinal, hilar, or axillary lymphadenopathy. Mediastinum: The thoracic aorta is normal in caliber. No pericardial effusion or thickening. No evidence of pneumomediastinum. Bones/Soft Tissues: No significant finding. Abdomen / Pelvis: Liver: No suspicious hepatic mass is identified. Hepatic steatosis. Biliary: No bile duct dilation. Gallbladder is collapsed. Spleen: No mass. No splenomegaly. Pancreas: No mass or duct dilation. Adrenals: No mass. Kidneys: No mass, calculus or hydronephrosis. GI tract: Foreign body within anterior aspect of stomach. Large amount of stool within distal colon. Moderate amount of stool within proximal colon. Portion of colon is not distended, therefore not assessed. No evidence of mechanical bowel obstruction. Appendix is not identified, therefore not evaluated. No secondary CT evidence of acute appendicitis. No evidence of significant intra-abdominal free fluid. No evidence of intra-abdominal free air. No evidence of intra-abdominal abscess. Lymph nodes: No abdominal or pelvic lymphadenopathy. Vasculature: No evidence of abdominal aortic aneurysm. Major abdominal vasculature are patent. Pelvis: No mass, ascites or fluid collection. Bones/Soft Tissues: No evidence of acute osseous abnormality is. IMPRESSION: ABDOMEN/PELVIS: 1. Foreign body within anterior aspect of stomach. No evidence of bowel perforation. No evidence of bowel obstruction. 2. Large amount of stool within distal colon. Moderate amount of stool within proximal colon. Portion of the colon is not distended, therefore not assessed. CHEST: 1. No evidence of acute intrathoracic findings. 2. Specifically, no evidence of pneumomediastinum. [employer] Facilities Supervisor: [facility] Transcribe Date/Time: Dec 04 2022 1:16P Dictated by : JOLENE MCGRAW MD This examination was interpreted and the report reviewed and electronically signed by: JOLENE MCGRAW MD on Dec 04 2022 1:38PM EST [id number] CN Normal [facility] Comprehensive metabolic 2000 panelon 12-04-2022 Albumin [Mass/Vol] 4.1 g/dL Normal 3.9-4.9 [facility] Comment on above: Order Comment: Speci men Type: BLOOD SPECIMEN Ordering Facility: [facility] Address: [address] [place] [address] Performed By: #### 2 4321-2 #### [facility] CLIA [id number] [address] STATES OF [facility] ALP [Catalytic activity/Vol] 83 U/L Normal 38-113 [facility] Comment on above: Order Comment: Speci men Type: BLOOD SPECIMEN Ordering Facility: [facility] Address: [address] [place] [address] Performed By: #### 2 4321-2 #### [facility] CLIA [id number] [address] STATES OF [facility] ALT With P-5'-P [Catalytic activity/Vol] 18 U/L Normal 10-54 [facility] Comment on above: Order Comment: Speci men Type: BLOOD SPECIMEN Ordering Facility: [facility] Address: [address] [address] Performed By: #### 2 4321-2 #### [facility] CLIA [id number] [address] Anion gap [Moles/Vol] 9 mmol/L Normal 9-18 [facility] Comment on above: Order Comment: Speci men Type: BLOOD SPECIMEN Ordering Facility: [facility] Address: [address] [address] Performed By: #### 2 4321-2 #### [facility] CLIA [id number] [address] OF [facility] AST With P-5'-P [Catalytic activity/Vol] 17 U/L Normal 14-40 [facility] Comment on above: Order Comment: Speci men Type: BLOOD SPECIMEN Ordering Facility: [facility] Address: [address] [place] [address] Performed By: #### 2 4321-2 #### [facility] CLIA [id number] [address] [place] Bilirubin [Mass/Vol] 0.6 mg/dL Normal 0.2-1.3 [facility] Comment on above: Order Comment: Speci men Type: BLOOD SPECIMEN Ordering Facility: [facility] Address: [address] [place] [address] Performed By: #### 2 4321-2 #### [facility] CLIA [id number] [address] STATES OF [facility] Calcium [Mass/Vol] 9.0 mg/dL Normal 8.5-10.2 [facility] Comment on above: Order Comment: Speci men Type: BLOOD SPECIMEN Ordering Facility: [facility] Address: [address] [place] [address] Performed By: #### 2 4321-2 #### [facility] CLIA [id number] [address] [place] Chloride [Moles/Vol] 101 mmol/L Normal 97-105 [facility] Comment on above: Order Comment: Speci men Type: BLOOD SPECIMEN Ordering Facility: [facility] Address: [address] [place] [address] Performed By: #### 2 4321-2 #### [facility] CLIA [id number] [address] [place] CO2 [Moles/Vol] 26 mmol/L Normal 22-30 [facility] Comment on above: Order Comment: Speci men Type: BLOOD SPECIMEN Ordering Facility: [facility] Address: [address] [address] Performed By: #### 2 4321-2 #### [facility] CLIA [id number] [address] Creatinine [Mass/Vol] 0.75 mg/dL Normal 0.73-1.22 [facility] Comment on above: Order Comment: Yeyo men Type: BLOOD SPECIMEN Ordering Facility: [facility] Address: [address] [address] Performed By: #### 2 4321-2 #### [facility] CLIA [id number] [address] ESTIMATED GLOMERULAR FILTRATION RATE 123 mL/min/1.73m??? Normal >=60 [facility] Comment on above: Order Comment: Yeyo eva Type: BLOOD SPECIMEN Ordering Facility: [facility] Address: [address] [place] [address] Result Comment: Erica mated Glomerular Filtration Rate (eGFR) is calculated using the 2020 CKD-EPI creatinine equation. This equation utilizes serum creatinine, sex, and age as parameters. The creatinine assay has traceable calibration to isotope dilution-mass spectrometry. Refer to KDIGO guidelines for clinical interpretation. In patients with unstable renal function, e.g. those with acute kidney injury, the eGFR may not accurately reflect actual GFR. Performed By: #### 2 4321-2 #### [facility] CLIA [id number] [address] [place] [address] Glucose [Mass/Vol] 109 mg/dL High 74-99 [facility] Comment on above: Order Comment: Speceli velasquez Type: BLOOD SPECIMEN Ordering Facility: [facility] Address: [address] [place] [address] Result Comment: The [place] Diabetes Association (ADA) provides guidance for cutoff values for fasting glucose and random glucose. The ADA defines fasting as no caloric intake for at least 8 hours. Fasting plasma glucose results between 100 to 125 mg/dL indicate increased risk for diabetes (prediabetes). Fasting plasma glucose results greater than or equal to 126 mg/dL meet the criteria for diagnosis of diabetes. In the absence of unequivocal hyperglycemia, results should be confirmed by repeat testing. In a patient with classic symptoms of hyperglycemia or hyperglycemic crisis, random plasma glucose results greater than or equal to 200 mg/dL meet the criteria for diagnosis of diabetes. Reference: Standards of Medical Care in Diabetes 2016, [place] Diabetes Association. Diabetes Care. 2016.39(Suppl 1). Performed By: #### 2 4321-2 #### [facility] CLIA [id number] [address] [place] Potassium [Moles/Vol] 4.1 mmol/L Normal 3.7-5.1 [facility] Comment on above: Order Comment: Yeyo velasquez Type: BLOOD SPECIMEN Ordering Facility: [facility] Address: [address] [place] [address] Performed By: #### 2 4321-2 #### [facility] CLIA [id number] [address] [place] Protein [Mass/Vol] 6.7 g/dL Normal 6.3-8.0 [facility] Comment on above: Order Comment: Yeyo velasquez Type: BLOOD SPECIMEN Ordering Facility: [facility] Address: [address] [place] [address] Performed By: #### 2 4321-2 #### [facility] CLIA [id number] [address] [place] Sodium [Moles/Vol] 136 mmol/L Normal 136-144 [facility] Comment on above: Order Comment: Arianei men Type: BLOOD SPECIMEN Ordering Facility: [facility] Address: [address] [address] Performed By: #### 2 4321-2 #### [facility] CLIA [id number] [address] [place] Urea nitrogen [Mass/Vol] 11 mg/dL Normal 9-24 [facility] Comment on above: Order Comment: Arianei men Type: BLOOD SPECIMEN Ordering Facility: [facility] Address: [address] [address] Performed By: #### 2 4321-2 #### [facility] [place] [id number] [address] OF [facility] ECG COMPLETEon 12-04-2022 ECG COMPLETE Ventricular Rate : 68 BPM Atrial Rate : 68 BPM P-R Interval : 146 ms QRS Duration : 90 ms Q-T Interval : 420 ms QTC Calculation(Bazett) : 446 ms Calculated P [place] : 85 degrees Calculated R [place] : 91 degrees Calculated T [place] : 88 degrees NORMAL SINUS RHYTHM RIGHTWARD AXIS BORDERLINE ECG NO PREVIOUS ECGS AVAILABLE Confirmed by MD VIDAL VINAYAK ([id number]) on 12/08/2022 8:02:09 PM NAME : KEKE PEMBERTON PID : [id number] : 1990 Gender : Male Race : ORD : [id number] Procedure Date : Dec 04 2022 13:08:39 Edit Date : Dec 08 2022 20:02:10 Diagnosis: NORMAL SINUS RHYTHM RIGHTWARD AXIS BORDERLINE ECG NO PREVIOUS ECGS AVAILABLE Confirmed by MD VIDAL VINAYAK ([id number]) on 12/08/2022 8:02:09 PM Test Reason : Other - Specify Location : 150 : [facility] Overread By : MD VIDAL VINAYAK Edited By : MD VIDAL VINAYAK Referred By : , Acquired by : SAMI HYLTON [facility] ED NOTEon 12-04-2022 ED NOTE HNO ID: [id number] Author: Ayde Butcher RN Service: ? Author Type: Registered Nurse Type: ED Notes Filed: 12/04/2022 6:28 PM Note Text: This RN gave hand off report to EMS who will be assuming care of pt. Pt's vss and left ED via EMS and in stable condition. [facility] ED NOTE HNO ID: [id number] Author: Darwin Smith RN Service: Emergency Medicine Author Type: Registered Nurse Type: ED Notes Filed: 12/04/2022 4:55 PM Note Text: [facility] 2115 Report [id number] [facility] ETA 1830 [facility] ED NOTE HNO ID: [id number] Author: Ayde Butcher RN Service: ? Author Type: Registered Nurse Type: ED Notes Filed: 12/04/2022 4:12 PM Note Text: Pt got up out of bed and stated I'm leaving. When pt got up and walked IV was hooked up to IV pump and got ripped out of pt's arm. Bleeding under control. Pt requesting ativan. Dr. Robledo notified. [facility] ED NOTE HNO ID: [id number] Author: Ayde Butcher RN Service: ? Author Type: Registered Nurse Type: ED Notes Filed: 12/04/2022 2:15 PM Note Text: [employer] brought in pt's belongings. Belongings wanded by security and secured outside of pt's room in drawer at nursing desk. [facility] ED NOTE HNO ID: [id number] Author: Ayde Butcher RN Service: ? Author Type: Registered Nurse Type: ED Notes Filed: 12/04/2022 1:46 PM Note Text: Uncle came in as visitor. Uncle wanded by security. Precautions maintained. [facility] ED NOTE HNO ID: [id number] Author: Ayde Butcher RN Service: ? Author Type: Registered Nurse Type: ED Notes Filed: 12/04/2022 1:17 PM Note Text: Pt pink slipped by Dr. Robledo. Security notified and wanded pt, pt placed in purple gown, pt does not have belongings at this time. 1:1 precautions initiated per hospital protocol for self harm pink slipped pt. Behavioral assessment complete. Room checks complete with Darwin Smith RN. [facility] ED NOTE HNO ID: [id number] Author: Ayde Butcher, DEMARCO Service: ? Author Type: Registered Nurse Type: ED Notes Filed: 12/04/2022 11:39 AM Note Text: This RN spoke with Dr. Robledo regarding pt in 1:[address] Robledo does not deem pt suicidal at this time therefor 1:1 suicide precautions are not indicated at this time. Verbal order received to d/c 1:1. Pt in constant observation by Barbra Haney at this time. [facility] ED NOTE HNO ID: [id number] Author: Ayde Butcher RN Service: ? Author Type: Registered Nurse Type: ED Notes Filed: 12/04/2022 10:48 AM Note Text: Pt comes to ED via [facility] after swallowing 2 razor blades. Pt has abdominal cramping/tenderness and anxiety Pt denies having BM. Pt denies being suicidal or homicidal. Pt states I don't know why I did it, I'm crazy. I'm supposed to get out today at 2pm Pt is AANDOx3, vss and we will continue to monitor. Normal [facility] ED PROV NOTEon 12-04-2022 ED PROV NOTE HNO ID: [id number] Author: Rubia Platt DO Service: Emergency Medicine Author Type: Physician Type: ED Provider Notes Filed: 12/04/2022 11:39 PM Note Text: ED Provider Note Patient Name: Keke Pemberton : 1990 SERVICE DATE: 12/04/22 History Patient presents with: Foreign Body Ingestion: Razor blade Keke Pemberton is a 32 year old male who presents with Foreign Body Ingestion (Razor blade). - Symptoms began about 45 minutes prior to arrival. - Severity: moderate - Timing: constant - Quality: cramping - Symptoms are associated with abdominal cramping and feeling anxious. - Symptoms are not associated with chest pain, fever, shortness of breath, URI symptoms, vomiting, back pain, suicidal ideation, homicidal ideation. Patient presents stating that he swallowed 2 razor blades at the [facility] prior to arrival. He is currently here with who noted it occurred about 45 minutes ago. Patient states he is not sure why he swallowed the razor blades. He states he is not suicidal. He denies any homicidal ideation. He states he does feel anxious. He states that he did not vomit after swallowing razor blades. He denies any trouble swallowing. No chest pain or shortness of breath or back pain. He states he does have cramping throughout his lower abdomen. He has not had a bowel movement since swallowing the razor blades. He states he has not done this before. PAST MEDICAL HISTORY Diagnosis Date ADHD (attention deficit hyperactivity disorder) PAST SURGICAL HISTORY Procedure Laterality Date NONE FAMILY HISTORY Problem Relation Age of Onset Cancer Mother Heart Father Social History Tobacco Use Smoking status: Former Packs/day: 1.00 Types: Cigarettes Smokeless tobacco: Former Vaping Use Vaping Use: Never used Substance and Sexual Activity Alcohol use: Yes Comment: occassional Drug use: Not Currently Types: IV Sexual activity: Not on file ALLERGIES No Known Allergies Review of Systems Constitutional: Negative for chills and fever. HENT: Negative for sore throat and trouble swallowing. Eyes: Negative for redness. Respiratory: Negative for shortness of breath. Cardiovascular: Negative for chest pain. Gastrointestinal: Positive for abdominal pain. Negative for nausea and vomiting. Genitourinary: Negative for flank pain. Musculoskeletal: Negative for back pain. Skin: Negative for rash. Neurological: Negative for weakness, numbness and headaches. Psychiatric/Behavior al: Negative for agitation, confusion and suicidal ideas. The patient is nervous/anxious. Physical Exam Vitals [12/04/22 1041] BP Pulse Temp Temp src Resp SpO2 Weight Height 112/69 73 36.9 ?C (98.4 ?F) Temporal 18 99 % 55.2 kg (121 lb 11.2 oz) 1.803 m (5' 11) Physical Exam Vitals and nursing note reviewed. Constitutional: General: He is not in acute distress. Appearance: He is not ill-appearing, toxic-appearing or diaphoretic. HENT: Head: Normocephalic and atraumatic. Mouth/Throat: Mouth: Mucous membranes are moist. Pharynx: Oropharynx is clear. Uvula midline. No pharyngeal swelling, oropharyngeal exudate, posterior oropharyngeal erythema or uvula swelling. Comments: Small abrasion to superior aspect of tongue. No gaping wound. No active bleeding. Eyes: Conjunctiva/sclera: Conjunctivae normal. Neck: Trachea: Trachea and phonation normal. Cardiovascular: Rate and Rhythm: Normal rate and regular rhythm. Pulses: Normal pulses. Pulmonary: Effort: Pulmonary effort is normal. Breath sounds: Normal breath sounds. Abdominal: General: Abdomen is flat. Bowel sounds are normal. There is no distension. Palpations: Abdomen is soft. Tenderness: There is abdominal tenderness. There is no right CVA tenderness, left CVA tenderness, guarding or rebound. Musculoskeletal: Cervical back: Normal range of motion and neck supple. Skin: General: Skin is warm and dry. Capillary Refill: Capillary refill takes less than 2 seconds. Neurological: General: No focal deficit present. Mental Status: He is alert and oriented to person, place, and time. Psychiatric: Mood and Affect: Mood is anxious. Behavior: Behavior normal. Diagnostic Testing ED Labs Ordered and Reviewed COMP METABOLIC PANEL - Abnormal; Notable for the following components: Result Value Ref Range Glucose 109 (*) 74 - 99 mg/dL All other components within normal limits URINALYSIS WITH MICROSCOPIC, REFLEX CULTURE - Abnormal; Notable for the following components: Clarity Slightly Cloudy (*) Clear pH, Urine >=9.0 (*) 5.0 - 8.0 Protein, Urine Trace (*) Negative Bacteria Few (*) None Seen /HPF All other components within normal limits ACETAMINOPHEN/TYLENO - Abnormal; Notable for the following components: Acetaminophen <5 (*) 10 - 30 ug/mL All other components within normal limits SALICYLATE BLD - Abnormal; Notable for the followin (more content not included)... Normal [facility] Ethanol SerPl-mCncon 023 Ethanol [Mass/Vol] mg/dL Normal <11 [facility] Comment on above: Order Comment: Yeyo velasquez Type: BLOOD SPECIMEN Ordering Facility: [facility] Address: [address] [place] [address] Performed By: #### 4 024-6, 5643-2, 32987 #### [facility] CLIA [id number] [address] [place] [address] OF [facility] FENTANYL SCREEN, QUALITATIVE , URINEon 12-04-2022 fentaNYL Screen Ql (U) Positive Abnormal Negative [facility] Comment on above: Order Comment: Speceli velasquez Type: BLOOD SPECIMEN Ordering Facility: [facility] Address: [address] [place] [address] Result Comment: Cuto ff threshold at 5 ng/mL. Performed By: #### 4 024-6, 5643-2, 3298-7 #### [facility] CLIA [id number] [address] [place] [address] [place] HISTORY PHYSICALon 3 HISTORY PHYSICAL HNO ID: [id number] Author: Stone, Amy J, DO Service: Hospital Medicine Author Type: Physician Type: HANDP Filed: 12/04/2022 8:37 PM Note Text: DEPARTMENT OF HOSPITAL MEDICINE HISTORY AND PHYSICAL EXAM SERVICE DATE: 12/04/2022 SERVICE TIME: 8:28 PM Primary Care Physician: No primary care provider on file. NIGHT AND WEEKEND COVERAGE: From 7am - 7pm, please call [facility] After 7pm, please call cross cover pager #[phone] Subjective CHIEF COMPLAINT: Swallowed foreign body HPI: This is a 32 year old male who presents with a swallowed partial razor blade. Apparently he was being held by the police and at some point today swallowed a razor blade. He tells me it was a quarter of a razor blade which he wrapped in tissue and then wrapped in a piece of a garbage bag twice. GI was consulted from the [place] emergency room and recommended transfer to [facility]. [facility] to [facility]. Per conversation with ops center coagulant dipper it appears that plans for EGD in the OR tomorrow morning. Patient cannot tell me why he swallowed a partial razor blade he stated that he just did Currently he is resting in bed comfortably. He is bargaining with me to have something to eat. I did explain to him multiple times that he cannot have a Sprite or any food. He relates that he has a little bit of abdominal discomfort and it has migrated slightly. No chest pain or shortness of breath PAST MEDICAL HISTORY Diagnosis Date ADHD (attention deficit hyperactivity disorder) PAST SURGICAL HISTORY Procedure Laterality Date NONE FAMILY HISTORY Problem Relation Age of Onset Cancer Mother Heart Father Social History Tobacco Use Smoking status: Former Packs/day: 1.00 Types: Cigarettes Smokeless tobacco: Former Vaping Use Vaping Use: Never used Substance Use Topics Alcohol use: Yes Comment: occassional Drug use: Not Currently Types: IV HOME MEDICATIONS: Prior to Admission Medications Prescriptions Last Dose Informant Patient Reported? Taking? Ibuprofen 200 mg cap Not Taking Yes No Sig: Take by mouth. Patient not taking: Reported on 12/04/2022 acetaminophen (TYLENOL) 325 mg tablet Not Taking Yes No Sig: Take 2 tablets by mouth every 4 hours as needed. FOR PAIN. Patient not taking: Reported on 12/04/2022 meloxicam (MOBIC) 15 mg tablet Not Taking No No Sig: Take 1 tablet by mouth once daily. Patient not taking: Reported on 12/04/2022 Facility-Administere d Medications: None ALLERGIES No Known Allergies REVIEW OF SYSTEM: All ROS are negative except those noted in HPI Objective PHYSICAL EXAM: BP 130/78 Pulse 72 Temp (Src) 99 (Oral) Resp 18 Ht 5' 11 (1.80m) Wt 133 lb 9.6 oz (60.6kg) SpO2 100% BMI 18.64 kg/(m2). GENERAL: Alert, no distress, cooperative, NAD SKIN: Warm, dry intact, no open lesions, no rashes HEAD/SINUSES: Normocephalic, atraumatic, oral mucosa moist EYES: PERRLA, EOMI NECK: No jugulovenous distention, Supple, no adenopathy LUNGS: Lungs clear to auscultation, no wheezes, ronchi, or rales CARDIAC: RRR, Normal S1 and S2; no rubs, murmurs, or gallops ABDOMEN: Soft mild generalized tenderness palpation no rebound or guarding positive bowel sounds EXTREMITIES: Extremities normal, no deformities, edema, clubbing or skin discoloration. NEURO: Speech is clear moves all 4 extremities - no chronic drew DATA: Diagnostic tests reviewed for today's visit: Most recent labs and imaging results. CBC: Recent Labs 12/04/22 1103 WBC 9.02 RBC 4.47 HB 13.2 HCT 39.8 PLT 258 MCV 89.0 MCH 29.5 MPV 9.2 Coags: No results for input(s): PT, INR, APTT in the last 24 hours. BMP: Recent Labs 12/04/22 1103 NA 136 K 4.1 CHLOR 101 CO2 26 BUN 11 CREAT 0.75 GLUC 109* CMP: Recent Labs 12/04/22 1103 NA 136 K 4.1 CHLOR 101 CO2 26 BUN 11 CREAT 0.75 GLUC 109* TPROT 6.7 CA 9.0 TBILI 0.6 ALKPHOS 83 ALT 18 AST 17 ANION 9 Cardiac Enzymes: No results for input(s): CK, MB, CKMB, TROPT in the last 24 hours. Liver Function, Amylase, Lipase: Recent Labs 12/04/22 1103 TPROT 6.7 ALB 4.1 ALT 18 AST 17 ALKPHOS 83 TBILI 0.6 LIPASE 44 MG/PHOS: No results for input(s): MG, P in the last 24 hours. Renal Panel: Recent Labs 12/04/22 1103 CREAT 0.75 BUN 11 GLUC 109* CA 9.0 CHLOR 101 K 4.1 CO2 26 NA 136 Heme: No results for input(s): RETICP, ABSRETIC, LD, CLAUDIA, FE, TIBC, TRANSFERSAT in the last 24 hours. Estimated Creatinine Clearance: 121.2 mL/min (based on SCr of 0.75 mg/dL). Problem List Swallowed foreign body (POA: Yes) Based on medical conditions, review of data, and discussion with emergency room, [facility] will admit patient to the hospital. Assessment/Plan Swallowed foreign body-IV fluids. N.p.o. for EGD in AM. If any clinical changes tonight will speak with GI an (more content not included)... Normal [facility] Lipase SerPl-cCncon 12-05-19 23 Lipase [Catalytic activity/Vol] 44 U/L Normal 16-61 [facility] Comment on above: Order Comment: Yeyo velasquez Type: BLOOD SPECIMENOrdering Facility: [facility] Address: [address] [place], [place] [id number] Performed By: #### 2 4323-8, 3040-3 ####[facility] [id number] [place] [address] [facility] [place] Salicylates SerPl-mCncon Salicylates [Mass/Vol] mg/dL Low 3.0-30.0 [facility] Comment on above: Order Comment: Yeyo velasquez Type: BLOOD SPECIMEN Ordering Facility: [facility] Address: [address] [place] [address] Result Comment: The therapeutic range varies and has been reported to be 3.0 to 10.0 mg/dL for anti pyretic/analgesic conditions and 15.0 to 30.0 mg/dL for anti inflammatory/rheumatic fever conditions. Ranges published by the instrument traveling phlebotomist. Reference ranges and high/low indicator flags are provided as general guidelines only. The treating physician must determine appropriate target levels/dosing based on the specific clinical situation. Performed By: #### 4 024-6, 5643-2, 3298-7 #### [facility] CLIA [id number] [address] [place] [address] [facility] [place] TOX SCREEN ROUT URon 023 Amphetamines Confirm (U) [Mass/Vol] Unable to assay. See note in comment. Abnormal Negative [facility] Comment on above: Order Comment: Speci men Type: BLOOD SPECIMEN Ordering Facility: [facility] Address: [address] [place] [address] Result Comment: Cuto ff threshold at 1000 ng/mL. Performed By: #### 4 024-6, 5643-2, 3298-7 #### [facility] CLIA [id number] [address] [place] [address] [place] BARBITURATES, URINE Unable to assay. See note in comment. Abnormal Negative [facility] Comment on above: Order Comment: Speci men Type: BLOOD SPECIMEN Ordering Facility: [facility] Address: [address] [place] [address] Result Comment: Cuto ff threshold at 200 ng/mL. Performed By: #### 4 024-6, 5643-2, 3298-7 #### [facility] CLIA [id number] [address] [place] [address] [place] BENZODIAZEPINES, UR Unable to assay. See note in comment. Abnormal Negative [facility] Comment on above: Order Comment: Speci men Type: BLOOD SPECIMEN Ordering Facility: [facility] Address: [address] [place] [address] Result Comment: Cuto ff threshold at 200 ng/mL. Performed By: #### 4 024-6, 5643-2, 3298-7 #### [facility] CLIA [id number] [address] [place] [address] [place] CANNABINOIDS,URINE Unable to assay. See note in comment. Abnormal Negative [facility] Comment on above: Order Comment: Speci men Type: BLOOD SPECIMEN Ordering Facility: [facility] Address: [address] [place] [address] Result Comment: Cuto ff threshold at 50 ng/mL. Performed By: #### 4 024-6, 5643-2, 3297 #### [facility] CLIA [id number] [address] [place] [address] [place] Cocaine Ql (U) Unable to assay. See note in comment. Abnormal Negative [facility] Comment on above: Order Comment: Speci men Type: BLOOD SPECIMEN Ordering Facility: [facility] Address: [address] [place] [address] Result Comment: Cuto ff threshold at 300 ng/mL. Performed By: #### 4 024-6, 5643-2, 3297 #### [facility] CLIA [id number] [address] [place] [address] [place] Ethanol (U) [Mass/Vol] Normal [facility] Comment on above: Order Comment: Speci men Type: BLOOD SPECIMEN Ordering Facility: [facility] Address: [address] [place] [address] Performed By: #### 4 024-6, 5643-2, 3297 #### [facility] CLIA [id number] [address] [place] [address] [facility] [place] Opiates Screen Ql (U) Unable to assay. S ee note in comment. Abnormal Negative [facility] Comment on above: Order Comment: Speci men Type: BLOOD SPECIMEN Ordering Facility: [facility] Address: [address] [place] [address] Result Comment: Cuto ff threshold at 300 ng/mL. Performed By: #### 4 024-6, 5643-2, 3297 #### [facility] CLIA [id number] [address] [place] [address] [place] oxyCODONE cutoff Screen (U) [Mass/Vol] Negative Normal Negative [facility] Comment on above: Order Comment: Speci men Type: BLOOD SPECIMEN Ordering Facility: [facility] Address: [address] [place] [address] Result Comment: Cuto ff threshold at 100 ng/mL. Performed By: #### 4 024-6, 5643-2, 32987 #### [facility] CLIA [id number] [address] Phencyclidine Ql (U) Unable to assay. Se e note in comment. Abnormal Negative [facility] Comment on above: Order Comment: Speci men Type: BLOOD SPECIMEN Ordering Facility: [facility] Address: [address] [place] [address] Result Comment: Cuto ff threshold at 25 ng/mL. Performed By: #### 4 024-6, 5643-2, 3298-7 #### [facility] CLIA [id number] [address] [place] Urinalysis complete panel (U )on 12-04-2022 Bacteria LM.HPF (Urine sed) [#/Area] Few Abnormal None Seen [facility] Comment on above: Order Comment: Speci men Type: URINE SPECIMEN Ordering Facility: [facility] Address: [address] [place] [address] Performed By: #### 2 4356-8 #### [facility] CLIA [id number] [address] [place] Bilirubin Ql (U) Negative Normal Negative [facility] Comment on above: Order Comment: Speci men Type: URINE SPECIMEN Ordering Facility: [facility] Address: [address] [place] [address] Performed By: #### 2 4356-8 #### [facility] CLIA [id number] [address] [place] Clarity (Unsp spec) Slightly Cloudy Abnormal Clear [facility] Comment on above: Order Comment: Speci men Type: URINE SPECIMEN Ordering Facility: [facility] Address: [address] [place] [address] Performed By: #### 2 4356-8 #### [facility] CLIA [id number] [address] [place] Color (U) Yellow Normal Yellow [facility] Comment on above: Order Comment: Speci men Type: URINE SPECIMEN Ordering Facility: [facility] Address: [address] [place] [address] Performed By: #### 2 4356-8 #### [facility] CLIA [id number] [address] [place] [address] [facility] Epithelial cells LM.HPF (Urine sed) [#/Area] Few Normal [facility] Comment on above: Order Comment: Speci men Type: URINE SPECIMEN Ordering Facility: [facility] Address: [address] [place] [address] Performed By: #### 2 4356-8 #### [facility] CLIA [id number] [address] [place] [address] [facility] Glucose Test strip (U) [Mass/Vol] Negative Normal Negative [facility] Comment on above: Order Comment: Speci men Type: URINE SPECIMEN Ordering Facility: [facility] Address: [address] [place] [address] Performed By: #### 2 4356-8 #### [facility] CLIA [id number] [address] [place], [place] [address] [place] [address] [place] Hemoglobin Ql (U) Negative Normal Negative [facility] Comment on above: Order Comment: Speci men Type: URINE SPECIMEN Ordering Facility: [facility] Address: [address] [place] [address] Performed By: #### 2 4356-8 #### [facility] CLIA [id number] [address] [place] [address] [place] Ketones Ql (U) Negative Normal Negative [facility] Comment on above: Order Comment: Speci men Type: URINE SPECIMEN Ordering Facility: [facility] Address: [address] [place] [address] Performed By: #### 2 4356-8 #### [facility] CLIA [id number] [address] [place] [address] [place] Leukocyte esterase Test strip Ql (U) Negative Normal Negative [facility] Comment on above: Order Comment: Speci men Type: URINE SPECIMEN Ordering Facility: [facility] Address: [address] [place] [address] Performed By: #### 2 4356-8 #### [facility] CLIA [id number] [address] [place] [id number] [place] Nitrite Ql (U) Negative Normal Negative [facility] Comment on above: Order Comment: Speci men Type: URINE SPECIMEN Ordering Facility: [facility] Address: [address] [place] [address] Performed By: #### 2 4356-8 #### [facility] CLIA [id number] [address] [place] [id number] [place] pH (U) [pH] High 5.0-8.0 [facility] Comment on above: Order Comment: Speci men Type: URINE SPECIMEN Ordering Facility: [facility] Address: [address] [place] [address] Performed By: #### 2 4356-8 #### [facility] CLIA [id number] [address] [place] [address] [place] Protein (U) [Mass/Vol] Trace Abnormal Negative [facility] Comment on above: Order Comment: Speci men Type: URINE SPECIMEN Ordering Facility: [facility] Address: [address] [place] [address] Performed By: #### 2 4356-8 #### [facility] CLIA [id number] [address] [place] [place] [id number] [place] RBC LM.HPF (Urine sed) [#/Area] 0-3 /HPF Normal 0-3 /HPF [facility] Comment on above: Order Comment: Speci men Type: URINE SPECIMEN Ordering Facility: [facility] Address: [address] [place] [address] Performed By: #### 2 4356-8 #### [facility] CLIA [id number] [address] [place] [address] [place] Specific gravity (U) [Rel density] 1.015 Normal 1.005-1.030 [facility] Comment on above: Order Comment: Speci men Type: URINE SPECIMEN Ordering Facility: [facility] Address: [address] [place] [address] Performed By: #### 2 4356-8 #### [facility] CLIA [id number] [address] [place] [address] Urobilinogen Ql (U) 1.0 EU/dL Normal 0.2-1.0 EU/dL [facility] Comment on above: Order Comment: Speci men Type: URINE SPECIMEN Ordering Facility: [facility] Address: [address] [place] [address] Performed By: #### 2 4356-8 #### [facility] CLIA [id number] [address] [place] [address] WBC LM.HPF (Urine sed) [#/Area] 0-5 /HPF Normal 0-5 /HPF [facility] Comment on above: Order Comment: Speci men Type: URINE SPECIMEN Ordering Facility: [facility] Address: [address] [place] [address] Performed By: #### 2 4356-8 #### [facility] CLIA [id number] [address] [place] [address] OF [facility] XR ACUTE ABD SERIES 2V ABD+C XRon 12-04-2022 XR ACUTE ABD SERIES 2V ABD+CXR * * *Final Report* * * DATE OF EXAM: Dec 04 2022 11:11AM LDX 5359 - XR ACUTE ABD SERIES 2V ABD+CXR / PROCEDURE REASON: Foreign body in alimentary tract * * * * Physician Interpretation * * * * EXAMINATION: XR ACUTE ABD SERIES 2V ABD+CXR Clinical History: Foreign body in alimentary tract Comparison: None RESULT: Radiopaque foreign body within left upper quadrant, which may be within stomach. No radiographic evidence of intra-abdominal free air. No evidence of mechanical bowel obstruction. Moderate colonic stool burden. Cardiac and mediastinal contours are within normal limits. No evidence of focal consolidation, significant pleural effusion, or pneumothorax. No radiographic evidence of acute osseous abnormality is. IMPRESSION: Radiopaque foreign body within left upper quadrant, which may be within stomach. This may represent razor blade, as reported in the history. No radiographic evidence of intra-abdominal free air. No evidence of mechanical bowel obstruction. Moderate colonic stool burden. No radiographic evidence of acute cardiopulmonary process. [employer] Facilities Supervisor: HEAVENLY Transcribe Date/Time: Dec 04 2022 11:14A Dictated by : JOLENE MCGRAW MD This examination was interpreted and the report reviewed and electronically signed by: JOLENE MCGRAW MD on Dec 04 2022 11:19AM EST [id number] CN Normal [facility] ALLIED HEALTHon 10-08-2022 ALLIED HEALTH HNO ID: [id number] Author: RT Ren(R) Service: Radiology Author Type: Technologist Type: Allied Health Filed: 10/08/2022 6:20 PM Note Text: Radiology Service Progress Note PATIENT NAME: Keke Pemberton DATE OF SERVICE: October 08, 2022 TIME: 6:19 PM PATIENT IDENTITY VERIFICATION COMPLETED USING TWO (2) IDENTIFIERS: Name and Date of confirmed by patient verbally and Name and Date of confirmed by identification band. FALL SCREENING: Has the patient had 2 falls in the last year or 1 fall with injury or currently using an Ambulatory Assistive Device (Walker, Cane, Wheelchair, Crutches, etc.)? Emergency Room Patient: Screened in ED PATIENT GENDER DATA: Male PATIENT RELEVANT IMPLANT DATA REVIEWED: Not Applicable RADIOLOGY DEPARTMENT: CT; Exam(s) Completed: Spine PERIPHERAL IV DATA: Not applicable SIGNED BY: RT Ren(R) October 08, 2022 6:[address] [facility] [address] LUMBAR SPINE WO IVCONon 0 10-08-2022 CT LUMBAR SPINE WO IVCON * * *Final Report* * * DATE OF EXAM: Oct 08 2022 6:31PM [facility] [place] [place] LUMBAR SPINE WO IVCON / PROCEDURE REASON: Spine fracture, lumbar, traumatic * * * * Physician Interpretation * * * * EXAMINATION: CT LUMBAR SPINE WO IVCON, 10/08/2022 CLINICAL HISTORY: Injury from a fall. Lower back pain. Spine fracture, lumbar, traumatic TECHNIQUE: Spiral, high resolution axial unenhanced images were obtained from the thoracolumbar junction to the sacrum with sagittal and coronal planar reconstructions. MQ: [id number] CT Radiation dose: Integrated Dose-Length Product (DLP) for this visit = 487 mGy*cm. CT Dose Reduction Employed: Automated exposure control(AEC) and iterative recon COMPARISON: None. RESULT: Counting reference: Lumbosacral junction. For the purposes of this report, mid body of L4 is considered the level of the iliac crest and there are 5 lumbar-type vertebrae. Anatomic variant: 6 nonrib-bearing vertebra, first considered a thoracic vertebra. Transitional L5 vertebral body, partially sacralized on the left.. Tufting Machine Operator (topogram) images: Unremarkable. Alignment: Alignment is anatomic. Bone marrow /fracture: No evidence of a lytic or blastic process in the visualized spine. No evidence of acute or chronic fracture. Paraspinal soft tissues: The paraspinal soft tissues planes are maintained. Degenerative changes: No disc space narrowing or other appreciable degenerative changes. Lower thoracic spine: The visualized lower thoracic bony canal and foramina are patent. L1-L2: Canal and foramina are patent. L2-L3: Canal and foramina are patent L3-L4: Canal and foramina are patent L4-L5: Mild annular disc bulging. Canal and foramina are patent L5-S1: Canal and foramina are patent Sacrum and iliac wings: The visualized sacrum and iliac wings are within normal limits. IMPRESSION: Within normal limits. No fracture or other acute changes seen in the lumbar spine. Anatomic Lumbar Variant: 6 nonrib-bearing vertebra. Mid body of L4 is considered the level of the iliac crest. Transitional L5 vertebral body, partially sacralized on the left.. Re[employer] Facilities Supervisor: PSCB Transcribe Date/Time: Oct 08 2022 6:47P Dictated by : NINA WESTON MD This examination was interpreted and the report reviewed and electronically signed by: NINA WESTON MD on Oct 08 2022 6:55PM EST [id number] [facility] ED NOTEon 10-08-2022 ED NOTE HNO ID: [id number] Author: Dewayne Coley RN Service: ? Author Type: Registered Nurse Type: ED Notes Filed: 10/08/2022 8:00 PM Note Text: The patient verbalizes understanding of discharge instructions. No additional questions or concerns at this time. Patient Vital signs stable, no acute distress noted. Patient ambulatory out of ED. Prescription(S) x 0 given. [facility] ED NOTE HNO ID: [id number] Author: Dewayne Coley RN Service: ? 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 He reports slipping on the pavement surface and reports landing directly on his buttocks. He denies any other symptoms. [facility] ED NOTE HNO ID: [id number] Author: Francisco Javier Alexis RN Service: ? Author Type: Registered Nurse Type: ED Notes Filed: 10/08/2022 6:12 PM Note Text: Bed: ED-18 Expected date: 10/08/22 Expected time: Means of arrival: Comments: LST 4 - Fall [facility] ED PROV NOTEon 10-08-2022 ED PROV NOTE HNO ID: [id number] Author: Sunshine Duncan MD Service: Emergency Medicine Author Type: Physician Type: ED Provider Notes Filed: 10/08/2022 7:56 PM Note Text: ED Provider Note Patient Name: Keke Pemberton : 1990 SERVICE DATE: 10/08/22 History Patient presents with: Fall: Mechanical fall, buttocks pain 32-year-old male. Coming in today for lower back pain. Reports that he was at a local car dealership. Was getting out of the car and slipped and fell to the ground landing on his buttocks. Has pain in his buttocks. No previous injury to the same. Brought in via EMS. Denies pain anywhere else. PAST MEDICAL HISTORY Diagnosis Date ADHD (attention deficit hyperactivity disorder) PAST SURGICAL HISTORY Procedure Laterality Date NONE FAMILY HISTORY Problem Relation Age of Onset Cancer Mother Heart Father Social History Tobacco Use Smoking status: Former Packs/day: 1.00 Types: Cigarettes Smokeless tobacco: Former Vaping Use Vaping Use: Never used Substance and Sexual Activity Alcohol use: Yes Comment: occassional Drug use: No Sexual activity: Not on file ALLERGIES No Known Allergies Review of Systems Constitutional: Negative for activity change, chills, diaphoresis and fever. HENT: Negative for congestion, sinus pain and sore throat. Eyes: Negative for photophobia, pain and visual disturbance. Respiratory: Negative for cough, chest tightness and shortness of breath. Cardiovascular: Negative for chest pain, palpitations and leg swelling. Gastrointestinal: Negative for abdominal pain, constipation, diarrhea, nausea and vomiting. Genitourinary: Negative for dysuria, frequency and urgency. Musculoskeletal: Positive for back pain. Negative for gait problem and neck pain. Skin: Negative for color change, rash and wound. Neurological: Negative for syncope, light-headedness and headaches. Psychiatric/Behavior al: Negative for agitation, behavioral problems and confusion. Physical Exam Vitals BP Pulse Temp Temp src Resp SpO2 Weight Height -- -- -- -- -- -- -- -- Physical Exam Vitals and nursing note reviewed. Constitutional: General: He is not in acute distress. Appearance: He is well-developed. He is not diaphoretic. HENT: Head: Normocephalic and atraumatic. Right Ear: External ear normal. Left Ear: External ear normal. Nose: Nose normal. Eyes: General: No scleral icterus. Right eye: No discharge. Left eye: No discharge. Conjunctiva/sclera: Conjunctivae normal. Pupils: Pupils are equal, round, and reactive to light. Neck: Vascular: No JVD. Trachea: No tracheal deviation. Cardiovascular: Rate and Rhythm: Normal rate and regular rhythm. Heart sounds: Normal heart sounds. No murmur heard. No friction rub. No gallop. Pulmonary: Effort: Pulmonary effort is normal. No respiratory distress. Breath sounds: Normal breath sounds. No stridor. No wheezing or rales. Abdominal: General: Bowel sounds are normal. There is no distension. Palpations: Abdomen is soft. Tenderness: There is no abdominal tenderness. There is no guarding or rebound. Hernia: No hernia is present. Musculoskeletal: General: No deformity. Normal range of motion. Cervical back: Normal range of motion and neck supple. Comments: Pain to palpation in the lower lumbar spine. No outward signs of trauma. Good strength in the bilateral lower extremities. Skin: General: Skin is dry. Capillary Refill: Capillary refill takes less than 2 seconds. Coloration: Skin is not pale. Findings: No erythema or rash. Neurological: Mental Status: He is alert and oriented to person, place, and time. Sensory: No sensory deficit. Motor: No abnormal muscle tone. Psychiatric: Mood and Affect: Mood normal. Behavior: Behavior normal. Thought Content: Thought content normal. Judgment: Judgment normal. Diagnostic Testing ED Labs Ordered and Reviewed - No data to display Procedures ED Course / Clinical Impression Clinical Impressions as of 10/08/221952 Fall, initial encounter Acute midline low back pain without sciatica MDM / Disposition / Plan Patient presents for the aforementioned. Had a fall out of a vehicle onto the ground landing on his buttocks. Had acute back pain. Given Toradol with near complete resolution of his symptoms. CT scan of the lumbar spine is negative. Patient reevaluated and is feeling much better. I did discuss supportive care measures with the patient and his father at bedside. Advised to return for any new or worsening symptoms. Otherwise to follow-up as an outpatient. Amenable to plan as discussed. Discharged in good condition. Patient discharged from the Emergency Department. I do not feel that the patient's evaluation reveals any acute reason for admission at this time. I instructed them to either follow up with their primary care physician or promptly return to the Emergency Department for (more content not included)... Normal [facility] .Auto Diffon 08-28-2021 Basophil, Absolute 0.10 10 3/mcL Normal 0.00-0.27 [facility] ([place]) Comment on above: Performed By: #### E RDS, GFR, CBC, CK, ANEU, TROPHS, ADIFF, CMP #### [address] [address] Basophils/100 WBC (Bld) 0.6 % Normal 0.0-2.5 [facility] ([place]) Comment on above: Performed By: #### E RDS, GFR, CBC, CK, ANEU, TROPHS, ADIFF, CMP #### [address] [address] Eosinophil, Absolute 0.60 10 3/mcL Normal 0.00-0.65 [facility] ([place] Comment on above: Performed By: #### E RDS, GFR, CBC, CK, ANEU, TROPHS, ADIFF, CMP #### [address] [address] Eosinophils/100 WBC (Bld) 6.1 % High 0.0-6.0 [facility] ([place] Comment on above: Performed By: #### E RDS, GFR, CBC, CK, ANEU, TROPHS, ADIFF, CMP #### [address] [address] Lymphocyte, Absolute 2.50 10 3/mcL Normal 0.90-4.32 [facility] ([place] Comment on above: Performed By: #### E RDS, GFR, CBC, CK, ANEU, TROPHS, ADIFF, CMP #### [address] [address] Lymphocytes/100 WBC (Bld) 23.8 % Normal 20.0-40.0 [facility] ([place] Comment on above: Performed By: #### E RDS, GFR, CBC, CK, ANEU, TROPHS, ADIFF, CMP #### [address] [address] Monocyte, Absolute 1.00 10 3/mcL Normal 0.09-1.40 [facility] ([place] Comment on above: Performed By: #### E RDS, GFR, CBC, CK, ANEU, TROPHS, ADIFF, CMP #### [address] [address] Monocytes/100 WBC (Bld) 9.6 % Normal 2.0-13.0 [facility] ([place] Comment on above: Performed By: #### E RDS, GFR, CBC, CK, ANEU, TROPHS, ADIFF, CMP #### [address] [address] Neutrophils/100 WBC (Bld) 59.9 % Normal 50.0-75.0 [facility] ([place] Comment on above: Performed By: #### E RDS, GFR, CBC, CK, ANEU, TROPHS, ADIFF, CMP #### [address] [address] .GFRon 08-28-2021 GFR >60 Normal [facility] ([place] Comment on above: Result Comment: GFR Population mean for , Non- Americans Ages 20-29 = 116 mL/min/1.73 sq.m. Ages 30-39 = 107 mL/min/1.73 sq.m. Ages 40-49 = 99 mL/min/1.73 sq.m. Ages 50-59 = 93 mL/min/1.73 sq.m. Ages 60-69 = 85 mL/min/1.73 sq.m. Ages 70+ = 75 mL/min/1.73 sq.m. Chronic Kidney Disease: Less than 60 mL/min/1.73 square meters End Stage Renal Disease: Less than 15 mL/min/1.73 square meters Performed By: #### E RDS, GFR, CBC, CK, ANEU, TROPHS, ADIFF, CMP #### [address] [address] GFR Non- >60 Normal [facility] ([place] Comment on above: Result Comment: GFR Population mean for , Non- Americans Ages 20-29 = 116 mL/min/1.73 sq.m. Ages 30-39 = 107 mL/min/1.73 sq.m. Ages 40-49 = 99 mL/min/1.73 sq.m. Ages 50-59 = 93 mL/min/1.73 sq.m. Ages 60-69 = 85 mL/min/1.73 sq.m. Ages 70+ = 75 mL/min/1.73 sq.m. Chronic Kidney Disease: Less than 60 mL/min/1.73 square meters End Stage Renal Disease: Less than 15 mL/min/1.73 square meters Performed By: #### E RDS, GFR, CBC, CK, ANEU, TROPHS, ADIFF, CMP #### [address] [address] .NEUABSon 08-28-2021 Neutrophil, Absolute 6.20 10 3/mcL Normal 2.25-8.10 [facility] ([place] Comment on above: Performed By: #### E RDS, GFR, CBC, CK, ANEU, TROPHS, ADIFF, CMP #### [address] [address] CBCon 08-28-2021 Erythrocyte distribution width (RBC) [Ratio] 12.9 % Normal 11.5-15.5 [facility] ([place] Comment on above: Performed By: #### E RDS, GFR, CBC, CK, ANEU, TROPHS, ADIFF, CMP #### [place] [address] Hematocrit (Bld) [Volume fraction] 45.3 % Normal 40.0-52.0 [facility] ([place] Comment on above: Performed By: #### E RDS, GFR, CBC, CK, ANEU, TROPHS, ADIFF, CMP #### [place] [address] Hgb 15.4 G/dL Normal 13.0-17.5 [facility] ([place] Comment on above: Performed By: #### E RDS, GFR, CBC, CK, ANEU, TROPHS, ADIFF, CMP #### [place] [address] MCH (RBC) [Entitic mass] 30.8 pg Normal 27.0-33.0 [facility] ([place] Comment on above: Performed By: #### E RDS, GFR, CBC, CK, ANEU, TROPHS, ADIFF, CMP #### [place] [address] MCHC 34.0 G/dL Normal 32.0-36.0 [facility] ([place] Comment on above: Performed By: #### E RDS, GFR, CBC, CK, ANEU, TROPHS, ADIFF, CMP #### [place] [address] MCV (RBC) [Entitic vol] 90.6 fL Normal 81.0-100.0 [facility] ([place] Comment on above: Performed By: #### E RDS, GFR, CBC, CK, ANEU, TROPHS, ADIFF, CMP #### [place] [address] Platelet 225 10 3/mcL Normal 150-450 [facility] ([place] Comment on above: Performed By: #### E RDS, GFR, CBC, CK, ANEU, TROPHS, ADIFF, CMP #### [place] [address] Platelet mean volume (Bld) [Entitic vol] 8.1 fL Normal 6.4-10.5 [facility] ([place] Comment on above: Performed By: #### E RDS, GFR, CBC, CK, ANEU, TROPHS, ADIFF, CMP #### [address] [address] RBC 5.00 10 6/mcL Normal 4.50-6.00 [facility] ([place] Comment on above: Performed By: #### E RDS, GFR, CBC, CK, ANEU, TROPHS, ADIFF, CMP #### [place] [address] WBC 10.40 10 3/mcL Normal 4.50-10.80 [facility] ([place] Comment on above: Performed By: #### E RDS, GFR, CBC, CK, ANEU, TROPHS, ADIFF, CMP #### [place] [address] CKon 08-28-2021 CK [Catalytic activity/Vol] 91 U/L Normal 7-185 [facility] ([place] Comment on above: Performed By: #### E RDS, GFR, CBC, CK, ANEU, TROPHS, ADIFF, CMP #### [place] [address] CMPon 08-28-2021 Albumin Level 4.2 G/dL Normal 3.2-4.8 [facility] [place] Comment on above: Performed By: #### E RDS, GFR, CBC, CK, ANEU, TROPHS, ADIFF, CMP #### [place] [address] Albumin/Globulin [Mass ratio] 1.5 {ratio} Normal 0.9-1.6 [facility] ([place] Comment on above: Performed By: #### E RDS, GFR, CBC, CK, ANEU, TROPHS, ADIFF, CMP #### [place] [address] ALP [Catalytic activity/Vol] 110 U/L Normal 38-126 [facility] ([place] Comment on above: Performed By: #### E RDS, GFR, CBC, CK, ANEU, TROPHS, ADIFF, CMP #### [address] [address] ALT [Catalytic activity/Vol] 57 U/L High 12-55 [facility] ([place] Comment on above: Performed By: #### E RDS, GFR, CBC, CK, ANEU, TROPHS, ADIFF, CMP #### [address] [address] AST [Catalytic activity/Vol] 27 U/L Normal 8-34 [facility] ([place] Comment on above: Performed By: #### E RDS, GFR, CBC, CK, ANEU, TROPHS, ADIFF, CMP #### [address] [address] Bili Total 0.80 mg/dL Normal 0.20-1.20 [facility] ([place] Comment on above: Result Comment: Use of this assay is not recommended for patients undergoing treatment with eltrombopag due to the potential for falsely elevated results. Performed By: #### E RDS, GFR, CBC, CK, ANEU, TROPHS, ADIFF, CMP #### [place] [id number] BUN/Creatinine Ratio 11.0 ratio Normal 10.0-22.0 [facility] ([place] Comment on above: Performed By: #### E RDS, GFR, CBC, CK, ANEU, TROPHS, ADIFF, CMP #### [address] [address] Calcium [Mass/Vol] 9.4 mg/dL Normal 8.7-10.4 [facility] ([place] Comment on above: Result Comment: No te - New Reference Range in effect 19 Performed By: #### E RDS, GFR, CBC, CK, ANEU, TROPHS, ADIFF, CMP #### [address] [address] Chloride [Moles/Vol] 106 mmol/L Normal 98-110 [facility] ([place] Comment on above: Performed By: #### E RDS, GFR, CBC, CK, ANEU, TROPHS, ADIFF, CMP #### [address] [address] CO2 [Moles/Vol] 26 mmol/L Normal 22-32 [facility] ([place] Comment on above: Performed By: #### E RDS, GFR, CBC, CK, ANEU, TROPHS, ADIFF, CMP #### [address] [address] Creatinine [Mass/Vol] 0.73 mg/dL Normal 0.60-1.40 [facility] ([place] Comment on above: Performed By: #### E RDS, GFR, CBC, CK, ANEU, TROPHS, ADIFF, CMP #### [address] [address] Electrolyte Balance 6.0 mEq/L Normal 4.0-15.0 [facility] ([place] Comment on above: Performed By: #### E RDS, GFR, CBC, CK, ANEU, TROPHS, ADIFF, CMP #### [place] [id number] Globulin 2.8 G/dL Normal 1.5-3.8 [facility] ([place] Comment on above: Performed By: #### E RDS, GFR, CBC, CK, ANEU, TROPHS, ADIFF, CMP #### [address] [address] Glucose [Mass/Vol] 99 mg/dL Normal 70-110 [facility] [place] Comment on above: Performed By: #### E RDS, GFR, CBC, CK, ANEU, TROPHS, ADIFF, CMP #### [place] [id number] Potassium [Moles/Vol] 3.8 mmol/L Normal 3.5-5.0 [facility] ([place] Comment on above: Performed By: #### E RDS, GFR, CBC, CK, ANEU, TROPHS, ADIFF, CMP #### [place] [id number] Sodium [Moles/Vol] 138 mmol/L Normal 136-145 [facility] [place] Comment on above: Performed By: #### E RDS, GFR, CBC, CK, ANEU, TROPHS, ADIFF, CMP #### [place] [address] Total Protein 7.0 G/dL Normal 5.7-8.2 [facility] ([place] Comment on above: Result Comment: No te - New Reference Range in effect 19 Performed By: #### E RDS, GFR, CBC, CK, ANEU, TROPHS, ADIFF, CMP #### [place] [address] Urea nitrogen [Mass/Vol] 8.0 mg/dL Normal 8.0-22.0 [facility] ([place] Comment on above: Performed By: #### E RDS, GFR, CBC, CK, ANEU, TROPHS, ADIFF, CMP #### [place] [address] CVFLURVon 08-28-2021 Date of Onset [id number] Invalid Interpretation Code [facility] ([place] Comment on above: Performed By: #### C VFLURV #### [place] [address] Employed in Healthcare [facility] ([place] Comment on above: Performed By: #### C VFLURV #### [place] [address] First Test Unknown [facility] ([place] Comment on above: Performed By: #### C VFLURV #### [place] [address] FLU A PCR Negative Normal Negative [facility] ([place] Comment on above: Result Comment: Note s [id number] Performed By: #### C VFLURV #### [place] [address] FLU B PCR Negative Normal Negative [facility] ([place] Comment on above: Result Comment: Note s [id number] Performed By: #### C VFLURV #### [place] [address] Hospitalized No [facility] ([place] Comment on above: Performed By: #### C VFLURV #### [place] [address] ICU No [facility] ([place] Comment on above: Performed By: #### C VFLURV #### [facility] [address] [place] [address] Not Normal [facility] ([place] Comment on above: Performed By: #### C VFLURV #### [facility] [address] [place] [address] Resides in Congregate Care Setting No Normal [facility] ([place] Comment on above: Performed By: #### C VFLURV #### [facility] [address] [place], [place] [id number] RSV PCR Negative Normal Negative [facility] ([place] Comment on above: Result Comment: Note s [id number] Performed By: #### C VFLURV #### [place] [address] SARS-CoV-2 (COVID-19) RNA JEWEL+probe Ql (Unsp spec) Negative Normal Negative [facility] ([place] Comment on above: Result Comment: Note s [id number] This test has been authorized by FDA under an EUA for use by authorized laboratories and has not been FDA cleared or approved. Results from the Xpert Xpress SARS-CoV-2/Flu/RSV or Xpert Xpress SARS-CoV-2 only test should be correlated with the clinical history, epidemiological data, and other data available to the clinician evaluating the patient. Performance of the Xpert Xpress SARS-CoV-2/Flu/RSV or Xpert Xpress SARS-CoV-2 only test has only been established in nasopharyngeal swab specimens. Erroneous test results might occur from improper specimen collection; failure to follow the recommended sample collection, handling, and storage procedures; technical error; or sample mix-up. False negative results may occur if virus is present at levels below the analytical limit of detection. Viral nucleic acid may persist in vivo, independent of virus viability. Detection of analyte target(s) does not imply that the corresponding virus(es) are infectious or are the causative agents for clinical symptoms. Recent patient exposure to FluMist or other live attenuated influenza vaccines may cause inaccurate positive results. Performed By: #### C VFLURV #### [address] [address] Symptomatic as Defined by CDC No Normal [facility] ([place] Comment on above: Performed By: #### C VFLURV #### [place] [address] ERDSon 08-28-2021 Acetaminophen [Mass/Vol] 4.7 ug/mL Low 10.0-20.0 [facility] ([place] Comment on above: Performed By: #### E RDS, GFR, CBC, CK, ANEU, TROPHS, ADIFF, CMP ####[place] [address] ER Drug Screen (s) Positive Abnormal [facility] ([place] Comment on above: Performed By: #### E RDS, GFR, CBC, CK, ANEU, TROPHS, ADIFF, CMP ####[place] [address] ER Drug Screen Interp The serum shows evidence of: _ Invalid Interpretation Code [facility] ([place] Comment on above: Performed By: #### E RDS, GFR, CBC, CK, ANEU, TROPHS, ADIFF, CMP ####[place] [address] ER Serum Drugs Screened: See Below Normal [facility] ([place] Comment on above: Result Comment: This drug screen is a presumptive screening only. No confirmation will be performed unless requested. Drugs included in the ER serum drug screen are: Threshold Ethanol 10.0 mg/dL Salicylate 2.0 mg/dL Acetaminophen 2.0 mcg/mL Tricyclic Antidepressants 300 ng/mL Testing has been performed FOR MEDICAL PURPOSES ONLY. Performed By: #### E RDS, GFR, CBC, CK, ANEU, TROPHS, ADIFF, CMP ####[place] [address] Ethanol Level <10.0 Normal [facility] ([place] Comment on above: Performed By: #### E RDS, GFR, CBC, CK, ANEU, TROPHS, ADIFF, CMP ####[place] [address] Salicylate Lvl (ds) <3.0 Low 10.0-25.0 [facility] ([place] Comment on above: Performed By: #### E RDS, GFR, CBC, CK, ANEU, TROPHS, ADIFF, CMP ####[facility] [place] [address] TCA (s) Negative Normal [facility] ([place] Comment on above: Performed By: #### E RDS, GFR, CBC, CK, ANEU, TROPHS, ADIFF, CMP ####[facility] [place] [address] LABORATORYOrdered By: Ela Malloy on 08-28-2021 Date of Onset [id number] Invalid Interpretation Code AH [employer]Sero SS Employed in Healthcare No (08/28/21 8:34 PM) Invalid Interpretation Code AH Auto Viro/Sero SS First Test Unknown (08/28/21 8:34 PM) Invalid Interpretation Code AH Auto Viro/Sero SS FLU A PCR Negative 2 (08/28/21 8:34 PM) Invalid Interpretation Code Negative AH Auto Viro/Sero SS Comment on above: Result Comment: Note s [id number] FLU B PCR Negative 3 (08/28/21 8:34 PM) Invalid Interpretation Code Negative AH Auto Viro/Sero SS Comment on above: Result Comment: Note s [id number] Hospitalized No (08/28/21 8:34 PM) Invalid Interpretation Code AH Auto Viro/Sero SS ICU No (08/28/21 8:34 PM) Invalid Interpretation Code AH Auto Viro/Sero SS Not (08/28/21 8:34 PM) Invalid Interpretation Code AH Auto Viro/Sero SS Resides in Congregate Care Setting No (08/28/21 8:34 PM) Invalid Interpretation Code AH Auto Viro/Sero SS RSV PCR Negative 4 (08/28/21 8:34 PM) Invalid Interpretation Code Negative AH Auto Viro/Sero SS Comment on above: Result Comment: Note s [id number] SARS-CoV-2 (COVID-19) RNA JEWEL+probe Ql (Unsp spec) Negative 1 (08/28/21 8:34 PM) Invalid Interpretation Code Negative AH Auto Viro/Sero SS Comment on above: Result Comment: Note s [id number] Symptomatic as Defined by CDC No (08/28/21 8:34 PM) Invalid Interpretation Code AH Auto Viro/Sero SS LABORATORYOrdered By: Pierce calle on 08-28-2021 ER U Drug Screen Negative (08/28/21 8:34 PM) Invalid Interpretation Code AH Chemistry S ER U Drug Screen Interp Urine shows no evidence of drugs routinely screened. Invalid Interpretation Code AH Chemistry S U ER Drugs Screened: See Below (08/28/21 8:34 PM) Invalid Interpretation Code AH Chemistry S LABORATORYOrdered By: Aranza Hill on 08-28-2021 Acetaminophen [Mass/Vol] 4.7 ug/mL Invalid Interpretation Code 10.0 - 20.0 mcg/mL AH ADM SS ER Drug Screen (s) Positive *ABN* (08/28/21 8:27 PM) Invalid Interpretation Code AH Chemistry S ER Drug Screen Interp The serum shows evidence of: _1. acetaminophen. Invalid Interpretation Code AH Chemistry S ER Serum Drugs Screened: See Below (08/28/21 8:27 PM) Invalid Interpretation Code Chemistry S Ethanol [Mass/Vol] mg/dL Invalid Interpretation Code ADM SS Salicylates [Mass/Vol] mg/dL Invalid Interpretation Code 10.0 - 25.0 mg/dL ADM SS Tricyclic antidepressants Screen Ql Negative Invalid Interpretation Code AH ADM SS LABORATORYOrdered By: Identify on 08-28-2021 Albumin BCP dye [Mass/Vol] 4.2 G/dL Invalid Interpretation Code 3.2 - 4.8 G/dL ADM SS Albumin/Globulin [Mass ratio] 1.5 {ratio} Invalid Interpretation Code 0.9 - 1.6 ratio ADM SS ALP [Catalytic activity/Vol] 110 U/L Invalid Interpretation Code 38 - 126 U/L ADM SS ALT No additional P-5'-P [Catalytic activity/Vol] 57 U/L Invalid Interpretation Code 12 - 55 U/L ADM SS AST [Catalytic activity/Vol] 27 U/L Invalid Interpretation Code 8 - 34 U/L ADM SS Basophils (Bld) [#/Vol] 0.10 103/mcL Invalid Interpretation Code 0.00 - 0.27 10^3/mcL AH Remisol SS Basophils/100 WBC (Bld) 0.6 % Invalid Interpretation Code 0.0 - 2.5 % Remisol SS Bilirubin [Mass/Vol] 0.80 mg/dL Invalid Interpretation Code 0.20 - 1.20 mg/dL AH ADM SS Calcium [Mass/Vol] 9.4 mg/dL Invalid Interpretation Code 8.7 - 10.4 mg/dL AH ADM SS Chloride [Moles/Vol] 106 mmol/L Invalid Interpretation Code 98 - 110 mEq/L ADM SS CK [Catalytic activity/Vol] 91 U/L Invalid Interpretation Code 7 - 185 U/L AH ADM SS CO2 [Moles/Vol] 26 mmol/L Invalid Interpretation Code 22 - 32 mEq/L AH ADM SS Creatinine [Mass/Vol] 0.73 mg/dL Invalid Interpretation Code 0.60 - 1.40 mg/dL AH ADM SS Electrolyte Balance 6.0 mEq/L Invalid Interpretation Code 4.0 - 15.0 mEq/L AH ADM SS Eosinophils (Bld) [#/Vol] 0.60 103/mcL Invalid Interpretation Code 0.00 - 0.65 10^3/mcL AH Remisol SS Eosinophils/100 WBC (Bld) 6.1 % Invalid Interpretation Code 0.0 - 6.0 % AH Remisol SS Erythrocyte distribution width (RBC) [Ratio] 12.9 % Invalid Interpretation Code 11.5 - 15.5 % AH Remisol SS GFR/1.73 sq M.predicted among blacks MDRD (S/P/Bld) [Vol rate/Area] ml/min/1.73sqm Invalid Interpretation Code AH ADM SS GFR/1.73 sq M.predicted among non-blacks MDRD (S/P/Bld) [Vol rate/Area] ml/min/1.73sqm Invalid Interpretation Code ADM SS Globulin 2.8 G/dL Invalid Interpretation Code 1.5 - 3.8 G/dL ADM SS Glucose [Mass/Vol] 99 mg/dL Invalid Interpretation Code 70 - 110 mg/dL AH ADM SS Hematocrit (Bld) [Volume fraction] 45.3 % Invalid Interpretation Code 40.0 - 52.0 % AH Remisol SS Hemoglobin (Bld) [Mass/Vol] 15.4 G/dL Invalid Interpretation Code 13.0 - 17.5 G/dL AH Remisol SS Lymphocytes (Bld) [#/Vol] 2.50 103/mcL Invalid Interpretation Code 0.90 - 4.32 10^3/mcL AH Remisol SS Lymphocytes/100 WBC (Bld) 23.8 % Invalid Interpretation Code 20.0 - 40.0 % AH Remisol SS MCH (RBC) [Entitic mass] 30.8 pg Invalid Interpretation Code 27.0 - 33.0 pg AH Remisol SS MCHC (RBC) [Mass/Vol] 34.0 G/dL Invalid Interpretation Code 32.0 - 36.0 G/dL AH Remisol SS MCV (RBC) [Entitic vol] 90.6 fL Invalid Interpretation Code 81.0 - 100.0 fL AH Remisol SS Monocytes (Bld) [#/Vol] 1.00 103/mcL Invalid Interpretation Code 0.09 - 1.40 10^3/mcL AH Remisol SS Monocytes/100 WBC (Bld) 9.6 % Invalid Interpretation Code 2.0 - 13.0 % AH Remisol SS Neutrophils (Bld) [#/Vol] 6.20 103/mcL Invalid Interpretation Code 2.25 - 8.10 10^3/mcL AH Remisol SS Neutrophils/100 WBC (Bld) 59.9 % Invalid Interpretation Code 50.0 - 75.0 % AH Remisol SS Platelet mean volume (Bld) [Entitic vol] 8.1 fL Invalid Interpretation Code 6.4 - 10.5 fL AH Remisol SS Platelets (Bld) [#/Vol] 225 103/mcL Invalid Interpretation Code 150 - 450 10^3/mcL AH Remisol SS Potassium [Moles/Vol] 3.8 mmol/L Invalid Interpretation Code 3.5 - 5.0 mEq/L AH ADM SS Protein [Mass/Vol] 7.0 G/dL Invalid Interpretation Code 5.7 - 8.2 G/dL AH ADM SS RBC (Bld) [#/Vol] 5.00 106/mcL Invalid Interpretation Code 4.50 - 6.00 10^6/mcL AH Remisol SS Sodium [Moles/Vol] 138 mmol/L Invalid Interpretation Code 136 - 145 mEq/L AH ADM SS Troponin I.cardiac DL <= 0.01 ng/mL [Mass/Vol] ng/L Invalid Interpretation Code 0.00 - 54.00 ng/L AH ADM SS Urea nitrogen [Mass/Vol] 8.0 mg/dL Invalid Interpretation Code 8.0 - 22.0 mg/dL AH ADM SS Urea nitrogen/Creatinine [Mass ratio] 11.0 ratio Invalid Interpretation Code 10.0 - 22.0 ratio AH ADM SS WBC (Bld) [#/Vol] 10.40 103/mcL Invalid Interpretation Code 4.50 - 10.80 10^3/mcL AH Remisol SS TROPHSon 08-28-2021 Troponin I High Sensitivity <2.50 Normal 0.00-54.00 [facility] ([place]) Comment on above: Performed By: #### E RDS, GFR, CBC, CK, ANEU, TROPHS, ADIFF, CMP #### [address] [address] U ERDSon 08-28-2021 ER U Drug Screen Negative Normal [facility] ([place]) Comment on above: Performed By: #### U ERDS #### [place] [address] ER U Drug Screen Interp Urine shows no evidence of drugs routinely screened. Invalid Interpretation Code [facility] ([place]) Comment on above: Performed By: #### U ERDS #### [place] [address] U ER Drugs Screened: See Below Normal [facility] ([place]) Comment on above: Result Comment: This drug screen is a presumptive screening only. No confirmation will be performed unless requested. Drugs included in the ER urine drug screen are: Threshold Amphetamine/Methamphetamine 1000 ng/mL Barbiturates 200 ng/mL Benzodiazepine metabolites 200 ng/mL Cannabinoids (THC metabolites) 50 ng/mL Benzoylecognine (cocaine met) 300 ng/mL Opiates 300 ng/mL Phencyclidine (PCP) 25 ng/mL Testing has been performed FOR MEDICAL PURPOSES ONLY. Performed By: #### U ERDS #### [place] [address] XR ABDOMEN APon 08-28-2021 XR ABDOMEN AP ORIGINAL EXAMINATION: ONE SUPINE XRAY VIEW(S) OF THE ABDOMEN08/28/2021 9:02 pm COMPARISON: None HISTORY: ORDERING SYSTEM PROVIDED HISTORY: Reason for Exam: Reportedly swallowed a razor blade FINDINGS: No radiopaque foreign body. IMPRESSION: No radiopaque foreign body. I have reviewed this report and agree with the resident findings and interpretation. Interpreted by: Rancho Coleman MD Preliminary Report By: Manas Lundy Electronically signed By Rancho Coleman MD Dictated Date: 08/28/2021 9:11:57 PM Prelim Date: 08/28/2021 9:13:39 PM Sign Date: 08/28/2021 9:21:10 PM Ordering Provider: GILBERT Ashby [facility] ([place]) [facility] 08-10-2021 Albumin [Mass/Vol] 3.9 g/dL Normal 3.2-5.0 [facility] Comment on above: Performed By: #### L [id number] #### [facility] [place] [address] Albumin/Globulin [Mass ratio] 1.3 {ratio} Normal 0.8-2.0 [facility] Comment on above: Performed By: #### L [id number] #### [facility] [address] [place] [address] ALK PHOS 126 U/L High 45-117 [facility] Comment on above: Performed By: #### L [id number] #### [facility] [address] [place] [address] ALT [Catalytic activity/Vol] 140 U/L High 13-61 [facility] Comment on above: Result Comment: RESU LTS MAY BE FALSELY DEPRESSED AFTER THE ADMINISTRATION OF SULFASALAZINE AND/OR SULFAPYRIDINE. Performed By: #### L [id number] #### [facility] [address] [place] [address] AST [Catalytic activity/Vol] 57 U/L High 8-34 [facility] Comment on above: Result Comment: RESU LTS MAY BE FALSELY DEPRESSED AFTER THE ADMINISTRATION OF SULFASALAZINE AND/OR SULFAPYRIDINE. Performed By: #### L [id number] #### [facility] [address] [place] [address] BILI DIRECT 0.2 MG/DL Normal 0.00-0.36 [facility] Comment on above: Result Comment: NOTE NEW NORMAL RANGE DUE TO REAGENT CHANGE Performed By: #### L [id number] #### [facility] [address] [place], [place] [id number] BILI TOTAL 0.40 MG/DL Normal 0.2-1.0 [facility] Comment on above: Performed By: #### L [id number] #### [facility] [place] [address] Globulin (S) [Mass/Vol] 3.0 g/dL Normal 2.2-4.[address] [facility] Comment on above: Performed By: #### L [id number] #### [facility] [address] [place] [address] Protein [Mass/Vol] 6.9 g/dL Normal 6.0-8.5 [facility] Comment on above: Performed By: #### L [id number] #### [facility] [address] [place] [address] LIVERon 07-27-2021 Albumin [Mass/Vol] 4.3 g/dL Normal 3.2-5.0 [facility] Comment on above: Performed By: #### L [id number] #### [facility] [address] [place] [address] Albumin/Globulin [Mass ratio] 1.5 {ratio} Normal 0.8-2.0 [facility] Comment on above: Performed By: #### L [id number] #### [facility] [address] [place] [address] ALK PHOS 129 U/L High 45-117 [facility] Comment on above: Performed By: #### L 500.23100 #### [facility] [address] [place] [address] ALT [Catalytic activity/Vol] 137 U/L High 13-61 [facility] Comment on above: Result Comment: RESU LTS MAY BE FALSELY DEPRESSED AFTER THE ADMINISTRATION OF SULFASALAZINE AND/OR SULFAPYRIDINE. Performed By: #### L [id number] #### [facility] [address] [place] [address] AST [Catalytic activity/Vol] 48 U/L High 8-34 [facility] Comment on above: Result Comment: RESU LTS MAY BE FALSELY DEPRESSED AFTER THE ADMINISTRATION OF SULFASALAZINE AND/OR SULFAPYRIDINE. Performed By: #### L [id number] #### [facility] [address] [place] [address] BILI DIRECT 0.2 MG/DL Normal 0.00-0.36 [facility] Comment on above: Result Comment: NOTE NEW NORMAL RANGE DUE TO REAGENT CHANGE Performed By: #### L [id number] #### [facility] [address] [place] [address] BILI TOTAL 0.60 MG/DL Normal 0.2-1.0 [facility] Comment on above: Performed By: #### L [id number] #### [facility] [address] [place] [address] Globulin (S) [Mass/Vol] 2.8 g/dL Normal 2.2-4.[address] [facility] Comment on above: Performed By: #### L [id number] #### [facility] [address] [place] [address] Protein [Mass/Vol] 7.1 g/dL Normal 6.0-8.5 [facility] Comment on above: Performed By: #### L [id number] #### [facility] [address] [place] [address] Patient Letteron 07-24-2020 Patient Letter July 24, 2020 KEKE PEMBERTON [address] [place] [id number] Dear KEKE PEMBERTON, I would like to thank you for being a patient in our office. We value all of our patients and strive to provide the best medical care possible in the most comfortable setting. We are concerned when you are unable to keep a scheduled appointment. Please contact our office at [phone] so we can reschedule the appointment for a date and time that will work for you. Please understand that when we schedule your appointment, we are reserving time for your particular needs. We kindly ask that if you must change an appointment, please give at least 24 hours notice. This courtesy makes it possible to give your reserved time to another patient who also needs medical care. We know that your time is valuable. We understand circumstances may arise which make it impossible for you to keep a schedule appointment. If you find it difficult to keep your appointment please call [phone] so we may assist you. Thank you very much for your understanding. Please call us at [phone] should you have any questions. Normal [facility] Emergency Department Summary on 07-22-2020 Emergency Department Summary [facility] Medical Records Department [address] [place] [address] Emergency Department Summary 07/22/20 MR#: [id number] Acct: [id number] Name: KEKE PEMBERTON Rep #: [id number] : 1990 29 From: Horacio Juarez MD PCP: Care Physician, No Primary Status:PRE ER History of Present Illness Chief Complaint: Abscess Detail of Chief Complaint: penis pain Informant: Patient Onset: Days - several Context: Gradual Onset Timing: Continuous Quality: sore, red Location: base of penis Current Severity: Severe Maximum Severity: Severe Worsened by: palpation Relieved by: nothing Associated Symptoms: none Past Medical History - Allergies and Home Meds Allergies/Adverse Reactions: Allergies No Known Allergies Allergy (Verified 07/22/20 04:22) Primary Care Physician: Care Physician,No Primary [Primary Care Provider] - Smoking Status: Current every day smoker Review of Systems General: Denies: Chills, Fever, Sweats Skin: Reports: Rash - penis Neurological: Reports: Headache. Denies: Weakness, Numbness Physical Exam Vital Signs/Narrative: Vital Signs Temp Pulse Resp BP Pulse Ox 07/22/20 04:30 98.2 F 95 16 123/85 H 98 07/22/20 04:25 98.2 F 95 16 123/85 H 98 07/22/20 04:23 98.2 F 95 16 123/85 H 98 Inital Vital Signs reviewed: Yes General: Well nourished, Well developed, No Acute Distress Head: Normocephalic, Atraumatic ENT: Moist mucous membranes, No rhinorrhea Respiratory: No distress : - - Area of tender erythema. No fluctuance. No abscess. Small scar in this region without discharge. No extension into the scrotum. Skin: Normal color, No rash, No Trauma Neurological: Alert, Oriented x3, Cranial nerves II-XII grossly intact, Normal Strength, Normal Sensation, Normal Gait Psychological: Normal affect, Normal Mood Diagnostic/Tx/Re-cindy l - Medical Decision Making Patient told nurses that he needed narcotic pain medication for this problem and Tylenol and ibuprofen were not helping. When I asked him about his visit today, he spent the first 5 minutes or so talking about how the pharmacist should have filled the prescription for [place] that he was initially given because although a prescription that was filled for Suboxone was seen, it was filled by my mom down in [place], and that was 2 or 3 weeks ago and they only give me 1 weeks worth. When I asked him why he was on Suboxone, he said alcohol problems, to which I responded that this medication is typically given for opiate dependence, he acted surprised and states that he did not feel like he needs it anymore so he stopped taking it. When asked why he thought he needed narcotics for this, he then acted defensive so that he did not need narcotics, that he just needed the pain on his penis to go away. I told him I would be happy to give him something nonnarcotic to help with his pain, but it may not be reasonable to expect a pill to take the pain away until the infection is gone. I advised him on that matter, that the area does not appear to be an abscess now, and according to the other physician's exam/documentation, it may be improving and that it typically does take several days for antibiotics to start working, so he has not failed them and should continue them as they will likely help his pain as they help the problem. His response to this was this is BS. Ordered him a dose of Toradol prior to discharge, after telling him that I do not think narcotics are needed for his problem. He left prior to discharge and without the medication. Disposition: Left prior to discharge ED Disposition - Plan for ED Patient: Diagnosis: Cellulitis, penis Instructions: ED Abscess Antibiotic Treatment Only Referrals: Ceasar Cunningham MD [STAFF PHYSICIAN] - 3-5 Days if not improving What to do if you have Problems For any increased pain, shortness of breath, bleeding, nausea or vomiting, chest pain, or any unexpected problems, contact your Primary Care Provider. Call [facility] ([phone]) or report to the closest Emergency Room. Call 911 if necessary. 07/22/20 0504 Date Horacio Juarez MD Cosigner Signature (If Indicated): Date __ CC: No Primary Care Physician Normal [facility] Emergency Department Summary on 07-21-2020 Emergency Department Summary [facility] Medical Records Department [address] [place] [address] Emergency Department Summary 07/21/20 MR#: [id number] Acct: [id number] Name: KEKE PEMBERTON Rep #: [id number] : 1990 29 From: Juan Khan MD PCP: Care Physician, No Primary Status:PRE ER - ER Visit Summary Date of Service: 07/21/20 Chief Complaint: Pharmacy will not fill my medication History of Present Illness: The patient is a [address] Cunningham for prior penile abscesses. He reports that he has penile pain that began approximately 1 week ago. States that he was seen in the emergency department earlier today and that they prescribed Bactrim, Keflex, and [place]. The pharmacy would not fill the [place]. Physical Examination: Vitals: 97.6, 127/80, 95, 16, 99% on room air which is not hypoxic. Patient is alert with a normal gait. He refused any further physical exam. Emergency Department Course and Treatment: I discussed with the patient the pharmacy would not fill his [place] because he is on Suboxone. I suggested that he use Tylenol and/or ibuprofen for pain. He became upset and walked out. Treatment Plan: Patient has prescriptions for Bactrim and Keflex. He is instructed to follow-up with Dr. Cunningham. Disposition: To home in stable condition. Impression: 1. Penile pain. 2. Opiate seeking behavior. This note was generated with [employer] dictation software. It may contain incorrect words, spelling, and punctuation that were not noted in review of the chart prior to signing ED Disposition - Plan for ED Patient: Referrals: Care Physician,No Primary [Primary Care Provider] - What to do if you have Problems For any increased pain, shortness of breath, bleeding, nausea or vomiting, chest pain, or any unexpected problems, contact your Primary Care Provider. Call [facility] ([phone]) or report to the closest Emergency Room. Call 911 if necessary. 07/21/20 0910 Date Juan Bill Petersigner Signature (If Indicated): Date __ CC: No Primary Care Physician Normal [facility] Emergency Department Summary [facility] Medical Records Department [address] [place] [address] Emergency Department Summary 07/21/20 MR#: [id number] Acct: [id number] Name: KEKE PEMBERTON Rep #: [id number] : 1990 29 From: Malissa Hannah MD PCP: Care Physician, No Primary Status:DEP ER History of Present Illness Chief Complaint: Male Pain/Injury Informant: Patient Onset: Days - 1 week Context: Gradual Onset Current Severity: Mild Maximum Severity: Moderate Narrative: Patient presents with pain and tenderness to the proximal aspect of his penis. He has had 2 prior abscesses in this area. Patient states about 1 week ago he started noticing increased pain and some slight drainage again. No fever or chills. No problems with urinating. - Past Medical History (1) Anxiety Status: Chronic (2) Asthma Status: Chronic Past Medical History - Allergies and Home Meds Allergies/Adverse Reactions: Allergies No Known Allergies Allergy (Verified 07/21/20 05:00) Primary Care Physician: Ceasar Cunningham MD [STAFF PHYSICIAN] - As Needed Prior records reviewed: Yes Lives: With Family Smoking Status: Current every day smoker Review of Systems General: Denies: Chills, Fever Eyes: Denies: Visual changes - bilaterally ENT: Denies: Bilateral ear pain Cardiovascular: Denies: Chest pain Respiratory: Denies: Dyspnea Gastrointestinal: Denies: Abdominal pain, Nausea, Vomiting, Diarrhea Genitourinary: Reports: - - Pain/lesion on proximal penis Musculoskeletal: Denies: Extremity Pain Skin: Reports: Abscess Neurological: Denies: Headache Hematologic: Denies: Easy bruising, Easy bleeding Allergy: Denies: Uticaria Physical Exam Vital Signs/Narrative: Vital Signs Temp Pulse Resp BP Pulse Ox 07/21/20 04:53 97.9 F 114 H 18 122/78 H 96 Inital Vital Signs reviewed: Yes General: Well nourished, Well developed Head: Normocephalic Neck: Supple Cardiovascular: Regular rate, Regular rhythm Respiratory: No distress, CTA bilaterally Abdomen: Soft, Nontender : - - Area of induration and tenderness over the ventral proximal penile shaft. Mild erythema. No spontaneous drainage. No fluctuance. Skin: Normal color Neurological: Alert, Oriented x3 Psychological: Normal affect Diagnostic/Tx/Re-cindy l - Medical Decision Making At this time I do not palpate any evidence of deep abscess that requires drainage. Patient will be given Bactrim and Keflex along with [place] for pain control. He is referred to Dr. Cunningham as he has seen this group in the past for follow-up. ED Disposition - Plan for ED Patient: Disposition: Home or Assisted Living Diagnosis: Cutaneous abscess Instructions: ED Abscess Antibiotic Treatment Only Prescriptions: Smz/Tmp Ds [Bactrim Ds] 1 tablet PO BID #20 tab Transmission Status: Received by ARTHUR PENALOZA RD Cephalexin [Keflex] 500 mg PO Q6 #40 capsule Transmission Status: Received by ARTHUR PENALOZA RD Hydrocodone Bitart/Apap 5-325 [[place] 5MG-325MG] 1 tablet PO Q6H PRN PRN 3 Days #10 tab PRN Reason: Pain Transmission Status: Received by ARTHUR PENALOZA RD Referrals: Ceasar Cunningham MD [STAFF PHYSICIAN] - As Needed What to do if you have Problems For any increased pain, shortness of breath, bleeding, nausea or vomiting, chest pain, or any unexpected problems, contact your Primary Care Provider. Call [facility] ([phone]) or report to the closest Emergency Room. Call 911 if necessary. 07/21/20700 Date Malissa Hannah MD Cosigner Signature (If Indicated): Date __ CC: No Primary Care Physician Normal [facility] COMPREHENSIVE METABOLIC PANE Vinicio 05-21-2020 Albumin [Mass/Vol] 4.4 g/dL Normal 3.2-4.8 [facility] Comment on above: Order Comment: Speci men to be collected later? N SPEC INST. 1 COMMENT: 1 Drugs suspected: 1 Comment: 1 Performed By: #### M OP, SERTOX #### [facility] [address] [place] [address] Albumin/Globulin [Mass ratio] 1.6 {ratio} Normal 0.9-2.0 [facility] Comment on above: Order Comment: Speci men to be collected later? N SPEC INST. 1 COMMENT: 1 Drugs suspected: 1 Comment: 1 Performed By: #### M OP, SERTOX #### [facility] [address] [place] [address] ALP [Catalytic activity/Vol] 107 U/L Normal 40-121 [facility] Comment on above: Order Comment: Speci men to be collected later? N SPEC INST. 1 COMMENT: 1 Drugs suspected: 1 Comment: 1 Performed By: #### M OP, SERTOX #### [facility] [address] [place] [address] ALT/SGPT 80 IU/L High 11-50 [facility] Comment on above: Order Comment: Speci men to be collected later? N SPEC INST. 1 COMMENT: 1 Drugs suspected: 1 Comment: 1 Performed By: #### M OP, SERTOX #### [facility] [address] [place] [address] AST/SGOT 39 IU/L Normal < 39 [facility] Comment on above: Order Comment: Speci men to be collected later? N SPEC INST. 1 COMMENT: 1 Drugs suspected: 1 Comment: 1 Performed By: #### M OP, SERTOX #### [facility] [address] [place] [address] Bilirubin [Mass/Vol] 0.2 mg/dL Normal 0.2-1.2 [facility] Comment on above: Order Comment: Speci men to be collected later? N SPEC INST. 1 COMMENT: 1 Drugs suspected: 1 Comment: 1 Performed By: #### M OP, SERTOX #### [facility] [address] [place] [address] Creatinine [Mass/Vol] 0.8 mg/dL Normal 0.7-1.3 [facility] Comment on above: Order Comment: Speci men to be collected later? N SPEC INST. 1 COMMENT: 1 Drugs suspected: 1 Comment: 1 Performed By: #### M OP, SERTOX #### [facility] [address] [place] [address] GFR/1.73 sq M predicted among non-blacks MDRD (S/P/Bld) [Vol rate/Area] mL/min/{1.73_m2} Normal [facility] Comment on above: Order Comment: Speci men to be collected later? N SPEC INST. 1 COMMENT: 1 Drugs suspected: 1 Comment: 1 Result Comment: TO ESTIMATE GFR FOR AMERICANS MULTIPLY THE RESULT BY 1.21. GFR LESS THAN 60 mL/min/1.73m2: SUGGESTIVE OF CHRONIC KIDNEY DISEASE. GFR LESS THAN 15 mL/min/1.73m2: SUGGESTIVE OF END STAGE RENAL DISEASE. Performed By: #### M OP, SERTOX #### [facility] [address] [place] [address] Globulin (S) [Mass/Vol] 2.7 G/dL Normal [facility] Comment on above: Order Comment: Speci men to be collected later? N SPEC INST. 1 COMMENT: 1 Drugs suspected: 1 Comment: 1 Performed By: #### M OP, SERTOX #### [facility] [address] [place] [address] Glucose [Mass/Vol] 116 mg/dL High 74-106 [facility] Comment on above: Order Comment: Speci men to be collected later? N SPEC INST. 1 COMMENT: 1 Drugs suspected: 1 Comment: 1 Result Comment: NOTE IF THIS IS A FASTING SPECIMEN THE FOLLOWING RANGES APPLY: NORMAL 70 TO 99 mg/dL PREDIABETIC 100 TO 125 mg/dL DIABETIC >= 126 mg/dL Performed By: #### M OP, SERTOX #### [facility] [address] [place] [address] Osmolality [Osmolality] 276 mOSM/kg Normal 275-305 [facility] Comment on above: Order Comment: Speci men to be collected later? N SPEC INST. 1 COMMENT: 1 Drugs suspected: 1 Comment: 1 Performed By: #### M OP, SERTOX #### [facility] [address] [place] [address] Protein [Mass/Vol] 7.1 g/dL Normal 5.7-8.2 [facility] Comment on above: Order Comment: Speci men to be collected later? N SPEC INST. 1 COMMENT: 1 Drugs suspected: 1 Comment: 1 Performed By: #### M OP, SERTOX #### [address] [address] SGOT/SGPT RATIO 0.5 Normal 0-2 [facility] Comment on above: Order Comment: Speci men to be collected later? N SPEC INST. 1 COMMENT: 1 Drugs suspected: 1 Comment: 1 Performed By: #### M OP, SERTOX #### [facility] [address] [place] [address] Urea nitrogen [Mass/Vol] 8 mg/dL Low 9-23 [facility] Comment on above: Order Comment: Speci men to be collected later? N SPEC INST. 1 COMMENT: 1 Drugs suspected: 1 Comment: 1 Performed By: #### M OP, SERTOX #### [facility] [address] [place] [address] Urea nitrogen/Creatinine [Mass ratio] 10.0 mg/mg Normal 6-20 [facility] Comment on above: Order Comment: Speci men to be collected later? N SPEC INST. 1 COMMENT: 1 Drugs suspected: 1 Comment: 1 Performed By: #### M OP, SERTOX #### [facility] [address] [place] [address] Anion gap [Moles/Vol] 9.4 mmol/L Normal 8-22 [facility] Comment on above: Order Comment: Speci men to be collected later? N SPEC INST. 1 COMMENT: 1 Drugs suspected: 1 Comment: 1 Performed By: #### M OP, SERTOX #### [facility] [address] [place] [address] CO2 [Moles/Vol] 32 mmol/L High 20-31 [facility] Comment on above: Order Comment: Speci men to be collected later? N SPEC INST. 1 COMMENT: 1 Drugs suspected: 1 Comment: 1 Performed By: #### M OP, SERTOX #### [facility] [address] [place] [address] Calcium [Mass/Vol] 9.2 mg/dL Normal 8.7-10.4 [facility] Comment on above: Order Comment: Speci men to be collected later? N SPEC INST. 1 COMMENT: 1 Drugs suspected: 1 Comment: 1 Performed By: #### M OP, SERTOX #### [facility] [address] [place] [address] Chloride [Moles/Vol] 101 mmol/L Normal 99-109 [facility] Comment on above: Order Comment: Speci men to be collected later? N SPEC INST. 1 COMMENT: 1 Drugs suspected: 1 Comment: 1 Performed By: #### M OP, SERTOX #### [facility] [address] [place] [address] Potassium [Moles/Vol] 3.9 mmol/L Normal 3.6-5.1 [facility] Comment on above: Order Comment: Speci men to be collected later? N SPEC INST. 1 COMMENT: 1 Drugs suspected: 1 Comment: 1 Performed By: #### M OP, SERTOX #### [facility] [address] [place] [address] Sodium [Moles/Vol] 138 mmol/L Normal 132-146 [facility] Comment on above: Order Comment: Speci men to be collected later? N SPEC INST. 1 COMMENT: 1 Drugs suspected: 1 Comment: 1 Performed By: #### M OP, SERTOX #### [facility] [address] [place] [address] ER CBC WITH DIFFERENTIALon 0 - ABSOLUTE BASOPHIL COUNT 0 10 3/uL Low 0.02-0.05 L [facility] Comment on above: Order Comment: Speci men to be collected later? N SPEC INST. 1 COMMENT: 1 Performed By: #### E RCD #### [facility] [address] [place] [address] ABSOLUTE NEUTROPHIL COUNT 9.6 10 3/uL High 1.8-7.0 [facility] Comment on above: Order Comment: Speci men to be collected later? N SPEC INST. 1 COMMENT: 1 Performed By: #### E RCD #### [facility] [address] [place] [address] Basophils/100 WBC (Bld) 0.4 % Normal 0-1 L [facility] Comment on above: Order Comment: Speci men to be collected later? N SPEC INST. 1 COMMENT: 1 Performed By: #### E RCD #### [facility] [address] [place] [address] Eosinophils (Bld) [#/Vol] 0.2 10 3/uL Normal 0.05-0.25 [facility] Comment on above: Order Comment: Speci men to be collected later? N SPEC INST. 1 COMMENT: 1 Performed By: #### E RCD #### [facility] [address] [place] [address] Eosinophils/100 WBC (Bld) 1.9 % Normal 1-4 [facility] Comment on above: Order Comment: Speci men to be collected later? N SPEC INST. 1 COMMENT: 1 Performed By: #### E RCD #### [facility] [address] [place] [address] Hematocrit (Bld) [Volume fraction] 44.5 % Normal 41.0-53.0 [facility] Comment on above: Order Comment: Speci men to be collected later? N SPEC INST. 1 COMMENT: 1 Performed By: #### E RCD #### [address] [address] Hemoglobin (Bld) [Mass/Vol] 14.7 g/dL Normal 13.5-17.5 [facility] Comment on above: Order Comment: Speci men to be collected later? N SPEC INST. 1 COMMENT: 1 Performed By: #### E RCD #### [facility] [address] [place] [address] Lymphocytes (Bld) [#/Vol] 1.4 10 3/uL Low 1.5-3.0 [facility] Comment on above: Order Comment: Speci men to be collected later? N SPEC INST. 1 COMMENT: 1 Performed By: #### E RCD #### [facility] [address] [place] [address] Lymphocytes/100 WBC (Bld) 11.6 % Low 24-44 [facility] Comment on above: Order Comment: Speci men to be collected later? N SPEC INST. 1 COMMENT: 1 Performed By: #### E RCD #### [facility] [address] [place] [address] MCH (RBC) [Entitic mass] 33.0 GM/DL Normal 31.0-37.0 [facility] Comment on above: Order Comment: Speci men to be collected later? N SPEC INST. 1 COMMENT: 1 Performed By: #### E RCD #### [address] [place] [address] MCV (RBC) [Entitic vol] 89.3 fL Normal 80.0-100.0 L [facility] Comment on above: Order Comment: Speci men to be collected later? N SPEC INST. 1 COMMENT: 1 Performed By: #### E RCD #### [facility] [address] [place] [address] MEAN CELL HEMOGLOBIN 29.5 PG Normal 26.0-34.0 [facility] Comment on above: Order Comment: Speci men to be collected later? N SPEC INST. 1 COMMENT: 1 Performed By: #### E RCD #### [address] [address] Monocytes (Bld) [#/Vol] 0.7 10 3/uL Normal 0.1-1.0 [facility] Comment on above: Order Comment: Speci men to be collected later? N SPEC INST. 1 COMMENT: 1 Performed By: #### E RCD #### [facility] [address] [place] [address] Monocytes/100 WBC (Bld) 5.8 % Normal 1-7 L [facility] Comment on above: Order Comment: Speci men to be collected later? N SPEC INST. 1 COMMENT: 1 Performed By: #### E RCD #### [facility] [address] [place] [address] Neutrophils/100 WBC (Bld) 80.3 % High 36-71 [facility] Comment on above: Order Comment: Speci men to be collected later? N SPEC INST. 1 COMMENT: 1 Performed By: #### E RCD #### [facility] [address] [place] [address] Platelet mean volume (Bld) [Entitic vol] 7.1 UM3 Low 7.4-10.4 [facility] Comment on above: Order Comment: Speci men to be collected later? N SPEC INST. 1 COMMENT: 1 Performed By: #### E RCD #### [facility] [address] [place] [address] Platelets (Bld) [#/Vol] 279 TH/MM3 Normal 140-440 L [facility] Comment on above: Order Comment: Speci men to be collected later? N SPEC INST. 1 COMMENT: 1 Performed By: #### E RCD #### [facility] [address] [place] [address] RBC (Bld) [#/Vol] 4.98 MIL/MM3 Normal 4.50-5.90 [facility] Comment on above: Order Comment: Speci men to be collected later? N SPEC INST. 1 COMMENT: 1 Performed By: #### E RCD #### [facility] [address] [place] [address] RED CELL DISTRIBUTION WID 13.4 UNITS Normal 11.5-14.5 [facility] Comment on above: Order Comment: Speci men to be collected later? N SPEC INST. 1 COMMENT: 1 Performed By: #### E RCD #### [facility] [address] [place] [address] WBC (Bld) [#/Vol] 11.9 TH/MM3 High 4.5-11.0 [facility] Comment on above: Order Comment: Speci men to be collected later? N SPEC INST. 1 COMMENT: 1 Performed By: #### E RCD #### [address] [address] ER NOTEon 05-21-2020 ER NOTE [facility] EMERGENCY RECORD TRIAGE ([place] May 21, 2020 13:25 YA1) TRIAGE NOTES: pt ambulates to triage, pt sts he's addicted to heroin and wants treatment, pt sts last use was couple of days ago, pt reports has been using for 6 months, denies using any other drugs, pt denies other symptoms, nad noted. ([place] May 21, 2020 13:25 YA1) PATIENT: NAME: Keke Pemberton, AGE: 29, GENDER: male, : Fri1990, TIME OF GREET: [place] May 21, 2020 13:21, PREFERRED LANGUAGE: Swazi, KG WEIGHT: 72.57, , , Family MD: PHYSICIAN, NO, MRSA/VRE - VERIFY: No, P/A DRUG SCREEN RQ?: NO, ADVANCED DIRECTIVES: No. (FriMay 21, 2020 13:25 YA1) ADMISSION: URGENCY: MEG LEVEL 4, DEPT: Emergency, BED: WAITING. (FriMay 21, 2020 13:25 YA1) VITAL SIGNS: BP: 137/85, Pulse: 79, Resp: 18, Temp: 97.8, Pain: 0, O2 sat: 100 on (ra), Time: 05/21/2020 13:22. (FriMay 21, 2020 13:22 YA1) COMPLAINT: Pt Sts needs Eval. (FriMay 21, 2020 13:26 YA1) ASSESSMENT: Triage assessment performed. (FriMay 21, 2020 13:25 YA1) PAIN: No complaint of pain. (FriMay 21, 2020 13:25 YA1) ABUSE SCREENING: No domestic violence. (FriMay 21, 2020 13:25 YA1) BH SCREENIN. In the last 30 days have you wished you were or wished you could go to sleep and not wake up? No, 2. In the last 30 days have you had any actual thoughts of killing yourself? No, 6. Have you ever done anything, started to do anything, or prepared to do anything to end your life? No, Do you have thoughts about harming others? No. (FriMay 21, 2020 13:25 YA1) PROVIDERS: TRIAGE NURSE: Jailene Lomeli R.N. ([place] May 21, 2020 13:25 YA1) KNOWN ALLERGIES NKDA CURRENT MEDICATIONS ([place] May 21, 2020 13:25 YA1) None HPI ALCOHOL ABUSE/SUBSTANCE ABUSE (FriMay 21, 2020 13:53 MJM4) HISTORY OF PRESENT ILLNESS: patient presents to ED for evaluation of withdrawal. patient states he has been using heroin daily for the past 6 months and requesting detox. last use 2 days ago. reports mild sweats, nausea, diarrhea. denies tremors, chest pain, fevers, visual disturbances. denies any other drug use. CHIEF COMPLAINT: Patient presents for evaluation of detox. HISTORIAN: History provided by patient. SEVERITY: Current severity of pain rated as 0/10. GCS: Eye opening: (4) - Spontaneous, Verbal: (5) - Oriented/conversive, Motor: (6) - Obeys commands/Spontaneous , GCS Name: PembertonKeke monge : 1990 M29 MedRec: [id number] AcctNum: [id number] Page 1 of 9 [facility] EMERGENCY RECORD Total: 15. ROS (FriMay 21, 2020 13:55 MJM4) CONSTITUTIONAL: Historian reports night sweats. GI: Historian reports diarrhea, Historian reports nausea. PSYCHIATRIC: Historian reports drug abuse, Historian reports heroin abuse. NOTES: All systems reviewed, negative except as described above. PAST MEDICAL HISTORY MEDICAL HISTORY: No past medical history. (FriMay 21, 2020 13:25 YA1) SURGICAL HISTORY MALE: Patient has no surgical history. (FriMay 21, 2020 13:25 YA1) PSYCHIATRIC HISTORY: Psychiatric history includes, anxiety. (FriMay 21, 2020 13:25 YA1) SOCIAL HISTORY: Patient denies alcohol use, Patient currently uses drugs, abuses heroin, Patient currently uses tobacco, smokes cigarettes, daily, Patient smokes 1/2 packs per day. (FriMay 21, 2020 13:25 YA1) NOTES: Nursing records reviewed, Agree with nursing records. (FriMay 21, 2020 13:55 MJM4) PHYSICAL EXAM (FriMay 21, 2020 13:56 MJM4) CONSTITUTIONAL: Patient afebrile, Pulse normal, Blood pressure normal, Respiratory rate normal, Patient appears non toxic, pain free. Patient alert and oriented to person, place and time. EYES: Pupils equally round and reactive to light. ENT: Mouth exam normal, mucous membranes moist. RESPIRATORY CHEST: Respiratory and chest exam normal, Respiratory exam included findings of no respiratory distress, Breath sounds clear. CARDIOVASCULAR: Cardiovascular assessment normal, Cardiovascular exam included findings of heart rate regular rate and rhythm, Heart sounds normal. ABDOMEN MALE: Abdominal exam normal, Abdominal exam included findings of abdomen nontender. NEURO: Neuro exam findings include patient oriented to person, place and time, Speech normal, Gait normal. SKIN: Skin exam included findings of skin warm, dry, and normal in color. PSYCHIATRIC: Psychiatric exam included findings of patient oriented to person place and time, Affect, flat, Judgment normal, Insight normal, No suicidal ideations, No homicidal ideations. VITAL SIGNS VITAL SIGNS: BP: 137/85, Pulse: 79, Resp: 18, Temp: 97.8, Pain: 0, O2 sat: 100 on (ra). (FriMay 21, 2020 13:22 YA1) BP: 141/79, Pulse: 80, Resp: 16, Pain: 0, O2 sat: 97 on (ra). (Fri Name: Keke Pemberton : 1990 M29 MedRec: [id number] AcctNum: [id number] Page 2 of 9 [facility] EMERGENCY RECORD 2020 15:51 TSD2) NURSING ASSESSMENT: A SEPSIS SCREENING TOOL (FriMay 21, 2020 13:25 YA1) SEPSIS SCREENING TOOL: Patient has no infection that is suspected or identified, This patient has been identified as NOT meeting the severe sepsis criteria as defined by the CMS guidelines. NURSING ASSESSMENT: FALL RISK ADULT (FriMay 21, 2020 13:36 SAB8) BAILON FALL SCALE: History of falling: No, Is there a secondary diagnosis: No, Ambulatory aid: None/BR/WC/Nurse(0), Gait/transferring: Weak (10), IV/heparin lock: Yes (20), Mental status: Oriented to own ability (0), Total: 30, FALL RISK LEVEL: LOW, Cart in low position and wheels locked, Cart rails up, Floor free of tripping/falling hazards, Call light and phone within patient's reach. NURSING ASSESSMENT: PSYCH/SOCIAL (FriMay 21, 2020 13:36 SAB8) CONSTITUTIONAL: Patient arrives ambulatory, Gait steady, Patient appears comfortable, Patient cooperative, alert. Oriented to person, place and time, Skin warm, Skin dry, Skin normal in color, Mucous membranes pink, moist. Patient is well-groomed. PSYCH/SOCIAL: Psychiatric/social assessment findings include affect, depressed, flat, no complaint of visual hallucinations, no complaint of auditory hallucinations, no complaint of tactile hallucinations, no suicidal ideations, no homicidal ideations, no reported overdose, Notes: PT STATES HAVING BODY ACHES AND PAINS R/T WITHDRAWAL WITH HEROIN. PT STATES HE HASN'T USED IN A COUPLE DAYS AND WANTS TO GET HELP. PT STATES HE WAS USING HEROIN DAILY FOR 6 MONTHS. PT A+O X3, RR EASY AND UNLABORED AT THIS TIME. MARCIANO AT BEDSIDE. NOTES: Patient tolerated procedure well. SAFETY: Side rails up, Cart/Stretcher in lowest position, Family at bedside, Call light within reach, Hospital ID band on. EVENTS ATTENDING: GAIL Seay Meghan J saw the patient at [place] May 21, 2020 13:34. (FriMay 21, 2020 13:34 MJM4) DOCTOR CUB REPORTER: DO Zhou Brian W. saw the patient at [place] May 21, 2020 13:36. (FriMay 21, 2020 13:36 MDBK) TRANSFER: Triage to Emergency Waiting. (FriMay 21, 2020 13:25 YA1) Emergency Waiting to Emergency Department - Pod 1 13. (FriMay 21, 2020 13:25 YA1) Removed from Emergency Emergency Department - Pod 1 13. ([place] May 21, 2020 15:51 TSD2) NURSING PROCEDURE: DISCHARGE NOTE ([place] May 21, 2020 15:50 TSD2) DISCHARGE: Patient discharged to home, ambulating without assistance, family driving, accompanied by //partner , Name: Keke Pemberton : 1990 M29 MedRec: [id number] AcctNum: [id number] Page 3 of 9 [facility] EMERGENCY RECORD Summary of Care printed/ provided, Transition record given to patient, Discharge instructions given to patient, Simple or moderate discharge teaching performed, Patient treated and evaluated by physician. TIME: IV discontinued with catheter intact. Dressing placed to IV site, No Barriers to Learning, Explained DCI, Handouts given for DCI, Patient Receptive to DCI, Cooperative with DCI. NURSING PROCEDURE: ENT ([place] May 21, 2020 14:09 LWB) PATIENT IDENTIFIER: Patient's identity verified by patient stating name, Patient's identity verified by patient stating date, Patient's identity verified by hospital ID bracelet. ENT: Nasal swab collected, labeled in the presence of the patient and sent to the lab for testing of, COVID. NOTES: Patient tolerated procedure well. SAFETY: Side rails up, Cart/Stretcher in lowest position, Family at bedside, Call light within reach, Hospital ID band on. NURSING PROCEDURE: IV ([place] May 21, 2020 14:40 TSD2) PATIENT IDENITIFIER: Patient's identity verified by patient stating name, Patient's identity verified by patient stating date, Patient's identity verified by hospital ID bracelet. IV SITE 1: IV established, to the left antecubital, using a 20 gauge catheter, in one attempt, IV site prepped with CHLORAPREP, Saline lock established, Labs drawn at time of placement, labeled in the presence of the patient and sent to lab. FLUIDS: Fluids added to IV site 1, 0.9 normal saline 1 liter hung, first bag, IV bolus of 1000 ml established, at a rate of, ml per hour 999 ml/hr, Bolus to infuse over 60 MIN, via primary tubing, via pump tubing, on an IV pump. FOLLOW-UP SITE 1: After procedure, sterile transparent dressing applied, After procedure, no drainage at IV site, After procedure, no swelling at IV site, After procedure, no redness at IV site. NURSING PROCEDURE: URINE COLLECTION ([place] May 21, 2020 14:40 TSD2) PATIENT IDENTIFIER: Patient's identity verified by patient stating name, Patient's identity verified by patient stating date, Patient's identity verified by hospital ID bracelet. URINE COLLECTION MALE: Urine collected by mid-stream clean catch, urine yellow in color, and clear, Specimen labeled in the presence of the patient and sent to lab. SOCIAL WORK ASSESSMENT PSYCHOSOCIAL ASSESSMENT: Notes: SW faxed completed precertification form to [facility]. ([place] May 21, 2020 14:09 TB) Notes: SW gave pt contact information for mental health and AoD resources that he can utilize to obtain continued care. Pt confirmed that he is able to contact agencies and schedule intake independently. Information also provides information for walk-in Name: Keke Pemberton : 1990 M29 MedRec: [id number] AcctNum: [id number] Page 4 of 9 [facility] EMERGENCY RECORD appointments for addiction detox and psychiatric care. Pt reports that he will go to [facility] for a walk-in appointment to engagement in detox treatment. ([place] May 21, 2020 15:44 TB) ORDERS ([place] May 21, 2020 13:47 MJ4) ER URINALYSIS PROFILE: Ordered by: GAIL Seay Meghan J Ordered for: GAIL Seay Meghan J Status: Active. ER's CBC WITH DIFF: Ordered by: GAIL Seay Meghan J Ordered for: GAIL Seay Meghan J Status: Active. IV 0.9%Na Cl 1000 mL Bolus: Ordered by: GAIL Seay Meghan J Ordered for: GAIL Seay Meghan J Status: Done by: DEMARCO Villasenor, [facility] May 21, 2020 14:40. IV Saline Lock: Ordered by: GAIL Seay Meghan J Ordered for: GAIL Seay Meghan J Status: Done by: DEMARCO Villasenor, [facility] May 21, 2020 14:40. MULTI-ORGAN PANEL: Ordered by: GAIL Seay Meghan J Ordered for: GAIL Seay Meghan J Status: Active. SERUM TOXICOLOGY PROFILE: Ordered by: GAIL Seay Meghan J Ordered for: GAIL Seay Meghan J Status: Active. MARJORIE SARS AG: Ordered by: GAIL Seay Meghan J Ordered for: GAIL Seay Meghan J Status: Active. URINE DRUG TOX (IN-HOUSE): Ordered by: GAIL Seay Meghan J Ordered for: GAIL Seay Meghan J Status: Active. ORDER DETAILS Order Name: ER URINALYSIS PROFILE, Status: Active, Time: 13:47 05/21/2020, User: GAIL Seay Meghan J, - Ordered for: GAIL Seay Meghan J, - Entered by: GAIL Seay Meghan J - [place] May 21, 2020 13:47, - Quantity: 1, Order Name: ER's CBC WITH DIFF, Status: Active, Time: 13:47 05/21/2020, User: GAIL Seay Meghan J, - Ordered for: GAIL Seay Meghan J, - Entered by: GAIL Seay Meghan J - [place] May 21, 2020 13:47, - Quantity: 1, Order Name: IV 0.9%Na Cl 1000 mL Bolus, Status: Done, Time: 14:40 05/21/2020, User: GAIL Seay Meghan J, - Ordered for: GAIL Seay Meghan J, - Entered by: GAIL Seay Meghan J - [place] May 21, 2020 13:47, - Quantity: 1, Name: Keke Pemberton : 1990 M29 MedRec: [id number] AcctNum: [id number] Page 5 of 9 [facility] EMERGENCY RECORD Order Name: IV Saline Lock, Status: Done, Time: 14:40 05/21/2020, User: GAIL Seay Meghan J, - Ordered for: GAIL Seay Meghan J, - Entered by: GAIL Seay Meghan J - [place] May 21, 2020 13:47, - Quantity: 1, Order Name: MULTI-ORGAN PANEL, Status: Active, Time: 13:47 05/21/2020, User: GAIL Seay Meghan J, - Ordered for: GAIL Seay Meghan J, - Entered by: GAIL Seay Meghan J - [place] May 21, 2020 13:47, - Quantity: 1, Order Name: SERUM TOXICOLOGY PROFILE, Status: Active, Time: 13:47 05/21/2020, User: GAIL Seay Meghan J, - Ordered for: GAIL Seay Meghan J, - Entered by: GAIL Seay Meghan J - [place] May 21, 2020 13:47, - Quantity: 1, Order Name: [facility]IE SARS AG, Status: Active, Time: 13:47 05/21/2020, User: GAIL Seay Meghan J, - Ordered for: GAIL Seay Meghan J, - Entered by: GAIL Seay Meghan J - [place] May 21, 2020 13:47, - Quantity: 1, Order Name: URINE DRUG TOX (IN-HOUSE), Status: Active, Time: 13:47 05/21/2020, User: GAIL Seay Meghan J, - Ordered for: GALI Seay Meghan J, - Entered by: GAIL Seay Meghan J - [place] May 21, 2020 13:47, - Quantity: 1. RESULTS LABORATORY: MARJORIE SARS AG [facility] May 21, 2020 14:12, MARJORIE SARS ANTIGEN PRESUMPTIVE NEGATIVE , Range (NEGATIVE), Negative results, from patients with symptom onset beyond, five days, should be treated as presumptive and confirmation, a molecular assay is recommended.. [facility]IE SARS AG EUA COMMENT COMMENT , This test has not been FDA cleared or approved; this test, has been authorized by FDA under an Emergency Use, Authorization (EUA). Authorization for use is approved until, the public health emergency is terminated or the EUA is, revoked by the FDA. ([place] May 21, 2020 14:41 MJM4) ER CBC WITH DIFFERENTIAL [place] May 21, 2020 14:30, *WHITE BLOOD COUNT 11.9 - H TH/MM3, Range (4.5-11.0), RED BLOOD COUNT 4.98 MIL/MM3, Range (4.50-5.90), HEMOGLOBIN 14.7 GM/DL, Range (13.5-17.5), HEMATOCRIT 44.5 %, Range (41.0-53.0), MEAN CELL VOLUME 89.3 FL, Range (80.0-100.0), MEAN CELL HEMOGLOBIN 29.5 PG, Range (26.0-34.0), MEAN CORPUSCULAR HGB CONC 33.0 GM/DL, Range (31.0-37.0), RED CELL DISTRIBUTION WID 13.4 UNITS, Range (11.5-14.5), PLATELET 279 TH/MM3, Range (140-440), *MEAN PLATELET VOLUME 7.1 - L UM3, Range (7.4-10.4), *NE% 80.3 - H %, Range (36-71), *ABSOLUTE NEUTROPHIL COUNT 9.6 - H 10, Range (1.8-7.0), Name: Keke Pemberton : 1990 M29 MedRec: [id number] AcctNum: [id number] Page 6 of 9 [facility] EMERGENCY RECORD *LYMPH% 11.6 - L %, Range (24-44), *ABSOLUTE LYMPHOCYTE COUNT 1.4 - L 10, Range (1.5-3.0), MONO% 5.8 %, Range (1-7), ABSOLUTE MONOCYTE COUNT 0.7 10, Range (0.1-1.0), EO% 1.9 %, Range (1-4), ABSOLUTE EOSINOPHIL COUNT 0.2 10, Range (0.05-0.25), BA% 0.4 %, Range (0-1), *ABSOLUTE BASOPHIL COUNT 0 - L 10, Range (0.02-0.05). ([place] May 21, 2020 14:41 MJM4) ER URINALYSIS [place] May 21, 2020 14:41, COLOR YELLOW , CLARITY CLEAR , SPECIFIC GRAVITY 1.018 , *PH URINALYSIS 8.5 - H , Range (4.5-8.0), PROTEIN NEGATIVE MG/DL, Range (NEGATIVE), GLUCOSE NEGATIVE , Range (NEGATIVE), KETONE NEGATIVE , Range (NEGATIVE), BILIRUBIN UA NEGATIVE , Range (NEGATIVE), BLOOD NEGATIVE , Range (NEGATIVE), NITRITE NEGATIVE , Range (NEGATIVE), UROBILINOGEN C 0.2 EU/DL, Range (0.2-1.0), LEUKOCYTES TRACE , Range (NEGATIVE), *URINE WBC 10-20 - H /HPF, Range (NONE), CAST HYALINE 0-5 /LPF, Range (NONE), CAST HYALINE 0-5 /LPF, Range (NONE), BACTERIA NONE SEEN /HPF, Range (NONE). ([place] May 21, 2020 15:15 MJM4) SERUM TOXICOLOGY PROFILE [place] May 21, 2020 14:30, *ACETAMINOPHEN (TYLENOL) < 0.1 - L MG/DL, Range (1.0-3.0), , THERAPEUTIC RANGE IS 1-2 mg/dL., LEVELS GREATER THAN 15 mg/dL AT 4 HOURS POST INGESTION, ARE POTENTIALLY TOXIC. PLEASE REFER TO DARCI, NOMOGRAM FOR LEVELS FROM 4 TO 24 HOURS POST INGESTION., , SALICYLATE < 3.0 MG/DL, Range (< 29.9), , GREATER THAN 30 mg/dL COULD BE TOXIC, , ALCOHOL MEDICAL(ETHANOL SERUM) < 10.0 MG/DL, Range (< 10), SERUM ALCOHOL REFERENCE VALUES , LESS THAN 10 mg/dL IS NEGATIVE, GREATER THAN 300 mg/dL COULD BE TOXIC, 0.0 IS REPORTED WHEN RESULT IS LESS THAN THE SENSITIVITY, OF THE METHOD., FOR MEDICAL USE ONLY , . ([place] May 21, 2020 15:15 MJM4) COMPREHENSIVE METABOLIC PANEL [place] May 21, 2020 14:30, *GLUCOSE 116 - H MG/DL, Range (74-106), , NOTE , IF THIS IS A FASTING SPECIMEN THE FOLLOWING RANGES Name: Keke Pemberton : 1990 M29 MedRec: [id number] AcctNum: [id number] Page 7 of 9 [facility] EMERGENCY RECORD APPLY:, NORMAL 70 TO 99 mg/dL, PREDIABETIC 100 TO 125 mg/dL, DIABETIC >= 126 mg/dL, , *BLOOD UREA NITROGEN 8 - L MG/DL, Range (9-23), CREATININE 0.8 MG/DL, Range (0.7-1.3), GFR (MDRD) > 60 , TO ESTIMATE GFR FOR AMERICANS MULTIPLY THE RESULT BY, 1.21., GFR LESS THAN 60 mL/min/1.73m2: SUGGESTIVE OF CHRONIC KIDNEY, DISEASE., GFR LESS THAN 15 mL/min/1.73m2: SUGGESTIVE OF END STAGE, RENAL DISEASE., BUN/CREATININE RATIO 10.0 , Range (6-20), TOTAL PROTEIN 7.1 G/DL, Range (5.7-8.2), ALBUMIN 4.4 G/DL, Range (3.2-4.8), GLOBULIN 2.7 G/dL, A/G RATIO 1.6 , Range (0.9-2.0), CALCIUM 9.2 MG/DL, Range (8.7-10.4), ALKALINE PHOSPHATASE 107 IU/L, Range (40-121), AST/SGOT 39 IU/L, Range (< 39), *ALT/SGPT 80 - H IU/L, Range (11-50), SGOT/SGPT RATIO 0.5 , Range (0-2), BILIRUBIN, TOTAL 0.2 MG/DL, Range (0.2-1.2), SODIUM 138 MMOL/L, Range (132-146), POTASSIUM 3.9 MMOL/L, Range (3.6-5.1), CHLORIDE 101 MMOL/L, Range (99-109), *CARBON DIOXIDE 32 - H MMOL/L, Range (20-31), ANION GAP 9.4 , Range (8-22), OSMOLALITY(CALCULATE D) 276 mOSM/kg, Range (275-305). (FriMay 21, 2020 15:15 MJM4) STAT TOXICOLOGY URINE FriMay 21, 2020 14:44, CREATININE URINE 90.4 mg/dl, AMPHETAMINE POS NG/ML, Range (1000 CUTOF), BARBITURATES NEG NG/ML, Range (CUTOFF 200), BENZODIAZEPINES NEG NG/ML, Range (CUTOFF 200), OPIATES POS NG/ML, Range (CUTOFF 300), PHENCYCLIDINE NEG NG/ML, Range (CUTOFF 25), COCAINE METABOLITE NEG NG/ML, Range (CUTOFF 300), METHADONE NEG NG/ML, Range (CUTOFF 300), CANNABINOIDS POS NG/ML, Range (CUTOFF 50), TOTAL TRICYCLIC NEG NG/ML, Range (CUTOFF 300), OXYCODONE NEG NG/ML, Range (CUTOFF 300). ([place] May 21, 2020 15:27 MJM4) DIAGNOSIS ([place] May 21, 2020 15:40 MJM4) FINAL: PRIMARY: polysubstance abuse. DISPOSITION PATIENT: Disposition: 01 Home or Self Care, Condition: GOOD. ([place] May 21, 2020 15:40 MJM4) Patient left the department. ([place] May 21, 2020 15:51 TSD2) INSTRUCTION ([place] May 21, 2020 15:40 MJM4) Name: Keke Pemberton : 1990 M29 MedRec: [id number] AcctNum: [id number] Page 8 of 9 [facility] EMERGENCY RECORD DISCHARGE: SUBSTANCE / DRUG ABUSE. FOLLOWUP: PHYSICIAN, NO FAMILY, . SPECIAL: Return to ER if worse Drink plenty of fluids. Follow up with primary care physician. PRESCRIPTION No recorded prescriptions ADMIN DIGITAL SIGNATURE: GAIL Seay, Winifred Licea ([place] May 21, 2020 15:52 MJM4) DEMARCO Louis, Virginia Coto ([place] May 21, 2020 16:26 SAB8) DO Zhou Brian W. ([facility] May 22, 2020 06:27 MDBK) DEMARCO Villaseonr, Neris Donald ([place] May 25, 2020 07:23 TSD2) Myrtle Hazel (FriMay 30, 2020 15:37 TBC) PATIENT DATA CHANGE: Complaint: Pt Sts needs Eval. ([place] May 21, 2020 13:26 YA1) Attending changed from (none) to GAIL Bhatia. ([place] May 21, 2020 13:29 MJM4) Doctor Surface Grinding Machine Hand changed from (none) to Manas Zhou DO. ([place] May 21, 2020 13:36 MDBK) [id number] [id number] by Interface, SSN: [id number], Zip Code: [address], , Payment: [facility]. ([place] May 21, 2020 13:37) [id number] [id number] by Interface. ([place] May 21, 2020 13:38) [id number] [id number] by Interface. ([place] May 21, 2020 13:38) Primary Nurse changed from (none) to Neris Villasenor RN. ([place] May 21, 2020 13:41 TSD2) Surface Grinding Machine Hand changed from (none) to DAPHNEY Teresa. ([place] May 21, 2020 14:10 LWB) [place]: LWB=DAPHNEY Day, Manny Snowden MDBK=DO Zhou Brian W. MJM4=GAIL Seay, Winifred Walters SAB8=DEMARCO Louis, Virginia Coto TBC=Colosimo, Myrtle BCameron TSD2=DEMARCO Villasenor, Neris Donald YA1=Jailene Lomeli R.N Name: Keke Pemberton : 1990 M29 MedRec: [id number] AcctNum: [id number] Page 9 of 9 Normal [facility] ER URINALYSISon 05-21-2020 Bacteria LM.HPF (Urine sed) [#/Area] NONE SEEN Normal [facility] Comment on above: Order Comment: Speci men to be collected later? N SOURCE? CLEAN CATCH URINE Performed By: #### E RU #### [facility] [address] [place] [address] CAST HYALINE 0-5 Normal [facility] Comment on above: Order Comment: Speci men to be collected later? N SOURCE? CLEAN CATCH URINE Performed By: #### E RU #### [facility] [address] [place] [address] WBC (U) [#/Vol] 10-20 Abnormal [facility] Comment on above: Order Comment: Speci men to be collected later? N SOURCE? CLEAN CATCH URINE Performed By: #### E RU #### [facility] [address] [place] [address] BILIRUBIN UA Negative Normal NEGATIVE [facility] Comment on above: Order Comment: Speci men to be collected later? N SOURCE? CLEAN CATCH URINE Performed By: #### E RU #### [facility] [address] [place] [address] BLOOD Negative Normal NEGATIVE [facility] Comment on above: Order Comment: Speci men to be collected later? N SOURCE? CLEAN CATCH URINE Performed By: #### E RU #### [facility] [address] [place] [address] Clarity (U) CLEAR Normal [facility] Comment on above: Order Comment: Speci men to be collected later? N SOURCE? CLEAN CATCH URINE Performed By: #### E RU #### [address] [address] Color (U) YELLOW Normal [facility] Comment on above: Order Comment: Speci men to be collected later? N SOURCE? CLEAN CATCH URINE Performed By: #### E RU #### [address] [address] Glucose [Mass/Vol] Negative Normal NEGATIVE [facility] Comment on above: Order Comment: Speci men to be collected later? N SOURCE? CLEAN CATCH URINE Performed By: #### E RU #### [facility] [address] [place] [address] KETONE Negative Normal NEGATIVE [facility] Comment on above: Order Comment: Speci men to be collected later? N SOURCE? CLEAN CATCH URINE Performed By: #### E RU #### [facility] [address] [place] [address] Nitrite Ql (U) Negative Normal NEGATIVE [facility] Comment on above: Order Comment: Speci men to be collected later? N SOURCE? CLEAN CATCH URINE Performed By: #### E RU #### [facility] [address] [place] [address] PH URINALYSIS 8.5 Abnormal 4.5-8.0 [facility] Comment on above: Order Comment: Speci men to be collected later? N SOURCE? CLEAN CATCH URINE Performed By: #### E RU #### [facility] [address] [place] [address] Protein (U) [Mass/Vol] Negative Normal NEGATIVE [facility] Comment on above: Order Comment: Speci men to be collected later? N SOURCE? CLEAN CATCH URINE Performed By: #### E RU #### [facility] [address] [place] [address] Specific gravity (U) [Rel density] 1.018 Normal [facility] Comment on above: Order Comment: Speci men to be collected later? N SOURCE? CLEAN CATCH URINE Performed By: #### E RU #### [facility] [address] [place] [address] UROBILINOGEN C 0.2 EU/DL Normal 0.2-1.0 [facility] Comment on above: Order Comment: Speci men to be collected later? N SOURCE? CLEAN CATCH URINE Performed By: #### E RU #### [facility] [address] [place] [address] WBC (Bld) [#/Vol] TRACE Normal NEGATIVE [facility] Comment on above: Order Comment: Speci men to be collected later? N SOURCE? CLEAN CATCH URINE Performed By: #### E RU #### [facility] [address] [place] [address] REFLEX CUR PEDIATRIC <24 MON UCC Normal [facility] Comment on above: Order Comment: Speci men to be collected later? N SOURCE? CLEAN CATCH URINE Performed By: #### E RU #### [address] [address] SERUM TOXICOLOGY PROFILEon 0 05-21-2020 Acetaminophen [Mass/Vol] < 0.1 Low 1.0-3.0 [facility] Comment on above: Order Comment: Speci men to be collected later? N SPEC INST. 1 COMMENT: 1 Drugs suspected: 1 Comment: 1 Result Comment: THERAPEUTIC RANGE IS 1-2 mg/dL. LEVELS GREATER THAN 15 mg/dL AT 4 HOURS POST INGESTION ARE POTENTIALLY TOXIC. PLEASE REFER TO DARCI NOMOGRAM FOR LEVELS FROM 4 TO 24 HOURS POST INGESTION. Performed By: #### M OP, SERTOX #### [facility] [address] [place] [address] ALCOHOL MEDICAL(ETHANOL SERUM) < 10.0 Normal < 10 [facility] Comment on above: Order Comment: Speci men to be collected later? N SPEC INST. 1 COMMENT: 1 Drugs suspected: 1 Comment: 1 Result Comment: ---- ------SERUM ALCOHOL REFERENCE VALUES LESS THAN 10 mg/dL IS NEGATIVE GREATER THAN 300 mg/dL COULD BE TOXIC 0.0 IS REPORTED WHEN RESULT IS LESS THAN THE SENSITIVITY OF THE METHOD. FOR MEDICAL USE ONLY Performed By: #### M OP, SERTOX #### [facility] [address] [place] [address] SALICYLATE < 3.0 Normal < 29.9 [facility] Comment on above: Order Comment: Speci men to be collected later? N SPEC INST. 1 COMMENT: 1 Drugs suspected: 1 Comment: 1 Result Comment: GREATER THAN 30 mg/dL COULD BE TOXIC Performed By: #### M OP, SERTOX #### [facility] [address] [place] [address] MARJ[facility]IE SARS AG FIAon 05-21-19 [facility]IE SARS AG EUA COMMENT COMMENT Normal [facility] Comment on above: Result Comment: This test has not been FDA cleared or approved; this test has been authorized by FDA under an Emergency Use Authorization (EUA). Authorization for use is approved until the public health emergency is terminated or the EUA is revoked by the FDA. Performed By: #### C OVAG #### [facility] [address] [place] [address] MARJORIE SARS AG INTERNAL CONTROL ACCEPTABLE Normal [facility] Comment on above: Performed By: #### C OVAG #### [address] [address] MARJORIE SARS ANTIGEN Negative Normal NEGATIVE [facility] Comment on above: Result Comment: Nega tive results, from patients with symptom onset beyond five days, should be treated as presumptive and confirmation with a molecular assay is recommended. Performed By: #### C OVAG #### [facility] [address] [place] [address] STAT TOXICOLOGY URINEon 04-29 AMPHETAMINE Positive Normal 1000 CUTOFF [facility] Comment on above: Order Comment: Speci men to be collected later? N SPEC INST. 1 Performed By: #### T OXUR #### [facility] [address] [place] [address] BARBITURATES Negative Normal CUTOFF 200 [facility] Comment on above: Order Comment: Speci men to be collected later? N SPEC INST. 1 Performed By: #### T OXUR #### [facility] [address] [place] [address] Benzodiazepines Ql (U) Negative Normal CUTOFF 200 [facility] Comment on above: Order Comment: Speci men to be collected later? N SPEC INST. 1 Performed By: #### T OXUR #### [facility] [address] [place] [address] Cannabinoids Screen Ql (U) Positive Normal CUTOFF 50 [facility] Comment on above: Order Comment: Speci men to be collected later? N SPEC INST. 1 Performed By: #### T OXUR #### [facility] [address] [place] [address] COCAINE METABOLITE Negative Normal CUTOFF 300 [facility] Comment on above: Order Comment: Speci men to be collected later? N SPEC INST. 1 Performed By: #### T OXUR #### [facility] [address] [place] [address] CREATININE URINE 90.4 mg/dl Normal [facility] Comment on above: Order Comment: Speci men to be collected later? N SPEC INST. 1 Performed By: #### T OXUR #### [facility] [address] [place] [address] Methadone Ql (U) Negative Normal CUTOFF 300 [facility] Comment on above: Order Comment: Speci men to be collected later? N SPEC INST. 1 Performed By: #### T OXUR #### [facility] [address] [place] [address] Opiates Ql (U) Positive Normal CUTOFF 300 [facility] Comment on above: Order Comment: Speci men to be collected later? N SPEC INST. 1 Performed By: #### T OXUR #### [facility] [address] [place] [address] OXYCODONE Negative Normal CUTOFF 300 [facility] Comment on above: Order Comment: Speci men to be collected later? N SPEC INST. 1 Performed By: #### T OXUR #### [facility] [address] [place] [address] Phencyclidine Ql (U) Negative Normal CUTOFF 25 [facility] Comment on above: Order Comment: Speci men to be collected later? N SPEC INST. 1 Performed By: #### T OXUR #### [facility] [address] [place] [address] TOTAL TRICYCLIC Negative Normal CUTOFF 300 [facility] Comment on above: Order Comment: Speci men to be collected later? N SPEC INST. 1 Performed By: #### T OXUR #### [facility] [address] [place] [address] Vital Signs Date Time Vital Sign Value Performing Clinician Facility 12-21-2024 15:35-0400 Body mass index (BMI) [Ratio] 19.28 kg/m2 Rubia Hill LUNCH COOK.CREW LEADER/CONTROL ROOM OPERATOR Work Phone: [facility] 12-21-2024 15:35-0400 Body temperature 98.1 [degF] Rubia Hill LUNCH COOK.CREW LEADER/CONTROL ROOM OPERATOR Work Phone: [facility] 12-21-2024 15:35-0400 Body weight 62.7 kg Rubia Hill LUNCH COOK.CREW LEADER/CONTROL ROOM OPERATOR Work Phone: [facility] 12-21-2024 15:35-0400 Diastolic blood pressure 70 mm[Hg] Rubia Hill LUNCH COOK.CREW LEADER/CONTROL ROOM OPERATOR Work Phone: [facility] 12-21-2024 15:35-0400 Heart rate 86 /min Rubia Hill LUNCH COOK.CREW LEADER/CONTROL ROOM OPERATOR Work Phone: [facility] 12-21-2024 15:35-0400 Respiratory rate 16 /min Rubia Hill LUNCH COOK.CREW LEADER/CONTROL ROOM OPERATOR Work Phone: [facility] 12-21-2024 15:35-0400 SaO2% (BldA) [Mass fraction] 99 % Rubia Hill LUNCH COOK.CREW LEADER/CONTROL ROOM OPERATOR Work Phone: [facility] 12-21-2024 15:35-0400 Systolic blood pressure 110 mm[Hg] Rubia Hill LUNCH COOK.CREW LEADER/CONTROL ROOM OPERATOR Work Phone: [facility] 08-24-2024 16:13-0400 Body height 180.3 cm [facility] Provider Work Phone: [facility] 08-24-2024 16:13-0400 Body mass index (BMI) [Ratio] 22.73 kg/m2 [facility] Provider Work Phone: [facility] 08-24-2024 16:13-0400 Body temperature 98.01 [degF] [facility] Provider Work Phone: [facility] 08-24-2024 16:13-0400 Body weight 73.94 kg [facility] Provider Work Phone: [facility] 08-24-2024 16:13-0400 Heart rate 78 /min [facility] 08-24-2024 16:13-0400 Respiratory rate 18 /min [facility] 08-24-2024 16:13-0400 SaO2% (BldA) [Mass fraction] 99 % [facility] Provider Work Phone: [facility] 08-22-2023 20:15-0400 Body temperature 98.6 [degF] Stephy Glover MD Work Phone: [employer] 08-22-2023 20:15-0400 Diastolic blood pressure 80 mm[Hg] Stephy Glover MD Work Phone: [employer] 08-22-2023 20:15-0400 Heart rate 119 /min Stephy Glover MD Work Phone: [employer] 08-22-2023 20:15-0400 Respiratory rate 13 /min Stephy Glover MD Work Phone: [facility] [employer] 08-22-2023 20:15-0400 SaO2% (BldA) [Mass fraction] 97 % Stephy Glover MD Work Phone: [employer] 08-22-2023 20:15-0400 Systolic blood pressure 112 mm[Hg] Stephy Glover MD Work Phone: [employer] 08-22-2023 20:07-0400 Body height 180.3 cm Stephy Glover MD Work Phone: [employer] 08-22-2023 20:07-0400 Body mass index (BMI) [Ratio] 20.92 kg/m2 Stephy Glover MD Work Phone: [employer] 08-22-2023 20:07-0400 Body weight 68.04 kg Stephy Glover MD Work Phone: [employer] 09-08-2021 21:41-0400 Body temperature 97.16 [degF] DR RAEGAN CARDONA MD [facility] 09-08-2021 21:41-0400 Diastolic blood pressure 80 mm[Hg] DR RAEGAN CARDONA MD [facility] 09-08-2021 21:41-0400 Heart rate 77 /min DR RAEGAN CARDONA MD [facility] 09-08-2021 21:41-0400 Respiratory rate 18 /min DR RAEGAN CARDONA MD [facility] 09-08-2021 21:41-0400 Systolic blood pressure 133 mm[Hg] DR RAEGAN CARDONA MD [facility] 09-01-2021 22:42-0400 Diastolic blood pressure 57 mm[Hg] Denice Soto MD Work Phone: [facility] [employer] 09-01-2021 22:42-0400 Heart rate 73 /min Denice Soto MD Work Phone: [employer] 09-01-2021 22:42-0400 Respiratory rate 18 /min Denice Soto MD Work Phone: [employer] 09-01-2021 22:42-0400 SaO2% (BldA) [Mass fraction] 96 % Denice Soto MD Work Phone: [employer] 09-01-2021 22:42-0400 Systolic blood pressure 100 mm[Hg] Denice Soto MD Work Phone: [employer] 09-01-2021 15:22-0400 Body height 180.3 cm Denice Soto MD Work Phone: [employer] 09-01-2021 15:22-0400 Body mass index (BMI) [Ratio] 23.71 kg/m2 Denice Soto MD Work Phone: [employer] 09-01-2021 15:22-0400 Body temperature 98.2 [degF] Denice Soto MD Work Phone: [employer] 09-01-2021 15:22-0400 Body weight 77.11 kg Denice Soto MD Work Phone: [facility] 08-29-2021 00:30-0400 Body temperature 97.88 [degF] DR GILBERT FOSTER MD [facility] 08-29-2021 00:30-0400 Diastolic blood pressure 69 mm[Hg] DR GILBERT FOSTER MD [facility] 08-29-2021 00:30-0400 Heart rate 72 /min DR GILBERT FOSTER MD [facility] 08-29-2021 00:30-0400 Respiratory rate 16 /min DR GILBERT FOSTER MD [facility] 08-29-2021 00:30-0400 Systolic blood pressure 107 mm[Hg] DR GILBERT FOSTER MD [facility] 08-28-2021 20:09-0400 Body height 180.[address] GILBERT FOSTER MD [facility] 08-28-2021 20:09-0400 Body temperature 98.06 [degF] DR GILBERT FOSTER MD [facility] 08-28-2021 20:09-0400 Body weight 77.[address] GILBERT FOSTER MD [facility] 08-28-2021 20:09-0400 Diastolic blood pressure 87 mm[Hg] DR GILBERT FOSTER MD [facility] 08-28-2021 20:09-0400 Heart rate 88 /min DR GILBERT FOSTER MD [facility] 08-28-2021 20:09-0400 Respiratory rate 18 /min DR GILBERT FOSTER MD [facility] 08-28-2021 20:09-0400 Systolic blood pressure 128 mm[Hg] DR GILBERT FOSTER MD [facility] Encounters Encounter Date Encounter Type Care Provider Facility Start: 12-22-2024 End: 12-22-2024 Follow-up encounter Mayela REYNOLDS Work Phone: [facility] Comment on above: Results Start: 12-22-2024 End: 12-24-2024 Telephone encounter No Pcp (Hist) [facility] Comment on above: Results Start: 12-21-2024 End: 12-21-2024 Patient encounter procedure Rubia Hill LUNCH COOK.CREW LEADER/CONTROL ROOM OPERATOR Work Phone: [facility] Comment on above: URI, acute (Primary Dx); Exposure to COVID-19 virus; Viral illness; Encounter to obtain excuse from work Start: 12-21-2024 End: 12-21-2024 ambulatory RUBIA HILL Facility:[facility] Start: 08-25-2024 End: 08-25-2024 ambulatory Randee Florez [facility] Start: 08-25-2024 End: 08-25-2024 Follow-up encounter Randee Florez [facility] Comment on above: [facility] Hepatology - Fol low-up (HCV+ note) Start: 08-24-2024 End: 08-27-2024 ambulatory UNKNOWN PROVIDER Facility:[facility] Start: 08-24-2024 End: 08-27-2024 Subsequent hospital visit by physician [facility] Intake Provider Work Phone: [facility] Intake Comment on above: Inmate in correction al facility (Primary Dx); Attention deficit hyperactivity disorder (ADHD), unspecified ADHD type; Screening for tuberculosis; Encounter for Hemoccult screening Start: 08-28-2023 Emergency department patient visit [facility] Facility:[facility] Start: 08-22-2023 End: 08-23-2023 Emergency department patient visit STEPHY GLOVER [facility] Start: 08-22-2023 End: 08-22-2023 Subsequent hospital visit by physician [facility] Xr Portable [facility] Radiology Comment on above: Arrived Start: 08-22-2023 End: 08-22-2023 Emergency department patient visit Stephy Glover MD Work Phone: [facility] ED Comment on above: Chest pain, unspecif ied type (Primary Dx); Opiate use Start: 04-25-2023 End: 04-29-2023 Evaluation and management of inpatient CLARA JANE Facility:[facility] Start: 04-24-2023 Emergency department patient visit [facility] Facility:[facility] Start: 04-11-2023 End: 04-11-2023 Emergency department patient visit [facility] Facility:[facility] Start: 04-10-2023 Emergency department patient visit [facility] Facility:[facility] Start: 01-04-2023 Evaluation and management of inpatient EVA MUSA Facility:[facility] Start: 01-03-2023 Emergency department patient visit [facility] Facility:[facility] Start: 12-25-2022 Evaluation and management of inpatient HILLARY ETIENNE Facility:[facility] Start: 12-25-2022 Emergency department patient visit [facility] Facility:[facility] Start: 12-09-2022 Emergency department patient visit [facility] Facility:[facility] Start: 12-09-2022 Emergency department patient visit [facility] Facility:[facility] Start: 12-07-2022 Emergency department patient visit [facility] Facility:[facility] Start: 12-04-2022 Admission to establishment Brittany Watkins [facility] Start: 12-04-2022 End: 12-05-2022 ambulatory Brittany Watkins [facility] Intake Comment on above: Foreign Body Ingesti on Start: 12-04-2022 Emergency department patient visit MIKAL PURVIS Facility:[facility] Start: 10-08-2022 Emergency department patient visit SEA ACEVEDO III Facility:[facility] Start: 09-08-2021 End: 09-08-2021 Emergency department patient visit DR RAEGAN CARDONA MD [facility] Start: 09-01-2021 End: 09-02-2021 Emergency department patient visit DENICE SOTO [facility] Start: 09-01-2021 End: 09-01-2021 Emergency department patient visit Denice Soto MD Work Phone: [facility] Emergency Department Comment on above: Trismus (Primary Dx) ; Anxiety state Start: 08-28-2021 End: 08-29-2021 Emergency department patient visit DR GILBERT FOSTER MD [facility] Start: 08-22-2021 End: 08-22-2021 Subsequent hospital visit by physician Sea Acevedo III Work Phone: [facility] Comment on above: FALL/CANTON/RM4 Start: 08-10-2021 End: 08-10-2021 Subsequent hospital visit by physician Andreas Veronica DO Work Phone: [facility] Comment on above: Z13.818 Start: 07-27-2021 End: 07-27-2021 Subsequent hospital visit by physician [facility] Provider [facility] Comment on above: CLIENT BILL Procedures Date Procedure Procedure Detail Performing Clinician Start: 08-26-2024 Skin test tuberculos is intradermal Delmis Espinoza LUNCH COOK-CREW LEADER/CONTROL ROOM OPERATOR Work Phone: Start: 08-26-2024 Drug screen class list a Delmis Espinoza LUNCH COOK-CREW LEADER/CONTROL ROOM OPERATOR Work Phone: Start: 08-22-2023 Radiologic exam ches t single view Stephy Glover MD Work Phone: Start: 08-22-2023 Comprehensive metabo lic panel Stephy Glover MD Work Phone: Start: 08-22-2023 Ecg routine ecg w/le ast 12 lds trcg only w/o i&r Stephy Glover MD Work Phone: Start: 09-01-2021 CONSTANT OBSERVATION TO DD LISANING None (qualifier value) DR LYDIA FOSTER MD Plan of Treatment Date Care Activity Detail Author Start: 2050 RSV Immunization age d 60 or older (1 - 1-dose 60+ series) RSV Immunization aged 60 or older (1 - 1-dose 60+ series) [facility] Start: 2040 Shingles (RZV) Vacci ne (1 of 2) Shingles (RZV) Vaccine (1 of 2) [facility] Start: 2040 Zoster Vaccines (1 o f 2) Zoster Vaccines (1 of 2) [facility] Start: 12-04-2032 DTaP/Tdap/Td Vaccine s (2 - Td or Tdap) DTaP/Tdap/Td Vaccines (2 - Td or Tdap) [facility] Start: 12-04-2032 Tetanus vaccination Tetanus (T d or Tdap) Booster [facility] Start: 12-04-2032 Urine microalbumin profile [facility] Start: 12-27-2024 Influenza vaccination Influenza Vacc ine (#1) [facility] Start: 12-28-2023 Covid-19 Vaccine ( season) Covid-19 Vaccine ( season) [facility] Start: 12-28-2023 Influenza vaccination S [facility] Start: 12-27-2022 COVID-19 Vaccine ( season) COVID-19 Vaccine ( season) [facility] Start: 12-27-2022 Influenza vaccination INFLUENZA (#1) [facility] Start: 04-28-2022 DEPRESSION ASSESSMENT DEPRESSION ASS ESSMENT [facility] Start: 12-27-2021 Influenza vaccination C [facility] Start: 09-25-2021 COVID-19 VACCINE (3 - Booster for [place] series) COVID-19 VACCINE (3 - Booster for [place] series) [facility] Start: 2017 HPV Vaccine (1 - 3-d ose SCDM series) HPV Vaccine (1 - 3-dose SCDM series) [facility] Start: 2017 HPV Vaccine (optiona l start 27-45 years) HPV Vaccine (optional start 27-45 years) [facility] Start: 2009 DTaP/Tdap/Td vaccine (1 - Tdap) DTaP/Tdap/Td vaccine (1 - Tdap) [facility] Start: 2009 Hepatitis A (HAV) Vaccine (1 of 2 - Risk 2-dose series) Hepatitis A (HAV) Vaccine (1 of 2 - Risk 2-dose series) [facility] Start: 2009 Hepatitis A Vaccines (1 of 2 - Risk 2-dose series) Hepatitis A Vaccines (1 of 2 - Risk 2-dose series) [facility] Start: 2009 Hepatitis B vaccination Hepati tis B (HBV) Vaccine (1 of 3 - 19+ 3-dose series) [facility] Start: 2009 Hepatitis B Vaccines (1 of 3 - 19+ 3-dose series) Hepatitis B Vaccines (1 of 3 - 19+ 3-dose series) [facility] Start: 2009 Pneumococcal vaccination Pneumococcal Vaccine (1 of 2 - PCV) [facility] Start: 2009 Urine microalbumin profile DTAP,TDAP,TD (1 - Tdap) [facility] Start: 2008 HEPATITIS C SCREENING HEPATITIS C SC LISY [facility] Start: 2008 HIV SCREENING HIV SCREENING [facility] Start: 08-20-2003 Varicella vaccination Varicell a Vaccines (1 of 2 - 13+ 2-dose series) [facility] Start: 2002 Adult depression screening assessment DEPRESSION SCREENING [facility] Start: 08-20-1995 COVID-19 VACCINE (1) COVID-19 VACCIN E (1) [facility] Start: 08-20-1991 MMR Vaccines (1 of 1 - Standard series) MMR Vaccines (1 of 1 - Standard series) [facility] Start: 1990 HEPATITIS B (1 of 3 - 3-dose series) HEPATITIS B (1 of 3 - 3-dose series) [facility] Start: 1990 HIV screening HIV Screening [facility] Blood occult peroxid ase actv qual feces 1 deter OCCULT BLOOD, STOOL Lab Routine Encounter for Hemoccult screening When Specimen Available/Needed for 1 Occurrences starting 08/26/2024 [facility] Work Phone: Comment on above: When Specimen Availa ble/Needed for 1 Occurrences starting 08/26/2024 COVID & INFLUENZA A/ B & RSV PCR, ROUTINE COVID & INFLUENZA A/B & RSV PCR, ROUTINE Microbiology Routine URI, acute 12/21/2024 3:55 PM EDT [facility] STREP A MOLECULAR (POC) STREP A MOLECULAR (POC) Microbiology Routine URI, acute Ordered: 12/21/2024 [facility] Work Phone: Comment on above: Ordered: 12/21/2024 Immunizations Immunization Date Immunization Notes Care Provider Jana campos 08-24-2024 tuberculin skin test ; purified protein derivative solution, intradermal [facility] Provider Work Phone: [facility] 12-04-2022 tetanus toxoid, redu arnel diphtheria toxoid, and acellular pertussis vaccine, adsorbed Brittany Watkins [facility] 07-31-2021 [place] SARS-COV-2 (COVID-19) vaccine, vector non-replicating, recombinant spike protein-Ad26, preservative free, 0.5 mL (PWY=825) [facility] Provider Work Phone: [facility] 10-03-2020 [place] SARS-COV-2 (COVID-19) vaccine, vector non-replicating, recombinant spike protein-Ad26, preservative free, 0.5 mL (GTH=560) [facility] Provider Work Phone: [facility] Payers Date Payer Category Payer [facility] [id number] 2024 [employer] [id number] 2022 Medicaid [id number] 2022 Medicaid [id number] 2021 Unknown [id number] 2015 Medicaid [place] [employer] [place] [employer] [id number] 2015-Present [phone] [address] [place] [address] Medicaid [id number] 1990 Unknown [id number] 1990 Unknown [id number] Social History Date Type Detail Facility Start: 05-02-2015 End: 10-08-2022 Tobacco smoking status NHIS Ex-smoker [facility] Work Phone: Start: 05-02-2015 End: 08-29-2023 Cigarettes smoked current (pack per day) - Reported 1 [facility] Start: 05-02-2015 End: 09-01-2023 Tobacco use and exposure Former smokeless tobacco user [facility] Work Phone: Start: 05-02-2015 End: 12-04-2022 Alcohol intake Current drinker of alcohol (finding) [facility] Start: 11-05-2012 History SDOH Alcohol Comment occassional [facility] Start: 1990 Sex Assigned At Not on file [facility] Start: 08-28-2021 Tobacco smoking status Heavy t obacco smoker (finding) [facility] Sex Assigned At Sex [facility] Start: 09-01-2021 [facility] [employer] Work Phone: Start: 09-01-2021 Tobacco use and exposure Smokeless tobacco non-user [employer] Work Phone: Start: 09-01-2021 End: 12-21-2024 Alcohol intake Ex-drinker (finding) [employer] Work Phone: Start: 09-01-2021 History SDOH Alcohol Frequency 1 [employer] Phone: Start: 08-22-2021 End: 09-01-2021 Exposure to SARS-CoV-2 (event) Not sure [employer] Work Phone: History of tobacco use Current smoker [facility] History of tobacco use Cigarette Smoker C [facility] Start: 12-04-2022 End: 08-29-2023 Tobacco use panel [facility] How often to you hav e a drink containing alcohol? Never [facility] Start: 03-29-2012 How many standard drinks containing alcohol do you have on a typical day? Patient does not drink [facility] Start: 09-01-2023 Tobacco smoking stat [facility] Smokes tobacco daily [facility] History of tobacco use Chews Tobacco [facility] Tobacco smoking stat [facility] Tobacco smoking consumption unknown [facility] Start: 03-01-2012 Sex Male (finding) [facility] Functional Status Date Assessment Result Facility 09-01-2023 Are you deaf, or do you have serious difficulty hearing No 09/01/2023 10:15 AM Loki David, DEMARCO No [facility] 09-01-2023 Are you blind, or do you have serious difficulty seeing, even when wearing glasses No 09/01/2023 10:15 AM Loki David, DEMARCO No [facility] 09-01-2023 Do you have serious difficulty walking or climbing stairs No 09/01/2023 10:15 AM Lkoi David, DEMARCO No [facility] 09-01-2023 Do you have difficul ty dressing or bathing No 09/01/2023 10:15 AM EDT Loki Simpson RN No [facility] 09-01-2023 Because of a physica l, mental, or emotional condition, do you have difficulty doing errands alone such as visiting a physician's office or shopping No 09/01/2023 10:15 AM EDT Loki Simpson RN No [facility] 09-08-2021 Functional Status [facility] 08-29-2021 Functional Status [facility] 08-29-2021 Functional Status [facility] 08-29-2021 Functional Status [facility] 08-28-2021 [facility] Mental Status Date Assessment Result Facility 09-01-2023 Because of a physica l, mental, or emotional condition, do you have serious difficulty concentrating, remembering, or making decisions No 09/01/2023 10:15 AM EDT Loki Simpson RN No [facility] 09-08-2021 [facility]21 [facility] 08-28-2021 [facility] Clinical Notes 09-09-2021 to 12-22-2024 Telephone Encounter - Myrtle Gillespie APRN.CNP - 12/22/2024 8:40 AM EDTTelephone Encounter - Myrtle Gillespie APRN.CNP - 12/22/2024 8:40 AM Rubia Grant APRN.CNP - 12/21/2024 4:10 PM EDT Note Date & Type Note Facility 12-22-2024 Telephone encounter Note Note faxed per request Myrtle Gillespie APRN.CREW LEADER/CONTROL ROOM OPERATOR [facility] Work Phone: 12-22-2024 Miscellaneous Notes Note faxed per request Myrtle Gillespie APRN.CREW LEADER/CONTROL ROOM OPERATOR Girlfriend returns call and reports that patient needs a letter sent to his publicity person to notify he has tested positive for Covid as he has a court hearing this morning at 9 am that he needs to be present for and with Covid he can't. Fax number is [phone]. Girlfriend not listed on chart. Contact number for patient is [phone]. Tamar Suggs RN Please contact patient and let him know that COVID swab came back positive. He may return to work when he is 24 hours fever free and symptoms improved documented in this encounter [facility] 12-22-2024 Telephone encounter Note Girlfriend returns call and reports that patient needs a letter sent to his publicity person to notify he has tested positive for Covid as he has a court hearing this morning at 9 am that he needs to be present for and with Covid he can't. Fax number is [phone]. Girlfriend not listed on chart. Contact number for patient is [phone]. Tamar Suggs RN [facility] 12-22-2024 Telephone encounter Note Please contact patient and let him know that COVID swab came back positive. He may return to work when he is 24 hours fever free and symptoms improved [facility] Work Phone: 12-22-2024 Telephone encounter Note Patient calling to ask for test results from 12/21/24. (COPIED) Component Ref Range & Units 1 d ago (12/21/24) 1 yr ago (04/24/23) 1 yr ago (04/11/23) SARS-CoV-2 (Agent of COVID-19) RNA See comment Detected Abnormal Result given to patient. Patient has no further questions. States care advise was discussed at recent Urgent Care visit and he has had this virus before. States he may call back to ask for fax request at a later time. Liz Talamantes RN [facility] 12-22-2024 Miscellaneous Notes Patient calling to ask for test results from 12/21/24. (COPIED) Component Ref Range & Units 1 d ago (12/21/24) 1 yr ago (04/24/23) 1 yr ago (04/11/23) SARS-CoV-2 (Agent of COVID-19) RNA See comment Detected Abnormal Result given to patient. Patient has no further questions. States care advise was discussed at recent Urgent Care visit and he has had this virus before. States he may call back to ask for fax request at a later time. Liz Talamantes RN documented in this encounter [facility] 12-21-2024 Note HNO ID: [id number] Author: RUBIA HILL APRN.CREW LEADER/CONTROL ROOM OPERATOR Service: ? Author Type: Nurse Practitioner Type: Progress Notes Filed: 12/21/2024 16:23 Note Text: [facility] Subjective Keke Pemberton is a 34 year [...] tested positive. - Received the [employer] COVID-19 vaccine. 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 and Recording using [employer] software for draft documentation of the visit was discussed with the patient/authorized vendor representatives; all questions welcomed and answered. Patient/autho (more content not included)... [facility] 12-21-[facility]24 History of Present illness Narrative [facility] Aguilar Pemberton is a 34 year old male. [...] also tested positive. - Received the [employer] COVID-19 vaccine. - Denies emesis; reports [...] Objective BP 110/70 Pulse 86 Temp 36.7 C (98.1 F) (Tympanic) Resp 16 Wt 62.7 kg (138 lb 3.7 oz) SpO2 99% BMI 19.28 kg/m Physical Exam Vitals and nursing note reviewed. 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 and Recording using [employer] software for draft documentation of the visit was discussed with the patient/authorized vendor representatives; all questions welcomed and answered. Patient/authorized vendor representatives agreed to proceed MDM Procedures [1] Social History Tobacco Use Smoking status: Every Day Current packs/day: 0.50 Types: Cigarettes Smokeless tobacco: Former Types: Chew Vaping Use Vaping status: Never Used Substance Use Topics Alcohol use: Not Currently Comment: occassional Drug use: Yes Types: Marijuana Comment: Hx of IV documented in this encounter [facility] 12-21-2024 Note SARS-COV-2 (AGENT OF COVID-19) RNA: Detected INFLUENZA A RNA: Not detected INFLUENZA B RNA: Not detected RESPIRATORY SYNCYTIAL VIRUS (RSV) RNA: Not detected [facility] Comment on above: Performed By: #### 9 [id number] #### [facility] CLIA [id number] [address] [place] [address] [place] 08-26-2024 History of Present illness Narrative Nurse to pod to read PPD Reading of 0.0mm Results added in patients chart. Pt reports he had blood in his stool last 2 days. No other symptoms. Will pend occult blood. Nurse to pod to read PPD, patient is off the unit at court. Images from the original note were not included. 08/24/24 1613 Pain C/O Pain? No Numeric [...] History (past 6 months) 0 Incontinence, Bowel & Bladder 0 Urgency / Frequency 0 Medications [...] 34 year old male, is admitted to [facility]. This is the admission within the last 12 months. Patient/inmate is being seen today for 14 Day Health Assessment. Additional clinical concerns today: .Inmate is a&o x 3 able to make needs known. Inmate denies any pain or distress denies SI/HI . Inmate states that he has a hx of opioid use and that he had a script of Suboxone from the [facility] last took one a week ago his [...] 3-dose series) Never done COVID-19 Vaccine ( season) Never done HPV Vaccine (optional start 27-45 years) 2017 Shingles (RZV) Vaccine (1 of 2) 2040 Hepatitis C Antibody Completed HIV Test Completed Pneumococcal Vaccine(s) Aged Out Physical findings On 01/05/2009 the vital signs were as follows: pulse 72, blood pressure 124/74. Pulse 78 Temp 98 F (36.7 C) Resp 18 Ht 5' 11 (1.803 m) Wt 163 lb (73.9 kg) SpO2 99% BMI 22.73 kg/m Physical Exam No data to display No results found for this or any previous visit (from the past 30479 hours). BMP (last 3 years, up to [...] franklin education provided: Inmate educated on the [employer] system Admission problem list updated to reflect review and clinical findings Dot Lara RN [facility] Chart Review Lindsay Lundberg RN reviewed patient chart 08/24/2024 2:10 PM. ED/Observation/Admission last year? Yes. 08/28/2023 Foreign Body Ingestion Psych History/Suicidal Ideation? Yes. Bipolar, History swallowing razor blades and batteries, Anxiety Disorder ADHD Tox Screen 08/29/2023 Positive Cannabinoids, Opiates, Benzos Were they admitted IP for this? Yes Last 04/25/2023 Have they ever been incarcerated before at [facility]? No STI's/HIV Hx? Yes Hep C positive 04/25/2023 TB up to date? No List of current medications (dose and frequency): None on file Any referrals placed? Yes. Psych: Bipolar, history swallowing razor blades, batteries documented in this encounter [facility] 08-26-2024 Progress note Formatting of t his note might be different from the original. SW met with this patient following request by nursing. Patient presents as alert and oriented. Neat and clean. Linear and organized. No evidence of AVH or negative symptoms. Patient states he has pica and will eat razor blades if he gets too stressed out. Requesting a move to the MHU or a single cell. Also requesting MAT. Patient is future oriented and not in distress at this time. Appears to be attempting to manipulate his housing status. Addiction Medicine provider appointment is also in place. RICHELLE Keys MA, LICDC-CS [facility] 08-26-2024 Miscellaneous Notes EVAN met with this patient following request by nursing. Patient presents as alert and oriented. Neat and clean. Linear and organized. No evidence of AVH or negative symptoms. Patient states he has pica and will eat razor blades if he gets too stressed out. Requesting a move to the MHU or a single cell. Also requesting MAT. Patient is future oriented and not in distress at this time. Appears to be attempting to manipulate his housing status. Addiction Medicine provider appointment is also in place. RICHELLE Keys MA, LICDC-CS documented in this encounter [facility] 08-25-2024 History of Present illness Narrative Chart review reveals a recent lab test performed at [facility]. Unexpected results found as part of testing [...] the third one down under procedures (referral [id number]). I will get the referral once this order is signed and would manage your patient's HCV care including ordering labs, complying with insurance formulary, creating a treatment plan and following patient until final viral load (SVR12) so we can document cure. Randee Florez RPh documented in this encounter [facility] 08-25-2024 Note HNO ID: [id number] Author: RANDEE FLOREZ RPh Service: ? Author Type: Pharmacist Type: Progress Notes Filed: 08/25/2024 13:47 Note Text: Chart review reveals a recent lab test performed at [facility]. Unexpected results found as part of testing [...] the third one down under procedures (referral [id number]). I will get the referral once this order is signed and would manage your patient's HCV care including ordering labs, complying with insurance formulary, creating a treatment plan and following patient until final viral load (SVR12) so we can document cure. Randee Florez [facility] 09-01-2023 Note HNO ID: [id number] Author: NATY FERNANDO RN Service: Care Management Author Type: Registered Nurse Type: Care Mgt Progress Note Filed: 09/01/2023 15:08 Note Text: CARE MANAGEMENT DISCHARGE NOTE SERVICE DATE: September 01, 2023 SERVICE TIME: 3:07 PM Admission Date: 08/28/2023 LOS: 4 days Discharge Arrangement Discharge Arrangement: [facility] Provider Name: N/A, no PCP noted Caregiver Assessment Caregiver is ready, willing and able to meet the patient's needs as recommended by the inter-professional team: No Caregiver needed Transportation Arrangements Transportation Arrangements: Other: See Comment (Histopath Tech to arrange transport) Handoff Communication: Handoff to: Primary Care Physician Primary Care Physician Name/Phone: N/A, none listed Additional Information: Plan for pt to return to retirement. at bedside. [employer] to arrange transportation, nothing needed from . SIGNATURE: Naty Fernando RN, BSN PATIENT NAME: Keke Pemberton DATE: September 01, 2023 TIME: 3:07 PM CONTACT #: [phone] [facility] 09-01-2023 Note HNO ID: [id number] Author: GABRIELLA AHUJA RN Service: Nursing Author Type: Registered Nurse Type: Nursing Progress Note Filed: 09/01/2023 14:07 Note Text: Pt accompanied by [place] on arrival to pacu [facility] 09-01-2023 Note HNO ID: [id number] Author: JENNA BURGOS APRN.CRNA Service: Anesthesiology Author Type: Nurse Visually Impaired Teacher Type: Anesthesia Procedure Notes Filed: 09/01/2023 13:21 Note Text: ANESTHESIOLOGY PROCEDURE NOTE Airway General Information Procedure Start Time/Medication Administration: 09/01/2023 1:06 PM Procedure End Time: 09/01/2023 1:07 PM Patient location during procedure: OR Timeout Performed Pre-procedure: timeout performed Consent Obtained: Yes Patient identity confirmed: arm band and patient Staffing Anesthesiologist: Gordo Bazan MD SUPERVISING FLOORPERSON: Jenna Burgos APRN.SUPERVISING FLOORPERSON Performed by: SUPERVISING FLOORPERSON Indications and Patient Condition Indications for airway management: anesthesia Preoxygenated: yes anesthesia circuit Patient position: sniffing Method: rapid sequence Cricoid Pressure: Yes Final Airway Details Final airway type: endotracheal airway Final Endotracheal Airway: ETT Cuffed: yes Successful intubation technique: video laryngoscopy Devices used: Card and intubating stylet Endotracheal tube insertion site: oral Blade: Argelia Blade size: #4 ETT size (mm): 7.5 Measured from: lips Measurement (cm): 22 Placement verified by: chest auscultation and capnometry Cormack-Lehane Classification: grade I - full view of glottis Number of attempts at approach: 1 SIGNATURE: Jenna Burgos APRN.SUPERVISING FLOORPERSON PATIENT NAME: Keke Pemberton DATE: September 01, 2023 TIME: 1:20 PM CSN: [id number] [facility] 09-01-2023 Note HNO ID: [id number] Author: LUKE SILVA RN Service: Nursing Author Type: Registered Nurse Type: Nursing Progress Note Filed: 09/01/2023 12:53 Note Text: Sitter and conservation officer at bedside, patient handcuffed to bed all extremitiies [facility] 09-01-2023 Note HNO ID: [id number] Author: KORI EPSTEIN APRN.CREW LEADER/CONTROL ROOM OPERATOR Service: Neurology General Author Type: Nurse Practitioner Type: Plan of Care Filed: 09/01/2023 11:28 Note Text: NEUROLOGY CONSULT PLAN OF CARE NOTE SERVICE DATE: September 01, 2023 SERVICE TIME: 11:26 AM Chart reviewed. No seizures noted on cBEM, no need to continue Keppra - will discontinue. Plan for patient to follow with epilepsy outpatient for formal eval, appt requested. No further inpatient work up from neurology. Neurology service signing off at this time. Please call with any questions or concerns. Kori Epstein APRN.CNP Nurse Practitioner, Neurocritical Care Pager: [phone] September 01, 2023 11:26 AM [facility] 09-01-2023 Note HNO ID: [id number] Author: RACHEL MARCIAL CPhT Service: Pharmacy Author Type: Principal Systems Engineer Type: Plan of Care Filed: 09/01/2023 10:04 Note Text: PHARMACY BEDSIDE DELIVERY SERVICE Patient Name: Keke Pemberton The marked outpatient medications were Filled at: [facility] and delivered to the patient's bedside to [place] [phone] as pt being dc to retirement Medication List START taking these medications levETIRAcetam 750 mg tablet Commonly known as: KEPPRA Take 1 tablet by mouth two times a day. Rachel Marcial CPhT PAGER: Rachel Marcial [phone] 09/01/23 10:04 AM September 01, 2023 10:03 AM [facility] 08-31-2023 Note HNO ID: [id number] Author: MALCOLM MICHAEL MD Service: Hospital Medicine Author Type: Physician Type: Progress Notes Filed: 08/31/2023 09:50 Note Text: DEPARTMENT OF HOSPITAL MEDICINE PROGRESS NOTE SERVICE DATE: 08/31/2023 SERVICE TIME: 9:46 AM Hospital Medicine/Primary Attending: Malcolm Michael MD NIGHT AND WEEKEND COVERAGE: After 7pm please page [phone] SUBJECTIVE: Follow up for Foreign Body Ingestion. No new issues. OBJECTIVE: PHYSICAL EXAM: BP 110/71 Pulse 116 Temp (Src) 98.8 (Oral) Resp 18 Ht 5' 11 (1.80m) Wt 147 lb 4.3 oz (66.8kg) SpO2 98% BMI 20.55 kg/(m2). O2 Therapy: Room Air General - AANDOx3, NAD, Calm Skin- No new lesions ENT- no icterus Neuro- No dysarthria MEDICATIONS: Current Facility-Administered Medications Medication Dose Route Frequency NaCl 0.9% iv flush bag 20 mL INTRAVENOUS PRN ondansetron (PF) 4 mg injection (ZOFRAN) 4 mg INTRAVENOUS q 6 H PRN QUEtiapine 100 mg tab(s) (SEROquel) 100 mg ORAL AT BEDTIME nicotine 14 mg/24 hr 1 Patch (NICODERM) 1 Patch TRANSDERMAL DAILY And nicotine -- REMOVE patch OTHER AT BEDTIME And nicotine - verify patch OTHER q 8 H levETIRAcetam 750 mg tab(s) (KEPPRA) 750 mg ORAL BID LORazepam 0.5 mg injection (ATIVAN) 0.5 mg INTRAVENOUS q 6 H PRN haloperidol lactate 5 mg short-acting injection (HALDOL) 5 mg INTRAVENOUS q 4 H PRN hydrOXYzine HCl 25 mg tab(s) (ATARAX) 25 mg ORAL q 6 H PRN nicotine polacrilex 2 mg gum (NICORETTE) 2 mg ORAL q 2 H PRN DATA: Diagnostic tests reviewed for today's visit: CBC: No results for input(s): WBC, RBC, HB, HCT, PLT, MCV, MCH, MPV, RDW in the last 24 hours. Coags: No results for input(s): PT, INR, APTT in the last 24 hours. BMP: No results for input(s): NA, K, CHLOR, CO2, BUN, CREAT, GLUC in the last 24 hours. CMP: No results for input(s): NA, K, CHLOR, CO2, BUN, CREAT, GLUC, TPROT, CA, MG, ALBUMIN, TBILI, ALKPHOS, ALT, AST, ANION in the last 24 hours. Cardiac Enzymes: No results for input(s): CK, MB, CKMB, TROPT in the last 24 hours. Liver Function, Amylase, Lipase: No results for input(s): TPROT, ALB, ALT, AST, ALKPHOS, TBILI, AMYLASE, LIPASE, LACTATE in the last 24 hours. MG/PHOS: No results for input(s): MG, P in the last 24 hours. Renal Panel: No results for input(s): ALBUMIN, CREAT, BUN, GLUC, CA, P, CHLOR, K, CO2, NA in the last 24 hours. Heme: No results for input(s): RETICP, ABSRETIC, LD, CLAUDIA, FE, TIBC,TRANSFERSAT in the last 24 hours. No results found for: UALBCR Active Hospital Problems Diagnosis Date Noted POA Foreign body ingestion, initial encounter 08/28/2023 Yes Seizure (HCC) 08/29/2023 Yes Mood disorder (HCC) 08/28/2023 Unknown Opioid dependence with opioid-induced disorder (HCC) 08/28/2023 Unknown Marijuana use 08/28/2023 Unknown Current smoker 04/25/2023 Yes Resolved Hospital Problems No resolved problems to display. Assessment/Plan I have personally reviewed today's labs, imaging, and vitals Assessment: -seizure activity -drug abuse -foreign body ingestion Plan/Follow Up: -Neuro and Psych recommendations -cEEG resulted, continue keppra - Razor blades removed during EGD -long-term psychiatric medications, await psych eval - Will discharge to [facility] VTE Prophylaxis: As per primary team Disposition: To be determined Plan of care discussed with: Provider, RN, Patient SIGNATURE: Malcolm Michael MD PATIENT NAME: Keke Pemberton DATE: August 31, 2023 TIME: 9:46 AM PAGER/CONTACT #: My Pager. Page [phone] after 7PM, as my pager is off. [facility] 08-30-2023 Note HNO ID: [id number] Author: DOMO PRUETT DO Service: Critical Care Author Type: Resident Type: Plan of Care Filed: 08/30/2023 15:12 Note Text: When patient is ready to be discharged back to retirement, please get in touch with Jenny from [facility] at [phone] to arrange outpatient medication. Domo Pruett DO PGY-1 CCAG ED Resident [facility] 08-30-2023 Note HNO ID: [id number] Author: NOREEN APDRON MD Service: Neurology ICU Author Type: Physician Type: Progress Notes Filed: 08/30/2023 13:18 Note Text: SERVICE DATE: 08/30/2023 SERVICE TIME: 1:17 PM NEURO ICU PROGRESS NOTE DATE OF ADMISSION: 08/28/2023 Subjective Hospital Course: 08/28: S/S suspicious for seizure - KEessencera started , adding MRI prior to discharge Events Since Last Note: None Seizure precautions education given to patient Objective BP 112/85 Pulse 77 Temp 37.1 ?C (98.8 ?F) (Oral) Resp 21 Ht 180.3 cm (5' 11) Wt 66.8 kg (147 lb 4.3 oz) SpO2 97% BMI 20.54 kg/m? Weight change: 3.297 kg (7 lb 4.3 oz) NEUROLOGICAL: GCS: Eyes: 3: To Speech Verbal: 5: Oriented Motor: 6: Obeys Motor commands Total: 14 Pt resting in bed. penal officer and RN at bedside pt is in hand cuffs and belly chain. Oriented to person and place states as July Speech clear No facial asym FROST x4 no focal weakness Skin/Extremities: Edema- No Peripheral pulses- Present all extremities Wounds/Drsgs- No Breakdown- No Diagnostic tests reviewed for today's visit: Most recent labs and imaging results. Lines, Drains, and Airways None ICU Checklist Last Documented/Reviewed time: 08/30/2023 12:32 PM ICU Consent Complete?: Yes A= Assess, Prevent, Manage Pain Pain adequately controlled?: Yes C= Choice of Sedation and Analgesia RASS at Goal?: Yes B= Both Spontaneous Awakening and Breathing Trials Ventilator: None D= Delirium: Assess, Prevent and Manage ICU Delirium Status: CAM Negative - no action required Sleep adequate?: Yes Restraint Status: None E= Early Mobility/Excercise ICU Mobility: ICU Mobility-Pt Has Been Out of Bed: PT Consult - Specify F= Family Engagement and Empowerment ICU plan of care visit at bedside in last 24 hours: Yes, Provider, RN, Patient/ designee ICU Disposition: ICU Disposition- Is Patient Clinically Ready to Transfer to RNF or SDU?: Yes, transfer to SDU or RNF today Discharge Planning: Other - Specify Prevention: Line Status: None Drew Status: None Pressure Injury Status: None GI/Stress Ulcer Prophylaxis: None - not required Nutrition is at Goal: Advancing to goal VTE Prophylaxis: Chemoprophylaxis: Heparin SQ PERSONAL INVOLVEMENT IN CARE: Reviewing initiation, responses and adjustments to therapies, coordination of care, and updating family and ICU team with Plan of care Assessment AND Plan 33 yo M w/ psychiatric history of mood disorder, cluster B personality traits, ADHD, polysubstance abuse who presents after swallowing a razor blade in retirement. Per chart review- pt has had multiple hospitalizations for swallowing foreign objects in order to get out of retirement, in the ED pt denied SI stating that he did it to get attention so he could receive psychiatric medications. UDS positive for benzodiazepines, cannabis, opiates. Neurology was consulted for possible seizure. Per chart pt was lying on the floor rocking back and forth kicking his legs. No reported tongue biting. No postictal period. Per chart, pt admitted to using 1g of fentanyl daily. Pt requesting medication for detox during my encounter. It is not likely that the pt is using 1g of Fentanyl daily as this would be equal to 1,000,000mcg of fentanyl. Active Hospital Problems as of 08/30/2023 Noted - Resolved [facility] Hospital Seizure-like activity (HCC) 08/29/2023 - Present Yes Current Assessment AND Plan S.s and semiology concerning for seizure Keppra 750 mhg BID MRI prior to discharge cEEG monitoring for 24 hrs and can be DC if negative Neurology to follow Seizure Restrictions NO Driving ftill further evaluation by neurologist as out patient NO Operating heavy machinery NO Working at height, on ladders, or step stools NO Swimming or tub baths unsupervised NO Cooking on front burner on the stove unsupervised Opioid dependence with opioid-induced disorder (HCC) 08/28/2023 - Present Unknown Mood disorder (HCC) 08/28/2023 - Present Unknown Marijuana use 08/28/2023 - Present Unknown * (Principal) Foreign body ingestion, initial encounter 08/28/2023 - Present Yes Current smoker 04/25/2023 - Present Yes Medication and Non-Pharmacologic VTE Prophylaxis/Anticoagulants Anticoagulant AND Antiplatelet Medications (From admission, onward) Start Dose Route Frequency Last Action Ordered Stop 08/29/23 1000 enoxaparin 40 mg injection (LOVENOX) (enoxaparin injection (LOVENOX)) 40 mg SUBCUTANEOUS EVERY 24 HOURS Given, 08/29 84508/29/23 0954 -- 08/28/231914 vte pharmacologic prophylaxis contraindicated ([place]) 08/28/231914 pneumatic compression stockings ([place], [place]) 08/28/231914 activity - mobilize patient ([place], [place]) VTE Prophylaxis: VTE prophylaxis appropriate Plan of care discussed with: Provider, RN, Patient and ICU Team STAFF COORDI (more content not included)... [facility] 08-30-2023 Note HNO ID: [id number] Author: KASSY REYES MD Service: Critical Care Author Type: Physician Type: Progress Notes Filed: 08/30/2023 13:25 Note Text: [facility] STAFF PHYSICIAN NOTE OF PERSONAL INVOLVEMENT IN CARE I have reviewed the progress note obtained and documented by the resident and I personally participated in the franklin components. I have discussed the case and management of the patient's care. The following comments revise or confirm relevant franklin components of the note. Personally reviewed all pertinent data including labs, cultures, and imaging. BP 110/78 Pulse 108 Temp 37.1 ?C (98.8 ?F) (Oral) Resp 25 Ht 180.3 cm (5' 11) Wt 66.8 kg (147 lb 4.3 oz) SpO2 97% BMI 20.54 kg/m? Vent Settings: O2 Therapy: Room Air (08/30/23 0843) Invasive Ventilator Mode (Select One): A/C PRVC or VC+ or APVcmv (PC-CMVa) (08/28/232137) Set Ventilator Respiratory Rate (BPM): 16 (08/28/232137) Invasive Ventilator Total Respiratory Rate (BPM): 24 (08/28/232137) Invasive Ventilator Tidal Volume Set (mL): 450 (08/28/232137) Exhaled Tidal Volume (mL): 470 (08/28/232137) Minute Volume (L/min): 7.9 (08/28/232137) Peak Inspiratory Pressure (cm H2O): 11 (08/28/232137) PEEP/CPAP (cm H2O): 5 (08/28/232137) I/Os: Intake/Output Summary (Last 24 hours) at 08/30/2023 1325 Last data filed at 08/30/2023 0843 Gross per 24 hour Intake 220 ml Output 1025 ml Net -805 ml Recent Labs 08/30/23 0521 08/29/23 1512 08/29/23 1227 08/29/23 0526 08/28/23 1845 WBC 10.28 12.86* -- 13.72* 10.96 HB 15.9 16.2 -- 15.3 15.6 HCT 46.7 47.0 -- 44.6 46.5 PLT 246 317 -- 272 274 NA 139 136 -- 138 140 K 4.1 3.4* -- 3.7 3.7 CHLOR 105 97 -- 103 106* CO2 24 18* -- 24 22 CREAT 0.76 0.81 -- 0.80 0.70* BUN 10 10 -- 16 13 GLUC 92 207* -- 97 105* TPROT -- 7.3 -- -- 7.0 ALB -- 4.5 -- -- 4.4 MG -- 2.3 2.3 -- -- CA 9.2 9.2 -- 8.9 9.1 ALKPHOS -- 93 -- -- 90 TBILI -- 0.7 -- -- 0.5 AST -- 36 -- -- 39 ALT -- 36 -- -- 36 MICRO: Staph PCR: Negative IMAGING: Repeat CT Brain 08/28 (After 2nd fall) IMPRESSION: No evidence of acute intracranial process Repeat CT cervical Spine 08/28 (After 2nd fall) IMPRESSION: No evidence of acute cervical spine fracture Anatomic Variant: None. Assume 7 cervical vertebrae with counting from the craniocervical junction. CT Brain 08/28 IMPRESSION: No CT evidence of acute abnormalities of the cervical spine Mild foraminal stenosis at C5-6 level due to uncovertebral hypertrophy CT brain 08/28 IMPRESSION: Unremarkable nonenhanced brain CT. No acute intracranial abnormalities AXR 08/27 IMPRESSION: Indeterminate radiopaque foreign body in the left upper quadrant, possibly in the stomach. Correlate clinically. CXR 08/27 IMPRESSION: Lines, tubes, and devices: Interval placement of endotracheal tube with the tip approximately 2 cm above the level of the franco. Lungs and pleura: No consolidation. No pneumothorax. No visualized pleural effusion. Cardiomediastinal silhouette: Within normal limits and stable. Other: No radiopaque foreign body identified. cEEG 08/29 Impression: This EEG is within normal limits. No epileptiform discharges or EEG seizures were seen during this recording. PROCEDURE: EGD 08/27 Impression: - Normal esophagus. - Razor blade wrapped in clothe and plastic wrap were found in the stomach. Removal was successful. - Normal examined duodenum. IMPRESSION: Myoclonic jerking/Seizures - True epilepsy/seizure vs pseudoseizure activity? Foreign body ingestion - 2 razor blades, at risk for perforation - previous history of the same; reports wanting to be taken to hospital to get psych meds which he was not receiving at facility Mood disorder - off of meds for the past week Current smoker Marijuana use, opiate dependence - on suboxone Inhospital fall/trauma PLAN: - Patient with recurrent seizure-like activity. Discussed with neuro today, agree with initiation of keppra BID given concerns this may be true epileptic activity. Etiology behind this unclear. - Continue with cEEG - Will need brain MRI prior to discharge - Imaging negative for any trauma to cervical spine/head - Seizure precautions - prn ativan - OK for po diet - Appreciate ongoing recs from neurology - Patient s/p EGD with removal of razor blades/foreign bodies - Psych consultation appreciated. Though will hold wellbutrin given concerns for seizures - Lovenox - Transfer to floor/EMU Some documentation from the previous visit dated August 29, 2023 was copied and pasted. This has been been reviewed and edited as necessary for today's visit. ICU Checklist Last Documented/Reviewed time: 08/30/2023 12:32 PM ICU Consent Complete?: Yes A= Assess, Prevent, Manage Pain Pain adequately controlled?: Yes C= Choice of Sedation and (more content not included)... [facility] 08-30-2023 Note HNO ID: [id number] Author: KASSY REYES MD Service: Critical Care Author Type: Physician Type: Progress Notes Filed: 08/30/2023 13:18 Note Text: MICU PROGRESS NOTE PATIENT NAME: Keke Pemberton REASON FOR ADMISSION: Swallowed 2 Razor Blades LOS: 2 Subjective HPI Mr. Keke Pemberton is a 33 year old male with PMH: - Bipolar disorder on bupropion, carbamazepine (no recent documented fills) - ADHD - Anxiety disorder - History of swallowed foreign bodies - Tobacco use Patient presented to [facility] from [facility] on 08/28/2023 with complaints of foreign body ingestion. Patient states that he has been incarcerated for the last week in the [facility] and has not had access to psych medications. He states that he intentionally ingested two razors today with the intent of getting attention so that he could get his psych medications. He endorses moderate sharp abdominal pain across his lower abdomen. Endorses multiple episodes of nonbloody loose stools this AM. Denies nausea, chest pain, difficulty swallowing, sore throat, headaches, vision changes, rashes wounds. He states he follows with psych in [place], [place]. Of note, there are no recent fills of bupropion or carbamazepine in the chart. He is a current smoker. Denies other substance use today. Upon arrival to the ED, patient noted to be HDS. ED workup was significant for CXR and KUB demonstrating foreign body in the fundus of the stomach. GI on-call contacted by ED - plans for emergent endoscopy tonight. INTERVAL EVENTS This morning, patient is alert and oriented. Requesting medication for detox and anxiety. Requests subutex or ultram. Patient informed we do not start these medications in the ICU. Patient requested diet, education provided on reasoning for NPO status. Assurance given that we are monitoring status through conveyor monitor, pulse ox, EEG, and morning labs. Patient confirmed he was using 1 g fentanyl daily, said it is a couple hundred dollars worth daily. Denies any other substance use. Pertinent results include: CPK: 739 Lactate: 8.3 CBC and CMP: wnl CT brain and C Spine: no evidence of acute intracranial process, no fracture or dislocation 20 min EEG: no epiliform discharges Consultation updates, all recs are appreciated: Psych Neuro Objective OBJECTIVE BP 112/85 Pulse 77 Temp 37.1 ?C (98.8 ?F) (Oral) Resp 21 Ht 180.3 cm (5' 11) Wt 66.8 kg (147 lb 4.3 oz) SpO2 97% BMI 20.54 kg/m? Temp (24hrs), Av.2 ?C (99 ?F), Min:37.1 ?C (98.8 ?F), Max:37.4 ?C (99.3 ?F) Body mass index is 20.54 kg/m?., Hemoglobin A1C (%) Date Value 04/25/2023 5.1 Intake/Output Summary (Last 24 hours) at 08/30/2023 1143 Last data filed at 08/30/2023 0843 Gross per 24 hour Intake 870 ml Output 1675 ml Net -805 ml LABORATORY: BLOOD GAS: CBC: Recent Labs 08/30/23 0521 08/29/23 1512 08/29/23 0526 08/28/23 1845 WBC 10.28 12.86* 13.72* 10.96 HB 15.9 16.2 15.3 15.6 HCT 46.7 47.0 44.6 46.5 PLT 246 317 272 274 MCV 87.6 88.2 88.0 88.6 RDWCV 13.3 12.9 13.5 12.9 COAG: No results for input(s): APTT, INR in the last 168 hours. CMP: Recent Labs 08/30/23 0521 08/29/23 1512 08/29/23 1227 08/29/23 0526 08/28/23 1845 GLUC 92 207* -- 97 105* NA 139 136 -- 138 140 K 4.1 3.4* -- 3.7 3.7 CHLOR 105 97 -- 103 106* CO2 24 18* -- 24 22 ANION 10 21* -- 11 12 BUN 10 10 -- 16 13 CREAT 0.76 0.81 -- 0.80 0.70* ALB -- 4.5 -- -- 4.4 TBILI -- 0.7 -- -- 0.5 ALKPHOS -- 93 -- -- 90 AST -- 36 -- -- 39 ALT -- 36 -- -- 36 TPROT -- 7.3 -- -- 7.0 MG -- 2.3 2.3 -- -- URINALYSIS: Recent Labs 08/29/23 1152 SPGR 1.006 UGLUC Negative UBILI Negative UKET Negative UHB Negative UPROT Negative UWBC 0-5 /HPF Cardiac:No results for input(s): CKTEST, CKMB, CKMBP, TROPONIN, BNP in the last 168 hours. Microbiology: Positive Micro-30 Days No results found for the last 720 hours. No results found for: LVEF Physical Exam Constitutional: Appearance: Normal appearance. HENT: Head: Normocephalic. Eyes: Extraocular Movements: Extraocular movements intact. Pupils: Pupils are equal, round, and reactive to light. Cardiovascular: Rate and Rhythm: Normal rate and regular rhythm. Pulmonary: Effort: Pulmonary effort is normal. Abdominal: General: Abdomen is flat. There is no distension. Palpations: Abdomen is soft. Musculoskeletal: General: Normal range of motion. Cervical back: Normal range of motion and neck supple. No rigidity or tenderness. Skin: General: Skin is warm and dry. Neurological: General: No focal deficit present. Mental Status: He is alert and oriented to person, place, and time. Mental status is at baseline. Psychiatric: Mood and Affect: Mood normal. CURRENT MEDICATIONS: IV infusions: Scheduled medications:[START ON 08/31/2023] nicotine, 1 Patch, DAILY And nicotine -- REMOVE patch, , AT BEDTIME (more content not included)... [facility] 08-29-2023 Note HNO ID: [id number] Author: DOMO PRUETT DO Service: Critical Care Author Type: Resident Type: Plan of Care Filed: 08/29/2023 15:47 Note Text: I was called to bedside for reports of the patient actively having seizure like activity. When I arrived to room, patient was lying on floor, rocking back and forth with legs kicking back and forth. Patient was unresponsive, face red, with dilated pupils and stool on floor. A pillow was placed beneath his head. Patient had pulse throughout the entire episode which lasted about a minute. When patient stopped moving, he looked around as it afraid. He was able to tell me year, place, and name. He did not remember the episode. No medications or compressions were administered. The patient was moved back to bed without difficulty. Neck collar in place. POC glucose was 180. Patient admitted to using 1 g fentanyl daily before becoming incarcerated. Seizure precautions in place. cEEG ordered. Neuro consulted. CPK, BMP, lactate, VBG ordered. No significant rise in WBC. Welbutrin was resumed by psychiatry this morning however the patient did not receive this medication yet. This medication was discontinued. CT head and neck ordered. Domo Pruett DO PGY-1 CCAG ED Resident [facility] 08-29-2023 Note HNO ID: [id number] Author: SHANITA PINA RPh Service: Pharmacy Author Type: Pharmacist Type: Plan of Care Filed: 09/01/2023 11:00 Note Text: PHARMACY MEDICATION REVIEW Patient Name: Keke Pemberton : 1990 The following medications were updated within the TOASTER OPERATOR medication list: Medications ADDED to TOASTER OPERATOR medication list Medications CHANGED on TOASTER OPERATOR medication list Medications REMOVED from TOASTER OPERATOR medication list buprenorphine-naloxone (SUBOXONE) 8-2 mg film Auto buPROPion XL (WELLBUTRIN XL) 150 mg 24 hr tablet Auto carBAMazepine (TEGRETOL) 200 [address] Auto pantop[address]ole DR (PROTONIX) 40 mg tablet Auto naloxone 4 mg/actuation nasal spray (NARCAN) Course of therapy completed Additional comments: Verified medication information with e-scripts/dispense report, [facility] and chart review. Confirmed medications with patient. Called Pharmacy to confirm medications. Patient stated no longer taking Suboxone, Wellbutrin, Tegretol, Protonix, and Narcan - removed from med list. Patient stated taking Wellbutrin and Seroquel - called [facility] not filled at pharmacy. Found patient is talking about what he is getting as inpatient. Required follow up actions for nursing: None The below information represents the best possible medication history: Yes Medication history completed by: Instant Potato Processing Supervisor: Stacey Webster (Engraver Seals) Source of history: Patient: Reliability of source: Appears reliable, clearly identified: Indications, Pharmacy records: e-scripts/dispense report, [employer] [phone], and [facility] records Medication nonadherence identified: No barriers noted Reconciliation completed: Yes Completed by: Shanita Pina PharmD, [facility] Nursing Unit Based Pharmacist Ext: [phone] All TOASTER OPERATOR medications addressed by LIP Patient interested in Bedside Delivery Services or using OP Pharmacy at discharge? Unable to assess Preferred outpatient pharmacy: [id number] [place] [address] - [address] [facility] [phone] [facility] Allergies: No Known Allergies None Stacey Eleanor (Engraver Seals)[id number] 08/29/2023 I have reviewed and agree with the medication history note completed by the medication historian as documented above. All medications reviewed and reconciled appropriately. Shanita White PharmD, [facility] Nursing Unit Based Pharmacist Ext: [phone] [facility] 08-29-2023 Note HNO ID: [id number] Author: RAJNI MULLER RN Service: Care Management Author Type: Registered Nurse Type: Care Mgt Progress Note Filed: 08/29/2023 10:06 Note Text: CARE MANAGEMENT PROGRESS NOTE SERVICE DATE: 08/29/2023 SERVICE TIME: 9:59 AM LOS: 1 day Pt from [facility]. Pt bond underwriter supervision and handcuffed to bed. DC plan to return to retirement today. Defer assessment d/t rec of Histopath Tech to not discuss DC planning as it causes pt to act out to behave in ways to avoid returning to retirement. SIGNATURE: Rajni Muller RN PATIENT NAME: Keke Pemberton DATE: August 29, 2023 TIME: 9:59 AM PAGER/CONTACT #: [phone] [facility] 08-29-2023 Note HNO ID: [id number] Author: DOMO PRUETT DO Service: Critical Care Author Type: Resident Type: Plan of Care Filed: 08/29/2023 09:22 Note Text: I was called to bedside for witnessed seizure activity. Patient was lying face up on the floor without noticeable seizure activity when I arrived to room. Patient was easily arousable with sternal rub and was alert and oriented to time, place, person. Denies pain anywhere in the body. Denied biting tongue and tongue is without lacerations. Urine found on the floor, it is noted that patient was using bedside commode during event. I was unable to elevate arm over face to evaluate for self-protecting measures during event as the patient is in handcuffs. When asking the patient what happened, he reports that he thinks he has a seizure. POC glucose was 136. Patient remained vitally stable throughout event. No compressions or medications were administered. C collar placed and patient was moved to bed with backboard without complications. Events leading up to response: Patient was using bedside commode for a bowel movement. Patient reported to nurse that he needed more time and requested that she would look the other way while he was using bedside commode. When she looked back he was falling face forward to the ground. She was unable to catch him during this event. She witnessed arms and legs shaking bilaterally for about 40 seconds. Did not observe face during this episode. Patient did not appear post-ictal after event. CT head and neck, lactate, VBG ordered post event. Domo Pruett DO PGY-1 CCAG ED Resident [facility] 08-29-2023 Note HNO ID: [id number] Author: KASSY REYES MD Service: Critical Care Author Type: Physician Type: Progress Notes Filed: 08/29/2023 15:58 Note Text: [facility] STAFF PHYSICIAN NOTE OF PERSONAL INVOLVEMENT IN CARE I have reviewed the progress note obtained and documented by the resident and I personally participated in the franklin components. I have discussed the case and management of the patient's care. The following comments revise or confirm relevant franklin components of the note. Subjective: This AM patient fell off commode followed by witnessed convulsive activity, though no loss of urine, BMS, loss of consciousness, or post-ictal behavior. Concerns by staff that this was more intentional behavior suspicious for pseudoseizure behavior. 3:00 PM: Called to bedside again when patient got up from bed (stood after sleeping per conservation officer in room) and fell to floor with convulsive b/l myoclonic jerking. This time patient unresponsive with +++ loss of bowels (BM on floors). Some postictal behavior after second event. Personally reviewed all pertinent data including labs, cultures, and imaging. BP 130/72 Pulse (!) 124 Temp 37.2 ?C (99 ?F) (Oral) Resp 28 Ht 180.3 cm (5' 11) Wt 61.1 kg (134 lb 11.2 oz) SpO2 100% BMI 18.79 kg/m? Vent Settings: O2 Therapy: Room Air (08/29/23 1500) Invasive Ventilator Mode (Select One): A/C PRVC or VC+ or APVcmv (PC-CMVa) (08/28/232137) Set Ventilator Respiratory Rate (BPM): 16 (08/28/232137) Invasive Ventilator Total Respiratory Rate (BPM): 24 (08/28/232137) Invasive Ventilator Tidal Volume Set (mL): 450 (08/28/232137) Exhaled Tidal Volume (mL): 470 (08/28/232137) Minute Volume (L/min): 7.9 (08/28/232137) Peak Inspiratory Pressure (cm H2O): 11 (08/28/232137) PEEP/CPAP (cm H2O): 5 (08/28/232137) I/Os: Intake/Output Summary (Last 24 hours) at 08/29/2023 1558 Last data filed at 08/29/2023 0909 Gross per 24 hour Intake 1556.2 ml Output 575 ml Net 981.2 ml Recent Labs 08/29/23 1512 08/29/23 1227 08/29/23 0526 08/28/23 1845 WBC 12.86* -- 13.72* 10.96 HB 16.2 -- 15.3 15.6 HCT 47.0 -- 44.6 46.5 PLT 317 -- 272 274 NA -- -- 138 140 K -- -- 3.7 3.7 CHLOR -- -- 103 106* CO2 -- -- 24 22 CREAT -- -- 0.80 0.70* BUN -- -- 16 13 GLUC -- -- 97 105* TPROT -- -- -- 7.0 ALB -- -- -- 4.4 MG -- 2.3 -- -- CA -- -- 8.9 9.1 ALKPHOS -- -- -- 90 TBILI -- -- -- 0.5 AST -- -- -- 39 ALT -- -- -- 36 MICRO: Staph PCR: Negative IMAGING: CT Brain 08/28 IMPRESSION: No CT evidence of acute abnormalities of the cervical spine Mild foraminal stenosis at C5-6 level due to uncovertebral hypertrophy CT brain 08/28 IMPRESSION: Unremarkable nonenhanced brain CT. No acute intracranial abnormalities AXR 08/27 IMPRESSION: Indeterminate radiopaque foreign body in the left upper quadrant, possibly in the stomach. Correlate clinically. CXR 08/27 IMPRESSION: Lines, tubes, and devices: Interval placement of endotracheal tube with the tip approximately 2 cm above the level of the franco. Lungs and pleura: No consolidation. No pneumothorax. No visualized pleural effusion. Cardiomediastinal silhouette: Within normal limits and stable. Other: No radiopaque foreign body identified. PROCEDURE: EGD 08/27 Impression: - Normal esophagus. - Razor blade wrapped in clothe and plastic wrap were found in the stomach. Removal was successful. - Normal examined duodenum. IMPRESSION: Myoclonic jerking/Seizures - True epilepsy/seizure vs pseudoseizure activity? Foreign body ingestion - 2 razor blades, at risk for perforation - previous history of the same; reports wanting to be taken to hospital to get psych meds which he was not receiving at facility Mood disorder - off of meds for the past week Current smoker Marijuana use, opiate dependence - on suboxone Inhospital fall/trauma PLAN: - Biggest change in patients clinical status is episodes of myoclonic jerking/seizure-like activity. Initial episode appeared more consistent with pseudoseizure, however second episode was associated with post ictal behavior, LOC, and loss of bowel control. - Recommend continuous EEG - Seizure precautions - prn ativan - Consult neurology before starting anticonvulsants/AEDs - Obtain BMP, CPK, lactate - Patient s/p EGD with removal of razor blades/foreign bodies - Psych consultation appreciated. Though will hold wellbutrin given concerns for seizures - Repeat CT neck/head. C-collar in place - Lovenox Some documentation from the previous visit dated August 28, 2023 was copied and pasted. This has been been reviewed and edited as necessary for today's visit. ICU Checklist Last Documented/Reviewed time: 08/29/2023 8:41 AM ICU Consent Complete?: Yes A= Assess, Prevent, Manage Pain Pain adequately controlled?: (more content not included)... [facility] 08-29-2023 Note HNO ID: [id number] Author: KASSY REYES MD Service: Critical Care Author Type: Physician Type: Progress Notes Filed: 08/29/2023 15:53 Note Text: MICU PROGRESS NOTE PATIENT NAME: Keke Pemberton REASON FOR ADMISSION: Swallowed 2 Razor Blades LOS: 1 Subjective HPI Mr. Keke Pemberton is a 33 year old male with PMH: - Bipolar disorder on bupropion, carbamazepine (no recent documented fills) - ADHD - Anxiety disorder - History of swallowed foreign bodies - Tobacco use Patient presented to [facility] from [facility] on 08/28/2023 with complaints of foreign body ingestion. Patient states that he has been incarcerated for the last week in [facility] and has not had access to psych medications. He states that he intentionally ingested two razors today with the intent of getting attention so that he could get his psych medications. He endorses moderate sharp abdominal pain across his lower abdomen. Endorses multiple episodes of nonbloody loose stools this AM. Denies nausea, chest pain, difficulty swallowing, sore throat, headaches, vision changes, rashes wounds. He states he follows with psych in [place], [place]. Of note, there are no recent fills of bupropion or carbamazepine in the chart. He is a current smoker. Denies other substance use today. Upon arrival to the ED, patient noted to be HDS. ED workup was significant for CXR and KUB demonstrating foreign body in the fundus of the stomach. GI on-call contacted by ED - plans for emergent endoscopy tonight. INTERVAL EVENTS Was extubated overnight. This morning, patient is alert and oriented. Requests to see psychiatry, patient informed consult in already in. This morning had an episode of seizure like activity, please see plan of care note. Pertinent results include: UDS: + benzos, cannabis, opiates WBC: 13.73 CBC, BMP otherwise WNL UAL not suggestive of UTI Staph aureus: negative CXR: Interval removal of the prior radiopaque foreign body overlying the stomach with no radiopaque foreign body identified. XR cervical Spine: no FB seen XR abdomen: no FB seen Consultation updates, all recs are appreciated: Psych GI Objective OBJECTIVE BP 118/85 Pulse 74 Temp 36.9 ?C (98.4 ?F) (Axillary) Resp 20 Ht 180.3 cm (5' 11) Wt 61.1 kg (134 lb 11.2 oz) SpO2 98% BMI 18.79 kg/m? Temp (24hrs), Av.9 ?C (98.4 ?F), Min:36.8 ?C (98.2 ?F), Max:37 ?C (98.6 ?F) Body mass index is 18.79 kg/m?., Hemoglobin A1C (%) Date Value 04/25/2023 5.1 Intake/Output Summary (Last 24 hours) at 08/29/2023 0701 Last data filed at 08/29/2023 0242 Gross per 24 hour Intake 56.2 ml Output 175 ml Net -118.8 ml LABORATORY: BLOOD GAS: CBC: Recent Labs 08/29/23 0526 08/28/23 1845 WBC 13.72* 10.96 HB 15.3 15.6 HCT 44.6 46.5 PLT 272 274 MCV 88.0 88.6 RDWCV 13.5 12.9 COAG: No results for input(s): APTT, INR in the last 168 hours. CMP: Recent Labs 08/29/23 0526 08/28/23 1845 GLUC 97 105* NA 138 140 K 3.7 3.7 CHLOR 103 106* CO2 24 22 ANION 11 12 BUN 16 13 CREAT 0.80 0.70* ALB -- 4.4 TBILI -- 0.5 ALKPHOS -- 90 AST -- 39 ALT -- 36 TPROT -- 7.0 URINALYSIS:No results for input(s): PH, SPGR, UGLUC, UBILI, UKET, UHB, UPROT, UROBIL, UWBC, SSA in the last 168 hours. Invalid input(s): NITR Cardiac:No results for input(s): CKTEST, CKMB, CKMBP, TROPONIN, BNP in the last 168 hours. Microbiology: Positive Micro-30 Days No results found for the last 720 hours. No results found for: LVEF Physical Exam Constitutional: Appearance: Normal appearance. HENT: Head: Normocephalic. Eyes: Extraocular Movements: Extraocular movements intact. Pupils: Pupils are equal, round, and reactive to light. Cardiovascular: Rate and Rhythm: Normal rate and regular rhythm. Pulmonary: Effort: Pulmonary effort is normal. Abdominal: General: Abdomen is flat. There is no distension. Palpations: Abdomen is soft. Musculoskeletal: General: Normal range of motion. Cervical back: Normal range of motion and neck supple. No rigidity or tenderness. Skin: General: Skin is warm and dry. Neurological: General: No focal deficit present. Mental Status: He is alert and oriented to person, place, and time. Mental status is at baseline. Psychiatric: Mood and Affect: Mood normal. CURRENT MEDICATIONS: IV infusions:propofol infusion, Last Rate: Stopped (08/28/232307) fentaNYL Scheduled medications:nicotine, 1 Patch, DAILY And [START ON 08/30/2023] nicotine -- REMOVE patch, , DAILY And nicotine - verify patch, , q 8 H Chlorhexidine Gluconate, 15 mL, q 12 H PRN:ondansetron (PF), 4 mg, q 6 H PRN NaCl 0.9%, 20 mL, PRN propofol, 20 mg, q 30 MIN PRN Or propofol, 20 mg, q 30 MIN PRN fentaNYL, 25-50 mcg, q 10 MIN PRN Or fentaNYL, 25-50 mcg, q 30 MIN PRN VENTILATOR INFORMATION: Settings: Invasive Ventilator Mode (Select One): (more content not included)... [facility] 08-28-2023 Note HNO ID: [id number] Author: INO UNDERWOOD MD Service: Critical Care Author Type: Physician Type: Procedures Filed: 08/28/2023 21:06 Note Text: BEDSIDE PROCEDURE NOTE INTUBATION Date/Start Time: 08/28/2023 8:50 PM Date/Stop Time: 08/28/2023 8:54 PM Performed by: Ino Underwood MD Authorized by: Ino Underwood MD Where was Patient When this Procedure was Performed Bedside/Unscheduled Procedure Room This procedure has been performed in part by a resident/fellow under attending's direction Informed Consent Consent Obtained: Verbal [place] Protocol A moment to CARE was completed. SIGN IN Personnel directly involved with the procedure wore the appropriate PPE. Special Equipment: Yes Patient/Surrogate Stated/Verified: Patient name, Date of , Relevant allergies and Intended procedure TIME OUT Intended patient and procedure match the source document(s). Consent documented and matches the intended procedure. Relevant labs, photos, and/or imaging studies have been reviewed. Correct side/site marked and visible. Medications required for procedure verified. No fire risk assessment and interventions applicable. No implant(s) inserted. Pre-Procedure Details: Type: Orotracheal Medications: Analgesia (see MAR): Fentanyl Muscle Relaxant (see MAR): Succinylcholine Sedation (see MAR): Etomidate and midazolam Procedure Details: Indication: Airway protection Difficulty Encountered: None Equipment: Video laryngoscope and endotracheal tube ET Tube Size/Type: 7.5 Subglottic Cuffed: yes The patient was administered supplemental oxygen by bag-mask ventilation. Adjunct airway equipment and suction were at the bedside and ready to use. The head was placed in the sniffing position. The method used for intubation was: rapid sequence The patient was suspected to have a full stomach. Cricoid Pressure: was not used I - visualized entire cords via direct video laryngoscopy. The tube was inserted using a video laryngoscope and secured at 26 cm at the lip. Placement was confirmed with bilateral auscultation of breath sounds without air sounds in the abdomen and end-tidal CO2. Number of Attempts: 1 Successful: Yes Assisting Clinician(s): Marjan Zayas MD Post-Procedure Details: Patient Tolerance: Patient tolerated the procedure well with no immediate complications Estimated Blood Loss: none Specimens Sent: none SIGN OUT No specimen collected. All instruments, equipment, possible retained foreign bodies accounted for. Post-procedure follow-up management communicated and Plan of Care Visit completed when applicable Comments: I was present for and supervised all franklin components of the procedure. Ino Underwood MD 9:06 PM August 28, 2023 SIGNATURE: Ino Underwood MD PATIENT NAME: Keke Pemberton DATE: August 28, 2023 TIME: 9:04 PM [facility] 08-28-2023 Note HNO ID: [id number] Author: INO UNDERWOOD MD Service: Critical Care Author Type: Physician Type: Progress Notes Filed: 08/28/2023 22:00 Note Text: [facility] STAFF PHYSICIAN NOTE OF PERSONAL INVOLVEMENT IN CARE IMPRESSION: Patient is a 33 year old incarcerated male with hx of mood disorder, smoking, marijuana use who presented to the ED after swallowing 2 razor blades. Admitted to the ICU for the following: Foreign body ingestion - 2 razor blades, at risk for perforation - previous history of the same; reports wanting to be taken to hospital to get psych meds which he was not receiving at facility Mood disorder - off of meds for the past week Current smoker Marijuana use, opiate dependence - on suboxone PLAN: -admit to ICU -GI consulted - plan for endoscopy -will intubate for procedure -monitor for signs of perforation ie worsening abdominal pain, distention -NPO except meds -psych consult post-procedure -full code This patient has a high probability of sudden, clinically significant deterioration, which requires the highest level of physician preparedness to intervene urgently. I managed/supervised life or organ supporting interventions that required frequent physician assessment. I devoted my full attention to the direct care of this patient for the amount of time indicated below. Time I spent with family or surrogate(s) is included only if the patient was incapable of providing the necessary information or participating in medical decision making. Time devoted to teaching is not included. Critical Care Documentation: The patient has the following organ/system impairment(s): Complex life-threatening medical problem(s): Need for emergent endoscopy with high risk of perforation Patient/Family/Staff Updated Time spent providing critical care services: 30 minutes excluding procedures. SIGNATURE: Ino Underwood MD [facility] P[facility]:[phone] DATE of SERVICE: August 28, 2023 [facility] 08-22-2023 Emergency department Note Below are additional resources that you may find beneficial in your treatment: 12-Step: Heroin Anonymous: Tao Corrales.: [phone], Danielito Bardales: [phone] Narcotics Anonymous: 888-GET_HOPE (508-290-4703) nabuckeye.org Alcohol Anonymous: akronaa.org Miguel Anon: 105.670.6909: 12-step program for families & friends of people with addiction. CRISIS: Homeless Hotline: 988.405.5365 [facility]) 18/11 line-18/11 OFFICE: [phone] [facility]: [address] [facility], [place] [address] [phone] (24 Hours) Domestic Violence help line anytime: 216.973.2780 Crisis Hotline: 18/11- 438.742.4019 ADM Addiction Helpline: 813.603.5574 (available 8:30 AM to 4:00 PM ) 2--1 2--1 helps people across [facility] find local resources when they don't know where to turn for help. We are available 24 hours a day, 7 days a week. For help, simply dial to speak to one of our trained professionals. Methadone Treatment: [facility] - [place], [place] [phone] [place], [place] [phone] [facility] - [place], [place] [phone] [facility] - [place], [place] [phone] [facility] - [phone] ext. [phone] or [phone] [facility] - [place], [place] [phone] [facility] ([place]) [phone] [facility]OX TREAT[facility]: [facility], [place], [place] [phone] /ADM Crisis Center: anytime @ [phone] for alcohol & drug addiction help. [facility] coordination: [phone] (Medicare not accepted) [facility] [place]: [phone] [facility] [place]: [phone], [facility] [place]: [phone] [facility] [place] [phone] Adolescent detox [place], [place] [phone] [facility] [place] - [place]: [phone] [facility], [place], [place] [phone] [facility], [place], [place] (pt. must be medically cleared prior to admission in ED) Charles CRUZ [place] [phone] OUTPATIENT TREATMENT: [facility] @ [facility] [place] [phone]. 1st Step MAT Program @ [facility] ED: [phone] 1st Step MAT Program @ [facility] ED: [phone] 1st Step MAT Program @ [facility] ED: [phone] Intensive Outpatient Programs- [place], [place] [phone] [place], [place] [phone] [place], [place] [phone] [facility]: [place], [place] [phone] or [phone]. [facility]: [phone] [facility] [place]: [phone], [place]: [phone] [facility] [place]: [phone] [facility], [place]: [phone], [place]: [phone] [facility] [place]: [phone] [place], [place] [phone] Behavioral Health Services: [facility]: Nuqpf-[phone], [facility]-[phone], [place]- [phone] [facility]al [facility], [place]: [phone], [place]: [phone] [facility] [phone] [facility], [place], [place] [phone] RESIDENTIAL TREATMENT FACILITIES: [facility]: inpt. Or outpt. - [phone] [facility] [place], [place] [phone] [place], [place] [phone] [facility] Residential tx., [place], [place] [phone] (admission coordinated by ADM -Lurdes Pagan ext [phone]) [facility] Residential Tx[facility] [place], [place]: [phone]; Men's services inpt. & women services - Outpt. [facility], [place] [phone] [facility], [place], [place] [phone] [facility], [place], [place] [phone] [facility], [place], [place] [phone] [facility], [place], [place] [phone] [facility] [place], [place] [phone] [facility], [place], [place] [phone] [place], [place] [phone] OTHER SERVICES: [facility] Service: [phone] [facility]: [phone] ext. [phone] Medicaid Health Coverage: [facility] [place]: [phone] Junior Hopkins RN 08/22/232033 [facility] 08-22-2023 Emergency department Note Below are additional resources that you may find beneficial in your treatment: 12-Step: Heroin Anonymous: Tao Donald: [phone], Danielito Bardales: [phone] Narcotics Anonymous: 888-GET_HOPE (202-068-5703) nabuckeye.org Alcohol Anonymous: akronaa.org Miguel Anon: 849.450.7466: 12-step program for families & friends of people with addiction. CRISIS: Homeless Hotline: 868.631.2117 [facility] 18/11 line-18/11 OFFICE: [phone] [facility]: [address] [facility], [place] [address] [phone] (24 Hours) Domestic Violence help line anytime: 659.551.4482 Crisis Hotline: 18/11- 655.325.6254 ADM Addiction Helpline: 252.126.6385 (available 8:30 AM to 4:00 PM ) 05-29-1 helps people across [facility] find local resources when they don't know where to turn for help. We are available 24 hours a day, 7 days a week. For help, simply dial to speak to one of our trained professionals. Methadone Treatment: [facility] - [place], [place] [phone] [place], [place] [phone] [facility] - [place], [place] [phone] [facility] - [place], [place] [phone] [facility] - [phone] ext. [phone] or [phone] [facility] [place] [facility] [facility] [place], [place] [phone] [facility] ([place]) [phone] DETOX TREAT[facility]: [facility] [place] [place] [phone] /[facility] Crisis Center: anytime @ [phone] for alcohol & drug addiction help. [facility] coordination: [phone] (Medicare not accepted) [facility] [place]: [phone] [place], [place]: [phone], [facility] [place]: [phone] [place], [place] [phone] Adolescent detox [place], [place] [phone] [facility] [place]: [phone] [facility], [place], [place] [phone] ext. [phone] [place], [place] (pt. must be medically cleared prior to admission in ED) [place] [phone] OUTPATIENT TREATMENT: [facility] @ [place] [phone]. 1st Step MAT Program @ [facility] ED: [phone] 1st Step MAT Program @ [facility] ED: [phone] 1st Step MAT Program @ [facility] ED: [phone] Intensive Outpatient Programs- [facility] [place], [place] [phone] [place], [place] [phone] [facility] [place] [phone] [facility]: [place], [place] [phone] or [phone]. [facility]: [phone] [facility], [place]: [phone], [place]: [phone] [facility], [place]: [phone] [facility], [place]: [phone], [place]: [phone] [facility] [place]. [place]: [phone] [place] [phone] Behavioral Health Services: [facility]: [phone], [phone], [place]- [phone] [facility], [place]: [phone], [place]: [phone] [place] [phone] [facility], [place], [place] [phone] RESIDENTIAL TREATMENT FACILITIES: [facility]: inpt. Or outpt. - [phone] [facility], [place], [place] [phone] [facility] [place], [place] [phone] [facility] tx, [place], [place] [phone] (admission coordinated by -Lurdes Pagan ext [phone]) [facility] [place], [place]: [phone]; Men's services inpt. & women services - Outpt. [facility], [place], [place] [phone] [facility], [place], [place] [phone] [facility], [place], [place] [phone] [facility], [place], [place] [phone] [facility], [place], [place] [phone] [facility] [place], [place] [phone] [facility], [place], [place] [phone] [place], [place] [phone] OTHER SERVICES: [facility]: [phone] [facility]: [phone] ext. [phone] Medicaid Health Coverage: [facility] JFS: [phone] Junior Hopkins RN 08/22/232033 Lj MATHURN is available STATE-WIDE. Narcan/Naloxone is available WITHOUT prescription at most [place] [facility], including [facility], [facility], [facility], [employer], and others. It has a cost, but there is a free program through [facility] (and [facility] other [facility]). A full list of pharmacies is available at the [place] [employer] website, but calling your local pharmacy is likely to be successful. You can buy it for $50-100 (insurance may cover it) and have it ready for another person. What is Lj MARSHA? Lj MCCOY is a community-based drug overdose prevention and education project. Participants receive training on: Recognizing the signs and symptoms of overdose Distinguishing between different types of overdose Performing rescue breathing Calling emergency medical services Administering intranasal Naloxone Lj MARSHA is named in memory of Jillian Cordova, who struggled with addiction for years before dying of a witnessed opioid overdose on January 28, 2009. Lj MARSHA is an initiative of the [facility] Opiate Task Force and is funded in part by the [facility] Alcohol, Drug Addiction and Mental Health (ADM) Services [facility] Alcohol, Drug Addiction & Mental Health Services [facility] Public [facility] [address] [place] [phone] www.counts include 234 beds at the [facility].org WALK-IN HOURS: Tuesdays (every hour) from 3pm - 6pm THIS IS A FREE SERVICE TO ALL PARTICIPANTS Deaths Avoided With Naloxone A community-based drug overdose prevention and education project Emergency first aid for a suspected opioid overdose: If a person is exhibiting symptoms of an opioid overdose, these following life-saving measures should be taken immediately: Check to see if they can respond Give them a light shake, yell their name. Any response? If you don't get a response, try a STERNUM RUB (rub your knuckles in the middle of their chest where the ribs meet for 10 seconds). Call You do not need to mention drugs when you call - provide basic information: Give the address and location. Say I have a person who has stopped breathing and is unresponsive. Perform Rescue Breathing Make sure nothing is in their mouth. Tilt head back, lift chin & pinch nose. Start by giving two breaths making sure the chest rises. If the chest does not rise, tilt the head back more and make sure you are plugging their nose. Give Naloxone Assemble the nasal spray Naloxone. [place] half (1 ml) up one nostril, half up the other. Continue rescue breathing, one breath every 5 seconds, while waiting for the Naloxone to take effect. Give a second dose of Naloxone if there is no response in 2-5 minutes. After Naloxone Continue to monitor their respirations and perform rescue breathing if respirations are below 10 breaths a minute. Stay with them until help arrives. The Naloxone may wear off and the victim could start to overdose again. What is Naloxone? Naloxone (also known as Narcan) is a medication that can reverse an overdose that is caused by an opioid drug. When administered during an overdose, Naloxone blocks the effects of opioids on the brain and restores breathing within two to eight minutes. Naloxone has been used safely by emergency medical support specialist for more than 40 years and has only one function: to reverse the effects of opioids on the brain and respiratory system in order to prevent . Naloxone has no potential for abuse. If Naloxone is given to a person who is not experiencing an opioid overdose, it is harmless. If naloxone is administered to a person who is dependent on opioids, it will produce withdrawal symptoms. Withdrawal, although uncomfortable, is not life- threatening. Naloxone does not reverse overdoses that are caused by non-opioid drugs, such as cocaine, benzodiazepines (e.g. Xanax, Klonopin and Valium), methamphetamines, or alcohol. What are some common opioids? Opioids include both heroin and prescription pain medications. Some common opioid pain medications include: hydrocodone (Lorcet and Vicodin), oxycodone (Percocet), long acting opioids (Oxycontin, MS Contin, Methadone), and patches (Fentanyl). Other brand name opioid pain medications include Opana ER, Avinza and Jud. How do I know if someone is overdosing? A person who is experiencing an overdose may have the following symptoms: breathing is slow and shallow (less than 10 breaths per minute) or has stopped; vomiting; face is pale and clammy; blue or grayish lips and fingernails; slow, erratic, or no pulse; choking or loud snoring noises; will not respond to shaking or sternum rub; skin may turn siu, blue, or ashen. An overdose is a medical emergency! Call immediately and begin first aid. What are the risk factors for an opioid overdose? Mixing Drugs Many overdoses occur when people mix heroin or prescription opioids with alcohol, benzodiazepines, or antidepressants. Alcohol and benzodiazepines (such as Xanax, Klonopin and Valium) are particularly dangerous because, like opioids, these substances impact an individual's ability to breathe. Lowered Tolerance Tolerance is your body's ability to process a drug. Tolerance changes over time so that you may need more of a drug to feel its effects. However, tolerance can decrease rapidly when someone has taken a break from using a substance whether intentionally (in treatment) or unintentionally (in retirement or the hospital). Taking opioids after a period of not using can increase the risk of a fatal overdose. Health Problems Your physical health impacts your body's ability to manage opioids. Since opioids can impair your ability to breathe, if you have asthma or other breathing problems you are at higher risk for an overdose. Individuals with liver or kidney disease or dysfunction, heart disease or HIV/AIDS are also at an increased risk of an overdose. Previous Overdose A person who has experienced a nonfatal overdose in the past, has an increased risk of a fatal overdose in the future. Junior Hopkins RN 08/22/232030 EMERGENCY DEPARTMENT ENCOUNTER Pt Name: Keke Pemberton Birthdate 1990 Date of evaluation: 08/22/2023 ED Provider: Stephy Glover MD CHIEF COMPLAINT Chief Complaint Patient presents with Chest Pain HISTORY OF PRESENT ILLNESS (Location/Symptom, Timing/Onset, Context/Setting, Quality, Duration, Modifying Factors, Severity) Note limiting factors. I wore appropriate PPE for the entirety of this encounter. HPI Keke Pemberton is a 33 y.o. who presents to the emergency department complaint of chest pain. He describes it as a sharp sensation that began a couple days ago and has been constant. States that it worsened this evening. Patient brought in by EMS and law enforcement after reportedly running eloping. Patient states that he feels like he is withdrawing from fentanyl and is requesting Suboxone. He states that his last use was 3 days ago. Endorses subjective chills, congestion, abdominal cramping. Denies any shortness of breath. Denies any known coronary artery disease. Nursing Notes were reviewed. Outside historians: EMS and Law enforcement REVIEW OF SYSTEMS Review of Systems Constitutional: Positive for chills. HENT: Positive for congestion. Respiratory: Negative for cough and shortness of breath. Cardiovascular: Positive for chest pain. Gastrointestinal: Negative for vomiting. Abdominal cramping Genitourinary: Negative for dysuria. Musculoskeletal: Negative for neck stiffness. Neurological: Negative for headaches. Pertinent positives and negatives as per HPI PAST MEDICAL HISTORY No past medical history on file. SURGICAL HISTORY No past surgical history on file. CURRENT MEDICATIONS Previous Medications No medications on file ALLERGIES Patient has no known allergies. FAMILY HISTORY No family history on file. SOCIAL HISTORY Social History Socioeconomic History Marital status: Unknown Tobacco Use Smoking status: Never Smokeless tobacco: Never Substance and Sexual Activity Alcohol use: Not Currently Drug use: Not Currently PHYSICAL EXAM ED Triage Vitals [08/22/232014] Temp Heart Rate Resp BP 37 C (98.6 F) (!) 119 13 112/80 SpO2 Temp Source Heart Rate Source Patient Position 97 % Oral Monitor Lying BP Location FiO2 (%) Left arm -- Physical Exam Vitals and nursing note reviewed. Constitutional: General: He is not in acute distress. Appearance: He is not ill-appearing. Comments: 33-year-old male HENT: Head: Normocephalic and atraumatic. Eyes: Extraocular Movements: Extraocular movements intact. Pupils: Pupils are equal, round, and reactive to light. Cardiovascular: Rate and Rhythm: Regular rhythm. Tachycardia present. Pulses: Normal pulses. Heart sounds: No murmur heard. Comments: 2+ symmetric radial pulses Pulmonary: Effort: Pulmonary effort is normal. Breath sounds: Normal breath sounds. Abdominal: Palpations: Abdomen is soft. Tenderness: There is no abdominal tenderness. Musculoskeletal: Cervical back: Normal range of motion. Right lower leg: No edema. Left lower leg: No edema. Neurological: Mental Status: He is alert. DIAGNOSTIC RESULTS RADIOLOGY (Per Emergency Physician): Interpretation per the Radiologist below, if available at the time of this note: XR chest 1 view Final Result No radiographic acute cardiopulmonary process. Report Dictated on Electronically Signed By: Malissa Noguera MD Electronically Signed Date/Time: 08/22/2023 9:00 PM EDT LABS: Labs Reviewed CBC WITH AUTO DIFFERENTIAL - Abnormal Result Value Auto WBC 9.3 RBC 4.73 Hemoglobin 14.0 Hematocrit 41.3 MCV 87.3 MCH 29.6 MCHC 33.9 RDW 13.2 Platelets 258 MPV 9.4 nRBC 0.0 Neutrophils Relative 61.1 Lymphocytes Relative 24.5 Monocytes Relative 11.4 Eosinophils Relative 2.3 Basophils Relative 0.3 Immature Grans % 0.4 Neutrophils Absolute 5.7 Lymphocytes Absolute 2.3 Monocytes Absolute 1.1 (*) Eosinophils Absolute 0.2 Basophils Absolute 0.0 Immature Grans Absolute 0.0 COMPREHENSIVE METABOLIC PANEL - Normal SODIUM 139 POTASSIUM 3.5 CHLORIDE 105 CARBON DIOXIDE 22 ANION GAP 12 UREA NITROGEN 17 CREATININE 0.91 GLUCOSE 96 CALCIUM 9.5 AST (SGOT) 45 ALT 44 ALKALINE PHOSPHATASE 73 ALBUMIN 4.4 BILIRUBIN, TOTAL 0.4 TOTAL PROTEIN 7.4 eGFR >90.0 TROPONIN I - Normal TROPONIN I <0.012 Narrative: Patients with high levels of Biotin oral intake (ie >5 mg/day) may have falsely decreased Troponin levels. D-DIMER,QUANTITATIVE - Normal D-DIMER, INNOVANCE 0.37 Narrative: [employer]ance D-Dimer values of <0.50 mg/L FEU can be used in combination with a pre-test probability model (e.g. Well's) to exclude pulmonary embolism (PE) disease, as well as an aid in the diagnosis of deep vein thrombosis (DVT). DRUGS OF ABUSE All other labs were within normal range or not returned as of this dictation. EMERGENCY DEPARTMENT COURSE and DIFFERENTIAL DIAGNOSIS/MDM: Vitals: Vitals: 08/22/23200608/22/232014 BP: 112/80 BP Location: Left arm Patient Position: Lying Pulse: (!) 119 Resp: 13 Temp: 37 C (98.6 F) TempSrc: Oral SpO2: 97% Weight: 68 kg (150 lb) Height: 1.803 m (5' 11) Medications aspirin chewable tablet 324 mg (324 mg Oral Given 08/22/232105) traMADol (Ultram) tablet 100 mg (100 mg Oral Given 08/22/232105) Evaluated for his chest pain that he reportedly has had for couple days but wanted to be evaluated after reportedly being arrested. Patient has tachycardia. Endorses history of substance use and states that he is currently withdrawing from opiates. Patient treated with aspirin. Discussed concerns with starting Suboxone due to leading to precipitated withdrawal. Treated with oral tramadol for symptomatic relief. Patient was discussed with addiction career and transition teacher. Heart score of 1 due to risk factors but low clinical suspicion. Low Wells score with a negative D-dimer making dissection or embolic disease unlikely. Chest x-ray was unremarkable. Troponin was normal. Patient discharged in stable improved condition in the custody of law enforcement. ED Course as of 08/22/232116Aug 22, 20232034 Discussed with addiction career and transition teacher who plans to provide patient with resources to facilitate outpatient Suboxone. Agreed with plan to treat symptomatically with tramadol do not trust the patient's reported withdrawal symptoms and concern for precipitating withdrawal causing harm to the patient. [SP] 2100 Auto WBC: 9.3 [SP] 2100 HEMOGLOBIN: 14.0 [SP] 2100 eGFR: >90.0 [SP] 2100 TROPONIN I: <0.012 [SP] 2100 D-DIMER, INNOVANCE: 0.37 [SP] 210 XR chest 1 view IMPRESSION: No radiographic acute cardiopulmonary process. [SP] ED Course User Index [SP] Stephy Glover MD Diagnoses as of 08/22/232116 Chest pain, unspecified type Opiate use PROCEDURES: Unless otherwise noted below, none Procedures FINAL IMPRESSION 1. Chest pain, unspecified type 2. Opiate use DISPOSITION Discharge 08/22/2023 09:02:25 PM PATIENT REFERRED TO: Clara Karimi DO [address] [place] [address] Schedule an appointment as soon as possible for a visit [facility] [address] [place] [address] Schedule an appointment as soon as possible for a visit [facility] ED [address] [place] [address] Go to As needed, If symptoms worsen DISCHARGE MEDICATIONS: New Prescriptions No medications on file (Comment: Please note this report has been produced using speech recognition software and may contain errors related to that system including errors in grammar, punctuation, and spelling, as well as words and phrases that may be inappropriate. If there are any questions or concerns please feel free to contact the dictating provider for clarification.) Stephy Glover MD (electronically signed) Emergency Medicine Provider Stephy Glover MD 08/22/232147 States pain started a couple days ago, but became really intense in the last few hours. Pain is in the left chest pain, rates at 8/10. Sharp in nature, constant. Denies any radiation. Does endorse shortness of breath. Does also report nausea and vomiting. Pt states he is also in withdrawal from fentanyl for the last 3 days, requesting suboxone. Does endorse hot and cold chills, congestion, sneezing/ sniffles. Reports using about 1 gm per day. documented in this encounter [facility] 08-22-2023 Emergency department Note Project MARSHA is available STATE-WIDE. Narcan/Naloxone is available WITHOUT prescription at most [place] [facility], including [employer], [employer] [facility] [employer], [employer], [employer], and others. It has a cost, but there is a free program through [facility] (and [facility] other [facility]). A full list of pharmacies is available at the [place] [employer] website, but calling your local pharmacy is likely to be successful. You can buy it for $50-100 (insurance may cover it) and have it ready for another person. What is Project MARSHA? Project MARSHA is a community-based drug overdose prevention and education project. Participants receive training on: Recognizing the signs and symptoms of overdose Distinguishing between different types of overdose Performing rescue breathing Calling emergency medical services Administering intranasal Naloxone Lj MCCOY is named in memory of Jillian Cordova, who struggled with addiction for years before dying of a witnessed opioid overdose on January 28, 2009. Lj MCCOY is an initiative of the [facility] Opiate Task Force and is funded in part by the [facility] Alcohol, Drug Addiction and Mental Health (ADM) Services [facility] Alcohol, Drug Addiction & Mental Health Services [place] [address] www.counts include 234 beds at the [facility].org WALK-IN HOURS: Tuesdays (every hour) from 3pm - 6pm THIS IS A FREE SERVICE TO ALL PARTICIPANTS Deaths Avoided With Naloxone A community-based drug overdose prevention and education project Emergency first aid for a suspected opioid overdose: If a person is exhibiting symptoms of an opioid overdose, these following life-saving measures should be taken immediately: Check to see if they can respond Give them a light shake, yell their name. Any response? If you don't get a response, try a STERNUM RUB (rub your knuckles in the middle of their chest where the ribs meet for 10 seconds). Call You do not need to mention drugs when you call - provide basic information: Give the address and location. Say I have a person who has stopped breathing and is unresponsive. Perform Rescue Breathing Make sure nothing is in their mouth. Tilt head back, lift chin & pinch nose. Start by giving two breaths making sure the chest rises. If the chest does not rise, tilt the head back more and make sure you are plugging their nose. Give Naloxone Assemble the nasal spray Naloxone. [place] half (1 ml) up one nostril, half up the other. Continue rescue breathing, one breath every 5 seconds, while waiting for the Naloxone to take effect. Give a second dose of Naloxone if there is no response in 2-5 minutes. After Naloxone Continue to monitor their respirations and perform rescue breathing if respirations are below 10 breaths a minute. Stay with them until help arrives. The Naloxone may wear off and the victim could start to overdose again. What is Naloxone? Naloxone (also known as Narcan) is a medication that can reverse an overdose that is caused by an opioid drug. When administered during an overdose, Naloxone blocks the effects of opioids on the brain and restores breathing within two to eight minutes. Naloxone has been used safely by emergency medical support specialist for more than 40 years and has only one function: to reverse the effects of opioids on the brain and respiratory system in order to prevent . Naloxone has no potential for abuse. If Naloxone is given to a person who is not experiencing an opioid overdose, it is harmless. If naloxone is administered to a person who is dependent on opioids, it will produce withdrawal symptoms. Withdrawal, although uncomfortable, is not life- threatening. Naloxone does not reverse overdoses that are caused by non-opioid drugs, such as cocaine, benzodiazepines (e.g. Xanax, Klonopin and Valium), methamphetamines, or alcohol. What are some common opioids? Opioids include both heroin and prescription pain medications. Some common opioid pain medications include: hydrocodone (Lorcet and Vicodin), oxycodone (Percocet), long acting opioids (Oxycontin, MS Contin, Methadone), and patches (Fentanyl). Other brand name opioid pain medications include Opana ER, Avinza and Jud. How do I know if someone is overdosing? A person who is experiencing an overdose may have the following symptoms: breathing is slow and shallow (less than 10 breaths per minute) or has stopped; vomiting; face is pale and clammy; blue or grayish lips and fingernails; slow, erratic, or no pulse; choking or loud snoring noises; will not respond to shaking or sternum rub; skin may turn siu, blue, or ashen. An overdose is a medical emergency! Call immediately and begin first aid. What are the risk factors for an opioid overdose? Mixing Drugs Many overdoses occur when people mix heroin or prescription opioids with alcohol, benzodiazepines, or antidepressants. Alcohol and benzodiazepines (such as Xanax, Klonopin and Valium) are particularly dangerous because, like opioids, these substances impact an individual's ability to breathe. Lowered Tolerance Tolerance is your body's ability to process a drug. Tolerance changes over time so that you may need more of a drug to feel its effects. However, tolerance can decrease rapidly when someone has taken a break from using a substance whether intentionally (in treatment) or unintentionally (in retirement or the hospital). Taking opioids after a period of not using can increase the risk of a fatal overdose. Health Problems Your physical health impacts your body's ability to manage opioids. Since opioids can impair your ability to breathe, if you have asthma or other breathing problems you are at higher risk for an overdose. Individuals with liver or kidney disease or dysfunction, heart disease or HIV/AIDS are also at an increased risk of an overdose. Previous Overdose A person who has experienced a nonfatal overdose in the past, has an increased risk of a fatal overdose in the future. Junior Hopkins RN 08/22/232030 [facility] 08-22-2023 Emergency department Triage note States pain started a couple days ago, but became really intense in the last few hours. Pain is in the left chest pain, rates at 8/10. Sharp in nature, constant. Denies any radiation. Does endorse shortness of breath. Does also report nausea and vomiting. Pt states he is also in withdrawal from fentanyl for the last 3 days, requesting suboxone. Does endorse hot and cold chills, congestion, sneezing/ sniffles. Reports using about 1 gm per day. [facility] 08-22-2023 Physician Emergency department Note EMERGENCY DEPARTMENT ENCOUNTER Pt Name: Keke Pemberton Birthdate 1990 Date of evaluation: 08/22/2023 ED Provider: Stephy Glover MD CHIEF COMPLAINT Chief Complaint Patient presents with Chest Pain HISTORY OF PRESENT ILLNESS (Location/Symptom, Timing/Onset, Context/Setting, Quality, Duration, Modifying Factors, Severity) Note limiting factors. I wore appropriate PPE for the entirety of this encounter. HPI Keke Pemberton is a 33 y.o. who presents to the emergency department complaint of chest pain. He describes it as a sharp sensation that began a couple days ago and has been constant. States that it worsened this evening. Patient brought in by EMS and law enforcement after reportedly running eloping. Patient states that he feels like he is withdrawing from fentanyl and is requesting Suboxone. He states that his last use was 3 days ago. Endorses subjective chills, congestion, abdominal cramping. Denies any shortness of breath. Denies any known coronary artery disease. Nursing Notes were reviewed. Outside historians: EMS and Law enforcement REVIEW OF SYSTEMS Review of Systems Constitutional: Positive for chills. HENT: Positive for congestion. Respiratory: Negative for cough and shortness of breath. Cardiovascular: Positive for chest pain. Gastrointestinal: Negative for vomiting. Abdominal cramping Genitourinary: Negative for dysuria. Musculoskeletal: Negative for neck stiffness. Neurological: Negative for headaches. Pertinent positives and negatives as per HPI PAST MEDICAL HISTORY No past medical history on file. SURGICAL HISTORY No past surgical history on file. CURRENT MEDICATIONS Previous Medications No medications on file ALLERGIES Patient has no known allergies. FAMILY HISTORY No family history on file. SOCIAL HISTORY Social History Socioeconomic History Marital status: Unknown Tobacco Use Smoking status: Never Smokeless tobacco: Never Substance and Sexual Activity Alcohol use: Not Currently Drug use: Not Currently PHYSICAL EXAM ED Triage Vitals [08/22/232014] Temp Heart Rate Resp BP 37 C (98.6 F) (!) 119 13 112/80 SpO2 Temp Source Heart Rate Source Patient Position 97 % Oral Monitor Lying BP Location FiO2 (%) Left arm -- Physical Exam Vitals and nursing note reviewed. Constitutional: General: He is not in acute distress. Appearance: He is not ill-appearing. Comments: 33-year-old male HENT: Head: Normocephalic and atraumatic. Eyes: Extraocular Movements: Extraocular movements intact. Pupils: Pupils are equal, round, and reactive to light. Cardiovascular: Rate and Rhythm: Regular rhythm. Tachycardia present. Pulses: Normal pulses. Heart sounds: No murmur heard. Comments: 2+ symmetric radial pulses Pulmonary: Effort: Pulmonary effort is normal. Breath sounds: Normal breath sounds. Abdominal: Palpations: Abdomen is soft. Tenderness: There is no abdominal tenderness. Musculoskeletal: Cervical back: Normal range of motion. Right lower leg: No edema. Left lower leg: No edema. Neurological: Mental Status: He is alert. DIAGNOSTIC RESULTS RADIOLOGY (Per Emergency Physician): Interpretation per the Radiologist below, if available at the time of this note: XR chest 1 view Final Result No radiographic acute cardiopulmonary process. Report Dictated on Electronically Signed By: Malissa Noguera MD Electronically Signed Date/Time: 08/22/2023 9:00 PM EDT LABS: Labs Reviewed CBC WITH AUTO DIFFERENTIAL - Abnormal Result Value Auto WBC 9.3 RBC 4.73 Hemoglobin 14.0 Hematocrit 41.3 MCV 87.3 MCH 29.6 MCHC 33.9 RDW 13.2 Platelets 258 MPV 9.4 nRBC 0.0 Neutrophils Relative 61.1 Lymphocytes Relative 24.5 Monocytes Relative 11.4 Eosinophils Relative 2.3 Basophils Relative 0.3 Immature Grans % 0.4 Neutrophils Absolute 5.7 Lymphocytes Absolute 2.3 Monocytes Absolute 1.1 (*) Eosinophils Absolute 0.2 Basophils Absolute 0.0 Immature Grans Absolute 0.0 COMPREHENSIVE METABOLIC PANEL - Normal SODIUM 139 POTASSIUM 3.5 CHLORIDE 105 CARBON DIOXIDE 22 ANION GAP 12 UREA NITROGEN 17 CREATININE 0.91 GLUCOSE 96 CALCIUM 9.5 AST (SGOT) 45 ALT 44 ALKALINE PHOSPHATASE 73 ALBUMIN 4.4 BILIRUBIN, TOTAL 0.4 TOTAL PROTEIN 7.4 eGFR >90.0 TROPONIN I - Normal TROPONIN I <0.012 Narrative: Patients with high levels of Biotin oral intake (ie >5 mg/day) may have falsely decreased Troponin levels. D-DIMER,QUANTITATIVE - Normal D-DIMER, INNOVANCE 0.37 Narrative: Innovance D-Dimer values of <0.50 mg/L FEU can be used in combination with a pre-test probability model (e.g. Well's) to exclude pulmonary embolism (PE) disease, as well as an aid in the diagnosis of deep vein thrombosis (DVT). DRUGS OF ABUSE All other labs were within normal range or not returned as of this dictation. EMERGENCY DEPARTMENT COURSE and DIFFERENTIAL DIAGNOSIS/MDM: Vitals: Vitals: 08/22/23200608/22/232014 BP: 112/80 BP Location: Left arm Patient Position: Lying Pulse: (!) 119 Resp: 13 Temp: 37 C (98.6 F) TempSrc: Oral SpO2: 97% Weight: 68 kg (150 lb) Height: 1.803 m (5' 11) Medications aspirin chewable tablet 324 mg (324 mg Oral Given 08/22/232105) traMADol (Ultram) tablet 100 mg (100 mg Oral Given 08/22/232105) Evaluated for his chest pain that he reportedly has had for couple days but wanted to be evaluated after reportedly being arrested. Patient has tachycardia. Endorses history of substance use and states that he is currently withdrawing from opiates. Patient treated with aspirin. Discussed concerns with starting Suboxone due to leading to precipitated withdrawal. Treated with oral tramadol for symptomatic relief. Patient was discussed with addiction career and transition teacher. Heart score of 1 due to risk factors but low clinical suspicion. Low Wells score with a negative D-dimer making dissection or embolic disease unlikely. Chest x-ray was unremarkable. Troponin was normal. Patient discharged in stable improved condition in the custody of law enforcement. ED Course as of 08/22/232116Aug 22, 20232034 Discussed with addiction career and transition teacher who plans to provide patient with resources to facilitate outpatient Suboxone. Agreed with plan to treat symptomatically with tramadol do not trust the patient's reported withdrawal symptoms and concern for precipitating withdrawal causing harm to the patient. [SP] 2100 Auto WBC: 9.3 [SP] 2100 HEMOGLOBIN: 14.0 [SP] 2100 eGFR: >90.0 [SP] 2100 TROPONIN I: <0.012 [SP] 2099 D-DIMER, INNOVANCE: 0.37 [SP] 210 XR chest 1 view IMPRESSION: No radiographic acute cardiopulmonary process. [SP] ED Course User Index [SP] Stephy Glover MD Diagnoses as of 08/22/232116 Chest pain, unspecified type Opiate use PROCEDURES: Unless otherwise noted below, none Procedures FINAL IMPRESSION 1. Chest pain, unspecified type 2. Opiate use DISPOSITION Discharge 08/22/2023 09:02:25 PM PATIENT REFERRED TO: Clara Karimi DO [address] [place] [address] Schedule an appointment as soon as possible for a visit [facility] Intake [address] [place] [address] Schedule an appointment as soon as possible for a visit [facility] ED [address] [place] [address] Go to As needed, If symptoms worsen DISCHARGE MEDICATIONS: New Prescriptions No medications on file (Comment: Please note this report has been produced using speech recognition software and may contain errors related to that system including errors in grammar, punctuation, and spelling, as well as words and phrases that may be inappropriate. If there are any questions or concerns please feel free to contact the dictating provider for clarification.) Stephy Glover MD (electronically signed) Emergency Medicine Provider Stephy Glover MD 08/22/232147 [facility] 04-27-2023 Note HNO ID: [id number] Author: Clara Karimi DO Service: Psychiatry Author Type: Physician Type: Progress Notes Filed: 04/27/2023 8:56 PM Note Text: PROGRESS NOTE BEHAVIORAL HEALTH SERVICE DATE: April 27, 2023 SERVICE TIME: 1745 The Interdisciplinary team met and reviewed treatment goals and discharge planning. Subjective Pt seen in the day area. He was eating dinner. Has a good appetite. Denies any opioid withdrawal symptoms. Did get Suboxone at 1421. Patients said he typically tales 16 mg once per day. Per [facility] pt had Suboxone 8 mg daily. Denies cravings. He said he would have never came to the hospital if he was going to have to stay with this long. Pt understands no discharges are occurring this weekend. He is hopeful to be set up with a Suboxone provider as he has been seeing a MAT provider through telemed. He said he had a visit from his uncle and plans to return home with him. Again mentions taking his Wellbutrin from home. He denied SI/HI. Not attending groups. Tending to ADLS. Some constipation and would like a stool softner. Objective PHYSICAL EXAM: BP 139/76 Pulse 98 Temp 36.8 ?C (98.2 ?F) Resp 16 Ht 180.3 cm (5' 11) Wt 68 kg (150 lb) SpO2 99% BMI 20.92 kg/m? MENTAL STATUS EXAMINATION: Appearance: Casually dressed and Appears stated age. Good hygiene Behavior: Appropriate, yet withdrawn Orientation: Person, Place, Time and Situation Speech/Language: The patient demonstrates appropriate tone, prosody, tobin, phonetics, and syntax Mood/Affect: ok/ affect is flat Thought Form: Coherent Thought Content: Vague Suicidal Ideations: No suicidal ideation, intent or plan. Homicidal Ideations: No homicidal ideation, intent or plan. Insight: Limited Judgment: Limited Memory/Cognition: Intact Psychomotor: Psychomotor activity was normal NEW PROBLEMS ON UNIT SINCE LAST ENCOUNTER: None Current Facility-Administered Medications Medication Dose Route Frequency LORazepam 2 mg (ATIVAN) 2 mg ORAL q 4 H PRN Or LORazepam 2 mg injection (ATIVAN) 2 mg INTRAMUSCULAR q 4 H PRN haloperidol 5 mg tab(s) (HALDOL) 5 mg ORAL q 4 H PRN Or haloperidol lactate 5 mg short-acting injection (HALDOL) 5 mg INTRAMUSCULAR q 4 H PRN traZODone 50 mg tab(s) (DESYREL) 50 mg ORAL AT BEDTIME PRN hydrOXYzine HCl 50 mg tab(s) (ATARAX) 50 mg ORAL q 4 H PRN acetaminophen 650 mg tab(s) (TYLENOL) 650 mg ORAL q 6 H PRN aluminum-magnesium hydroxide-simethicone 200-200-20 mg/5 mL 30 mL 30 mL ORAL q 4 H PRN magnesium hydroxide 400 mg/5 mL 30 mL (MOM) 30 mL ORAL DAILY PRN diphenhydrAMINE 50 mg injection (BENADRYL) 50 mg INTRAMUSCULAR q 30 MIN PRN nicotine polacrilex 2 mg gum (NICORETTE) 2 mg ORAL q 2 H PRN LORazepam 1 mg tab(s) (ATIVAN) 1 mg ORAL q 2 H PRN Or LORazepam 2 mg (ATIVAN) 2 mg ORAL q 2 H PRN Or LORazepam 2 mg (ATIVAN) 2 mg ORAL q 1 H PRN dicyclomine 10 mg cap(s) (BENTYL) 10 mg ORAL q 6 H PRN loperamide 2 mg cap(s) (IMODIUM) 2 mg ORAL PRN ondansetron 4 mg tab(s) (ZOFRAN) 4 mg ORAL q 6 H PRN Or ondansetron (PF) 4 mg injection (ZOFRAN) 4 mg INTRAVENOUS q 6 H PRN naloxone 0.4 mg injection (NARCAN) 0.4 mg INTRAMUSCULAR PRN buprenorphine-nalOXone SL 8-2 mg 1 tablet (SUBOXONE) 1 tablet SUBLINGUAL q 1 H PRN Patient Home Medications (stored in pharmacy) OTHER DAILY carBAMazepine 200 mg tab(s) (TEGretol) 200 mg ORAL BID nicotine 14 mg/24 hr 1 Patch (NICODERM) 1 Patch TRANSDERMAL DAILY And nicotine -- REMOVE patch OTHER DAILY And nicotine - verify patch OTHER q 8 H melatonin 3 mg tab(s) 3 mg ORAL DAILY (8 PM) oxymetazoline 0.05 % 1 [place] (GENASAL) 1 [place] EACH NOSTRIL BID PRN DATA: Diagnostic tests reviewed for today's visit: Most recent labs Component Latest Ref Rng AND Units 04/25/2023 WBC 3.70 - 11.00 k/uL 8.28 RBC 4.20 - 6.00 m/uL 4.79 Hemoglobin 13.0 - 17.0 g/dL 14.5 Hematocrit 39.0 - 51.0 % 44.4 MCV 80.0 - 100.0 fL 92.7 MCH 26.0 - 34.0 pg 30.3 MCHC 30.5 - 36.0 g/dL 32.7 RDW-CV 11.5 - 15.0 % 11.6 Platelet Count 150 - 400 k/uL 219 MPV 9.0 - 12.7 fL 10.2 Neut% % 64.7 Abs Neut (ANC) 1.45 - 7.50 k/uL 5.36 Lymph% % 22.7 Abs Lymph 1.00 - 4.00 k/uL 1.88 [place]% % 9.8 Abs [place] <0.87 k/uL 0.81 Eosin% % 2.2 Abs Eosin <0.46 k/uL 0.18 Baso% % 0.4 Abs Baso <0.11 k/uL 0.03 Immature Gran % % 0.2 IMMATURE GRANS (ABS) <0.10 k/uL <0.03 NRBC /100 WBC 0.0 Absolute nRBC <0.01 k/uL <0.01 DTYPE Auto Glucose 74 - 99 mg/dL 107 (H) BUN 9 - 24 mg/dL 13 Creatinine 0.73 - 1.22 mg/dL 0.72 (L) Sodium 136 - 144 mmol/L 139 Potassium 3.7 - 5.1 mmol/L 4.2 Chloride 97 - 105 mmol/L 103 CO2 22 - 30 mmol/L 25 Anion Gap 9 - 18 mmol/L 11 Calcium 8.5 - 10.2 mg/dL 9.3 eGFR >=60 mL/min/1.73mA? 124 Cholesterol, Total <200 mg/dL 131 Triglyceride <150 mg/dL 27 HDL Cholesterol >39 mg/dL 59 Non HDL Cholesterol <130 mg/dL 72 Fasting Time hrs Unknown VLDL Cholesterol <30 mg/dL 5 TC:HDL Ratio <5.10 2.22 LDL Cholestero (more content not included)... [facility] 04-26-2023 Note HNO ID: [id number] Author: Clara Karimi DO Service: Psychiatry Author Type: Physician Type: Progress Notes Filed: 04/26/2023 3:21 PM Note Text: PROGRESS NOTE BEHAVIORAL HEALTH SERVICE DATE: 04/26/2023 SERVICE TIME: 2:58 PM The Interdisciplinary team met and reviewed treatment goals and discharge planning. Subjective Pt seen at bedside. COWS 9. Suboxone 8/2 given at 8:23 AM this AM Has been withdrawn to room. Not attending any groups Denies any withdrawal symptoms. No N/V/D. Rhinorrhea is observed. He is eating well . Denies cravings. Said he relapsed as he was triggered witnessing his aunts and performing CPR. He denied SI/HI. No AVH. He is not interested in residential as he wants to return home to his Uncle and go back to work Pt requesting bupropion as he said he takes this at home. No hx of seizures. No alcohol use. Said it helps with his mood and does not cause any hypomania/angela Is aware of Hepatitis C and would like treatment. Has not had Hep B Vaccine and was unsure of possible Hep b. Agreeable to see ID Objective PHYSICAL EXAM: BP 102/53 Pulse 90 Temp 36.8 ?C (98.2 ?F) (Oral) Resp 16 Ht 180.3 cm (5' 11) Wt 68 kg (150 lb) SpO2 98% BMI 20.92 kg/m? MENTAL STATUS EXAMINATION: Appearance: Casually dressed and Appears stated age Behavior: Appropriate, yet withdrawn Orientation: Person, Place, Time and Situation Speech/Language: The patient demonstrates appropriate tone, prosody, tobin, phonetics, and syntax Mood/Affect: ok/ affect is flat Thought Form: Coherent Thought Content: Vague Suicidal Ideations: No suicidal ideation, intent or plan. Homicidal Ideations: No homicidal ideation, intent or plan. Insight: Limited Judgment: Limited Memory/Cognition: Intact Psychomotor: Psychomotor activity was normal NEW PROBLEMS ON UNIT SINCE LAST ENCOUNTER: None Current Facility-Administered Medications Medication Dose Route Frequency LORazepam 2 mg (ATIVAN) 2 mg ORAL q 4 H PRN Or LORazepam 2 mg injection (ATIVAN) 2 mg INTRAMUSCULAR q 4 H PRN haloperidol 5 mg tab(s) (HALDOL) 5 mg ORAL q 4 H PRN Or haloperidol lactate 5 mg short-acting injection (HALDOL) 5 mg INTRAMUSCULAR q 4 H PRN traZODone 50 mg tab(s) (DESYREL) 50 mg ORAL AT BEDTIME PRN hydrOXYzine HCl 50 mg tab(s) (ATARAX) 50 mg ORAL q 4 H PRN acetaminophen 650 mg tab(s) (TYLENOL) 650 mg ORAL q 6 H PRN aluminum-magnesium hydroxide-simethicone 200-200-20 mg/5 mL 30 mL 30 mL ORAL q 4 H PRN magnesium hydroxide 400 mg/5 mL 30 mL (MOM) 30 mL ORAL DAILY PRN diphenhydrAMINE 50 mg injection (BENADRYL) 50 mg INTRAMUSCULAR q 30 MIN PRN nicotine polacrilex 2 mg gum (NICORETTE) 2 mg ORAL q 2 H PRN LORazepam 1 mg tab(s) (ATIVAN) 1 mg ORAL q 2 H PRN Or LORazepam 2 mg (ATIVAN) 2 mg ORAL q 2 H PRN Or LORazepam 2 mg (ATIVAN) 2 mg ORAL q 1 H PRN dicyclomine 10 mg cap(s) (BENTYL) 10 mg ORAL q 6 H PRN loperamide 2 mg cap(s) (IMODIUM) 2 mg ORAL PRN ondansetron 4 mg tab(s) (ZOFRAN) 4 mg ORAL q 6 H PRN Or ondansetron (PF) 4 mg injection (ZOFRAN) 4 mg INTRAVENOUS q 6 H PRN naloxone 0.4 mg injection (NARCAN) 0.4 mg INTRAMUSCULAR PRN buprenorphine-nalOXone SL 8-2 mg 1 tablet (SUBOXONE) 1 tablet SUBLINGUAL q 1 H PRN Patient Home Medications (stored in pharmacy) OTHER DAILY carBAMazepine 200 mg tab(s) (TEGretol) 200 mg ORAL BID nicotine 14 mg/24 hr 1 Patch (NICODERM) 1 Patch TRANSDERMAL DAILY And nicotine -- REMOVE patch OTHER DAILY And nicotine - verify patch OTHER q 8 H melatonin 3 mg tab(s) 3 mg ORAL DAILY (8 PM) DATA: Diagnostic tests reviewed for today's visit: Most recent labs Component Latest Ref Rng AND Units 04/25/2023 WBC 3.70 - 11.00 k/uL 8.28 RBC 4.20 - 6.00 m/uL 4.79 Hemoglobin 13.0 - 17.0 g/dL 14.5 Hematocrit 39.0 - 51.0 % 44.4 MCV 80.0 - 100.0 fL 92.7 MCH 26.0 - 34.0 pg 30.3 MCHC 30.5 - 36.0 g/dL 32.7 RDW-CV 11.5 - 15.0 % 11.6 Platelet Count 150 - 400 k/uL 219 MPV 9.0 - 12.7 fL 10.2 Neut% % 64.7 Abs Neut (ANC) 1.45 - 7.50 k/uL 5.36 Lymph% % 22.7 Abs Lymph 1.00 - 4.00 k/uL 1.88 [place]% % 9.8 Abs [place] <0.87 k/uL 0.81 Eosin% % 2.2 Abs Eosin <0.46 k/uL 0.18 Baso% % 0.4 Abs Baso <0.11 k/uL 0.03 Immature Gran % % 0.2 IMMATURE GRANS (ABS) <0.10 k/uL <0.03 NRBC /100 WBC 0.0 Absolute nRBC <0.01 k/uL <0.01 DTYPE Auto Glucose 74 - 99 mg/dL 107 (H) BUN 9 - 24 mg/dL 13 Creatinine 0.73 - 1.22 mg/dL 0.72 (L) Sodium 136 - 144 mmol/L 139 Potassium 3.7 - 5.1 mmol/L 4.2 Chloride 97 - 105 mmol/L 103 CO2 22 - 30 mmol/L 25 Anion Gap 9 - 18 mmol/L 11 Calcium 8.5 - 10.2 mg/dL 9.3 eGFR >=60 mL/min/1.73mA? 124 Cholesterol, Total <200 mg/dL 131 Triglyceride <150 mg/dL 27 HDL Cholesterol >39 mg/dL 59 Non HDL Cholesterol <130 mg/dL 72 Fasting Time hrs Unknown VLDL Cholesterol <30 mg/dL 5 TC:HDL Ratio <5.10 2.22 LDL Cholesterol <100 mg/dL 67 LDL:HDL Ratio <2.54 1.14 HIV 12 Combo (Ag/Ab) Nonreactive Nonreactiv (more content not included)... [facility] 04-25-2023 Note HNO ID: [id number] Author: Talita Deleon MD Service: Process Group Author Type: Physician Type: Progress Notes Filed: 04/25/2023 9:49 AM Note Text: [id number] [facility] 02-08-2023 Note HNO ID: [id number] Author: Note, Interface Service: ? Author Type: ? Type: Progress Notes Filed: 02/08/2023 5:28 AM Note Text: Epic Scheduled Downtime: 02/08/2023 1:00:00 AM to 02/08/2023 1:28:00 AM [facility] 02-08-2023 Note HNO ID: [id number] Author: Note, Interface Service: ? Author Type: ? Type: Progress Notes Filed: 02/08/2023 4:59 AM Note Text: Epic Scheduled Downtime: 02/08/2023 1:00:00 AM to 02/08/2023 1:28:00 AM [facility] 02-08-2023 Note HNO ID: [id number] Author: Note, Interface Service: ? Author Type: ? Type: Progress Notes Filed: 02/08/2023 3:04 AM Note Text: Epic Scheduled Downtime: 02/08/2023 1:00:00 AM to 02/08/2023 1:28:00 AM [facility] 01-06-2023 Note HNO ID: [id number] Author: Leonor Prince RN Service: Care Management Author Type: Registered Nurse Type: Care Mgt Progress Note Filed: 01/06/2023 8:45 AM Note Text: CARE MANAGEMENT DISCHARGE NOTE SERVICE DATE: January 06, 2023 SERVICE TIME: 8:43 AM Admission Date: 01/03/2023 LOS: 0 days Discharge Arrangement Discharge Arrangement: [facility]/Police Services Arranged Medical Services: Other: See Comment (N/A) Provider Name: [facility] Caregiver Assessment Caregiver is ready, willing and able to meet the patient's needs as recommended by the inter-professional team: Yes Name of Caregiver: [facility] Transportation Arrangements Transportation Arrangements: Car Destination: [facility] Handoff Communication: Handoff to: Other Caregiver Other Caregiver Name/Phone: [facility] [phone] Additional Information: Patient discharged back to [facility]. Security watching the patient due to him telling the bedside sitter he is going to run out of here. Sgt. with [facility] notified. [facility] will provide DC transportation. SIGNATURE: Leonor Prince RN PATIENT NAME: Keke Pemberton DATE: January 06, 2023 TIME: 8:43 AM CONTACT #: [phone] [facility] 01-05-2023 Note HNO ID: [id number] Author: Nathan Appiah MD Service: Hospital Medicine Author Type: Physician Type: Progress Notes Filed: 01/05/2023 4:11 PM Note Text: DEPARTMENT OF HOSPITAL MEDICINE PROGRESS NOTE SERVICE DATE: 01/05/2023 SERVICE TIME: 4:08 PM Hospital Medicine/Primary Attending: Nathan Appiah MD NIGHT AND WEEKEND COVERAGE: After 7pm please page [phone] CHIEF COMPLAINT: Follow-up for patient with ingestion of battery and metal wall clip SUBJECTIVE: Patient seen and examined. Status post EGD yesterday. Patient requesting to have a shower. Has a sitter in place. OBJECTIVE: PHYSICAL EXAM: BP 107/72 Pulse 105 Temp (Src) 98.6 (Oral) Resp 18 Ht 5' 11 (1.80m) Wt 136 lb 3.9 oz (61.8kg) SpO2 98% BMI 19.01 kg/(m2). O2 Therapy: Room Air General - AANDOx3, NAD, Calm, depressed appearing, psychomotor retardation CV - RRR S1 S2, No M/R/G RESP - CTA B/L No wheezes, ronchi, rales ABD -generalized tenderness 1+. Normal bowel sounds EXT - no gross joint deformity, no clubbing, cyanosis, edema NEURO - CN II-XII grossly intact, no focal deficits MEDICATIONS: Current Facility-Administered Medications Medication Dose Route Frequency NaCl 0.9% iv flush bag 20 mL INTRAVENOUS PRN nicotine 14 mg/24 hr 1 Patch (NICODERM) 1 Patch TRANSDERMAL DAILY And nicotine -- REMOVE patch OTHER DAILY And nicotine - verify patch OTHER q 8 H sucralfate 1 g tab(s) (CARAFATE) 1 g ORAL AC and HS psyllium 1 Packet (METAMUCIL) 1 Packet ORAL BID aluminum-magnesium hydroxide-simethicone 200-200-20 mg/5 mL 30 mL 30 mL ORAL q 6 H PRN benzocaine-menthol 1 Lozenge (CEPACOL) 1 Lozenge MUCOUS MEMBRANE (TOPICAL MOUTH AND THROAT) q 2 H PRN guaiFENesin 600 mg ER tab(s) (MUCINEX) 600 mg ORAL q 12 H PRN melatonin 3 mg tab(s) 3 mg ORAL AT BEDTIME PRN ondansetron (PF) 4 mg injection (ZOFRAN) 4 mg INTRAVENOUS q 6 H PRN polyethylene glycol 3350 17 g packet 17 g ORAL DAILY PRN docusate sodium 100 mg cap(s) (COLACE) 100 mg ORAL BID PRN polyvinyl alcohol-povidone 1.4-0.6 % 1 Drop (REFRESH) 1 Drop BOTH EYES PRN saliva substitute combo no.9 15 mL (BIOTENE mouthwash) 15 mL MUCOUS MEMBRANE (TOPICAL MOUTH AND THROAT) TID PRN sodium chloride 0.65 % 2 [place] 2 [place] EACH NOSTRIL PRN prochlorperazine 10 mg injection (COMPAZINE) 10 mg INTRAVENOUS q 6 H PRN [START ON 01/06/2023] pantoprazole DR 40 mg tab(s) (PROTONIX) 40 mg ORAL DAILY (6 AM) oxyCODONE IR 5 mg tab(s) (ROXICODONE) 5 mg ORAL q 8 H PRN acetaminophen 1,000 mg tab(s) (TYLENOL) 1,000 mg ORAL TID lithium carbonate ER 300 mg tab(s) 300 mg ORAL AT BEDTIME traZODone 25 mg tab(s) (DESYREL) 25 mg ORAL AT BEDTIME PRN DATA: Diagnostic tests reviewed for today's visit: CBC: Recent Labs 01/05/23 0611 WBC 13.38* RBC 4.56 HB 13.6 HCT 40.7 PLT 206 MCV 89.3 MCH 29.8 MPV 9.3 Coags: No results for input(s): PT, INR, APTT in the last 24 hours. BMP: Recent Labs 01/05/23 0611 NA 142 K 3.8 CHLOR 106* CO2 25 BUN 9 CREAT 0.74 GLUC 91 CMP: Recent Labs 01/05/23 0611 NA 142 K 3.8 CHLOR 106* CO2 25 BUN 9 CREAT 0.74 GLUC 91 TPROT 6.2* CA 8.9 TBILI 0.2 ALKPHOS 100 ALT 37 AST 17 ANION 11 Cardiac Enzymes: No results for input(s): CK, MB, CKMB, TROPT in the last 24 hours. Liver Function, Amylase, Lipase: Recent Labs 01/05/23 0611 TPROT 6.2* ALB 4.1 ALT 37 AST 17 ALKPHOS 100 TBILI 0.2 MG/PHOS: No results for input(s): MG, P in the last 24 hours. Renal Panel: Recent Labs 01/05/23 0611 CREAT 0.74 BUN 9 GLUC 91 CA 8.9 CHLOR 106* K 3.8 CO2 25 NA 142 Heme: No results for input(s): RETICP, ABSRETIC, LD, CLAUDIA, FE, TIBC, TRANSFERSAT in the last 24 hours. No results found for: UALBCR Assessment/Plan 1. Pica with recurrent ingestion of foreign nonnutritive objects. At this time and patient swallowed a battery and metallic wall clip. Taken down to the OR by GI for endoscopic removal. Clip able to be retrieved from proximal duodenum however battery seems to have been propelled beyond the reach of the endoscope. We will be continuing with Metamucil to aid with passage per GI recommendations. Psychiatry consulted, medications modified and adjusted and noted. Recommending okay for discharge and no requirement for inpatient psychiatry admission. General surgery on consult as well. We will monitor for another 24 hours and if stable hopefully can be discharged 2. Prepyloric duodenal erosion. Continue with PPI with pantoprazole 40 mg daily. Carafate 1 g 4 times daily ordered as well per recommendations from gastroenterology. VTE Prophylaxis: Lovenox 40mg Sub Q Daily Disposition: To be determined Plan of care discussed with: Provider, RN, Patient SIGNATURE: Nathan Appiah MD PATIENT NAME: Keke Pemberton DATE: January 05, 2023 TIME: 4:08 PM PAGER/CONTACT #: Charlotte lanier [facility] [facility] HNO ID: [id number] Author: Angel Braun MD Service: Gastroenterology Author Type: Physician Type: Progress Notes Filed: 01/05/2023 12:35 PM Note Text: GI CONSULT PROGRESS NOTE SERVICE DATE: 01/05/2023 SERVICE TIME: 1230 CONSULTING SERVICE: Gastroenterology Subjective foreign body ingestion INTERVAL HPI: looks well some llq pain no bleeding kub showed ingested batteries Current Facility-Administered Medications Medication Dose Route Frequency NaCl 0.9% iv flush bag 20 mL INTRAVENOUS PRN nicotine 14 mg/24 hr 1 Patch (NICODERM) 1 Patch TRANSDERMAL DAILY And nicotine -- REMOVE patch OTHER DAILY And nicotine - verify patch OTHER q 8 H sucralfate 1 g tab(s) (CARAFATE) 1 g ORAL AC and HS psyllium 1 Packet (METAMUCIL) 1 Packet ORAL BID aluminum-magnesium hydroxide-simethicone 200-200-20 mg/5 mL 30 mL 30 mL ORAL q 6 H PRN benzocaine-menthol 1 Lozenge (CEPACOL) 1 Lozenge MUCOUS MEMBRANE (TOPICAL MOUTH AND THROAT) q 2 H PRN guaiFENesin 600 mg ER tab(s) (MUCINEX) 600 mg ORAL q 12 H PRN melatonin 3 mg tab(s) 3 mg ORAL AT BEDTIME PRN ondansetron (PF) 4 mg injection (ZOFRAN) 4 mg INTRAVENOUS q 6 H PRN polyethylene glycol 3350 17 g packet 17 g ORAL DAILY PRN docusate sodium 100 mg cap(s) (COLACE) 100 mg ORAL BID PRN polyvinyl alcohol-povidone 1.4-0.6 % 1 Drop (REFRESH) 1 Drop BOTH EYES PRN saliva substitute combo no.9 15 mL (BIOTENE mouthwash) 15 mL MUCOUS MEMBRANE (TOPICAL MOUTH AND THROAT) TID PRN sodium chloride 0.65 % 2 [place] 2 [place] EACH NOSTRIL PRN prochlorperazine 10 mg injection (COMPAZINE) 10 mg INTRAVENOUS q 6 H PRN [START ON 01/06/2023] pantoprazole DR 40 mg tab(s) (PROTONIX) 40 mg ORAL DAILY (6 AM) oxyCODONE IR 5 mg tab(s) (ROXICODONE) 5 mg ORAL q 8 H PRN acetaminophen 1,000 mg tab(s) (TYLENOL) 1,000 mg ORAL TID lithium carbonate ER 300 mg tab(s) 300 mg ORAL AT BEDTIME traZODone 25 mg tab(s) (DESYREL) 25 mg ORAL AT BEDTIME PRN Objective PHYSICAL EXAM: Physical Exam Performed: ABDOMEN: Abdomen soft, non-tender, BS normal, No masses or organomegaly BP 111/76 Pulse 85 Temp (Src) 98.6 (Oral) Resp 15 Ht 5' 11 (1.80m) Wt 136 lb 3.9 oz (61.8kg) SpO2 99% BMI 19.01 kg/(m2). O2 Therapy: Room Air DATA: Diagnostic tests reviewed for today's visit: Most recent labs and imaging results. Impression/Recommendations cont metamucil bid serial [facility] mental health eval on this admission SIGNATURE: Angel Braun MD PATIENT NAME: Keke Pemberton DATE: January 05, 2023 TIME: 12:33 PM [facility] 01-04-2023 Note HNO ID: [id number] Author: Nighat Esqueda LSW Service: Care Management Author Type: Golf Cart Maker Type: Care Mgt Progress Note Filed: 01/04/2023 3:14 PM Note Text: CARE MANAGEMENT PROGRESS NOTE SERVICE DATE: 01/04/2023 SERVICE TIME: 3:10 PM LOS: 0 days SW was consulted due to patient being transported to [facility] from [facility]. Plan for patient to [facility] once dishcarged. SW attempted to see patient who was in OR. RN stated that retirement will provided transport for patient back to retirement once discharged. Contact number [phone]. SW will continue to follow clinical course. SIGNATURE: RICHELLE Roberts PATIENT NAME: Keke Pemberton DATE: January 04, 2023 TIME: 3:10 PM PAGER/CONTACT #: [phone] [facility] 01-04-2023 Note HNO ID: [id number] Author: Nathan Appiah MD Service: Hospital Medicine Author Type: Physician Type: Progress Notes Filed: 01/04/2023 2:47 PM Note Text: DEPARTMENT OF HOSPITAL MEDICINE PROGRESS NOTE SERVICE DATE: 01/04/2023 SERVICE TIME: 2:41 PM Hospital Medicine/Primary Attending: Ntahan Appiah MD NIGHT AND WEEKEND COVERAGE: After 7pm please page [phone] CHIEF COMPLAINT: Follow-up for ingestion of foreign objects SUBJECTIVE: Patient complains of anxiety OBJECTIVE: PHYSICAL EXAM: BP 115/79 Pulse 71 Temp (Src) 97.3 (Oral) Resp 15 Ht 5' 11 (1.80m) Wt 136 lb 3.9 oz (61.8kg) SpO2 100% BMI 19.01 kg/(m2). O2 Therapy: Room Air, Liters: 2 MEDICATIONS: Current Facility-Administered Medications Medication Dose Route Frequency NaCl 0.9% iv flush bag 20 mL INTRAVENOUS PRN morphine 2 mg injection 2 mg INTRAVENOUS q 4 H PRN nicotine 14 mg/24 hr 1 Patch (NICODERM) 1 Patch TRANSDERMAL DAILY And [START ON 01/05/2023] nicotine -- REMOVE patch OTHER DAILY And nicotine - verify patch OTHER q 8 H dextrose 5% in NaCl 0.45% with 20 mEq/L KCl iv infusion 100 mL/hr INTRAVENOUS CONTINUOUS buPROPion SR 150 mg tab(s) (ZYBAN SR; WELLBUTRIN SR) 150 mg ORAL BID traZODone 50 mg tab(s) (DESYREL) 50 mg ORAL AT BEDTIME busPIRone (BUSPAR) tab(s) 15 mg 15 mg ORAL BID [START ON 01/05/2023] pantoprazole 40 mg injection (PROTONIX) 40 mg INTRAVENOUS DAILY (6 AM) DATA: Diagnostic tests reviewed for today's visit: CBC: No results for input(s): WBC, RBC, HB, HCT, PLT, MCV, MCH, MPV, RDW in the last 24 hours. Coags: No results for input(s): PT, INR, APTT in the last 24 hours. BMP: No results for input(s): NA, K, CHLOR, CO2, BUN, CREAT, GLUC in the last 24 hours. CMP: No results for input(s): NA, K, CHLOR, CO2, BUN, CREAT, GLUC, TPROT, CA, MG, ALBUMIN, TBILI, ALKPHOS, ALT, AST, ANION in the last 24 hours. Cardiac Enzymes: No results for input(s): CK, MB, CKMB, TROPT in the last 24 hours. Liver Function, Amylase, Lipase: No results for input(s): TPROT, ALB, ALT, AST, ALKPHOS, TBILI, AMYLASE, LIPASE, LACTATE in the last 24 hours. MG/PHOS: No results for input(s): MG, P in the last 24 hours. Renal Panel: No results for input(s): ALBUMIN, CREAT, BUN, GLUC, CA, P, CHLOR, K, CO2, NA in the last 24 hours. Heme: No results for input(s): RETICP, ABSRETIC, LD, CLAUDIA, FE, TIBC, TRANSFERSAT in the last 24 hours. No results found for: UALBCR Assessment/Plan 1. Pica with recurrent ingestion of foreign nonnutritive objects. At this time and patient swallowed a battery and metallic wall clip. Taken down to the OR by GI for endoscopic removal. Clip able to be retrieved from proximal duodenum however battery seems to have been propelled beyond the reach of the endoscope. GI recommending Metamucil to aid with passage. Psychiatry consulted. General surgery on consult as well. 2. Prepyloric duodenal erosion. Continue with PPI with pantoprazole 40 mg daily. Carafate 1 g 4 times daily ordered as well per recommendations from gastroenterology. VTE Prophylaxis: Lovenox 40mg Sub Q Daily Disposition: Discharge from hospital versus inpatient psychiatry Plan of care discussed with: Provider, RN, Patient SIGNATURE: Nathan Appiah MD PATIENT NAME: Keke Pemberton DATE: January 04, 2023 TIME: 2:41 PM PAGER/CONTACT #: Charlotte lanier [facility] 01-04-2023 Note HNO ID: [id number] Author: Alissa Alejandra APRN.SUPERVISING FLOORPERSON Service: Anesthesiology Author Type: Nurse Visually Impaired Teacher Type: Anesthesia Procedure Notes Filed: 01/04/2023 1:05 PM Note Text: ANESTHESIOLOGY PROCEDURE NOTE Airway General Information Procedure Start Time/Medication Administration: 01/04/2023 1:03 PM Patient location during procedure: OR Timeout Performed Pre-procedure: timeout performed Consent Obtained: Yes Patient identity confirmed: arm band and patient Staffing SUPERVISING FLOORPERSON: Alissa Alejandra APRN.SUPERVISING FLOORPERSON Performed by: SUPERVISING FLOORPERSON Indications and Patient Condition Indications for airway management: anesthesia and airway protection Preoxygenated: yes anesthesia circuit Patient position: sniffing Method: rapid sequence Cricoid Pressure: Yes Final Airway Details Final airway type: endotracheal airway Final Endotracheal Airway: ETT Cuffed: yes Devices used: Card and intubating stylet Endotracheal tube insertion site: oral Blade: Argelia Blade size: #4 ETT size (mm): 8.0 Measured from: lips Measurement (cm): 21 Placement verified by: chest auscultation and capnometry Number of attempts at approach: 1 Airway not difficult SIGNATURE: Alissa Alejandra APRN.CRNA PATIENT NAME: Keke Pemberton DATE: January 04, 2023 TIME: 1:05 PM CSN: [id number] [facility] 01-04-2023 Note HNO ID: [id number] Author: Kaveh Hager DO Service: Psychiatry Author Type: Resident Type: Plan of Care Filed: 01/04/2023 11:42 AM Note Text: Patient not on floor, in operating room when psychiatry attempted to see patient. Will attempt to see again tomorrow. Psychiatry consulted due to patient request in setting of continuously swallowing foreign objects while in retirement. [facility] 01-04-2023 Note HNO ID: [id number] Author: Amy Herzog DO Service: Hospital Medicine Author Type: Physician Type: Plan of Care Filed: 01/04/2023 12:37 AM Note Text: At present, patient lacks sufficient decision making ability to make informed decisions to leave the hospital due to a current condition of swallowing objects Therefore, Keke Pemberton should not be allowed to leave the hospital against medical advice. The patient will be reevaluated within 24 hours for assessment of their decision making ability to make informed decisions to leave the hospital. An attempt will be made to identify an appropriate surrogate decision maker to be an active participant in this patients care. The LIP should follow the [facility] patient management guidance referenced below (can be pasted into browser): Against Medical Advice ( AMA ) Policy https://[email or web address].Zee Learn/docvi ew/?tzsem=[email or web address] Against Medical Advice ( AMA ) Attachment A- Evaluation of Capacity [email or web address]://[email or web address] Learn/docvi [email or web address]/?[email or web address] Against Medical Advice ( AMA ) Attachment B- Release of Responsibility [email or web address] [email or web address] [email or web address]/?[email or web address] Patients Without Surrogate Standard Operating Procedure [email or web address] [email or web address] Signature: Amy Herzog DO [facility] 01-04-2023 Note HNO ID: [id number] Author: Amy Herzog DO Service: Hospital Medicine Author Type: Physician Type: Plan of Care Filed: 01/04/2023 12:36 AM Note Text: Notes stated that a remote control was missing from ER. Now with new foreign object and 2 rectal batteries. Earlier pt denied having the remote or swallowing more batteries but did admit to swallowing a razor blade in the er. Will have general surgery see pt. Cannot leave AMA Amy Herzog DO 01/04/2023 12:32 AM [facility] 12-26-2022 Note HNO ID: [id number] Author: Malissa Leyva, DEMARCO Service: Nursing Author Type: Registered Nurse Type: Nursing Progress Note Filed: 12/26/2022 12:22 PM Note Text: [facility] was call and requested to call them if Pt leaves AMA. [facility] 12-26-2022 Note HNO ID: [id number] Author: Dewayne Santoro APRN.CRNA Service: Anesthesiology Author Type: Nurse Visually Impaired Teacher Type: Anesthesia Procedure Notes Filed: 12/26/2022 11:42 AM Note Text: ANESTHESIOLOGY PROCEDURE NOTE Airway General Information Procedure Start Time/Medication Administration: 12/26/2022 11:40 AM Patient location during procedure: OR Staffing SUPERVISING FLOORPERSON: Dewayne Santoro APRN.SUPERVISING FLOORPERSON Performed by: SUPERVISING FLOORPERSON and anesthesiologist Indications and Patient Condition Indications for airway management: anesthesia Preoxygenated: yes anesthesia circuit Method: rapid sequence Cricoid Pressure: Yes Difficult Mask: No Final Airway Details Final airway type: endotracheal airway Final Endotracheal Airway: ETT Cuffed: yes Successful intubation technique: video laryngoscopy Endotracheal tube insertion site: oral Blade: Argelia Blade size: #4 ETT size (mm): 8.0 Placement verified by: capnometry Cormack-Lehane Classification: grade I - full view of glottis Number of attempts at approach: 1 Airway not difficult SIGNATURE: Dewayne Santoro APRN.SUPERVISING FLOORPERSON PATIENT NAME: Keke Pemberton DATE: December 26, 2022 TIME: 11:40 AM CSN: [id number] [facility] 12-05-2022 Note HNO ID: [id number] Author: Leonor Prince RN Service: Care Management Author Type: Registered Nurse Type: Care Mgt Progress Note Filed: 12/05/2022 10:27 AM Note Text: CARE MANAGEMENT DISCHARGE NOTE SERVICE DATE: December 05, 2022 SERVICE TIME: 10:27 AM Admission Date: 12/04/2022 LOS: 0 days Discharge Arrangement Discharge Arrangement: Against Medical Advice Provider Name: N/A Phone: N/A Caregiver Assessment Caregiver is ready, willing and able to meet the patient's needs as recommended by the inter-professional team: No Caregiver needed Transportation Arrangements Transportation Arrangements: Car Additional Information: Patient left AMA. SIGNATURE: Leonor Prince RN PATIENT NAME: Keke Pemberton DATE: December 05, 2022 TIME: 10:27 AM CONTACT #: [phone] [facility] 12-05-2022 Note HNO ID: [id number] Author: Alexsander Henriquez RN Service: Nursing Author Type: Registered Nurse Type: Progress Notes Filed: 12/04/2022 10:48 PM Note Text: 213 pt requesting more pain medication. Pt was medicated with 2mg of morphine at 2115. Pt advised that med was just given and is Q8H. Pt unhappy with answer. 2230 pt requesting cell phone. Pt is here for SI. Advised pt that due to circumstance, he could not have personal belongings. Pt agitated and requesting another nurse. [facility] 12-04-2022 Note HNO ID: [id number] Author: Amy Herzog DO Service: Hospital Medicine Author Type: Physician Type: Plan of Care Filed: 12/04/2022 8:38 PM Note Text: At present, patient lacks sufficient decision making ability to make informed decisions to leave the hospital due to a current condition of Possible SI Therefore, Keke Pemberton should not be allowed to leave the hospital against medical advice. The patient will be reevaluated within 24 hours for assessment of their decision making ability to make informed decisions to leave the hospital. An attempt will be made to identify an appropriate surrogate decision maker to be an active participant in this patients care. The LIP should follow the [facility] patient management guidance referenced below (can be pasted into browser): Against Medical Advice ( AMA ) Policy https://ccf.Branch2.com/docvi ew/?dgfqg=7088 Against Medical Advice ( AMA ) Attachment A- Evaluation of Capacity https://ccf.ActiveTrak/docvi ew/?zrlcy=0608 Against Medical Advice ( AMA ) Attachment B- Release of Responsibility [email or web address]/docvi ew/?[email or web address] Patients Without Surrogate Standard Operating Procedure [email or web address] Signature: Amy Herzog DO [facility] 12-04-2022 Miscellaneous Notes BEHAVIORAL HEALTH BRIEF INTAKE NOTE SERVICE DATE: 12/04/2022 SERVICE TIME: 2:14 PM Keke Pemberton is a 32 year old male with a Hx of ADHD brought in to [facility] from [facility] by police for after swallowing 2 razor blades 45 minutes prior to arrival. FULL CASE NOT PROCESSED DUE TO: Patient medically admitted Per [facility] RN Ayde Butcher, Pt comes to ED via [facility] after swallowing 2 razor blades. Pt has abdominal cramping/tenderness and anxiety Pt denies having BM. Pt denies being suicidal or homicidal. Pt states I don't know why I did it, I'm crazy. I'm supposed to get out today at 2pm Pt is A&Ox3, vss and we will continue to monitor. Fentanyl screen was positive for fentantyl; UDS labs were unable to assay; BAL was negative. Patient was arrested 11/25/2022 for criminal damaging or endangering. Confirmed via discussion with [facility] Attending Physician Dr. Rubia Platt, DO that patient will be admitted medically as he does have 2 razor blades in his stomach confirmed via x-ray imaging. DISPOSITION & PLAN: Admit patient: No Discharge Disposition: Medical Admission Is Patient Less Than 18 Years of Age or have a Guardian/Healthcare Power of Tool Pusher?: No Disposition Date: 12/04/22 Disposition Time: 1413 SIGNATURE: MELODY Lord PATIENT NAME: Keke Pemberton DATE: December 04, 2022 TIME: 2:14 PM documented in this encounter [facility] 09-09-2021 Hospital Discharge instructions Patient Education 09/08/2021 22:12:27 Anxiety Reaction Anxiety Reaction Anxiety is the feeling we all get when we think something bad might happen. It is a normal response to stress and usually causes only a mild reaction. When anxiety becomes more severe, it can interfere with daily life. In some cases, you may not even be aware of what it is you re anxious about. There may also be a genetic link or it may be a learned behavior in the home. Both psychological and physical triggers cause stress reaction. It's often a response to fear or emotional stress, real or imagined. This stress may come from home, family, work, or social relationships. During an anxiety reaction, you may feel: Helpless Nervous Depressed Irritable Your body may show signs of anxiety in many ways. You may experience: Dry mouth Shakiness Dizziness Weakness Trouble breathing Breathing fast (hyperventilating) Chest pressure Sweating Headache Nausea Diarrhea Tiredness Inability to sleep Sexual problems Home care Try to locate the sources of stress in your life. They may not be obvious. These may include: oDaily hassles of life (such as traffic jams, missed appointments, or car troubles) oMajor life changes, both good (new baby or job promotion) and bad (loss of job or loss of loved one) oOverload: feeling that you have too many responsibilities and can't take care of all of them at once oFeeling helpless or feeling that your problems are beyond what you re able to solve Notice how your body reacts to stress. Learn to listen to your body signals. This will help you take action before the stress becomes severe. When you can, do something about the source of your stress. (Avoid hassles, limit the amount of change that happens in your life at one time and take a break when you feel overloaded). Unfortunately, many stressful situations can't be avoided. It is necessary to learn how to better manage stress. There are many proven methods that will reduce your anxiety. These include simple things like exercise, good nutrition, and adequate rest. Also, there are certain techniques that are helpful: oRelaxation oBreathing exercises oVisualization oBiofeedback oMeditation For more information about this, consult your healthcare provider or go to a local bookstore and review the many books and tapes available on this subject. Follow-up care If you feel that your anxiety is not responding to self-help measures, contact your healthcare provider or make an appointment with a counselor. You may need short-term psychological counseling and temporary medicine to help you manage stress. Call 911 Call 911 if any of these happen: Trouble breathing Confusion Drowsiness or trouble wakening Fainting or loss of consciousness Rapid heart rate Seizure New chest pain that becomes more severe, lasts longer, or spreads into your shoulder, arm, neck, jaw, or back When to seek medical advice Call your healthcare provider right away if any of these happen: Your symptoms get worse Severe headache not relieved by rest and mild pain reliever [phone] [employer]. [address] [place] [address]. All rights reserved. This information is not intended as a substitute for professional medical care. Always follow your healthcare professional's instructions. Follow Up Care 09/08/2021 21:33:27 With:PHIL GONCALVES Address: [address] [place] [address] [place] [address]- Business (1) When:2-4 days Comments:Follow-up with your doctor regarding anxiety for possible daily controller medications. Return if any worsening or concerning symptoms. [facility] Evaluation + Plan note No data available for this section [facility] Evaluation note Diagnosis Trismus- Primary Abnormal involuntary movements Anxiety state Anxiety state, unspecified documented in this encounter [facility] [employer] Phone: evaluation note* Diagnosis Swallowed foreign body, initial encounter- Primary [facility] Chest pain, unspecified type- Primary Opiate use Poisoning by opium (alkaloids), unspecified [facility]- Primary Attention deficit hyperactivity disorder (ADHD), unspecified ADHD type Screening for tuberculosis Screening examination for pulmonary tuberculosis Encounter for Hemoccult screening [facility] Diagnosis Foreign body ingestion, initial encounter- Primary Gastric foreign body, initial encounter Swallowed foreign body, initial encounter Current smoker Tobacco use disorder Mood disorder Unspecified episodic mood disorder Opioid dependence with opioid-induced disorder (HCC) Unspecified drug-induced mental disorder Marijuana use Cannabis abuse, unspecified Seizure (HCC) Other convulsions URI, acute- Primary Acute upper respiratory infections of unspecified site Exposure to COVID-19 virus Viral illness Unspecified viral infection, in conditions classified elsewhere and of unspecified site Encounter to obtain excuse from work documented in [facility] Discharge instructions No data available for this section [facility] Hospital Discharge instructions* Attachments The following attachments cannot be sent through Care Everywhere. * Anxiety Disorder (Swazi) * Cramp: Muscle ([place]) [facility] Discharge instructions* Attachments The following attachments cannot be sent through Care Everywhere. * Chest Pain Discharge Instructions (Swazi) * Drug Abuse and Drug Addiction Discharge Instructions ([place]) [facility] No data available for this section [facility] Summary Purpose Family History No Family History Records FoundNo Family History Records FoundNo Family History Records FoundNo Family History Records FoundNo Family History Records FoundNo Family History Records FoundNo Family History Records FoundNo Family History Records FoundNo Family History Records FoundNo Family History Records FoundNo Family History Records FoundNo Family History Records Found Advance Directives No Advanced Directives Records Found Date Activated Date Inactivated Comments 08/28/2023 7:14 PM 09/01/2023 6:33 PM Question Answer Comments Full Code Order Discussed With: Patient Date Activated Date Inactivated Comments 04/25/2023 8:29 AM 04/29/2023 5:00 PM Question Answer Comments Full Code Order Discussed With: Patient Date Activated Date Inactivated Comments 12/26/2022 3:13 PM 12/26/2022 7:02 PM Question Answer Comments Full Code Order Discussed With: Patient Additional Source Comments (unrecognized sect ion and content) No Status Records FoundNo Status Records FoundNo Status Records FoundNo Status Records FoundNo Status Records FoundNo Status Records FoundNo Status Records FoundNo Status Records FoundNo Status Records FoundNo Status Records FoundNo Status Records FoundNo Status Records Found INFORMATION SOURCE (unrecogn ized section and content) DATE CREATED AUTHOR 05/31/2020 [facility] DATE CREATED AUTHOR AUTHOR'S ORGANIZ ATION 07/24/2020 [facility] DATE CREATED AUTHOR AUTHOR'S ORGANIZ ATION 07/20/2021 [facility] DATE CREATED AUTHOR AUTHOR'S ORGANIZ ATION 08/17/2021 [facility] DATE CREATED AUTHOR AUTHOR'S ORGANIZ ATION 09/02/2021 [facility] DATE CREATED AUTHOR AUTHOR'S ORGANIZ ATION 10/08/2021 [facility] ([place] DATE CREATED AUTHOR AUTHOR'S ORGANIZ ATION 04/26/2023 [facility] DATE CREATED AUTHOR AUTHOR'S ORGANIZ ATION 05/01/2023 [facility] DATE CREATED AUTHOR AUTHOR'S ORGANIZ ATION 08/25/[address] [facility] DATE CREATED AUTHOR AUTHOR'S ORGANIZ ATION 09/01/2023 [facility] DATE CREATED AUTHOR AUTHOR'S ORGANIZ ATION 08/31/2024 [facility] DATE CREATED AUTHOR AUTHOR'S ORGANIZ ATION 12/26/2024 [facility] Source Comments (unrecognize d section and content) In the event this informatio n is protected by the Federal Confidentiality of Alcohol and Drug Abuse Patient Records regulations: The Federal rules restrict any use of the information to criminally investigate or prosecute any alcohol or drug abuse patient.[facility] Center[facility] the event this information is protected by the Federal Confidentiality of Alcohol and Drug Abuse Patient Records regulations: The Federal rules restrict any use of the information to criminally investigate or prosecute any alcohol or drug abuse patient.[facility] Center[facility] the event this information is protected by the Federal Confidentiality of Alcohol and Drug Abuse Patient Records regulations: The Federal rules restrict any use of the information to criminally investigate or prosecute any alcohol or drug abuse patient.[facility] the event this information is protected by the Federal Confidentiality of Alcohol and Drug Abuse Patient Records regulations: The Federal rules restrict any use of the information to criminally investigate or prosecute any alcohol or drug abuse patient.[facility] CenterIn the event this information is protected by the Federal Confidentiality of Alcohol and Drug Abuse Patient Records regulations: The Federal rules restrict any use of the information to criminally investigate or prosecute any alcohol or drug abuse patient.[facility] CenterIn the event this information is protected by the Federal Confidentiality of Alcohol and Drug Abuse Patient Records regulations: The Federal rules restrict any use of the information to criminally investigate or prosecute any alcohol or drug abuse patient.[facility] Center[facility] the event this information is protected by the Federal Confidentiality of Alcohol and Drug Abuse Patient Records regulations: The Federal rules restrict any use of the information to criminally investigate or prosecute any alcohol or drug abuse patient.[facility] CenterIn the event this information is protected by the Federal Confidentiality of Alcohol and Drug Abuse Patient Records regulations: The Federal rules restrict any use of the information to criminally investigate or prosecute any alcohol or drug abuse patient.[facility] Care Teams (unrecognized sec tion and content) Radiological Health Specialist Relationship Specialty Start Date End Date Juanjo Sea Jerzy OWUSU PCP - General Family Practice 10/26/12 Reason for Visit (unrecogniz ed section and content) Reason Comments Other Starting an hour ago patient was having difficulty opening his mouth, C/O lock jaw. Reason Onset Date Comments Foreign Body Ingestion 12/04/2022 Reason Comments Chest Pain Reason Onset Date Comments [facility] Hepatology - Follow-up 08/25/2024 HCV+ note Reason Comments Flu Like Symptoms Congestion, runny no se, chills, BUSH and ST x 3 days-exposed to COVID Reason Onset Date Comments Results 12/22/2024 Reason Comments Results Scheduled Active and Recently Administ ered Medications (unrecognized section and content) Medication Order 08/30/2021 08/31/2021 09/01/2021 LORazepam (ATIVAN) injection 2 mg (COMPLETED) 2 mg, IntraMUSCular, ONCE, 1 dose, On 09/01/21 at 1545 1601 (Given - Provid er: Andreas Gonzales RN) Scheduled Medication Order 08/20/2023 08/21/2023 08/22/2023 aspirin chewable tablet 324 mg (COMPLETED) 324 mg, Oral, Once, On 08/22/23 at 2105, For 1 dose 210 (Given - Provid er: Lorena Yost RN) traMADol (Ultram) tablet 100 mg (COMPLETED) 100 mg, Oral, Once, On Fri08/22/23 at 2105, For 1 dose 2105 (Given - Provid er: Lorena Yost RN) FOR RECORDS PERTAINING TO PATIENTS WHO ARE OR HAVE BEEN ENROLLED IN A CHEMICAL DEPENDENCY/SUBSTANCEABUSE PROGRAM, SOME INFORMATION MAY BE OMITTED. This clinical summary was aggregated from multiple sources. Caution should be exercised in using it in the provision of clinical care. This summary normalizes information from multiple sources, and as a consequence, information in this document may materially change the coding, format and clinical context of patient data. In addition, data may be omitted in some cases. CLINICAL DECISIONS SHOULD BE BASED ON THE PRIMARY CLINICAL RECORDS. [employer] provides no warranty or guarantee of the accuracy or completeness of information in this document.
--- NOTE | 2025-01-08 14:56 | EX.ED.DYSGE1 ---
HPI History of Present Illness Chief Complaint: Med Refill Narrative Narrative: Patient is a 34-year-old male with past medical history of opiate abuse who presents to the emergency department requesting Suboxone. He states that he was on Suboxone previously and had a provider in the ER in [place] give him this prescription and states that he was not taken on a regular basis and notes that he had some leftover. He states he has been clean for a extended period of time at this point time and he recently lost a few loved ones and his family and is having a lot of stress from this. He states that he is having the urge to use fentanyl again but states that he has not and would prefer to take the Suboxone to prevent this from happening. Patient otherwise has no complaints. PFSH PFSH Medical History no medical history Home Medications ?Medication ?Instructions ?Recorded ?Last Taken ?Type cephalexin 500 mg capsule 500 mg PO 4X/DAY 07/22/20 Unknown History sulfamethoxazole 800 1 tablet PO BID 07/22/20 Unknown History mg-trimethoprim 160 mg tablet buprenorphine 8 mg-naloxone 2 mg 1 film buccal DAILY 3 days #3 ea 01/08/25 Unknown Rx sublingual film (Suboxone) Allergy/AdvReac Type Severity Reaction Status Date / Time No Known Allergies Allergy Verified 01/08/25 13:00 Social History Smoking Status: Current every day smoker tobacco type: e-cigarettes ROS ROS ED ROS Narrative Constitutional: Denies fevers, chills, headaches Cardiovascular: Denies chest pain Respiratory: Denies shortness of breath Abdomen: Denies nausea vomit diarrhea : Denies urinary symptoms Neurological: Denies numbness, weakness, tingling Musculoskeletal: Denies back pain Skin: Denies any rashes or lesions EXAM Physical Exam Narrative Exam Narrative: General: Patient was lying in bed resting comfortably did not appear to be acute distress Head: Atraumatic, normocephalic Eyes: PERRL bilaterally, EOMI bilaterally, no conjunctival injection noted Neck: Soft, supple, trachea midline Cardiovascular: Regular rate and rhythm no murmurs gallops rubs are noted Respiratory: Clear to auscultation bilaterally no rales rhonchi or wheezes noted Abdomen: Soft, nondistended, no tenderness to palpation Extremities: +5/5 strength noted in the bilateral upper and lower EXTR, radial pulses +2/4 in the bilateral extremities, no pedal edema no exam Neurological: Patient follow commands knew that he was at [facility] year is 2024 Skin: Warm, dry, intact no rashes or lesions noted Const Vital Signs: 01/08/25 12:58 01/08/25 14:01 Temperature 98.6 F Temperature Source Oral Pulse Rate 94 Respiratory Rate 15 Respiratory Effort Normal Non-Labored Respiratory Pattern Normal Blood Pressure 106/71 Blood Pressure Mean 82 Pulse Ox 100 Oxygen Delivery Method Room Air MDM MDM MDM Narrative Medical decision making narrative: Patient is a 34-year-old male who presented to the emergency department the chief complaint of wanting Suboxone. Patient drug screen performed here and then be reevaluated Drug screen reviewed showed presumptive positive for amphetamines and cannabis. Discussed with the patient he will given a dose here in the emergency department he states that he was on 8 mg previously will give him this dose. He will be given another dose for tomorrow as well and he was referred to the addiction program for them to continue and manage this. He is agreeable this plan he is advised return with worsening symptoms or concerns. All questions were answered he is discharged home in stable condition. Lab Data Labs: Laboratory Results - last 24 hr 01/08/25 14:10 Urine Opiates Screen NEGATIVE U Buprenorphine Qual NEGATIVE Ur Oxycodone Screen NEGATIVE Urine Methadone Screen NEGATIVE Urine Fentanyl Screen NEGATIVE Ur Barbiturates Screen NEGATIVE Ur Phencyclidine Scrn NEGATIVE Ur Amphetamines Screen PRESUMPTIVE POSITIVE U Benzodiazepines Scrn NEGATIVE Urine Cocaine Screen NEGATIVE U Cannabinoids Screen PRESUMPTIVE POSITIVE Discharge Plan Triage Chief Complaint: Med Refill ED Provider: Castillo Jones Dx/Rx/DC Orders Clinical Impression: Substance abuse, Anxiety Prescriptions: New buprenorphine-naloxone [Suboxone] 8-2 mg film 1 film buccal DAILY 3 Days Qty: 3 0RF No Action sulfamethoxazole-trimethoprim 1 TABLET tablet 1 tablet PO BID cephalexin 500 MG capsule 500 mg PO 4X/DAY Primary Care Provider: Care Physician,No Primary Referrals: Callie Aldridge DO [Med Staff - Consulting] - Care Physician,No Primary [Primary Care Provider] - Activity Restrictions/Additional Instructions: Take the prescription as prescribed follow-up with the physician you are referred to to continue this medication and manage this. Return with worsening symptoms or any concerns Print Language: Czech Disposition Disposition: Home, Self Care
[2025-01-08 14:58] LABS: Barbiturate Urine NEGATIVE (< 200 ng/mL); Benzodiazepine Urine NEGATIVE (< 200 ng/mL); PCP Urine NEGATIVE (< 25 ng/mL); THC Urine PRESUMPTIVE POSITIVE (< 50 ng/mL)
[2025-01-08 15:51] VITALS: BP 117/86; PULSE 65; RESP 16; TEMP 37.1; O2SAT 95
== END 2025-01-08 15:56 | disposition home or self-care (01) ==
PROVIDERS: Emergency Provider Emergency Medicine; Visit Provider Emergency Medicine
DX: F11.10 Opioid abuse, uncomplicated (principal); Z76.0 Encounter for issue of repeat prescription; F17.290 Nicotine dependence, other tobacco product, uncomplicated; Z79.891 Long term (current) use of opiate analgesic; F41.9 Anxiety disorder, unspecified
CPT/HCPCS: 80307; 99282

== ENCOUNTER 2025-01-21 23:45 | Emergency (ER) | payer MEDICAID, SELFPAY ==
--- OUTSIDE RECORDS SUMMARY | 2024-12-21 15:25 | XMS RPT_ITS ---
Author Name Auto Generated Organization OHIP Care Team Providers Care Sheet Rock Finisher Name Role Phone GIA HILL Attending Unavailable NURSE, MALLORIE CARD Attending Unavailable NURSE, MALLORIE CARD Admitting Unavailable PROBLEMS DATE TYPE CONDITION / CODE ATTENDING STATUS [facility] 12/21/2024 Active URI, acute / J06.9(ICD-10) GIA HILL Active [facility] 12/21/2024 Active Exposure to COVI D-19 virus / Z20.822(ICD-10) GIA HILL Active [facility] 12/21/2024 Active Viral illness / B34.9(ICD-10) GIA HILL Active [facility] 08/03/2018 Active Attention-defici t hyperactivity disorder, unspecified type / F90.9(ICD-10) NURSE, MALLORIE CARD Active [facility] 08/24/2024 Active Imprisonment and other incarceration / Z65.1(ICD-10) NURSE, MALLORIE CARD Active [facility] 08/24/2024 Active Encounter for sc reening for respiratory tuberculosis / Z11.1(ICD-10) NURSE, MALLORIE CARD Active [facility] 08/24/2024 Active Encounter for sc reening for malignant neoplasm of colon / Z12.11(ICD-10) NURSE, MALLORIE CARD Active [facility] PROCEDURES No Procedure Records Found RESULTS CNPN Observed: 12/22/2024 12:00 AM Status: COMPLETED Source: [facility] Telephone ([facility]) KEKE PEMBERTON ([id number]) 1990 M Date Time Provider Department 12/22/24 NO PCP (HIST) [facility] During your visit today, we recorded the following information about you: Liz Newsome RN 12/22/2024 8:15 AM Signed Patient calling to ask for test results from 12/21/24. (COPIED) Component Ref Range AND Units 1 d ago (12/21/24) 1 yr ago (04/24/23) 1 yr ago (04/11/23) SARS-CoV-2 (Agent of COVID-19) RNA See comment Detected Abnormal Result given to patient. Patient has no further questions. [facility] care advise was discussed at recent Urgent Care visit and he has had this virus before. States he may call back to ask for fax request at a later time. Liz Newsome RN Allergies As of Date: 12/22/2024 (No Known Allergies) Date Reviewed: 09/01/2023 Reviewed by: Gabriella Virgen RN - Fully Assessed Reason for Visit: Results [95] Problem List As Of Date 12/22/2024 Noted Resolved Dislocation of shoulder, anterior, left, closed*11/05/2012 Swallowed foreign body [T18.9XXA] 12/04/2022 Ingestion of foreign body [T18.9XXA] 12/04/2022 Acute stress reaction [F43.0] 12/05/2022 Foreign body in stomach [T18.2XXA] 12/25/2022 Swallowed foreign body, sequela [T18.9XXS] 01/03/2023 Bipolar affective disorder, currently depressed*01/05/2023 Abscess of penis [N48.21] 04/25/2023 Diagnosed: 04/25/2023 Attention deficit hyperactivity disorder (ADHD)*12/18/2004 Diagnosed: 04/25/2023 Anxiety disorder [F41.9] 09/08/2021 Diagnosed: 04/25/2023 Current smoker [F17.200] 04/25/2023 Foreign body ingestion, initial encounter [T18.*08/28/2023 Mood disorder (HCC) [F39] 08/28/2023 Opioid dependence with opioid-induced disorder *08/28/2023 Marijuana use [F12.90] 08/28/2023 Seizure (HCC) [R56.9] 08/29/2023 Encounter Status:Closed by LIZ NEWSOME on 12/24/24 PROGRESS Observed: 12/21/2024 4:10 PM Status: COMPLETED Source: [facility] HNO ID: [id number] Author: GIA HILL APRN.METAL BONDING CRIB ATTENDANT Service: ? Author Type: Nurse Practitioner Type: Progress Notes Filed: 12/21/2024 16:23 Note Text: [facility] Subjective Keke Pemberton is a 34 year old male. Patient presents with: Flu Like Symptoms: Congestion, runny nose, chills, BUSH and ST x 3 days-exposed to COVID Flu Like Symptoms The patient is a 34-year-old male with a history of seizures, ADHD, and anxiety, presenting with symptoms of COVID-19. COVID-19 Symptoms: - Symptoms began a couple of days ago and have progressively worsened. - Reports congestion, rhinorrhea, chills, headache, sore throat, and myalgias. - Describes myalgias as feeling like he got hit by a board. - Positive at-home COVID-19 test; girlfriend also tested positive. - Received the [employer] Chance COVID-19 vaccine. - Denies emesis; reports mild nausea. - Denies interest in antiviral treatment. - Requires work note for today and tomorrow due to court appearance. Seizures: - No current medications for seizure management. ADHD: - No current medications mentioned. Anxiety: - No current medications mentioned. Lifestyle: - Smoker. PAST MEDICAL HISTORY Diagnosis Date ADHD (attention deficit hyperactivity disorder) PAST SURGICAL HISTORY Procedure Laterality Date NONE ALLERGIES Patient has no known allergies. MEDICATIONS No prescriptions on file. FAMILY HISTORY Problem Relation Age of Onset Cancer Mother Heart Father SOCIAL HISTORY[1] Review of Systems Constitutional: (+) chills Head: (+) headache Ears/Nose/Mouth/Throat: (+) nasal congestion, (+) rhinorrhea, (+) sore throat Gastrointestinal: (+) nausea, (-) vomiting Musculoskeletal: (+) myalgia Objective BP 110/70 Pulse 86 Temp 36.7 ?C (98.1 ?F) (Tympanic) Resp 16 Wt 62.7 kg (138 lb 3.7 oz) SpO2 99% BMI 19.28 kg/m? Physical Exam Vitals and nursing note reviewed. Constitutional: General: He is not in acute distress. Appearance: Normal appearance. He is not ill-appearing, toxic-appearing or diaphoretic. HENT: Head: Normocephalic and atraumatic. Right Ear: External ear normal. Left Ear: External ear normal. Nose: Congestion present. No rhinorrhea. Mouth/Throat: Mouth: Mucous membranes are moist. Pharynx: Oropharynx is clear. Posterior oropharyngeal erythema present. No oropharyngeal exudate. Eyes: General: Right eye: No discharge. Left eye: No discharge. Extraocular Movements: Extraocular movements intact. Conjunctiva/sclera: Conjunctivae normal. Pupils: Pupils are equal, round, and reactive to light. Cardiovascular: Rate and Rhythm: Normal rate and regular rhythm. Pulses: Normal pulses. Heart sounds: Normal heart sounds. No murmur heard. No friction rub. No gallop. Pulmonary: Effort: Pulmonary effort is normal. No respiratory distress. Breath sounds: Normal breath sounds. No stridor. No wheezing, rhonchi or rales. Chest: Chest wall: No tenderness. Abdominal: General: Abdomen is flat. There is no distension. Palpations: Abdomen is soft. There is no mass. Tenderness: There is no abdominal tenderness. There is no guarding or rebound. Hernia: No hernia is present. Musculoskeletal: General: No swelling, tenderness, deformity or signs of injury. Normal range of motion. Cervical back: Normal range of motion and neck supple. No rigidity or tenderness. Right lower leg: No edema. Left lower leg: No edema. Lymphadenopathy: Cervical: Cervical adenopathy present. Skin: General: Skin is warm and dry. Capillary Refill: Capillary refill takes less than 2 seconds. Coloration: Skin is not jaundiced or pale. Findings: No bruising, lesion or rash. Neurological: General: No focal deficit present. Mental Status: He is alert and oriented to person, place, and time. Cranial Nerves: No cranial nerve deficit. Sensory: No sensory deficit. Motor: No weakness. Coordination: Coordination normal. Gait: Gait normal. Deep Tendon Reflexes: Reflexes normal. Psychiatric: Mood and Affect: Mood normal. Behavior: Behavior normal. Thought Content: Thought content normal. { 1. URI, acute (J06.9) 2. Exposure to COVID-19 virus (Z20.822) 3. Viral illness (B34.9) - Acute viral upper respiratory infection with confirmed COVID-19 exposure and positive at-home test; symptoms include congestion, rhinorrhea, chills, headache, sore throat, myalgias, and nausea. - Discussed antiviral treatment option (Paxlovid) due to early presentation; patient declined. - Provided education on viral illness self-limiting nature. 4. Encounter to obtain excuse from work (Z02.89) - Provided work excuse note for today and tomorrow; will fax documentation to patient's cryolite recovery operator as requested. and Recording using Kensho software for draft documentation of the visit was discussed with the patient/authorized access services representative; all questions welcomed and answered. Patient/authorized access services representative agreed to proceed MDM Procedures [1] Social History Tobacco Use Smoking status: Every Day Current packs/day: 0.50 Types: Cigarettes Smokeless tobacco: Former Types: Chew Vaping Use Vaping status: Never Used Substance Use Topics Alcohol use: Not Currently Comment: occassional Drug use: Yes Types: Marijuana Comment: Hx of IV FLUABV+SARS-COV-2+RSV PNL RE SP JEWEL+PROBE Observed: 12/21/2024 3:55 PM Status: F Source: [facility] SARS-COV-2 (AGENT OF COVID-1 9) RNA: Detected INFLUENZA A RNA: Not detectedINFLUENZA B RNA: Not detectedRESPIRATORY SYNCYTIAL VIRUS (RSV) RNA: Not detected Performed By: #### [id number] # ### [facility] CLIA [id number] [address] [place] [address] [place] Observed: 12/21/2024 3:30 PM Status: COMPLETED Source: [facility] Office Visit ([facility]) KEKE PEMBERTON ([id number]) 1990 M Date Time Provider Department 12/21/24 3:30 PM GIA HILL During your visit today, we recorded the following information about you: Temperature Pulse Respiration Blood pressure 98.1 degrees 86/minute 16/minute 110/70 Weight 62.7 kg Gia Hill APRN.CNP 12/21/2024 4:23 PM Signed [facility] Subjective Keke Karen Nilay is a 34 year old male. Patient presents with: Flu Like Symptoms: Congestion, runny nose, chills, BUSH and ST x 3 days-exposed to COVID Flu Like Symptoms The patient is a 34-year-old male with a history of seizures, ADHD, and anxiety, presenting with symptoms of COVID-19. COVID-19 Symptoms: - Symptoms began a couple of days ago and have progressively worsened. - Reports congestion, rhinorrhea, chills, headache, sore throat, and myalgias. - Describes myalgias as feeling like he got hit by a board. - Positive at-home COVID-19 test; girlfriend also tested positive. - Received the [employer] COVID-19 vaccine. - Denies emesis; reports mild nausea. - Denies interest in antiviral treatment. - Requires work note for today and tomorrow due to court appearance. Seizures: - No current medications for seizure management. ADHD: - No current medications mentioned. Anxiety: - No current medications mentioned. Lifestyle: - Smoker. PAST MEDICAL HISTORY Diagnosis Date ADHD (attention deficit hyperactivity disorder) PAST SURGICAL HISTORY Procedure Laterality Date NONE ALLERGIES Patient has no known allergies. MEDICATIONS No prescriptions on file. FAMILY HISTORY Problem Relation Age of Onset Cancer Mother Heart Father SOCIAL HISTORY[1] Review of Systems Constitutional: (+) chills Head: (+) headache Ears/Nose/Mouth/Throat: (+) nasal congestion, (+) rhinorrhea, (+) sore throat Gastrointestinal: (+) nausea, (-) vomiting Musculoskeletal: (+) myalgia Objective BP 110/70 Pulse 86 Temp 36.7 ?C (98.1 ?F) (Tympanic) Resp 16 Wt 62.7 kg (138 lb 3.7 oz) SpO2 99% BMI 19.28 kg/m? Physical Exam Vitals and nursing note reviewed. Constitutional: General: He is not in acute distress. Appearance: Normal appearance. He is not ill-appearing, toxic-appearing or diaphoretic. HENT: Head: Normocephalic and atraumatic. Right Ear: External ear normal. Left Ear: External ear normal. Nose: Congestion present. No rhinorrhea. Mouth/Throat: Mouth: Mucous membranes are moist. Pharynx: Oropharynx is clear. Posterior oropharyngeal erythema present. No oropharyngeal exudate. Eyes: General: Right eye: No discharge. Left eye: No discharge. Extraocular Movements: Extraocular movements intact. Conjunctiva/sclera: Conjunctivae normal. Pupils: Pupils are equal, round, and reactive to light. Cardiovascular: Rate and Rhythm: Normal rate and regular rhythm. Pulses: Normal pulses. Heart sounds: Normal heart sounds. No murmur heard. No friction rub. No gallop. Pulmonary: Effort: Pulmonary effort is normal. No respiratory distress. Breath sounds: Normal breath sounds. No stridor. No wheezing, rhonchi or rales. Chest: Chest wall: No tenderness. Abdominal: General: Abdomen is flat. There is no distension. Palpations: Abdomen is soft. There is no mass. Tenderness: There is no abdominal tenderness. There is no guarding or rebound. Hernia: No hernia is present. Musculoskeletal: General: No swelling, tenderness, deformity or signs of injury. Normal range of motion. Cervical back: Normal range of motion and neck supple. No rigidity or tenderness. Right lower leg: No edema. Left lower leg: No edema. Lymphadenopathy: Cervical: Cervical adenopathy present. Skin: General: Skin is warm and dry. Capillary Refill: Capillary refill takes less than 2 seconds. Coloration: Skin is not jaundiced or pale. Findings: No bruising, lesion or rash. Neurological: General: No focal deficit present. Mental Status: He is alert and oriented to person, place, and time. Cranial Nerves: No cranial nerve deficit. Sensory: No sensory deficit. Motor: No weakness. Coordination: Coordination normal. Gait: Gait normal. Deep Tendon Reflexes: Reflexes normal. Psychiatric: Mood and Affect: Mood normal. Behavior: Behavior normal. Thought Content: Thought content normal. { 1. URI, acute (J06.9) 2. Exposure to COVID-19 virus (Z20.822) 3. Viral illness (B34.9) - Acute viral upper respiratory infection with confirmed COVID-19 exposure and positive at-home test; symptoms include congestion, rhinorrhea, chills, headache, sore throat, myalgias, and nausea. - Discussed antiviral treatment option (Paxlovid) due to early presentation; patient declined. - Provided education on viral illness self-limiting nature. 4. Encounter to obtain excuse from work () - Provided work excuse note for today and tomorrow; will fax documentation to patient's cryolite recovery operator as requested. and Recording using Kensho software for draft documentation of the visit was discussed with the patient/authorized access services representative; all questions welcomed and answered. Patient/authorized access services representative agreed to proceed MDM Procedures [1] Social History Tobacco Use Smoking status: Every Day Current packs/day: 0.50 Types: Cigarettes Smokeless tobacco: Former Types: Chew Vaping Use Vaping status: Never Used Substance Use Topics Alcohol use: Not Currently Comment: occassional Drug use: Yes Types: Marijuana Comment: Hx of IV Allergies As of Date: 12/21/2024 (No Known Allergies) Date Reviewed: 09/01/2023 Reviewed by: Gabriella Virgen RN - Fully Assessed Reason for Visit: Flu Like Symptoms [267] Cmt: Congestion, runny nose, chills, BUSH and ST x 3 days-exposed to COVID Primary Visit Diagnosis:URI, acute [J06.9] Other Visit Diagnoses:Exposure to COVID-19 virus [Z20.822] Viral illness [B34.9] Encounter to obtain excuse from work [] Order(s):STREP A MOLECULAR (POC) [2612319] Order #: [id number] COVID AND INFLUENZA A/B AND RSV PCR, ROUTINE [SQCVFLRS] Order #: [id number]. #:[id number] Problem List As Of Date 12/21/2024 Noted Resolved Dislocation of shoulder, anterior, left, closed*11/05/2012 Swallowed foreign body [T18.9XXA] 12/04/2022 Ingestion of foreign body [T18.9XXA] 12/04/2022 Acute stress reaction [F43.0] 12/05/2022 Foreign body in stomach [T18.2XXA] 12/25/2022 Swallowed foreign body, sequela [T18.9XXS] 01/03/2023 Bipolar affective disorder, currently depressed*01/05/2023 Abscess of penis [N48.21] 04/25/2023 Diagnosed: 04/25/2023 Attention deficit hyperactivity disorder (ADHD)*12/18/2004 Diagnosed: 04/25/2023 Anxiety disorder [F41.9] 09/08/2021 Diagnosed: 04/25/2023 Current smoker [F17.200] 04/25/2023 Foreign body ingestion, initial encounter [T18.*08/28/2023 Mood disorder (HCC) [F39] 08/28/2023 Opioid dependence with opioid-induced disorder *08/28/2023 Marijuana use [F12.90] 08/28/2023 Seizure (HCC) [R56.9] 08/29/2023 Letter Text Encounter Status:Closed by GIA HILL on 12/21/24 PROGRESS NOTES Observed: 08/26/2024 6:55 PM Status: COMPLETED Source: [facility] Nurse to pod to read PPD Reading of 0.0mm Results added in patients chart. PROGRESS NOTES Observed: 08/26/2024 12:27 PM Status: COMPLETED Source: [facility] Pt reports he had blood in h is stool last 2 days. No other symptoms. Will pend occult blood. PROGRESS NOTES Observed: 08/26/2024 10:13 AM Status: COMPLETED Source: [facility] Nurse to pod to read PPD, sudha bustillos is off the unit at court. TOXICOLOGY SCREEN, UNCONFIRMED Collected: 08/26/2024 6:52 AM Status: F Source: [facility] Order Comment: This toxicolo gy screen provides unconfirmed analytical results suitable for clinical management. Results are reported as positive (at or above the cutoff) or negative (below the cutoff). Amphetamines 1000 ng/mL Barbiturates 200 ng/mL Methadone 300 ng/mL Opiates 300 ng/mL Oxycodone 100 ng/mL Fentanyl 1 ng/mL Hydrocodone 100 ng/mL Benzodiazepines 200 ng/mL Cocaine Metabolite 300 ng/mL PCP 25 ng/mL THC 50 ng/mL Buprenorphine 5 ng/mL Alcohol 10 mg/dL TYPE CODE TESTS RESULT OUT OF RANGE REFERENCE UNITS LAB AMPH AMPH Negative Negative LAB BARBIT BARBIT Negative Negative LAB METHADON METHADONE Negative Negative LAB OPIATE OPIATE Negative Negative LAB cy OXYCODONE Negative Cutoff: 100 ng/mL Result Comment: Oxycodone an d metabolites of Oxycodone (Oxymorphone, Noroxycodone, and Noroxymorphone) are measured/detected in this assay method. LAB FENTSCUR FENTANYL Negative Negative ng/mL LAB HYDROCODONE GC/MS (PM) HYDROCODONE (PM) Negative Negative LAB BENZO BENZO Negative Negative LAB COCAINE CL COCAINE CL Negative Negative LAB PHENCYCL PHENCYCL Negative Negative LAB THC CL THC CL Negative Negative LAB norbupre BUPRENORPHINE Negative Cutoff: 5 ng/mL LAB gR ALCOHOL Negative Cutoff: 10 mg/dL Performed By: #### TOX SC ## ## [facility] [address] [place] [address], [id number] PROGRESS Observed: 08/25/2024 1:42 PM Status: COMPLETED Source: [facility] HNO ID: [id number] Author: RANDEE FLOREZ RPh Service: ? Author Type: Pharmacist Type: Progress Notes Filed: 08/25/2024 13:47 Note Text: Chart review reveals a recent lab test performed at [facility]. Unexpected results found as part of testing for Hepatitis C (HCV) HCV RNA Date Value Ref Range Status 04/25/2023 HCV RNA detected by PCR. (A) HCV RNA not detected by PCR. Final HCV RNA (IU/mL) Date Value Ref Range Status 04/25/2023 6,860 (H) IU/mL Final Ordering Provider is outside provider (lab requisition) Lab result shows patient has Chronic Hepatitis C B18.2 Prior Treatment: not known Allergies: No Known Allergies GT needs to be determined HCV Treatment plan: -Candidate for treatment: patient may be eligible for treatment but is not connected to care with [facility] provider PLAN: Unable to follow up with patient about abnormal lab result since patient does not follow [facility] provider. Recommend patient establish and follow up with own provider to discuss HCV treatment. If patient were to express interest in being evaluated for HCV treatment, please place referral to [facility] Ambulatory [facility]. Engage this patient in a conversation about the value in getting treatment then place the referral. To find the referral order, type pharmacy in the order and choose [facility] to [facility] - it's the third one down under procedures (referral [id number]). I will get the referral once this order is signed and would manage your patient's HCV care including ordering labs, complying with insurance formulary, creating a treatment plan and following patient until final viral load (SVR12) so we can document cure. [facility] PROGRESS NOTES Observed: 08/24/2024 4:43 PM Status: COMPLETED Source: [facility] 08/24/24 1613 Pain C/O Pain? No Numeric Pain Scale Pain Score 0 Dental Dental issues? No Respiratory Respiratory WNL Cardiovascular Cardiovascular WNL Neurological / Neuromuscular Neurological / Neuromuscular WNL Gastrointestinal Gastrointestinal WNL Genitourinary Genitourinary WNL Integumentary Integumentary WNL Suicide Screen Assessment Wished you were ? No Thoughts of killing/harming yourself? No Fall Risk Assessment (Adult) Age 0 Fall History (past 6 months) 0 Incontinence, Bowel AND Bladder 0 Urgency / Frequency 0 Medications 0 Patient Care Equipment 0 Mobility (Assistance) 0 Mobility (Gait) 0 Mobility (Sensory Deficit) 0 Cognition (Awareness) 0 Cognition (Impulsiveness) 0 Cognition (Limitations) 0 Fall Risk Score 0 Fall Risk Level (Adult) Low Risk Fall Interventions (Adult) Low Risk Interventions (Adult) Basic safety interventions initiated 14 Day Health Assessment Assesment completed? Y Date completed? 08/24/24 Focused Assessment? Focused Assessment? No ..Patient/Inmate Health Assessment Keke Pemberton, 34 year old male, is admitted to [facility]. This is the admission within the last 12 months. Patient/inmate is being seen today for 14 Day Health Assessment. Additional clinical concerns today: .Inmate is a AND o x 3 able to make needs known. Inmate denies any pain or distress denies SI/HI . Inmate states that he has a hx of opioid use and that he had a script of Suboxone from [facility] and [facility] last took one a week ago his story is inconsistence , urine collected for tox screen . Inmate has multiple ER visits for Psych Psych consult in place and SW well check Addiction medicine will be notified. Inmate has no active medication Tb given in right forearm. No other concern at this time. All receiving screen information reviewed including communicable diseases, chronic diseases and mental health evaluation. History Patient Active Problem List: Attention deficit hyperactivity disorder (ADHD) [F90.9] Past Medical History: Diagnosis Date ATTENTION DEFICIT DISORDER HYPERACTIVE concerta 54 mg, and 18 mg at noon, clonidine at nite. BIPOLAR D/O NOS (HCC) No past surgical history on file. Immunization History Administered Date(s) Administered TST-PPD, intradermal (PPD) (CVX=96) 08/24/2024 Health Maintenance Topic Date Due Tdap Booster Never done Hepatitis A (HAV) Vaccine (1 of 2 - Risk 2-dose series) Never done Hepatitis B (HBV) Vaccine (1 of 3 - 19+ 3-dose series) Never done COVID-19 Vaccine ( - 2023- season) Never done HPV Vaccine (optional start 27-45 years) 2017 Shingles (RZV) Vaccine (1 of 2) 2040 Hepatitis C Antibody Completed HIV Test Completed Pneumococcal Vaccine(s) Aged Out Physical findings On 01/05/2009 the vital signs were as follows: pulse 72, blood pressure 124/74. Pulse 78 Temp 98 ???F (36.7 ???C) Resp 18 Ht 5' 11 (1.803 m) Wt 163 lb (73.9 kg) SpO2 99% BMI 22.73 kg/m??? Physical Exam No data to display No results found for this or any previous visit (from the past 07507 hours). BMP (last 3 years, up to 8 values) No lab values to display. Lab Results Component Value Date HBA1C 5.1 04/25/2023 No results found for: HIVLOAD ASSESSMENT/PLAN 1. Inmate in correctional facility (primary diagnosis) - 2. Attention deficit hyperactivity disorder (ADHD), unspecified ADHD type - 3. Screening for tuberculosis - Last notes from admission, hospital or emergency department discharge summaries, or primary care visits were reviewed, if available at the time of the health assessment. CareEverywhere immunizations, allergies, problem list were reviewed and reconciled with internal records. Receiving screen was reviewed and any interim acute care provided during admission. Clinical concerns: Documentation of health assessment completed for licensed independent provider review Diagnostic and therapeutic orders pended for licensed independent provider review and completion Oral hygiene and preventative oral education provided Patient/inmate questions answered, franklin education provided: Inmate educated on the [employer] system Admission problem list updated to reflect review and clinical findings Dot Lara RN PROGRESS NOTES Observed: 08/24/2024 2:09 PM Status: COMPLETED [facility] Kam Lundberg RN reviewed patient chart 08/24/2024 2:10 PM. ED/Observation/Admission last year? Yes. 08/28/2023 Foreign Body Ingestion Psych History/Suicidal Ideation? Yes. Bipolar, History swallowing razor blades and batteries, Anxiety Disorder ADHD Tox Screen 08/29/2023 Positive Cannabinoids, Opiates, Benzos Were they admitted IP for this? Yes Last 04/25/2023 Have they ever been incarcerated before at [facility]? No STI's/HIV Hx? Yes Hep C positive 04/25/2023 TB up to date? No List of current medications (dose and frequency): None on file Any referrals placed? Yes. Psych: Bipolar, history swallowing razor blades, batteries ALLERGIES DATE TYPE / CODE NAME / CODE REACTION SEVERITY SOURCE Drug Class/[id number](SNO MED CT) NO KNOWN ALLERGIES [facility] ENCOUNTERS ADMIT/DISCHARGE ACCOUNT NUMBER ADMITTING ENCOUNTER CLASS LOCATION SOURCE 12/21/2024/12/22/19 25 [id number] Ambulatory [facility] HospitalBuil ding:JERRY [facility] 08/24/2024/08/28/19 25 [id number] NURSE, MALLORIE CARD Ambulatory [facility] uildin [facility] PAYERS ENCOUNTER GUARANTOR PAYER SUBSCRIBER SOURCE 12/21/2024 Primary Insurance[place] MEDICAIDPolicy Number: [id number] Date:[id number] Name:Naomy PEMBERTONDOB: [id number] [place] [address] [facility] 08/24/2024 KEKE KAUR: [employer] [address] [place] [id number]: (HP) Primary [facility] Number: [id number] Date:2024-08-242024-08-27 KEKE KAUR: [id number] [address] [place] [place] [id number]: (HP) [facility]
[2025-01-21 23:46] VITALS: BP 132/88; PULSE 65; RESP 14; TEMP 36.6; O2SAT 100; BMI 21.9
--- NOTE | 2025-01-22 00:42 | EKG12_ITS ---
Test Reason : O Blood Pressure : */* mmHG Vent. Rate : 87 BPM Atrial Rate : 87 BPM P-R Int : 152 ms QRS Dur : 90 ms QT Int : 332 ms P-R-T Axes : 80 90 66 degrees QTcB Int : 399 ms Normal sinus rhythm Rightward axis Borderline ECG Confirmed by MEGAN OCAMPO ([id number]), news copy editor DANIAL CUELLAR ([id number]) on 01/24/2025 8:58:14 AM Referred By: Confirmed By: MEGAN OCAMPO
--- NOTE | 2025-01-22 01:01 | ED.RN ---
PT. REPORTED I HAVE TO DEAL WITH SOMETHING WITH MY KID. I AM LEAVING. LEFT WITHOUT SEEING A PROVIDER AT 0101.
== END 2025-01-22 01:01 | disposition left against medical advice (07) ==
LOC: ED 01-22 01:04
DX: Z53.21 Procedure and treatment not carried out due to patient leaving prior to being seen by health care provider (principal)
CPT/HCPCS: 93005

== ENCOUNTER 2025-01-26 07:45 | Emergency (ER) | payer MEDICAID, SELFPAY ==
[2025-01-26 07:46] VITALS: BP 125/62; PULSE 63; RESP 18; TEMP 36.2; O2SAT 100; BMI 21.4
--- NOTE | 2025-01-26 08:09 | EKG12_ITS ---
Test Reason : PALP Blood Pressure : */* mmHG Vent. Rate : 68 BPM Atrial Rate : 68 BPM P-R Int : 158 ms QRS Dur : 94 ms QT Int : 364 ms P-R-T Axes : 74 87 66 degrees QTcB Int : 387 ms Normal sinus rhythm Normal ECG Confirmed by Junior Das ([id number]), newspaper copy editor DANIAL CUELLAR ([id number]) on 01/28/2025 7:14:20 AM Referred By: RU Confirmed By: Junior Das
--- NOTE | 2025-01-26 08:09 | ED.VIS.CHEST ---
HPI History of Present Illness Chief Complaint: Palpitations Detail of Chief Complaint: Chest pain and palpitations Informant: patient Narrative Narrative: Patient presents with chest pain and palpitations that been going on for at least 6 months. States he was seen a few days ago in the emergency department and had an EKG that was unremarkable. Patient is concerned because his father had heart disease and patient believes he may have had heart attacks in his 30s but does not know if he had any heart stents as patient's father is currently . Patient denies recent travel or surgery. Denies recent illness. He describes at times having numbness and tingling in his right arm. He complains of exertional dyspnea at times. He has not taken his pulse when these palpitations are occurring and they can last up to an hour. PFSH PFSH Medical History no medical history Home Medications ?Medication ?Instructions ?Recorded ?Last Taken ?Type lorazepam 1 mg tablet (Ativan) 1 mg PO TID PRN anxiety #10 tabs 01/26/25 Unknown Rx Allergy/AdvReac Type Severity Reaction Status Date / Time No Known Allergies Allergy Verified 01/26/25 07:46 Social History Smoking Status: Current every day smoker tobacco type: e-cigarettes ROS ROS ED Review of Systems ROS Unobtainable: other Constitutional Constitutional ED: Reports lethargy; Denies chills, fever(s), sweats or weight loss Eyes Eyes: Denies blurry vision, change in vision or diplopia ENT ENT ED: Denies rhinorrhea or sore throat Cardiovascular Cardiovascular: Reports chest pain, palpitations and racing heartbeat; Denies orthopnea Respiratory/Chest Respiratory/Chest: Reports dyspnea and dyspnea on exertion; Denies cough, orthopnea or sputum Gastrointestinal Gastrointestinal: Denies abdominal pain, diarrhea, nausea or vomiting Genitourinary Genitourinary ED: Denies dysuria, hematuria or urinary frequency Musculoskeletal Musculoskeletal: Denies arthralgias, back pain, myalgias or neck pain Integumentary Denies abscess, Abrasions or rash Neurologic Neurologic: Denies headache(s) or weakness Psychiatric Psychiatric: Denies anxiety, depression or suicidal thoughts Endocrine Endocrinology: Denies polydipsia, polyphagia or polyuria Hematologic/Lymphatic Hematologic/Lymphatic: Denies easy bleeding, easy bruising or lymphadenopathy Allergic/Immunologic Allergic/Immunologic ED: Denies mouth swelling, tongue swelling or urticaria EXAM Physical Exam Const Vital Signs: 01/26/25 07:46 01/26/25 08:09 01/26/25 08:27 Temperature 97.1 F L Temperature Source Temporal Pulse Rate 63 Respiratory Rate 18 Respiratory Effort Normal Non-Labored Respiratory Pattern Normal Blood Pressure 125/62 H Blood Pressure Mean 83 Pulse Ox 100 Oxygen Delivery Method Room Air 01/26/25 08:45 Temperature Temperature Source Pulse Rate 70 Respiratory Rate 15 Respiratory Effort Respiratory Pattern Blood Pressure 129/73 H Blood Pressure Mean 91 Pulse Ox 100 Oxygen Delivery Method Room Air Positive well nourished and well developed General Appearance ED: well developed and NAD HEENT Reports TM's clear and moist mucous membranes normocephalic and atraumatic; Negative for trauma or tenderness Tympanic Membrane ED: Yes TM's clear Eyes PERRL and EOMs intact bilaterally General Eye ED: Negative for pale conjunctiva or scleral icterus Neck no lymphadenopathy, supple and no JVD General: Negative for tenderness Chest Wall inspection of chest normal and palpation of chest normal Chest: Negative for tenderness Resp normal respiratory effort and clear to auscultation bilaterally Effort and Inspection: Negative for respiratory distress or pain with movement Auscultation: Negative for rhonchi, wheezes or diminished lung sounds Cardio regular rate, regular rhythm, S1 normal heart sound, S2 normal heart sound and no murmurs Peripheral Pulses: pulses 2+ throughout GI normal to inspection, nondistended, normoactive bowel sounds, soft to palpation, non-tender, non-distended and no masses Back/Spine no CVA tenderness and no thoracic nor lumbar tenderness Extremity normal to inspection General Extremety ED: Negative for edema General Extremity: Negative for edema Neuro oriented x3, CN's II-XII intact bilaterally, no sensory deficits noted and gait normal Sensorium / Orientation: awake, alert, oriented to person, oriented to place and oriented to time Motor Exam: strength 5/5 throughout and strength abnormal Psych mental status grossly normal Skin no rashes or lesions noted and no wounds MDM MDM MDM Narrative Medical decision making narrative: Patient presents with palpitations and chest pain and shortness of breath. Some history of anxiety that is currently not being treated. Does not see a primary care physician. No significant risk factors for coronary artery disease other than possibly family history however this is not clear. EKG obtained arrival shows sinus rhythm with rate of 68 bpm with no acute ST segment changes and no evidence of ectopy. CBC with differential was normal. Chemistry is normal. Troponin is less than 6. D-dimer was normal. Chest x-ray unremarkable. This point discussed with patient the results. Will order as needed Ativan and he did asked that I give him a prescription for an albuterol inhaler as he has been diagnosed with asthma and does not currently have 1. Patient will be referred to primary care physician for follow-up. Suspect component of anxiety. Low suspicion for significant cardiac dysrhythmia Lab Data Attestation: I reviewed the patient's lab results. Labs: Laboratory Results - last 24 hr 01/26/25 08:20 WBC 7.4 RBC 4.94 Hgb 15.0 Hct 45.3 MCV 91.7 MCH 30.4 MCHC 33.1 RDW Std Deviation 42.3 RDW Coeff of Rad 12.5 Plt Count 206 MPV 9.7 Immature Gran % (Auto) 0.300 Neut % (Auto) 44.5 L Lymph % (Auto) 36.0 [place] % (Auto) 12.3 H Eos % (Auto) 6.4 H Baso % (Auto) 0.5 Absolute Neuts (auto) 3.3 Absolute Lymphs (auto) 2.66 Nucleated RBC % 0 D-Dimer Quant (PE/DVT) 0.27 Sodium 139 Potassium 3.8 Chloride 104 Carbon Dioxide 26.0 Anion Gap 9 BUN 17 Creatinine 0.74 Estim Creat Clear Calc 130.85 Est GFR (MDRD) Non-Af 122 BUN/Creatinine Ratio 22.9 H Glucose 117 H Calcium 9.0 Troponin T High Sens < 6 Radiography Diagnostic Testing: Clinical Impression(s) from Imaging Studies Chest X-Ray 01/26/25 08:25 IMPRESSION: No acute pulmonary process Reading Location: [id number] 1 view chest x-ray obtained interpreted by myself as no evidence of infiltrate or pneumothorax or acute disease process. Radiology in agreement EKG Initial EKG: Attestation: I personally reviewed and interpreted this EKG as follows: Comments: Sinus rhythm with rate of 68 bpm with no acute ST segment change Discharge Plan Triage Chief Complaint: Palpitations ED Provider: Aisha Alves Dx/Rx/DC Orders Clinical Impression: Anxiety, Palpitation, Chest pain Instructions: ED Anxiety Reaction, ED Chest Pain, Uncertain Cause, ED Heart Palpitations Prescriptions: New lorazepam [Ativan] 1 mg tablet 1 mg PO TID PRN (Reason: anxiety) Qty: 10 0RF Primary Care Provider: Care Physician,No Primary Referrals: Vasyl Lara MD [Med Staff - Photolith Operator, Family Practice] - 3-5 Days Care Physician,No Primary [Primary Care Provider, Medical] Print Language: Guatemalan Disposition Disposition: Home, Self Care
--- NOTE | 2025-01-26 08:25 | RAD_ITS ---
PROCEDURE: CHEST 1 VIEW (PORTABLE) 01/26/2025 REASON FOR EXAM: CHEST PAIN TECHNIQUE: 2 frontal views COMPARISON: 2019 FINDINGS: Hardware: EKG leads overlie the chest Heart: The heart size is normal. Lungs: The lungs are clear. Bones: The bones are unremarkable. Other: RAD/Chest 1 View (Portable) IMPRESSION: No acute pulmonary process Reading Location: [id number]
[2025-01-26 08:26] LABS: Hematocrit 45.3 % (40-54); Hemoglobin 15.0 g/dL (13.0-16.5); Immature Granulocytes Count 0.020 X10^3/uL (0.0-0.0); Mean Corp Hgb Conc 33.1 g/dL (32-36); Mean Corpuscular Volume 91.7 fL (80-94); Mean Platelet Vol. 9.7 fl (6.2-12.0); NRBC Flagged by Analyzer 0 % (0-5); Platelet Count 206 K/mm3 (150-450); RBC Distribution Width CV 12.5 % (11.6-14.6); RBC Distribution Width SD 42.3 fl (35.1-43.9); Red Blood Count 4.94 M/mm3 (4.6-6.2); White Blood Count 7.4 K/mm3 (4.4-11.0)
[2025-01-26 08:45] VITALS: BP 129/73; PULSE 70; RESP 15; O2SAT 100
[2025-01-26 08:50] LABS: Anion Gap 9 (5-15); BUN 17 mg/dL (4-19); BUN/Creat Ratio 22.9 RATIO (10-20); Calcium,Total 9.0 mg/dL (7.6-11.0); Carbon Dioxide 26.0 mmol/L (21.0-32.0); Chloride 104 mmol/L (98-108); Estimated Creatinine Clearance 130.85 ml/min (50-250); Glucose 117 mg/dL (70-99); Potassium 3.8 mmol/L (3.3-5.1); Troponin T High Sensitivity < 6 ng/L (<=22)
[2025-01-26 09:20] LABS: D-Dimer Quantitative (DVT/PE) 0.27 FEU/ug/m (0.27-0.49)
[2025-01-26 10:00] VITALS: BP 117/82; PULSE 65; O2SAT 100
[2025-01-26] MEDS: Albuterol Sulfate 8 gm Inhaler (60 puffs) 2 PUFF INHALATION (10:04)
[2025-01-26 10:06] VITALS: BP 117/82; PULSE 68; RESP 16; TEMP 36.7; O2SAT 100
[2025-01-26 10:07] VITALS: BP 117/82; PULSE 68; RESP 16; TEMP 36.7; O2SAT 100
== END 2025-01-26 10:07 | disposition home or self-care (01) ==
PROVIDERS: Emergency Provider Emergency Medicine; Visit Provider Emergency Medicine
DX: F41.9 Anxiety disorder, unspecified (principal); R07.9 Chest pain, unspecified; F17.290 Nicotine dependence, other tobacco product, uncomplicated; R06.09 Other forms of dyspnea; J45.909 Unspecified asthma, uncomplicated; R00.2 Palpitations
CPT/HCPCS: 71045; 80048; 84484; 85025; 85379; 93005; 99283

== ENCOUNTER 2025-02-02 16:21 | Emergency (ER) | payer MEDICAID, SELFPAY ==
[2025-02-02 16:22] VITALS: BP 133/85; PULSE 146; RESP 18; TEMP 36.8; O2SAT 99; BMI 21.5
--- NOTE | 2025-02-02 16:45 | EX.ED.DYSGE1 ---
HPI History of Present Illness Chief Complaint: Anxiety Narrative Narrative: 34-year-old male past medical history of anxiety presents with panic attacks and palpitations that he has been having for the last week. He relates history that he was seen in the emergency department on January 26, 8 days ago, and had workup for palpitations. He states that he is having increased panic attacks because one of his relatives recently. He had been given Ativan to take up to 3 times a day, 1 mg. He was only taking it once daily for his panic attacks and heart palpitations, but may have taken it 2 or 3 times on a day or 2. He is out of his medication currently, and states he does not have an appointment with his primary care provider until Friday, 5 days from now. [facility] Medical History Anxiety Home Medications ?Medication ?Instructions ?Recorded ?Last Taken ?Type lorazepam 1 mg tablet (Ativan) 1 mg PO TID PRN anxiety #10 tabs 01/26/25 Unknown Rx lorazepam 1 mg tablet (Ativan) 1 mg PO BID PRN anxiety #8 tabs 02/02/25 Unknown Rx Allergy/AdvReac Type Severity Reaction Status Date / Time No Known Allergies Allergy Verified 02/02/25 16:22 Social History Smoking Status: Current every day smoker tobacco type: e-cigarettes ROS ROS ED ROS Narrative Review of systems positive for heart palpitations, panic attacks. He feels his heart racing and becomes short of breath at times. Sometimes a few times a day. EXAM Physical Exam Narrative Exam Narrative: Afebrile. Vital signs noted. Nontoxic-appearing. Cardiovascular examination reveals mild tachycardia. Lungs clear to auscultation bilaterally. Abdomen soft nontender with positive bowel sounds. No guarding or rebound. Neurological examination nonfocal, nonlateralizing. Upon entering the room, he is using his electronic tablet, reclined on the cot. Const Vital Signs: 02/02/25 16:22 Temperature 98.2 F Temperature Source Oral Pulse Rate 146 H Respiratory Rate 18 Blood Pressure 133/85 H Blood Pressure Mean 101 Pulse Ox 99 Oxygen Delivery Method Room Air MDM MDM MDM Narrative Medical decision making narrative: I do not feel differential diagnosis is applicable here. We do feel that you are probably having more of a grief reaction and panic attacks. I reviewed his prior ED visit and he had workup for chest pain and palpitations. He had been written a prescription for Ativan 1 mg. He received 10 tablets. I had a lengthy discussion with the patient and he was told that further prescriptions for benzodiazepines needs to come from his primary care provider and not from the emergency department. While he will be given a prescription for 8 additional tablets, no further tablets should be written from the emergency department, but he could be started on hydroxyzine or an alternative medication. I do not feel that he requires further laboratory work or imaging as he had a chest x-ray within the last 7 days, and a workup for his heart palpitations. Disposition is discharged home in stable condition. History & Record Review Discussion w/independent historian: Patient Additional record(s) reviewed:: Prior ED visit Discharge Plan Triage Chief Complaint: Anxiety ED Provider: Juan Garrett Dx/Rx/DC Orders Clinical Impression: Anxiety, Palpitation Instructions: ED Anxiety Reaction, ED Heart Palpitations, ED Panic Attack Prescriptions: New lorazepam [Ativan] 1 mg tablet 1 mg PO BID PRN (Reason: anxiety) Qty: 8 0RF No Action lorazepam [Ativan] 1 mg tablet 1 mg PO TID PRN (Reason: anxiety) Qty: 10 0RF Primary Care Provider: Vasyl Lara Referrals: Vasyl Lara MD [Primary Care Provider, Family Practice] - 02/07/25 Activity Restrictions/Additional Instructions: Further prescriptions for benzodiazepines need to come from your primary care provider or a psychiatrist. Follow-up with your primary care provider on Friday as scheduled. Print Language: Romanian Disposition Disposition: Home, Self Care
[2025-02-02 16:52] VITALS: BP 133/85; PULSE 102; RESP 18; TEMP 36.8; O2SAT 99
== END 2025-02-02 16:57 | disposition home or self-care (01) ==
LOC: ED 16:54
PROVIDERS: Emergency Provider Emergency Medicine; PCP Family Medicine; Visit Provider Emergency Medicine
DX: F41.0 Panic disorder [episodic paroxysmal anxiety] (principal); R00.2 Palpitations; Z63.4 Disappearance and death of family member; F17.290 Nicotine dependence, other tobacco product, uncomplicated
CPT/HCPCS: 99282

== ENCOUNTER 2025-02-13 17:35 | Emergency (ER) | payer MEDICAID, SELFPAY ==
[2025-02-13 17:36] VITALS: BP 135/69; PULSE 75; RESP 16; TEMP 36.8; O2SAT 99; BMI 21.4
== END 2025-02-13 17:47 | disposition left against medical advice (07) ==
LOC: ED 17:54
PROVIDERS: PCP Family Medicine
DX: Z53.21 Procedure and treatment not carried out due to patient leaving prior to being seen by health care provider (principal)

== ENCOUNTER 2025-02-14 09:37 | Emergency (ER) | payer MEDICAID, SELFPAY ==
[2025-02-14 09:38] VITALS: BP 120/87; PULSE 67; RESP 16; TEMP 36.5; O2SAT 100; BMI 22.6
[2025-02-14 10:25] VITALS: BP 120/87; PULSE 67; RESP 16; TEMP 36.5; O2SAT 100
== END 2025-02-14 10:30 | disposition home or self-care (01) ==
LOC: ED 10:33
PROVIDERS: Emergency Provider Emergency Medicine; PCP Family Medicine; Visit Provider Emergency Medicine
DX: F11.23 Opioid dependence with withdrawal (principal); F41.9 Anxiety disorder, unspecified; F17.290 Nicotine dependence, other tobacco product, uncomplicated; Z79.899 Other long term (current) drug therapy
CPT/HCPCS: 99282

== ENCOUNTER 2025-03-10 12:56 | Emergency (ER) | payer MEDICAID, SELFPAY ==
[2025-03-10 12:57] VITALS: BP 141/81; PULSE 115; RESP 18; TEMP 36.6; O2SAT 97; BMI 21.1
--- NOTE | 2025-03-10 13:07 | EDS_ITS ---
HPI HPI - URI History of Present Illness Chief Complaint: Cold Sx Informant: patient Onset/Context/Timing Onset: Weeks (2) Context: Gradual Onset Timing: Continuous Quality: Congested Location: Chest and upper respiratory tract Worsened by: - (Nothing) Relieved by: - (Nothing) Associated Symptoms Associated Symptoms: Positive for Nasal Congestion, Headache, Myalgias, Nausea, Diarrhea, Shortness of Breath and Productive Cough; Negative for Sinus Pressure, Vomiting, Chest Pain, Nonproductive cough or Hemoptysis Narrative Narrative: Patient presents with dental pain that became worse yesterday. Patient states a piece of his right upper wisdom tooth broke off. Patient states that his left upper wisdom tooth has been broken for a while. Patient also admits to some upper respiratory congestion. Patient states he is coughing up some yellow sputum. Patient admits to mild headache. Patient also admits to some nausea but denies any vomiting. Patient admits to some diarrhea. Patient admits to general myalgias and shortness of breath. Patient states one of his children is sick at home. ROS ROS ED Constitutional Constitutional ED: Reports sweats; Denies chills or fever(s) Eyes Eyes: Denies blurry vision or change in vision ENT ENT ED: Reports rhinorrhea and sore throat Cardiovascular Cardiovascular: Denies chest pain or palpitations Respiratory/Chest Respiratory/Chest: Reports cough and dyspnea Gastrointestinal Gastrointestinal: Reports diarrhea and nausea; Denies vomiting Genitourinary Genitourinary ED: Denies dysuria or hematuria Musculoskeletal Musculoskeletal: Reports myalgias; Denies neck pain Integumentary Denies abscess or rash Neurologic Neurologic: Reports headache(s); Denies weakness Allergic/Immunologic Allergic/Immunologic ED: Denies mouth swelling or urticaria [facility] Medical History Opioid dependence Drug abuse in remission Anxiety Home Medications Medication Instructions Recorded Last Taken Type buprenorphine 8 mg-naloxone 2 mg 1 film buccal DAILY # 20 ea 02/14/25 Unknown Rx sublingual film (Suboxone) duloxetine 30 mg capsule,delayed 30 mg PO DAILY depres russ 02/14/25 Unknown History release hydroxyzine HCl 25 mg tablet 25 - 50 mg PO BID PRN anx iety 02/14/25 02/13/25 History lorazepam 0.5 mg tablet 0.5 mg PO DAILY PRN anxiety 02/14/25 02/12/25 History multivitamin 1 tab PO DAILY supplement 02/14/25 History cyclobenzaprine 5 mg tablet 5 mg PO TID muscle pain Unknown History duloxetine 20 mg capsule,delayed 20 mg PO TID 03/10/25 Unknown History release penicillin V potassium 500 mg 500 mg PO 4X/DAY #40 tab s 03/10/25 Unknown Rx tablet prednisone 10 mg tablet mg PO 03/10/25 Unknown Histo ry trazodone 50 mg tablet 25 - 50 mg PO QHS PRN PRN in somnia 03/10/25 Unknown History Allergy/AdvReac Type Severity Reaction Status Date / Time No Known Allergies Allergy Verified 02/14/25 09:38 Social History household members: significant other current occupational status: employed Smoking Status: Current every day smoker tobacco type: e-cigarettes EXAM Physical Exam Const Vital Signs: 03/10/25 12:57 Temperature 97.8 F Temperature Source Oral Pulse Rate 115 H Respiratory Rate 18 Blood Pressure 141/81 H Blood Pressure Mean 101 Pulse Ox 97 Oxygen Delivery Method Room Air Positive well nourished and well developed General Appearance ED: well developed and NAD HEENT Reports moist mucous membranes HEENT Narrative: There are dental caries noted over the upper premolars bilaterally. There is mild gingival edema around this tooth. There is no discharge or drainage. There is no fluctuance. There is no evidence of any abscess. There is no sublingual edema. There is no evidence of Arslan's angina. normocephalic Teeth and Gingiva: caries Throat: posterior oropharynx normal Neck General: Negative for anterior neck swelling Resp normal respiratory effort and clear to auscultation bilaterally Cardio Rate: regular rate Rhythm: regular rhythm GI non-tender and non-distended Palpation: soft Neuro oriented x3, CN's II-XII intact bilaterally and no sensory deficits noted Sensorium / Orientation: alert Motor Exam: strength 5/5 throughout Psych mental status grossly normal MDM MDM MDM Narrative Medical decision making narrative: Differential diagnosis includes pneumonia, bronchitis, viral illness, and infected dental caries. Chest x-ray will be obtained to assess for pneumonia or bronchitis. COVID-19, influenza, and RSV PCR will be obtained to assess for viral illness. Lab Data Attestation: I reviewed the patient's lab results. Lab results narrative: COVID-19 PCR was reviewed and was negative. Influenza PCR was reviewed and was negative for influenza A and influenza B. RSV PCR was reviewed and was negative. Radiography Chest X-Ray - ED: 2 View, Read by ED Physician, Read by Radiologist and No Acute Disease Diagnostic Testing: PA and lateral chest x-ray was obtained. There are 2 views. On my independent interpretation, lung patel are clear. There is normal cardiac silhouette. Bony thorax is normal. There is no acute process noted. Radiologist also interpreted the x-ray and agrees. Treatment and Re-Evaluation Narrative: Patient was advised of his findings. Patient was given a prescription for Pen- Vee K for his infected dental caries. Patient was instructed to drink plenty of fluids. Patient was instructed to take Tylenol or ibuprofen as needed for any pain or fevers. Patient was instructed to follow-up with his dentist in 5 to 7 days. Patient was also instructed to follow-up with his primary care physician in 5 to 7 days. Patient was instructed to return if worse in any way. Patient understood and was agreeable with the plan. All questions were answered. Discharge Plan Triage Chief Complaint: Cold Sx Other Complaint: Dental ED Provider: Vasyl Palm Dx/Rx/DC Orders Clinical Impression: Infected dental caries, Viral upper respiratory tract infection, Nicotine vapor product user Instructions: ED Dental Cavity, ED URI, Viral, No Abx (Adult) Prescriptions: New penicillin V potassium 500 mg tablet 500 mg PO 4X/DAY Qty: 40 0RF No Action lorazepam 0.5 mg tablet 0.5 mg PO DAILY PRN (Reason: anxiety) hydroxyzine HCl 25 mg tablet 25 - 50 mg PO BID PRN (Reason: anxiety) duloxetine 30 mg capsule,delayed release(DR/EC) 30 mg PO DAILY Rx Instructions: pt to take 1 tablet daily for 7-10 days starting 02/11/25, then increase to twice daily. multivitamin Tablet 1 tab PO DAILY buprenorphine-naloxone [Suboxone] 8-2 mg film 1 film buccal DAILY Qty: 20 0RF Rx Instructions: place 1 film on inside of (each) cheek prednisone 10 mg tablet PO trazodone 50 mg tablet 25 - 50 mg PO QHS PRN PRN (Reason: insomnia) cyclobenzaprine 5 mg tablet 5 mg PO TID duloxetine 20 mg capsule,delayed release(DR/EC) 20 mg PO TID Primary Care Provider: Vasyl Lara Referrals: Vasyl Lara MD [Primary Care Provider, [facility]] - 5-7 Days Print Language: New Zealander Disposition Disposition: Home, Self Care
--- NOTE | 2025-03-10 13:42 | RAD_ITS ---
PROCEDURE: CHEST PA AND LATERAL 03/10/2025 REASON FOR EXAM: COUGH TECHNIQUE: Procedure Code: RADCXR Modality: DX Procedure: CHEST PA AND LATERAL COMPARISON: January 26, 2025. FINDINGS: Hardware: None Heart: The heart size is normal. Mediastinum: The mediastinal contour is unremarkable. Lungs: Hyperinflation. The lungs are clear. Bones: The bones are unremarkable. RAD/Chest PA and Lateral IMPRESSION: Hyperinflation. The lungs are clear. Reading Location: [place] [id number]
[2025-03-10 14:54] VITALS: BP 119/81; PULSE 63; RESP 16; TEMP 36.6; O2SAT 97
== END 2025-03-10 14:55 | disposition home or self-care (01) ==
PROVIDERS: Emergency Provider Emergency Medicine; PCP Family Medicine; Visit Provider Emergency Medicine
DX: K04.7 Periapical abscess without sinus (principal); K02.9 Dental caries, unspecified; J06.9 Acute upper respiratory infection, unspecified; F41.9 Anxiety disorder, unspecified; Z79.899 Other long term (current) drug therapy; F17.290 Nicotine dependence, other tobacco product, uncomplicated
CPT/HCPCS: 71046; 87631; 99283

== ENCOUNTER 2025-03-17 20:51 | Emergency (ER) | payer MEDICAID, SELFPAY ==
[2025-03-17 20:52] VITALS: BP 115/82; PULSE 88; RESP 18; TEMP 37; O2SAT 100; BMI 21.5
--- NOTE | 2025-03-17 21:28 | ED.VIS.BACK ---
HPI History of Present Illness Chief Complaint: Back Informant: patient Onset/Context/Timing Onset: Today Context: Sudden Onset Injury: - (Bending over and coughing) Timing: Continuous Quality: Sharp Location: Thoracic Worsened by: improves with Movement and - (Deep breathing) Relieved by: Sitting (Sitting upright) Associated Symptoms Associated Symptoms: Negative for Numbness, Tingling, Radiation to Right Leg, Radiation to Left Leg, Fever, Abdominal Pain, Dysuria, Unable to Ambulate, Unable to Transfer, Urinary Retention, Urinary Incontinence, Constipation or Fecal Incontinence Narrative Narrative: Patient presents with pain in his left posterior thoracic area that began today. Patient states he is had a cough and upper respiratory infection for the past several days. Patient states he has been coughing a lot. Patient states that today he was bending over and started coughing. Patient states he felt a pop in his left posterior ribs. Patient states his pain is sharp. Patient states it is worse with deep breathing. Patient states it is better when he is able to sit up. Patient denies any radiation of the pain. Patient denies any fevers or chills. Patient states he is currently on penicillin for dental infection. [facility] Medical History Opioid dependence Drug abuse in remission Anxiety Home Medications ?Medication ?Instructions ?Recorded ?Last Taken ?Type multivitamin 1 tab PO DAILY supplement 02/14/25 02/14/25 History penicillin V potassium 500 mg 500 mg PO 4X/DAY #40 tabs 03/10/25 Unknown Rx tablet naproxen 500 mg tablet 500 mg PO BID PRN #20 tabs 03/17/25 Unknown Rx Allergy/AdvReac Type Severity Reaction Status Date / Time No Known Allergies Allergy Verified 03/17/25 20:54 Social History household members: significant other current occupational status: employed Smoking Status: Current every day smoker tobacco type: e-cigarettes ROS ROS ED Constitutional Constitutional ED: Denies chills or fever(s) Eyes Eyes: Denies blurry vision or change in vision ENT ENT ED: Reports rhinorrhea; Denies sore throat Cardiovascular Cardiovascular: Reports chest pain; Denies palpitations Respiratory/Chest Respiratory/Chest: Reports cough and dyspnea Gastrointestinal Gastrointestinal: Denies nausea or vomiting Genitourinary Genitourinary ED: Denies dysuria or hematuria Musculoskeletal Musculoskeletal: Reports back pain; Denies neck pain Integumentary Denies abscess or rash Neurologic Neurologic: Denies headache(s) or weakness Allergic/Immunologic Allergic/Immunologic ED: Denies mouth swelling or urticaria EXAM Physical Exam Const Vital Signs: 03/17/25 20:52 Temperature 98.6 F Temperature Source Temporal Pulse Rate 88 Respiratory Rate 18 Blood Pressure 115/82 H Blood Pressure Mean 93 Pulse Ox 100 Oxygen Delivery Method Room Air Positive well nourished and well developed Constitutional Narrative: BMI is 21.6. General Appearance ED: well developed and NAD HEENT Reports moist mucous membranes Neck supple and no JVD Resp normal respiratory effort and clear to auscultation bilaterally Cardio regular rate and regular rhythm GI soft to palpation and non-tender Back/Spine Back/Spine Narrative: There is tenderness over the left lower ribs posteriorly. There is no edema or ecchymosis. There is no bony crepitance or step-off noted. There is no subcutaneous emphysema palpated. Extremity normal to inspection Neuro oriented x3 and no sensory deficits noted Motor Exam: strength 5/5 throughout Psych mental status grossly normal MDM MDM MDM Narrative Medical decision making narrative: Differential diagnosis includes rib fracture, intercostal strain, pneumothorax, and thoracic back pain. X-rays of the left ribs will be obtained to assess for rib fracture and pneumothorax. Radiography Diagnostic Testing: Clinical Impression(s) from Imaging Studies Ribs w/Chest X-Ray 03/17/25 21:42 IMPRESSION: No acute rib fracture seen. Reading Location: [facility] X-rays of the left ribs were obtained. There are 3 views. On my independent interpretation, there is no acute fracture. There is no pneumothorax. There is no acute cardiopulmonary process. Radiologist also interpreted the x-rays and agrees. Treatment and Re-Evaluation Narrative: Patient was given injection of Toradol here. Patient was advised of his findings. Patient was advised that this is most likely a muscular strain. Patient was given a prescription for Naprosyn. Patient was instructed to use ice to the area. Patient was instructed to follow-up with his primary care physician in 5 to 7 days for further evaluation. Patient understood and was agreeable with the plan. All questions were answered. Discharge Plan Triage Chief Complaint: Back ED Provider: Vasyl Palm Dx/Rx/DC Orders Clinical Impression: Muscle strain of chest wall, Tobacco use Instructions: ED Chest Wall Strain Prescriptions: New naproxen 500 mg tablet 500 mg PO BID PRN Qty: 20 0RF No Action multivitamin Tablet 1 tab PO DAILY penicillin V potassium 500 mg tablet 500 mg PO 4X/DAY Qty: 40 0RF Primary Care Provider: Vasyl Lara Referrals: Vasyl Lara MD [Primary Care Provider, Family Practice] - 5-7 Days Print Language: Pashto Disposition Disposition: Home, Self Care
--- OUTSIDE RECORDS SUMMARY | 2025-03-17 21:36 | XMS RPT_ITS | CCD ---
Author Organization [facility] Informat ion Partnership GO GO DANCER [facility] Care Team Providers Care Potato Sorter Name Role Phone Sea Acevedo III Primary Care Provider PHIL GONCALVES MD Primary Care Physician Unavailable Primary Care Provider Unavailabl DENICE North Attending Unavailable Unavailable Primary Care Provider Unavailabl GABBI Gamez Attending UnavailSEA Ramires III Primary Care Unavail able CLARA KARIMI Attending Unavailable CLARA KARIMI Admitting Unavailable CELESTE PAUL Consulting Unavailable Unavailable Primary Care Provider UnavailSTEPHY Patel Referring Unavailable STEPHY GLOVER Attending Unavailable MIKAL PURVIS Attending Unavailable JUAN KENNY Consulting Unavailab RUBIA Donovan Referring Unavaila amilcar HERZOG, AMY J Admitting Unavailable EVA MUSA Referring Unavailable LAYNE DIAZ Attending Unavailable LAYNE DIAZ Admitting Unavailable HILLARY ETIENNE Referring Unavailable [facility] LAITF Attending Unavailable PENTECOSTALMELISSA BYRD Admitting Unavailable Unavailable Primary Care Provider Unavailabl e Unavailable Primary Care Provider Unavailabl e PROVIDER, UNKNOWN Attending Unavailable PROVIDER, UNKNOWN Admitting Unavailable Care Physician, No Primary Primary Care Provider Unavailable Dr. Castillo oJnes DO Emergency Provider Care Physician, No Primary Primary Care Physicia n Unavailable Dr. Castillo Jones DO Attending Physician Dr. Castillo Jones DO Emergency Department Physic joaquim Provider, Ed Physician Emergency Department Phys ician Unavailable Provider, Ed Physician Attending Physician Unava ilable Long STEEN, Dr. Leonard Emergency Department Physici an Marco MARCUS, Dr. Fallon Primary Care Physician Tami MARCUS, Juan Emergency Department Physician QUAN TAYLOR Attending Unavailable RUBIA HILL Attending Unavailable [facility], Vasyl Primary Care Unavailable Juan Garrett Attending Unavailable Care Physician, No Primary Primary Care Unava ilable Aisha Alves Attending Unavailable Castillo Jones Attending Unavailable Care Physician, No Primary Primary Care Unava ilable Provider, Ed Physician Attending Unavailab garcia Lara VS, Vasyl Primary Care Unavailable Provider, Ed Physician [facility], No Primary Primary Care Unava ilable Horacio Juarez Attending Unavailable [facility], Vasyl Primary Care Unavailable Care Physician, No Primary Primary Care Physicia n Unavailable Robert STEEN, Dr. Chong Attending Physician Dr. Castillo Jones DO Emergency Department Physic joaquim Provider, Ed Physician Attending Physician Unava ilable Provider, Ed Physician Emergency Department Phys ician Unavailable Long STEEN, Dr. Leonard Attending Physician Dr. Aisha Alves DO Emergency Department Physici an Dr. Vasyl Lara MD Primary Care Physician Juan Garrett MD Attending Physician [phone] Tami MARCUS, Juan Emergency Department Physician Dr. Horacio Juarez MD Attending Physician Dr. Horacio Juarez MD Emergency Department Phys ician Allergies Allergy Classification Reported Allergen(s) Allergy Type Date of Onset Reaction(s) Facility (2 sources) diphenhydrAMINE; Translations: [diphenhydramine] Drug Allergy [facility] Medications Current Medications Medication Drug Class(es) [...] Comment on above: Take 2 tablets by [facility] every 4 hours as needed. FOR PAIN. buprenorphine 8 mg / naloxon e 2 mg sublingual film (8 sources) Partial Opioid Agonist, Opioid Antagonist Start: 02-14-2025 Start: 01-08-2025 End: 01-26-2025 Buprenorphine-Naloxone (Subo xone) 8-2 mg film Discontinued 1 NMA BUCCAL DAILY 3 3 0 January 07, 2025 11:00pm January 26, 2025 7:24am DULoxetine 30 mg delayed release oral capsule (2 sources) Serotonin and Norepinephrine Reuptake Inhibitor Start: 02-14-2025 Duloxetine 30 mg capsule,delayed release(DR/EC) Active 30 mg PO DAILY February 13, 2025 11:00pm depression pt to take 1 tablet daily for 7-10 days starting 02/11/25, then increase to twice daily. Complies with drug therapy hydrOXYzine hydrochloride 25 mg oral tablet (2 sources) Antihistamine Start: 02-14-2025 take 25-50 mg by mouth twice daily as needed for anxiety Hydroxyzine Hcl 25 mg tablet Active 25 - 50 mg PO TWICE A DAY as needed for anxiety February 13, 2025 11:00pm Complies with drug therapy LORazepam 0.5 mg oral tablet (10 sources) Benzodiazepine Start: 02-14-2025 take 1 tablet by mouth once daily as needed for anxiety Lorazepam 0.5 mg tablet Active 0.5 mg PO DAILY as needed for anxiety February 13, 2025 11:00pm Complies with drug therapy Start: 02-02-2025 End: 02-14-2025 take 1 tablet by mouth twice daily as needed for anxiety Lorazepam (Ativan) 1 mg tablet Discontinued 1 mg PO TWICE A DAY as needed for anxiety 8 0 February 01, 2025 11:00pm February 14, 2025 8:39am Start: 01-26-2025 End: 02-14-2025 take 1 tablet by mouth three times daily as needed for anxiety Lorazepam (Ativan) 1 mg tablet Discontinued 1 mg PO THREE TIMES A DAY as needed for anxiety 10 0 January 25, 2025 11:00pm February 14, 2025 8:39am Start: 09-01-2021 End: 09-01-2021 LORazepam (ATIVAN) injection 2 mg Multivitamin tablet (2 sources) Start: 02-14-2025 Multivitamin t ablet Active 1 {tbl} PO DAILY February 13, 2025 11:00pm supplement Complies with drug therapy Completed/Discontinued Medications Medication Drug Class(es) Dates Sig (Normalized) Sig (Original) aspirin 81 mg chewable tablet (2 sources) Platelet Aggregation Inhibitor, Nonsteroidal Anti-inflammatory Drug Start: 08-22-2023 End: 08-22-2023 aspirin chewable tablet 324 mg cephalexin 500 mg oral capsule (6 sources) Cephalosporin Antibacterial Start: 07-22-2020 End: 01-26-2025 take 1 capsule by mouth four times daily Cephalexin 500 MG capsule Discontinued 500 mg PO 4 TIMES DAILY July 21, 2020 11:00pm January 26, 2025 7:24am ibuprofen 200 mg oral capsule (4 sources) Nonsteroidal Anti-inflammatory Drug End: 12-04-2022 Ibuprofen 200 mg cap Take by mouth. 0 12/04/2022 Discontinued Comment on above: Take by mouth. meloxicam 15 mg oral tablet (4 sources) Nonsteroidal Anti-inflammatory Drug Start: 05-02-2015 End: 12-04-2022 take 1 tablet by mouth once daily meloxicam (MOBIC) 15 mg tablet Take 1 tablet by mouth once daily. 30 tablet 2 05/02/2015 12/04/2022 Discontinued Comment on above: Take 1 tablet by jaun th once daily. sulfamethoxazole 800 mg / trimethoprim 160 mg oral tablet (6 sources) Dihydrofolate Reductase Inhibitor Antibacterial, Sulfonamide Antimicrobial Start: 07-22-2020 End: 01-26-2025 Sulfamethoxazole- Trimethoprim 1 TABLET tablet Discontinued 1 {tbl} PO TWICE A DAY July 21, 2020 11:00pm January 26, 2025 7:24am traMADol hydrochloride 50 mg oral tablet (2 sources) Opioid Agonist Start: 08-22-2023 End: 08-22-2023 traMADol (Ultram) tablet 100 mg Problems Active Problems Problem Classification Problem Date Documented Date Episodic/Chronic Administrative/social admission (6 sources) Imprisonment; Translations: [Imprisonment and other incarceration] Onset: 08-24-2024 08-26-2024 Episodic Anxiety disorders (20 sources) Anxiety; Translations: [Anxiety state] Onset: 09-08-2021 08-04-2013 Chronic Asthma (6 sources) Asthma; Translations: [Unspecified asthma, uncomplicated] 02-02-2020 Chronic Attention-deficit, conduct, and disruptive behavior disorders (7 sources) Attention deficit hyperactivity disorder; Translations: [Attention-deficit hyperactivity disorder, unspecified type] Onset: 12-18-2004 04-25-2023 Chronic Attention-deficit, conduct, and disruptive behavior disorders (1 source) Attention-deficit hyperactivity disorder, unspecified type; Translations: [Attention-deficit hyperactivity disorder, unspecified type] Onset: 08-03-2018 Chronic Cardiac dysrhythmias (5 sources) Palpitations; Translations: [Palpitations] Onset: 02-10-2025 01-26-2025 Episodic Hepatitis (1 source) Chronic viral hepatitis C; Translations: [Chronic hepatitis C without hepatic coma (HCC)] Onset: 04-25-2023 Chronic Immunizations and screening for infectious disease (3 sources) Tuberculosis screening status; Translations: [Encounter for screening for respiratory tuberculosis] Onset: 08-24-2024 08-24-2024 Episodic Inflammatory conditions of male genital organs (20 sources) Abscess of penis; Translations: [Abscess of corpus cavernosum and penis] Onset: 04-25-2023 04-25-2023 Chronic Mood disorders (8 sources) Bipolar affective disorder, currently depressed, moderate; Translations: [Bipolar disorder, current episode depressed, moderate] Onset: 01-05-2023 04-29-2023 Chronic Nonspecific chest pain (9 sources) Chest pain; Translations: [Chest pain, unspecified] Onset: 08-22-2023 08-22-2023 Episodic Other connective tissue disease (1 source) Trismus; Translations: [Cramp and spasm] Episodic Other screening for suspected conditions (not mental disorders or infectious disease) (2 sources) Patient encounter status; Translations: [Encounter for screening for malignant neoplasm of colon] Onset: 08-24-2024 08-26-2024 Episodic Other skin disorders (6 sources) Folliculitis; Translations: [Follicular disorder, unspecified] 07-13-2014 Episodic Other upper respiratory infections (2 sources) Acute upper respiratory infection; Translations: [Acute upper respiratory infection, unspecified] Onset: 12-21-2024 12-21-2024 Episodic Residual codes; unclassified (1 source) Procedure and treatment not carried out due to patient leaving prior to being seen by health care provider; Translations: [Procedure and treatment not carried out due to patient leaving prior to being seen by health care provider] Onset: 02-25-2025 Episodic Skin and subcutaneous tissue infections (18 sources) Abscess of forehead; Translations: [Cutaneous abscess of face] 11-16-2016 Episodic Substance-related disorders (17 sources) Smoker; Translations: [Nicotine dependence, unspecified, uncomplicated] Onset: 04-25-2023 08-28-2023 Chronic Substance-related disorders (11 sources) Other psychoactive substance use, unspecified, uncomplicated; Translations: [Narcotic drug user] Onset: 04-25-2023 08-22-2023 Episodic Unclassified (1 source) Detox Onset: 04-11-2023 Unclassified (1 source) Refill Request Onset: 02-02-2025 Unclassified (1 source) Exposure to COVID-19 virus; Translations: [Exposure to COVID-19 virus] Onset: 12-21-2024 Urinary tract infections (6 sources) Urethritis; Translations: [Other urethritis] 12-10-2013 Episodic Viral infection (2 sources) Viral disease; Translations: [...] stomach, initial encounter] Onset: 12-25-2022 01-06-2023 Episodic Results Test Name Value Interpretation Reference Range Facility Emergency Department Summary on 02-14-2025 Emergency Department Summary [facility] Medical Records Department [address] [place] [address] Emergency Department Summary 02/14/25 MR#: [id number] Acct: [id number] Name: KEKE PEMBERTON Rep #: [id number] : 1990 34 From: Horacio Juarez MD PCP: Vasyl Lara MD Status:PRE ER Location: ED HPI History of Present Illness Chief Complaint: General Illness Informant: patient Narrative Narrative: Patient is a 34-year-old male presenting with symptoms of Suboxone withdrawal. - Has been off Suboxone for 1-2 days. He ran out and stopped it abruptly - Reports symptoms of withdrawal including hot and cold sweats, anxiety, and mild abdominal cramping. - Denies dyspnea or emesis. - Has been on and off Suboxone for a couple of years; last prescription was for 8 mg tablets, but he was taking less than a full tablet due to strength. - Abruptly stopped taking Suboxone 2 days ago. 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 - Recently obtained a medical marijuana license a few weeks ago. - Has a 2-year-old and a 5-year-old child. [facility] Medical History Drug abuse in remission Anxiety Home Medications ???Medication ???Instructions ???Recorded ???Last Taken ???Type buprenorphine 8 mg-naloxone 2 mg 1 film buccal DAILY #20 ea 5 Unknown Rx sublingual film (Suboxone) duloxetine 30 mg capsule,delayed 30 mg PO DAILY depression 02/14/25 Unknown History release hydroxyzine HCl 25 mg tablet 25 - 50 mg PO BID PRN anxiety 01/2702/13/25 History lorazepam 0.5 mg tablet 0.5 mg PO DAILY PRN anxiety 02/12/25 History multivitamin 1 tab PO DAILY supplement 02/14/25 02/14/25 History Allergy/AdvReac Type Severity Reaction Status Date / Time No Known Allergies Allergy Verified 02/14/25 09:38 Family History no significant family his Surgical History no surgical history Social History household members: significant other current occupational status: employed Smoking Status: Current every day smoker tobacco type: e-cigarettes ROS ROS ED Constitutional Constitutional ED: Denies chills or fever(s) Eyes Eyes: Denies change in vision or diplopia ENT ENT ED: Denies rhinorrhea or sore throat Cardiovascular Cardiovascular: Denies chest pain or palpitations Respiratory/Chest Respiratory/Chest: Denies cough or dyspnea Gastrointestinal Gastrointestinal: Reports abdominal pain; Denies diarrhea, nausea or vomiting Genitourinary Genitourinary ED: Denies dysuria or hematuria Musculoskeletal Musculoskeletal: Denies back pain or neck pain Integumentary Denies abscess or rash Neurologic Neurologic: Denies headache(s), paresthesias or weakness Psychiatric Psychiatric: Reports anxiety; Denies suicidal thoughts EXAM Physical Exam Const Vital Signs: 02/14/25 09:38 02/14/25 09:57 Temperature 97.7 F L Temperature Source Oral Pulse Rate 67 Respiratory Rate 16 Respiratory Effort Normal Non-Labored Blood Pressure 120/87 H Blood Pressure Mean 98 Pulse Ox 100 Oxygen Delivery Method Room Air Positive well nourished and well developed General Appearance ED: well developed and NAD HEENT Reports moist mucous membranes normocephalic and atraumatic Eyes PERRL and EOMs intact bilaterally Neck full ROM and supple Resp normal respiratory effort and clear to auscultation bilaterally Cardio regular rate, regular rhythm and no murmurs GI non-tender and non-distended Auscultation: normoactive bowel sounds Palpation: soft Back/Spine no CVA tenderness General Back: other FROM Extremity normal to inspection General Extremety ED: Negative for edema, pulses abnormal or tenderness General Extremity: Negative for edema or pulses abnormal Neuro oriented x3, CN's II-XII intact bilaterally and no sensory deficits noted Sensorium / Orientation: awake and alert Motor Exam: strength 5/5 throughout Skin no rashes or lesions noted and no wounds MDM MDM MDM Narrative Medical decision making narrative: Assessment: The patient is a 34-year-old male with history of opioid dependence in remission presenting for worsening mild withdrawal symptoms after abruptly stopping Suboxone two days ago. He reports hot-cold sweats, anxiety, mild abdominal cramping, without vomiting or respiratory distress. Findings on exam are benign. Given the temporal relationship to discontinuation of buprenorphine- naloxone, opioid withdrawal is the most likely diagnosis. Plan: - Provided prescription for Suboxone for short-term management of withdrawal. - Advised outpatient follow-up with [facility] addiction center / Dr. Aldridge for structured taper and ongoing medication-assisted treatment. (more content not included)... Normal [facility] CNOVon 02-02-2025 CNOV Office Visit ([facility]) KEKE PEMBERTON ([id number]) 1990 M Date Time Provider Department 02/02/25 4:30 PM QUAN TAYLOR During your visit today, we recorded the following information about you: Quan Taylor MD 02/02/2025 4:19 PM Signed Urgent Care Triage Note: Patient presents to the urgent care with anxiety. He was evaluated at the ER for chest pain and palpitations. He reports the evaluation was negative. He is scheduled for follow up with a prior PCP (patient has returned to the area). He is out of the ativan prescribed at the ER and would like a refill. He is not interested in non-benzodiazepine alternatives and cancelled his appointment here. Allergies As of Date: 02/02/2025 (No Known Allergies) Date Reviewed: 09/01/2023 Reviewed by: Gabriella Ahuja RN - Fully Assessed Reason for Visit: Refill Request [94] Cmt: Out of Ativan Primary Visit Diagnosis:Anxiety disorder, unspecified type [F41.9] Problem List As Of Date 02/02/2025 Noted Resolved Dislocation of shoulder, anterior, left, [...] Seizure (HCC) [R56.9] 08/29/2023 Encounter Status:Closed by QUAN TAYLOR on 02/02/25 [facility] Emergency Department Summary on 02-02-2025 Emergency Department Summary [facility] Medical Records Department [address] [place] [id number] Emergency Department Summary 02/02/25 MR#: [id number] Acct: [id number] Name: KEKE PEMBERTON Rep #: [id number] : 1990 34 From: Juan Garrett MD PCP: Vasyl Lara MD Status:PRE ER Location: ED HPI History of Present Illness Chief Complaint: Anxiety Narrative Narrative: 34-year-old male past medical history of anxiety presents with panic attacks and palpitations that he has been having for the last week. He relates history that he was seen in the emergency department on October 1, 8 days ago, and had workup for palpitations. He states that he is having increased panic attacks because one of his relatives recently. He had been given Ativan to take up to 3 times a day, 1 mg. He was only taking it once daily for his panic attacks and heart palpitations, but may have taken it 2 or 3 times on a day or 2. He is out of his medication currently, and states he does not have an appointment with his primary care provider until Friday, 5 days from now. [facility] Medical History Anxiety Home Medications ???Medication ???Instructions ???Recorded ???Last Taken ???Type lorazepam 1 mg tablet (Ativan) 1 mg PO TID PRN anxiety #10 tabs 1 Unknown Rx lorazepam 1 mg tablet (Ativan) 1 mg PO BID PRN anxiety #8 tabs Unknown Rx Allergy/AdvReac Type Severity Reaction Status Date / Time No Known Allergies Allergy Verified 02/02/25 16:22 Social History Smoking Status: Current every day smoker tobacco type: e-cigarettes ROS ROS ED ROS Narrative Review of systems positive for heart palpitations, panic attacks. He feels his heart racing and becomes short of breath at times. Sometimes a few times a day. EXAM Physical Exam Narrative Exam Narrative: Afebrile. Vital signs noted. Nontoxic-appearing. Cardiovascular examination reveals mild tachycardia. Lungs clear to auscultation bilaterally. Abdomen soft nontender with positive bowel sounds. No guarding or rebound. Neurological examination nonfocal, nonlateralizing. Upon entering the room, he is using his electronic tablet, reclined on the cot. Const Vital Signs: 02/02/25 16:22 Temperature 98.2 F Temperature Source Oral Pulse Rate 146 H Respiratory Rate 18 Blood Pressure 133/85 H Blood Pressure Mean 101 Pulse Ox 99 Oxygen Delivery Method Room Air MDM MDM MDM Narrative Medical decision making narrative: I do not feel differential diagnosis is applicable here. We do feel that you are probably having more of a grief reaction and panic attacks. I reviewed his prior ED visit and he had workup for ayse st pain and palpitations. He had been written a prescription for Ativan 1 mg. He received 10 tablets. I had a lengthy discussion with the patient and he was told that further prescriptions for benzodiazepines needs to come from his primary care provider and not from the emergency department. While he will be given a prescription for 8 additional tablets, no further tablets should be written from the emergency department, but he could be started on hydroxyzine or an alternative medication. I do not feel that he requires further laboratory work or imaging as he had a chest x-ray within the last 7 days, and a workup for his heart palpitations. Disposition is discharged home in stable condition. History Record Review Discussion w/independent historian: Patient Additional record(s) reviewed:: Prior ED visit Discharge Plan Triage Chief Complaint: Anxiety ED Provider: Juan Garrett Dx/Rx/DC Orders Clinical Impression: Anxiety, Palpitation Instructions: ED Anxiety Reaction, ED Heart Palpitations, ED Panic Attack Prescriptions: New lorazepam [Ativan] 1 mg tablet 1 mg PO BID PRN (Reason: anxiety) Qty: 8 0RF No Action lorazepam [Ativan] 1 mg tablet 1 mg PO TID PRN (Reason: anxiety) Qty: 10 0RF Primary Care Provider: Vasyl Lara Referrals: Vasyl Lara MD [Primary Care Provider, [facility]] - 02/07/25 Activity Restrictions/Additional Instructions: Further prescriptions for benzodiazepines need to come from your primary care provider or a psychiatrist. Follow-up with your primary care provider on Friday as scheduled. Print Language: Dutch Disposition Disposition: Home, Self Care What to do if you have Problems For any increased pain, shortness of breath, bleeding, nausea or vomiting, chest pain, or any unexpected problems, contact your Primary Care Provider. Call [facility] ([phone]) or report to the closest Emergency Room. Call 911 if necessary. 02/02/25 1649 Cosigner Signature (if applicable): CC: Vasyl Lara, (more content not included)... Normal [facility] 12 Lead EKGon 01-26-2025 12 Lead EKG [facility] Cardiovascular Services [address] [place] [address] 12 Lead EKG 01/26/25 0802 MR#: [id number] Acct: [id number] Name: SYLKEKE T Rep #: [id number] : 1990 34 From: Junior Das MD Attending Dr: Status: DEP ER Ordering Dr: Aisha Alves DO Date: 01/26/25 Location: ED Sex: M C Admitted: Test Reason : PALP Blood Pressure : */* mmHG Vent. Rate : 68 BPM Atrial Rate : 68 BPM P-R Int : 158 ms QRS Dur : 94 ms QT Int : 364 ms P-R-T Axes : 74 87 66 degrees QTcB Int : 387 ms Normal sinus rhythm Normal ECG Confirmed by Junior Das ([id number]), news editor DANIAL CUELLAR ([id number]) on 01/28/2025 7:14:20 AM Referred By: RU Confirmed By: Junior Das 01/28/25 0714 Date Junior Das MD CC: Dr. Aisha Alves DO; No Primary Care Physician Signed Normal [facility] Absolute lymphocyte countOrd ered By: Aisha Alves on 01-26-2025 Lymphocytes Auto (Unsp spec) [#/Vol] 2.66 10*3/uL 0.83-4.51 [facility] Absolute neutrophil countOrd ered By: Aisha Alves on 01-26-2025 Neutrophils (Bld) [#/Vol] 3.3 10*3/uL 2.0-7.7 [facility] Anion gap in Serum or Plasma Ordered By: Aisha Alves on 01-26-2025 Anion gap [Moles/Vol] 9 mmol/L 5- [facility] Automated lymphocyte count a s percentage of total leukocytesOrdered By: Aisha Alves on 01-26-2025 Lymphocytes/100 WBC Auto (Unsp spec) 36.0 % - [facility] BUN/creatinine ratioOrdered By: Aisha Alves on 01-26-2025 Urea nitrogen/Creatinine [Mass ratio] 22.9 mg/mg High 02-14 [facility] Basic Metabolic Profile (BMP )on 01-26-2025 BUN/CRE 22.9 RATIO High 02-14 [facility] Comment on above: Performed By: #### L 100.0100, L501.4021, L500.2500, L300.8000 #### [facility] [address] [place], [address] Calcium [Mass/Vol] 9.0 mg/dL Normal 7.6-11.0 [facility] Comment on above: Performed By: #### L 100.0100, L501.4021, L500.2500, L300.8000 #### [facility] [address] [place], [address] Chloride [Moles/Vol] 104 mmol/L Normal 98-108 [facility] Comment on above: Performed By: #### L 100.0100, L501.4021, L500.2500, L300.8000 #### [facility] [address] [place], [address] CO2 [Moles/Vol] 26.0 mmol/L Normal 21.0-32.0 [facility] Comment on above: Performed By: #### L 100.0100, L501.4021, L500.2500, L300.8000 #### [facility] [address] [place], [address] Creatinine [Mass/Vol] 0.74 mg/dL Normal 0.70-1.20 [facility] Comment on above: Performed By: #### L 100.0100, L501.4021, L500.2500, L300.8000 #### [facility] [address] [place], [address] ECRCL 130.85 ml/min Normal 50-250 [facility] Comment on above: Performed By: #### L 100.0100, L501.4021, L500.2500, L300.8000 #### [facility] [address] [place], [address] GAP 9 Normal 5-15 [facility] Comment on above: Performed By: #### L 100.0100, L501.4021, L500.2500, L300.8000 #### [facility] [address] [place], [address] GFR/1.73 sq M.predicted among non-blacks MDRD (S/P/Bld) [Vol rate/Area] 122 mL/min/{1.73_m2} Normal >60 [facility] Comment on above: Result Comment: mL/m in/1.73m2 CKD-EPI Creatinine Equation (2020) Performed By: #### L 100.0100, L501.4021, L500.2500, L300.8000 #### [facility] [address] [place], [address] Glucose [Mass/Vol] 117 mg/dL High 70-99 [facility] Comment on above: Performed By: #### L 100.0100, L501.4021, L500.2500, L300.8000 #### [facility] [address] [place], [address] Potassium [Moles/Vol] 3.8 mmol/L Normal 3.3-5.1 [facility] Comment on above: Performed By: #### L 100.0100, L501.4021, L500.2500, L300.8000 #### [facility] [address] [place], [address] Sodium [Moles/Vol] 139 mmol/L Normal 133-145 [facility] Comment on above: Performed By: #### L 100.0100, L501.4021, L500.2500, L300.8000 #### [facility] [address] [place], [address] Urea nitrogen [Mass/Vol] 17 mg/dL Normal 4-19 [facility] Comment on above: Performed By: #### L 100.0100, L501.4021, L500.2500, L300.8000 #### [facility] [address] [place], [address] Basophil percentageOrdered B y: Aisha Alves on 01-26-2024 Basophils/100 WBC (Bld) 0.5 % 0-1 [facility] CBC W/Diff, Automatedon 10--2024 Absolute Lymph 2.66 X10 3/uL Normal 0.83-4.51 [facility] Comment on above: Performed By: #### L 100.0100, L501.4021, L500.2500, L300.8000 #### [facility] [address] [place], [address] Absolute Neut 3.3 X10 3/uL Normal 2.0-7.7 [facility] Comment on above: Performed By: #### L 100.0100, L501.4021, L500.2500, L300.8000 #### [facility] [address] [place], [address] Basophils/100 WBC (Bld) 0.5 % Normal 0-1 [facility] Comment on above: Performed By: #### L 100.0100, L501.4021, L500.2500, L300.8000 #### [facility] [address] [place], [address] Eosinophils/100 WBC (Bld) 6.4 % High 0-5 [facility] Comment on above: Performed By: #### L 100.0100, L501.4021, L500.2500, L300.8000 #### [facility] [address] [place], [address] Erythrocyte distribution width (RBC) [Ratio] 12.5 % Normal 11.6-14.6 [facility] Comment on above: Performed By: #### L 100.0100, L501.4021, L500.2500, L300.8000 #### [facility] [address] [place], [address] Hematocrit (Bld) [Volume fraction] 45.3 % Normal 40-54 [facility] Comment on above: Performed By: #### L 100.0100, L501.4021, L500.2500, L300.8000 #### [facility] [address] [place], [address] Hemoglobin (Bld) [Mass/Vol] 15.0 g/dL Normal 13.0-16.5 [facility] Comment on above: Performed By: #### L 100.0100, L501.4021, L500.2500, L300.8000 #### [facility] [address] [place], [address] IG% 0.300 Normal 0.0-0.9 [facility] Comment on above: Result Comment: IG% - Immature Granulocytes (promyelocytes, myelocytes and metamyelocytes) > 1% indicates that a LEFT SHIFT is Present. Performed By: #### L 100.0100, L501.4021, L500.2500, L300.8000 #### [facility] [address] [place], [address] Lymphocytes/100 WBC (Bld) 36.0 % Normal 19-41 [facility] Comment on above: Performed By: #### L 100.0100, L501.4021, L500.2500, L300.8000 #### [facility] [address] [place], [address] MCH (RBC) [Entitic mass] 30.4 pg Normal 27.0-32.0 [facility] Comment on above: Performed By: #### L 100.0100, L501.4021, L500.2500, L300.8000 #### [facility] [address] [place], [address] MCHC (RBC) [Mass/Vol] 33.1 g/dL Normal 32-36 [facility] Comment on above: Performed By: #### L 100.0100, L501.4021, L500.2500, L300.8000 #### [facility] [address] [place], [address] MCV (RBC) [Entitic vol] 91.7 fL Normal 80-94 [facility] Comment on above: Performed By: #### L 100.0100, L501.4021, L500.2500, L300.8000 #### [facility] [address] [place], [address] Monocytes/100 WBC (Bld) 12.3 % High 0-10 [facility] Comment on above: Performed By: #### L 100.0100, L501.4021, L500.2500, L300.8000 #### [facility] [address] [place], [address] Neutrophils/100 WBC (Bld) 44.5 % Low 47-70 [facility] Comment on above: Performed By: #### L 100.0100, L501.4021, L500.2500, L300.8000 #### [facility] [address] [place], [address] Nucleated RBC (Bld) [#/Vol] 0 10*3/uL Normal 0-5 [facility] Comment on above: Performed By: #### L 100.0100, L501.4021, L500.2500, L300.8000 #### [facility] [address] [place], [address] Platelet mean volume (Bld) [Entitic vol] 9.7 fL Normal 6.2-12.0 [facility] Comment on above: Performed By: #### L 100.0100, L501.4021, L500.2500, L300.8000 #### [facility] [address] [place], [address] Platelets (Bld) [#/Vol] 206 10*3/uL Normal 150-450 [facility] Comment on above: Performed By: #### L 100.0100, L501.4021, L500.2500, L300.8000 #### [facility] [address] [place], [address] RBC (Bld) [#/Vol] 4.94 10*6/uL Normal 4.6-6.2 [facility] Comment on above: Performed By: #### L 100.0100, L501.4021, L500.2500, L300.8000 #### [facility] [address] [place], [address] RDW SD 42.3 fl Normal 35.1-43.9 [facility] Comment on above: Performed By: #### L 100.0100, L501.4021, L500.2500, L300.8000 #### [facility] [address] [place], [address] WBC (Bld) [#/Vol] 7.4 10*3/uL Normal 4.4-11.0 [facility] Comment on above: Performed By: #### L 100.0100, L501.4021, L500.2500, L300.8000 #### [facility] [address] [place], [address] Carbon dioxide, total [Moles /volume] in Central venous bloodOrdered By: Aisha Alves on 01-26-2025 CO2 [Moles/Vol] 26.0 mmol/L 21.0-32.0 [facility] Chest 1 View (Portable)on Chest 1 View (Portable) [facility] Imaging Services [address] [place] [address] Chest 1 View (Portable) MR#: [id number] Acct: [id number] Name: KEKE PEMBERTON Rep #: [id number] : 1990 M 34 From: Dipak Khalil MD PCP: Care Physician,No Primary Status: [facility] ER Study: Chest 1 View (Portable) Date of Exam: 01/26/25 Exam# [id number] Ordering Dr: Aisha Alves DO PROCEDURE: CHEST 1 VIEW (PORTABLE) 01/26/2025 REASON FOR EXAM: CHEST PAIN TECHNIQUE: 2 frontal views COMPARISON: 2019 FINDINGS: Hardware: EKG leads overlie the chest Heart: The heart size is normal. Lungs: The lungs are clear. Bones: The bones are unremarkable. Other: RAD/Chest 1 View (Portable) IMPRESSION: No acute pulmonary process Reading Location: [id number] CC: Dr. Aisha Alves DO; No Primary Care Physician [place]: Signed Normal [facility] Chloride assayOrdered By: Gillian Alves on 01-26-2025 Chloride [Moles/Vol] 104 mmol/L 98-108 [facility] D-Dimer Quantitative (DVT/PE )on 01-26-2025 D-DIMER QUANT 0.27 FEU/ug/m Normal 0.27-0.49 [facility] Comment on above: Result Comment: NORM AL D-Dimer level (<0.50) indicates no DVT or PE. Performed By: #### L 100.0100, L501.4021, L500.2500, L300.8000 #### [facility] [address] [facility] [place], [address] Emergency Department Summary on 01-26-2025 Emergency Department Summary [facility] Medical Records Department [address] [place] [address] Emergency Department Summary 01/26/25 MR#: [id number] Acct: [id number] Name: KEKE PEMBERTON Rep #: [id number] : 1990 34 From: Aisha Alves DO PCP: Care Physician,No Primary Status:DEP ER Location: ED HPI History of Present Illness Chief Complaint: Palpitations Detail of Chief Complaint: Chest pain and palpitations Informant: patient Narrative Narrative: Patient presents with chest pain and palpitations that been going on for at least 6 months. States he was seen a few days ago in the emergency department and had an EKG that was unremarkable. Patient is concerned because his father had heart disease and patient believes he may have had heart attacks in his 30s but does not know if he had any heart stents as patient's father is currently . Patient denies recent travel or surgery. Denies recent illness. He describes at times having numbness and tingling in his right arm. He complains of exertional dyspnea at times. He has not taken his pulse when these palpitations are occurring and they can last up to an hour. PFSH PFS Medical History no medical history Home Medications ???Medication ???Instructions ???Recorded ???Last Taken ???Type lorazepam 1 mg tablet (Ativan) 1 mg PO TID PRN anxiety #10 tabs 1 Unknown Rx Allergy/AdvReac Type Severity Reaction Status Date / Time No Known Allergies Allergy Verified 01/26/25 07:46 Social History Smoking Status: Current every day smoker tobacco type: e-cigarettes ROS ROS ED Review of Systems ROS Unobtainable: other Constitutional Constitutional ED: Reports lethargy; Denies chills, fever(s), sweats or weight loss Eyes Eyes: Denies blurry vision, change in vision or diplopia ENT ENT ED: Denies rhinorrhea or sore throat Cardiovascular Cardiovascular: Reports chest pain, palpitations and racing heartbeat; Denies orthopnea Respiratory/Chest Respiratory/Chest: Reports dyspnea and dyspnea on exertion; Denies cough, orthopnea or sputum Gastrointestinal Gastrointestinal: Denies abdominal pain, diarrhea, nausea or vomiting Genitourinary Genitourinary ED: Denies dysuria, hematuria or urinary frequency Musculoskeletal Musculoskeletal: Denies arthralgias, back pain, myalgias or neck pain Integumentary Denies abscess, Abrasions or rash Neurologic Neurologic: Denies headache(s) or weakness Psychiatric Psychiatric: Denies anxiety, depression or suicidal thoughts Endocrine Endocrinology: Denies polydipsia, polyphagia or polyuria Hematologic/Lymphatic Hematologic/Lymphatic: Denies easy bleeding, easy bruising or lymphadenopathy Allergic/Immunologic Allergic/Immunologic ED: Denies mouth swelling, tongue swelling or urticaria EXAM Physical Exam Const Vital Signs: 01/26/25 07:46 01/26/25 08:09 01/26/25 08:27 Temperature 97.1 F L Temperature Source Temporal Pulse Rate 63 Respiratory Rate 18 Respiratory Effort Normal Non-Labored Respiratory Pattern Normal Blood Pressure 125/62 H Blood Pressure Mean 83 Pulse Ox 100 Oxygen Delivery Method Room Air 01/26/25 08:45 Temperature Temperature Source Pulse Rate 70 Respiratory Rate 15 Respiratory Effort Respiratory Pattern Blood Pressure 129/73 H Blood Pressure Mean 91 Pulse Ox 100 Oxygen Delivery Method Room Air Positive well nourished and well developed General Appearance ED: well developed and NAD HEENT Reports TM's clear and moist mucous membranes normocephalic and atraumatic; Negative for trauma or tenderness Tympanic Membrane ED: Yes TM's clear Eyes PERRL and EOMs intact bilaterally General Eye ED: Negative for pale conjunctiva or scleral icterus Neck no lymphadenopathy, supple and no JVD General: Negative for tenderness Chest Wall inspection of chest normal and palpation of chest normal Chest: Negative for tenderness Resp normal respiratory effort and clear to auscultation bilaterally Effort and Inspection: Negative for respiratory distress or pain with movement Auscultation: Negative for rhonchi, wheezes or diminished lung sounds Cardio regular rate, regular rhythm, S1 normal heart sound, S2 normal heart sound and no murmurs Peripheral Pulses: pulses 2+ throughout GI normal to inspection, nondistended, normoactive bowel sounds, soft to palpation, non-tender, non- distended and no masses Back/Spine no CVA tenderness and no thoracic nor lumbar tenderness Extremity normal to inspection General Extremety ED: Negative for edema General Extremity: Negative for edema Neuro oriented x3, CN's II-XII intact bilaterally, no sensory deficits noted and gait normal Sensorium / Orientation: awake, alert, o (more content not included)... Normal [facility] Eosinophil percentageOrdered By: Aisha Alves on 01-26-2025 Eosinophils/100 WBC (Bld) 6.4 % High 0-5 [facility] Erythrocyte distribution wid th ratioOrdered By: Aisha Alves on 01-26-2025 Erythrocyte distribution width (RBC) [Ratio] 12.5 % 11.6-14.6 [facility] Erythrocyte distribution wid th standard deviationOrdered By: Aisha Alves on 01-26-2025 Erythrocyte distribution width (RBC) [Ratio] 42.3 fl 35.1-43.9 [facility] Glomerular filtration rate ( GFR) estimation/1.73 sq m using serum, plasma, or whole bOrdered By: Aisha Alves on 01-26-2025 GFR/1.73 sq M.predicted among non-blacks MDRD (S/P/Bld) [Vol rate/Area] 122 mL/min/{1.73_m2} >60 [facility] Comment on above: mL/min/1.73m2 CKD-EP I Creatinine Equation (2020) Hematocrit Auto (Bld) [Volum e fraction]Ordered By: Aisha Alves on 01-26-2025 Hematocrit (Bld) [Volume fraction] 45.3 % 40-54 [facility] Hemoglobin measurementOrdere d By: Aisha Alves on 01-26-2025 Hemoglobin (Bld) [Mass/Vol] 15.0 g/dL 13.0-16.5 [facility] Immature granulocytes/100 WB C Auto (Bld)Ordered By: Aisha Alves on 01-26-2025 Immature granulocytes/100 WBC (Bld) 0.300 % 0.0-0.9 [facility] Comment on above: IG% - Immature Granu locytes (promyelocytes, myelocytes and metamyelocytes) > 1% indicates that a LEFT SHIFT is Present. L501.4021on 01-26-2025 Trop T High Sen < 6 Normal <=22 [facility] Comment on above: Performed By: #### L 100.0100, L501.4021, L500.2500, L300.8000 #### [facility] [place], [address] MCV (mean corpuscular volume ) determinationOrdered By: Aisha Alves on 01-26-2025 MCV (RBC) [Entitic vol] 91.7 fL 80-94 [facility] Mean corpuscular hemoglobin (MCH) determinationOrdered By: Aisha Alves on 01-26-2025 MCH (RBC) [Entitic mass] 30.4 pg 27.0-32.0 [facility] Mean corpuscular hemoglobin concentration (MCHC) determinationOrdered By: Aisha Alves on 01-26-2025 MCHC (RBC) [Mass/Vol] 33.1 g/dL 32-36 [facility] Mean platelet volume determi nationOrdered By: Aisha Alves on 01-26-2025 Platelet mean volume (Bld) [Entitic vol] 9.7 fL 6.2-12.0 [facility] Monocyte percentageOrdered B y: Jemima Long on 01-26-2025 Monocytes/100 WBC (Bld) 12.3 % High 0-10 [facility] Neutrophil percentageOrdered By: Aisha Alves on 01-26-2025 Neutrophils/100 WBC (Bld) 44.5 % Low 47-70 [facility] Nucleated red blood cell per centageOrdered By: Aisha Alves on 01-26-2025 Nucleated RBC/100 WBC (Bld) [Ratio] 0 % 0-5 [facility] Platelet countOrdered By: Gillian Alves on 01-26-2025 Platelets (Bld) [#/Vol] 206 10*3/uL 150-450 [facility] Potassium measurement (mass/ volume)Ordered By: Aisha Alves on 01-26-2025 Potassium (Unsp spec) [Mass/Vol] 3.8 mmol/L 3.3-5.1 [facility] RBC Auto (Bld) [#/Vol]Ordere d By: Aisha Alves on 01-26-2025 RBC (Bld) [#/Vol] 4.94 10*6/uL 4.6-6.2 [facility] Serum creatinine measurement (mass/volume)Ordered By: Aisha Alves on 01-26-2025 Creatinine [Mass/Vol] 0.74 mg/dL 0.70-1.20 [facility] Serum glucose measurement (m ass/volume)Ordered By: Aisha Alves on 01-26-2025 Glucose [Mass/Vol] 117 mg/dL High 70-99 [facility] Serum or plasma calcium ethan urement (mass/volume)Ordered By: Aisha Alves on 01-26-2025 Calcium [Mass/Vol] 9.0 mg/dL 7.6-11.0 [facility] Serum or plasma urea nitroge n measurement (mass/volume)Ordered By: Aisha Alves on 01-26-2025 Urea nitrogen [Mass/Vol] 17 mg/dL 4-19 [facility] Sodium levelOrdered By: Laurel Alves on 01-26-2025 Sodium [Moles/Vol] 139 mmol/L 133-145 [facility] Troponin T HS 2 HRon 025 Trop T High Sen Normal <=22 [facility] Comment on above: Result Comment: Canc elled via OM: Order cancelled - Patient discharged Performed By: #### L 499.0042 #### [facility] [address] [place], [place], [address] Troponin T HS 4 HRon 025 Trop T High Sen Normal <=22 [facility] Comment on above: Result Comment: Canc elled via OM: Order cancelled - Patient discharged Performed By: #### L 499.0043 #### [facility] [address] [place], [place], [address] Troponin T.cardiac [Mass/vol ume] in Serum or Plasma by High sensitivity methodOrdered By: Aisha Alves on 01-26-2025 Troponin T.cardiac High sensitivity method [Mass/Vol] < 6 ng/L <22 [facility] White blood cell (WBC) count Ordered By: Aisha Alves on 01-26-2025 WBC (Bld) [#/Vol] 7.4 10*3/uL 4.4-11.0 [facility] 12 Lead EKGon 01-22-2025 12 Lead EKG [facility] Cardiovascular Services [address] [place] [address] 12 Lead EKG 01/22/25 0042 MR#: [id number] Acct: [id number] Name: KEKE PEMBERTON Rep #: [id number] : 1990 34 From: Megan Valerio MD Attending Dr: Status: DEP ER Ordering Dr: Forest Eisenberg Date: 01/22/25 Location: ED Sex: M C Admitted: Test Reason : O Blood Pressure : */* mmHG Vent. Rate : 87 BPM Atrial Rate : 87 BPM P-R Int : 152 ms QRS Dur : 90 ms QT Int : 332 ms P-R-T Axes : 80 90 66 degrees QTcB Int : 399 ms Normal sinus rhythm Rightward axis Borderline ECG Confirmed by MEGAN VALERIO ([id number]), news editor DANIAL CUELLAR ([id number]) on 01/24/2025 8:58:14 AM Referred By: Confirmed By: MEGAN VALERIO 01/24/25 0858 Date Megan Valerio MD CC: ED PHYSICIAN PROVIDER; No Primary Care Physician Signed Normal [facility] Electrocardiogram reportOrde red By: Megan Valerio on 01-22-2025 EKG study [facility] Cardi[facility] Services [address] [place] [address] 12 Lead EKG 01/22/25 0042 MR#: [id number] Acct: [id number] Name: KEKE PEMBERTON Rep #:[id number] : 1990 34 From: Megan Valerio MD Attending Dr: Status: DEP E R Ordering Dr: Provider,Ed P. Date: Location: ED Sex: M C Admitted: Test Reason : O Blood Pressure : */* mmHG Vent. Rate : 87 BPM Atrial Rate : 87 BPM P-R Int : 152 ms QRS Dur : 90 ms QT Int : 332 ms P-R-T Axes : 80 90 66 degrees QTcB Int : 399 ms Normal sinus rhythm Rightward axis Borderline ECG Confirmed by MEGAN VALERIO ([id number]), news editor DANIAL CUELLAR ([id number]) on 01/24/2025 8:58:14 AM Referred By: Confirmed By: MEGAN VALERIO 01/24/25 0858 Date _ Megan Valerio MD CC: ED PHYSICIAN PROVIDER; No Primary Care Physician ~ Signed [facility] Other Phone: Amphetamine detection with 1 000 ng/mL as cutoffOrdered By: Castillo Jones on 01-08-2025 Amphetamines Screen method >1000 ng/mL Ql (U) Positive <1000 ng/mL [facility] Comment on above: If confirmation test ing is needed, a separate order will be required to send out testing to the reference laboratory. Amphetamines Screen method >1000 ng/mL Ql (U) Negative < 200 ng/mL [facility] Emergency Department Summary on 01-08-2025 Emergency Department Summary [facility] Medical Records Department [address] [place] [address] Emergency Department Summary 01/08/25 MR#: [id number] Acct: [id number] Name: KEKE PEMBERTON Rep #: [id number] : 1990 34 From: Castillo Jones DO PCP: Care Physician,No Primary Status:REG ER Location: ED HPI History of Present Illness Chief Complaint: Med Refill Narrative Narrative: Patient is a 34-year-old male with past medical history of opiate abuse who presents to the emergency department requesting Suboxone. He states that he was on Suboxone previously and had a provider in the [place] give him this prescription and states that he was not taken on a regular basis and notes that he had some leftover. He states he has been clean for a extended period of time at this point time and he recently lost a few loved ones and his family and is having a lot of stress from this. He states that he is having the urge to use fentanyl again but states that he has not and would prefer to take the Suboxone to prevent this from happening. Patient otherwise has no complaints. [facility] Medical History no medical history Home Medications ???Medication ???Instructions ???Recorded ???Last Taken ???Type cephalexin 500 mg capsule 500 mg PO 4X/DAY 07/22/20 Unknown History sulfamethoxazole 800 1 tablet PO BID 07/22/20 Unknown H istory mg-trimethoprim 160 mg tablet buprenorphine 8 mg-naloxone 2 mg 1 film buccal DAILY 3 days #3 ea 0 01/08/25 Unknown Rx sublingual film (Suboxone) Allergy/AdvReac Type Severity Reaction Status Date / Time No Known Allergies Allergy Verified 01/08/25 13:00 Social History Smoking Status: Current every day smoker tobacco type: e-cigarettes ROS ROS ED ROS Narrative Constitutional: Denies fevers, chills, headaches Cardiovascular: Denies chest pain Respiratory: Denies shortness of breath Abdomen: Denies nausea vomit diarrhea : Denies urinary symptoms Neurological: Denies numbness, weakness, tingling Musculoskeletal: Denies back pain Skin: Denies any rashes or lesions EXAM Physical Exam Narrative Exam Narrative: General: Patient was lying in bed resting comfortably did not appear to be acute distress Head: Atraumatic, normocephalic Eyes: PERRL bilaterally, EOMI bilaterally, no conjunctival injection noted Neck: Soft, supple, trachea midline Cardiovascular: Regular rate and rhythm no murmurs gallops rubs are noted Respiratory: Clear to auscultation bilaterally no rales rhonchi or wheezes noted Abdomen: Soft, nondistended, no tenderness to palpation Extremities: +5/5 strength noted in the bilateral upper and lower EXTR, radial pulses +2/4 in the bilateral extremities, no pedal edema no exam Neurological: Patient follow commands knew that he was at [facility] year is 2024 Skin: Warm, dry, intact no rashes or lesions noted Const Vital Signs: 01/08/25 12:58 01/08/25 14:01 Temperature 98.6 F Temperature Source Oral Pulse Rate 94 Respiratory Rate 15 Respiratory Effort Normal Non-Labored Respiratory Pattern Normal Blood Pressure 106/71 Blood Pressure Mean 82 Pulse Ox 100 Oxygen Delivery Method Room Air MDM MDM MDM Narrative Medical decision making narrative: Patient is a 34-year-old male who presented to the emergency department the chief complaint of wanting Suboxone. Patient drug screen performed here and then be reevaluated Drug screen reviewed showed presumptive positive for amphetamines and cannabis. Discussed with the patient he will given a dose here in the emergency department he states that he was on 8 mg previously will give him this dose. He will be given another dose for tomorrow as well and he was referred to the addiction program for them to continue and manage this. He is agreeable this plan he is advised return with worsening symptoms or concerns. All questions were answered he is discharged home in stable condition. Lab Data Labs: Laboratory Results - last 24 hr 01/08/25 14:10 Urine Opiates Screen NEGATIVE U Buprenorphine Qual NEGATIVE Ur Oxycodone Screen NEGATIVE Urine Methadone Screen NEGATIVE Urine Fentanyl Screen NEGATIVE Ur Barbiturates Screen NEGATIVE Ur Phencyclidine Scrn NEGATIVE Ur Amphetamines Screen PRESUMPTIVE POSITIVE U Benzodiazepines Scrn NEGATIVE Urine Cocaine Screen NEGATIVE U Cannabinoids Screen PRESUMPTIVE POSITIVE Discharge Plan Triage Chief Complaint: Med Refill ED Provider: Castillo Jones Dx/Rx/DC Orders Clinical Impression: Substance abuse, Anxiety Prescriptions: New buprenorphine-naloxone [Suboxone] 8-2 mg film 1 film buccal DAILY 3 Days Qty: 3 0RF No Action sulfamethoxazole-trimet hoprim 1 TABLET tablet (more content not included)... Normal [facility] No Panel InformationOrdered By: Castillo Jones on 01-08-2025 Urine Buprenorphine Qualitative Negative < 200 ng/mL [facility] Urine Oxycodone Screen Negative < 100 ng/mL [facility] Quantitative urine opiates m easurementOrdered By: Castillo Jones on 01-08-2025 Opiates Ql (U) Negative < 300 ng/mL [facility] Screening urine fentanyl bakari surementOrdered By: Castillo Jones on 01-08-2025 fentaNYL Screen Ql (U) Negative <5 ng/mL [facility] Comment on above: CONFIRMATORY TESTING FOR ALL POSITIVE URINE DRUG SCREENRESULTS WILL ONLY BE SENT OUT UPON PHYSICIAN ORDER. Que Pro Urine Drug Screen methods provide only preliminaryanalytical test results. A more specific alternate chemicalmethod must be used in order to obtain a confirmedanalytical result. Gas chromatography/mass spectrometery(GC/MS) is the preferred confirmatory method. Clinicalconsideration and professional judgement should be appliedto any drug of abuse test result, particularly whenpreliminary positive results are used. Urine TCA testing must be ordered separately. Use test mnemonic: UTCA Urine Drug Screen (VISTA)on 01-08-2025 AMPHETAMINES Positive Normal <1000 ng/mL [facility] Comment on above: Result Comment: If c onfirmation testing is needed, a separate order will be required to send out testing to the reference laboratory. Performed By: #### L 505.5000 ####[facility] [address] [place], [place], [id number] BARBITIURATES Negative Normal < 200 ng/mL [facility] Comment on above: Performed By: #### L 505.5000 ####[facility] [address] [place], [place], [phone] BENZODIAZIPINE Negative Normal < 200 ng/mL [facility] Comment on above: Performed By: #### L 505.5000 ####[facility] [address] [facility] [address] BUP Ur Drug Scr Negative Normal < 200 ng/mL [facility] Comment on above: Performed By: #### L 505.5000 ####[facility] [address] [place] [phone] COCAINE Negative Normal < 300 ng/mL [facility] Comment on above: Performed By: #### L 505.5000 ####[facility] [address] [facility] [address] Fentanyl Negative Normal <5 ng/mL [facility] Comment on above: Result Comment: CONF IRMATORY TESTING FOR ALL POSITIVE URINE DRUG SCREEN RESULTS WILL ONLY BE SENT OUT UPON PHYSICIAN ORDER. Que Pro Urine Drug Screen methods provide only preliminary analytical test results. A more specific alternate chemical method must be used in order to obtain a confirmed analytical result. Gas chromatography/mass spectrometery (GC/MS) is the preferred confirmatory method. Clinical consideration and professional judgement should be applied to any drug of abuse test result, particularly when preliminary positive results are used. Urine TCA testing must be ordered separately. Use test mnemonic: UTCA Performed By: #### L 505.5000 ####[facility] [address] [place] [phone] METHADONE Negative Normal < 300 ng/mL [facility] Comment on above: Performed By: #### L 505.5000 ####[facility] [address] [place] [phone] OPIATES Negative Normal < 300 ng/mL [facility] Comment on above: Performed By: #### L 505.5000 ####[facility] [address] [place] [phone] OXYCODONE Negative Normal < 100 ng/mL [facility] Comment on above: Performed By: #### L 505.5000 ####[facility] [address] [place], [place], [address] PCP Negative Normal < 25 ng/mL [facility] Comment on above: Performed By: #### L 505.5000 ####[facility] [address] [facility] [place], [address] THC Positive Normal < 50 ng/mL [facility] Comment on above: Result Comment: If c onfirmation testing is needed, a separate order will be required to send out testing to the reference laboratory. Performed By: #### L 505.5000 ####[facility] [address] [facility] [place], [place], [id number] Urine benzodiazepine levelOr dered By: Castillo Jones on 01-08-2025 Benzodiazepines Ql (U) Negative < 200 ng/mL [facility] Urine cocaine levelOrdered B y: Castillo Jones on 01-08-2025 Cocaine Ql (U) Negative < 300 ng/mL [facility] Urine dyfkv-3-yauykziykqbdmx abinol (THC) measurementOrdered By: Castillo Jones on 01-08-2025 Cannabinoids Screen Ql (U) Positive < 50 ng/mL [facility] Comment on above: If confirmation test ing is needed, a separate order will be required to send out testing to the reference laboratory. Urine phencyclidine (PCP) de tectionOrdered By: Castillo Jones on 01-08-2025 Phencyclidine Ql (U) Negative < 25 ng/mL [facility] CNPNon 12-22-2024 CNPN Telephone ([facility]) KEKE PEMBERTON ([id number]) 1990 M Date Time Provider Department 12/22/24 NO PCP (HIST) [facility] During your visit today, we recorded the following information about you: Liz Talamantes, DEMARCO 12/22/2024 8:15 AM Signed Patient calling to ask for test results from 12/21/24. (COPIED) Component Ref Range AND Units 1 d ago (12/21/24) 1 yr ago (04/24/23) 1 yr ago (04/11/23) SARS-CoV-2 (Agent of COVID-19) RNA See comment Detected Abnormal Result given to patient. Patient has no further questions. [facility] care advise was discussed at recent Urgent [...] Encounter Status:Closed by LIZ TALAMANTES on 12/24/24 Normal [facility] CNOVon 12-21-2024 CNOV Office Visit ([facility]) KEKE PEMBERTON ([id number]) 1990 M Date Time Provider Department 12/21/24 3:30 PM RUBIA HILL During your visit today, we recorded the following information about you: Temperature Pulse Respiration Blood pressure 98.1 degrees 86/minute 16/minute 110/70 Weight 62.7 kg Rubia Hill APRN.BRUSH HOLDER INSPECTOR 12/21/2024 4:23 PM Signed [facility] [...] - Provided (more content not included)... Normal [facility] TOXICOLOGY SCREEN, UNCONFIRM EDon 08-27-2024 Amphetamines Ql (U) Negative Negative [facility] Barbiturates Screen Ql (U) Negative Negative [facility] Benzodiazepines Ql (U) Negative Negative [facility] Benzoylecgonine Screen Ql (U) Negative Negative [facility] Buprenorphine+Norbupre norphine Screen Ql (U) Negative Cutoff: 5 ng/mL [facility] Ethanol Screen Ql (U) Negative Cutoff : 10 mg/dL [facility] fentaNYL Screen Ql (U) Negative Negat akilah ng/mL [facility] HYDROcodone Screen Ql (U) Negative Negative [facility] Interpretation and review of laboratory results Normal [facility] Methadone Screen Ql (U) Negative Negative [facility] Opiates Ql (U) Negative Negative [facility] oxyCODONE Ql (U) Negative Cutoff: 100 ng/mL [facility] Comment on above: Oxycodone and metabo lites of Oxycodone (Oxymorphone, Noroxycodone, and Noroxymorphone) are measured/detected in this assay method. Phencyclidine Ql (U) Negative Negative [facility] Tetrahydrocannabinol Screen Ql (U) Negative Negative [facility] This toxicology scre en provides unconfirmed analytical results suitable for clinical management. Results are reported as positive (at or above the cutoff) or negative (below the cutoff). Amphetamines 1000 ng/mL Barbiturates 200 ng/mL Methadone 300 ng/mL Opiates 300 ng/mL Oxycodone 100 ng/mL Fentanyl 1 ng/mL Hydrocodone 100 ng/mL Benzodiazepines 200 ng/mL Cocaine Metabolite 300 ng/mL PCP 25 ng/mL THC 50 ng/mL Buprenorphine 5 ng/mL Alcohol 10 mg/dL [facility] Progress Noteson 08-26-2024 Performance Solutions Specialist Authentication Interface Message Text Nurse to pod to read PPD Reading of 0.0mm Results added in patients chart. Normal [facility] Performance Solutions Specialist Authentication Interface Message Text Pt reports he had blood in his stool last 2 days. No other symptoms. Will pend occult blood. Normal [facility] [employer] Specialist Authentication Interface Message Text Nurse to pod to read PPD, patient is off the unit at court. Normal [facility] TB INTRADERMAL TESTon 2024 Interpretation and review of laboratory results Normal [facility] reaction [facility] TOXICOLOG[facility] S[facility], UNCONFIRM EDon 08-26-2024 [facility] Negative Normal Negative [facility] Comment on above: Order Comment: This [...] Alcohol 10 mg/dL Performed By: #### T COX BRANSON #### [facility] [address] [place] [address], [phone] BARBIT Negative Normal Negative [facility] Comment on above: Order Comment: This [...] T OX [place] #### [facility] [address] [place] [address], BENZO Negative Normal Negative [facility] Comment on above: Order Comment: This [...] Performed By: #### T OX [place] #### [facility] [address] [place] [address], BUPRENORPHINE Negative Normal Cutoff: 5 [facility] Comment on above: Order Comment: This toxicology [...] T OX [place] #### [facility] [address] [place] [address], COCAINE CL Negative Normal Negative [facility] Comment on above: Order Comment: This [...] T OX [place] #### [facility] [address] [place] [address], Ethanol [Mass/Vol] Negative Normal Cutoff: 1 0 mg/dL [facility] Comment on above: Order Comment: This [...] Performed By: #### T OX [place] #### [facility] [address] [place] [address], FENTANYL Negative Normal Negative [facility] Comment on above: Order Comment: This [...] Performed By: #### T OX [place] #### [facility] [address] [place] [address], HYDROCODONE (PM) Negative Normal Negative [facility] Comment on above: Order Comment: This [...] Performed By: #### T OX [place] #### [facility] [address] [place] [address], Methadone Ql (U) Negative Normal Negative [facility] Comment on above: Order Comment: This [...] Performed By: #### T OX SC #### [facility] [address] [place] [address], OPIATE Negative Normal Negative [facility] Comment on above: Order Comment: This toxicology [...] Performed By: #### T OX SC #### [facility] [address] [place] [address], OXYCODONE Negative Normal Cutoff: 100 [facility] Comment on above: Order Comment: This [...] Performed By: #### T OX [place] #### [facility] [address] [place], [place], PHENCYCL Negative Normal Negative [facility] Comment on above: Order Comment: This [...] 10 mg/dL Performed By: #### T OX [place] #### [facility] [address] [place], [place], THC CL Negative Normal Negative [facility] Comment on above: Order Comment: This [...] 10 mg/dL Performed By: #### T OX [place] #### [facility] [address] [place], [place], Progress Noteson 08-24-2024 Performance Solutions Specialist Authentication Interface Message Text 08/24/24 1613 Pain [...] 34 year old male, [place] [facility] the admission within the last [...] a script of Suboxone from the [facility] , and [facility] [place] last took one [...] series) Never done COVID-19 Vaccine ( - season) Never done HPV Vaccine (optional start [...] or any previous visit (from the past [address] hours). BMP (last 3 years, up to [...] franklin education provided: Inmate educated on the [employer] Admission problem list updated to reflect review and clinical findings Dot Lara RN Normal [facility] Performance Solutions Specialist Authentication Interface Message Text [facility] Care [facility] Chart Review Lindsay Lundberg RN reviewed patient chart 08/24/2024 2:10 PM. ED/Observation/Admissio n last year? Yes. 08/28/2023 Foreign Body Ingestion Psych History/Suicidal Ideation? Yes. Bipolar, History swallowing razor blades and batteries, Anxiety Disorder ADHD Tox Screen 08/29/2023 Positive Cannabinoids, Opiates, Benzos Were they admitted IP for this? Yes Last 04/25/2023 Have they ever been incarcerated before at [facility]? No STI's/HIV Hx? Yes Hep C positive 04/25/2023 TB up to date? No List of current medications (dose and frequency): None on file Any referrals placed? Yes. Psych: Bipolar, history swallowing razor blades, batteries Normal [facility] ANES POSTPROC EVALon 024 ANES POSTPROC EVAL HNO ID: [id number] Author: GORDO BAZAN MD Service: Anesthesiology Author Type: Anesthesiologist Type: Anesthesia Postprocedure Evaluation Filed: 09/01/2023 14:23 Note Text: POST ANESTHESIA EVALUATION NOTE : 1990 Procedure Summary Date: 09/01/23 Room / Location: [place] [address] [place] [address] OR Anesthesia Start: 1300 Anesthesia Stop: 1400 [...] September 01, 2023 TIME: 2:22 PM CSN: [id number] [facility] ANES PRE-OPon 09-01-2023 ANES PRE-OP HNO ID: [id number] Author: GORDO BAZAN MD Service: Anesthesiology Author Type: Anesthesiologist Type: Anesthesia Preprocedure Evaluation Filed: 09/01/2023 13:00 Note Text: ANESTHESIOLOGY DAY OF SURGERY NOTE : 1990 Procedure Information Date/Time: 09/01/23 1145 Procedure: EGD (Abdomen) Location: [place] OR / [place] OR Surgeons: Enrique Chance MD Estimated body [...] 09/01/23 1233 SpO2 100 % 09/01/23 1233 Facility-Administered Medications as of 09/01/2023 Medication Dose Route Frequency [COMPLETED] aluminum-magnesium hydroxide-simethicone 200-200-20 mg/5 mL 30 mL [...] September 01, 2023 TIME: 12:49 PM CSN: [id number] [facility] 09-01-2023 [facility] HNO ID: [id number] Author: MALCOLM MICHAEL MD Service: Hospital Medicine [...] Additional Provider to Provider Information: Presented from longterm after admitting to swallowing two razor blades because he believed he was not receiving the psychiatric care he needed. He was intubated and the razors were removed with EGD. He had two seizures so Neurology started him on Keppra. No MRI ordered per Radiology, so Neuro can do this on follow up. Patient is ok to [facility] back [facility] jail. Operations During Hospitalization: None Procedures During Hospitalization: No procedures performed Labs and Procedures Pending at Discharge: No pending results. Consulting Teams During Hospitalization: Treatment Team: Attending Provider: Malcolm Michael MD Consulting: Juan Kenny MD Consulting: Ann Wong MD Primary Service: PREET COURTNEY None Patient Condition @ Discharge: Good Discharge Disposition: Penitentiary PHYSICAL EXAM: Discharge Physical Exam: VITAL SIGNS: [...] 01, 2023 TIME: 8:16 AM PAGER/CONTACT #: Yolie Ashby [facility] CONSULTon 09-01-2023 CONSULT HNO ID: [id number] Author: MARIO SIM APRN.CNP Service: Gastroenterology Author [...] was getting enough psychiatric care at the longterm. Patient denies SI. Patient was scheduled for discharge back to [facility] today, however prior to departure, patient intentionally [...] times a day.Disp: 60 tabletRfl: 0 Current Facility-Administered Medications Medication Dose Route Frequency [...] Triglyceride (mg/dL) Date Value 04/25/2023 27 EGD 08/27 - Normal esophagus. - Razor blade wrapped in clothe and plastic wrap were found in the stomach. Removal was successful. - Normal examined duodenum. Impression/Recommendati ons Foreign body ingestion- presented 52 following ingestion of razor blades s/p removal via EGD with Dr. Portillo 08/27. P (more content not included)... Normal [facility] NURSING PROGon 09-01-2023 NURSING PROG HNO ID: [id number] Author: LOKI BROOKS RN Service: Nursing Author Type: Registered Nurse [...] to still d/c. Pt d/c back to longterm. Normal [facility] NURSING PROG HNO ID: [id number] Author: LUKE SILVA RN Service: Nursing Author Type: Registered Nurse Type: Nursing Progress Note Filed: 09/01/2023 12:52 Note Text: Dr Bazan notified patient in a lot of pain and requesting pain meds, also nicoderm pathe on right back. Patient IV was bad from floor, was infiltrated. Started new IV Normal [facility] Upper GI endoscopyon 024 Upper GI endoscopy [facility] Gastrointestinal Endoscopy Patient Name: Keke Pemberton Procedure Date: 09/01/2023 12:09 PM Date of : 1990 Admit Type: Inpatient Room: OR Area Gender: Male Note Status: Finalized Attending MD: Enrique Chance MD, [id number] Procedure: Upper GI endoscopy Indications: Epigastric abdominal [...] physician, the nurse, the anesthesiologist and the hogshead opener in the pre-procedure area in the procedure [...] and i (more content not included)... Normal [facility] XR ABDOMEN 1V SUPINEon 08-31 XR ABDOMEN 1V SUPINE * * *Final Report* * * DATE OF EXAM: Sep 01 2023 1:54PM [facility] 5289 - XR ABDOMEN 1V SUPINE / [...] relate to air insufflation or postoperative ileus. Miner Pick: HEAVENLY Transcribe Date/Time: Sep 01 2023 1:58P Dictated by : KIM PHOENIX MD This examination was interpreted and the report reviewed and electronically signed by: KIM PHOENIX MD on Sep 01 2023 2:01PM EST [id number] Normal [facility] XR ABDOMEN 1V SUPINE * * *Final [...] the referring service shortly after this dictation. Miner Pick: PSCB Transcribe Date/Time: Sep 01 2023 11:46A Dictated by : KIM PHOENIX MD This examination was interpreted and the report reviewed and electronically signed by: KIM PHOENIX MD on Sep 01 2023 11:53AM EST [id number] Normal [facility] CASE MANAGEMon 08-31-2023 CASE MANAGEM HNO ID: [id number] Author: JERMAINE VILLALPANDO LSW Service: ? Author Type: Irrigation Foreman Type: Care Mgt Progress Note Filed: 08/31/2023 11:05 Note Text: CARE MANAGEMENT PROGRESS NOTE SERVICE DATE: 08/31/2023 SERVICE TIME: 11:03 AM LOS: 3 days Per attending, Pt likely ready to return to longterm tmw. at bedside. SW spoke with the Logistics System Engineer and updated that dc could very well be tmw. She voiced that there was nothing needed to prepare for dc. Once he is ready for dc, they will arrange transport for him and they will take him. Attending updated. SIGNATURE: RICHELLE Tolliver PATIENT NAME: Keke Pemberton DATE: August 31, 2023 TIME: 11:03 AM PAGER/CONTACT #: [phone] Normal [facility] Basic metabolic 2000 panelon 08-30-2023 Anion gap [Moles/Vol] 10 mmol/L Normal 9-18 [facility] Comment on above: Order Comment: Speci men Type: BLOOD SPECIMEN [facility] Address: [address] [place] [address] Performed By: #### 2 4321-2 #### [facility] CLIA [id number] 1 [place] [address] [place] Calcium [Mass/Vol] 9.2 mg/dL Normal 8.5-10.2 [facility] Comment on above: Order Comment: Speci men Type: BLOOD SPECIMEN [facility] Facility[facility] Address: [address] [place] [address] Performed By: #### 2 4321-2 #### [facility] CLIA [id number] 1 [place] [address] [place] Chloride [Moles/Vol] 105 mmol/L Normal 97-105 [facility] Comment on above: Order Comment: Speci men Type: BLOOD SPECIMEN [facility] Address: [address] [place] [address] Performed By: #### 2 4321-2 #### [facility] CLIA [id number] 1 [place] [address] [place] CO2 [Moles/Vol] 24 mmol/L Normal 22-30 [facility] Comment on above: Order Comment: Speci men Type: BLOOD SPECIMEN [facility] Address: [address] [place] [address] Performed By: #### 2 4321-2 #### [facility] CLIA [id number] [address] [place] Creatinine [Mass/Vol] 0.76 mg/dL Normal 0.73-1.22 [facility] Comment on above: Order Comment: Yeyo velasquez Type: BLOOD SPECIMEN [facility] Address: [address] [place] [address] Performed By: #### 2 4321-2 #### [facility] CLIA [id number] [address] [facility] Creatinine and Glomerular filtration rate.predicted panel (S/P/Bld) 122 mL/min/1.73m??? Normal >=60 [facility] Comment on above: Order Comment: Yeyo velasquez Type: BLOOD SPECIMEN [facility] Address: [address] [place] [address] Result Comment: Erica mated Glomerular Filtration Rate [...] GFR. Performed By: #### 2 4321-2 #### [facility] CLIA [id number] [address] [place] [address] [place] Glucose [Mass/Vol] 92 mg/dL Normal 74-99 [facility] Comment on above: Order Comment: Yeyo velasquez Type: BLOOD SPECIMEN [facility] Address: [address] [place] [address] Result Comment: The [place] [employer] (ADA) provides guidance for cutoff [...] Standards of Medical Care in Diabetes 2016, [place] [employer]. Diabetes Care. 2016.39(Suppl 1). Performed By: #### 2 4321-2 #### [facility] CLIA [id number] [address] Potassium [Moles/Vol] 4.1 mmol/L Normal 3.7-5.1 [facility] Comment on above: Order Comment: Speci men Type: BLOOD SPECIMEN [facility] Address: [address] [place] [address] Performed By: #### 2 4321-2 #### [facility] CLIA [id number] [address] Sodium [Moles/Vol] 139 mmol/L Normal 136-144 [facility] Comment on above: Order Comment: Speci men Type: BLOOD SPECIMEN [facility] Address: [address] [place] [address] Performed By: #### 2 4321-2 #### [facility] CLIA [id number] [address] Urea nitrogen [Mass/Vol] 10 mg/dL Normal 9-24 [facility] Comment on above: Order Comment: Speci men Type: BLOOD SPECIMEN [facility] Address: [address] [place] [address] Performed By: #### 2 4321-2 #### [facility] CLIA [id number] [address] CBC panel Auto (Bld)on 08-29 Erythrocyte distribution width (RBC) [Ratio] 13.3 % Normal 11.5-15.0 [facility] Comment on above: Order Comment: Speci men Type: BLOOD SPECIMEN [facility] Address: [address] [address] Performed By: #### 2 4321-2 #### [facility] CLIA [id number] [address] [place] [address] [place] Hematocrit (Bld) [Volume fraction] 46.7 % Normal 39.0-51.0 [facility] Comment on above: Order Comment: Speci men Type: BLOOD SPECIMEN [facility] Address: [address] [address] Performed By: #### 2 4321-2 #### [facility] CLIA [id number] [address] STATES OF [facility] Hemoglobin (Bld) [Mass/Vol] 15.9 g/dL Normal 13.0-17.0 [facility] Comment on above: Order Comment: Speci men Type: BLOOD SPECIMEN [facility] Address: [address] [place] [address] Performed By: #### 2 1-2 #### [facility] CLIA [id number] [address] STATES OF [facility] MCH (RBC) [Entitic mass] 29.8 pg Normal 26.0-34.0 [facility] Comment on above: Order Comment: Speci men Type: BLOOD SPECIMEN [facility] Address: [address] [address] Performed By: #### 2 1-2 #### [facility] CLIA [id number] [address] [place] MCHC (RBC) [Mass/Vol] 34.0 g/dL Normal 30.5-36.0 [facility] Comment on above: Order Comment: Speci men Type: BLOOD SPECIMEN [facility] Address: [address] [address] Performed By: #### 2 1-2 #### [facility] CLIA [id number] [address] MCV (RBC) [Entitic vol] 87.6 fL Normal 80.0-100.0 [facility] Comment on above: Order Comment: Speci men Type: BLOOD SPECIMEN [facility] Address: [address] [place] [address] Performed By: #### 2 1-2 #### [facility] CLIA [id number] [address] [place] Nucleated RBC (Bld) [#/Vol] 10*3/uL Normal <0.01 [facility] Comment on above: Order Comment: Speci men Type: BLOOD SPECIMEN [facility] Address: [address] [place] [address] Performed By: #### 2 4321-2 #### [facility] CLIA [id number] [address] [place] Platelet mean volume (Bld) [Entitic vol] 9.1 fL Normal 9.0-12.7 [facility] Comment on above: Order Comment: Speci men Type: BLOOD SPECIMEN [facility] Address: [address] [place] [address] Performed By: #### 2 4321-2 #### [facility] CLIA [id number] [address] Platelets (Bld) [#/Vol] 246 10*3/uL Normal 150-400 [facility] Comment on above: Order Comment: Speci men Type: BLOOD SPECIMEN [facility] Address: [address] [place] [address] Performed By: #### 2 4321-2 #### [facility] CLIA [id number] [address] [place] RBC (Bld) [#/Vol] 5.33 10*6/uL Normal 4.20-6.00 [facility] Comment on above: Order Comment: Speci men Type: BLOOD SPECIMEN [facility] Address: [address] [place] [address] Performed By: #### 2 4321-2 #### [facility] CLIA [id number] [address] [place] WBC (Bld) [#/Vol] 10.28 10*3/uL Normal 3.70-11.00 [facility] Comment on above: Order Comment: Speci men Type: BLOOD SPECIMEN [facility] Address: [address] [place] [phone] Performed By: #### 2 4321-2 #### [facility] CLIA [id number] [address] [id number] [place] NURSING PROGon 08-30-2023 NURSING PROG HNO ID: [id number] Author: DIETER TURNER RN Service: Nursing Author Type: Registered Nurse Type: Nursing Progress Note Filed: 08/30/2023 18:39 Note Text: Other: Pt arrived to floor with broom man. Pt remains in bilateral and wrist and ankle shackles. Wrists wrapped in coban to reduce irritation. Pt denies pain; however, he does endorse some anxiety. Sound paged upon transfer. Normal [facility] ALLIED HEALTHon 08-29-2023 ALLIED HEALTH HNO ID: [id number] Author: RAEGAN MORILLO RT(R) Service: Radiology Author [...] PATIENT PRESENTS WITH AN IMPLANTABLE OR ATTACHED HEEL LINING PASTER: No RADIOLOGY DEPARTMENT: CT; Exam(s) Completed: Brain and Spine PERIPHERAL IV DATA: Not applicable SIGNED BY: RT Carolyn(R) August 29, 2023 9:35 AM Normal [facility] Basic metabolic 2000 panelon 08-29-2023 Anion gap [Moles/Vol] 11 mmol/L Normal 9-18 [facility] Comment on above: Order Comment: Speci men Type: BLOOD SPECIMEN [facility] Address: [address] [address] Performed By: #### 2 4321-2 #### [facility] CLIA [id number] [address] [place] Calcium [Mass/Vol] 8.9 mg/dL Normal 8.5-10.2 [facility] Comment on above: Order Comment: Speci men Type: BLOOD SPECIMEN [facility] Address: [address] [address] Performed By: #### 2 4321-2 #### [facility] CLIA [id number] [address] [place] Chloride [Moles/Vol] 103 mmol/L Normal 97-105 [facility] Comment on above: Order Comment: Speci men Type: BLOOD SPECIMEN [facility] Address: [address] [address] Performed By: #### 2 4321-2 #### [facility] CLIA [id number] [address] [place] CO2 [Moles/Vol] 24 mmol/L Normal 22-30 [facility] Comment on above: Order Comment: Speci men Type: BLOOD SPECIMEN [facility] Address: [address] [address] Performed By: #### 2 4321-2 #### [facility] CLIA [id number] [address] [place] Creatinine [Mass/Vol] 0.80 mg/dL Normal 0.73-1.22 [facility] Comment on above: Order Comment: Speci men Type: BLOOD SPECIMEN [facility] Address: [address] [address] Performed By: #### 2 4321-2 #### [facility] CLIA [id number] [address] [place] Creatinine and Glomerular filtration rate.predicted panel (S/P/Bld) 120 mL/min/1.73m??? Normal >=60 [facility] Comment on above: Order Comment: Yeyo velasquez Type: BLOOD SPECIMEN [facility] Address: [address] [place], [place] [id number] Result Comment: Erica mated Glomerular Filtration Rate [...] GFR. Performed By: #### 2 4321-2 #### [facility] CLIA [id number] 1 [place] [address] [place] Glucose [Mass/Vol] 97 mg/dL Normal 74-99 [facility] Comment on above: Order Comment: Yyeo velasquez Type: BLOOD SPECIMEN [facility] Address: [address] [place] [address] Result Comment: The [place] [employer] (ADA) provides guidance for cutoff [...] Standards of Medical Care in Diabetes 2016, [place] [employer]. Diabetes Care. 2016.39(Suppl 1). Performed By: #### 2 4321-2 #### [facility] CLIA [id number] 1 [place] [address] [place] Potassium [Moles/Vol] 3.7 mmol/L Normal 3.7-5.1 [facility] Comment on above: Order Comment: Yeyo velasquez Type: BLOOD SPECIMEN [facility] Address: [address] [id number] Performed By: #### 2 4321-2 #### [facility] CLIA [id number] [address] STATES [facility] Sodium [Moles/Vol] 138 mmol/L Normal 136-144 [facility] Comment on above: Order Comment: Speci men Type: BLOOD SPECIMEN [facility] Address: [address] [address] Performed By: #### 2 4321-2 #### [facility] CLIA [id number] [address] STATES [facility] Urea nitrogen [Mass/Vol] 16 mg/dL Normal 9-24 [facility] Comment on above: Order Comment: Speci men Type: BLOOD SPECIMEN [facility] Address: [address] [address] Performed By: #### 2 4321-2 #### [facility] CLIA [id number] [address] CBC panel Auto (Bld)on 08-28 Erythrocyte distribution width (RBC) [Ratio] 12.9 % Normal 11.5-15.0 [facility] Comment on above: Order Comment: Speci men Type: BLOOD SPECIMENOrdering Facility: [facility] Address: [address] [place] [address] Performed By: #### 5 8410-2 ####[facility] [id number] [address] Hematocrit (Bld) [Volume fraction] 47.0 % Normal 39.0-51.0 [facility] Comment on above: Order Comment: Speci men Type: BLOOD SPECIMENOrdering Facility: [facility] Address: [address] [place] [address] Performed By: #### 5 8410-2 ####[facility] [id number] [address] Hemoglobin (Bld) [Mass/Vol] 16.2 g/dL Normal 13.0-17.0 [facility] Comment on above: Order Comment: Speci men Type: BLOOD SPECIMENOrdering Facility: [facility] Address: [address] [place] [address] Performed By: #### 5 8410-2 ####[facility] [id number] [address] MCH (RBC) [Entitic mass] 30.4 pg Normal 26.0-34.0 [facility] Comment on above: Order Comment: Speci men Type: BLOOD SPECIMENOrdering Facility: [facility] Address: [address] [place] [address] Performed By: #### 5 8410-2 ####[facility] [id number] [address] MCHC (RBC) [Mass/Vol] 34.5 g/dL Normal 30.5-36.0 [facility] Comment on above: Order Comment: Speci men Type: BLOOD SPECIMENOrdering Facility: [facility] Address: [address] [place] [address] Performed By: #### 5 8410-2 ####[facility] [id number] [address] MCV (RBC) [Entitic vol] 88.2 fL Normal 80.0-100.0 [facility] Comment on above: Order Comment: Speci men Type: BLOOD SPECIMENOrdering Facility: [facility] Address: [address] [place] [address] Performed By: #### 5 8410-2 ####[facility] [id number] [address] Nucleated RBC (Bld) [#/Vol] 10*3/uL Normal <0.01 [facility] Comment on above: Order Comment: Speci men Type: BLOOD SPECIMENOrdering Facility: [facility] Address: [address] [place] [address] Performed By: #### 5 8410-2 ####[facility]IA [id number] [address] Platelet mean volume (Bld) [Entitic vol] 9.6 fL Normal 9.0-12.7 [facility] Comment on above: Order Comment: Speci men Type: BLOOD SPECIMENOrdering Facility: [facility] Address: [address] [place] [address] Performed By: #### 5 8410-2 ####[facility]ORY[facility]IA [id number] [address] [place] Platelets (Bld) [#/Vol] 317 10*3/uL Normal 150-400 [facility] Comment on above: Order Comment: Speci men Type: BLOOD SPECIMENOrdering Facility: [facility] Address: [address] [place] [address] Performed By: #### 5 8410-2 ####[facility]CLIA [id number] [address] [place] RBC (Bld) [#/Vol] 5.33 10*6/uL Normal 4.20-6.00 [facility] Comment on above: Order Comment: Speci men Type: BLOOD SPECIMENOrdering Facility: [facility] Address: [address] [place] [address] Performed By: #### 5 8410-2 ####[facility]ORYCLIA [id number] [address] WBC (Bld) [#/Vol] 12.86 10*3/uL High 3.70-11.00 [facility] Comment on above: Order Comment: Speci men Type: BLOOD SPECIMENOrdering Facility: [facility] Address: [address] [place] [address] Performed By: #### 5 8410-2 ####[facility]ORYCLIA [id number] [address] Erythrocyte distribution width (RBC) [Ratio] 13.5 % Normal 11.5-15.0 [facility] Comment on above: Order Comment: Speci men Type: BLOOD SPECIMEN [facility] Address: [address] [place] [address] Performed By: #### 4 024-6, 5643-2, 7 #### [facility] CLIA [id number] [address] [place] [address] [facility] Hematocrit (Bld) [Volume fraction] 44.6 % Normal 39.0-51.0 [facility] Comment on above: Order Comment: Speci men Type: BLOOD SPECIMEN [facility] Address: [address] [place] [address] Performed By: #### 4 024-6, 5643-2, 3297-10 #### [facility] CLIA [id number] [address] [place], [place] [id number] [place] [address] [place] Hemoglobin (Bld) [Mass/Vol] 15.3 g/dL Normal 13.0-17.0 [facility] Comment on above: Order Comment: Speci men Type: BLOOD SPECIMEN [facility] Address: [address] [place] [address] Performed By: #### 4 024-6, 5643-2, 3297-10 #### [facility] CLIA [id number] [address] [place] MCH (RBC) [Entitic mass] 30.2 pg Normal 26.0-34.0 [facility] Comment on above: Order Comment: Speci men Type: BLOOD SPECIMEN [facility] Address: [address] [place] [address] Performed By: #### 4 024-6, 5643-2, 3297-10 #### [facility] CLIA [id number] [address] [place] [address] [place] MCHC (RBC) [Mass/Vol] 34.3 g/dL Normal 30.5-36.0 [facility] Comment on above: Order Comment: Speci men Type: BLOOD SPECIMEN [facility] Address: [address] [place] [address] Performed By: #### 4 024-6, 5643-2, 7 #### [facility] CLIA [id number] [address] [place] [address] [place] MCV (RBC) [Entitic vol] 88.0 fL Normal 80.0-100.0 [facility] Comment on above: Order Comment: Speci men Type: BLOOD SPECIMEN [facility] Address: [address] [place] [address] Performed By: #### 4 024-6, 5643-2, 7 #### [facility] CLIA [id number] [address] [place] [address] [place] Nucleated RBC (Bld) [#/Vol] 10*3/uL Normal <0.01 [facility] Comment on above: Order Comment: Speci men Type: BLOOD SPECIMEN [facility] Address: [address] [place] [address] Performed By: #### 4 024-6, 5643-2, 7 #### [facility] CLIA [id number] [address] [place] [address] [place] Platelet mean volume (Bld) [Entitic vol] 9.3 fL Normal 9.0-12.7 [facility] Comment on above: Order Comment: Speci men Type: BLOOD SPECIMEN [facility] Address: [address] [place] [address] Performed By: #### 4 024-6, 5643-2, 7 #### [facility] CLIA [id number] [address] [place] [address] [place] Platelets (Bld) [#/Vol] 272 10*3/uL Normal 150-400 [facility] Comment on above: Order Comment: Speci men Type: BLOOD SPECIMEN [facility] Address: [address] [place] [address] Performed By: #### 4 024-6, 5643-2, 7 #### [facility] CLIA [id number] [address] [place] [address] [facility] [place] RBC (Bld) [#/Vol] 5.07 10*6/uL Normal 4.20-6.00 [facility] Comment on above: Order Comment: Yeyo velasquez Type: BLOOD SPECIMEN [facility] Address: [address] [place] [address] Performed By: #### 4 024-6, 5643-2, 3298-7 #### [facility] CLIA [id number] [address] [place] [address] [facility] WBC (Bld) [#/Vol] 13.72 10*3/uL High 3.70-11.00 [facility] Comment on above: Order Comment: Yeyo velasquez Type: BLOOD SPECIMEN [facility] Address: [address] [place] [address] Performed By: #### 4 024-6, 5643-2, 3298-7 #### [facility] CLIA [id number] [address] [place] [address] [place] CK SerPl-cCncon 08-29-2023 CK [Catalytic activity/Vol] 739 U/L High 51-298 [facility] Comment on above: Order Comment: Yeyo velasquez Type: BLOOD SPECIMEN [facility] Address: [address] [place] [address] Performed By: #### 2 4321-2 #### [facility] CLIA [id number] [address] OF [facility] CONSULTon 08-29-2023 CONSULT HNO ID: [id number] Author: AMY ODOM DO Service: Psychiatry Author [...] presents after swallowing a razor blade in longterm. Per chart review- pt has had multiple hospitalizations for swallowing foreign objects in order to get out of longterm, in the ED pt denied SI stating that he did it to get attention so he could receive psychiatric medications. UDS positive for benzodiazepines, cannabis, opiates. Psychiatry was consulted for medication recommendations. Last medication regimen (from [facility] in 03/2023): Wellbutrin XL 150, Tegretol 200 BID. Pt is calm, cooperative during interview. States he swallowed razor blades to get his psychiatric medications but then says longterm won't give me my medications anyway so I won't even waste your time. Informed pt that treatment team can start medication in the hospital and provide recommendations to continue prescriptions in longterm. Pt requesting to restart Wellbutrin 150 twice a day and Seroquel 25. States he has taken Wellbutrin for years- helps him w/ depression, has not had any issues on it, notably says bipolar disorder diagnosis was made when he was a child. Says Seroquel helps him w/ sleep. Did not recognize Tegretol prescription. Per motorcycle police in the room prescriptions are given aslong as they are approved by longterm physician. Does Patient Have Any Suicidal Ideations: yes- denies intent/plan STRESSORS: longterm COLLATERAL INFORMATION: will obtain as needed PSYCHIATRIC [...] marijuana SOCIAL HISTORY: (from chart review) Childhood: [place], both parents w/ 3 sisters Education/Employment: HS drop-out, unemployed Relationships/Children: single, 2 children Current Supports: family/friends Legal History: in longterm for felony charges Judaism Affiliation(s): denies Abuse History: denies FAMILY HISTORY Problem Relation Age of Onset Cancer Mother Heart Father PAST MEDICAL HISTORY Diagnosis Date ADHD (attention deficit hyperactivity disorder) PAST SURGICAL HISTORY Procedure Laterality Date NONE Current Facility-Administered Medications Medication Dose Route Frequency nicotine 14 [...] fentaNYL 20 (more content not included)... Normal [facility] CT BRAIN WO IVCONon 08-29-[address] BRAIN WO IVCON * * *Final Report* * * DATE OF EXAM: Aug 29 2023 4:26PM [place] [id number] - CT BRAIN WO IVCON / PROCEDURE [...] IMPRESSION: No evidence of acute intracranial process Miner Pick: PSCB Transcribe Date/Time: Aug 29 2023 5:16P Dictated by : MARIAN PETERSON MD This examination was interpreted and the report reviewed and electronically signed by: MARIAN PETERSON MD on Aug 29 2023 5:19PM EST [id number] Normal [facility] CT BRAIN WO IVCON * * *Final Report* * * DATE OF EXAM: Aug 29 2023 9:36AM [facility] BRAIN WO IVCON [...] nonenhanced brain CT. No acute intracranial abnormalities Miner Pick: PSCB Transcribe Date/Time: Aug 29 2023 9:44A Dictated by : DMITRY PUGA MD This examination was interpreted and the report reviewed and electronically signed by: DMITRY PUGA MD on Aug 29 2023 9:46AM EST [id number] Normal [facility] CT CERVICAL SPINE WO IVCONon 08-29-2023 CT CERVICAL SPINE WO IVCON * * *Final Report* * * DATE OF EXAM: Aug 29 2023 4:26PM [facility] CERVICAL SPINE WO [...] Counting reference: Craniocervical junction. Anatomic Variants: None. Logistics System Engineer (topogram) images: No additional findings. Alignment: Alignment [...] vertebrae with counting from the craniocervical junction. Miner Pick: [employer] Transcribe Date/Time: Aug 29 2023 5:19P Dictated by : MARIAN PETERSON MD This examination was interpreted and the report reviewed and electronically signed by: MARIAN PETERSON MD on Aug 29 2023 5:22PM EST [id number] Normal [facility] CT CERVICAL SPINE WO IVCON * * *Final Report* * * DATE OF EXAM: Aug 29 2023 9:36AM [facility] CT CERVICAL SPINE WO [...] Counting reference: Craniocervical junction. Anatomic Variants: None. Logistics System Engineer (topogram) images: Unremarkable. Alignment: Alignment is anatomic. [...] at C5-6 level due to uncovertebral hypertrophy Miner Pick: HEAVENLY Transcribe Date/Time: Aug 29 2023 9:47A Dictated by : DMITRY PUGA MD This examination was interpreted and the report reviewed and electronically signed by: DMITRY PUGA MD on Aug 29 2023 9:49AM EST [id number] Normal [facility] Comprehensive metabolic 2000 panelon 08-29-2023 Albumin [Mass/Vol] 4.5 g/dL Normal 3.9-4.9 [facility] Comment on above: Order Comment: Speci men Type: BLOOD SPECIMEN [facility] Address: [address] [place] [address] Performed By: #### 2 4321-2 #### [facility] CLIA [id number] [address] ALP [Catalytic activity/Vol] 93 U/L Normal 38-113 [facility] Comment on above: Order Comment: Speci men Type: BLOOD SPECIMEN [facility] Address: [address] [address] Performed By: #### 2 4321-2 #### [facility] CLIA [id number] [address] STATES OF [facility] ALT With P-5'-P [Catalytic activity/Vol] 36 U/L Normal 10-54 [facility] Comment on above: Order Comment: Speci men Type: BLOOD SPECIMEN [facility] Address: [address] [address] Performed By: #### 2 4321-2 #### [facility] CLIA [id number] [address] Anion gap [Moles/Vol] 21 mmol/L High 9-18 [facility] Comment on above: Order Comment: Speci men Type: BLOOD SPECIMEN [facility] Address: [address] [address] Performed By: #### 2 4321-2 #### [facility] CLIA [id number] [address] [place] AST With P-5'-P [Catalytic activity/Vol] 36 U/L Normal 14-40 [facility] Comment on above: Order Comment: Speci men Type: BLOOD SPECIMEN [facility] Address: [address] [place] [address] Performed By: #### 2 4321-2 #### [facility] CLIA [id number] [address] [place] Bilirubin [Mass/Vol] 0.7 mg/dL Normal 0.2-1.3 [facility] Comment on above: Order Comment: Speci men Type: BLOOD SPECIMEN [facility] Address: [address] [place] [address] Performed By: #### 2 4321-2 #### [facility] CLIA [id number] [address] [place] Calcium [Mass/Vol] 9.2 mg/dL Normal 8.5-10.2 [facility] Comment on above: Order Comment: Speci men Type: BLOOD SPECIMEN [facility] Address: [address] [place] [address] Performed By: #### 2 4321-2 #### [facility] CLIA [id number] [address] [place] Chloride [Moles/Vol] 97 mmol/L Normal 97-105 [facility] Comment on above: Order Comment: Speci men Type: BLOOD SPECIMEN [facility] Address: [address] [place] [address] Performed By: #### 2 4321-2 #### [facility] CLIA [id number] [address] [place] CO2 [Moles/Vol] 18 mmol/L Low 22-30 [facility] Comment on above: Order Comment: Speci men Type: BLOOD SPECIMEN [facility] Address: [address] [place] [address] Performed By: #### 2 4321-2 #### [facility] CLIA [id number] [address] [place] Creatinine [Mass/Vol] 0.81 mg/dL Normal 0.73-1.22 [facility] Comment on above: Order Comment: Yeyo velasquez Type: BLOOD SPECIMEN [facility] Address: [address] [place] [address] Performed By: #### 2 4321-2 #### [facility] CLIA [id number] [address] [facility] Creatinine and Glomerular filtration rate.predicted panel (S/P/Bld) 119 mL/min/1.73m??? Normal >=60 [facility] Comment on above: Order Comment: Yeyo velasquez Type: BLOOD SPECIMEN [facility] Address: [address] [place] [address] Result Comment: Erica mated Glomerular Filtration Rate [...] GFR. Performed By: #### 2 4321-2 #### [facility] CLIA [id number] [address] STATES OF [facility] Glucose [Mass/Vol] 207 mg/dL High 74-99 [facility] Comment on above: Order Comment: Yeyo velasquez Type: BLOOD SPECIMEN [facility] Address: [address] [address] Result Comment: The [place] [employer] (ADA) provides guidance for cutoff [...] Standards of Medical Care in Diabetes 2016, [place] [employer]. Diabetes Care. 2016.39(Suppl 1). Performed By: #### 2 4321-2 #### [facility] CLIA [id number] [address] Potassium [Moles/Vol] 3.4 mmol/L Low 3.7-5.1 [facility] Comment on above: Order Comment: Yeyo velasquez Type: BLOOD SPECIMEN [facility] Address: [address] [place] [address] Performed By: #### 2 4321-2 #### [facility] CLIA [id number] [address] Protein [Mass/Vol] 7.3 g/dL Normal 6.3-8.0 [facility] Comment on above: Order Comment: Yeyo velasquez Type: BLOOD SPECIMEN [facility] Address: [address] [place] [address] Performed By: #### 2 4321-2 #### [facility] CLIA [id number] [address] Urea nitrogen [Mass/Vol] 10 mg/dL Normal 9-24 [facility] Comment on above: Order Comment: Yeyo velasquez Type: BLOOD SPECIMEN [facility] Address: [address] [place] [address] Performed By: #### 2 4321-2 #### [facility] CLIA [id number] [address] [place] ECG COMPLETEon 08-29-2023 ECG COMPLETE Ventricular Rate : 5 3 BPM Atrial Rate : 53 BPM P-R Interval : 148 ms QRS Duration : 86 ms Q-T Interval : 400 ms QTC Calculation(Bazett) : 375 ms Calculated P Jefferson : 56 degrees Calculated R Jefferson : 73 degrees Calculated T Jefferson : 68 degrees SINUS BRADYCARDIA OTHERWISE NORMAL ECG WHEN COMPARED WITH ECG OF 09-Dec-2022 05:31, VENT. RATE HAS DECREASED by 48 bpm QT HAS SHORTENED Confirmed by MD PROCTOR KAMALESH ([id number]) on 08/29/2023 1:42:21 PM NAME : KEKE PEMBERTON PID : [id number] : 1990 Gender : Male Race : ORD : [id number] Procedure Date : Aug 29 2023 00:23:11 Edit Date : Aug 29 2023 13:42:27 Diagnosis: SINUS BRADYCARDIA OTHERWISE NORMAL ECG WHEN COMPARED WITH ECG OF 09-Dec-2022 05:31, VENT. RATE HAS DECREASED by 48 bpm QT HAS SHORTENED Confirmed by MD PROCTOR KAMALESH ([id number]) on 08/29/2023 1:42:21 PM Test Reason : Check QT Location : [address] : [place] [address] Overread By : MD PROCTOR KAMALESH Edited By : MD PROCTOR KAMALESH Referred By : , Acquired by : RAEGAN WEISS Normal [facility] Gas + CO Pnl BldVon 08-29-19 24 Sodium [Moles/Vol] 136 mmol/L Normal 136-144 [facility] Comment on above: Order Comment: Speci men Type: BLOOD SPECIMEN [facility] Address: [address] [place] [address] Performed By: #### 2 4321-2 #### [facility] CLIA [id number] [address] OF [facility] Gas and Carbon monoxide pane l (BldV)on 08-29-2023 BASE DEFICIT, VENOUS -5 mmol/L Low -2-0 [facility] Comment on above: Order Comment: Speci men Type: BLOOD SPECIMEN [facility] Address: [address] [address] Performed By: #### 2 4321-2 #### [facility] CLIA [id number] [address] [place] Body temperature 98.6 [degF] Normal [facility] Comment on above: Order Comment: Speci men Type: BLOOD SPECIMEN [facility] Address: [address] [address] Performed By: #### 2 4321-2 #### [facility] CLIA [id number] [address] Calcium.ionized (BldV) [Mass/Vol] 1.12 mmol/L Normal 1.08-1.30 [facility] Comment on above: Order Comment: Speci men Type: BLOOD SPECIMEN [facility] Address: [address] [place] [address] Performed By: #### 2 4321-2 #### [facility] CLIA [id number] [address] Calcium.ionized adjusted to pH 7.4 (BldA) [Moles/Vol] 1.10 mmol/L Normal 1.08-1.30 [facility] Comment on above: Order Comment: Speci men Type: BLOOD SPECIMEN [facility] Address: [address] [place] [address] Performed By: #### 2 4321-2 #### [facility] CLIA [id number] [address] Carboxyhemoglobin (BldV) [Mass fraction] 1.6 % Normal 0.0-2.0 [facility] Comment on above: Order Comment: Speci men Type: BLOOD SPECIMEN [facility] Address: [address] [place] [address] Result Comment: Carb oxyhemoglobin Reference Range for Smokers: 2.0-8.0% Performed By: #### 2 4321-2 #### [facility] CLIA [id number] [address] OF [facility] Chloride [Moles/Vol] 103 mmol/L Normal 102-109 [facility] Comment on above: Order Comment: Speci men Type: BLOOD SPECIMEN [facility] Address: [address] [place] [address] Performed By: #### 2 4321-2 #### [facility] CLIA [id number] [address] CO2 (BldV) [Partial pressure] 35 mm[Hg] Low 42-55 [facility] Comment on above: Order Comment: Speci men Type: BLOOD SPECIMEN [facility] Address: [address] [address] Performed By: #### 2 4321-2 #### [facility] CLIA [id number] [address] [place] Glucose [Mass/Vol] 233 mg/dL High 60-105 [facility] Comment on above: Order Comment: Speci men Type: BLOOD SPECIMEN [facility] Address: [address] [address] Performed By: #### 2 4321-2 #### [facility] CLIA [id number] [address] [place] HCO3 (Bld) [Moles/Vol] 19 mmol/L Low 24-28 [facility] Comment on above: Order Comment: Speci men Type: BLOOD SPECIMEN [facility] Address: [address] [address] Performed By: #### 2 4321-2 #### [facility] CLIA [id number] [address] [place] Hematocrit (Bld) [Volume fraction] 50.1 % Normal 39.0-51.0 [facility] Comment on above: Order Comment: Speci men Type: BLOOD SPECIMEN [facility] Address: [address] [address] Performed By: #### 2 4321-2 #### [facility] CLIA [id number] [address] [place] Hemoglobin (Bld) [Mass/Vol] 16.4 g/dL Normal 13.0-17.0 [facility] Comment on above: Order Comment: Speci men Type: BLOOD SPECIMEN [facility] Address: [address] [address] Performed By: #### 2 4321-2 #### [facility] CLIA [id number] [address] [place] Lactate [Moles/Vol] 8.3 mmol/L High 0.5-2.2 [facility] Comment on above: Order Comment: Speci men Type: BLOOD SPECIMEN [facility] Address: [address] [place] [address] Performed By: #### 2 4321-2 #### [facility] CLIA [id number] [address] [place] Methemoglobin (Bld) [Mass fraction] 0.4 % Normal 0.0-1.5 [facility] Comment on above: Order Comment: Speci men Type: BLOOD SPECIMEN [facility] Address: [address] [place] [address] Performed By: #### 2 4321-2 #### [facility] CLIA [id number] [address] O2 THERAPY RA=Room Air Normal [facility] Comment on above: Order Comment: Speci men Type: BLOOD SPECIMEN [facility] Address: [address] [place] [address] Performed By: #### 2 4321-2 #### [facility] CLIA [id number] [address] [place] Oxygen (BldV) [Partial pressure] 52 mm[Hg] High 35-45 [facility] Comment on above: Order Comment: Speci men Type: BLOOD SPECIMEN [facility] Address: [address] [address] Performed By: #### 2 4321-2 #### [facility] CLIA [id number] [address] [place] Oxygen saturation in Venous blood 86 % High 60-85 [facility] Comment on above: Order Comment: Speci men Type: BLOOD SPECIMEN [facility] Address: [address] [address] Performed By: #### 2 4321-2 #### [facility] CLIA [id number] [address] [place] Oxyhemoglobin (BldV) [Mass fraction] 84 % Normal 60-85 [facility] Comment on above: Order Comment: Speci men Type: BLOOD SPECIMEN [facility] Address: [address] [place] [address] Performed By: #### 2 4321-2 #### [facility] CLIA [id number] [address] pH (BldV) 7.36 [pH] Normal 7.32-7.42 [facility] Comment on above: Order Comment: Speci men Type: BLOOD SPECIMEN [facility] Address: [address] [place] [address] Performed By: #### 2 4321-2 #### [facility] CLIA [id number] [address] Potassium [Moles/Vol] 3.3 mmol/L Low 3.5-5.0 [facility] Comment on above: Order Comment: Speci men Type: BLOOD SPECIMEN [facility] Address: [address] [place] [address] Performed By: #### 2 4321-2 #### [facility] CLIA [id number] [address] [place] HISTORY PHYSICALon HISTORY PHYSICAL HNO ID: [id number] Author: PHYLLIS HOOKS APRN.BRUSH HOLDER INSPECTOR Service: Neurology ICU Author Type: Nurse Practitioner Type: H&P Filed: 08/29/2023 17:21 Note Text: SERVICE DATE: 08/29/2023 SERVICE TIME: 5:20 PM NEUROLOGICAL INTENSIVE CARE UNIT HISTORY AND PHYSICAL REASON FOR ADMISSION: seizure like activity Subjective HPI: 33 yo M w/ psychiatric history of mood disorder, cluster B personality traits, ADHD, polysubstance abuse who presents after swallowing a razor blade in longterm. Per chart review- pt has had multiple hospitalizations for swallowing foreign objects in order to get out of longterm, in the ED pt denied SI stating [...] commands Total: 14 Pt resting in bed. aircraft electronics technical officer and RN at bedside pt is in hand cuffs and belly chain. Oriented to person and place states month as July Speech clear No facial asym FROST x4 no focal weakness DATA: Diagnostic tests reviewed for today's visit: Most recent labs and imaging results. Lines, Drains, and Airways Line Duration Peripheral 08/28/23 1845 [place] Left Forearm 20 Gauge <1 day Peripheral [...] presents after swallowing a razor blade in longterm. Per chart review- pt has had multiple hospitalizations for swallowing foreign objects in order to get out of longterm, in the ED pt denied SI stating [...] Problems as of 08/29/2023 Noted - Resolved [facility] Current smoker 04/25/2023 - Present Yes [...] Service: Neurology ICU Medication and Non-Pharmacologic VTE Prophylaxis/Anticoagula nts Anticoagulant AND Antiplatelet Medications (From admission, onward) Start Dose Route Frequency Last Action Ordered Stop 08/29/23 1000 enoxaparin 40 mg injection (LOVENOX) (enoxaparin injection (LOVENOX)) 40 mg SUBCUTANEOUS EVERY 24 JOANA (more content not included)... Normal [facility] Magnesium SerPl-mCncon 08-28 Magnesium [Mass/Vol] 2.3 mg/dL Normal 1.7-2.3 [facility] Comment on above: Order Comment: Speci men Type: BLOOD SPECIMEN [facility] Address: [address] [place] [address] Performed By: #### 2 4321-2 #### [facility] CLIA [id number] [address] Magnesium [Mass/Vol] 2.3 mg/dL Normal 1.7-2.3 [facility] Comment on above: Order Comment: Speci men Type: BLOOD SPECIMENOrdering Facility: [facility] Address: [address] [id number] Performed By: #### 1 9123-9 ####[facility] [id number] [address] OF [facility] NURSING PROGon 08-29-2023 NURSING PROG HNO ID: [id number] Author: JORGE BOURGEOIS RN Service: Nursing Author Type: Registered Nurse Type: Nursing Progress Note Filed: 08/29/2023 16:11 Note Text: Post Fall Assessment PATIENT NAME: Keke Pemberton Patient Location: [place] [address] 04-28 Room: [place] [address] Witnessed: No How did fall occur: Getting out of bed/chair Location: Patient room Contributing factors: SPONTANEOUS URGENCY Brief factual description: Unwitnessed fall. Logistics System Engineer states pt was resting comfortably in bed, [...] applied This note was completed by:Jorge Ashby [facility] NURSING PROG HNO ID: [id number] Author: JORGE BOURGEOIS, RN Service: Nursing Author Type: Registered Nurse Type: Nursing Progress Note Filed: 08/29/2023 16:07 Note Text: Post Fall Assessment PATIENT NAME: Keke Pemberton Patient Location: [place] [address] [address] 04-28 Room: [address] Witnessed: Yes How did fall occur: Pt [...] Immediate actions taken: c-collar applied, backboard appliued, MD made aware, assisted back to bed / chair, Diagnostic testing EEG. Name of LIP notified: Dr Reyes, dR Pruett Notify family as appropriate: will notify Post fall interventions: Bed Alarm On, Frequent Observation, and yellow socks, constant complanion This note was completed by:Jorge Bourgeois Normal [facility] TOXICOLOGY SCREEN, ROUTINE U RINEon 08-29-2023 Amphetamines Confirm (U) [Mass/Vol] Negative Normal Negative [facility] Comment on above: Order Comment: Speci men Type: BLOOD SPECIMEN [facility] Address: [address] [place] [address] Result Comment: Cuto ff threshold at 1000 ng/mL. Performed By: #### 4 024-6, 5643-2, 3298-7 #### [facility] CLIA [id number] [address] [place] [address] [place] BARBITURATES, URINE Negative Normal Negative [facility] Comment on above: Order Comment: Speci men Type: BLOOD SPECIMEN [facility] Address: [address] [place] [address] Result Comment: Cuto ff threshold at 200 ng/mL. Performed By: #### 4 024-6, 5643-2, 3297-10 #### [facility] CLIA [id number] [address] [facility] [place] [address] [place] BENZODIAZEPINES, UR Positive Abnormal Negative [facility] Comment on above: Order Comment: Speci men Type: BLOOD SPECIMEN [facility] Address: [address] [place] [address] Result Comment: Cuto ff threshold at 200 ng/mL. Performed By: #### 4 024-6, 5643-2, 3297-10 #### [facility] CLIA [id number] [address] [place] [address] [place] Cannabinoids Screen Ql (U) Positive Abnormal Negative [facility] Comment on above: Order Comment: Speci men Type: BLOOD SPECIMEN [facility] Address: [address] [place] [address] Result Comment: Cuto ff threshold at 50 ng/mL. Performed By: #### 4 024-6, 5643-2, 3297-10 #### [facility] CLIA [id number] [address] [place] [address] [place] Cocaine Ql (U) Negative Normal Negative [facility] Comment on above: Order Comment: Speci men Type: BLOOD SPECIMEN [facility] Address: [address] [place] [address] Result Comment: Cuto ff threshold at 300 ng/mL. Performed By: #### 4 024-6, 5643-2, 3297-10 #### [facility] CLIA [id number] [address] [place] [address] [place] Ethanol (U) [Mass/Vol] <11 Normal <11 [facility] Comment on above: Order Comment: Speci men Type: BLOOD SPECIMEN [facility] Address: [address] [place] [address] Performed By: #### 4 024-6, 5643-2, 7 #### [facility] CLIA [id number] [address] [place] [address] Opiates Screen Ql (U) Positive Abnormal Negative [facility] Comment on above: Order Comment: Speci men Type: BLOOD SPECIMEN [facility] Address: [address] [place] [address] Result Comment: Cuto ff threshold at 300 ng/mL. Performed By: #### 4 024-6, 5643-2, 3298-7 #### [facility] CLIA [id number] [address] [place] [address] oxyCODONE cutoff Screen (U) [Mass/Vol] Negative Normal Negative [facility] Comment on above: Order Comment: Speci men Type: BLOOD SPECIMEN [facility] Address: [address] [place] [address] Result Comment: Cuto ff threshold at 100 ng/mL. Performed By: #### 4 024-6, 5643-2, 32987 #### [facility] CLIA [id number] [address] [place] [address] Phencyclidine Ql (U) Negative Normal Negative [facility] Comment on above: Order Comment: Speci men Type: BLOOD SPECIMEN [facility] Address: [address] [place] [address] Result Comment: Cuto ff threshold at 25 ng/mL. Performed By: #### 4 024-6, 5643-2, 3298-7 #### [facility] CLIA [id number] [address] [place] [address] Urinalysis complete panel (U )on 08-29-2023 Bilirubin Ql (U) Negative Normal Negative [facility] Comment on above: Order Comment: Speci men Type: URINE SPECIMENOrdering Facility: [facility] Address: [address] [place] [address] Performed By: #### 2 4356-8 ####[facility]IA [id number] [place], [place] [address] [place] [address] [place] Clarity (Unsp spec) Clear Normal Clear [facility] Comment on above: Order Comment: Speci men Type: URINE SPECIMENOrdering Facility: [facility] Address: [address] [place] [address] Performed By: #### 2 4356-8 ####[facility]IA [id number] [address] STATES OF [facility] Color (U) Colorless Normal yellow [facility] Comment on above: Order Comment: Speci men Type: URINE SPECIMENOrdering Facility: [facility] Address: [address] [place] [address] Performed By: #### 2 4356-8 ####[facility]ORY[facility]IA [id number] [address] OF [facility] Glucose Test strip (U) [Mass/Vol] Negative Normal Trace, Negative [facility] Comment on above: Order Comment: Speci men Type: URINE SPECIMENOrdering Facility: [facility] Address: [address] [place] [address] Performed By: #### 2 4356-8 ####[facility]ORY[facility]IA [id number] [place] [address] [place] Hemoglobin Ql (U) Negative Normal Negative, Trace [facility] Comment on above: Order Comment: Speci men Type: URINE SPECIMENOrdering Facility: [facility] Address: [address] [place] [address] Performed By: #### 2 4356-8 ####[facility]ORY[facility]IA [id number] [address] [place] Ketones Ql (U) Negative Normal Negative, Trace [facility] Comment on above: Order Comment: Speci men Type: URINE SPECIMENOrdering Facility: [facility] Address: [address] [place] [address] Performed By: #### 2 4356-8 ####[facility]ORY[facility]IA [id number] [address] [place] Leukocyte esterase Test strip Ql (U) Negative Normal Negative, 25 Shawn/uL [facility] Comment on above: Order Comment: Speci men Type: URINE SPECIMENOrdering Facility: [facility] Address: [address] [place] [address] Performed By: #### 2 4356-8 ####[facility]ORYCLIA [id number] [place] [address] [place] [facility] Nitrite Ql (U) Negative Normal Negative [facility] Comment on above: Order Comment: Speci men Type: URINE SPECIMENOrdering Facility: [facility] Address: [address] [place] [address] Performed By: #### 2 4356-8 ####[facility]ORYCLIA [id number] [address] [place] pH (U) 7.0 [pH] Normal 5.0-8.0 [facility] Comment on above: Order Comment: Speci men Type: URINE SPECIMENOrdering Facility: [facility] Address: [address] [place] [address] Performed By: #### 2 4356-8 ####[facility]ORYCLIA [id number] [place] [address] [place] Protein (U) [Mass/Vol] Negative Normal Trace , Negative [facility] Comment on above: Order Comment: Speci men Type: URINE SPECIMENOrdering Facility: [facility] Address: [address] [place] [address] Performed By: #### 2 4356-8 ####[facility]ORYCLIA [id number] [place] [address] [place] RBC LM.HPF (Urine sed) [#/Area] 0-3 /HPF Normal 0-3 /HPF [facility] Comment on above: Order Comment: Speci men Type: URINE SPECIMENOrdering Facility: [facility] Address: [address] [place] [address] Performed By: #### 2 4356-8 ####[facility]ORYCLIA [id number] [address] [place] Specific gravity (U) [Rel density] 1.006 Normal 1.005-1.030 [facility] Comment on above: Order Comment: Speci men Type: URINE SPECIMENOrdering Facility: [facility] Address: [address] [place] [address] Performed By: #### 2 4356-8 ####[facility]ORYCLIA [id number] [place] [address] [facility] Urobilinogen Ql (U) Normal Normal Normal [facility] Comment on above: Order Comment: Speci men Type: URINE SPECIMENOrdering Facility: [facility] Address: [address] [place] [address] Performed By: #### 2 4356-8 ####[facility]ORYCLIA [id number] [place] [id number] [facility] [place] WBC LM.HPF (Urine sed) [#/Area] 0-5 /HPF Normal 0-5 /HPF [facility] Comment on above: Order Comment: Speci men Type: URINE SPECIMENOrdering Facility: [facility] Address: [address] [place] [address] Performed By: #### 2 4356-8 ####[facility]ORYCLIA [id number] [address] [place] XR ABDOMEN 1V SUPINEon 08-28 [...] within nondilated large and small bowel loops. Miner Pick: HEAVENLY Transcribe Date/Time: Aug 28 2023 11:03P Dictated by : HORACIO MORENO MD This examination was interpreted and the report reviewed and electronically signed by: HORACIO MORENO MD on Aug 28 2023 11:07PM EST [id number] Normal [facility] XR CERVICAL SPECIFY 1Von XR CERVICAL SPECIFY [...] 2315 hours EST 08/28/2023 via verbal communication. Miner Pick: PSCB Transcribe Date/Time: Aug 28 2023 11:07P Dictated by : MALORIE DAIGLE MD This examination was interpreted and the report reviewed and electronically signed by: MALORIE DAIGLE MD on Aug 28 2023 11:25PM EST [id number] Normal [facility] XR CHEST 1V FRONTALon 2023 XR CHEST 1V FRONTAL * * *Final Report* * * DATE OF EXAM: Aug 28 2023 10:35PM AKX [id number] - XR CHEST 1V FRONTAL / PROCEDURE REASON: Post-operative/post-pro cedure assessment * * * * Physician Interpretation * * * * EXAMINATION: CHEST RADIOGRAPH (SINGLE VIEW AP OR PA) CLINICAL HISTORY: Post-operative/post-pro cedure assessment, Other, foreign body MQ: XC1_5 Comparison: 08/28/2023 at 4 3:00 PM RESULT: See impression. IMPRESSION: Lines, tubes, and devices: Interval placement of endotracheal tube with the tip approximately 2 cm above the level of the franco. Lungs and pleura: No consolidation. No pneumothorax. No visualized pleural effusion. Cardiomediastinal silhouette: Within normal limits and stable. Other: No radiopaque foreign body identified. Miner Pick: HEAVENLY Transcribe Date/Time: Aug 28 2023 10:59P Dictated by : HORACIO MORENO MD This examination was interpreted and the report reviewed and electronically signed by: HORACIO MORENO MD on Aug 28 2023 11:02PM EST [id number] Normal [facility] [id number] 08-28-2023 [id number] HNO ID: [id number] Author: INO UNDERWOOD MD Service: Critical Care Author Type: Registered Nurse Type: [id number] Filed: 08/28/2023 21:57 Note Text: Attestation signed by Ino Underwood MD at 08/28/2023 9:57 PM [facility] STAFF PHYSICIAN NOTE OF PERSONAL INVOLVEMENT IN CARE I have reviewed the titration note documented by the nurse and I personally participated in the franklin components. Ino Underwood MD 9:57 PM August 28, 2023 Medication Titration/ Urgent Event Patient Name: Keke Pemberton Patient Location: [place] [address] [address] 04-28 Room: [place] [address] Event start time: 2039 Patient experiencing urgent clinical event requiring continuous RN presence at bedside. Medications(s) are titrated/administered per Physician/LIP orders Additional interventions included intubation [...] PM This note was completed by:Perfecto Ashby [facility] CBC panel Auto (Bld)on 08-27 Erythrocyte distribution width (RBC) [Ratio] 12.9 % Normal 11.5-15.0 [facility] Comment on above: Order Comment: Yeyo velasquez Type: BLOOD SPECIMEN [facility] Facility[facility] Address: [address] [place] [address] Performed By: #### 5 8410-2 #### [facility] CLIA [id number] [address] [place] [address] [facility] Hematocrit (Bld) [Volume fraction] 46.5 % Normal 39.0-51.0 [facility] Comment on above: Order Comment: Yeyo velasquez Type: BLOOD SPECIMEN Ordering Facility: [facility] Address: [address] [place] [address] Performed By: #### 5 8410-2 #### [facility] CLIA [id number] [address] [place] [address] [place] OF [facility] Hemoglobin (Bld) [Mass/Vol] 15.6 g/dL Normal 13.0-17.0 [facility] Comment on above: Order Comment: Yeyo velasquez Type: BLOOD SPECIMEN [facility]ing Facility: [facility] Address: [address] [place] [address] Performed By: #### 5 8410-2 #### [facility] CLIA [id number] [address] [place] [address] [place] MCH (RBC) [Entitic mass] 29.7 pg Normal 26.0-34.0 [facility] Comment on above: Order Comment: Speci men Type: BLOOD SPECIMEN [facility]ing Facility[facility] Address: [address] [place] [address] Performed By: #### 5 8410-2 #### [facility] CLIA [id number] [address] MCHC (RBC) [Mass/Vol] 33.5 g/dL Normal 30.5-36.0 [facility] Comment on above: Order Comment: Speci men Type: BLOOD SPECIMEN [facility]ing Facility[facility] Address: [address] [place] [address] Performed By: #### 5 8410-2 #### [facility] CLIA [id number] [address] OF [facility] MCV (RBC) [Entitic vol] 88.6 fL Normal 80.0-100.0 [facility] Comment on above: Order Comment: Speci men Type: BLOOD SPECIMEN [facility]ing Facility[facility] Address: [address] [place] [address] Performed By: #### 5 8410-2 #### [facility] CLIA [id number] [address] Nucleated RBC (Bld) [#/Vol] 10*3/uL Normal <0.01 [facility] Comment on above: Order Comment: Speci men Type: BLOOD SPECIMEN [facility] Address: [address] [place] [address] Performed By: #### 5 8410-2 #### [facility] CLIA [id number] [address] Platelet mean volume (Bld) [Entitic vol] 9.6 fL Normal 9.0-12.7 [facility] Comment on above: Order Comment: Speci men Type: BLOOD SPECIMEN [facility] Address: [address] [place] [address] Performed By: #### 5 8410-2 #### [facility] CLIA [id number] [address] [facility] Platelets (Bld) [#/Vol] 274 10*3/uL Normal 150-400 [facility] Comment on above: Order Comment: Speci men Type: BLOOD SPECIMEN [facility] Address: [address] [place] [address] Performed By: #### 5 8410-2 #### [facility] CLIA [id number] [address] [facility] RBC (Bld) [#/Vol] 5.25 10*6/uL Normal 4.20-6.00 [facility] Comment on above: Order Comment: Speci men Type: BLOOD SPECIMEN [facility] Address: [address] [place] [address] Performed By: #### 5 8410-2 #### [facility] CLIA [id number] [address] WBC (Bld) [#/Vol] 10.96 10*3/uL Normal 3.70-11.00 [facility] Comment on above: Order Comment: Speci men Type: BLOOD SPECIMEN [facility] Address: [address] [place] [address] Performed By: #### 5 8410-2 #### [facility] CLIA [id number] [address] CONSULTon 08-28-2023 CONSULT HNO ID: [id number] Author: MC PORTILLO MD Service: Gastroenterology Author Type: Physician Type: Consults Filed: 08/28/2023 21:28 Note Text: Department of Gastroenterology AND Hepatology Initial Consult Note Date of Service: August 28, 2023 Patient: Keke Pemberton Medical Record: [id number] Reason for Admission / Consultation: Opinion/Advice regarding FB removal Gastroenterology Attending: Mc Portillo MD Referring Provider: Keke Pemberton [id number] Mc Portillo MD My final recommendations will be communicated back to the requesting physician by way of shared medical record or letter via US mail Impression: Keke Pemberton is a 33 year old has a past medical history of ADHD (attention deficit hyperactivity disorder)., bipolar, anxiety, prior h/o swallowed Fb presented from [facility] after swallowing razor blade. #Foreign body ingestion Per pt swallowed razor blade KUB FB in fundus Most recent labs and imaging results. Plan: Emergent EGD after intubation Pt gave consent Mc Portillo MD Gastroenterology, Hepatology and Nutrition Advanced Endoscopy ==== History of Present Illness: Keke Pemberton is a 33 year old has a past medical history of ADHD (attention deficit hyperactivity disorder)., bipolar, anxiety, prior h/o swallowed Fb presented from [facility] after swallowing razor blade. Per pt [...] daily at 6 am.Disp: 30 tabletRfl: 0 buprenorphine-naloxone (SUBOXONE) 8-2 mg filmDissolve 2 Film under [...] assistance is availableDisp: 2 EachRfl: 0 Current Facility-Administered Medications Medication Dose Route Frequency [...] Mc Portillo (more content not included)... Normal [facility] Comprehensive metabolic 2000 panelon 08-28-2023 Albumin [Mass/Vol] 4.4 g/dL Normal 3.9-4.9 [facility] Comment on above: Order Comment: Speci men Type: BLOOD SPECIMEN [facility] Address: [address] [place] [address] Performed By: #### 2 4321-2 #### [facility] CLIA [id number] [address] [place] [address] ALP [Catalytic activity/Vol] 90 U/L Normal 38-113 [facility] Comment on above: Order Comment: Speci men Type: BLOOD SPECIMEN [facility] Address: [address] [place] [address] Performed By: #### 2 4321-2 #### [facility] CLIA [id number] [address] [facility] ALT With P-5'-P [Catalytic activity/Vol] 36 U/L Normal 10-54 [facility] Comment on above: Order Comment: Speci men Type: BLOOD SPECIMEN [facility] Address: [address] [place] [address] Performed By: #### 2 4321-2 #### [facility] CLIA [id number] [address] Anion gap [Moles/Vol] 12 mmol/L Normal 9-18 [facility] Comment on above: Order Comment: Speci men Type: BLOOD SPECIMEN [facility] Address: [address] [place] [address] Performed By: #### 2 4321-2 #### [facility] CLIA [id number] [address] STATES OF [facility] AST With P-5'-P [Catalytic activity/Vol] 39 U/L Normal 14-40 [facility] Comment on above: Order Comment: Speci men Type: BLOOD SPECIMEN [facility] Address: [address] [place] [address] Performed By: #### 2 4321-2 #### [facility] CLIA [id number] [address] [place] Bilirubin [Mass/Vol] 0.5 mg/dL Normal 0.2-1.3 [facility] Comment on above: Order Comment: Speci men Type: BLOOD SPECIMEN [facility] Address: [address] [place] [address] Performed By: #### 2 4321-2 #### [facility] CLIA [id number] [address] [place] Calcium [Mass/Vol] 9.1 mg/dL Normal 8.5-10.2 [facility] Comment on above: Order Comment: Speci men Type: BLOOD SPECIMEN [facility] Address: [address] [place] [address] Performed By: #### 2 4321-2 #### [facility] CLIA [id number] [address] [place] Chloride [Moles/Vol] 106 mmol/L High 97-105 [facility] Comment on above: Order Comment: Speci men Type: BLOOD SPECIMEN [facility] Address: [address] [place] [address] Performed By: #### 2 4321-2 #### [facility] CLIA [id number] [address] [place] CO2 [Moles/Vol] 22 mmol/L Normal 22-30 [facility] Comment on above: Order Comment: Speci men Type: BLOOD SPECIMEN [facility] Address: [address] [place] [address] Performed By: #### 2 4321-2 #### [facility] CLIA [id number] [address] STATES OF [facility] Creatinine [Mass/Vol] 0.70 mg/dL Low 0.73-1.22 [facility] Comment on above: Order Comment: Speceli men Type: BLOOD SPECIMEN [facility] Address: [address] [place] [address] Performed By: #### 2 4321-2 #### [facility] CLIA [id number] [address] Creatinine and Glomerular filtration rate.predicted panel (S/P/Bld) 125 mL/min/1.73m??? Normal >=60 [facility] Comment on above: Order Comment: Yeyo velasquez Type: BLOOD SPECIMEN [facility] Address: [address] [place] [address] Result Comment: Erica mated Glomerular Filtration Rate [...] GFR. Performed By: #### 2 4321-2 #### [facility] CLIA [id number] [address] [place] Glucose [Mass/Vol] 105 mg/dL High 74-99 [facility] Comment on above: Order Comment: Speci men Type: BLOOD SPECIMEN [facility] Address: [address] [place] [address] Result Comment: The [place] [employer] (ADA) provides guidance for cutoff [...] Standards of Medical Care in Diabetes 2016, [place] [employer]. Diabetes Care. 2016.39(Suppl 1). Performed By: #### 2 4321-2 #### [facility] CLIA [id number] [address] [place] Potassium [Moles/Vol] 3.7 mmol/L Normal 3.7-5.1 [facility] Comment on above: Order Comment: Arianei eva Type: BLOOD SPECIMEN [facility] Address: [address] [place] [address] Performed By: #### 2 4321-2 #### [facility] CLIA [id number] [address] [place] Protein [Mass/Vol] 7.0 g/dL Normal 6.3-8.0 [facility] Comment on above: Order Comment: Speci men Type: BLOOD SPECIMEN [facility] Address: [address] [place] [address] Performed By: #### 2 4321-2 #### [facility] CLIA [id number] [address] [place] Sodium [Moles/Vol] 140 mmol/L Normal 136-144 [facility] Comment on above: Order Comment: Speci men Type: BLOOD SPECIMEN [facility] Address: [address] [place] [address] Performed By: #### 2 4321-2 #### [facility] CLIA [id number] [address] [place] Urea nitrogen [Mass/Vol] 13 mg/dL Normal 9-24 [facility] Comment on above: Order Comment: Arianei men Type: BLOOD SPECIMEN [facility] Address: [address] [place] [address] Performed By: #### 2 4321-2 #### [facility] CLIA [id number] [address] [facility] ED NOTEon 08-28-2023 ED NOTE HNO ID: [id number] Author: JASMIN MCCLURE RN Service: ? Author Type: Registered Nurse Type: ED Notes Filed: 08/28/2023 19:10 Note Text: Report given to Fouzia PAL Normal [facility] ED NOTE HNO ID: [id number] Author: JASMIN MCCLURE RN Service: ? Author Type: Registered Nurse Type: ED Notes Filed: 08/28/2023 17:32 Note Text: Dr. Dalton notified pt is requesting other pain medication Normal [facility] ED NOTE HNO ID: [id number] Author: JASMIN MCCLURE RN Service: ? Author Type: Registered Nurse Type: ED Notes Filed: 08/28/2023 16:49 Note Text: Pt had minimal to no stool in toilet, no blood noted. Pt now requesting sprite. Pt educated on NPO status until images result. Normal [facility] ED NOTE HNO ID: [id number] Author: JASMIN MCCLURE RN Service: ? Author Type: Registered Nurse Type: ED Notes Filed: 08/28/2023 16:46 Note Text: Pt ambulatory to the bathroom with Logistics System Engineer, presented with steady gait [facility] ED NOTE HNO ID: [id number] Author: JASMIN MCCLURE RN Service: ? Author Type: Registered Nurse Type: ED Notes Filed: 08/28/2023 16:05 Note Text: X ray at bedside [facility] ED NOTE HNO ID: [id number] Author: JASMIN MCCLURE RN Service: ? Author Type: Registered Nurse Type: ED Notes Filed: 08/28/2023 15:52 Note Text: X ray notified pt is ready for scans. [facility] ED NOTE HNO ID: [id number] Author: JASMIN MCCLURE RN Service: ? Author Type: Registered Nurse Type: ED Notes Filed: 08/28/2023 15:35 Note Text: Pt arrives with broom man, handcuffed. Normal [facility] ED NOTE HNO ID: [id number] Author: BEHZAD ROMEO RN Service: ? Author Type: Registered Nurse Type: ED Notes Filed: 08/28/2023 15:33 Note Text: Bed: 30-BH Expected date: Expected time: Means of arrival: Comments: Normal [facility] ED PROV NOTEon 08-28-2023 ED PROV NOTE HNO ID: [id number] Author: SERGIO FARMER DO Service: Emergency Medicine Author Type: Physician Type: ED Provider Notes Filed: 08/28/2023 19:32 Note Text: Attending Note I personally saw and examined the patient. I reviewed the resident's note. I agree with the resident's assessment and plan unless otherwise noted. I was present for the significant portion of the procedure(s). Brief HPI: Keek Pemberton is a 33 year old male with a PMH as documented below who presents for evaluation of a foreign body ingestion. Patient reported swallowing his razor blade at longterm earlier today. He states he had no [...] and further position details Note created using WorkSimple dictation software and there may be minor grammatical, word sequence or spelling errors. SERGIO FARMER 08/28/231931 [facility] ED PROV NOTE HNO ID: [id number] Author: CURRENT, DO SERGIO Service: Emergency Medicine Author Type: Physician Type: ED Provider Notes Filed: 08/28/2023 22:46 Note Text: ED Provider Note Patient Name: Keke Pemberton : 1990 SERVICE DATE: 08/28/23 History Patient presents with: Foreign Body Ingestion: Pt arrives after swallowing a couple razor blades, pt unsure why he did it [facility] stating he has done things like [...] Neurological: Negative for syncope, weakness and numbness. Psychiatric/Behavioral: Negative for confusion. All other systems reviewed [...] Davonte Rayo RYAN 08/28/232023 CURRENT, SERGIO 08/28/23 2246 Normal [facility] HISTORY PHYSICALon HISTORY PHYSICAL HNO ID: [id number] Author: INO UNDERWOOD MD Service: Critical Care Author Type: Resident Type: H&P Filed: 08/28/2023 20:13 Note Text: Attestation signed by Ino Underwood MD at 08/28/2023 8:13 PM [facility] STAFF PHYSICIAN NOTE OF PERSONAL INVOLVEMENT IN [...] bodies - Tobacco use Patient presented to [facility] from [facility] on 08/28/2023 with complaints of foreign body ingestion. Patient states that he has been [facility] for the last week [facility] and has not had access to psych [...] He states he follows with psych in [place], [place]. Of note, there are no recent [...] Negative for adenopathy. Does not bruise/bleed easily. Psychiatric/Behavioral: Negative for agitation, confusion, decreased concentration, dysphoric [...] Marijuana Comment: Hx of IV No current facility-administered medications on file prior to encounter. Current Outpatient Medications on File Prior to Encounter Medication Sig pantoprazole DR (PROTONIX) 40 mg tablet Take 1 tablet by mouth daily at 6 am. buprenorphine-naloxone (SUBOXONE) 8-2 mg film Dissolve 2 Film [...] appearance. Comments: Patient laying in bed with motorcycle police at bedside. In ankle and wrist-cuffs per [facility] supervisor. HENT: Head: Normocephalic. (more content not included)... Normal [facility] STAPHYLOCOCCUS AUREUS AND MR SA SCREEN, PCR, NASALon 08-28-2023 S. aureus and MRSA panel JEWEL+probe (Nose) Normal Negative [facility] Comment on above: Order Comment: Speci men Type: SWAB [facility] Address: [address] [place] [address] Result Comment: Nega tive for Staphylococcus aureus by PCR. Negative for MRSA by PCR Performed By: #### S APCR #### [facility] CLIA [id number] [address] [place] [address] [place] Upper GI endoscopyon 024 Upper GI endoscopy [facility] Gastrointestinal Endoscopy Patient Name: Keke Pemberton Procedure Date: 08/28/2023 8:53 PM Date of : 1990 Admit Type: Inpatient Room: [place] [address] Gender: Male Note Status: Finalized Attending MD: Mc Portillo MD, [id number] Procedure: Upper GI endoscopy Indications: Foreign body [...] Note Initiated On: 08/28/2023 8:53 PM Normal [facility] XR ABDOMEN 1V SUPINEon 08-27 XR ABDOMEN [...] not imaged and is below the imaging [id number].. No dilated bowel. Osseous structures are intact. IMPRESSION: Previously seen radiopaque foreign body in the stomach is not imaged and is below the imaging [id number]. Repeat imaging to include the upper abdomen is recommended. Miner Pick: HEAVENLY Transcribe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 buprenorphine-naloxone (SUBOXONE) 8-2 mg film, Dissolve 1 Film [...] needed, Disp: , Rfl: , Unknown Current Facility-Administered Medications Medication Dose Route Frequency [...] DAILY (8 PM) oxymetazoline 0.05 % 1 [place] (GENASAL) 1 [place] EACH NOSTRIL BID PRN buPROPion XL 150 [...] and dry. psy (more content not included)... [facility] NURSING PROGon 04-28-2023 NURSING PROG HNO ID: [id number] Author: Merline Salmon, RN Service: Nursing Author Type: Registered Nurse Type: Nursing Progress Note Filed: 04/29/2023 2:03 AM Note Text: Nursing Progress Note Patient Name: Keke Pemberton Patient Location: [facility]-242B/KV-3X-603R-0 1 1900: Assumed care 2108: Patient pleasant but [...] This note was completed by: Merline Salmon [facility] NURSING PROG HNO ID: [id number] Author: Cheryl Mcgraw RN Service: Nursing Author Type: Registered Nurse Type: Nursing Progress Note Filed: 04/28/2023 6:50 PM Note Text: Other: 0936-6258 shift 1530: pt in room awake, denies [...] he will speak to doctor and social media editor tomorrow about discharge. Pt safety maintained . [facility] NURSING PROG HNO ID: [id number] Author: Alea Hong RN Service: Nursing Author Type: Registered Nurse Type: Nursing Progress Note Filed: 04/28/2023 3:05 PM Note Text: Nursing Progress Note Patient Name: Keke Pemberton Patient Location: [facility]B/BE-3G-850D-0 1 Daily Note: Patient observed to be asleep/resting [...] This note was completed by: ROD Garcia, RN-[facility] NURSING PROGon 04-27-2023 NURSING PROG HNO ID: [id number] Author: Merline Salmon RN Service: Nursing Author Type: Registered Nurse Type: Nursing Progress Note Filed: 04/28/2023 6:41 AM Note Text: Nursing Progress Note Patient Name: Keke Pemberton Patient Location: [facility]-242B/XB-6M-639O-0 1 1900: Assumed care 2035: Patient requests bedtime [...] This note was completed by: Merline Salmon [facility] NURSING PROG HNO ID: [id number] Author: Kori Fontanez RN Service: Nursing Author Type: Registered Nurse Type: Nursing Progress Note Filed: 04/27/2023 4:55 PM Note Text: Nursing Progress Note Patient Name: Keke Pemberton Patient Location: [facility]/YP-8X-943O-0 1 Daily Note: 3409-2917 shift 0700 Pt. care resumed.. Pt. was [...] and COWS =10. Pt. was also given [employer] phone number for a complaint he wants [...] This note was completed by: Kori Fontanez [facility] NURSING PROGon 04-26-2023 NURSING PROG HNO ID: [id number] Author: Merline Salmon RN Service: Nursing Author Type: Registered Nurse Type: Nursing Progress Note Filed: 04/27/2023 6:02 AM Note Text: Nursing Progress Note Patient Name: Keke Pemberton Patient Location: [facility]/OC-1M-345F-0 1 1900: Assumed care 2020: Patient is pleasant [...] This note was completed by: Merline Salmon [facility] NURSING PROG HNO ID: [id number] Author: Kori Fontanez, RN Service: Nursing Author Type: Registered Nurse Type: Nursing Progress Note Filed: 04/26/2023 6:54 PM Note Text: Nursing Progress Note Patient Name: Keke Pemberton Patient Location: [facility]242B/VA-8E-356Y-0 1 Daily Note: 5512-3759 shift Pt. care resumed at 0700. Pt. [...] This note was completed by: Kori Fontanez [facility] 25(OH)D3 [facility] 2022 25-hydroxyvitamin D3 [Mass/Vol] 31.0 ng/mL Normal 31.0-80.0 [facility] Comment on above: Order Comment: Speci men Type: BLOOD SPECIMEN [facility] Facility[facility] Address: [address] [place] [address] Performed By: #### 5 195-3, 42137-8, 04422-7, 26180-8 #### [facility] CLIA [id number] [address] [place] [address] [place] ALLIED HEALTHon 04-25-2023 ALLIED HEALTH HNO ID: [id number] Author: Ana Shannon Music Therapist Service: Music Therapy Author Type: Therapist Type: Allied Health Filed: 04/25/2023 10:55 AM Note Text: THERAPEUTIC PROGRAMMING ASSESSMENT SERVICE DATE: 04/25/2023 SERVICE TIME: 10:49 AM RECOMMENDATIONS: Cognitive Communication Skills Community Resources [employer] Expressive Therapy Leisure Education Leisure Skills Relaxation [...] Channel energy/feelings into constructive outlets Explore inner resources/self-awarenes s Express self better (improve communication skills) Find ways to relax Improve coping skills without using drugs or alcohol Improve thinking skills (memory, attention) while doing things Improve use of leisure time Learn to set realistic goals Spend more time with other people Utilize art materials SIGNATURE: Ana Shannon Music Therapist PATIENT NAME: Keke Pemberton DATE: April 25, 2023 TIME: 10:48 AM PAGER/CONTACT #: [facility] BLOOD TB SCREENon 04-25-2023 M. tuberculosis tuberculin stim IFN-g Ql (Bld) Negative [facility] Comment on above: Order Comment: Speci men Type: BLOOD SPECIMEN [facility] Address: [address] [place] [address] Performed By: #### 5 195-3, 33773-2, 90376-2, 82279-6 #### [facility] CLIA [id number] [address] [facility] [id number] [place] [address] [place] MITOGEN MINUS NIL >9.94 Normal >=0.50 [facility] Comment on above: Order Comment: Speci men Type: BLOOD SPECIMEN [facility] Address: [address] [place] [address] Performed By: #### 5 195-3, 64925-6, 29473-4, 71895-9 #### [facility] CLIA [id number] [address] [place] [address] [place] TB GAMMA INTERPRETATION Infection with M. tuberculosis complex is unlikely. If latent tuberculosis infection is highly suspected, a negative result does not rule out the infection. Specimens from immunocompromised patients and those <5 years of age may show false negative results. In case of a contact investigation, please repeat 8-12 weeks after a known exposure. Normal [facility] Comment on above: Order Comment: Yeyo velasquez Type: BLOOD SPECIMEN [facility] Address: [address] [place] [address] Performed By: #### 5 195-3, 64802-9, 91830-4, 85492-6 #### [facility] CLIA [id number] [address] [place] [address] [place] TB NIL 0.06 IU/mL Normal <=8.00 [facility] Comment on above: Order Comment: Speci men Type: BLOOD SPECIMEN [facility] Address: [address] [place] [address] Performed By: #### 5 195-3, 35557-3, 53676-3, 98505-1 #### [facility] CLIA [id number] [address] [place] [address] [place] TB1 AG MINUS NIL 0.16 IU/mL Normal <0.35 [facility] Comment on above: Order Comment: Speci men Type: BLOOD SPECIMEN [facility] Address: [address] [place] [address] Performed By: #### 5 195-3, 85059-3, 82219-5, 39608-6 #### [facility] CLIA [id number] [address] [place] [address] [place] TB2 AG MINUS NIL 0.17 IU/mL Normal <0.35 [facility] Comment on above: Order Comment: Speci men Type: BLOOD SPECIMEN [facility] Address: [address] [place] [address] Performed By: #### 5 195-3, 61432-7, 62853-9, 86373-5 #### [facility] CLIA [id number] [address] [place] [address] [place] Basic metabolic 2000 panelon 04-25-2023 Anion gap [Moles/Vol] 11 mmol/L Normal 9-18 [facility] Comment on above: Order Comment: Speci men Type: BLOOD SPECIMEN [facility] Address: [address] [place] [address] Performed By: #### 5 195-3, 26665-8, 79281-7, 57440-5 #### [facility] CLIA [id number] [address] [place] [address] [place] Calcium [Mass/Vol] 9.3 mg/dL Normal 8.5-10.2 [facility] Comment on above: Order Comment: Speci men Type: BLOOD SPECIMEN [facility] Address: [address] [place] [address] Performed By: #### 5 195-3, 36163-5, 08296-6, 38879-5 #### [facility] CLIA [id number] [address] [place] [address] [place] Chloride [Moles/Vol] 103 mmol/L Normal 97-105 [facility] Comment on above: Order Comment: Speci men Type: BLOOD SPECIMEN [facility] Address: [address] [place] [address] Performed By: #### 5 195-3, 71696-0, 78092-0, 03543-0 #### [facility] CLIA [id number] [address] [place] [address] [place] CO2 [Moles/Vol] 25 mmol/L Normal 22-30 [facility] Comment on above: Order Comment: Yeyo velasquez Type: BLOOD SPECIMEN [facility] Address: [address] [place] [address] Performed By: #### 5 195-3, 78494-5, 90424-2, 96513-7 #### [facility] CLIA [id number] [address] [place] [address] [place] Creatinine [Mass/Vol] 0.72 mg/dL Low 0.73-1.22 [facility] Comment on above: Order Comment: Yeyo velasquez Type: BLOOD SPECIMEN [facility] Address: [address] [place] [address] Performed By: #### 5 195-3, 64000-5, 32008-8, 42790-1 #### [facility] CLIA [id number] [address] [place] [address] [place] Creatinine and Glomerular filtration rate.predicted panel (S/P/Bld) 124 mL/min/1.73m??? Normal >=60 [facility] Comment on above: Order Comment: Yeyo velasquez Type: BLOOD SPECIMEN [facility] Address: [address] [place] [address] Result Comment: Erica mated Glomerular Filtration Rate [...] actual GFR. Performed By: #### 5 195-3, 31007-6, 79198-3, 90025-3 #### [facility] CLIA [id number] [address] [place] [id number] [place] Glucose [Mass/Vol] 107 mg/dL High 74-99 [facility] Comment on above: Order Comment: Yeyo velasquez Type: BLOOD SPECIMEN [facility] Address: [address] [place] [address] Result Comment: The [place] [employer] (ADA) provides guidance for cutoff [...] Standards of Medical Care in Diabetes 2016, [employer] [place] [employer]. Diabetes Care. 2016.39(Suppl 1). Performed By: #### 5 195-3, 55093-5, 25054-8, 95898-4 #### [facility] CLIA [id number] [facility] [place] [address] [place] Potassium [Moles/Vol] 4.2 mmol/L Normal 3.7-5.1 [facility] Comment on above: Order Comment: Yeyo velasquez Type: BLOOD SPECIMEN [facility] Address: [address] [place] [address] Performed By: #### 5 195-3, 11371-6, 77975-0, 66017-7 #### [facility] CLIA [id number] [facility] [place] [address] [place] Sodium [Moles/Vol] 139 mmol/L Normal 136-144 [facility] Comment on above: Order Comment: Yeyo velasquez Type: BLOOD SPECIMEN [facility] Address: [address] [place] [address] Performed By: #### 5 195-3, 78957-1, 27561-2, 96665-2 #### [facility] CLIA [id number] [address] [place] [id number] [place] Urea nitrogen [Mass/Vol] 13 mg/dL Normal 9-24 [facility] Comment on above: Order Comment: Speci men Type: BLOOD SPECIMEN [facility] Address: [address] [place] [id number] Performed By: #### 5 195-3, 44300-7, 22560-6, 96752-3 #### [facility] CLIA [id number] [address] [facility] [id number] [address] [place] CASE MGT INIT ASSESon 2022 CASE MGT INIT ASSES HNO ID: [id number] Author: Boubacar Alba LSW Service: Social Work Author Type: Irrigation Foreman Type: Care Mgt Initial Assessment Filed: 04/25/2023 3:40 PM Note Text: BEHAVIORAL HEALTH SOCIAL WORK/CARE MANAGEMENT ASSESSMENT AND DISCHARGE PLAN SERVICE DATE: 04/25/2023 SERVICE TIME: 10:32 AM Reason for Admission: Per intake note: Keke Pemberton is a 32 year old male brought in [facility] from Home by ambulance for suicidal [...] did just that he woke up at [facility]. Pt reports he was previously at [facility] [...] Important Contacts: No contacts provided Does the patient/account development representative consent to contact with the above at this time? Not Applicable Information obtained from: Chart Patient Referred by: Medical Team Living Arrangements Prior to Admission: Relative's Home Prior to Admission, Patient was Living with: Uncle Marital Status: Single Children (including quality of relationship): 2, ages 8 and 10. Reports good relationships Sexual Orientation: Heterosexual SOCIAL HISTORY Keke Pemberton was born and raised in [place], [place] by his biological parents. His childhood is described as good. He has 3 sisters and patient's father is . He has good relationship with family members. Trauma and Abuse History (emotional, mental, physical, sexual, verbal, neglect,exploitation, other): No, Patient/Watch Guard Gate Denies Education History: Some High School Support [...] Charges: drug related charges and criminal damaging Mosque/Spirituality: Unknown PSYCHIATRIC HISTORY: - Psychiatrist: None Violence [...] Positive for amphetamines and opiates Do special considerations/accommod ations need to be made (i.e. preferred language, literacy, gender identity, physical disability such as deaf or blind, etc)? No, Patient/Watch Guard Gate Denies Are there practices or beliefs that may affect or influence treatment? No, Patient/Watch Guard Gate Denies Patient Strengths/Protective Fa (more content not included)... [facility] CBC W Auto Differential pane l (Bld)on 04-25-2023 Basophils (Bld) [#/Vol] 0.03 10*3/uL Normal <0.11 [facility] Comment on above: Order Comment: Speci men Type: BLOOD SPECIMEN [facility] Address: [address] [place] [address] Performed By: #### 5 -3, 10755-3, 74675-6, 02422-0 #### [facility] CLIA [id number] [address] [place] [address] [place] Basophils/100 WBC (Bld) 0.4 % [facility] Comment on above: Order Comment: Speci men Type: BLOOD SPECIMEN [facility] Address: [address] [place] [address] Performed By: #### 5 -3, 72339-0, 99913-7, 68120-2 #### [facility] CLIA [id number] [address] [place] [address] [place] Differential cell count method Nom (Bld) Auto [facility] Comment on above: Order Comment: Speci men Type: BLOOD SPECIMEN [facility] Address: [address] [place] [address] Performed By: #### 5 195-3, 91554-8, 42624-4, 23013-2 #### [facility] CLIA [id number] [address] [address] [place] Eosinophils (Bld) [#/Vol] 0.18 10*3/uL Normal <0.46 [facility] Comment on above: Order Comment: Speci men Type: BLOOD SPECIMEN [facility] Address: [address] [place] [address] Performed By: #### 5 195-3, 72064-7, 18155-2, 52186-5 #### [facility] CLIA [id number] [address] [place] [address] [place] Eosinophils/100 WBC (Bld) 2.2 % Normal [facility] Comment on above: Order Comment: Speci men Type: BLOOD SPECIMEN [facility] Address: [address] [place] [address] Performed By: #### 5 195-3, 30372-7, 93984-0, 90462-1 #### [facility] CLIA [id number] [address] [place] [address] [place] Erythrocyte distribution width (RBC) [Ratio] 11.6 % Normal 11.5-15.0 [facility] Comment on above: Order Comment: Speci men Type: BLOOD SPECIMEN [facility] Address: [address] [place] [address] Performed By: #### 5 195-3, 77114-5, 48318-9, 18711-5 #### [facility] CLIA [id number] [address] [place] [address] [place] Hematocrit (Bld) [Volume fraction] 44.4 % Normal 39.0-51.0 [facility] Comment on above: Order Comment: Speci men Type: BLOOD SPECIMEN [facility] Address: [address] [place] [address] Performed By: #### 5 195-3, 35371-6, 33731-8, 94416-2 #### [facility] CLIA [id number] [address] [place] [address] [place] Hemoglobin (Bld) [Mass/Vol] 14.5 g/dL Normal 13.0-17.0 [facility] Comment on above: Order Comment: Speci men Type: BLOOD SPECIMEN [facility] Address: [address] [place] [address] Performed By: #### 5 195-3, 98211-3, 01308-0, 42993-3 #### [facility] CLIA [id number] [address] [place] [address] [place] Immature granulocytes (Bld) [#/Vol] 10*3/uL Normal <0.10 [facility] Comment on above: Order Comment: Speci men Type: BLOOD SPECIMEN [facility] Address: [address] [place] [address] Performed By: #### 5 195-3, 70991-1, 65502-7, 40655-0 #### [facility] CLIA [id number] [address] [place] [address] [place] Immature granulocytes/100 WBC (Bld) 0.2 % Normal [facility] Comment on above: Order Comment: Speci men Type: BLOOD SPECIMEN [facility] Address: [address] [place] [address] Performed By: #### 5 195-3, 00022-3, 05920-3, 58002-0 #### [facility] CLIA [id number] [address] [place], [place] [address] [place] Lymphocytes (Bld) [#/Vol] 1.88 10*3/uL Normal 1.00-4.00 [facility] Comment on above: Order Comment: Speci men Type: BLOOD SPECIMEN [facility] Address: [address] [place] [address] Performed By: #### 5 195-3, 83658-6, 88288-6, 45763-0 #### [facility] CLIA [id number] [address] [place] [address] [place] Lymphocytes/100 WBC (Bld) 22.7 % Normal [facility] Comment on above: Order Comment: Speci men Type: BLOOD SPECIMEN [facility] Address: [address] [place] [address] Performed By: #### 5 195-3, 29515-0, 29063-2, 08891-7 #### [facility] CLIA [id number] [address] [place] [address] [place] MCH (RBC) [Entitic mass] 30.3 pg Normal 26.0-34.0 [facility] Comment on above: Order Comment: Speci men Type: BLOOD SPECIMEN [facility] Address: [address] [place] [address] Performed By: #### 5 195-3, 38953-6, 83273-8, 43513-6 #### [facility] CLIA [id number] [address] [place] [address] [place] MCHC (RBC) [Mass/Vol] 32.7 g/dL Normal 30.5-36.0 [facility] Comment on above: Order Comment: Speci men Type: BLOOD SPECIMEN [facility] Address: [address] [place] [address] Performed By: #### 5 195-3, 53075-7, 01990-6, 73095-5 #### [facility] CLIA [id number] [address] [place] [address] [place] MCV (RBC) [Entitic vol] 92.7 fL Normal 80.0-100.0 [facility] Comment on above: Order Comment: Speci men Type: BLOOD SPECIMEN [facility] Address: [address] [place] [address] Performed By: #### 5 195-3, 43281-9, 80495-9, 04719-8 #### [facility] CLIA [id number] [address] [address] [place] Monocytes (Bld) [#/Vol] 0.81 10*3/uL Normal <0.87 [facility] Comment on above: Order Comment: Speci men Type: BLOOD SPECIMEN [facility] Address: [address] [place] [address] Performed By: #### 5 195-3, 26139-8, 62440-7, 64850-2 #### [facility] CLIA [id number] [address] [place] [address] [place] Monocytes/100 WBC (Bld) 9.8 % Normal [facility] Comment on above: Order Comment: Speci men Type: BLOOD SPECIMEN [facility] Address: [address] [place] [address] Performed By: #### 5 195-3, 46915-5, 51522-1, 58819-6 #### [facility] CLIA [id number] [address] [place] [address] [place] Neutrophils (Bld) [#/Vol] 5.36 10*3/uL Normal 1.45-7.50 [facility] Comment on above: Order Comment: Speci men Type: BLOOD SPECIMEN [facility] Address: [address] [place] [address] Performed By: #### 5 195-3, 33733-2, 24505-9, 58513-1 #### [facility] CLIA [id number] [address] [place] [address] [place] Neutrophils/100 WBC (Bld) 64.7 % Normal [facility] Comment on above: Order Comment: Speci men Type: BLOOD SPECIMEN [facility] Address: [address] [place] [address] Performed By: #### 5 195-3, 44296-8, 56993-4, 17226-9 #### [facility] CLIA [id number] [address] [place] [address] [place] Nucleated RBC (Bld) [#/Vol] 10*3/uL Normal <0.01 [facility] Comment on above: Order Comment: Speci men Type: BLOOD SPECIMEN [facility] Address: [address] [place] [address] Performed By: #### 5 195-3, 33496-8, 45130-5, 25919-4 #### [facility] CLIA [id number] [address] [place] [address] [place] Nucleated RBC/100 WBC (Bld) [Ratio] 0.0 /100 WBC Normal [facility] Comment on above: Order Comment: Speci men Type: BLOOD SPECIMEN [facility] Address: [address] [place] [address] Performed By: #### 5 195-3, 71380-0, 21263-4, 45696-0 #### [facility] CLIA [id number] [address] [place] [address] [place] Platelet mean volume (Bld) [Entitic vol] 10.2 fL Normal 9.0-12.7 [facility] Comment on above: Order Comment: Speci men Type: BLOOD SPECIMEN [facility] Address: [address] [place] [address] Performed By: #### 5 195-3, 02804-1, 02955-2, 86856-9 #### [facility] CLIA [id number] [address] [place] [address] [place] Platelets (Bld) [#/Vol] 219 10*3/uL Normal 150-400 [facility] Comment on above: Order Comment: Speci men Type: BLOOD SPECIMEN [facility] Address: [address] [place] [address] Performed By: #### 5 195-3, 42927-4, 52725-7, 76680-6 #### [facility] CLIA [id number] [address] [place] [address] [place] RBC (Bld) [#/Vol] 4.79 10*6/uL Normal 4.20-6.00 [facility] Comment on above: Order Comment: Speci men Type: BLOOD SPECIMEN [facility] Address: [address] [place] [address] Performed By: #### 5 195-3, 91049-0, 56857-4, 31964-8 #### [facility] CLIA [id number] [address] [place] [address] [place] WBC (Bld) [#/Vol] 8.28 10*3/uL Normal 3.70-11.00 [facility] Comment on above: Order Comment: Speci men Type: BLOOD SPECIMEN [facility] Address: [address] [place] [address] Performed By: #### 5 195-3, 43972-7, 79496-5, 13545-1 #### [facility] CLIA [id number] [address] [place] [address] [place] CONSULTon 04-25-2023 CONSULT HNO ID: [id number] Author: Talita Deleon MD Service: Process Group Author Type: Physician Type: Consults Filed: 04/26/2023 9:17 AM Note Text: [facility] - Consultation PEMBERTONKEKE WISEMAN Karen : 1990 AGE: 32 SEX: M CSN: [id number] [facility]: [facility] LOCATION: [facility] ATTENDING PHYSICIAN: SHELBY FELIZ DATE OF SERVICE: 04/25/2023 TIME OF SERVICE: 09:45 AM CONSULTING PHYSICIAN: Talita Deleon M.D. CHIEF COMPLAINTS: Depression. HISTORY OF PRESENT ILLNESS: The patient is admitted to the psych floor for depression and decompensation of his bipolar disorder. ALLERGIES: NKDA. MEDICATIONS: [place]urd[place] carbonate 300 daily at bedtime, Suboxone 8-2 [...] management is per Psychiatry. Talita Deleon M.D. [facility] KD:[id number] /[id number] [facility] ED NOTEon 04-25-2023 ED NOTE HNO ID: [id number] Author: Sunshine Vargas RN Service: Nursing Author Type: Registered Nurse Type: ED Notes Filed: 04/25/2023 1:17 AM Note Text: Report called to Yarsani RN at this time. Patient report given to [facility] at bedside. Patients belongings from locker 9 sent with patient transport on transfer. [facility] ED PROV NOTEon 04-25-2023 ED PROV NOTE HNO ID: [id number] Author: Sunshine Duncan MD Service: Emergency Medicine [...] voluntary admission. Will be voluntarily admitted to [facility]. ED Course as of 04/24/232209 Others' Documentation Saige Apr 24, 20231937 EKG is normal sinus rhythm rate of 98. MA interval 148. QRS duration 88. QT 413. [...] PAGER/CONTACT #: SUNSHINE DUNCAN 04/25/[address] [facility] GGT SerPl-cCncon 04-25-2023 Gamma glutamyl transferase [Catalytic activity/Vol] 20 U/L Normal 10-70 [facility] Comment on above: Order Comment: Yeyo velasquez Type: BLOOD SPECIMEN [facility] Address: [address] [place] [address] Performed By: #### 5 195-3, 83960-9, 79483-7, 09791-3 #### [facility] CLIA [id number] [address] [place] [address] [place] HBV core Ab Ser Qlon 023 HBV core Ab Ql (S) Positive Abnormal Negative [facility] Comment on above: Order Comment: Yeyo velasquez Type: BLOOD SPECIMEN [facility] Address: [address] [place] [address] Result Comment: The result suggests either current or past infection with Hepatitis B virus. Non-specific reactivity may at times be seen with this test due to some underlying phenomena. Please correlate with HBsAg result and medical history. Performed By: #### 5 195-3, 47974-5, 96075-5, 13489-6 #### [facility] CLIA [id number] [address] [place] [address] [place] HBV surface Ab Ql (S)on 03-29 HBV surface Ab Qn (S) 260.79 mIU/mL [facility] Comment on above: Order Comment: Speci men Type: BLOOD SPECIMEN [facility] Address: [address] [place] [address] Result Comment: <8 m IU/mL: No serological evidence of immunity to Hepatitis B Virus. >/= 8 to <12 mIU/mL: No serological evidence of immunity to Hepatitis B Virus. >/= 12 mIU/mL: Consistent with serological evidence of immunity to Hepatitis B Virus. Performed By: #### 5 195-3, 04706-7, 30444-3, 14778-4 #### [facility] CLIA [id number] [address] [place] [address] [place] HBV surface Ab Ser Qlon 03-29 HBV surface Ab Ql (S) Positive Normal [facility] Comment on above: Order Comment: Speci men Type: BLOOD SPECIMEN [facility] Address: [address] [place] [address] Result Comment: Cons istent with serological evidence of immunity to Hepatitis B Virus. Performed By: #### 5 195-3, 44940-1, 08034-4, 46316-1 #### [facility] CLIA [id number] [address] [place] [address] [place] HBV surface Ag Ser Qlon 03-29 HBV surface Ag Ql (S) Negative Normal Negative [facility] Comment on above: Order Comment: Speci men Type: BLOOD SPECIMEN [facility] Address: [address] [place] [address] Performed By: #### 5 195-3, 47185-1, 03332-2, 35242-5 #### [facility] CLIA [id number] [address] [place] [address] [place] HCV Ab Ser Qlon 04-25-2023 HCV Ab Ql (S) Positive Abnormal Negative [facility] Comment on above: Order Comment: Speci men Type: BLOOD SPECIMEN [facility] Address: [address] [place] [address] Performed By: #### 5 195-3, 63392-8, 98012-1, 47918-2 #### [facility] CLIA [id number] [address] [place] [address] [place] HCV RNA SerPl JEWEL+probe-aCnc on 04-25-2023 HCV RNA JEWEL+probe Qn Abnormal HCV RNA not detected by PCR. [facility] Comment on above: Order Comment: Speci men Type: BLOOD SPECIMEN [facility] Address: [address] [place] [address] Result Comment: HCV RNA detected by PCR. 6860 3.84 Performed By: #### 5 195-3, 40372-8, 38137-5, 92166-3 #### [facility] CLIA [id number] [address] [place] [address] [place] HISTORY PHYSICALon HISTORY PHYSICAL HNO ID: [id number] Author: Shelby Feliz MD Service: Psychiatry Author [...] of abscess of penis who presented to [facility] ED by EMS on 04/24/2023 for SI. Recently admitted at [facility] for intentional ingestion of battery and paperclips. In the ED, UDS: Alcohol, amphetamines, opiates. BAL 11. K+ 3.4, glu 131. CBC and CMP otherwise wnl.; QTc 413 ([place]ett). Medications given in ED: Ativan 1 mg. Vitals stable prior to transfer to behavioral health unit. PDMP reviewed on April 25, 2023. Patient has been prescribed buprenorphine-naloxone 8-2 mg film on 04/11/2023. Per [facility] on 04/24/23: Nature of the crisis: suicidal ideations Presenting Problem: Keke Pemberton is a 32 year old male brought [facility] by ambulance for suicidal [...] did just that he woke up at [facility]. [facility] [...] is a 32 year old male from [place], [place]. HISTORY OF PRESENT ILLNESS : Mr. Pemberton is a 32 year old male with a reported psychiatric history of ADHD who presented from longterm after reportedly swallowing batteries and a razor blade. Patient denied self-harm intent. Per chart review, patient swallows objects to get out of longterm. This is his 6th hospital visit in [...] prescribed those medications prior to being in longterm. However he is unable to state the [...] lithium, and e (more content not included)... [facility] HIV 1+2 Ab IA Qlon 3 HIV 1 and 2 Ab IA.rapid Nom (S/P/Bld) [facility] Comment on above: Order Comment: Speci men Type: BLOOD SPECIMEN [facility] Address: [address] [place] [address] Result Comment: Test not indicated. Performed By: #### 5 195-3, 89643-5, 07766-9, 21194-1 #### [facility] CLIA [id number] [address] [place] [address] [place] HIV 1+2 Ab+HIV1 p24 Ag IA Ql Non-Reactive Normal Nonreactive [facility] Comment on above: Order Comment: Speci men Type: BLOOD SPECIMEN [facility] Address: [address] [place] [address] Performed By: #### 5 195-3, 21113-1, 73557-5, 62185-4 #### [facility] CLIA [id number] [address] [place] [address] [place] HIV immunoassay testing algorithm interpretation (S/P/Bld) [Interp] [facility] Comment on above: Order Comment: Speci men Type: BLOOD SPECIMEN [facility] Address: [address] [place] [address] Result Comment: No e vidence of HIV-1 or HIV-2 infection. Should recent infection be suspected, repeat testing may be considered 2-3 weeks after this draw. [place] Rev. Code 3701.243(E): This information has been [...] or diagnoses. Performed By: #### 5 195-3, 84476-9, 93007-5, 80711-1 #### [facility] CLIA [id number] [address] [address] [place] HbA1c (Bld)on 04-25-2023 Average glucose Estimated from glycated hemoglobin (Bld) [Mass/Vol] 100 mg/dL [facility] Comment on above: Order Comment: Speci men Type: BLOOD SPECIMEN [facility] Address: [address] [place] [address] Result Comment: eAG: (Estimated average glucose) is a calculated value from HgbA1c and is account development representative of the average blood glucose level in the last 2-3 month period. Performed By: #### 5 195-3, 07337-0, 89239-5, 03826-1 #### [facility] CLIA [id number] [address] [place] [address] [place] HbA1c (Bld) [Mass fraction] 5.1 % Normal 4.3-5.6 [facility] Comment on above: Order Comment: Yeyo velasquez Type: BLOOD SPECIMEN [facility] Address: [address] [place] [address] Result Comment: Amer ican Diabetes Association guidelines indicate that patients with HgbA1c in the range 5.7-6.4% are at increased risk for development of diabetes, and intervention by lifestyle modification may be beneficial. HgbA1c greater or equal to 6.5% is considered diagnostic of diabetes. Performed By: #### 5 195-3, 82595-6, 92812-7, 57222-0 #### [facility] CLIA [id number] [address] [place] [address] [place] Lipid 1996 panelon 3 Cholesterol [Mass/Vol] 131 mg/dL Normal <200 [facility] Comment on above: Order Comment: Yeyo velasquez Type: BLOOD SPECIMEN [facility] Address: [address] [place] [address] Result Comment: <200 mg/dL, Desirable 200-239 mg/dL, Borderline high >239 mg/dL, High Performed By: #### 5 195-3, 04634-7, 34669-6, 59590-9 #### [facility] CLIA [id number] [address] [place] [address] [place] Cholesterol in HDL [Mass/Vol] 59 mg/dL Normal >39 [facility] Comment on above: Order Comment: Yeyo velasquez Type: BLOOD SPECIMEN [facility] Address: [address] [place] [address] Result Comment: 40-5 9 mg/dL, Acceptable >59 mg/dL, High: Negative risk factor for coronary heart disease <40 mg/dL, Low: Positive risk factor for coronary heart disease Performed By: #### 5 195-3, 81720-0, 02983-3, 60846-5 #### [facility] CLIA [id number] [address] [place] [address] [place] Cholesterol in LDL [Mass/Vol] 67 mg/dL Normal <100 [facility] Comment on above: Order Comment: Yeyo velasquez Type: BLOOD SPECIMEN [facility] Address: [address] [place] [address] Result Comment: <100 mg/dL, Optimal 100-129 mg/dL, Near optimal/above optimal 130-159 mg/dL, Borderline high 160-189 mg/dL, High >189 mg/dL, Very high Secondary prevention optimal LDL Cholesterol levels are recommended to be < 70 mg/dL Performed By: #### 5 195-3, 55833-4, 75967-5, 17833-6 #### [facility] CLIA [id number] [address] [place] [address] [place] Cholesterol in LDL/Cholesterol in HDL [Mass ratio] 1.14 {ratio} Normal <2.54 [facility] Comment on above: Order Comment: Yeyo velasquez Type: BLOOD SPECIMEN [facility] Address: [address] [place] [address] Result Comment: Refe rence: 1. National Cholesterol Education Program ATP III Guideline At-A-Glance Quick Desk Reference: National Heart, Lung, and Blood Alexander. National Institutes of Health. 2001: NIH Publication No. 01-3305. 2. An International Atherosclerosis Society position paper: global recommendations for the management of dyslipidemia: executive summary, Atherosclerosis. 2014: 232(2):410-413. Performed By: #### 5 195-3, 99713-1, 95912-9, 66318-8 #### [facility] CLIA [id number] [address] [place] [address] [place] Cholesterol in VLDL [Mass/Vol] 5 mg/dL Normal <30 [facility] Comment on above: Order Comment: Speci men Type: BLOOD SPECIMEN [facility] Address: [address] [place] [address] Performed By: #### 5 195-3, 22938-6, 31505-7, 73862-6 #### [facility] CLIA [id number] [address] [address] [place] Cholesterol non HDL [Mass/Vol] 72 mg/dL Normal <130 [facility] Comment on above: Order Comment: Speci men Type: BLOOD SPECIMEN [facility] Address: [address] [place] [address] Result Comment: <130 mg/dL, Optimal 130-159 mg/dL, Near optimal/above optimal 160-189 mg/dL, Borderline high 190-219 mg/dL, High >219 mg/dL, Very high Secondary prevention optimal non HDL Cholesterol levels are recommended to be <100 mg/dL Performed By: #### 5 195-3, 55183-0, 10589-7, 13809-8 #### [facility] CLIA [id number] [address] [place] [address] [place] Cholesterol.total/Chol esterol in HDL [Mass ratio] 2.22 {ratio} Normal <5.10 [facility] Comment on above: Order Comment: Speci men Type: BLOOD SPECIMEN [facility] Address: [address] [place] [address] Performed By: #### 5 195-3, 44191-9, 07692-4, 59683-9 #### [facility] CLIA [id number] [address] [address] [place] FASTING TIME Unknown Normal [facility] Comment on above: Order Comment: Speci men Type: BLOOD SPECIMEN [facility] Address: [address] [place] [address] Performed By: #### 5 195-3, 80355-1, 44694-7, 28953-2 #### [facility] CLIA [id number] [address] [place] [address] [place] Triglyceride [Mass/Vol] 27 mg/dL Normal <150 [facility] Comment on above: Order Comment: Speci men Type: BLOOD SPECIMEN [facility] Address: [address] [facility] [place] [address] Result Comment: <150 mg/dL, Normal 150-199 mg/dL, Borderline high 200-499 mg/dL, High >499 mg/dL, Very high Performed By: #### 5 195-3, 55004-8, 61733-0, 67142-7 #### [facility] CLIA [id number] [address] [place] NURSING PROGon 04-25-2023 NURSING PROG HNO ID: [id number] Author: Vivek Zazueta RN Service: Nursing Author Type: Registered Nurse Type: Nursing Progress Note Filed: 04/26/2023 6:07 AM Note Text: Nursing Progress Note Patient Name: Keke Pemberton Patient Location: [facility]-[id number] 1 Daily Note: 1930 Assumed care of patient. [...] 2044: COWS 3. HR 87. Reports anxiety 09/04. Pt refusing PRNs meds at this time. 2145 COWS 3. HR 85. Pt c/o difficulty sleeping and anxiety. Requesting and given PRN Trazodone and Atarax. No further acute distress noted. 0000 Pt observed sleep. Respiration unlabored and equal. 0600: Pt slept throughout the night. Pt slept 8 hrs. No visible distress noted. This note was completed by: [facility] NURSING PROG HNO ID: [id number] Author: Katelyn Eller RN Service: Nursing Author Type: Registered Nurse Type: Nursing Progress Note Filed: 04/25/2023 7:18 PM Note Text: Nursing Progress Note Patient Name: Keke Pemberton Patient Location[facility]242B/[id number]-[id number] 1 Daily Note: 8833-2351 0730: Assumed care of pt. Pt is [...] This note was completed by: Katelyn Eller [facility] NURSING PROG HNO ID: [id number] Author: Moon Mauro RN Service: ? Author [...] did just that he woke up at [facility]. A year ago patient was admitted to [facility] with a little cut on his wrist and swallowed a wrapped razor blade.Patient lives with his uncle and feels safe. States there are no guns in the house. Patient has a new tattoo on his left shoulder. Patients goal is to get on track and get resources. Patient went to sleep at 0235. [facility] Reagin and Treponema pallidu m IgG and IgM [Interp]on 04-25-2023 T. pallidum IgG+IgM IA Ql (S) Non-Reactive Normal Nonreactive [facility] Comment on above: Order Comment: Yeyo velasquez Type: BLOOD SPECIMEN [facility] Address: [address] [place] [address] Performed By: #### 7 3752-8 #### [facility] CLIA [id number] [address] [place] [address] [place] Reagin+T pallidum IgG+IgM Se rPl-Impon 04-25-2023 Reagin and Treponema pallidum IgG and IgM [Interp] Cannot exclude recent Treponemal infection if specimen collected within 7-10 days after appearance of suspect lesions or 2-3 weeks after an exposure. Clinical correlation is required. [facility] Comment on above: Order Comment: Yeyo velasquez Type: BLOOD SPECIMEN [facility] Address: [address] [place] [address] Performed By: #### 7 3752-8 #### [facility] CLIA [id number] [address] [place] [address] [place] TSH SerPl-aCncon 04-25-2023 TSH Qn 0.614 m[IU]/L Normal 0.270-4.200 [facility] Comment on above: Order Comment: Speci men Type: BLOOD SPECIMEN [facility] Address: [address] [place] [address] Performed By: #### 5 195-3, 94699-2, 12327-5, 04325-1 #### [facility] CLIA [id number] [address] [place] Vit [facility] Cobalamin (Vitamin B12) [Mass/Vol] 429 pg/mL Normal 232-1245 [facility] Comment on above: Order Comment: Speci men Type: BLOOD SPECIMEN [facility] Address: [address] [place] [address] Performed By: #### 5 195-3, 77027-0, 99554-6, 90699-5 #### [facility] CLIA [id number] [address] [place] CBC panel Auto (Bld)on 04-24 Erythrocyte distribution width (RBC) [Ratio] 11.6 % Normal 11.5-15.[address] [facility] Comment on above: Order Comment: Speci men Type: BLOOD SPECIMENOrdering Facility: [facility] Address: [address] [place] [address] Performed By: #### 5 8410-2 ####[facility] [id number] [address] [place] Hematocrit (Bld) [Volume fraction] 41.2 % Normal 39.0-51.[address] [facility] Comment on above: Order Comment: Speci men Type: BLOOD SPECIMENOrdering Facility: [facility] Address: [address] [place] [address] Performed By: #### 5 8410-2 ####[facility] [id number] [address] [place] Hemoglobin (Bld) [Mass/Vol] 14.0 g/dL Normal 13.0-17.[address] [facility] Comment on above: Order Comment: Speci men Type: BLOOD SPECIMENOrdering Facility: [facility] Address: [address] [place] [address] Performed By: #### 5 8410-2 ####[facility] [id number] [address] MCH (RBC) [Entitic mass] 30.9 pg Normal 26.0-34.[address] [facility] Comment on above: Order Comment: Speci men Type: BLOOD SPECIMENOrdering Facility: [facility] Address: [address] [place] [address] Performed By: #### 5 8410-2 ####[facility] [id number] [address] MCHC (RBC) [Mass/Vol] 34.0 g/dL Normal 30.5-36.0 [facility] Comment on above: Order Comment: Speci men Type: BLOOD SPECIMENOrdering Facility: [facility] Address: [address] [place] [address] Performed By: #### 5 8410-2 ####[facility] [id number] [address] MCV (RBC) [Entitic vol] 90.9 fL Normal 80.0-100.[address] [facility] Comment on above: Order Comment: Speci men Type: BLOOD SPECIMENOrdering Facility: [facility] Address: [address] [place] [address] Performed By: #### 5 8410-2 ####[facility] [id number] [address] [place] Nucleated RBC (Bld) [#/Vol] 10*3/uL Normal <0.[address] [facility] Comment on above: Order Comment: Speci men Type: BLOOD SPECIMENOrdering Facility: [facility] Address: [address] [place] [address] Performed By: #### 5 8410-2 ####[facility] [id number] [address] Platelet mean volume (Bld) [Entitic vol] 9.9 fL Normal 9.0-12.[address] [facility] Comment on above: Order Comment: Speci men Type: BLOOD SPECIMENOrdering Facility: [facility] Address: [address] [facility] [place] [place] [address] Performed By: #### 5 8410-2 ####[facility] [id number] [address] Platelets (Bld) [#/Vol] 227 10*3/uL Normal 150-[address] [facility] Comment on above: Order Comment: Speci men Type: BLOOD SPECIMENOrdering Facility: [facility] Address: [address] [place] [address] Performed By: #### 5 8410-2 ####[facility] [id number] [address] RBC (Bld) [#/Vol] 4.53 10*6/uL Normal 4.20-6.00 [facility] Comment on above: Order Comment: Speci men Type: BLOOD SPECIMENOrdering Facility: [facility] Address: [address] [place] [address] Performed By: #### 5 8410-2 ####[facility] [id number] [address] WBC (Bld) [#/Vol] 9.21 10*3/uL Normal 3.70-11.00 [facility] Comment on above: Order Comment: Speci men Type: BLOOD SPECIMENOrdering Facility: [facility] Address: [place] [address] Performed By: #### 5 8410-2 ####[facility] [id number] [address] Comprehensive metabolic 2000 panelon 04-24-2023 Albumin [Mass/Vol] 4.4 g/dL Normal 3.9-4.[address] [facility] Comment on above: Order Comment: Speci men Type: BLOOD SPECIMENOrdering Facility: [facility] Address: [address] [place] [address] Performed By: #### 2 4323-8 ####[facility] [id number] [address] ALP [Catalytic activity/Vol] 108 U/L Normal 38-[address] [facility] Comment on above: Order Comment: Speci men Type: BLOOD SPECIMENOrdering Facility: [facility] Address: [place] [address] Performed By: #### 2 4323-8 ####MARK LABORATORYCLIA [id number] [place] [address] [place] ALT [Catalytic activity/Vol] 41 U/L Normal 10-[address] [facility] Comment on above: Order Comment: Speci men Type: BLOOD SPECIMENOrdering Facility: [facility] Address: [address] [place] [address] Performed By: #### 2 4323-8 ####MARK LABORATORYCLIA [id number] [place] [address] [place] Anion gap [Moles/Vol] 8 mmol/L Low 9-18 [facility] Comment on above: Order Comment: Speci men Type: BLOOD SPECIMENOrdering Facility: [facility] Address: [address] [place] [address] Performed By: #### 2 4323-8 ####MARK LABORATORYCLIA [id number] [place] [address] [place] AST [Catalytic activity/Vol] 37 U/L Normal 14-[address] [facility] Comment on above: Order Comment: Speci men Type: BLOOD SPECIMENOrdering Facility: [facility] Address: [address] [facility] [place] [place] [address] Performed By: #### 2 4323-8 ####MARK LABORATORYCLIA [id number] [place] [address] [place] Bilirubin [Mass/Vol] 0.4 mg/dL Normal 0.2-1.3 [facility] Comment on above: Order Comment: Speci men Type: BLOOD SPECIMENOrdering Facility: [facility] Address: [address] [place] [address] Performed By: #### 2 4323-8 ####MARK LABORATORYCLIA [id number] [place] [address] [place] Calcium [Mass/Vol] 9.4 mg/dL Normal 8.5-10.[address] [facility] Comment on above: Order Comment: Speci men Type: BLOOD SPECIMENOrdering Facility: [facility] Address: [address] [place] [address] Performed By: #### 2 4323-8 ####MARK LABORATORYCLIA [id number] [place] [id number] [place] Chloride [Moles/Vol] 100 mmol/L Normal 97-105 [facility] Comment on above: Order Comment: Speci men Type: BLOOD SPECIMENOrdering Facility: [facility] Address: [address] [place] [address] Performed By: #### 2 4323-8 ####MARK LABORATORYCLIA [id number] [place] [id number] [place] [facility] [place] CO2 [Moles/Vol] 29 mmol/L Normal 22-[address] [facility] Comment on above: Order Comment: Speci men Type: BLOOD SPECIMENOrdering Facility: [facility] Address: [address] [place] [address] Performed By: #### 2 4323-8 ####MARK LABORATORYCLIA [id number] [address] [place] Creatinine [Mass/Vol] 0.82 mg/dL Normal 0.73-1.22 [facility] Comment on above: Order Comment: Speci men Type: BLOOD SPECIMENOrdering Facility: [facility] Address: [address] [place] [address] Performed By: #### 2 4323-8 ####MARK LABORATORYCLIA [id number] [address] Creatinine and Glomerular filtration rate.predicted panel (S/P/Bld) 120 mL/min/1.73m??? Normal >=[address] [facility] Comment on above: Order Comment: Speci men Type: BLOOD SPECIMENOrdering Facility: [facility] Address: [address] [place] [address] Result Comment: Erica mated Glomerular Filtration Rate [...] Performed By: #### 2 4323-8 ####MARK LABORATORYCLIA [id number] [place] [address] [place] Glucose [Mass/Vol] 131 mg/dL High 74-[address] [facility] Comment on above: Order Comment: Yeyo velasquez Type: BLOOD SPECIMENOrdering Facility: [facility] Address: [address] [place] [address] Result Comment: The [place] [employer] (ADA) provides guidance for cutoff [...] Standards of Medical Care in Diabetes 2016, [employer] [place] [employer]. Diabetes Care. 2016.39(Suppl 1). Performed By: #### 2 4323-8 ####BALLWIN LABORATORYCLIA [id number] [place] [address] [place] Potassium [Moles/Vol] 3.4 mmol/L Low 3.7-5.1 [facility] Comment on above: Order Comment: Yeyo velasquez Type: BLOOD SPECIMENOrdering Facility: [facility] Address: [address] [place] [address] Performed By: #### 2 4323-8 ####BALLWIN LABORATORYCLIA [id number] [place] [address] [place] Protein [Mass/Vol] 7.2 g/dL Normal 6.3-8.[address] [facility] Comment on above: Order Comment: Yeyo velasquez Type: BLOOD SPECIMENOrdering Facility: [facility] Address: [address] [place] [address] Performed By: #### 2 4323-8 ####BALLWIN LABORATORYCLIA [id number] [address] Sodium [Moles/Vol] 137 mmol/L Normal 136-[address] [facility] Comment on above: Order Comment: Speci men Type: BLOOD SPECIMENOrdering Facility: [facility] Address: [address] [place] [id number] Performed By: #### 2 4323-8 ####MARK LABORATORYCLIA [id number] [address] Urea nitrogen [Mass/Vol] 13 mg/dL Normal 9-[address] [facility] Comment on above: Order Comment: Speci men Type: BLOOD SPECIMENOrdering Facility: [facility] Address: [address] [place] [address] Performed By: #### 2 4323-8 ####MARK LABORATORYCLIA [id number] [address] ECG COMPLETEon 04-24-2023 ECG COMPLETE Ventricular Rate : 9 8 BPM Atrial Rate : 98 BPM P-R Interval : 148 ms QRS Duration : 88 ms Q-T Interval : 324 ms QTC Calculation(Bazett) : 413 ms Calculated P Jefferson : 72 degrees Calculated R Jefferson : 81 degrees Calculated T Jefferson : 62 degrees SINUS RHYTHM WITH MARKED SINUS ARRHYTHMIA OTHERWISE NORMAL ECG no STEMI Confirmed by KATHY ROWAN ([id number]), news editor SUN FERRARI ([id number]) on 04/25/2023 9:00:31 AM NAME : KEKE PEMBERTON PID : [id number] : 1990 Gender : Male Race : ORD : [id number] Procedure Date : Apr 24 2023 19:32:05 Edit Date : Apr 25 2023 09:00:33 Diagnosis: SINUS RHYTHM WITH MARKED SINUS ARRHYTHMIA OTHERWISE NORMAL ECG no STEMI Confirmed by KATHY ROWAN ([id number]), news editor SUN FERRARI ([id number]) on 04/25/2023 9:00:31 AM Test Reason : Arrhythmia Location : 1 : ER ED Overread By : KATHY ROWAN Edited By : SUN FERRARI Referred By : , Acquired by : Isma ESTRADA [facility] ED NOTEon 04-24-2023 ED NOTE HNO ID: [id number] Author: Rubia Cox, Medic Service: ? Author Type: Tagman and Saw Runner Type: ED Notes Filed: 04/24/2023 9:42 PM Note Text: Pt done on phone with central intake at this time. [facility] ED NOTE HNO ID: [id number] Author: Sunshine Vargas RN Service: Nursing Author Type: Registered Nurse Type: ED Notes Filed: 04/24/2023 9:06 PM Note Text: This RN updated CI on patient case at this time. Patient to speak with CI when phone becomes available. [facility] ED NOTE HNO ID: [id number] Author: Sunshine Vargas, DEMARCO Service: Nursing Author Type: Registered Nurse Type: ED Notes Filed: 04/24/2023 8:55 PM Note Text: [facility] ED NOTE HNO ID: [id number] Author: Sunshine Vargas, DEMARCO Service: Nursing Author Type: Registered Nurse [...] continue to monitor and complete medical evaluation. [facility] ED NOTE HNO ID: [id number] Author: Castillo Parikh RN Service: Nursing Author Type: Registered Nurse Type: ED Notes Filed: 04/24/2023 6:21 PM Note Text: Pt presents to ER from home for CC SI. Pt states that he recently experienced a in the family and has since been more depressed and scared because of potential thoughts of self harm. Does not currently endorse a plan. [facility] ED PROV NOTEon 04-24-2023 ED PROV NOTE HNO ID: [id number] Author: Kathy Rowan MD Service: Emergency Medicine [...] to treat him. 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 [...] (e.g. pH). This assay does not include adulteration/specimen validity testing. In clinical settings, confirmatory testing is at the practitioner's discretion [1]. If clinically indicated, confirmation by high specificity, quantitative methodology, which includes adulteration/specimen validity testing, may be requested on the same specimen through Client Services ([phone]) if contacted within 48 hours of initial [...] is normal sinus rhythm rate of 98. MA interval 148. QRS duration 88. QT 413. Axes 81 degrees. Patient has sinus arrhythmia. There is no injury ischemia or in (more content not included)... Normal [facility] Ethanol [Mass/Vol] 11 mg/dL High <[address] [facility] Comment on above: Order Comment: Speci men Type: BLOOD SPECIMENOrdering Facility: [facility] Address: [address] [place], [place] [address] Performed By: #### 5 643-2 ####JAS LABORATORYCLIA [id number] [place] [address] [place] FENTANYL AND METABOLITE CONF MARIBELL BLANCHARDon 04-24-2023 fentaNYL Confirm (U) [Mass/Vol] 8 ng/mL High <6 [facility] Comment on above: Order Comment: Speci men Type: BLOOD SPECIMEN [facility] Address: [address] [place] [address] Result Comment: Pres ence of fentanyl indicates use of a fentanyl containing drug. Fentanyl is metabolized to norfentanyl. Performed By: #### 5 195-3, 63971-8, 25472-8, 75816-7 #### [facility] CLIA [id number] [address] [place] [address] [place] Norfentanyl Confirm (U) [Mass/Vol] 316 ng/mL High <6 [facility] Comment on above: Order Comment: Speci men Type: BLOOD SPECIMEN [facility] Address: [address] [place] [address] Result Comment: Norf entanyl is a metabolite of fentanyl, and its presence indicates use of a fentanyl containing drug. Performed By: #### 5 195-3, 25389-9, 47439-8, 24327-4 #### [facility] CLIA [id number] [address] [place] [address] [place] NOTE (UFENT) Normal [facility] Comment on above: Order Comment: Speci [facility] Type: BLOOD SPECIMEN [facility] Address: [address] [place] [address] Result Comment: This test is for medical use only. This test was developed and its performance characteristics determined by [facility] ([facility]). It has not been cleared or approved by the FDA. [facility] is regulated under CLIA as qualified to perform high-complexity testing. This test is used for clinical purposes. It should not be regarded as investigational or for research. Performed By: #### 5 195-3, 57202-2, 09050-2, 44417-8 #### [facility] CLIA [id number] [address] [place] [address] [place] FENTANYL SCREEN W/REFLEX, QU ALITATIVE, URINEon 04-24-2023 fentaNYL Screen Ql (U) Sent for confirmation Abnormal [facility] Comment on above: Order Comment: Speci men Type: BLOOD SPECIMEN [facility] Address: [address] [place] [address] Result Comment: Cuto ff threshold at 5 ng/mL. Performed By: #### 5 195-3, 03001-0, 90618-0, 64661-8 #### [facility] CLIA [id number] [address] [place] [address] [place] SARS-CoV-2 RNA Resp Ql JEWEL+p robeon 04-24-2023 SARS-CoV-2 (COVID-19) RNA JEWEL+probe Ql (Resp) COVID 19 RESULT: Not detected The method used is RT-PCR or an equivalent NAAT method. Reference Range(the expected result in uninfected individuals): Not detected Normal [facility] Comment on above: Performed By: #### 9 4500-6 ####[facility]ITAL[facility] [id number] [place] [address] [place] SPECIMEN VALIDITY, URINEon 1 06-25-2022 CHROMATE,URINE <10 Normal <50 [facility] Comment on above: Order Comment: Speci men Type: BLOOD SPECIMEN [facility] Address: [address] [place] [address] Performed By: #### 5 195-3, 09019-6, 27999-8, 06334-1 #### [facility] CLIA [id number] [address] [place] [address] [place] CREATININE,URINE 155.4 mg/dL Normal 20.0-300.0 [facility] Comment on above: Order Comment: Speci men Type: BLOOD SPECIMEN [facility] Address: [address] [place] [address] Performed By: #### 5 195-3, 61414-1, 22657-0, 11206-5 #### [facility] CLIA [id number] [address] [address] [place] NITRITES,URINE <50 Normal <500 [facility] Comment on above: Order Comment: Speci men Type: BLOOD SPECIMEN [facility] Address: [address] [place] [address] Performed By: #### 5 195-3, 11675-2, 58312-0, 93697-7 #### [facility] CLIA [id number] [address] [place] [address] [place] OXIDANTS,URINE <38 Normal <200 [facility] Comment on above: Order Comment: Speci men Type: BLOOD SPECIMEN [facility] Address: [address] [place] [address] Performed By: #### 5 -3, 77972-9, 45023-1, 71813-6 #### [facility] CLIA [id number] [address] [place] [id number] [place] pH (U) 8.8 [pH] High 4.5-8.0 [facility] Comment on above: Order Comment: Speci men Type: BLOOD SPECIMEN [facility] Address: [address] [place] [address] Performed By: #### 5 -3, 93180-9, 24657-9, 59256-5 #### [facility] CLIA [id number] [address] [address] [place] SPEC GRAVITY,UR 1.019 Normal 1.003-1.035 [facility] Comment on above: Order Comment: Speci men Type: BLOOD SPECIMEN [facility] Address: [address] [place] [address] Performed By: #### 5 195-3, 82909-6, 32999-8, 70338-0 #### [facility] CLIA [id number] [address] [place] [address] [place] SPECIMEN VALIDITY QUALITY Specimen quality results within acceptable limits [facility] Comment on above: Order Comment: Speci men Type: BLOOD SPECIMEN [facility] Address: [address] [place] [address] Performed By: #### 5 195-3, 39576-5, 47207-0, 98584-0 #### [facility] CLIA [id number] [address] [place] [address] [place] TOX SCREEN ROUT URon 12-28-2 023 Amphetamines Confirm (U) [Mass/Vol] Positive Abnormal Negative [facility] Comment on above: Order Comment: Speci men Type: URINE SPECIMENOrdering Facility: [facility] Address: [address] [place] [address] Result Comment: Cuto ff threshold at 1000 ng/mL. Performed By: #### U TOX2 ####MARK LABORATORYCLIA [id number] [place] [address] [place] BARBITURATES, URINE Negative Normal Negative [facility] Comment on above: Order Comment: Speci men Type: URINE SPECIMENOrdering Facility: [facility] Address: [address] [place] [address] Result Comment: Cuto ff threshold at 200 ng/mL. Performed By: #### U TOX2 ####MARK LABORATORYCLIA [id number] [place] [address] [place] BENZODIAZEPINES, UR Negative Normal Negative [facility] Comment on above: Order Comment: Speci men Type: URINE SPECIMENOrdering Facility: [facility] Address: [address] [place] [address] Result Comment: Cuto ff threshold at 200 ng/mL. Performed By: #### U TOX2 ####MARK LABORATORYCLIA [id number] [place] [address] [place] Cannabinoids Screen Ql (U) Negative Normal Negative [facility] Comment on above: Order Comment: Speci men Type: URINE SPECIMENOrdering Facility: [facility] Address: [address] [place] [address] Result Comment: Cuto ff threshold at 50 ng/mL. Performed By: #### U TOX2 ####MARK LABORATORYCLIA [id number] [address] [place] Cocaine Ql (U) Negative Normal Negative [facility] Comment on above: Order Comment: Speci men Type: URINE SPECIMENOrdering Facility: [facility] Address: [address] [place] [address] Result Comment: Cuto ff threshold at 300 ng/mL. Performed By: #### U TOX2 ####MARK LABORATORYCLIA [id number] [place] [address] [place] Ethanol (U) [Mass/Vol] <11 Normal <11 [facility] Comment on above: Order Comment: Speci men Type: URINE SPECIMENOrdering Facility: [facility] Address: [address] [place] [address] Performed By: #### U TOX2 ####MARK LABORATORYCLIA [id number] [place] [address] [place] Opiates Screen Ql (U) Positive Abnormal Negative [facility] Comment on above: Order Comment: Speci men Type: URINE SPECIMENOrdering Facility: [facility] Address: [address] [place] [address] Result Comment: Cuto ff threshold at 300 ng/mL. Performed By: #### U TOX2 ####MARK LABORATORYCLIA [id number] [address] [place] oxyCODONE cutoff Screen (U) [Mass/Vol] Negative Normal Negative [facility] Comment on above: Order Comment: Speci men Type: URINE SPECIMENOrdering Facility: [facility] Address: [address] [place] [address] Result Comment: Cuto ff threshold at 100 ng/mL. Performed By: #### U TOX2 ####MARK LABORATORYCLIA [id number] [address] [place] Phencyclidine Ql (U) Negative Normal Negative [facility] Comment on above: Order Comment: Speci men Type: URINE SPECIMENOrdering Facility: [facility] Address: [address] [place] [address] Result Comment: Cuto ff threshold at 25 ng/mL. Performed By: #### U TOX2 ####MARK LABORATORYCLIA [id number] [address] Urinalysis complete panel (U )on 04-24-2023 Bilirubin Ql (U) Negative Normal Negative [facility] Comment on above: Order Comment: Speci men Type: URINE SPECIMENOrdering Facility: [facility] Address: [address] [place] [address] Performed By: #### 2 4356-8 ####MARK LABORATORYCLIA [id number] [address] [place] Clarity (Unsp spec) Slightly Cloudy Abnormal Clear [facility] Comment on above: Order Comment: Speci men Type: URINE SPECIMENOrdering Facility: [facility] Address: [address] [place] [address] Performed By: #### 2 4356-8 ####MARK LABORATORYCLIA [id number] [address] Color (U) Yellow Normal Yellow [facility] Comment on above: Order Comment: Speci men Type: URINE SPECIMENOrdering Facility: [facility] Address: [address] [place] [address] Performed By: #### 2 4356-8 ####MARK LABORATORYCLIA [id number] [address] Epithelial cells LM.HPF (Urine sed) [#/Area] Few Normal [facility] Comment on above: Order Comment: Speci men Type: URINE SPECIMENOrdering Facility: [facility] Address: [address] [place] [address] Performed By: #### 2 4356-8 ####MARK LABORATORYCLIA [id number] [address] [place] Glucose Test strip (U) [Mass/Vol] Negative Normal Negative [facility] Comment on above: Order Comment: Speci men Type: URINE SPECIMENOrdering Facility: [facility] Address: [address] [place] [address] Performed By: #### 2 4356-8 ####MARK LABORATORYCLIA [id number] [place] [address] [place] Hemoglobin Ql (U) Negative Normal Negative [facility] Comment on above: Order Comment: Speci men Type: URINE SPECIMENOrdering Facility: [facility] Address: [address] [place] [address] Performed By: #### 2 4356-8 ####MARK LABORATORYCLIA [id number] [place] [address] [place] Ketones Ql (U) Negative Normal Negative [facility] Comment on above: Order Comment: Speci men Type: URINE SPECIMENOrdering Facility: [facility] Address: [address] [place] [address] Performed By: #### 2 4356-8 ####MARK LABORATORYCLIA [id number] [place] [address] [place] Leukocyte esterase Test strip Ql (U) Negative Normal Negative [facility] Comment on above: Order Comment: Speci men Type: URINE SPECIMENOrdering Facility: [facility] Address: [address] [place] [address] Performed By: #### 2 4356-8 ####MARK LABORATORYCLIA [id number] [place] [address] [place] Nitrite Ql (U) Negative Normal Negative [facility] Comment on above: Order Comment: Speci men Type: URINE SPECIMENOrdering Facility: [facility] Address: [address] [place] [address] Performed By: #### 2 4356-8 ####MARK LABORATORYCLIA [id number] [place] [address] [place] pH (U) 8.5 [pH] High 5.0-8.[address] [facility] Comment on above: Order Comment: Speci men Type: URINE SPECIMENOrdering Facility: [facility] Address: [address] [place] [address] Performed By: #### 2 4356-8 ####MARK LABORATORYCLIA [id number] [place] [address] [place] Protein (U) [Mass/Vol] 2+ Abnormal Negative [facility] Comment on above: Order Comment: Speci men Type: URINE SPECIMENOrdering Facility: [facility] Address: [address] [place] [address] Performed By: #### 2 4356-8 ####MARK LABORATORYCLIA [id number] [address] [place] RBC LM.HPF (Urine sed) [#/Area] 0-3 /HPF Normal 0-3 /HPF [facility] Comment on above: Order Comment: Speci men Type: URINE SPECIMENOrdering Facility: [facility] Address: [address] [place] [address] Performed By: #### 2 4356-8 ####MARK LABORATORYCLIA [id number] [address] Specific gravity (U) [Rel density] 1.020 Normal 1.005-1.[address] [facility] Comment on above: Order Comment: Speci men Type: URINE SPECIMENOrdering Facility: [facility] Address: [address] [place] [address] Performed By: #### 2 4356-8 ####MARK LABORATORYCLIA [id number] [address] Urobilinogen Ql (U) 0.2 EU/dL Normal 0.2-1.0 EU/dL [facility] Comment on above: Order Comment: Speci men Type: URINE SPECIMENOrdering Facility: [facility] Address: [address] [place] [address] Performed By: #### 2 4356-8 ####MARK LABORATORYCLIA [id number] [address] STATES [facility] WBC LM.HPF (Urine sed) [#/Area] 0-5 /HPF Normal 0-5 /HPF [facility] Comment on above: Order Comment: Speci men Type: URINE SPECIMENOrdering Facility: [facility] Address: [address] [place] [address] Performed By: #### 2 4356-8 ####MARK LABORATORYCLIA [id number] [address] [place] CBC panel Auto (Bld)on 04-11 Erythrocyte distribution width (RBC) [Ratio] 11.9 % Normal 11.5-15.[address] [facility] Comment on above: Order Comment: Speci men Type: BLOOD SPECIMENOrdering Facility: [facility] Address: [address] [place] [address] Performed By: #### 5 8410-2 ####MARK LABORATORYCLIA [id number] [address] Hematocrit (Bld) [Volume fraction] 40.6 % Normal 39.0-51.[address] [facility] Comment on above: Order Comment: Speci men Type: BLOOD SPECIMENOrdering Facility: [facility] Address: [address] [place] [address] Performed By: #### 5 8410-2 ####MARK LABORATORYCLIA [id number] [address] [place] Hemoglobin (Bld) [Mass/Vol] 13.2 g/dL Normal 13.0-17.[address] [facility] Comment on above: Order Comment: Speci men Type: BLOOD SPECIMENOrdering Facility: [facility] Address: [address] [place] [address] Performed By: #### 5 8410-2 ####MARK LABORATORYCLIA [id number] [address] [place] MCH (RBC) [Entitic mass] 29.9 pg Normal 26.0-34.[address] [facility] Comment on above: Order Comment: Speci men Type: BLOOD SPECIMENOrdering Facility: [facility] Address: [address] [place] [address] Performed By: #### 5 8410-2 ####MARK LABORATORYCLIA [id number] [address] [place] MCHC (RBC) [Mass/Vol] 32.5 g/dL Normal 30.5-36.0 [facility] Comment on above: Order Comment: Speci men Type: BLOOD SPECIMENOrdering Facility: [facility] Address: [address] [place] [address] Performed By: #### 5 8410-2 ####MARK LABORATORYCLIA [id number] [address] [place] MCV (RBC) [Entitic vol] 92.1 fL Normal 80.0-100.[address] [facility] Comment on above: Order Comment: Speci men Type: BLOOD SPECIMENOrdering Facility: [facility] Address: [address] [place] [address] Performed By: #### 5 8410-2 ####MARK LABORATORYCLIA [id number] [place] [address] [place] Nucleated RBC (Bld) [#/Vol] 10*3/uL Normal <0.[address] [facility] Comment on above: Order Comment: Speci men Type: BLOOD SPECIMENOrdering Facility: [facility] Address: [address] [place] [address] Performed By: #### 5 8410-2 ####MARK LABORATORYCLIA [id number] [address] [place] Platelet mean volume (Bld) [Entitic vol] 9.2 fL Normal 9.0-12.[address] [facility] Comment on above: Order Comment: Speci men Type: BLOOD SPECIMENOrdering Facility: [facility] Address: [address] [place] [address] Performed By: #### 5 8410-2 ####MARK LABORATORYCLIA [id number] [place] [address] [place] Platelets (Bld) [#/Vol] 308 10*3/uL Normal 150-[address] [facility] Comment on above: Order Comment: Speci men Type: BLOOD SPECIMENOrdering Facility: [facility] Address: [address] [place] [address] Performed By: #### 5 8410-2 ####MARK LABORATORYCLIA [id number] [place] [address] [place] RBC (Bld) [#/Vol] 4.41 10*6/uL Normal 4.20-6.00 [facility] Comment on above: Order Comment: Speci men Type: BLOOD SPECIMENOrdering Facility: [facility] Address: [address] [place] [address] Performed By: #### 5 8410-2 ####MARK LABORATORYCLIA [id number] [place] [address] [place] WBC (Bld) [#/Vol] 9.44 10*3/uL Normal 3.70-11.00 [facility] Comment on above: Order Comment: Speci men Type: BLOOD SPECIMENOrdering Facility: [facility] Address: [address] [place] [address] Performed By: #### 5 8410-2 ####MARK LABORATORYCLIA [id number] [address] [place] Comprehensive metabolic 2000 panelon 04-11-2023 Albumin [Mass/Vol] 4.0 g/dL Normal 3.9-4.[address] [facility] Comment on above: Order Comment: Speci men Type: BLOOD SPECIMENOrdering Facility: [facility] Address: [address] [place] [address] Performed By: #### 2 4323-8 ####MARK LABORATORYCLIA [id number] [address] ALP [Catalytic activity/Vol] 82 U/L Normal 38-[address] [facility] Comment on above: Order Comment: Speci men Type: BLOOD SPECIMENOrdering Facility: [facility] Address: [address] [place] [address] Performed By: #### 2 4323-8 ####MARK LABORATORYCLIA [id number] [address] ALT [Catalytic activity/Vol] 23 U/L Normal 10-[address] [facility] Comment on above: Order Comment: Speci men Type: BLOOD SPECIMENOrdering Facility: [facility] Address: [address] [place] [address] Performed By: #### 2 4323-8 ####MARK LABORATORYCLIA [id number] [address] Anion gap [Moles/Vol] 7 mmol/L Low 9-18 [facility] Comment on above: Order Comment: Speci men Type: BLOOD SPECIMENOrdering Facility: [facility] Address: [address] [place] [address] Performed By: #### 2 4323-8 ####MARK LABORATORYCLIA [id number] [place] [address] [place] AST [Catalytic activity/Vol] 18 U/L Normal 14-[address] [facility] Comment on above: Order Comment: Speci men Type: BLOOD SPECIMENOrdering Facility: [facility] Address: [address] [place] [address] Performed By: #### 2 4323-8 ####MARK LABORATORYCLIA [id number] [place] [address] [place] Bilirubin [Mass/Vol] 0.3 mg/dL Normal 0.2-1.3 [facility] Comment on above: Order Comment: Speci men Type: BLOOD SPECIMENOrdering Facility: [facility] Address: [address] [place] [address] Performed By: #### 2 4323-8 ####MARK LABORATORYCLIA [id number] [place] [address] [place] Calcium [Mass/Vol] 9.0 mg/dL Normal 8.5-10.[address] [facility] Comment on above: Order Comment: Speci men Type: BLOOD SPECIMENOrdering Facility: [facility] Address: [address] [place] [address] Performed By: #### 2 4323-8 ####MARK LABORATORYCLIA [id number] [place] [address] [place] Chloride [Moles/Vol] 104 mmol/L Normal 97-105 [facility] Comment on above: Order Comment: Speci men Type: BLOOD SPECIMENOrdering Facility: [facility] Address: [address] [place] [address] Performed By: #### 2 4323-8 ####MARK LABORATORYCLIA [id number] [place] [address] [place] CO2 [Moles/Vol] 28 mmol/L Normal 22-[address] [facility] Comment on above: Order Comment: Speci men Type: BLOOD SPECIMENOrdering Facility: [facility] Address: [address] [place] [address] Performed By: #### 2 4323-8 ####MARK LABORATORYCLIA [id number] [address] [place] Creatinine [Mass/Vol] 0.77 mg/dL Normal 0.73-1.22 [facility] Comment on above: Order Comment: Yeyo velasquez Type: BLOOD SPECIMENOrdering Facility: [facility] Address: [address] [place] [address] Performed By: #### 2 4323-8 ####MARK LABORATORYCLIA [id number] [place] [id number] [facility] Creatinine and Glomerular filtration rate.predicted panel (S/P/Bld) 122 mL/min/1.73m??? Normal >=[address] [facility] Comment on above: Order Comment: Yeyo velasquez Type: BLOOD SPECIMENOrdering Facility: [facility] Address: [address] [place] [address] Result Comment: Erica mated Glomerular Filtration Rate [...] Performed By: #### 2 4323-8 ####MARK LABORATORYCLIA [id number] [address] STATES OF [facility] Glucose [Mass/Vol] 114 mg/dL High 74-[address] [facility] Comment on above: Order Comment: Yeyo velasquez Type: BLOOD SPECIMENOrdering Facility: [facility] Address: [address] [place] [address] Result Comment: The [place] [employer] (ADA) provides guidance for cutoff [...] Standards of Medical Care in Diabetes 2016, [employer] [place] [employer]. Diabetes Care. 2016.39(Suppl 1). Performed By: #### 2 4323-8 ####MARK LABORATORYCLIA [id number] [address] [place] Potassium [Moles/Vol] 3.7 mmol/L Normal 3.7-5.1 [facility] Comment on above: Order Comment: Speci men Type: BLOOD SPECIMENOrdering Facility: [facility] Address: [address] [place] [address] Performed By: #### 2 4323-8 ####MARK LABORATORYCLIA [id number] [address] [place] Protein [Mass/Vol] 6.6 g/dL Normal 6.3-8.[address] [facility] Comment on above: Order Comment: Yeyo velasquez Type: BLOOD SPECIMENOrdering Facility: [facility] Address: [address] [place] [address] Performed By: #### 2 4323-8 ####MARK LABORATORYCLIA [id number] [address] STATES [facility] Sodium [Moles/Vol] 139 mmol/L Normal 136-[address] [facility] Comment on above: Order Comment: Arianei eva Type: BLOOD SPECIMENOrdering Facility: [facility] Address: [address] [place] [address] Performed By: #### 2 4323-8 ####MARK LABORATORYCLIA [id number] [address] [place] Urea nitrogen [Mass/Vol] 15 mg/dL Normal 9-[address] [facility] Comment on above: Order Comment: Arianei men Type: BLOOD SPECIMENOrdering Facility: [facility] Address: [address] [place] [address] Performed By: #### 2 4323-8 ####MARK LABORATORYCLIA [id number] [address] [place] ECG COMPLETEon 04-11-2023 ECG COMPLETE Ventricular Rate : 9 3 BPM Atrial Rate : 93 BPM P-R Interval : 148 ms QRS Duration : 90 ms Q-T Interval : 348 ms QTC Calculation(Bazett) : 432 ms Calculated P Jefferson : 81 degrees Calculated R Jefferson : 88 degrees Calculated T Jefferson : 70 degrees SINUS RHYTHM WITH MARKED SINUS ARRHYTHMIA OTHERWISE NORMAL ECG no stemi Confirmed by KATHY ROWAN ([id number]), news editor NADINE WILLIS ([id number]) on 04/11/2023 4:51:49 PM NAME : KEKE PEMBERTON PID : [id number] : 1990 Gender : Male Race : ORD : [id number] Procedure Date : Apr 11 2023 11:41:35 Edit Date : Apr 11 2023 16:51:50 Diagnosis: SINUS RHYTHM WITH MARKED SINUS ARRHYTHMIA OTHERWISE NORMAL ECG no stemi Confirmed by KATHY ROWAN ([id number]), news editor NADINE WILLIS ([id number]) on 04/11/2023 4:51:49 PM Test Reason : Arrhythmia Location : 1 : ER ED Overread By : KATHY ROWAN Edited By : NADINE WILLIS Referred By : , Acquired by : DORA, [facility] ED NOTEon 04-11-2023 ED NOTE HNO ID: [id number] Author: Liv Mathews RN Service: ? Author Type: Registered Nurse Type: ED Notes Filed: 04/11/2023 2:41 PM Note Text: Discharged pt. with diagnosis of substance use disorder. Discharge and follow up instructions given. Pt. verbalized understanding of discharge instructions. Pt. has no further questions and/or concerns at this time. Heplock d/c'd. Pt. ambulates with steady gait. Rx e-scripted. [facility] ED NOTE HNO ID: [id number] Author: Sabrina Alvarado RN Service: ? Author Type: Registered Nurse Type: ED Notes Filed: 04/11/2023 10:45 AM Note Text: Pt to ED reports he is having nausea, vomiting and body cramping- detoxing from Fentanyl. Last use was two days ago. 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 Exam conducted with a wheelchair rental clerk present. Constitutional: Appearance: Normal appearance. HENT: Head: [...] (e.g. pH). This assay does not include adulteration/specimen validity testing. In clinical settings, confirmatory testing is at the practitioner's discretion [1]. If clinically indicated, confirmation by high specificity, quantitative methodology, which includes adulteration/specimen validity testing, may be requested on the same specimen through Client Services ([phone]) if contacted within 48 hours of initial [...] sinus rhythm with a rate of 93. MA interval 148. QRS 90. QT 432. Jefferson 80 degrees. There is no injury schema or infarct pattern. 1353 Today's EKG was compared to 12/09/2022. The patient was in sinus tachycardia with a rate of 101. There is no significant change. Clinical Impressions as of 04/11/23 1423 Substance use disorder Narcotic a (more content not included)... Normal [facility] Ethanol [facility] 023 Ethanol [Mass/Vol] mg/dL Normal <[address] [facility] Comment on above: Order Comment: Speci men Type: BLOOD SPECIMENOrdering Facility: [facility] Address: [address] [place] [address] Performed By: #### 5 643-2 ####MARK LABORATORYCLIA [id number] [address] [place] SARS-CoV-2 RNA Resp Ql JEWEL+p robeon 04-11-2023 SARS-CoV-2 (COVID-19) RNA JEWEL+probe Ql (Resp) COVID 19 RESULT: Not detected The method used is RT-PCR or an equivalent NAAT method. Reference Range(the expected result in uninfected individuals): Not detected Normal [facility] Comment on above: Performed By: #### 9 4500-6 ####MARK LABORATORYCLIA [id number] [address] TOX SCREEN ROUT URon 023 Amphetamines Confirm (U) [Mass/Vol] Positive Abnormal Negative [facility] Comment on above: Order Comment: Speci men Type: URINE SPECIMENOrdering Facility: [facility] Address: [address] [place] [address] Result Comment: Cuto ff threshold at 1000 ng/mL. Performed By: #### U TOX2 ####MARK LABORATORYCLIA [id number] [address] [place] BARBITURATES, URINE Negative Normal Negative [facility] Comment on above: Order Comment: Speci men Type: URINE SPECIMENOrdering Facility: [facility] Address: [address] [place] [address] Result Comment: Cuto ff threshold at 200 ng/mL. Performed By: #### U TOX2 ####MARK LABORATORYCLIA [id number] [place] [address] [place] BENZODIAZEPINES, UR Negative Normal Negative [facility] Comment on above: Order Comment: Speci men Type: URINE SPECIMENOrdering Facility: [facility] Address: [address] [place] [address] Result Comment: Cuto ff threshold at 200 ng/mL. Performed By: #### U TOX2 ####MARK LABORATORYCLIA [id number] [address] [place] Cannabinoids Screen Ql (U) Negative Normal Negative [facility] Comment on above: Order Comment: Speci men Type: URINE SPECIMENOrdering Facility: [facility] Address: [address] [place] [address] Result Comment: Cuto ff threshold at 50 ng/mL. Performed By: #### U TOX2 ####MARK LABORATORYCLIA [id number] [place] [address] [place] Cocaine Ql (U) Positive Abnormal Negative [facility] Comment on above: Order Comment: Speci men Type: URINE SPECIMENOrdering Facility: [facility] Address: [address] [place] [address] Result Comment: Cuto ff threshold at 300 ng/mL. Performed By: #### U TOX2 ####MARK LABORATORYCLIA [id number] [place] [address] [place] Ethanol (U) [Mass/Vol] <11 Normal <11 [facility] Comment on above: Order Comment: Speci men Type: URINE SPECIMENOrdering Facility: [facility] Address: [address] [place] [address] Performed By: #### U TOX2 ####MARK LABORATORYCLIA [id number] [address] [place] Opiates Screen Ql (U) Negative Normal Negative [facility] Comment on above: Order Comment: Speci men Type: URINE SPECIMENOrdering Facility: [facility] Address: [address] [place] [address] Result Comment: Cuto ff threshold at 300 ng/mL. Performed By: #### U TOX2 ####MARK LABORATORYCLIA [id number] [place] [address] [place] oxyCODONE cutoff Screen (U) [Mass/Vol] Negative Normal Negative [facility] Comment on above: Order Comment: Speci men Type: URINE SPECIMENOrdering Facility: [facility] Address: [address] [place] [address] Result Comment: Cuto ff threshold at 100 ng/mL. Performed By: #### U TOX2 ####MARK LABORATORYCLIA [id number] [address] [place] Phencyclidine Ql (U) Negative Normal Negative [facility] Comment on above: Order Comment: Speci men Type: URINE SPECIMENOrdering Facility: [facility] Address: [facility] [place] [address] Result Comment: Cuto ff threshold at 25 ng/mL. Performed By: #### U TOX2 ####MARK LABORATORYCLIA [id number] [address] [place] ALLIED HEALTHon 04-10-2023 ALLIED HEALTH HNO ID: [id number] Author: Dang Moscoso V, RT(R) Service: Radiology Author Type: Technologist Type: [...] RT Lizette(R) April 10, 2023 2:48 PM [facility] ED NOTEon 04-10-2023 ED NOTE HNO ID: [id number] Author: Jailyn Reid RN Service: ? Author Type: Registered Nurse Type: ED Notes Filed: 04/10/2023 3:23 PM Note Text: pt not see in ER pt was walking back and forth to bathroom pt not in room or bathroom right now. [facility] ED NOTE HNO ID: [id number] Author: Liv Mathews RN Service: ? Author Type: Registered Nurse Type: ED Notes Filed: 04/10/2023 2:01 PM Note Text: Pt to ED, states he accidentally swallowed a AAA battery while trying to change remote batteries. Reports some mild abd pain. [facility] ED PROV NOTEon 04-10-2023 ED PROV NOTE HNO ID: [id number] Author: Junior Parikh MD Service: ? Author [...] rash. Neurological: Negative for weakness and numbness. Psychiatric/Behavioral: Negative for self-injury. Physical Exam Vitals [04/10/23 [...] with the National battery ingestion hotline (case #[id number]). They recommended that the patient receive Carafate [...] 1V FRONT (more content not included)... Normal [facility] XR ABDOMEN 1V SUPINEon 04-10 XR ABDOMEN [...] body noted projecting over the epigastric region Miner Pick: HEAVENLY Transcribe Date/Time: Apr 10 2023 2:55P Dictated by : ISAK THOMPSON DO This examination was interpreted and the report reviewed and electronically signed by: ISAK THOMPSON DO on Apr 10 2023 2:58PM EST [id number] Normal [facility] XR CHEST 1V FRONTAL PORTon 1 06-11-2022 [...] acute radiographic abnormality. No radiopaque foreign bodies. Miner Pick: [employer] Transcribe Date/Time: Apr 10 2023 2:54P Dictated by : SORIN CORONA MD This examination was interpreted and the report reviewed and electronically signed by: SORIN CORONA MD on Apr 10 2023 2:55PM EST [id number] [facility] 01-06-2023 ALLIED HEALTH HNO ID: [id number] Author: Garland David RT(R) Service: Radiology Author [...] RT Jasper(R) January 06, 2023 1:45 AM [facility] HNO ID: [id number] Author: Nathan Appiah MD Service: Hospital Medicine [...] Problems as of 01/06/2023 Noted - Resolved [facility] Bipolar affective disorder, currently depressed, moderate (HCC) 01/05/2023 - Present Unknown Foreign body in stomach 12/25/2022 - Present Unknown * (Principal) Swallowed foreign body, sequela 01/03/2023 - Present Yes Resolved Hospital Problems as of 01/06/2023 None Transitions of Care Critical Issues: none LABS AND PROCEDURES PENDING AT DISCHARGE: No pending results. FOLLOW-UP APPOINTMENTS ALREADY SCHEDULED WITH A [facility] PROVIDER: No future appointments. ALLERGIES No Known [...] using the (more content not included)... Normal [facility] CONSULT PROGon 01-06-2023 CONSULT PROG HNO ID: [id number] Author: Mirna Paul APRN.BRUSH HOLDER INSPECTOR Service: General Surgery Author Type: Nurse Practitioner Type: Consult Progress Note Filed: 01/06/2023 9:29 AM Note Text: Summary: EGS Sign OFF Emergency General Surgery Progress Note SERVICE DATE: January 06, 2023 Emergency General Surgery Service Pager: For questions or concerns Mon-Fri 6a-5p please page [phone]. After 5pm and on Weekends and Holidays, please page [phone] if in ICU or [phone] if on RNF. SUBJECTIVE: HPI: 32 year old male w/ a history of ADHD, tobacco use, who presented to to ED for foreign object ingestion. Patient is known to the medicine service for prior admission for swallowing objects when incarcerated to get out of longterm. Presented after ingesting batteries and a supposed [...] kg/m? O2 Therapy: Room Air IANDO: Date 01/05/23699 - 01/06/23 0659 01/06/23699 - 01/07/23 0659 Shift 3632-6140 5905-9630 8610-4810 24 Hour Total 9893-5701 2741-9205 7729-5640 24 Hour Total INTAKE PO 360 240 600 480 480 PO 360 240 600 480 480 Shift Total 360 240 600 480 480 OUTPUT Urine Urine Not Saved. 3 x 1 x 4 x # of BMs Number of BMs 1 x 1 x Shift Total Weight (kg) 61.8 61.8 61.8 61.8 61.8 61.8 61.8 61.8 MEDICATIONS Current Facility-Administered Medications Medication Dose Route Frequency pantoprazole DR [...] 1 g ORAL AC and HS aluminum-magnesium hydroxide-simethicone 200-200-20 mg/5 mL 30 mL [...] TID PRN sodium chloride 0.65 % 2 [place] 2 [place] EACH NOSTRIL PRN prochlorperazine 10 mg injection [...] ingestion of FB: battery, possible razor Hospital Course/Operations/Proce dures: 01/04/2023 Procedure(s): EGD WITH REMOVAL FOREIGN BODY Plan: S/p EGD per GI on 01/04 with removal of FB - Regular diet - Monitor BMs - hat in toilet - Daily KUB recommended - KUB early am w/ noted b (more content not included)... Normal [facility] XR ABDOMEN 1V SUPINEon 01-06 XR ABDOMEN 1V SUPINE * * *Final Report* * * DATE OF EXAM: Jan 06 2023 1:44AM AKX [id number] - XR ABDOMEN 1V SUPINE [...] pelvis, possibly within small bowel distal colon. Miner Pick: HEAVENLY Transcribe Date/Time: Jan 07 2023 7:08A Dictated by : ANGEL MOLINA MD This examination was interpreted and the report reviewed and electronically signed by: ANGEL MOLINA MD on Jan 07 2023 7:11AM EST [id number] Normal [facility] CBC W Auto Differential pane l (Bld)on 01-05-2023 Basophils (Bld) [#/Vol] 0.04 10*3/uL Normal <0.11 [facility] Comment on above: Order Comment: Speci men Type: BLOOD SPECIMEN [facility] Address: [address] [place] [address] Performed By: #### 4 024-6, 5643-2, 3297 #### [facility] CLIA [id number] [address] Basophils/100 WBC (Bld) 0.3 % Normal [facility] Comment on above: Order Comment: Speci men Type: BLOOD SPECIMEN [facility] Address: [address] [place] [address] Performed By: #### 4 024-6, 5643-2, 4947 #### [facility] [place] CLIA [id number] [address] Differential cell count method Nom (Bld) Auto Normal [facility] Comment on above: Order Comment: Speci men Type: BLOOD SPECIMEN [facility] Address: [address] [place] [address] Performed By: #### 4 024-6, 5643-2, 3297 #### [facility] CLIA [id number] [address] [place] Eosinophils (Bld) [#/Vol] 0.07 10*3/uL Normal <0.46 [facility] Comment on above: Order Comment: Speci men Type: BLOOD SPECIMEN [facility] Address: [address] [place] [address] Performed By: #### 4 024-6, 5643-2, 7 #### [facility] CLIA [id number] [address] [place] Eosinophils/100 WBC (Bld) 0.5 % Normal [facility] Comment on above: Order Comment: Speci men Type: BLOOD SPECIMEN [facility] Address: [address] [place] [address] Performed By: #### 4 024-6, 5643-2, 7 #### [facility] CLIA [id number] [address] [place] Erythrocyte distribution width (RBC) [Ratio] 14.4 % Normal 11.5-15.0 [facility] Comment on above: Order Comment: Speci men Type: BLOOD SPECIMEN [facility] Address: [address] [place] [address] Performed By: #### 4 024-6, 5643-2, 7 #### [facility] CLIA [id number] [address] [place] Hematocrit (Bld) [Volume fraction] 40.7 % Normal 39.0-51.0 [facility] Comment on above: Order Comment: Speci men Type: BLOOD SPECIMEN [facility] Address: [address] [place] [address] Performed By: #### 4 024-6, 5643-2, 7 #### [facility] CLIA [id number] [address] [place] [address] [place] Hemoglobin (Bld) [Mass/Vol] 13.6 g/dL Normal 13.0-17.0 [facility] Comment on above: Order Comment: Speci men Type: BLOOD SPECIMEN [facility] Address: [address] [place] [address] Performed By: #### 4 024-6, 5643-2, 3297-10 #### [facility] CLIA [id number] [address] [place] [address] [place] Immature granulocytes (Bld) [#/Vol] 0.07 10*3/uL Normal <0.10 [facility] Comment on above: Order Comment: Speci men Type: BLOOD SPECIMEN [facility] Address: [address] [place] [address] Performed By: #### 4 024-6, 5643-2, 3297-10 #### [facility] CLIA [id number] [address] [place] [address] [place] Immature granulocytes/100 WBC (Bld) 0.5 % Normal [facility] Comment on above: Order Comment: Speci men Type: BLOOD SPECIMEN [facility] Address: [address] [place] [address] Performed By: #### 4 024-6, 2, 3297-10 #### [facility] CLIA [id number] [address] [place] [address] [place] Lymphocytes (Bld) [#/Vol] 3.22 10*3/uL Normal 1.00-4.00 [facility] Comment on above: Order Comment: Speci men Type: BLOOD SPECIMEN [facility] Address: [address] [place] [address] Performed By: #### 4 024-6, 5643-2, 3297-10 #### [facility] CLIA [id number] [address] [place] [address] [facility] [place] Lymphocytes/100 WBC (Bld) 24.1 % Normal [facility] Comment on above: Order Comment: Speci men Type: BLOOD SPECIMEN [facility] Address: [address] [place] [address] Performed By: #### 4 024-6, 5643-2, 7 #### [facility] CLIA [id number] [address] [place] [address] [facility] MCH (RBC) [Entitic mass] 29.8 pg Normal 26.0-34.0 [facility] Comment on above: Order Comment: Speci men Type: BLOOD SPECIMEN [facility] Address: [address] [place] [address] Performed By: #### 4 024-6, 5643-2, 3297-10 #### [facility] CLIA [id number] [address] [id number] [facility] MCHC (RBC) [Mass/Vol] 33.4 g/dL Normal 30.5-36.0 [facility] Comment on above: Order Comment: Speci men Type: BLOOD SPECIMEN [facility] Address: [address] [place] [address] Performed By: #### 4 024-6, 5643-2, 3297-10 #### [facility] CLIA [id number] [address] [place] [address] [place] MCV (RBC) [Entitic vol] 89.3 fL Normal 80.0-100.0 [facility] Comment on above: Order Comment: Speci men Type: BLOOD SPECIMEN [facility] Address: [address] [place] [address] Performed By: #### 4 024-6, 5643-2, 7 #### [facility] CLIA [id number] [address] [place] [address] [facility] Monocytes (Bld) [#/Vol] 1.15 10*3/uL High <0.87 [facility] Comment on above: Order Comment: Speci men Type: BLOOD SPECIMEN [facility] Address: [address] [place] [address] Performed By: #### 4 024-6, 5643-2, 3297-10 #### [facility] CLIA [id number] [address] [place] [address] [place] Monocytes/100 WBC (Bld) 8.6 % Normal [facility] Comment on above: Order Comment: Speci men Type: BLOOD SPECIMEN [facility] Address: [address] [place] [address] Performed By: #### 4 024-6, 5643-2, 3297-10 #### [facility] CLIA [id number] [address] [place] [address] [place] Neutrophils (Bld) [#/Vol] 8.83 10*3/uL High 1.45-7.50 [facility] Comment on above: Order Comment: Speci men Type: BLOOD SPECIMEN [facility] Address: [address] [place] [address] Performed By: #### 4 024-6, 5642-05, 3297-10 #### [facility] CLIA [id number] [address] [place] [address] [place] Neutrophils/100 WBC (Bld) 66.0 % Normal [facility] Comment on above: Order Comment: Speci men Type: BLOOD SPECIMEN [facility] Address: [address] [place] [address] Performed By: #### 4 024-6, 5642-2, 3297-10 #### [facility] CLIA [id number] [address] [place] [address] [place] Nucleated RBC (Bld) [#/Vol] 10*3/uL Normal <0.01 [facility] Comment on above: Order Comment: Speci men Type: BLOOD SPECIMEN [facility] Address: [address] [place] [address] Performed By: #### 4 024-6, 5643-2, 7 #### [facility] CLIA [id number] [address] [place] [address] [place] Nucleated RBC/100 WBC (Bld) [Ratio] 0.0 /100 WBC Normal [facility] Comment on above: Order Comment: Speci men Type: BLOOD SPECIMEN [facility] Address: [address] [place] [address] Performed By: #### 4 024-6, 5643-2, 7 #### [facility] CLIA [id number] [address] [place] [address] [place] Platelet mean volume (Bld) [Entitic vol] 9.3 fL Normal 9.0-12.7 [facility] Comment on above: Order Comment: Speci men Type: BLOOD SPECIMEN [facility] Address: [address] [place] [address] Performed By: #### 4 024-6, 5643-2, 7 #### [facility] CLIA [id number] [address] [place] [address] [place] Platelets (Bld) [#/Vol] 206 10*3/uL Normal 150-400 [facility] Comment on above: Order Comment: Speci men Type: BLOOD SPECIMEN [facility] Address: [address] [place] [address] Performed By: #### 4 024-6, 5643-2, 3297-10 #### [facility] CLIA [id number] [address] [place] [address] [place] RBC (Bld) [#/Vol] 4.56 10*6/uL Normal 4.20-6.00 [facility] Comment on above: Order Comment: Speci men Type: BLOOD SPECIMEN [facility] Address: [address] [place] [address] Performed By: #### 4 024-6, 5643-2, 7 #### [facility] CLIA [id number] [address] [place] [address] [place] WBC (Bld) [#/Vol] 13.38 10*3/uL High 3.70-11.00 [facility] Comment on above: Order Comment: Speci men Type: BLOOD SPECIMEN [facility] Address: [address], [place] [address] Performed By: #### 4 024-6, 5643-2, 3298-7 #### [facility] CLIA [id number] [address] [place], [place] [address] [facility] CONSULTon 01-05-2023 CONSULT HNO ID: [id number] Author: Renetta Flores MD Service: Psychiatry Author Type: Physician Type: Consults Filed: 01/05/2023 1:40 PM Note Text: CL NEW - PSYCHIATRY INITIAL CONSULTATION NOTE To get ahold of service: DAY TIME COVERAGE: Between 8AM to 5PM, contact Katie Sow CNP, Dr. Kenny, or Trupti Garcia CNP. See hospital directory for numbers NIGHT, WEEKEND, AND HOLIDAY COVERAGE: After hours (5PM to 8AM), holidays AND weekends, call answering service at [phone] SERVICE DATE: January 05, 2023 SERVICE TIME: 1147 CONSULTING SERVICE : Psychiatry, requested by Dr. Appiah, Nathan Stephenson,*'s team REASON FOR CONSULTATION: Patient request, continues to swallow objects. IDENTIFYING INFO: Mr. Pemberton is a 32 year old male from [place], [place]. HISTORY OF PRESENT ILLNESS : Mr. Pemberton is a 32 year old male with a reported psychiatric history of ADHD who presented from longterm after reportedly swallowing batteries and a razor blade. Patient denied self-harm intent. Per chart review, patient swallows objects to get out of longterm. This is his 6th hospital visit in [...] prescribed those medications prior to being in longterm. However he is unable to state the [...] HISTORY: Diagnoses: Bipolar, ADHD, Current Psychiatrist: previously [facility] child psychiatry, unsure who was last [...] OCD: Denies any symptoms of OCD. PTSD: Experienced/witnessed trauma that threatened one's integrity. The remainder [...] SURGICAL HISTORY Procedure Laterality Date NONE Current Facility-Administered Medications Medication Dose Route Frequency nicotine 14 [...] readily, manipulative (more content not included)... Normal [facility] CONSULT PROGon 01-05-2023 CONSULT PROG HNO ID: [id number] Author: Jenna Sousa MD Service: General Surgery Author Type: Physician Type: Consult Progress Note Filed: 01/05/2023 9:40 PM Note Text: Emergency General Surgery Progress Note SERVICE DATE: January 05, 2023 Emergency General Surgery Service Pager: For questions or concerns Mon-Fri 6a-5p please page [phone]. After 5pm and on Weekends and Holidays, please page [phone] if in ICU or [phone] if on RNF. SUBJECTIVE: HPI: 32 year old male w/ a history of ADHD, tobacco use, who presented to to ED for foreign object ingestion. Patient is known to the medicine service for prior admission for swallowing objects when incarcerated to get out of longterm. Presented after ingesting batteries and a supposed [...] Therapy: Room Air IANDO: Date 01/04/23699 - 01/05/23 0601/05/23699 - 01/06/23 0659 Shift 9249-4227 6259-2370 1240-2514 24 Hour Total 6001-2474 7176-8451 7345-3384 24 Hour Total INTAKE IV 500 500 Volume (mL) (lactated ringers iv infusion) 500 500 Shift Total 500 500 OUTPUT Urine Urine Not Saved. 1 x 1 x 2 x Shift Total Weight (kg) 61.8 61.8 61.8 61.8 61.8 61.8 61.8 61.8 MEDICATIONS Current Facility-Administered Medications Medication Dose Route Frequency nicotine 14 [...] mg ORAL q 4 H PRN aluminum-magnesium hydroxide-simethicone 200-200-20 mg/5 mL [...] TID PRN sodium chloride 0.65 % 2 [place] 2 [place] EACH NOSTRIL PRN prochlorperazine 10 mg injection [...] ingestion of FB: battery, possible razor Hospital Course/Operations/Proce dures: 01/04/2023 Procedure(s): EGD WITH REMOVAL FOREIGN BODY Plan: S/p EGD per GI on 01/04 with removal of FB - Regular diet - Monitor abdominal exam closely - Monitor BMs - hat in toilet - Daily KUB recommended - PPI per GI - Hold VTE ppx Discussed with attending: Dr. Sousa Follow up needs: TBD SIGNATURE: Cece Abdi APRN.ROLL TENSION TESTER PATIENT NAME: Keke Pemberton DATE: January 05, 2023 TIME: 827 Pager: [phone] Emergency Gene (more content not included)... Normal [facility] Comprehensive metabolic 2000 panelon 01-05-2023 Albumin [Mass/Vol] 4.1 g/dL Normal 3.9-4.9 [facility] Comment on above: Order Comment: Speci men Type: BLOOD SPECIMEN [facility] Address: [address] [place] [address] Performed By: #### 4 024-6, 5643-2, 3298-7 #### [facility] CLIA [id number] [address] [place], [place] [address] [place] [address] [facility] ALP [Catalytic activity/Vol] 100 U/L Normal 38-113 [facility] Comment on above: Order Comment: Speci men Type: BLOOD SPECIMEN [facility] Address: [address] [place] [address] Performed By: #### 4 024-6, 5643-2, 733-7 #### [facility] CLIA [id number] [address] STATES OF [facility] ALT With P-5'-P [Catalytic activity/Vol] 37 U/L Normal 10-54 [facility] Comment on above: Order Comment: Speci men Type: BLOOD SPECIMEN [facility] Address: [address] [place] [address] Performed By: #### 4 024-6, 5643-2, 2997 #### [facility] CLIA [id number] [address] STATES OF [facility] Anion gap [Moles/Vol] 11 mmol/L Normal 9-18 [facility] Comment on above: Order Comment: Speci men Type: BLOOD SPECIMEN [facility] Address: [address] [place] [address] Performed By: #### 4 024-6, 5643-2, 693-7 #### [facility] CLIA [id number] [address] [place] [address] [place] [facility] AST With P-5'-P [Catalytic activity/Vol] 17 U/L Normal 14-40 [facility] Comment on above: Order Comment: Speci men Type: BLOOD SPECIMEN [facility] Address: [address] [address] Performed By: #### 4 024-6, 5643-2, 3297-10 #### [facility] CLIA [id number] [address] [place] [address] [place] Bilirubin [Mass/Vol] 0.2 mg/dL Normal 0.2-1.3 [facility] Comment on above: Order Comment: Speci men Type: BLOOD SPECIMEN [facility] Address: [address] [address] Performed By: #### 4 024-6, 5643-2, 3297-10 #### [facility] CLIA [id number] [address] [place] [address] [place] Calcium [Mass/Vol] 8.9 mg/dL Normal 8.5-10.2 [facility] Comment on above: Order Comment: Speci men Type: BLOOD SPECIMEN [facility] Address: [address] [address] Performed By: #### 4 024-6, 5642-2, 3297-10 #### [facility] CLIA [id number] [address] [place] [address] [place] Chloride [Moles/Vol] 106 mmol/L High 97-105 [facility] Comment on above: Order Comment: Speci men Type: BLOOD SPECIMEN [facility] Address: [address] [address] Performed By: #### 4 024-6, 5643-2, 3297-10 #### [facility] CLIA [id number] [address] [place] [address] [place] CO2 [Moles/Vol] 25 mmol/L Normal 22-30 [facility] Comment on above: Order Comment: Speci men Type: BLOOD SPECIMEN [facility] Address: [address] [address] Performed By: #### 4 024-6, 5643-2, 3298-7 #### [facility] CLIA [id number] [address] [place] [address] [place] Creatinine [Mass/Vol] 0.74 mg/dL Normal 0.73-1.22 [facility] Comment on above: Order Comment: Yeyo velasquez Type: BLOOD SPECIMEN [facility] Address: [address] [address] Performed By: #### 4 024-6, 5643-2, 3298-7 #### [facility] CLIA [id number] [address] [place] [address] [facility] Creatinine and Glomerular filtration rate.predicted panel (S/P/Bld) 123 mL/min/1.73m??? Normal >=60 [facility] Comment on above: Order Comment: Yeyo velasquez Type: BLOOD SPECIMEN [facility] Address: [address] [place] [address] Result Comment: Erica mated Glomerular Filtration Rate [...] GFR. Performed By: #### 4 024-6, 5643-2, 3298-7 #### [facility] CLIA [id number] [address] [place] [address] [place] Glucose [Mass/Vol] 91 mg/dL Normal 74-99 [facility] Comment on above: Order Comment: Yeyo velasquez Type: BLOOD SPECIMEN [facility] Address: [address] [place] [address] Result Comment: The [employer] [place] [employer] (ADA) provides guidance for cutoff [...] Standards of Medical Care in Diabetes 2016, [employer]. Diabetes Care. 2016.39(Suppl 1). Performed By: #### 4 024-6, 5643-2, 3297 #### [facility] CLIA [id number] [address] [place] [address] [place] Potassium [Moles/Vol] 3.8 mmol/L Normal 3.7-5.1 [facility] Comment on above: Order Comment: Yeyo velasquez Type: BLOOD SPECIMEN [facility] Address: [address] [place] [address] Performed By: #### 4 024-6, 5643-, 3297-10 #### [facility] CLIA [id number] [address] [place] [address] [place] Protein [Mass/Vol] 6.2 g/dL Low 6.3-8.0 [facility] Comment on above: Order Comment: Yeyo velasquez Type: BLOOD SPECIMEN [facility] Address: [address] [place] [address] Performed By: #### 4 024-6, 5643-2, 3297-10 #### [facility] CLIA [id number] [address] [place] [address] [place] Sodium [Moles/Vol] 142 mmol/L Normal 136-144 [facility] Comment on above: Order Comment: Yeyo velasquez Type: BLOOD SPECIMEN [facility] Address: [address] [place] [address] Performed By: #### 4 024-6, 5643-2, 3297 #### [facility] CLIA [id number] [address] [place] [address] [place] Urea nitrogen [Mass/Vol] 9 mg/dL Normal 9-24 [facility] Comment on above: Order Comment: Speci men Type: BLOOD SPECIMEN [facility] Address: [address] [place] [address] Performed By: #### 4 024-6, 5643-2, 3298-7 #### [facility] CLIA [id number] [address] [place] [address] [facility] NURSING PROGon 01-05-2023 NURSING PROG HNO ID: [id number] Author: Mirna Box RN Service: Nursing Author Type: Registered Nurse Type: Nursing Progress Note Filed: 01/05/2023 7:42 PM Note Text: 1800: pt had formed medium BM, no battery noted in it. If pt is discharged tomorrow to call [facility] police, ask for [facility] Bk :[phone] Normal [facility] NURSING PROG HNO ID: [id number] Author: Aggie Wan, DEMARCO Service: ? Author Type: Registered Nurse Type: Nursing Progress Note Filed: 01/04/2023 10:55 PM Note Text: Pt refusing IV fluids. Pt states IV hurts and is burning. This RN offered to change IV site and pt still refusing. Pt educated on reason for IV fluids and he continued to refuse. Will re attempt in AM. DAMARIS Russell notified. Normal [facility] XR ABDOMEN 1V SUPINEon 01-05 XR ABDOMEN [...] is no longer seen. Nonspecific gas pattern Miner Pick: HEAVENLY Transcribe Date/Time: Jan 05 2023 8:12A Dictated by : DMITRY PUGA MD This examination was interpreted and the report reviewed and electronically signed by: DMITRY PUGA MD on Jan 05 2023 8:13AM EST [id number] Normal [facility] HEALTHon 01-04-2023 ALLIED HEALTH HNO ID: [id number] Author: Sabrina Alas RT(R) Service: Radiology Author Type: Saw Runner Type: Allied Health Filed: 01/04/2023 10:44 AM [...] RT Luciano(R) January 04, 2023 10:44 AM Normal [facility] ALLIED HEALTH HNO ID: [id number] Author: Phyllis Velarde RT(R) Service: ? Author Type: Saw Runner Type: Allied Health Filed: 01/04/2023 12:07 AM [...] IV DATA: Not applicable SIGNED BY: tom faye RT(R) January 04, 2023 12:07 AM Normal [facility] ANES POSTPROC EVALon 023 ANES POSTPROC EVAL HNO ID: [id number] Author: Sen Ramirez MD Service: Anesthesiology Author Type: Physician Type: Anesthesia Postprocedure Evaluation Filed: 01/04/2023 5:56 PM Note Text: POST ANESTHESIA EVALUATION NOTE : 1990 Procedure Summary Date: 01/04/23 Room / Location: NC OR 08 / NC OR Anesthesia Start: 1258 Anesthesia Stop: 1328 [...] January 04, 2023 TIME: 5:56 PM CSN: [id number] [facility] ANES PRE-OPon 01-04-2023 ANES PRE-OP HNO ID: [id number] Author: Sen Ramirez MD Service: Anesthesiology Author [...] 01/04/23 1141 SpO2 100 % 01/04/23 1141 Facility-Administered Medications as of 01/04/2023 Medication Dose Route [...] on Transfer] buPROPion SR 150 mg tab(s) (MATTHEW SR; WELLBUTRIN SR) 150 mg ORAL BID [...] December 26, 2022 TIME: 11:07 AM CSN: [id number] Normal [facility] CONSULTon 01-04-2023 CONSULT HNO ID: [id number] Author: Jenna Sousa MD Service: General Surgery [...] along with the razor blade while in longterm. His CXR did not show any acute [...] daily., Disp: , Rfl: , Unknown Current Facility-Administered Medications Medication Dose Route Frequency [...] in the last 72 hours. Invalid input(s): [facility] Diagnostic tests reviewed for today's visit: XR CHEST 1V FRONTAL Final Result IMPRESSION: New curvilinear metallic gastric foreign body adjacent the prior battery. 2 new rectal batteries. Miner Pick: [place] Transcribe Date/Time: Jan 04 2023 12:07A Dictated by : FRITZ DOUGLASS MD This examination was interpreted and the report reviewed and electronically signed by: FRITZ DOUGLASS MD on Jan 04 2023 12:17AM EST XR ABDOMEN 1V SUPINE Final Result IMPRESSION: New curvilinear metallic gastric foreign body adjacent the prior battery. 2 new rectal batteries. Miner Pick: [place] Transcribe Date/Time: Jan 04 2023 12:07A Dictated [...] surgical int (more content not included)... Normal [facility] H. pylori IgG IA Qlon 2022 H. PYLORI IGG, QUAL Negative Normal Negative [facility] Comment on above: Order Comment: Speci men Type: BLOOD SPECIMEN [facility] Address: [address] [place] [address] [place] [address] Result Comment: Juan ot exclude H. pylori infection if the specimen collected 3-4 weeks after onset of symptoms. Performed By: #### 4 024-6, 5643-2, 3298-7 #### [facility] CLIA [id number] [address] [place] [address] [place] HISTORY PHYSICALon 3 HISTORY PHYSICAL HNO ID: [id number] Author: Amy Herzog DO Service: Hospital Medicine Author Type: Physician Type: HANDP Filed: 01/03/2023 11:36 PM Note Text: DEPARTMENT OF HOSPITAL MEDICINE HISTORY AND PHYSICAL EXAM SERVICE DATE: 01/03/2023 SERVICE TIME: 11:29 PM Primary Care Physician: No primary care provider on file. NIGHT AND WEEKEND COVERAGE: From 7am - 7pm, please call Sound After 7pm, please call cross cover pager #[phone] Subjective CHIEF COMPLAINT: Follow-up foreign body HPI: This is a 32 year old male who presents with swelling a battery in reasonably. Patient is known to me from prior admission where he was incarcerated and swallows objects to get out of longterm. He swallowed a battery and he told me he swallowed a razor blade today. He relates that he just does not know why he does this and is currently requesting to see a psychiatrist. No chest pain. He is complaining of some abdominal pain. Currently furloughed from longterm. The ER did have concern that a [...] bedtime. 0.5-2 tablets at bedtime as needed Facility-Administered Medications: None ALLERGIES No Known Allergies REVIEW [...] VTE Prophylaxis: (more content not included)... Normal [facility] OPERATIVE NOon 01-04-2023 OPERATIVE NO HNO ID: [id number] Author: Angel Braun MD Service: Gastroenterology Author Type: Physician Type: Operative Report Filed: 01/04/2023 1:27 PM Note Text: OPERATIVE/PROCEDURE REPORT LOG ID: [id number] SURGERY/PROCEDURE DATE: 01/04/2023 INCISION/PROCEDURE START TIME: 1:06 PM INCISION CLOSE/PROCEDURE END TIME: 1:11 PM SURGEON(S)/PROCEDURALIS T(S) AND BREAST PULLER(S): Surgeon(s) and Role: * Angel Braun MD - Primary No Additional Staff SURGERY/PROCEDURE(S): Egd with foreign body removal ANESTHESIA: general SURGERY/PROCEDURE DETAILS: post oropharynx normal z line 40 cm ge junction intact fundus franco body mild erosive gastritis angularis normal prepyloric 8mm clean based ulcer duod bulb normal d2 foreign body removed via rat tooth forceps PRE-OP/PRE-PROCEDURE DIAGNOSIS: foreign body in stomach POST-OP/POST-PROCEDURE DIAGNOSIS: prepyloric ulcer erosive gastritis foreign body removal of a wall clip from d2 ESTIMATED BLOOD LOSS: 0 ml SPECIMENS: None IMPLANTABLE DEVICES: NONE DRAINS: None COMPLICATIONS: None CLOSURE TECHNIQUE: Primary PARTICIPATION IN SURGERY/PROCEDURE: I/primary surgeon/proceduralist performed the procedure with assistance. Regular diet preop meds cont ppi/carafate start metamucil till all batteries have passed ok for psych and social service eval while in house check h pylori antibody SIGNATURE: Angel Braun MD PATIENT NAME: Keke Pemberton DATE: January 04, 2023 TIME: 1:22 PM Normal [facility] Upper GI endoscopyon 023 Upper GI endoscopy [facility] Gastrointestinal Endoscopy Patient Name: Keke Pemberton [...] antiplatelet agents. Procedure Code(s): --- Professional --- 12364, Esophagogastroduodenosc opy, flexible, transoral; with removal of foreign body(s) --- Technical --- 72824, Esophagogastroduodenosc opy, flexible, transoral; with removal of foreign body(s) [...] in stomach, initial encounter CPT copyright 2020 [employer]. All rights reserved. The codes documented in this report are preliminary and upon physician coder review may be revised to meet current compliance requirements. Attending Participation: I personally performed the entire procedure. Scope In: 1:06:21 PM Scope Out: 1:10:16 PM MD Angel Mcfarland MD 01/04/2023 3:33:36 PM This report has been signed electronically by Angel Braun MD Number of Addenda: 0 (more content not included)... Normal [facility] XR ABDOMEN 1V SUPINEon 01-04 XR ABDOMEN [...] further evaluate position of the foreign bodies. Miner Pick: PSCB Transcribe Date/Time: Jan 05 2023 10:37A Dictated by : DMITRY PUGA MD This examination was interpreted and the report reviewed and electronically signed by: DMITRY PUGA MD on Jan 05 2023 10:38AM EST [id number] Normal [facility] XR ABDOMEN 1V SUPINE * * *Final [...] the prior battery. 2 new rectal batteries. Miner Pick: HEAVENLY Transcribe Date/Time: Jan 04 2023 12:07A Dictated by : FRITZ DOUGLASS MD This examination was interpreted and the report reviewed and electronically signed by: FRITZ DOUGLASS MD on Jan 04 2023 12:17AM EST [id number] Normal [facility] XR CHEST 1V FRONTALon 2022 XR CHEST [...] the prior battery. 2 new rectal batteries. Miner Pick: HEAVENLY Transcribe Date/Time: Jan 04 2023 12:07A Dictated by : FRITZ DOUGLASS MD This examination was interpreted and the report reviewed and electronically signed by: FRITZ DOUGLASS MD on Jan 04 2023 12:17AM EST [id number] Normal [facility] ED NOTEon 01-03-2023 ED NOTE HNO ID: [id number] Author: Rubi Ugalde RN Service: Emergency Medicine Author Type: Registered Nurse Type: ED Notes Filed: 01/03/2023 10:09 PM Note Text: While cleaning pt's room, it was noted that the remote for the TV was missing. Receiving nurse at [facility] notified. Normal [facility] ED NOTE HNO ID: [id number] Author: Jenna Munson, RN Service: Emergency Medicine Author Type: Registered Nurse Type: ED Notes Filed: 01/03/2023 8:51 PM Note Text: Transfer line called with bed assignment -[facility] 2108 - report number [id number] -called [facility] for transport, eta [address] [facility] ED NOTE HNO ID: [id number] Author: Rubi Ugalde RN Service: Emergency Medicine Author Type: Registered Nurse Type: ED Notes Filed: 01/03/2023 8:56 PM Note Text: Per Dr. Musa pt to only be given clear liquids at this point on. Pt notified [facility] ED NOTE HNO ID: [id number] Author: Rubi Ugalde RN Service: Emergency Medicine Author Type: Registered Nurse Type: ED Notes Filed: 01/03/2023 7:40 PM Note Text: Pt placed on furlough by [facility]. Copies of furlough agreement to be sent with pt. Pt verbalized understanding of furlough [facility] ED NOTE HNO ID: [id number] Author: Rubi Ugalde RN Service: Emergency Medicine Author Type: Registered Nurse Type: ED Notes Filed: 01/03/2023 7:15 PM Note Text: Spoke with Abdullahi at [facility]. Pt gave consent via phone to talk [...] 150mg Daily. Dr. Musa updated on findings [facility] ED PROV NOTEon 01-03-2023 ED PROV NOTE HNO ID: [id number] Author: Eva Musa MD Service: Emergency Medicine [...] / Clinical Impression Clinical Impressions as of 01/03/232 Foreign body ingestion MDM / Disposition / [...] AP portable chest radiograph. Case reviewed with MANDEEP Gotti. At this time he recommended admission to [...] reviewed with surgery. Will be transferred to [facility]. Patient admission accepted by Dr. Diaz. SIGNATURE: MD LUKE Case ELENI 01/03/23 2242 Normal [facility] XR ABDOMEN 1V SUPINEon 01-03 XR ABDOMEN 1V SUPINE * * *Final Report* * * DATE OF EXAM: Jan 03 2023 6:41PM LDX 5289 - XR ABDOMEN 1V SUPINE / PROCEDURE REASON: Other (document in comments) * * * * Physician Interpretation * * * * EXAMINATION: CHEST RADIOGRAPH (SINGLE VIEW AP OR PA); XR ABDOMEN 1V SUPINE CLINICAL HISTORY: Ingestion of foreign rpoo-Lkpqtg-E battery MQ: XC1_5 Comparison: Abdominal radiograph 12/26/2022 [...] airspace disease on AP portable chest radiograph. Miner Pick: HEAVENLY Transcribe Date/Time: Jan 03 2023 6:51P Dictated by : FRANCISCO JAVIER GAVIRIA MD This examination was interpreted and the report reviewed and electronically signed by: FRANCISCO JAVIER GAVIRIA MD on Jan 03 2023 6:56PM EST [id number] Normal [facility] XR CHEST 1V FRONTALon 2022 XR CHEST 1V FRONTAL * * *Final Report* * * DATE OF EXAM: Jan 03 2023 6:41PM LDX 5290 - XR CHEST 1V FRONTAL / PROCEDURE REASON: Other (document in comments) * * * * Physician Interpretation * * * * EXAMINATION: CHEST RADIOGRAPH (SINGLE VIEW AP OR PA); XR ABDOMEN 1V SUPINE CLINICAL HISTORY: Ingestion of foreign mlqi-Mdciyh-N battery MQ: XC1_5 Comparison: Abdominal radiograph 12/26/2022 [...] airspace disease on AP portable chest radiograph. Miner Pick: PSCFrandy Transcribe Date/Time: Jan 03 2023 6:51P Dictated by : FRANCISCO JAVIER GAVIRIA MD This examination was interpreted and the report reviewed and electronically signed by: FRANCISCO JAVIER GAVIRIA MD on Jan 03 2023 6:56PM EST [id number] Normal [facility] ANES POSTPROC EVALon 023 ANES POSTPROC EVAL HNO ID: [id number] Author: Sabrina Hollingsworth MD Service: Anesthesiology Author Type: Physician Type: Anesthesia Postprocedure Evaluation Filed: 12/26/2022 2:29 PM Note Text: POST ANESTHESIA EVALUATION NOTE : 1990 Procedure Summary Date: 12/26/22 Room / Location: [place] OR / NC OR Anesthesia Start: 1130 Anesthesia Stop: 1207 [...] December 26, 2022 TIME: 2:28 PM CSN: [id number] [facility] ANES PRE-OPon 12-26-2022 ANES PRE-OP HNO ID: [id number] Author: Sabrina Hollingsworth MD Service: Anesthesiology Author [...] REMOVAL FOREIGN BODY (Abdomen) Location: [place] OR / [place] OR Surgeons: Yadiel Cheng MD Estimated body [...] 1050 Vitals shown include unvalidated device data. Facility-Administered Medications as of 12/26/2022 Medication Dose Route Frequency - morphine 2 mg injection 2 mg INTRAVENOUS q 4 H PRN - heparin 5,000 Units injection 5,000 Units SUBCUTANEOUS q 12 H - NaCl 0.9% iv flush bag 20 mL INTRAVENOUS PRN - aluminum-magnesium hydroxide-simethicone 200-200-20 mg/5 mL 30 mL [...] verify patch OTHER q 8 H - oxyCODONE-acetaminophen 5-325 mg 1-2 tablet (PERCOCET) 1-2 tablet [...] December 26, 2022 TIME: 11:07 AM CSN: [id number] [facility] CASE MGT INIT [place] 2022 CASE MGT INIT [facility] HNO ID: [id number] Author: Malini Cruz LSW Service: ? Author Type: Irrigation Foreman Type: Care Mgt Initial Assessment Filed: 12/26/2022 2:35 PM Note Text: CARE MANAGEMENT: ASSESSMENT AND DISCHARGE PLAN SERVICE DATE: December 26, 2022 SERVICE TIME: 2:33 PM PCP: No primary care provider on file. 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 No Discharge Planning Participant(s): Patient/Family Comments: Caregiver Assessment: Caregiver is ready, willing and able to meet the patient's needs as recommended by the inter-professional team: No Transport at Discharge: Transportation Arrangements: Car Destination: [facility] Needs Prior to Discharge: Needs Prior to Discharge: (medical clearance) Post-Acute Discharge Plan: Sw spoke to [facility] and plan is for patient to return at discharge. Patient is not to leave with family or on his own. 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 SIGNATURE: RICHELLE Sanchez PATIENT NAME: Keke Pemberton DATE: December 26, 2022 TIME: 2:32 PM CONTACT #: [phone] Normal [facility] CBC panel Auto (Bld)on 12-26 Erythrocyte distribution width (RBC) [Ratio] 13.4 % Normal 11.5-15.0 [facility] Comment on above: Order Comment: Yeyo velasquez Type: BLOOD SPECIMENOrdering Facility: [facility] Address: [address] [place] [address] Performed By: #### 5 8410-2 ####[facility] LABORATORYCLIA [id number] [address] [place] Hematocrit (Bld) [Volume fraction] 42.4 % Normal 39.0-51.0 [facility] Comment on above: Order Comment: Yeyo velasquez Type: BLOOD SPECIMENOrdering Facility: [facility] Address: [address] [place] [address] Performed By: #### 5 8410-2 ####[facility] LABORATORYCLIA [id number] [address] [place] Hemoglobin (Bld) [Mass/Vol] 14.3 g/dL Normal 13.0-17.0 [facility] Comment on above: Order Comment: Yeyo velasquez Type: BLOOD SPECIMENOrdering Facility: [facility] Address: [address] [place] [address] Performed By: #### 5 8410-2 ####[facility] LABORATORYCLIA [id number] [address] [place] MCH (RBC) [Entitic mass] 29.1 pg Normal 26.0-34.0 [facility] Comment on above: Order Comment: Speci men Type: BLOOD SPECIMENOrdering Facility: [facility] Address: [address] [place] [address] Performed By: #### 5 8410-2 ####[facility] LABORATORYCLIA [id number] [address] MCHC (RBC) [Mass/Vol] 33.7 g/dL Normal 30.5-36.0 [facility] Comment on above: Order Comment: Speci men Type: BLOOD SPECIMENOrdering Facility: [facility] Address: [address] [place] [address] Performed By: #### 5 8410-2 ####[facility] LABORATORYCLIA [id number] [address] [place] MCV (RBC) [Entitic vol] 86.4 fL Normal 80.0-100.0 [facility] Comment on above: Order Comment: Speci men Type: BLOOD SPECIMENOrdering Facility: [facility] Address: [address] [place] [address] Performed By: #### 5 8410-2 ####[facility] LABORATORYCLIA [id number] [address] Nucleated RBC (Bld) [#/Vol] 10*3/uL Normal <0.01 [facility] Comment on above: Order Comment: Speci men Type: BLOOD SPECIMENOrdering Facility: [facility] Address: [address] [place] [address] Performed By: #### 5 8410-2 ####[facility] LABORATORYCLIA [id number] [address] STATES [facility] Platelet mean volume (Bld) [Entitic vol] 9.5 fL Normal 9.0-12.7 [facility] Comment on above: Order Comment: Speci men Type: BLOOD SPECIMENOrdering Facility: [facility] Address: [address] [place] [address] Performed By: #### 5 8410-2 ####[facility]ITAL[facility] [id number] [place] [id number] [facility] [place] Platelets (Bld) [#/Vol] 445 10*3/uL High 150-400 [facility] Comment on above: Order Comment: Yeyo velasquez Type: BLOOD SPECIMENOrdering Facility: [facility] Address: [address] [place] [address] Performed By: #### 5 8410-2 ####[facility] LABORATORYCLIA [id number] [address] RBC (Bld) [#/Vol] 4.91 10*6/uL Normal 4.20-6.00 [facility] Comment on above: Order Comment: Yeyo velasquez Type: BLOOD SPECIMENOrdering Facility: [facility] Address: [address] [place] [address] Performed By: #### 5 8410-2 ####[facility] LABORATORYCLIA [id number] [address] WBC (Bld) [#/Vol] 12.35 10*3/uL High 3.70-11.00 [facility] Comment on above: Order Comment: Yeyo velasquez Type: BLOOD SPECIMENOrdering Facility: [facility] Address: [address] [place] [address] Performed By: #### 5 8410-2 ####[facility] LABORATORYCLIA [id number] [place] [id number] [facility] CNDSon 12-26-2022 CNDS HNO ID: [id number] Author: Andreas Mock MD Service: Hospital Medicine [...] you were brought to the ED from longterm after swallowing a foreign object, visible on [...] results. FOLLOW-UP APPOINTMENTS ALREADY SCHEDULED WITH A [facility] PROVIDER: No future appointments. ALLERGIES No Known [...] GI, and Pharmacist I have performed the [id number] and relevant services for a total of 35 minutes. SIGNATURE: Andreas Mock MD DATE: December 26, 2022 TIME: 2:14 PM Normal [facility] CONSULTon 12-26-2022 CONSULT HNO ID: [id number] Author: Mario Harrison APRN.KORIN Service: Gastroenterology Author [...] attempt to try to get out of longterm. He was cleared from a psychiatric standpoint. [...] mg by mouth twice daily.Disp: Rfl: Current Facility-Administered Medications Medication Dose Route Frequency heparin 5,000 Units injection 5,000 Units SUBCUTANEOUS q 12 H NaCl 0.9% iv flush bag 20 mL INTRAVENOUS PRN aluminum-magnesium hydroxide-simethicone 200-200-20 mg/5 mL 30 [...] - verify patch OTHER q 8 H oxyCODONE-acetaminophen 5-325 mg 1-2 tablet (PERCOCET) 1-2 tablet [...] Abs Lymph 1.00 - 4.00 k/uL 2.59 Fleming% % 9.8 Abs Fleming <0.87 k/uL 0.94 (H) Eosin% % 0.6 Abs Eosin <0.46 k/uL 0.06 Baso% % 0.4 Abs Baso <0.11 k/uL 0.04 Immature Gran % % 0.8 IMMATURE GRANS (ABS) <0.1 (more content not included)... Normal [facility] Comprehensive metabolic 2000 panelon 12-26-2022 Albumin [Mass/Vol] 4.4 g/dL Normal 3.9-4.9 [facility] Comment on above: Order Comment: Speci men Type: BLOOD SPECIMEN [facility] Address: [address] [place] [address] Performed By: #### 4 024-6, 5643-2, 7 #### [facility] CLIA [id number] [address] [place] [address] [place] [facility] ALP [Catalytic activity/Vol] 97 U/L Normal 38-113 [facility] Comment on above: Order Comment: Speci men Type: BLOOD SPECIMEN [facility] Address: [address] [place] [address] Performed By: #### 4 024-6, 5643-2, 7 #### [facility] CLIA [id number] [address] [place], [place] [address] [place] [address] [place] [facility] ALT With P-5'-P [Catalytic activity/Vol] 57 U/L High 10-54 [facility] Comment on above: Order Comment: Speci men Type: BLOOD SPECIMEN [facility] Address: [address] [place] [address] Performed By: #### 4 024-6, 5643-2, 7 #### [facility] CLIA [id number] [address] [place] [address] [place] [facility] Anion gap [Moles/Vol] 13 mmol/L Normal 9-18 [facility] Comment on above: Order Comment: Speci men Type: BLOOD SPECIMEN [facility] Address: [address] [place] [address] Performed By: #### 4 024-6, 5643-2, 7 #### [facility] CLIA [id number] [address] [place] [address] [place] AST With P-5'-P [Catalytic activity/Vol] 28 U/L Normal 14-40 [facility] Comment on above: Order Comment: Speci men Type: BLOOD SPECIMEN [facility] Address: [address] [place] [address] Performed By: #### 4 024-6, 5643-2, 3297-10 #### [facility] CLIA [id number] [address] [place] [address] [place] Bilirubin [Mass/Vol] 0.3 mg/dL Normal 0.2-1.3 [facility] Comment on above: Order Comment: Speci men Type: BLOOD SPECIMEN [facility] Address: [address] [place] [address] Performed By: #### 4 024-6, 5643-2, 3297-10 #### [facility] CLIA [id number] [address] [place] [address] [place] Calcium [Mass/Vol] 9.4 mg/dL Normal 8.5-10.2 [facility] Comment on above: Order Comment: Speci men Type: BLOOD SPECIMEN [facility] Address: [address] [place] [address] Performed By: #### 4 024-6, 5642-2, 3297-10 #### [facility] CLIA [id number] [address] [place] [address] [place] Chloride [Moles/Vol] 103 mmol/L Normal 97-105 [facility] Comment on above: Order Comment: Speci men Type: BLOOD SPECIMEN [facility] Address: [address] [place] [address] Performed By: #### 4 024-6, 5643-2, 3297-10 #### [facility] CLIA [id number] [address] [place] [address] [place] CO2 [Moles/Vol] 22 mmol/L Normal 22-30 [facility] Comment on above: Order Comment: Speci men Type: BLOOD SPECIMEN [facility] Address: [address] [place] [address] Performed By: #### 4 024-6, 5643-2, 3298-7 #### [facility] CLIA [id number] [address] [place] [address] [place] [facility] Creatinine [Mass/Vol] 0.65 mg/dL Low 0.73-1.22 [facility] Comment on above: Order Comment: Yeyo velasquez Type: BLOOD SPECIMEN [facility] Address: [address] [place] [address] Performed By: #### 4 024-6, 5643-2, 3298-7 #### [facility] CLIA [id number] [address] [place] [address] [facility] Creatinine and Glomerular filtration rate.predicted panel (S/P/Bld) 128 mL/min/1.73m??? Normal >=60 [facility] Comment on above: Order Comment: Yeyo velasquez Type: BLOOD SPECIMEN [facility] Address: [address] [place] [address] Result Comment: Erica mated Glomerular Filtration Rate [...] GFR. Performed By: #### 4 024-6, 5643-2, 32987 #### [facility] CLIA [id number] [address] [place] [address] [facility] Glucose [Mass/Vol] 78 mg/dL Normal 74-99 [facility] Comment on above: Order Comment: Yeyo velasquez Type: BLOOD SPECIMEN [facility] Address: [address] [place] [address] Result Comment: The [employer] (ADA) provides guidance for cutoff [...] Standards of Medical Care in Diabetes 2016, [employer]. Diabetes Care. 2016.39(Suppl 1). Performed By: #### 4 024-6, 5643-2, 3297 #### [facility] CLIA [id number] [address] [place] [address] [place] Potassium [Moles/Vol] 3.6 mmol/L Low 3.7-5.1 [facility] Comment on above: Order Comment: Yeyo velasquez Type: BLOOD SPECIMEN [facility] Address: [address] [place] [address] Performed By: #### 4 024-6, 5643-2, 3297-10 #### [facility] CLIA [id number] [address] [place] [address] [place] Protein [Mass/Vol] 7.1 g/dL Normal 6.3-8.0 [facility] Comment on above: Order Comment: Yeyo velasquez Type: BLOOD SPECIMEN [facility] Address: [address] [place] [address] Performed By: #### 4 024-6, 5643-2, 3297-10 #### [facility] CLIA [id number] [address] [place] [address] [place] Sodium [Moles/Vol] 138 mmol/L Normal 136-144 [facility] Comment on above: Order Comment: Yeyo velasquez Type: BLOOD SPECIMEN [facility] Address: [address] [place] [address] Performed By: #### 4 024-6, 5643-2, 7 #### [facility] CLIA [id number] [address] [place] [address] [place] Urea nitrogen [Mass/Vol] 10 mg/dL Normal 9-24 [facility] Comment on above: Order Comment: Speci men Type: BLOOD SPECIMEN [facility] Address: [place] [address] Performed By: #### 4 024-6, 5643-2, 3298-7 #### [facility] CLIA [id number] [address] [place] [address] [place] HISTORY PHYSICALon HISTORY PHYSICAL HNO ID: [id number] Author: Melissa Stephens MD Service: Hospital Medicine Author Type: Physician Type: HANDP Filed: 12/26/2022 6:39 AM Note Text: DEPARTMENT OF HOSPITAL MEDICINE HISTORY AND PHYSICAL EXAM AUTHOR: Melissa Stephens MD PATIENT NAME: Keke Pemberton : 1990 Primary Care Physician: No primary care provider on file. NIGHT AND WEEKEND COVERAGE: From 7am - 7pm, please call Sound Physician on duty After 7pm, please call cross cover pager #[phone] Subjective CHIEF COMPLAINT / REASON FOR ADMISSION: Ingested foreign body at longterm HPI: This is a 32 year old [...] awake. No new focal neuro deficit. Admission Lab/Imaging/Procedure workup: Most recent labs and imaging results. [...] Dose Rou (more content not included)... Normal [facility] OPERATIVE NOon 12-26-2022 OPERATIVE NO HNO ID: [id number] Author: Angel Braun MD Service: Gastroenterology Author Type: Physician Type: Operative Report Filed: 12/26/2022 12:02 PM Note Text: OPERATIVE/PROCEDURE REPORT LOG ID: [id number] SURGERY/PROCEDURE DATE: 12/26/2022 INCISION/PROCEDURE START TIME: 11:42 AM INCISION CLOSE/PROCEDURE END TIME: 11:53 AM SURGEON(S)/PROCEDURALIS T(S) AND BREAST PULLER(S): Surgeon(s) and Role: * Angel Braun MD - Primary No Additional Staff SURGERY/PROCEDURE(S): Egd with foreign body removal ANESTHESIA: general SURGERY/PROCEDURE DETAILS: post oropharynx normal z line 40 cm ge junction intact fundus franco foreign body noted a pen taken out per os via rat tooth forceps underlying mucosa intact body antrum angularis normal duod bulb d2 was normal PRE-OP/PRE-PROCEDURE DIAGNOSIS: foreign body in stomach POST-OP/POST-PROCEDURE DIAGNOSIS: foreign body a pen removed from stomach underlying mucosal exam normal ESTIMATED BLOOD LOSS: 0 ml SPECIMENS: None IMPLANTABLE DEVICES: NONE DRAINS: None COMPLICATIONS: None CLOSURE TECHNIQUE: Primary PARTICIPATION IN SURGERY/PROCEDURE: I/primary surgeon/proceduralist performed the procedure with assistance. Regular diet preop meds check kub postop for other foreign body that was noted on previous x ray not noted on egd start metamucil serial kubs SIGNATURE: Angel Braun MD PATIENT NAME: Keke Pemberton DATE: December 26, 2022 TIME: 11:58 AM Normal [facility] THERAPY NTon 12-26-2022 THERAPY NT HNO ID: [id number] Author: Yogesh Lincoln PT Service: Physical Therapy Author Type: Physical Therapist Type: Therapy (PT/OT/Speech/Resp) Filed: 12/26/2022 9:00 AM Note Text: PHYSICAL THERAPY MISSED VISIT SERVICE DATE: 12/26/2022 SERVICE TIME: 0859 to 0859 ROOM: [place] [address] Patient not seen due to (no skilled needs). Patient up ambulating independently in room, patient with no acute PT needs. PT will sign off. SIGNATURE: Yogesh Lincoln PT PATIENT NAME: Keke Pemberton DATE: December 26, 2022 TIME: 9:00 AM Normal [facility] THERAPY NT HNO ID: [id number] Author: Brianna Alexis, OTR/L Service: Occupational Therapy Author Type: Occupational Therapist Type: Therapy (PT/OT/Speech/Resp) Filed: 12/26/2022 8:58 AM Note Text: OCCUPATIONAL THERAPY MISSED VISIT SERVICE DATE: 12/26/2022 SERVICE TIME: 0857 to 0857 ROOM: [place] [address] Patient not seen due to (no skilled needs). Per conversation with physical therapist, pt is currently functioning at his baseline with no acute therapy needs. Pt is independent with all self care and functional mobility. OT will sign off at this time. SIGNATURE: Brianna Alexis OTR/L PATIENT NAME: Keke Pemberton DATE: December 26, 2022 TIME: 8:58 AM Normal [facility] Upper GI endoscopyon 023 Upper GI endoscopy [facility] Gastrointestinal Endoscopy Patient Name: Keke Pemberton [...] antiplatelet agents. Procedure Code(s): --- Professional --- 43090, Esophagogastroduodenosc opy, flexible, transoral; with removal of foreign body(s) --- Technical --- 12539, Esophagogastroduodenosc opy, flexible, transoral; with removal of foreign body(s) Diagnosis Code(s): --- Professional --- T18.2XXA, Foreign body in stomach, initial encounter --- Technical --- T18.2XXA, Foreign body in stomach, initial encounter CPT copyright 2020 [employer]. All rights reserved. The codes documented in this report are preliminary and upon physician coder review may be revised to meet current compliance requirements. Attending Participation: I personally performed the entire procedure. Scope In: 11:41:45 AM Scope Out: 11:48:00 AM MD Angel Mcfarland MD 12/26/2022 5:28:50 PM This report has been signed electronically by Angel Braun MD Number of Addenda: 0 Note Initiated On: 12/26/2022 11:08 AM Normal [facility] XR ABDOMEN 1V SUPINEon 12-26 XR ABDOMEN 1V SUPINE * * *Final Report* * * DATE OF EXAM: Dec 26 2022 12:12PM [facility] 5289 - XR ABDOMEN 1V SUPINE / [...] today. Bowel obstruction cannot be entirely excluded. Miner Pick: HEAVENLY Transcribe Date/Time: Dec 26 2022 12:36P Dictated by : KEITH DUNLAP MD This examination was interpreted and the report reviewed and electronically signed by: KEITH DUNLAP MD on Dec 26 2022 12:44PM EST [id number] Normal [facility] ALLIED HEALTHon 12-25-2022 ALLIED HEALTH HNO ID: [id number] Author: Claudia Hylton RT(R) Service: Radiology Author [...] PERIPHERAL IV DATA: Not applicable SIGNED BY: Claudia Hylton RT(R) December 25, 2022 4:[address] [facility] CBC W Auto Differential pane l (Bld)on 12-25-2022 Basophils (Bld) [#/Vol] 0.04 10*3/uL Normal <0.[address] [facility] Comment on above: Order Comment: Speci men Type: BLOOD SPECIMENOrdering Facility: [facility] Address: [address] [place] [address] Performed By: #### 5 7021-8 ####MARK LABORATORYCLIA [id number] [address] STATES [facility] Basophils/100 WBC (Bld) 0.4 % Normal [facility] Comment on above: Order Comment: Speci men Type: BLOOD SPECIMENOrdering Facility: [facility] Address: [address] [place] [address] Performed By: #### 5 7021-8 ####MARK LABORATORYCLIA [id number] [place] [address] [place] Differential cell count method Nom (Bld) Auto Normal [facility] Comment on above: Order Comment: Speci men Type: BLOOD SPECIMENOrdering Facility: [facility] Address: [address] [place] [address] Performed By: #### 5 7021-8 ####MARK LABORATORYCLIA [id number] [place] [address] [place] Eosinophils (Bld) [#/Vol] 0.06 10*3/uL Normal <0.[address] [facility] Comment on above: Order Comment: Speci men Type: BLOOD SPECIMENOrdering Facility: [facility] Address: [address] [place] [address] Performed By: #### 5 7021-8 ####MARK LABORATORYCLIA [id number] [place] [address] [place] Eosinophils/100 WBC (Bld) 0.6 % Normal [facility] Comment on above: Order Comment: Speci men Type: BLOOD SPECIMENOrdering Facility: [facility] Address: [address] [place] [address] Performed By: #### 5 7021-8 ####MARK LABORATORYCLIA [id number] [place] [address] [place] Erythrocyte distribution width (RBC) [Ratio] 13.4 % Normal 11.5-15.[address] [facility] Comment on above: Order Comment: Speci men Type: BLOOD SPECIMENOrdering Facility: [facility] Address: [address] [address] Performed By: #### 5 7021-8 ####MARK LABORATORYCLIA [id number] [address] [place] Hematocrit (Bld) [Volume fraction] 40.5 % Normal 39.0-51.[address] [facility] Comment on above: Order Comment: Speci men Type: BLOOD SPECIMENOrdering Facility: [facility] Address: [address] [address] Performed By: #### 5 7021-8 ####MARK LABORATORYCLIA [id number] [place] [address] [place] Hemoglobin (Bld) [Mass/Vol] 13.7 g/dL Normal 13.0-17.[address] [facility] Comment on above: Order Comment: Speci men Type: BLOOD SPECIMENOrdering Facility: [facility] Address: [address] [place] [address] Performed By: #### 5 7021-8 ####MARK LABORATORYCLIA [id number] [place] [address] [place] Immature granulocytes (Bld) [#/Vol] 0.08 10*3/uL Normal <0.[address] [facility] Comment on above: Order Comment: Speci men Type: BLOOD SPECIMENOrdering Facility: [facility] Address: [address] [place] [address] Performed By: #### 5 7021-8 ####MARK LABORATORYCLIA [id number] [address] [place] Immature granulocytes/100 WBC (Bld) 0.8 % Normal [facility] Comment on above: Order Comment: Speci men Type: BLOOD SPECIMENOrdering Facility: [facility] Address: [address] [place] [address] Performed By: #### 5 7021-8 ####MARK LABORATORYCLIA [id number] [address] Lymphocytes (Bld) [#/Vol] 2.59 10*3/uL Normal 1.00-4.[address] [facility] Comment on above: Order Comment: Speci men Type: BLOOD SPECIMENOrdering Facility: [facility] Address: [address] [place] [address] Performed By: #### 5 7021-8 ####MARK LABORATORYCLIA [id number] [address] Lymphocytes/100 WBC (Bld) 27.1 % Normal [facility] Comment on above: Order Comment: Speci men Type: BLOOD SPECIMENOrdering Facility: [facility] Address: [address] [place] [address] Performed By: #### 5 7021-8 ####MARK LABORATORYCLIA [id number] [address] MCH (RBC) [Entitic mass] 29.8 pg Normal 26.0-34.[address] [facility] Comment on above: Order Comment: Speci men Type: BLOOD SPECIMENOrdering Facility: [facility] Address: [address] [place] [address] Performed By: #### 5 7021-8 ####MARK LABORATORYCLIA [id number] [address] MCHC (RBC) [Mass/Vol] 33.8 g/dL Normal 30.5-36.0 [facility] Comment on above: Order Comment: Speci men Type: BLOOD SPECIMENOrdering Facility: [facility] Address: [address] [place] [address] Performed By: #### 5 7021-8 ####MARK LABORATORYCLIA [id number] [address] MCV (RBC) [Entitic vol] 88.2 fL Normal 80.0-100.[address] [facility] Comment on above: Order Comment: Speci men Type: BLOOD SPECIMENOrdering Facility: [facility] Address: [address] [place] [address] Performed By: #### 5 7021-8 ####MARK LABORATORYCLIA [id number] [address] [place] Monocytes (Bld) [#/Vol] 0.94 10*3/uL High <0.[address] [facility] Comment on above: Order Comment: Speci men Type: BLOOD SPECIMENOrdering Facility: [facility] Address: [address] [place] [address] Performed By: #### 5 7021-8 ####MARK LABORATORYCLIA [id number] [address] Monocytes/100 WBC (Bld) 9.8 % Normal [facility] Comment on above: Order Comment: Speci men Type: BLOOD SPECIMENOrdering Facility: [facility] Address: [address] [place] [address] Performed By: #### 5 7021-8 ####MARK LABORATORYCLIA [id number] [address] [place] Neutrophils (Bld) [#/Vol] 5.85 10*3/uL Normal 1.45-7.[address] [facility] Comment on above: Order Comment: Speci men Type: BLOOD SPECIMENOrdering Facility: [facility] Address: [address] [place] [address] Performed By: #### 5 7021-8 ####MARK LABORATORYCLIA [id number] [address] [place] Neutrophils/100 WBC (Bld) 61.3 % Normal [facility] Comment on above: Order Comment: Speci men Type: BLOOD SPECIMENOrdering Facility: [facility] Address: [address] [place] [address] Performed By: #### 5 7021-8 ####MARK LABORATORYCLIA [id number] [address] [place] Nucleated RBC (Bld) [#/Vol] 10*3/uL Normal <0.[address] [facility] Comment on above: Order Comment: Speci men Type: BLOOD SPECIMENOrdering Facility: [facility] Address: [address] [address] Performed By: #### 5 7021-8 ####MARK LABORATORYCLIA [id number] [address] [place] Nucleated RBC/100 WBC (Bld) [Ratio] 0.0 /[address] [facility] Comment on above: Order Comment: Speci men Type: BLOOD SPECIMENOrdering Facility: [facility] Address: [address] [place] [address] Performed By: #### 5 7021-8 ####MARK LABORATORYCLIA [id number] [address] [place] Platelet mean volume (Bld) [Entitic vol] 8.8 fL Low 9.0-12.[address] [facility] Comment on above: Order Comment: Speci men Type: BLOOD SPECIMENOrdering Facility: [facility] Address: [address] [address] Performed By: #### 5 7021-8 ####MARK LABORATORYCLIA [id number] [address] [place] Platelets (Bld) [#/Vol] 402 10*3/uL High 150-[address] [facility] Comment on above: Order Comment: Speci men Type: BLOOD SPECIMENOrdering Facility: [facility] Address: [address] [address] Performed By: #### 5 7021-8 ####MARK LABORATORYCLIA [id number] [place] [address] [place] RBC (Bld) [#/Vol] 4.59 10*6/uL Normal 4.20-6.00 [facility] Comment on above: Order Comment: Speci men Type: BLOOD SPECIMENOrdering Facility: [facility] Address: [address] [address] Performed By: #### 5 7021-8 ####MARK LABORATORYCLIA [id number] [place] [address] [place] WBC (Bld) [#/Vol] 9.56 10*3/uL Normal 3.70-11.00 [facility] Comment on above: Order Comment: Speci men Type: BLOOD SPECIMENOrdering Facility: [facility] Address: [address] [address] Performed By: #### 5 7021-8 ####MARK LABORATORYCLIA [id number] [address] [facility] Comprehensive metabolic 2000 panelon 12-25-2022 Albumin [Mass/Vol] 4.1 g/dL Normal 3.9-4.[address] [facility] Comment on above: Order Comment: Speci men Type: BLOOD SPECIMENOrdering Facility: [facility] Address: [address] [place] [address] Performed By: #### 2 4323-8 ####MARK LABORATORYCLIA [id number] [address] ALP [Catalytic activity/Vol] 87 U/L Normal 38-[address] [facility] Comment on above: Order Comment: Speci men Type: BLOOD SPECIMENOrdering Facility: [facility] Address: [address] [place] [address] Performed By: #### 2 4323-8 ####MARK LABORATORYCLIA [id number] [address] ALT [Catalytic activity/Vol] 52 U/L Normal 10-[address] [facility] Comment on above: Order Comment: Speci men Type: BLOOD SPECIMENOrdering Facility: [facility] Address: [address] [address] Performed By: #### 2 4323-8 ####MARK LABORATORYCLIA [id number] [address] Anion gap [Moles/Vol] 9 mmol/L Normal 9-18 [facility] Comment on above: Order Comment: Speci men Type: BLOOD SPECIMENOrdering Facility: [facility] Address: [address] [address] Performed By: #### 2 4323-8 ####MARK LABORATORYCLIA [id number] [address] AST [Catalytic activity/Vol] 23 U/L Normal 14-[address] [facility] Comment on above: Order Comment: Speci men Type: BLOOD SPECIMENOrdering Facility: [facility] Address: [address] [place] [address] Performed By: #### 2 4323-8 ####MARK LABORATORYCLIA [id number] [place] [address] [place] Bilirubin [Mass/Vol] 0.2 mg/dL Normal 0.2-1.3 [facility] Comment on above: Order Comment: Speci men Type: BLOOD SPECIMENOrdering Facility: [facility] Address: [address] [place] [address] Performed By: #### 2 4323-8 ####MARK LABORATORYCLIA [id number] [address] [place] Calcium [Mass/Vol] 9.4 mg/dL Normal 8.5-10.[address] [facility] Comment on above: Order Comment: Speci men Type: BLOOD SPECIMENOrdering Facility: [facility] Address: [address] [place] [address] Performed By: #### 2 4323-8 ####MARK LABORATORYCLIA [id number] [address] [place] Chloride [Moles/Vol] 101 mmol/L Normal 97-105 [facility] Comment on above: Order Comment: Speci men Type: BLOOD SPECIMENOrdering Facility: [facility] Address: [address] [address] Performed By: #### 2 4323-8 ####MARK LABORATORYCLIA [id number] [place] [address] [place] CO2 [Moles/Vol] 26 mmol/L Normal 22-[address] [facility] Comment on above: Order Comment: Speci men Type: BLOOD SPECIMENOrdering Facility: [facility] Address: [address] [place] [address] Performed By: #### 2 4323-8 ####BALLWIN LABORATORYCLIA [id number] [place] [address] [place] Creatinine [Mass/Vol] 0.63 mg/dL Low 0.73-1.22 [facility] Comment on above: Order Comment: Yeyo velasquez Type: BLOOD SPECIMENOrdering Facility: [facility] Address: [address] [place] [address] Performed By: #### 2 4323-8 ####BALLWIN LABORATORYCLIA [id number] [address] [place] Creatinine and Glomerular filtration rate.predicted panel (S/P/Bld) 130 mL/min/1.73m??? Normal >=[address] [facility] Comment on above: Order Comment: Yeyo velasquez Type: BLOOD SPECIMENOrdering Facility: [facility] Address: [address] [place] [address] Result Comment: Erica mated Glomerular Filtration Rate [...] Performed By: #### 2 4323-8 ####MARK LABORATORYCLIA [id number] [address] [place] Glucose [Mass/Vol] 98 mg/dL Normal 74-[address] [facility] Comment on above: Order Comment: Yeyo velasquez Type: BLOOD SPECIMENOrdering Facility: [facility] Address: [address] [place] [address] Result Comment: The [employer] [place] [employer] (ADA) provides guidance for cutoff [...] Standards of Medical Care in Diabetes 2016, [employer] [place] [employer]. Diabetes Care. 2016.39(Suppl 1). Performed By: #### 2 4323-8 ####MARK LABORATORYCLIA [id number] [address] Potassium [Moles/Vol] 4.4 mmol/L Normal 3.7-5.1 [facility] Comment on above: Order Comment: Speci men Type: BLOOD SPECIMENOrdering Facility: [facility] Address: [address] [place] [address] Performed By: #### 2 4323-8 ####MARK LABORATORYCLIA [id number] [address] Protein [Mass/Vol] 6.9 g/dL Normal 6.3-8.[address] [facility] Comment on above: Order Comment: Arianei men Type: BLOOD SPECIMENOrdering Facility: [facility] Address: [address] [place] [address] Performed By: #### 2 4323-8 ####MARK LABORATORYCLIA [id number] [address] Sodium [Moles/Vol] 136 mmol/L Normal 136-[address] [facility] Comment on above: Order Comment: Yeyo men Type: BLOOD SPECIMENOrdering Facility: [facility] Address: [address] [place] [address] Performed By: #### 2 4323-8 ####MARK LABORATORYCLIA [id number] [address] STATES [facility] Urea nitrogen [Mass/Vol] 10 mg/dL Normal 9-[address] [facility] Comment on above: Order Comment: Arianei men Type: BLOOD SPECIMENOrdering Facility: [facility] Address: [address] [place] [address] Performed By: #### 2 4323-8 ####MARK LABORATORYCLIA [id number] [address] [place] ED NOTEon 12-25-2022 ED NOTE HNO ID: [id number] Author: Castillo Parikh RN Service: Nursing Author Type: Registered Nurse Type: ED Notes Filed: 12/25/2022 6:33 PM Note Text: Report to DEMARCO Sullivan at [facility]. No questions at this time. [facility] ED NOTE HNO ID: [id number] Author: Nilda Ordoñez RN Service: Nursing Author Type: Registered Nurse Type: ED Notes Filed: 12/25/2022 6:27 PM Note Text: PIV ws removed. Pt ambulated out of the ED with MCSO to be transferred to [facility] ED. [facility] ED NOTE HNO ID: [id number] Author: Nilda Ordoñez RN Service: Nursing Author Type: Registered Nurse Type: ED Notes Filed: 12/25/2022 3:09 PM Note Text: Pt denies SI. States that he's not too sure why he did it but he has no thoughts of killing himself [facility] ED NOTE HNO ID: [id number] Author: Nilda Ordoñez RN Service: Nursing Author Type: Registered Nurse Type: ED Notes Filed: 12/25/2022 3:08 PM Note Text: From [facility] longterm. Pt admits to swallowing a razor blade approx 2 hours ago in the longterm. C/O abd pain [facility] ED PROV NOTEon 12-25-2022 ED PROV NOTE HNO ID: [id number] Author: Hillary Etienne PA-C Service: Emergency Medicine Author Type: Physician Senior Animal Trainer Type: ED Provider Notes Filed: 12/25/2022 [...] with a history of ADHD, presents from [facility] for foreign body that he swallowed. He [...] weakness, light-headedness, numbness and headaches. Hematological: Negative. Psychiatric/Behavioral: Negative. Physical Exam Vitals [12/25/22 1505] BP [...] intent such as SI. He is in longterm and this is seemingly behavioral. X-ray shows concerning for a pen and also razor blade as he admits to swallowing the tip of a thick razor today. He is having epigastric pain and had 1 episode of vomiting that he states was blood-tinged. Discussed with (more content not included)... Normal [facility] PT panel Coag (PPP)on 2022 INR Coag (PPP) [Relative time] 1.0 {INR} Normal 0.9-1.[address] [facility] Comment on above: Order Comment: Yeyo velasquez Type: BLOOD SPECIMENOrdering Facility: [facility] Address: [place] [address] Result Comment: Madyson min K Antagonist (VKA) Therapeutic Range: INR 2 to 3 (Target INR of 2.5) Note: For patients treated with VKA drugs, such as warfarin, the [employer] 2012 Guideline recommends [...] to 3.5 (target INR of 3). Thad GH, et al. Chest 2012, 141:7S-47S Christina RA, et al. JAC 2017, 70: 252-289 Performed By: #### 3 4528-0, 75007-2 ####[facility]ALLWIN LABORATORYCLIA [id number] [address] STATES OF [facility] PT Coag (PPP) [Time] 10.3 s Normal 9.7-13.0 [facility] Comment on above: Order Comment: Yeyo velasquez Type: BLOOD SPECIMENOrdering Facility: [facility] Address: [place] [address] Performed By: #### 3 4528-0, 56420-6 ####BALLWIN LABORATORYCLIA [id number] [address] [facility] XR ACUTE ABD SERIES 2V ABD+C [...] of the pelvis 3. No free air [facility] Transcribe Date/Time: Dec 25 2022 4:50P Dictated by : ISAK THOMPSON DO This examination was interpreted and the report reviewed and electronically signed by: ISAK THOMPSON DO on Dec 25 2022 4:55PM EST [id number] Normal [facility] aPTT PPPon 12-25-2022 aPTT Coag (PPP) [Time] 24.5 s Normal 23.0-32.4 [facility] Comment on above: Order Comment: Speci men Type: BLOOD SPECIMENOrdering Facility: [facility] Address: [address] [place] [address] Performed By: #### 3 4528-0, 65799-4 ####BALLWIN LABORATORYCLIA [id number] [place], [place] [address] [place] [address] [facility] ALLIED HEALTHon 12-09-2022 ALLIED HEALTH HNO ID: [id number] Author: Garland David RT(R) Service: Radiology Author [...] PERIPHERAL IV DATA: Not applicable SIGNED BY: Garland David, RT(R) December 09, 2022 6:27 AM Normal [facility] APAP SerPl-mCncon 12-09-2022 Acetaminophen [Mass/Vol] ug/mL Low 10-30 [facility] Comment on above: Order Comment: Yeyo velasquez Type: BLOOD SPECIMEN [facility] Address: [address] [place] [address] Result Comment: Toxi c > 150 ug/mL 4 hours post ingestion The Uday Trent nomogram can be used to estimate the probability of hepatotoxicity via the relationship of plasma acetaminophen concentration to the post ingestion interval. (Lizy. Pediatrics. 1975. 55:871 to 876 and Uday et al. Arch Jewel Lathe Operator Med. 1981. 141:380 to 385). Reference ranges and high/low indicator flags are provided as general guidelines only. The treating physician must determine appropriate target levels/dosing based on the specific clinical situation. Performed By: #### 4 024-6, 5643-2, 3298-7 #### [facility] CLIA [id number] [address] [place], [place] [id number] [place] Basic metabolic 2000 panelon 12-09-2022 Anion gap [Moles/Vol] 9 mmol/L Normal 9-18 [facility] Comment on above: Order Comment: Yeyo velasquez Type: BLOOD SPECIMEN [facility] Address: [address] [place], [place] [address] Performed By: #### 2 4321-2 #### [facility] CLIA [id number] [address] [place] Calcium [Mass/Vol] 9.0 mg/dL Normal 8.5-10.2 [facility] Comment on above: Order Comment: Speci men Type: BLOOD SPECIMEN [facility] Address: [address] [place] [address] Performed By: #### 2 4321-2 #### [facility] CLIA [id number] [address] [place] Chloride [Moles/Vol] 105 mmol/L Normal 97-105 [facility] Comment on above: Order Comment: Speci men Type: BLOOD SPECIMEN [facility] Address: [address] [place] [address] Performed By: #### 2 4321-2 #### [facility] CLIA [id number] [address] [place] CO2 [Moles/Vol] 29 mmol/L Normal 22-30 [facility] Comment on above: Order Comment: Speci men Type: BLOOD SPECIMEN [facility] Address: [address] [place] [address] Performed By: #### 2 4321-2 #### [facility] CLIA [id number] [address] [place] Creatinine [Mass/Vol] 0.75 mg/dL Normal 0.73-1.22 [facility] Comment on above: Order Comment: Speci men Type: BLOOD SPECIMEN [facility] Address: [address] [place] [address] Performed By: #### 2 4321-2 #### [facility] CLIA [id number] [address] [place] ESTIMATED GLOMERULAR FILTRATION RATE 123 mL/min/1.73m??? Normal >=60 [facility] Comment on above: Order Comment: Speci men Type: BLOOD SPECIMEN [facility] Address: [address] [place] [address] Result Comment: Erica mated Glomerular Filtration Rate [...] GFR. Performed By: #### 2 4321-2 #### [facility] CLIA [id number] [address] [place] [address] [place] Glucose [Mass/Vol] 119 mg/dL High 74-99 [facility] Comment on above: Order Comment: Speci men Type: BLOOD SPECIMEN [facility] Address: [address] [place] [address] Result Comment: The [place] [employer] (ADA) provides guidance for cutoff [...] Standards of Medical Care in Diabetes 2016, [employer] [place] [employer]. Diabetes Care. 2016.39(Suppl 1). Performed By: #### 2 4321-2 #### [facility] CLIA [id number] [address] [place] Potassium [Moles/Vol] 3.8 mmol/L Normal 3.7-5.1 [facility] Comment on above: Order Comment: Speci men Type: BLOOD SPECIMEN [facility] Address: [address] [id number] Performed By: #### 2 4321-2 #### [facility] CLIA [id number] [address] [place] [address] [place] Sodium [Moles/Vol] 143 mmol/L Normal 136-144 [facility] Comment on above: Order Comment: Speci men Type: BLOOD SPECIMEN [facility] Address: [address] [place] [address] Performed By: #### 2 4321-2 #### [facility] CLIA [id number] [address] Urea nitrogen [Mass/Vol] 9 mg/dL Normal 9-24 [facility] Comment on above: Order Comment: Speci men Type: BLOOD SPECIMEN [facility] Address: [address] [place] [address] Performed By: #### 2 4321-2 #### [facility] CLIA [id number] [address] CBC W Auto Differential pane l (Bld)on 12-09-2022 Basophils (Bld) [#/Vol] 0.04 10*3/uL Normal <0.11 [facility] Comment on above: Order Comment: Speci men Type: BLOOD SPECIMEN [facility] Address: [address] [place] [address] Performed By: #### 5 7021-8 #### [facility] CLIA [id number] [address] [place] Basophils/100 WBC (Bld) 0.4 % Normal [facility] Comment on above: Order Comment: Speci men Type: BLOOD SPECIMEN [facility] Address: [address] [place] [address] Performed By: #### 5 7021-8 #### [facility] CLIA [id number] [address] [place] [address] STATES [facility] Differential cell count method Nom (Bld) Auto Normal [facility] Comment on above: Order Comment: Speci men Type: BLOOD SPECIMEN [facility] [facility] Address: [address] [place] [address] Performed By: #### 5 7021-8 #### [facility] CLIA [id number] [address] [place] Eosinophils (Bld) [#/Vol] 0.45 10*3/uL Normal <0.46 [facility] Comment on above: Order Comment: Speci men Type: BLOOD SPECIMEN [facility] Address: [address] [address] Performed By: #### 5 7021-8 #### [facility] CLIA [id number] [address] Eosinophils/100 WBC (Bld) 4.2 % Normal [facility] Comment on above: Order Comment: Speci men Type: BLOOD SPECIMEN [facility] Address: [address] [address] Performed By: #### 5 7021-8 #### [facility] CLIA [id number] [address] [place] Erythrocyte distribution width (RBC) [Ratio] 13.1 % Normal 11.5-15.0 [facility] Comment on above: Order Comment: Speci men Type: BLOOD SPECIMEN [facility] Address: [address] [address] Performed By: #### 5 7021-8 #### [facility] CLIA [id number] [address] STATES OF [facility] Hematocrit (Bld) [Volume fraction] 36.5 % Low 39.0-51.0 [facility] Comment on above: Order Comment: Speci men Type: BLOOD SPECIMEN [facility] Address: [address] [address] Performed By: #### 5 7021-8 #### [facility] CLIA [id number] [address] [place] Hemoglobin (Bld) [Mass/Vol] 12.1 g/dL Low 13.0-17.0 [facility] Comment on above: Order Comment: Speci men Type: BLOOD SPECIMEN [facility] Address: [address] [address] Performed By: #### 5 7021-8 #### [facility] CLIA [id number] [address] Immature granulocytes (Bld) [#/Vol] 0.05 10*3/uL Normal <0.10 [facility] Comment on above: Order Comment: Speci men Type: BLOOD SPECIMEN [facility] Address: [address] [place] [address] Performed By: #### 5 7021-8 #### [facility] CLIA [id number] [address] Immature granulocytes/100 WBC (Bld) 0.5 % Normal [facility] Comment on above: Order Comment: Speci men Type: BLOOD SPECIMEN [facility] Address: [address] [place] [address] Performed By: #### 5 7021-8 #### [facility] CLIA [id number] [address] Lymphocytes (Bld) [#/Vol] 3.57 10*3/uL Normal 1.00-4.00 [facility] Comment on above: Order Comment: Speci men Type: BLOOD SPECIMEN [facility] Address: [address] [place] [address] Performed By: #### 5 7021-8 #### [facility] CLIA [id number] [address] Lymphocytes/100 WBC (Bld) 33.1 % Normal [facility] Comment on above: Order Comment: Speci men Type: BLOOD SPECIMEN [facility] Address: [address] [place] [address] Performed By: #### 5 7021-8 #### [facility] CLIA [id number] [address] MCH (RBC) [Entitic mass] 29.8 pg Normal 26.0-34.0 [facility] Comment on above: Order Comment: Speci men Type: BLOOD SPECIMEN [facility] Address: [address] [place] [address] Performed By: #### 5 7021-8 #### [facility] CLIA [id number] [address] MCHC (RBC) [Mass/Vol] 33.2 g/dL Normal 30.5-36.0 [facility] Comment on above: Order Comment: Speci men Type: BLOOD SPECIMEN [facility] Address: [address] [place] [address] Performed By: #### 5 7021-8 #### [facility] CLIA [id number] [address] MCV (RBC) [Entitic vol] 89.9 fL Normal 80.0-100.0 [facility] Comment on above: Order Comment: Speci men Type: BLOOD SPECIMEN [facility] Address: [address] [place] [address] Performed By: #### 5 7021-8 #### [facility] CLIA [id number] [address] OF [facility] Monocytes (Bld) [#/Vol] 0.96 10*3/uL High <0.87 [facility] Comment on above: Order Comment: Speci men Type: BLOOD SPECIMEN [facility] Address: [address] [place] [address] Performed By: #### 5 7021-8 #### [facility] CLIA [id number] [address] Monocytes/100 WBC (Bld) 8.9 % Normal [facility] Comment on above: Order Comment: Speci men Type: BLOOD SPECIMEN [facility] Address: [address] [place] [address] Performed By: #### 5 7021-8 #### [facility] CLIA [id number] [address] [place] Neutrophils (Bld) [#/Vol] 5.72 10*3/uL Normal 1.45-7.50 [facility] Comment on above: Order Comment: Speci men Type: BLOOD SPECIMEN [facility] Address: [address] [address] Performed By: #### 5 7021-8 #### [facility] CLIA [id number] [address] Neutrophils/100 WBC (Bld) 52.9 % Normal [facility] Comment on above: Order Comment: Speci men Type: BLOOD SPECIMEN [facility] Address: [address] [address] Performed By: #### 5 7021-8 #### [facility] CLIA [id number] [address] [place] Nucleated RBC (Bld) [#/Vol] 10*3/uL Normal <0.01 [facility] Comment on above: Order Comment: Speci men Type: BLOOD SPECIMEN [facility] Address: [address] [address] Performed By: #### 5 7021-8 #### [facility] CLIA [id number] [address] Nucleated RBC/100 WBC (Bld) [Ratio] 0.0 /100 WBC Normal [facility] Comment on above: Order Comment: Speci men Type: BLOOD SPECIMEN [facility] Address: [address] [address] Performed By: #### 5 7021-8 #### [facility] CLIA [id number] [address] [place] Platelet mean volume (Bld) [Entitic vol] 9.4 fL Normal 9.0-12.7 [facility] Comment on above: Order Comment: Speci men Type: BLOOD SPECIMEN [facility] Address: [address] [address] Performed By: #### 5 7021-8 #### [facility] CLIA [id number] [address] [place] Platelets (Bld) [#/Vol] 279 10*3/uL Normal 150-400 [facility] Comment on above: Order Comment: Speci men Type: BLOOD SPECIMEN [facility] Address: [address] [address] Performed By: #### 5 7021-8 #### [facility] CLIA [id number] [address] OF [facility] RBC (Bld) [#/Vol] 4.06 10*6/uL Low 4.20-6.00 [facility] Comment on above: Order Comment: Speci men Type: BLOOD SPECIMEN [facility] Address: [address] [address] Performed By: #### 5 7021-8 #### [facility] CLIA [id number] [address] STATES OF [facility] WBC (Bld) [#/Vol] 10.79 10*3/uL Normal 3.70-11.00 [facility] Comment on above: Order Comment: Speci men Type: BLOOD SPECIMEN [facility] Address: [address] [address] Performed By: #### 5 7021-8 #### [facility] CLIA [id number] [address] OF [place] [address] ABD/PEL WO IVCONon 2022 CT ABD/PEL WO IVCON * * *Final Report* * * DATE OF EXAM: Dec 09 2022 7:07[facility]/PEL WO IVCON [...] days ago to get himself out of longterm. TECHNIQUE: Non-IV contrast imaging of the abdomen [...] air distended rectum. Lymph Nodes: No lymphadenopathy. Mesentery/peritoneum: No free peritoneal air. Retroperitoneum: No mass. Vasculature: No abdominal aortic or iliac artery aneurysm. Pelvis: No mass or ascites. Bones/Soft Tissues: No acute abnormality. Lower thorax: Unremarkable. Logistics System Engineer (topogram) images: No additional findings. IMPRESSION: No radiopaque foreign body appreciated within bowel. Diffuse moderate colonic stool with mild air distended rectum. Miner Pick: PSCB Transcribe Date/Time: Dec 09 2022 7:20A Dictated by : MIGUEL JANE MD This examination was interpreted and the report reviewed and electronically signed by: MIGUEL JANE MD on Dec 09 2022 7:32AM EST [id number] Normal [facility] ED NOTEon 12-09-2022 ED NOTE HNO ID: [id number] Author: Josh Del Real RN Service: Emergency Medicine Author Type: Registered Nurse Type: ED Notes Filed: 12/09/2022 7:08 AM Note Text: Pt back from CT Normal [facility] ED NOTE HNO ID: [id number] Author: Josh Del Real RN Service: Emergency Medicine Author Type: Registered Nurse Type: ED Notes Filed: 12/09/2022 7:08 AM Note Text: Pt to CT in cartt Normal [facility] ED NOTE HNO ID: [id number] Author: Josh Del Real RN Service: Emergency Medicine Author Type: Registered Nurse Type: ED Notes Filed: 12/09/2022 6:55 AM Note Text: CT notified of patient [facility] ED NOTE HNO ID: [id number] Author: Josh Del Real RN Service: Emergency Medicine Author Type: Registered Nurse Type: ED Notes Filed: 12/09/2022 6:45 AM Note Text: PT to XR via cart w transport. Normal [facility] ED NOTE HNO ID: [id number] Author: Josh Del Real RN Service: Emergency Medicine Author Type: Registered Nurse Type: ED Notes Filed: 12/09/2022 6:20 AM Note Text: XR notified of patient [facility] ED NOTE HNO ID: [id number] Author: Lucy Paris RN Service: ? Author Type: Registered Nurse Type: ED Notes Filed: 12/09/2022 5:32 AM Note Text: Bed: [facility] Expected date: Expected time: Means of arrival: Comments: BH only Normal [facility] ED NOTE HNO ID: [id number] Author: Merline Marquez RN Service: ? Author Type: Registered Nurse Type: ED Notes Filed: 12/09/2022 3:48 AM Note Text: Dr Walters in to assess patient, patient and visitor was not in room. RN looked in lobby, room and bathrooms. Pt was not anywhere to be found. Pt marked as eloped, therefore unable to do vitals prior to leaving. [facility] ED PROV NOTEon 12-09-2022 ED PROV NOTE HNO ID: [id number] Author: Amado Mchugh DO Service: ? Author [...] of symptoms. AMADO MCHUGH 12/09/22 0754 Normal [facility] ED PROV NOTE HNO ID: [id number] Author: Amado Mchugh DO Service: Emergency Medicine [...] provided. All questions answered. MARIAN MCGRAW 12/09/22 9024 I performed a history and physical examination of the patient and discussed the management with the resident. I reviewed the resident's note and agree with the documented findings and plan of care. AMADO MCHUGH 12/09/22 1004 Normal [facility] ED PROV NOTE HNO ID: [id number] Author: Prachi Woodward MD Service: Emergency Medicine Author Type: Physician Type: ED Provider Notes Filed: 12/14/2022 3:03 PM Note Text: ED Provider Note Patient Name: Keke Pemberton : 1990 SERVICE DATE: 12/09/22 History Patient presents with: Foreign Body Ingestion: Pt presents to ED via [facility]. Pt ingested razor blades a few days prior in an attempt to get himself out of longterm. He had multiple visits for this where he left AMA including earlier this AM from [facility]. He is continuing to have anxiety about [...] days ago to get himself out of longterm. Patient denies any SI or HI. He [...] for syncope, weakness, light-headedness, numbness and headaches. Psychiatric/Behavioral: Negative for confusion and sleep disturbance. The [...] Patient sta (more content not included)... Normal [facility] ED PROV NOTE HNO ID: [id number] Author: Gabbi Pires MD Service: ? Author Type: Physician Type: ED Provider Notes Filed: 12/09/2022 3:40 AM Note Text: ED Provider Note Patient Name: Keke Pemberton : 1990 SERVICE DATE: 12/09/22 History Patient presents with: Ingestion: Pt ingested razor blades in longterm 2 days ago. Pt was seen here [...] ER without being seen by myself. SIGNATURE: Gabbi MD STAN Pires ALEXANDER 12/09/[address] [facility] EKGon 12-09-2022 Electrocardiogram Ventricular Rate : 1 01 BPM Atrial Rate : 101 BPM P-R Interval : 134 ms QRS Duration : 86 ms Q-T Interval : 330 ms QTC Calculation(Bazett) : 427 ms Calculated P Jefferson : 67 degrees Calculated R Jefferson : 81 degrees Calculated T Jefferson : 54 degrees SINUS TACHYCARDIA OTHERWISE NORMAL ECG WHEN COMPARED WITH ECG OF 04-DEC-2022 13:08, VENT. RATE HAS INCREASED BY 33 BPM NONSPECIFIC T WAVE ABNORMALITY NOW EVIDENT IN INFERIOR LEADS NONSPECIFIC T WAVE ABNORMALITY NO LONGER EVIDENT IN LATERAL LEADS Confirmed by LESA MONTALVO ([id number]) on 12/28/2022 6:18:44 AM NAME : KEKE PEMBERTON PID : [id number] : 1990 Gender : Male Race : [...] IN LATERAL LEADS Confirmed by LESA MONTALVO ([id number]) on 12/28/2022 6:18:44 AM Test Reason : Location : 4 : [facility] Overread By : LESA MONTALVO Edited By : LESA MONTALVO Referred By : , Acquired by : BENITO WELLS [facility] Ethanol SerPl-mCncon 023 Ethanol [Mass/Vol] mg/dL Normal <11 [facility] Comment on above: Order Comment: Yeyo velasquez Type: BLOOD SPECIMEN [facility] Address: [address] [place] [phone] Performed By: #### 4 024-6, 5643-2, 3298-7 #### [facility] CLIA [id number] [address] [place] [address] [place] [facility] Salicylates SerPl-mCncon Salicylates [Mass/Vol] mg/dL Low 3.0-30.0 [facility] Comment on above: Order Comment: Yeyo velasquez Type: BLOOD SPECIMEN [facility] Address: [address], [place] [address] Result Comment: The therapeutic range varies and has been reported to be 3.0 to 10.0 mg/dL for anti pyretic/analgesic conditions and 15.0 to 30.0 mg/dL for anti inflammatory/rheumatic fever conditions. Ranges published by the instrument rn spine. Reference ranges and high/low indicator flags are provided as general guidelines only. The treating physician must determine appropriate target levels/dosing based on the specific clinical situation. Performed By: #### 4 024-6, 5643-2, 3298-7 #### [facility] CLIA [id number] [address] [place] [address] [facility] XR ABDOMEN 1V SUPINEon 12-09 XR ABDOMEN [...] density is not visualized and presumed passed. Miner Pick: PSCB Transcribe Date/Time: Dec 09 2022 6:30A Dictated by : CAROLINA CANCHOLA MD This examination was interpreted and the report reviewed and electronically signed by: CAROLINA CANCHOLA MD on Dec 09 2022 6:34AM EST [id number] Normal [facility] CBC W Auto Differential pane l (Bld)on 12-07-2022 Basophils (Bld) [#/Vol] 0.06 10*3/uL Normal <0.[address] [facility] Comment on above: Order Comment: Speci men Type: BLOOD SPECIMENOrdering Facility: [facility] Address: [address] [address] Performed By: #### 5 7021-8 ####[facility] [id number] [address] [place] Basophils/100 WBC (Bld) 0.6 % Normal [facility] Comment on above: Order Comment: Speci men Type: BLOOD SPECIMENOrdering Facility: [facility] Address: [address] [place] [address] Performed By: #### 5 7021-8 ####[facility] [id number] [address] [place] Differential cell count method Nom (Bld) Auto Normal [facility] Comment on above: Order Comment: Speci men Type: BLOOD SPECIMENOrdering Facility: [facility] Address: [address] [place] [address] Performed By: #### 5 7021-8 ####[facility] [id number] [place] [address] [place] Eosinophils (Bld) [#/Vol] 0.37 10*3/uL Normal <0.[address] [facility] Comment on above: Order Comment: Speci men Type: BLOOD SPECIMENOrdering Facility: [facility] Address: [address] [place] [address] Performed By: #### 5 7021-8 ####[facility] [id number] [address] STATES [facility] Eosinophils/100 WBC (Bld) 3.9 % Normal [facility] Comment on above: Order Comment: Speci men Type: BLOOD SPECIMENOrdering Facility: [facility] Address: [address] [place] [address] Performed By: #### 5 7021-8 ####[facility] [id number] [address] [place] Erythrocyte distribution width (RBC) [Ratio] 13.1 % Normal 11.5-15.[address] [facility] Comment on above: Order Comment: Speci men Type: BLOOD SPECIMENOrdering Facility: [facility] Address: [address] [place], [place] [address] Performed By: #### 5 7021-8 ####[facility] [id number] [address] [place] Hematocrit (Bld) [Volume fraction] 34.3 % Low 39.0-51.[address] [facility] Comment on above: Order Comment: Speci men Type: BLOOD SPECIMENOrdering Facility: [facility] Address: [address] [place] [address] Performed By: #### 5 7021-8 ####[facility] [id number] [place] [address] [place] Hemoglobin (Bld) [Mass/Vol] 12.0 g/dL Low 13.0-17.[address] [facility] Comment on above: Order Comment: Speci men Type: BLOOD SPECIMENOrdering Facility: [facility] Address: [address] [place] [address] Performed By: #### 5 7021-8 ####[facility] [id number] [place] [address] [place] Immature granulocytes (Bld) [#/Vol] 0.03 10*3/uL Normal <0.[address] [facility] Comment on above: Order Comment: Speci men Type: BLOOD SPECIMENOrdering Facility: [facility] Address: [address] [place] [address] Performed By: #### 5 7021-8 ####[facility] [id number] [address] [place] Immature granulocytes/100 WBC (Bld) 0.3 % Normal [facility] Comment on above: Order Comment: Speci men Type: BLOOD SPECIMENOrdering Facility: [facility] Address: [address] [place] [address] Performed By: #### 5 7021-8 ####[facility] [id number] [place] [address] [facility] [place] Lymphocytes (Bld) [#/Vol] 3.45 10*3/uL Normal 1.00-4.[address] [facility] Comment on above: Order Comment: Speci men Type: BLOOD SPECIMENOrdering Facility: [facility] Address: [address] [address] Performed By: #### 5 7021-8 ####[facility]ORY[facility] [id number] [address] Lymphocytes/100 WBC (Bld) 36.2 % Normal [facility] Comment on above: Order Comment: Speci men Type: BLOOD SPECIMENOrdering Facility: [facility] Address: [address] [place] [address] Performed By: #### 5 7021-8 ####[facility] [id number] [address] MCH (RBC) [Entitic mass] 31.0 pg Normal 26.0-34.[address] [facility] Comment on above: Order Comment: Speci men Type: BLOOD SPECIMENOrdering Facility: [facility] Address: [address] [place] [address] Performed By: #### 5 7021-8 ####[facility]ORY[facility] [id number] [address] MCHC (RBC) [Mass/Vol] 35.0 g/dL Normal 30.5-36.0 [facility] Comment on above: Order Comment: Speci men Type: BLOOD SPECIMENOrdering Facility: [facility] Address: [address] [place] [address] Performed By: #### 5 7021-8 ####[facility]ORY[facility] [id number] [address] MCV (RBC) [Entitic vol] 88.6 fL Normal 80.0-100.[address] [facility] Comment on above: Order Comment: Speci men Type: BLOOD SPECIMENOrdering Facility: [facility] Address: [address] [place] [address] Performed By: #### 5 7021-8 ####[facility]ORYCL[facility] [id number] [address] Monocytes (Bld) [#/Vol] 0.92 10*3/uL High <0.[address] [facility] Comment on above: Order Comment: Speci men Type: BLOOD SPECIMENOrdering Facility: [facility] Address: [address] [place] [address] Performed By: #### 5 7021-8 ####[facility]ORYCLIA [id number] [place] [address] [place] Monocytes/100 WBC (Bld) 9.7 % Normal [facility] Comment on above: Order Comment: Speci men Type: BLOOD SPECIMENOrdering Facility: [facility] Address: [address] [place] [address] Performed By: #### 5 7021-8 ####[facility]ORYCLIA [id number] [place] [address] [place] Neutrophils (Bld) [#/Vol] 4.69 10*3/uL Normal 1.45-7.[address] [facility] Comment on above: Order Comment: Speci men Type: BLOOD SPECIMENOrdering Facility: [facility] Address: [address] [place] [address] Performed By: #### 5 7021-8 ####[facility]ORYCLIA [id number] [place] [address] [place] Neutrophils/100 WBC (Bld) 49.3 % Normal [facility] Comment on above: Order Comment: Speci men Type: BLOOD SPECIMENOrdering Facility: [facility] Address: [address] [place] [address] Performed By: #### 5 7021-8 ####[facility]ORYCLIA [id number] [place] [address] [place] Nucleated RBC (Bld) [#/Vol] 10*3/uL Normal <0.[address] [facility] Comment on above: Order Comment: Speci men Type: BLOOD SPECIMENOrdering Facility: [facility] Address: [address] [place] [address] Performed By: #### 5 7021-8 ####[facility]ORYCLIA [id number] [place] [address] [place] Nucleated RBC/100 WBC (Bld) [Ratio] 0.0 /[address] [facility] Comment on above: Order Comment: Speci men Type: BLOOD SPECIMENOrdering Facility: [facility] Address: [address] [place] [address] Performed By: #### 5 7021-8 ####[facility]ORYCLIA [id number] [address] Platelet mean volume (Bld) [Entitic vol] 9.3 fL Normal 9.0-12.[address] [facility] Comment on above: Order Comment: Speci men Type: BLOOD SPECIMENOrdering Facility: [facility] Address: [address] [address] Performed By: #### 5 7021-8 ####[facility]ORYCLIA [id number] [address] [place] Platelets (Bld) [#/Vol] 265 10*3/uL Normal 150-[address] [facility] Comment on above: Order Comment: Speci men Type: BLOOD SPECIMENOrdering Facility: [facility] Address: [address] [place] [address] Performed By: #### 5 7021-8 ####[facility]ORYCLIA [id number] [place] [address] [facility] [place] RBC (Bld) [#/Vol] 3.87 10*6/uL Low 4.20-6.00 [facility] Comment on above: Order Comment: Speci men Type: BLOOD SPECIMENOrdering Facility: [facility] Address: [address] [place] [address] Performed By: #### 5 7021-8 ####[facility]ORYCLIA [id number] [address] [place] WBC (Bld) [#/Vol] 9.52 10*3/uL Normal 3.70-11.00 [facility] Comment on above: Order Comment: Speci men Type: BLOOD SPECIMENOrdering Facility: [facility] Address: [address] [place] [address] Performed By: #### 5 7021-8 ####[facility]ORYCLIA [id number] [address] Comprehensive metabolic 2000 panelon 12-07-2022 Albumin [Mass/Vol] 3.7 g/dL Low 3.9-4.[address] [facility] Comment on above: Order Comment: Speci men Type: BLOOD SPECIMENOrdering Facility: [facility] Address: [address] [place] [address] Performed By: #### 2 4323-8 ####[facility]ORYCLIA [id number] [address] [place] ALP [Catalytic activity/Vol] 91 U/L Normal 38-[address] [facility] Comment on above: Order Comment: Speci men Type: BLOOD SPECIMENOrdering Facility: [facility] Address: [address] [place] [address] Performed By: #### 2 4323-8 ####[facility]ORYCLIA [id number] [address] ALT [Catalytic activity/Vol] 16 U/L Normal 10-[address] [facility] Comment on above: Order Comment: Speci men Type: BLOOD SPECIMENOrdering [facility] Address: [address] [place] [address] Performed By: #### 2 4323-8 ####MARK LABORATORYCLIA [id number] [address] Anion gap [Moles/Vol] 8 mmol/L Low 9-18 [facility] Comment on above: Order Comment: Speci men Type: BLOOD SPECIMENOrdering Facility: [facility] Address: [address] [place] [address] Performed By: #### 2 4323-8 ####MARK LABORATORYCLIA [id number] [address] AST [Catalytic activity/Vol] 18 U/L Normal 14-[address] [facility] Comment on above: Order Comment: Speci men Type: BLOOD SPECIMENOrdering Facility: [facility] Address: [address] [place] [address] Performed By: #### 2 4323-8 ####MARK LABORATORYCLIA [id number] [address] [place] Bilirubin [Mass/Vol] 0.2 mg/dL Normal 0.2-1.3 [facility] Comment on above: Order Comment: Speci men Type: BLOOD SPECIMENOrdering Facility: [facility] Address: [address] [place] [address] Performed By: #### 2 4323-8 ####MARK LABORATORYCLIA [id number] [place] [address] [place] Calcium [Mass/Vol] 8.7 mg/dL Normal 8.5-10.[address] [facility] Comment on above: Order Comment: Speci men Type: BLOOD SPECIMENOrdering Facility: [facility] Address: [address] [place] [address] Performed By: #### 2 432-8 ####MARK LABORATORYCLIA [id number] [address] [place] Chloride [Moles/Vol] 105 mmol/L Normal 97-105 [facility] Comment on above: Order Comment: Speci men Type: BLOOD SPECIMENOrdering Facility: [facility] Address: [address] [place] [address] Performed By: #### 2 4323-8 ####MARK LABORATORYCLIA [id number] [place] [address] [place] CO2 [Moles/Vol] 27 mmol/L Normal 22-[address] [facility] Comment on above: Order Comment: Speci men Type: BLOOD SPECIMENOrdering Facility: [facility] Address: [address] [place] [address] Performed By: #### 2 4323-8 ####MARK LABORATORYCLIA [id number] [place] [address] [place] Creatinine [Mass/Vol] 0.76 mg/dL Normal 0.73-1.22 [facility] Comment on above: Order Comment: Speci men Type: BLOOD SPECIMENOrdering Facility: [facility] Address: [address] [place] [address] Performed By: #### 2 4323-8 ####MARK LABORATORYCLIA [id number] [place] [address] [place] ESTIMATED GLOMERULAR FILTRATION RATE 122 mL/min/1.73m??? Normal >=[address] [facility] Comment on above: Order Comment: Yeyo velasquez Type: BLOOD SPECIMENOrdering Facility: [facility] Address: [address] [id number] Result Comment: Erica mated Glomerular Filtration Rate [...] actual GFR. Performed By: #### 2 4323-8 ####B[facility] LABORATORYCLIA [id number] [place] [id number] [place] Glucose [Mass/Vol] 130 mg/dL High 74-[address] [facility] Comment on above: Order Comment: Yeyo velasquez Type: BLOOD SPECIMENOrdering Facility: [facility] Address: [address] Result Comment: The [place] [employer] (ADA) provides guidance for cutoff [...] Standards of Medical Care in Diabetes 2016, [employer] [place] [employer]. Diabetes Care. 2016.39(Suppl 1). Performed By: #### 2 4323-8 ####BALLWIN LABORATORYCLIA [id number] [place] [id number] [place] Potassium [Moles/Vol] 3.6 mmol/L Low 3.7-5.1 [facility] Comment on above: Order Comment: Yeyo velasquez Type: BLOOD SPECIMENOrdering Facility: [facility] Address: [address] [address] Performed By: #### 2 4323-8 ####MARK LABORATORYCLIA [id number] [address] Protein [Mass/Vol] 5.9 g/dL Low 6.3-8.[address] [facility] Comment on above: Order Comment: Speci men Type: BLOOD SPECIMENOrdering Facility: [facility] Address: [address] [address] Performed By: #### 2 4323-8 ####MARK LABORATORYCLIA [id number] [address] Sodium [Moles/Vol] 140 mmol/L Normal 136-[address] [facility] Comment on above: Order Comment: Speci men Type: BLOOD SPECIMENOrdering Facility: [facility] Address: [address] [address] Performed By: #### 2 4323-8 ####MARK LABORATORYCLIA [id number] [address] Urea nitrogen [Mass/Vol] 12 mg/dL Normal 9-[address] [facility] Comment on above: Order Comment: Speci men Type: BLOOD SPECIMENOrdering Facility: [facility] Address: [address] [place] [address] Performed By: #### 2 4323-8 ####MARK LABORATORYCLIA [id number] [address] ED NOTEon 12-07-2022 ED NOTE HNO ID: [id number] Author: Marisela Sim APRN.ROLL TENSION TESTER Service: ? Author Type: Nurse Practitioner Type: [...] set of final signs prior to departure. Normal [facility] ED NOTE HNO ID: [id number] Author: Mairsela Sim APRN.ROLL TENSION TESTER Service: ? Author Type: Nurse Practitioner Type: ED Notes Filed: 12/07/2022 4:39 PM Note Text: RN called to pts room. Pt expresses desire to leave. RN discussed that pt would be leaving AMA and explained what tests we are still waiting for and the reason they are ordered. Pt insists he still wants to leave. updated [facility] ED PROV NOTEon 12-07-2022 ED PROV NOTE HNO ID: [id number] Author: Junior Haywood DO Service: Emergency Medicine Author Type: Physician Type: ED Provider Notes Filed: 12/08/2022 12:49 AM Note Text: ED Provider Note Patient Name: Keke Pemberton : 1990 SERVICE DATE: 12/07/22 History Patient presents with: Ingestion: 1/2 razor blade wrapped in plastic baggy was swallowed on 12/04/22 He was released by [facility] Dizziness: Began 1 hour ago Eye Complaint: Scab was picked from above the left eye, now red and swollen Keke Pemberton Is a 32-year-old male presenting due to concerns after ingesting a half eaten shaving razor. Patient was in longterm when he ate this. He wrapped it and toilet paper and subsequently a garbage bag. He was seen at [facility] and subsequently [facility]. He was evaluated by psychiatry who deemed not to be a suicide attempt as he states he was just trying to get out of longterm. There was plans for colonoscopy for retrieval [...] blades last week. Patient was seen at [facility] by psychiatry who cleared him as this [...] to n (more content not included)... Normal [facility] Gas and Carbon monoxide pane l (BldV)on 12-07-2022 Base excess Calc (BldV) [Moles/Vol] 2 mmol/L Normal 0-[address] [facility] Comment on above: Order Comment: Yeyo velasquez Type: VENOUS BLOOD SPECIMENOrdering Facility: [facility] Address: [address] [address] Performed By: #### 2 4344-4 ####[facility] RESPIRATORYCLIA [id number] [facility] [id number] [place] [address] Carboxyhemoglobin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 Medicine [...] he swallowed 2 razor blades at the [facility] prior to arrival. He is currently here [...] Neurological: Negative for weakness, numbness and headaches. Psychiatric/Behavioral: Negative for agitation, confusion and suicidal ideas. [...] the followin (more content not included)... Normal [facility] Ethanol SerPl-mCncon 023 Ethanol [Mass/Vol] mg/dL Normal <11 [facility] Comment on above: Order Comment: Arianei eva Type: BLOOD SPECIMEN [facility] Address: [address] [place] [address] Performed By: #### 4 024-6, 5643-2, 3298-7 #### [facility] CLIA [id number] [address] [place] [address] [place] FENTANYL SCREEN, QUALITATIVE , URINEon 12-04-2022 fentaNYL Screen Ql (U) Positive Abnormal Negative [facility] Comment on above: Order Comment: Yeyo velasquez Type: BLOOD SPECIMEN [facility] Address: [address] [place] [address] Result Comment: Cuto ff threshold at 5 ng/mL. Performed By: #### 4 024-6, 5643-2, 3298-7 #### [facility] CLIA [id number] [address] [place] [address] [place] HISTORY PHYSICALon 3 HISTORY PHYSICAL HNO ID: [id number] Author: Amy Herzog DO Service: Hospital Medicine Author Type: Physician Type: HANDP Filed: 12/04/2022 8:37 PM Note Text: DEPARTMENT OF HOSPITAL MEDICINE HISTORY AND PHYSICAL EXAM SERVICE DATE: 12/04/2022 SERVICE TIME: 8:28 PM Primary Care Physician: No primary care provider on file. NIGHT AND WEEKEND COVERAGE: From 7am - 7pm, please call Sound After 7pm, please call cross cover pager #[phone] Subjective CHIEF COMPLAINT: Swallowed foreign body HPI: [...] bag twice. GI was consulted from the [place] emergency room and recommended transfer to [facility]. [facility] report [facility] to admit to [facility]. 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 Patient not taking: Reported on 12/04/2022 Facility-Administered Medications: None ALLERGIES No Known Allergies REVIEW [...] GI an (more content not included)... Normal [facility] Lipase SerPl-cCncon 12-05-19 23 Lipase [Catalytic activity/Vol] 44 U/L Normal 16-61 [facility] Comment on above: Order Comment: Yeyo velasquez Type: BLOOD SPECIMENOrdering [facility] Address: [address] [place] [address] Performed By: #### 2 4323-8, 3040-3 ####[facility] [id number] [place] [address] [place] Salicylates SerPl-mCncon Salicylates [Mass/Vol] mg/dL Low 3.0-30.0 [facility] Comment on above: Order Comment: Yeyo velasquez Type: BLOOD SPECIMEN [facility] Address: [address] [place] [address] Result Comment: The therapeutic range varies and has been reported to be 3.0 to 10.0 mg/dL for anti pyretic/analgesic conditions and 15.0 to 30.0 mg/dL for anti inflammatory/rheumatic fever conditions. Ranges published by the instrument rn spine. Reference ranges and high/low indicator flags are provided as general guidelines only. The treating physician must determine appropriate target levels/dosing based on the specific clinical situation. Performed By: #### 4 024-6, 5643-2, 3298-7 #### [facility] CLIA [id number] [address] [id number] [place] TOX SCREEN ROUT URon 023 Amphetamines Confirm (U) [Mass/Vol] Unable to assay. See note in comment. Abnormal Negative [facility] Comment on above: Order Comment: Yeyo velasquez Type: BLOOD SPECIMEN [facility] Address: [address] [place] [address] Result Comment: Cuto ff threshold at 1000 ng/mL. Performed By: #### 4 024-6, 5643-2, 3298-7 #### [facility] CLIA [id number] [address] [place] [address] [facility] BARBITURATES, URINE Unable to assay. See note in comment. Abnormal Negative [facility] Comment on above: Order Comment: Speci men Type: BLOOD SPECIMEN [facility] Address: [address] [address] Result Comment: Cuto ff threshold at 200 ng/mL. Performed By: #### 4 024-6, 5643-2, 3298-7 #### [facility] CLIA [id number] [address] [place] [address] [place] BENZODIAZEPINES, UR Unable to assay. See note in comment. Abnormal Negative [facility] Comment on above: Order Comment: Speci men Type: BLOOD SPECIMEN [facility] Address: [address] [place] [address] Result Comment: Cuto ff threshold at 200 ng/mL. Performed By: #### 4 024-6, 5643-2, 3298-7 #### [facility] CLIA [id number] [address] [place] [address] [place] CANNABINOIDS,URINE Unable to assay. See note in comment. Abnormal Negative [facility] Comment on above: Order Comment: Speci men Type: BLOOD SPECIMEN [facility] Address: [address] [address] Result Comment: Cuto ff threshold at 50 ng/mL. Performed By: #### 4 024-6, 5643-2, 3298-7 #### [facility] CLIA [id number] [address] [place], [place] [address] [place] [address] Cocaine Ql (U) Unable to assay. See note in comment. Abnormal Negative [facility] Comment on above: Order Comment: Speci men Type: BLOOD SPECIMEN [facility] Address: [address] [address] Result Comment: Cuto ff threshold at 300 ng/mL. Performed By: #### 4 024-6, 5643-2, 3298-7 #### [facility] CLIA [id number] [address] [place] [address] [place] Ethanol (U) [Mass/Vol] Normal [facility] Comment on above: Order Comment: Speci men Type: BLOOD SPECIMEN [facility] Address: [address] [place] [address] Performed By: #### 4 024-6, 5643-2, 3298-7 #### [facility] CLIA [id number] [address] [place] [address] [facility] Opiates Screen Ql (U) Unable to assay. S ee note in comment. Abnormal Negative [facility] Comment on above: Order Comment: Speci men Type: BLOOD SPECIMEN [facility] Address: [address] [place] [address] Result Comment: Cuto ff threshold at 300 ng/mL. Performed By: #### 4 024-6, 5643-2, 3298-7 #### [facility] CLIA [id number] [address] [place], [place] [address] [place] [address] [place] oxyCODONE cutoff Screen (U) [Mass/Vol] Negative Normal Negative [facility] Comment on above: Order Comment: Speci men Type: BLOOD SPECIMEN [facility] Address: [address] [place] [address] Result Comment: Cuto ff threshold at 100 ng/mL. Performed By: #### 4 024-6, 5643-2, 3298-7 #### [facility] CLIA [id number] [address] [place] [address] [facility] [place] Phencyclidine Ql (U) Unable to assay. Se e note in comment. Abnormal Negative [facility] Comment on above: Order Comment: Speci men Type: BLOOD SPECIMEN [facility] Address: [address] [place] [address] Result Comment: Cuto ff threshold at 25 ng/mL. Performed By: #### 4 024-6, 5643-2, 3298-7 #### [facility] CLIA [id number] [address] [place] [address] Urinalysis complete panel (U )on 12-04-2022 Bacteria LM.HPF (Urine sed) [#/Area] Few Abnormal None Seen [facility] Comment on above: Order Comment: Speci men Type: URINE SPECIMEN [facility] Address: [address] [place] [address] Performed By: #### 2 4356-8 #### [facility] CLIA [id number] [address] [place] [address] Bilirubin Ql (U) Negative Normal Negative [facility] Comment on above: Order Comment: Speci men Type: URINE SPECIMEN [facility] Address: [address] [place] [address] Performed By: #### 2 4356-8 #### [facility] CLIA [id number] [address] [place] [address] Clarity (Unsp spec) Slightly Cloudy Abnormal Clear [facility] Comment on above: Order Comment: Speci men Type: URINE SPECIMEN [facility] Address: [address] [place] [address] Performed By: #### 2 4356-8 #### [facility] CLIA [id number] [address] [place] [address] Color (U) Yellow Normal Yellow [facility] Comment on above: Order Comment: Speci men Type: URINE SPECIMEN [facility] Address: [address] [place] [address] Performed By: #### 2 4356-8 #### [facility] CLIA [id number] [address] Epithelial cells LM.HPF (Urine sed) [#/Area] Few Normal [facility] Comment on above: Order Comment: Speci men Type: URINE SPECIMEN [facility] Address: [address] [place] [address] Performed By: #### 2 4356-8 #### [facility] CLIA [id number] [address] [place] [address] [facility] [place] Glucose Test strip (U) [Mass/Vol] Negative Normal Negative [facility] Comment on above: Order Comment: Speci men Type: URINE SPECIMEN [facility] Address: [address] [place] [address] Performed By: #### 2 4356-8 #### [facility] CLIA [id number] [address] [place] [address] [place] Hemoglobin Ql (U) Negative Normal Negative [facility] Comment on above: Order Comment: Speci men Type: URINE SPECIMEN [facility] Address: [address] [place] [address] Performed By: #### 2 4356-8 #### [facility] CLIA [id number] [address] [place] [address] [place] Ketones Ql (U) Negative Normal Negative [facility] Comment on above: Order Comment: Speci men Type: URINE SPECIMEN [facility] Address: [address] [place] [address] Performed By: #### 2 4356-8 #### [facility] CLIA [id number] [address] [place] [address] [place] Leukocyte esterase Test strip Ql (U) Negative Normal Negative [facility] Comment on above: Order Comment: Speci men Type: URINE SPECIMEN [facility] Address: [address] [place] [address] Performed By: #### 2 4356-8 #### [facility] CLIA [id number] [address] [place] [address] [place] Nitrite Ql (U) Negative Normal Negative [facility] Comment on above: Order Comment: Speci men Type: URINE SPECIMEN [facility] Address: [address] [place] [address] Performed By: #### 2 4356-8 #### [facility] CLIA [id number] [address] [place] [address] [facility] [place] pH (U) [pH] High 5.0-8.0 [facility] Comment on above: Order Comment: Speci men Type: URINE SPECIMEN [facility] Address: [address] [place] [address] Performed By: #### 2 4356-8 #### [facility] CLIA [id number] [address] [id number] [place] Protein (U) [Mass/Vol] Trace Abnormal Negative [facility] Comment on above: Order Comment: Speci men Type: URINE SPECIMEN [facility] Address: [address] [place] [address] Performed By: #### 2 4356-8 #### [facility] CLIA [id number] [address] [place] [address] [place] RBC LM.HPF (Urine sed) [#/Area] 0-3 /HPF Normal 0-3 /HPF [facility] Comment on above: Order Comment: Speci men Type: URINE SPECIMEN [facility] Address: [address] [place] [address] Performed By: #### 2 4356-8 #### [facility] CLIA [id number] [address] [place], [place] [address] [place] Specific gravity (U) [Rel density] 1.015 Normal 1.005-1.030 [facility] Comment on above: Order Comment: Speci men Type: URINE SPECIMEN [facility] Address: [address] [place] [address] Performed By: #### 2 4356-8 #### [facility] CLIA [id number] [address] [id number] [facility] Urobilinogen Ql (U) 1.0 EU/dL Normal 0.2-1.0 EU/dL [facility] Comment on above: Order Comment: Speci men Type: URINE SPECIMEN [facility]ing Facility: [facility] Address: [place] [address] Performed By: #### 2 4356-8 #### [facility] CLIA [id number] [address] [id number] [facility] WBC LM.HPF (Urine sed) [#/Area] 0-5 /HPF Normal 0-5 /HPF [facility] Comment on above: Order Comment: Speci men Type: URINE SPECIMEN [facility]ing [facility] Address: [place] [address] Performed By: #### 2 4356-8 #### [facility] CLIA [id number] [address] [place] [address] [facility] XR ACUTE ABD SERIES 2V ABD+C [...] No radiographic evidence of acute cardiopulmonary process. Miner Pick: HEAVENLY Transcribe Date/Time: Dec 04 2022 11:14A Dictated by : JOLENE MCGRAW MD This examination was interpreted and the report reviewed and electronically signed by: JOLENE MCGRAW MD on Dec 04 2022 11:19AM EST [id number] [facility] ALLIED HEALTHon 10-08-2022 ALLIED HEALTH HNO ID: [id number] Author: RT Ren(R) Service: Radiology Author Type: [...] RT Ren(R) October 08, 2022 6:[address] [facility] [address] LUMBAR SPINE WO IVCONon 0 10-08-2022 CT LUMBAR SPINE WO IVCON * * *Final Report* * * DATE OF EXAM: Oct 08 2022 6:31PM [facility] [place] 0508 - CT LUMBAR SPINE WO IVCON [...] vertebral body, partially sacralized on the left.. Logistics System Engineer (topogram) images: Unremarkable. Alignment: Alignment is anatomic. [...] vertebral body, partially sacralized on the left.. Miner Pick: PSCB Transcribe Date/Time: Oct 08 2022 6:47P Dictated by : NINA WESTON MD This examination was interpreted and the report reviewed and electronically signed by: NINA WESTON MD on Oct 08 2022 6:55PM EST [id number] [facility] ED NOTEon 10-08-2022 ED NOTE HNO ID: [id number] Author: Quan Coley RN Service: ? Author Type: Registered Nurse Type: ED Notes Filed: 10/08/2022 8:00 PM Note Text: The patient verbalizes understanding of discharge instructions. No additional questions or concerns at this time. Patient Vital signs stable, no acute distress noted. Patient ambulatory out of ED. Prescription(S) x 0 given. [facility] ED NOTE HNO ID: [id number] Author: Quan Coley RN Service: ? 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 He reports slipping on the pavement surface and reports landing directly on his buttocks. He denies any other symptoms. [facility] ED NOTE HNO ID: [id number] Author: Francisco Javier Alexis RN Service: ? Author Type: Registered Nurse Type: ED Notes Filed: 10/08/2022 6:12 PM Note Text: Bed: ED-18 Expected date: 10/08/22 Expected time: Means of arrival: Comments: LST 4 - Fall [facility] ED PROV NOTEon 10-08-2022 ED PROV NOTE HNO ID: [id number] Author: Sunshine Duncan MD Service: Emergency Medicine [...] Neurological: Negative for syncope, light-headedness and headaches. Psychiatric/Behavioral: Negative for agitation, behavioral problems and confusion. [...] Department for (more content not included)... Normal [facility] .Auto Diffon 08-28-2021 Basophil, Absolute 0.10 10 3/mcL Normal 0.00-0.27 [facility] ([place]) Comment on above: Performed By: #### E RDS, GFR, CBC, CK, ANEU, TROPHS, ADIFF, CMP #### [address] [address] Basophils/100 WBC (Bld) 0.6 % Normal 0.0-2.5 [facility] ([place]) Comment on above: Performed By: #### E RDS, GFR, CBC, CK, ANEU, TROPHS, ADIFF, CMP #### [address] [address] Eosinophil, Absolute 0.60 10 3/mcL Normal 0.00-0.65 [facility] ([place]) Comment on above: Performed By: #### E RDS, GFR, CBC, CK, ANEU, TROPHS, ADIFF, CMP #### [address] [address] Eosinophils/100 WBC (Bld) 6.1 % High 0.0-6.0 [facility] ([place]) Comment on above: Performed By: #### E RDS, GFR, CBC, CK, ANEU, TROPHS, ADIFF, CMP #### [address] [address] Lymphocyte, Absolute 2.50 10 3/mcL Normal 0.90-4.32 [facility] ([place]) Comment on above: Performed By: #### E RDS, GFR, CBC, CK, ANEU, TROPHS, ADIFF, CMP #### [address] [address] Lymphocytes/100 WBC (Bld) 23.8 % Normal 20.0-40.0 [facility] ([place]) Comment on above: Performed By: #### E RDS, GFR, CBC, CK, ANEU, TROPHS, ADIFF, CMP #### [address] [address] Monocyte, Absolute 1.00 10 3/mcL Normal 0.09-1.40 [facility] ([place]) Comment on above: Performed By: #### E RDS, GFR, CBC, CK, ANEU, TROPHS, ADIFF, CMP #### [address] [address] Monocytes/100 WBC (Bld) 9.6 % Normal 2.0-13.0 [facility] ([place]) Comment on above: Performed By: #### E RDS, GFR, CBC, CK, ANEU, TROPHS, ADIFF, CMP #### [address] [address] Neutrophils/100 WBC (Bld) 59.9 % Normal 50.0-75.0 [facility] ([place]) Comment on above: Performed By: #### E RDS, GFR, CBC, CK, ANEU, TROPHS, ADIFF, CMP #### [address] [address] .GFRon 08-28-2021 GFR >60 Normal [facility] ([place]) Comment on above: Result Comment: GFR Population [...] CBC, CK, ANEU, TROPHS, ADIFF, CMP #### [address] [address] GFR Non- >60 Normal [facility] ([place]) Comment on above: Result Comment: GFR Population [...] CBC, CK, ANEU, TROPHS, ADIFF, CMP #### [address] [address] .NEUABSon 08-28-2021 Neutrophil, Absolute 6.20 10 3/mcL Normal 2.25-8.10 [facility] ([place]) Comment on above: Performed By: #### E RDS, GFR, CBC, CK, ANEU, TROPHS, ADIFF, CMP #### [address] [address] CBCon 08-28-2021 Erythrocyte distribution width (RBC) [Ratio] 12.9 % Normal 11.5-15.5 [facility] ([place]) Comment on above: Performed By: #### E RDS, GFR, CBC, CK, ANEU, TROPHS, ADIFF, CMP #### [address] [address] Hematocrit (Bld) [Volume fraction] 45.3 % Normal 40.0-52.0 [facility] ([place]) Comment on above: Performed By: #### E RDS, GFR, CBC, CK, ANEU, TROPHS, ADIFF, CMP #### [place] [id number] Hgb 15.4 G/dL Normal 13.0-17.5 [facility] ([place]) Comment on above: Performed By: #### E RDS, GFR, CBC, CK, ANEU, TROPHS, ADIFF, CMP #### [place] [address] MCH (RBC) [Entitic mass] 30.8 pg Normal 27.0-33.0 [facility] ([place]) Comment on above: Performed By: #### E RDS, GFR, CBC, CK, ANEU, TROPHS, ADIFF, CMP #### [place] [address] MCHC 34.0 G/dL Normal 32.0-36.0 [facility] ([place]) Comment on above: Performed By: #### E RDS, GFR, CBC, CK, ANEU, TROPHS, ADIFF, CMP #### [place] [address] MCV (RBC) [Entitic vol] 90.6 fL Normal 81.0-100.0 [facility] ([place]) Comment on above: Performed By: #### E RDS, GFR, CBC, CK, ANEU, TROPHS, ADIFF, CMP #### [place] [address] Platelet 225 10 3/mcL Normal 150-450 [facility] ([place]) Comment on above: Performed By: #### E RDS, GFR, CBC, CK, ANEU, TROPHS, ADIFF, CMP #### [place] [address] Platelet mean volume (Bld) [Entitic vol] 8.1 fL Normal 6.4-10.5 [facility] ([place]) Comment on above: Performed By: #### E RDS, GFR, CBC, CK, ANEU, TROPHS, ADIFF, CMP #### [place] [address] RBC 5.00 10 6/mcL Normal 4.50-6.00 [facility] ([place]) Comment on above: Performed By: #### E RDS, GFR, CBC, CK, ANEU, TROPHS, ADIFF, CMP #### [place] [address] WBC 10.40 10 3/mcL Normal 4.50-10.80 [facility] ([place]) Comment on above: Performed By: #### E RDS, GFR, CBC, CK, ANEU, TROPHS, ADIFF, CMP #### [address] [address] CKon 08-28-2021 CK [Catalytic activity/Vol] 91 U/L Normal 7-185 [facility] ([place]) Comment on above: Performed By: #### E RDS, GFR, CBC, CK, ANEU, TROPHS, ADIFF, CMP #### [address] 08-28-2021 Albumin Level 4.2 G/dL Normal 3.2-4.8 [facility] ([place]) Comment on above: Performed By: #### E RDS, GFR, CBC, CK, ANEU, TROPHS, ADIFF, CMP #### [place] [address] Albumin/Globulin [Mass ratio] 1.5 {ratio} Normal 0.9-1.6 [facility] ([place]) Comment on above: Performed By: #### E RDS, GFR, CBC, CK, ANEU, TROPHS, ADIFF, CMP #### [place] [id number] ALP [Catalytic activity/Vol] 110 U/L Normal 38-126 [facility] ([place]) Comment on above: Performed By: #### E RDS, GFR, CBC, CK, ANEU, TROPHS, ADIFF, CMP #### [place] [id number] ALT [Catalytic activity/Vol] 57 U/L High 12-55 [facility] ([place]) Comment on above: Performed By: #### E RDS, GFR, CBC, CK, ANEU, TROPHS, ADIFF, CMP #### [place] [id number] AST [Catalytic activity/Vol] 27 U/L Normal 8-34 [facility] ([place]) Comment on above: Performed By: #### E RDS, GFR, CBC, CK, ANEU, TROPHS, ADIFF, CMP #### [address] [address] Bili Total 0.80 mg/dL Normal 0.20-1.20 [facility] ([place]) Comment on above: Result Comment: Use of this assay is not recommended for patients undergoing treatment with eltrombopag due to the potential for falsely elevated results. Performed By: #### E RDS, GFR, CBC, CK, ANEU, TROPHS, ADIFF, CMP #### [address] [address] BUN/Creatinine Ratio 11.0 ratio Normal 10.0-22.0 [facility] ([place]) Comment on above: Performed By: #### E RDS, GFR, CBC, CK, ANEU, TROPHS, ADIFF, CMP #### [address] [address] Calcium [Mass/Vol] 9.4 mg/dL Normal 8.7-10.4 [facility] ([place]) Comment on above: Result Comment: No te - New Reference Range in effect 19 Performed By: #### E RDS, GFR, CBC, CK, ANEU, TROPHS, ADIFF, CMP #### [address] [address] Chloride [Moles/Vol] 106 mmol/L Normal 98-110 [facility] ([place]) Comment on above: Performed By: #### E RDS, GFR, CBC, CK, ANEU, TROPHS, ADIFF, CMP #### [address] [address] CO2 [Moles/Vol] 26 mmol/L Normal 22-32 [facility] ([place]) Comment on above: Performed By: #### E RDS, GFR, CBC, CK, ANEU, TROPHS, ADIFF, CMP #### [address] [address] Creatinine [Mass/Vol] 0.73 mg/dL Normal 0.60-1.40 [facility] ([place]) Comment on above: Performed By: #### E RDS, GFR, CBC, CK, ANEU, TROPHS, ADIFF, CMP #### [address] [address] Electrolyte Balance 6.0 mEq/L Normal 4.0-15.0 [facility] ([place]) Comment on above: Performed By: #### E RDS, GFR, CBC, CK, ANEU, TROPHS, ADIFF, CMP #### [address] [address] Globulin 2.8 G/dL Normal 1.5-3.8 [facility] ([place]) Comment on above: Performed By: #### E RDS, GFR, CBC, CK, ANEU, TROPHS, ADIFF, CMP #### [place] [id number] Glucose [Mass/Vol] 99 mg/dL Normal 70-110 [facility] ([place]) Comment on above: Performed By: #### E RDS, GFR, CBC, CK, ANEU, TROPHS, ADIFF, CMP #### [address] [address] Potassium [Moles/Vol] 3.8 mmol/L Normal 3.5-5.0 [facility] ([place]) Comment on above: Performed By: #### E RDS, GFR, CBC, CK, ANEU, TROPHS, ADIFF, CMP #### [address] [address] Sodium [Moles/Vol] 138 mmol/L Normal 136-145 [facility] ([place]) Comment on above: Performed By: #### E RDS, GFR, CBC, CK, ANEU, TROPHS, ADIFF, CMP #### [address] [address] Total Protein 7.0 G/dL Normal 5.7-8.2 [facility] ([place]) Comment on above: Result Comment: No te - New Reference Range in effect 19 Performed By: #### E RDS, GFR, CBC, CK, ANEU, TROPHS, ADIFF, CMP #### [address] [address] Urea nitrogen [Mass/Vol] 8.0 mg/dL Normal 8.0-22.0 [facility] ([place]) Comment on above: Performed By: #### E RDS, GFR, CBC, CK, ANEU, TROPHS, ADIFF, CMP #### [place] [address] CVFLURVon 08-28-2021 Date of Onset [id number] Invalid Interpretation Code [facility] ([place]) Comment on above: Performed By: #### C VFLURV #### [place] [address] Employed in Healthcare No [facility] ([place]) Comment on above: Performed By: #### C VFLURV #### [place] [address] First Test Unknown [facility] ([place]) Comment on above: Performed By: #### C VFLURV #### [place] [address] FLU A PCR Negative Normal Negative [facility] ([place]) Comment on above: Result Comment: [place] s [address] Performed By: #### C VFLURV #### [place] [address] FLU B PCR Negative Normal Negative [facility] ([place]) Comment on above: Result Comment: [place] [id number] Performed By: #### C VFLURV #### [place] [address] Hospitalized No [facility] ([place]) Comment on above: Performed By: #### C VFLURV #### [place] [address] ICU No [facility] ([place]) Comment on above: Performed By: #### C VFLURV #### [place] [address] Not [facility] ([place] Comment on above: Performed By: #### C VFLURV #### [place] [address] Resides in Congregate Care Setting No [facility] ([place]) Comment on above: Performed By: #### C VFLURV #### [place] [phone] RSV PCR Negative Normal Negative [facility] ([place]) Comment on above: Result Comment: [place] s [id number] Performed By: #### C VFLURV #### [place] [phone] SARS-CoV-2 (COVID-19) RNA JEWEL+probe Ql (Unsp spec) Negative Normal Negative [facility] ([place]) Comment on above: Result Comment: [place] [address] This test has been authorized by FDA [...] results. Performed By: #### C VFLURV #### [place] [address] Symptomatic as Defined by CDC No Normal [facility] ([place]) Comment on above: Performed By: #### C VFLURV #### [place] [address] Ida 08-28-2021 Acetaminophen [Mass/Vol] 4.7 ug/mL Low 10.0-20.0 [facility] ([place]) Comment on above: Performed By: #### E RDS, GFR, CBC, CK, ANEU, TROPHS, ADIFF, CMP ####[place] [address] ER Drug Screen (s) Positive Abnormal [facility] ([place]) Comment on above: Performed By: #### E RDS, GFR, CBC, CK, ANEU, TROPHS, ADIFF, CMP ####[place] [address] ER Drug Screen Interp The serum shows evidence of: _ Invalid Interpretation Code [facility] ([place]) Comment on above: Performed By: #### E RDS, GFR, CBC, CK, ANEU, TROPHS, ADIFF, CMP ####[place] [address] ER Serum Drugs Screened: See Below Normal [facility] ([place]) Comment on above: Result Comment: This drug screen is a presumptive screening only. No confirmation will be performed unless requested. Drugs included in the ER serum drug screen are: Threshold Ethanol 10.0 mg/dL Salicylate 2.0 mg/dL Acetaminophen 2.0 mcg/mL Tricyclic Antidepressants 300 ng/mL Testing has been performed FOR MEDICAL PURPOSES ONLY. Performed By: #### E RDS, GFR, CBC, CK, ANEU, TROPHS, ADIFF, CMP ####[place] [address] Ethanol Level <10.0 Normal [facility] ([place]) Comment on above: Performed By: #### E RDS, GFR, CBC, CK, ANEU, TROPHS, ADIFF, CMP ####[place] [address] Salicylate Lvl (ds) <3.0 Low 10.0-25.0 [facility] ([place]) Comment on above: Performed By: #### E RDS, GFR, CBC, CK, ANEU, TROPHS, ADIFF, CMP ####[place] [address] TCA (s) Negative Normal [facility] ([place]) Comment on above: Performed By: #### E RDS, GFR, CBC, CK, ANEU, TROPHS, ADIFF, CMP ####[place] [address] LABORATORYOrdered By: Ela Malloy on 08-28-2021 Date [...] Comment on above: Result Comment: Note s [id number] FLU B PCR Negative 3 (08/28/21 8:34 PM) Invalid Interpretation Code Negative AH Auto Viro/Sero SS Comment on above: Result Comment: [place] [id number] Hospitalized No (08/28/21 8:34 PM) Invalid Interpretation [...] Comment on above: Result Comment: Note s [address] SARS-CoV-2 (COVID-19) RNA JEWEL+probe Ql (Unsp spec) Negative 1 (08/28/21 8:34 PM) Invalid Interpretation Code Negative AH Auto Viro/Sero SS Comment on above: Result Comment: [place] s [address] Symptomatic as Defined by CDC No (08/28/21 8:34 PM) Invalid Interpretation Code AH Auto Viro/Sero SS LABORATORYOrdered By: Pierce calle on 08-28-2021 ER U Drug Screen Negative (08/28/21 8:34 PM) Invalid Interpretation Code Chemistry S ER U Drug Screen Interp Urine shows no evidence of drugs routinely screened. Invalid Interpretation Code AH Chemistry S U ER Drugs Screened: See Below (08/28/21 8:34 PM) Invalid Interpretation Code Chemistry S LABORATORYOrdered By: Aranza Hill on 08-28-2021 Acetaminophen [Mass/Vol] 4.7 ug/mL Invalid Interpretation Code 10.0 - 20.0 mcg/mL AH ADM SS ER Drug Screen (s) Positive *ABN* (08/28/21 8:27 PM) Invalid Interpretation Code Chemistry S ER Drug Screen Interp The serum shows evidence of: _1. acetaminophen. Invalid Interpretation Code Chemistry S ER Serum Drugs Screened: See Below (08/28/21 8:27 PM) Invalid Interpretation Code Chemistry S Ethanol [Mass/Vol] mg/dL Invalid Interpretation Code ADM SS Salicylates [Mass/Vol] mg/dL Invalid Interpretation Code 10.0 - 25.0 mg/dL ADM SS Tricyclic antidepressants Screen Ql Negative Invalid Interpretation Code ADM SS LABORATORYOrdered By: SYSTEM SYSTEM on 08-28-2021 Albumin BCP dye [Mass/Vol] 4.2 [...] Invalid Interpretation Code 8 - 34 U/L AH ADM SS Basophils (Bld) [#/Vol] 0.10 103/mcL Invalid Interpretation Code 0.00 - 0.27 10^3/mcL Remisol SS Basophils/100 WBC (Bld) 0.6 % Invalid Interpretation Code 0.0 - 2.5 % Remisol SS Bilirubin [Mass/Vol] 0.80 mg/dL Invalid Interpretation Code 0.20 - 1.20 mg/dL AH ADM SS Calcium [Mass/Vol] 9.4 mg/dL Invalid Interpretation Code 8.7 - 10.4 mg/dL AH ADM SS Chloride [Moles/Vol] 106 mmol/L Invalid Interpretation Code 98 - 110 mEq/L AH ADM SS CK [Catalytic activity/Vol] 91 U/L [...] ml/min/1.73sqm Invalid Interpretation Code AH ADM SS Globulin 2.8 G/dL Invalid Interpretation Code 1.5 - 3.8 G/dL AH ADM SS Glucose [Mass/Vol] 99 mg/dL Invalid [...] Troponin I High Sensitivity <2.50 Normal 0.00-54.00 [facility] ([place]) Comment on above: Performed By: #### E RDS, GFR, CBC, CK, ANEU, TROPHS, ADIFF, CMP #### [place] [address] U ERDSon 08-28-2021 ER U Drug Screen Negative Normal [facility] ([place]) Comment on above: Performed By: #### U ERDS #### [address] [address] ER U Drug Screen Interp Urine shows no evidence of drugs routinely screened. Invalid Interpretation Code [facility] ([place]) Comment on above: Performed By: #### U ERDS #### [address] [address] U ER Drugs Screened: See Below Normal Replaced by [facility]) Comment on above: Result Comment: This drug [...] ONLY. Performed By: #### U ERDS #### [place] [address] XR ABDOMEN APon 08-28-2021 XR ABDOMEN AP [...] 08/28/2021 9:21:10 PM Ordering Provider: GILBERT Ashby [facility] ([place]) [facility] 08-10-2021 Albumin [Mass/Vol] 3.9 g/dL Normal 3.2-5.0 [facility] Comment on above: Performed By: #### L 500.78380 #### [facility] [address]# [phone] Albumin/Globulin [Mass ratio] 1.3 {ratio} Normal 0.8-2.0 [facility] Comment on above: Performed By: #### L 500.12300 #### [facility] [address] [place] [address] ALK PHOS 126 U/L High 45-117 [facility] Comment on above: Performed By: #### L 500.51145 #### [facility] [address] [place] [address] ALT [Catalytic activity/Vol] 140 U/L High 13-61 [facility] Comment on above: Result Comment: RESU LTS MAY BE FALSELY DEPRESSED AFTER THE ADMINISTRATION OF SULFASALAZINE AND/OR SULFAPYRIDINE. Performed By: #### L 500.81390 #### [facility] [address] [place] [address] AST [Catalytic activity/Vol] 57 U/L High 8-34 [facility] Comment on above: Result Comment: RESU LTS MAY BE FALSELY DEPRESSED AFTER THE ADMINISTRATION OF SULFASALAZINE AND/OR SULFAPYRIDINE. Performed By: #### L 500.00316 #### [facility] [address] [place] [address] BILI DIRECT 0.2 MG/DL Normal 0.00-0.36 [facility] Comment on above: Result Comment: NOTE NEW NORMAL RANGE DUE TO REAGENT CHANGE Performed By: #### L 500.95929 #### [facility] [address] [place] [address] BILI TOTAL 0.40 MG/DL Normal 0.2-1.0 [facility] Comment on above: Performed By: #### L 500.18086 #### [facility] [place] [address] Globulin (S) [Mass/Vol] 3.0 g/dL Normal 2.2-4.2 [facility] Comment on above: Performed By: #### L 500.41060 #### [facility] [address] [place] [address] Protein [Mass/Vol] 6.9 g/dL Normal 6.0-8.5 [facility] Comment on above: Performed By: #### L 500.93579 #### [facility] [address] [place] [address] LIVERon 07-27-2021 Albumin [Mass/Vol] 4.3 g/dL Normal 3.2-5.0 [facility] Comment on above: Performed By: #### L 500.05522 #### [facility] [address] [place] [address] Albumin/Globulin [Mass ratio] 1.5 {ratio} Normal 0.8-2.0 [facility] Comment on above: Performed By: #### L 500.12350 #### [facility] [address] [place], [place] [id number] ALK PHOS 129 U/L High 45-117 [facility] Comment on above: Performed By: #### L 500.56337 #### [facility] [address] [place], [place] [id number] ALT [Catalytic activity/Vol] 137 U/L High 13-61 [facility] Comment on above: Result Comment: RESU LTS MAY BE FALSELY DEPRESSED AFTER THE ADMINISTRATION OF SULFASALAZINE AND/OR SULFAPYRIDINE. Performed By: #### L 500.34505 #### [facility] [address] [place] [address] AST [Catalytic activity/Vol] 48 U/L High 8-34 [facility] Comment on above: Result Comment: RESU LTS MAY BE FALSELY DEPRESSED AFTER THE ADMINISTRATION OF SULFASALAZINE AND/OR SULFAPYRIDINE. Performed By: #### L 500.90780 #### [facility] [address] [place] [address] BILI DIRECT 0.2 MG/DL Normal 0.00-0.36 [facility] Comment on above: Result Comment: NOTE NEW NORMAL RANGE DUE TO REAGENT CHANGE Performed By: #### L 500.65870 #### [facility] [address] [facility] [place] [address] BILI TOTAL 0.60 MG/DL Normal 0.2-1.0 [facility] Comment on above: Performed By: #### L 500.12695 #### [facility] [address] [place] [address] Globulin (S) [Mass/Vol] 2.8 g/dL Normal 2.2-4.2 [facility] Comment on above: Performed By: #### L 500.04226 #### [facility] [address] [place] [address] Protein [Mass/Vol] 7.1 g/dL Normal 6.0-8.5 [facility] Comment on above: Performed By: #### L 500.47541 #### [facility] [place] [address] Patient Letteron 07-24-2020 Patient Letter (Inserted Image. Marlys ble to display) July 24, 2020 KEKE PEMBERTON [address] [place] [phone] Dear KEKE PEMBERTON, I would like to thank you for being a patient in our office. We value all of our patients and strive to provide the best medical care possible in the most comfortable setting. We are concerned when you are unable to keep a scheduled appointment. Please contact our office at [phone] so we can reschedule the appointment for [...] difficult to keep your appointment please call [phone] so we may assist you. Thank you very much for your understanding. Please call us at [phone] should you have any questions. Normal [facility] COMPREHENSIVE METABOLIC PANE Vinicio 05-21-2020 Albumin [Mass/Vol] 4.4 g/dL Normal 3.2-4.8 [facility] Comment on above: Order Comment: Speci men to be collected later? N SPEC INST. 1 COMMENT: 1 Drugs suspected: 1 Comment: 1 Performed By: #### M OP, SERTOX #### [facility] [address] [place] [address] Albumin/Globulin [Mass ratio] 1.6 {ratio} Normal 0.9-2.0 [facility] Comment on above: Order Comment: Speci men to be collected later? N SPEC INST. 1 COMMENT: 1 Drugs suspected: 1 Comment: 1 Performed By: #### M OP, SERTOX #### [facility] [address] [place] [address] ALP [Catalytic activity/Vol] 107 U/L Normal 40-121 [facility] Comment on above: Order Comment: Speci men to be collected later? N SPEC INST. 1 COMMENT: 1 Drugs suspected: 1 Comment: 1 Performed By: #### M OP, SERTOX #### [facility] [facility] [address] [place] [address] ALT/SGPT 80 IU/L High 11-50 [facility] Comment on above: Order Comment: Speci men to be collected later? N SPEC INST. 1 COMMENT: 1 Drugs suspected: 1 Comment: 1 Performed By: #### M OP, SERTOX #### [facility] [address] [place] [address] AST/SGOT 39 IU/L Normal < 39 [facility] Comment on above: Order Comment: Speci men to be collected later? N SPEC INST. 1 COMMENT: 1 Drugs suspected: 1 Comment: 1 Performed By: #### M OP, SERTOX #### [facility] [address] [place] [address] Bilirubin [Mass/Vol] 0.2 mg/dL Normal 0.2-1.2 [facility] Comment on above: Order Comment: Speci men to be collected later? N SPEC INST. 1 COMMENT: 1 Drugs suspected: 1 Comment: 1 Performed By: #### M OP, SERTOX #### [facility] [address] [place] [address] Creatinine [Mass/Vol] 0.8 mg/dL Normal 0.7-1.3 [facility] Comment on above: Order Comment: Speci men to be collected later? N SPEC INST. 1 COMMENT: 1 Drugs suspected: 1 Comment: 1 Performed By: #### M OP, SERTOX #### [facility] [address] [place] [address] GFR/1.73 sq M predicted among non-blacks MDRD (S/P/Bld) [Vol rate/Area] mL/min/{1.73_m2} Normal [facility] Comment on above: Order Comment: Speci men to be collected later? N SPEC INST. 1 COMMENT: 1 Drugs suspected: 1 Comment: 1 Result Comment: TO ESTIMATE GFR FOR AMERICANS MULTIPLY THE RESULT BY 1.21. GFR LESS THAN 60 mL/min/1.73m2: SUGGESTIVE OF CHRONIC KIDNEY DISEASE. GFR LESS THAN 15 mL/min/1.73m2: SUGGESTIVE OF END STAGE RENAL DISEASE. Performed By: #### M OP, SERTOX #### [facility] [address] [place] [address] Globulin (S) [Mass/Vol] 2.7 G/dL Normal [facility] Comment on above: Order Comment: Speci men to be collected later? N SPEC INST. 1 COMMENT: 1 Drugs suspected: 1 Comment: 1 Performed By: #### M OP, SERTOX #### [facility] [address] [place] [address] Glucose [Mass/Vol] 116 mg/dL High 74-106 [facility] Comment on above: Order Comment: Speci men to be collected later? N SPEC INST. 1 COMMENT: 1 Drugs suspected: 1 Comment: 1 Result Comment: NOTE IF THIS IS A FASTING SPECIMEN THE FOLLOWING RANGES APPLY: NORMAL 70 TO 99 mg/dL PREDIABETIC 100 TO 125 mg/dL DIABETIC >= 126 mg/dL Performed By: #### M OP, SERTOX #### [facility] [address] [place] [address] Osmolality [Osmolality] 276 mOSM/kg Normal 275-305 [facility] Comment on above: Order Comment: Speci men to be collected later? N SPEC INST. 1 COMMENT: 1 Drugs suspected: 1 Comment: 1 Performed By: #### M OP, SERTOX #### [facility] [address] [place] [address] Protein [Mass/Vol] 7.1 g/dL Normal 5.7-8.2 [facility] Comment on above: Order Comment: Speci men to be collected later? N SPEC INST. 1 COMMENT: 1 Drugs suspected: 1 Comment: 1 Performed By: #### M OP, SERTOX #### [facility] [address] [place] [address] SGOT/SGPT RATIO 0.5 Normal 0-2 [facility] Comment on above: Order Comment: Speci men to be collected later? N SPEC INST. 1 COMMENT: 1 Drugs suspected: 1 Comment: 1 Performed By: #### M OP, SERTOX #### [facility] [address] [place] [address] Urea nitrogen [Mass/Vol] 8 mg/dL Low 9-23 [facility] Comment on above: Order Comment: Speci men to be collected later? N SPEC INST. 1 COMMENT: 1 Drugs suspected: 1 Comment: 1 Performed By: #### M OP, SERTOX #### [facility] [address] [place] [address] Urea nitrogen/Creatinine [Mass ratio] 10.0 mg/mg Normal 6-20 [facility] Comment on above: Order Comment: Speci men to be collected later? N SPEC INST. 1 COMMENT: 1 Drugs suspected: 1 Comment: 1 Performed By: #### M OP, SERTOX #### [facility] [address] [place] [address] Anion gap [Moles/Vol] 9.4 mmol/L Normal 8-22 [facility] Comment on above: Order Comment: Speci men to be collected later? N SPEC INST. 1 COMMENT: 1 Drugs suspected: 1 Comment: 1 Performed By: #### M OP, SERTOX #### [facility] [address] [place] [address] CO2 [Moles/Vol] 32 mmol/L High 20-31 [facility] Comment on above: Order Comment: Speci men to be collected later? N SPEC INST. 1 COMMENT: 1 Drugs suspected: 1 Comment: 1 Performed By: #### M OP, SERTOX #### [facility] [address] [place] [address] Calcium [Mass/Vol] 9.2 mg/dL Normal 8.7-10.4 [facility] Comment on above: Order Comment: Speci men to be collected later? N SPEC INST. 1 COMMENT: 1 Drugs suspected: 1 Comment: 1 Performed By: #### M OP, SERTOX #### [facility] [address] [place] [address] Chloride [Moles/Vol] 101 mmol/L Normal 99-109 [facility] Comment on above: Order Comment: Speci men to be collected later? N SPEC INST. 1 COMMENT: 1 Drugs suspected: 1 Comment: 1 Performed By: #### M OP, SERTOX #### [facility] [address] [place] [address] Potassium [Moles/Vol] 3.9 mmol/L Normal 3.6-5.1 [facility] Comment on above: Order Comment: Speci men to be collected later? N SPEC INST. 1 COMMENT: 1 Drugs suspected: 1 Comment: 1 Performed By: #### M OP, SERTOX #### [facility] [address] [place] [address] Sodium [Moles/Vol] 138 mmol/L Normal 132-146 [facility] Comment on above: Order Comment: Speci men to be collected later? N SPEC INST. 1 COMMENT: 1 Drugs suspected: 1 Comment: 1 Performed By: #### M OP, SERTOX #### [facility] [address] [place] [address] ER CBC WITH DIFFERENTIALon 0 - ABSOLUTE BASOPHIL COUNT 0 10 3/uL Low 0.02-0.05 [facility] Comment on above: Order Comment: Speci men to be collected later? N SPEC INST. 1 COMMENT: 1 Performed By: #### E RCD #### [facility] [address] [place] [address] ABSOLUTE NEUTROPHIL COUNT 9.6 10 3/uL High 1.8-7.0 [facility] Comment on above: Order Comment: Speci men to be collected later? N SPEC INST. 1 COMMENT: 1 Performed By: #### E RCD #### [facility] [address] [place] [address] Basophils/100 WBC (Bld) 0.4 % Normal 0-1 [facility] Comment on above: Order Comment: Speci men to be collected later? N SPEC INST. 1 COMMENT: 1 Performed By: #### E RCD #### [facility] [address] [place] [address] Eosinophils (Bld) [#/Vol] 0.2 10 3/uL Normal 0.05-0.25 [facility] Comment on above: Order Comment: Speci men to be collected later? N SPEC INST. 1 COMMENT: 1 Performed By: #### E RCD #### [facility] [address] [place] [address] Eosinophils/100 WBC (Bld) 1.9 % Normal 1-4 [facility] Comment on above: Order Comment: Speci men to be collected later? N SPEC INST. 1 COMMENT: 1 Performed By: #### E RCD #### [facility] [address] [place] [address] Hematocrit (Bld) [Volume fraction] 44.5 % Normal 41.0-53.0 [facility] Comment on above: Order Comment: Speci men to be collected later? N SPEC INST. 1 COMMENT: 1 Performed By: #### E RCD #### [facility] [address] [place] [address] Hemoglobin (Bld) [Mass/Vol] 14.7 g/dL Normal 13.5-17.5 [facility] Comment on above: Order Comment: Speci men to be collected later? N SPEC INST. 1 COMMENT: 1 Performed By: #### E RCD #### [facility] [address] [place] [address] Lymphocytes (Bld) [#/Vol] 1.4 10 3/uL Low 1.5-3.0 [facility] Comment on above: Order Comment: Speci men to be collected later? N SPEC INST. 1 COMMENT: 1 Performed By: #### E RCD #### [address] [address] Lymphocytes/100 WBC (Bld) 11.6 % Low 24-44 [facility] Comment on above: Order Comment: Speci men to be collected later? N SPEC INST. 1 COMMENT: 1 Performed By: #### E RCD #### [facility] [address] [place] [address] MCH (RBC) [Entitic mass] 33.0 GM/DL Normal 31.0-37.0 [facility] Comment on above: Order Comment: Speci men to be collected later? N SPEC INST. 1 COMMENT: 1 Performed By: #### E RCD #### [facility] [address] [place] [address] MCV (RBC) [Entitic vol] 89.3 fL Normal 80.0-100.0 [facility] Comment on above: Order Comment: Speci men to be collected later? N SPEC INST. 1 COMMENT: 1 Performed By: #### E RCD #### [facility] [address] [place] [address] MEAN CELL HEMOGLOBIN 29.5 PG Normal 26.0-34.0 [facility] Comment on above: Order Comment: Speci men to be collected later? N SPEC INST. 1 COMMENT: 1 Performed By: #### E RCD #### [facility] [address] [place] [address] Monocytes (Bld) [#/Vol] 0.7 10 3/uL Normal 0.1-1.0 [facility] Comment on above: Order Comment: Speci men to be collected later? N SPEC INST. 1 COMMENT: 1 Performed By: #### E RCD #### [address] [address] Monocytes/100 WBC (Bld) 5.8 % Normal 1-7 [facility] Comment on above: Order Comment: Speci men to be collected later? N SPEC INST. 1 COMMENT: 1 Performed By: #### E RCD #### [address] [address] Neutrophils/100 WBC (Bld) 80.3 % High 36-71 [facility] Comment on above: Order Comment: Speci men to be collected later? N SPEC INST. 1 COMMENT: 1 Performed By: #### E RCD #### [address] [address] Platelet mean volume (Bld) [Entitic vol] 7.1 UM3 Low 7.4-10.4 [facility] Comment on above: Order Comment: Speci men to be collected later? N SPEC INST. 1 COMMENT: 1 Performed By: #### E RCD #### [address] [address] Platelets (Bld) [#/Vol] 279 TH/MM3 Normal 140-440 [facility] Comment on above: Order Comment: Speci men to be collected later? N SPEC INST. 1 COMMENT: 1 Performed By: #### E RCD #### [address] [address] RBC (Bld) [#/Vol] 4.98 MIL/MM3 Normal 4.50-5.90 [facility] Comment on above: Order Comment: Speci men to be collected later? N SPEC INST. 1 COMMENT: 1 Performed By: #### E RCD #### [address] [address] RED CELL DISTRIBUTION WID 13.4 UNITS Normal 11.5-14.5 [facility] Comment on above: Order Comment: Speci men to be collected later? N SPEC INST. 1 COMMENT: 1 Performed By: #### E RCD #### [facility] [address] [place] [address] WBC (Bld) [#/Vol] 11.9 TH/MM3 High 4.5-11.0 [facility] Comment on above: Order Comment: Speci men to be collected later? N SPEC INST. 1 COMMENT: 1 Performed By: #### E RCD #### [facility] [address] [place] [address] ER NOTEon 05-21-2020 ER NOTE [facility] TRIAGE (FriMay 21, 2020 13:25 YA1) TRIAGE NOTES: pt ambulates to triage, pt sts he's addicted to heroin and wants treatment, pt sts last use was couple of days ago, pt reports has been using for 6 months, denies using any other drugs, pt denies other symptoms, nad noted. ([place] May 21, 2020 13:25 YA1) PATIENT: NAME: Keke Pemberton, AGE: 29, GENDER: male, : Fri1990, TIME OF GREET: FriMay 21, 2020 13:21, PREFERRED LANGUAGE: Dutch, KG WEIGHT: 72.57, , , Family MD: PHYSICIAN, NO, MRSA/VRE - VERIFY: No, P/A DRUG SCREEN RQ?: NO, ADVANCED DIRECTIVES: No. ([place] May 21, 2020 13:25 YA1) ADMISSION: URGENCY: MEG LEVEL 4, DEPT: Emergency, BED: WAITING. ([place] May 21, 2020 13:25 YA1) VITAL SIGNS: BP: 137/85, Pulse: 79, Resp: 18, Temp: 97.8, Pain: 0, O2 sat: 100 on (ra), Time: 05/21/2020 13:22. ([place] May 21, 2020 13:22 YA1) COMPLAINT: Pt Sts needs Eval. ([place] May 21, 2020 13:26 YA1) ASSESSMENT: Triage assessment [...] YA1) PROVIDERS: TRIAGE NURSE: Jailene Lomeli R.N. (FriMay 21, 2020 13:25 YA1) KNOWN ALLERGIES NKDA CURRENT MEDICATIONS (FriMay 21, 2020 13:25 YA1) None HPI ALCOHOL [...] (5) - Oriented/conversive, Motor: (6) - Obeys commands/Spontaneous, GCS Name: Keke Pemberton : 1990 M29 MedRec: [id number] AcctNum: [id number] Page 1 of 9 [facility] Total: 15. ROS (FriMay [...] Name: Keke Pemberton : 1990 M29 MedRec: [id number] AcctNum: [id number] Page 2 of 9 [facility] 2020 15:51 TSD2) NURSING [...] Seay Meghan J saw the patient at [place] May 21, 2020 13:34. ([place] May 21, 2020 13:34 MJM4) DOCTOR CHEF: DO Zhou Brian W. saw the patient at [place] May 21, 2020 13:36. (FriMay 21, 2020 13:36 MDBK) TRANSFER: Triage to Emergency Waiting. (FriMay 21, 2020 13:25 YA1) Emergency Waiting to Emergency Department - Pod 1 13. (FriMay 21, 2020 13:25 YA1) Removed from Emergency Emergency Department - Pod 1 13. ([place] May 21, 2020 15:51 TSD2) NURSING PROCEDURE: DISCHARGE NOTE ([place] May 21, 2020 15:50 TSD2) DISCHARGE: Patient discharged to home, ambulating without assistance, family driving, accompanied by //partner, Name: Keke Pemberton : 1990 M29 MedRec: [id number] AcctNum: [id number] Page 3 of 9 [facility] Summary of Care printed/ provided, Transition record given to patient, Discharge instructions given to patient, Simple or moderate discharge teaching performed, Patient treated and evaluated by physician. TIME: IV discontinued with catheter intact. Dressing placed to IV site, No Barriers to Learning, Explained DCI, Handouts given for DCI, Patient Receptive to DCI, Cooperative with DCI. NURSING PROCEDURE: ENT ([place] May 21, 2020 14:09 LWB) PATIENT IDENTIFIER: [...] Hospital ID band on. NURSING PROCEDURE: IV ([place] May 21, 2020 14:40 TSD2) PATIENT IDENITIFIER: [...] at IV site. NURSING PROCEDURE: URINE COLLECTION ([place] May 21, 2020 14:40 TSD2) PATIENT IDENTIFIER: [...] Notes: SW faxed completed precertification form to [facility]. ([place] May 21, 2020 14:09 TB) Notes: SW gave pt contact information for mental health and AoD resources that he can utilize to obtain continued care. Pt confirmed that he is able to contact agencies and schedule intake independently. Information also provides information for walk-in Name: Keke Pemberton : 1990 M29 MedRec: [id number] AcctNum: [id number] Page 4 of 9 [facility] appointments for addiction detox and psychiatric care. Pt reports that he will go to [facility] for a walk-in appointment to engagement in detox treatment. ([place] May 21, 2020 15:44 TBC) ORDERS ([place] May 21, 2020 13:47 MJM4) ER URINALYSIS PROFILE: Ordered by: GAIL Seay Meghan J Ordered for: GAIL Seay Meghan J Status: Active. ER's CBC WITH DIFF: Ordered by: GAIL Seay Meghan J Ordered for: GAIL Seay Meghan J Status: Active. IV 0.9%Na Cl 1000 mL Bolus: Ordered by: GAIL Seay Meghan J Ordered for: GAIL Seay Meghan J Status: Done by: DEMARCO Villasenor, Neris Donald Amy May 21, 2020 14:40. IV Saline Lock: Ordered by: GAIL Seay Meghan J Ordered for: GAIL Seay Meghan J Status: Done by: DEMARCO Villasenor, Neris Donald Amy May 21, 2020 14:40. MULTI-ORGAN PANEL: Ordered [...] GAIL Seay Meghan J, - Entered by: GALI Seay Meghan J - [place] May 21, 2020 13:47, - Quantity: 1, Order Name: ER's CBC WITH DIFF, Status: Active, Time: 13:47 05/21/2020, User: GAIL Seay Meghan J, - Ordered for: GAIL Seay Meghan J, - Entered by: GAIL Seay Meghan J - [place] May 21, 2020 13:47, - Quantity: 1, Order Name: IV 0.9%Na Cl 1000 mL Bolus, Status: Done, Time: 14:40 05/21/2020, User: GAIL Seay Meghan J, - Ordered for: GAIL Seay Meghan J, - Entered by: GAIL Seay Meghan J - [place] May 21, 2020 13:47, - Quantity: 1, Name: Keke Pemberton Karen : 1990 M29 MedRec: [id number] AcctNum: [id number] Page 5 of 9 [facility] Order Name: IV Saline Lock, Status: Done, Time: 14:40 05/21/2020, User: GAIL Seay Meghan J, - Ordered for: GAIL Seay Meghan J, - Entered by: GAIL Seay Meghan J - [place] May 21, 2020 13:47, - Quantity: 1, Order Name: MULTI-ORGAN PANEL, Status: Active, Time: 13:47 05/21/2020, User: GAIL Seay Meghan J, - Ordered for: GAIL Seay Meghan J, - Entered by: GAIL Seay Meghan J - [place] May 21, 2020 13:47, - Quantity: 1, Order Name: SERUM TOXICOLOGY PROFILE, Status: Active, Time: 13:47 05/21/2020, User: GAIL Seay Meghan J, - Ordered for: GAIL Seay Meghan J, - Entered by: GAIL Seay Meghan J - [place] May 21, 2020 13:47, - Quantity: 1, Order Name: [facility], Status: Active, Time: 13:47 05/21/2020, User: GAIL Seay Meghan J, - Ordered for: GAIL Seay Meghan J, - Entered by: GAIL Seay Meghan J - [place] May 21, 2020 13:47, - Quantity: 1, Order Name: URINE DRUG TOX (IN-HOUSE), Status: Active, Time: 13:47 05/21/2020, User: GAIL Seay Meghan J, - Ordered for: GAIL Seay Meghan J, - Entered by: GAIL Seay Meghan J - [place] May 21, 2020 13:47, - Quantity: 1. RESULTS LABORATORY: [facility] NILESH FriMay 21, 2020 14:12, [facility] ANTIGEN PRESUMPTIVE [...] the EUA is, revoked by the FDA. (FriMay 21, 2020 14:41 MJM4) ER CBC WITH DIFFERENTIAL FriMay 21, 2020 14:30, *WHITE BLOOD COUNT 11.9 [...] Name: Keke Pemberton : 1990 M29 MedRec: [id number] AcctNum: [id number] Page 6 of 9 [facility] *LYMPH% 11.6 - L %, Range (24-44), *ABSOLUTE LYMPHOCYTE COUNT 1.4 - L 10, Range (1.5-3.0), MONO% 5.8 %, Range (1-7), ABSOLUTE MONOCYTE COUNT 0.7 10, Range (0.1-1.0), EO% 1.9 %, Range (1-4), ABSOLUTE EOSINOPHIL COUNT 0.2 10, Range (0.05-0.25), BA% 0.4 %, Range (0-1), *ABSOLUTE BASOPHIL COUNT 0 - L 10, Range (0.02-0.05). (Sun May 21, 2020 14:41 MJM4) ER URINALYSIS [place] May 21, 2020 14:41, COLOR YELLOW , [...] (NONE), BACTERIA NONE SEEN /HPF, Range (NONE). ([place] May 21, 2020 15:15 MJM4) SERUM TOXICOLOGY PROFILE [place] May 21, 2020 14:30, *ACETAMINOPHEN (TYLENOL) < 0.1 - L MG/DL, Range (1.0-3.0), --------, THERAPEUTIC RANGE IS 1-2 mg/dL., LEVELS GREATER THAN 15 mg/dL AT 4 HOURS POST INGESTION, ARE POTENTIALLY TOXIC. PLEASE REFER TO DARCI, NOMOGRAM FOR LEVELS FROM 4 TO 24 HOURS POST INGESTION., --------, SALICYLATE < 3.0 MG/DL, Range (< 29.9), , GREATER THAN 30 mg/dL COULD BE TOXIC, , ALCOHOL MEDICAL(ETHANOL SERUM) < 10.0 MG/DL, Range (< 10), SERUM ALCOHOL REFERENCE VALUES , LESS THAN 10 mg/dL IS NEGATIVE, GREATER THAN 300 mg/dL COULD BE TOXIC, 0.0 IS REPORTED WHEN RESULT IS LESS THAN THE SENSITIVITY, OF THE METHOD., FOR MEDICAL USE ONLY , --------. ([place] May 21, 2020 15:15 MJM4) COMPREHENSIVE METABOLIC PANEL [place] May 21, 2020 14:30, *GLUCOSE 116 - H MG/DL, Range (74-106), , NOTE , IF THIS IS A FASTING SPECIMEN THE FOLLOWING RANGES Name: Keke Pemberton : 1990 M29 MedRec: [id number] AcctNum: [id number] Page 7 of 9 [facility] APPLY:, NORMAL 70 TO [...] (20-31), ANION GAP 9.4 , Range (8-22), OSMOLALITY(CALCULATED) 276 mOSM/kg, Range (275-305). ([place] May 21, 2020 15:15 MJM4) STAT TOXICOLOGY URINE [place] May 21, 2020 14:44, CREATININE URINE 90.4 mg/dl, [...] 300), OXYCODONE NEG NG/ML, Range (CUTOFF 300). ([place] May 21, 2020 15:27 MJM4) DIAGNOSIS ([place] May 21, 2020 15:40 MJM4) FINAL: PRIMARY: polysubstance abuse. DISPOSITION PATIENT: Disposition: 01 Home or Self Care, Condition: GOOD. ([place] May 21, 2020 15:40 MJM4) Patient left the department. (FriMay 21, 2020 15:51 TSD2) INSTRUCTION ([place] May 21, 2020 15:40 MJM4) Name: Keke Pemberton : 1990 M29 MedRec: [id number] AcctNum: [id number] Page 8 of 9 [facility] DISCHARGE: SUBSTANCE / DRUG ABUSE. FOLLOWUP: PHYSICIAN, NO FAMILY, . SPECIAL: Return to ER if worse Drink plenty of fluids. Follow up with primary care physician. PRESCRIPTION No recorded prescriptions ADMIN DIGITAL SIGNATURE: GAIL Seay, Winifred Licea ([place] May 21, 2020 15:52 MJM4) DEMARCO Louis, Virginia Coto ([place] May 21, 2020 16:26 SAB8) DO Zhou Brian W. ([facility] May 22, 2020 06:27 MDBK) DEMARCO Villasenor, Neris Donald ([facility] May 25, 2020 07:23 TSD2) Myrtle Hazel (FriMay 30, 2020 15:37 [facility]) PATIENT DATA CHANGE: Complaint: Pt Sts needs Eval. ([place] May 21, 2020 13:26 YA1) Attending changed from (none) to GAIL Bhatia. ([place] May 21, 2020 13:29 MJM4) Doctor Skid [address] Man changed from (none) to Manas Zhou DO. ([place] May 21, 2020 13:36 MDBK) A08 [id number] by Interface, SSN: [id number], Zip Code: [address], , Payment: [facility]. ([place] May 21, 2020 13:37) A08 [id number] by Interface. ([place] May 21, 2020 13:38) A08 [id number] by Interface. ([place] May 21, 2020 13:38) Primary Nurse changed from (none) to Neris Villasenor RN. ([place] May 21, 2020 13:41 TSD2) Skid Road Man changed from (none) to POCT. Malick ([place] May 21, 2020 14:10 LWB) [place]: LWB=DAPHNEY Day Levi W. MDBK=DO Zhou Brian W. MJM4=GAIL Seay, Winifred Walters SAB8=DEMARCO Louis, Vriginia Coto TBC=ColosiMyrtle lopez TSD2=DEMARCO Villasenor, Neris Donald YA1=Artemenfaye RCameronN Jailene Name: Keke Pemberton : 1990 M29 MedRec: [id number] AcctNum: [id number] Page 9 of 9 Normal [facility] ER URINALYSISon 05-21-2020 Bacteria LM.HPF (Urine sed) [#/Area] NONE SEEN Normal [facility] Comment on above: Order Comment: Speci men to be collected later? N SOURCE? CLEAN CATCH URINE Performed By: #### E RU #### [facility] [address] [place] [address] CAST HYALINE 0-5 Normal [facility] Comment on above: Order Comment: Speci men to be collected later? N SOURCE? CLEAN CATCH URINE Performed By: #### E RU #### [facility] [address] [place] [address] WBC (U) [#/Vol] 10-20 Abnormal [facility] Comment on above: Order Comment: Speci men to be collected later? N SOURCE? CLEAN CATCH URINE Performed By: #### E RU #### [facility] [address] [place] [address] BILIRUBIN UA Negative Normal NEGATIVE [facility] Comment on above: Order Comment: Speci men to be collected later? N SOURCE? CLEAN CATCH URINE Performed By: #### E RU #### [facility] [address] [place] [address] BLOOD Negative Normal NEGATIVE [facility] Comment on above: Order Comment: Speci men to be collected later? N SOURCE? CLEAN CATCH URINE Performed By: #### E RU #### [facility] [address] [place] [address] Clarity (U) CLEAR Normal [facility] Comment on above: Order Comment: Speci men to be collected later? N SOURCE? CLEAN CATCH URINE Performed By: #### E RU #### [facility] [address] [place] [address] Color (U) YELLOW Normal [facility] Comment on above: Order Comment: Speci men to be collected later? N SOURCE? CLEAN CATCH URINE Performed By: #### E RU #### [facility] [address] [place] [address] Glucose [Mass/Vol] Negative Normal NEGATIVE [facility] Comment on above: Order Comment: Speci men to be collected later? N SOURCE? CLEAN CATCH URINE Performed By: #### E RU #### [facility] [address] [place] [id number] KETONE Negative Normal NEGATIVE [facility] Comment on above: Order Comment: Speci men to be collected later? N SOURCE? CLEAN CATCH URINE Performed By: #### E RU #### [facility] [facility] [address] [place] [id number] Nitrite Ql (U) Negative Normal NEGATIVE [facility] Comment on above: Order Comment: Speci men to be collected later? N SOURCE? CLEAN CATCH URINE Performed By: #### E RU #### [facility] [address] [place] [address] 23474 PH URINALYSIS 8.5 Abnormal 4.5-8.0 [facility] Comment on above: Order Comment: Speci men to be collected later? N SOURCE? CLEAN CATCH URINE Performed By: #### E RU #### [facility] [address] [place] [address] 13594 Protein (U) [Mass/Vol] Negative Normal NEGATIVE [facility] Comment on above: Order Comment: Speci men to be collected later? N SOURCE? CLEAN CATCH URINE Performed By: #### E RU #### [facility] [address] [place] [address] [id number] Specific gravity (U) [Rel density] 1.018 Normal [facility] Comment on above: Order Comment: Speci men to be collected later? N SOURCE? CLEAN CATCH URINE Performed By: #### E RU #### [facility] [address] [place] [address] 45265 UROBILINOGEN C 0.2 EU/DL Normal 0.2-1.0 [facility] Comment on above: Order Comment: Speci men to be collected later? N SOURCE? CLEAN CATCH URINE Performed By: #### E RU #### [facility] [address] [place] [address] WBC (Bld) [#/Vol] TRACE Normal NEGATIVE [facility] Comment on above: Order Comment: Speci men to be collected later? N SOURCE? CLEAN CATCH URINE Performed By: #### E RU #### [facility] [address] [place] [address] REFLEX CUR PEDIATRIC <24 MON UCC Normal [facility] Comment on above: Order Comment: Speci men to be collected later? N SOURCE? CLEAN CATCH URINE Performed By: #### E RU #### [facility] [address] [place] [address] SERUM TOXICOLOGY PROFILEon 0 1- Acetaminophen [Mass/Vol] < 0.1 Low 1.0-3.0 [facility] Comment on above: Order Comment: Speci [...] Performed By: #### M OP, SERTOX #### [facility] [address] [place] [address] [phone] ALCOHOL MEDICAL(ETHANOL SERUM) < 10.0 Normal < 10 [facility] Comment on above: Order Comment: Speci [...] Performed By: #### M OP, SERTOX #### [facility] [address] [place] [address] 29786 SALICYLATE < 3.0 Normal < 29.9 [facility] Comment on above: Order Comment: Speci men to be collected later? N SPEC INST. 1 COMMENT: 1 Drugs suspected: 1 Comment: 1 Result Comment: GREATER THAN 30 mg/dL COULD BE TOXIC Performed By: #### M OP, SERTOX #### [facility] [address] [place] [address] MARJORIE SARS AG FIAon 05-21-19 21 MARJORIE SARS AG EUA COMMENT COMMENT Normal [facility] Comment on above: Result Comment: This test has not been FDA cleared or approved; this test has been authorized by FDA under an Emergency Use Authorization (EUA). Authorization for use is approved until the public health emergency is terminated or the EUA is revoked by the FDA. Performed By: #### C OVAG #### [facility] [address] [place] [address] MARJORIE SARS AG INTERNAL CONTROL ACCEPTABLE Normal [facility] Comment on above: Performed By: #### C OVAG #### [facility] [address] [place] [address] MARJORIE SARS ANTIGEN Negative Normal NEGATIVE [facility] Comment on above: Result Comment: Nega tive results, from patients with symptom onset beyond five days, should be treated as presumptive and confirmation with a molecular assay is recommended. Performed By: #### C OVAG #### [facility] [address] [place] [address] [phone] STAT TOXICOLOGY URINEon 04-29 AMPHETAMINE Positive Normal 1000 CUTOFF [facility] Comment on above: Order Comment: Speci men to be collected later? N SPEC INST. 1 Performed By: #### T OXUR #### [facility] [address] [place] [address] 49063 BARBITURATES Negative Normal CUTOFF 200 [facility] Comment on above: Order Comment: Speci men to be collected later? N SPEC INST. 1 Performed By: #### T OXUR #### [facility] [address] [place] [address] 49480 Benzodiazepines Ql (U) Negative Normal CUTOFF 200 [facility] Comment on above: Order Comment: Speci men to be collected later? N SPEC INST. 1 Performed By: #### T OXUR #### [facility] [address] [place] [address] [phone] Cannabinoids Screen Ql (U) Positive Normal CUTOFF 50 [facility] Comment on above: Order Comment: Speci men to be collected later? N SPEC INST. 1 Performed By: #### T OXUR #### [facility] [address] [place] [address] 13378 COCAINE METABOLITE Negative Normal CUTOFF 300 [facility] Comment on above: Order Comment: Speci men to be collected later? N SPEC INST. 1 Performed By: #### T OXUR #### [facility] [address] [place] [address] 43966 CREATININE URINE 90.4 mg/dl Normal [facility] Comment on above: Order Comment: Speci men to be collected later? N SPEC INST. 1 Performed By: #### T OXUR #### [facility] [address] [place] [address] Methadone Ql (U) Negative Normal CUTOFF 300 [facility] Comment on above: Order Comment: Speci men to be collected later? N SPEC INST. 1 Performed By: #### T OXUR #### [facility] [address] [place] [address] Opiates Ql (U) Positive Normal CUTOFF 300 [facility] Comment on above: Order Comment: Speci men to be collected later? N SPEC INST. 1 Performed By: #### T OXUR #### [facility] [address] [place] [address] OXYCODONE Negative Normal CUTOFF 300 [facility] Comment on above: Order Comment: Speci men to be collected later? N SPEC INST. 1 Performed By: #### T OXUR #### [facility] [address] [place] [address] Phencyclidine Ql (U) Negative Normal CUTOFF 25 [facility] Comment on above: Order Comment: Speci men to be collected later? N SPEC INST. 1 Performed By: #### T OXUR #### [facility] [address] [place] [address] TOTAL TRICYCLIC Negative Normal CUTOFF 300 [facility] Comment on above: Order Comment: Speci men to be collected later? N SPEC INST. 1 Performed By: #### T OXUR #### [facility] [address] [place] [address] Vital Signs Date Time Vital Sign Value Performing Clinician Facility 02-14-2025 10:25-0400 Body temperature 97.7 [degF] No Primary Care Physician [facility] 02-14-2025 10:25-0400 Diastolic blood pressure 87 mm[Hg] No Primary Care Physician [facility] 02-14-2025 10:25-0400 Heart rate 67 /min No Primary Care Physician [facility] 02-14-2025 10:25-0400 Respiratory rate 16 /min No Primary Care Physician [facility] 02-14-2025 10:25-0400 SaO2% (BldA) [Mass fraction] 100 % No Primary Care Physician [facility] 02-14-2025 10:25-0400 Systolic blood pressure 120 mm[Hg] No Primary Care Physician [facility] 02-14-2025 09:38-0400 Body height 175.26 cm No Primary Care Physician [facility] 02-14-2025 09:38-0400 Body mass index (BMI) [Ratio] 22.6 kg/m2 No Primary Care Physician [facility] 02-14-2025 09:38-0400 Body weight 69.39 kg No Primary Care Physician [facility] 02-13-2025 17:36-0400 Body mass index (BMI) [Ratio] 21.4 kg/m2 No Primary Care Physician [facility] 02-13-2025 17:36-0400 Body temperature 98.2 [degF] No Primary Care Physician [facility] 02-13-2025 17:36-0400 Body weight 65.77 kg No Primary Care Physician [facility] 02-13-2025 17:36-0400 Diastolic blood pressure 69 mm[Hg] No Primary Care Physician [facility] 02-13-2025 17:36-0400 Heart rate 75 /min No Primary Care Physician [facility] 02-13-2025 17:36-0400 Respiratory rate 16 /min No Primary Care Physician [facility] 02-13-2025 17:36-0400 SaO2% (BldA) [Mass fraction] 99 % No Primary Care Physician [facility] 02-13-2025 17:36-0400 Systolic blood pressure 135 mm[Hg] No Primary Care Physician [facility] 02-02-2025 16:52-0400 Body temperature 98.2 [degF] No Primary Care Physician [facility] 02-02-2025 16:52-0400 Diastolic blood pressure 85 mm[Hg] No Primary Care Physician [facility] 02-02-2025 16:52-0400 Heart rate 102 /min No Primary Care Physician [facility] 02-02-2025 16:52-0400 Respiratory rate 18 /min No Primary Care Physician [facility] 02-02-2025 16:52-0400 SaO2% (BldA) [Mass fraction] 99 % No Primary Care Physician [facility] 02-02-2025 16:52-0400 Systolic blood pressure 133 mm[Hg] No Primary Care Physician [facility] 02-02-2025 16:22-0400 Body height 175.26 cm No Primary Care Physician [facility] 02-02-2025 16:22-0400 Body mass index (BMI) [Ratio] 21.5 kg/m2 No Primary Care Physician [facility] 02-02-2025 16:22-0400 Body weight 66.13 kg No Primary Care Physician [facility] 01-26-2025 10:07-0400 Body temperature 98 [degF] No Primary Care Physician [facility] 01-26-2025 10:07-0400 Diastolic blood pressure 82 mm[Hg] No Primary Care Physician [facility] 01-26-2025 10:07-0400 Heart rate 68 /min No Primary Care Physician [facility] 01-26-2025 10:07-0400 Respiratory rate 16 /min No Primary Care Physician [facility] 01-26-2025 10:07-0400 SaO2% (BldA) [Mass fraction] 100 % No Primary Care Physician [facility] 01-26-2025 10:07-0400 Systolic blood pressure 117 mm[Hg] No Primary Care Physician [facility] 01-26-2025 07:46-0400 Body height 175.26 cm No Primary Care Physician [facility] 01-26-2025 07:46-0400 Body mass index (BMI) [Ratio] 21.4 kg/m2 No Primary Care Physician [facility] 01-26-2025 07:46-0400 Body weight 65.77 kg No Primary Care Physician [facility] 01-21-2025 23:46-0400 Body mass index (BMI) [Ratio] 21.9 kg/m2 No Primary Care Physician [facility] 01-21-2025 23:46-0400 Body temperature 97.9 [degF] No Primary Care Physician [facility] 01-21-2025 23:46-0400 Body weight 67.17 kg No Primary Care Physician [facility] 01-21-2025 23:46-0400 Diastolic blood pressure 88 mm[Hg] No Primary Care Physician [facility] 01-21-2025 23:46-0400 Heart rate 65 /min No Primary Care Physician [facility] 01-21-2025 23:46-0400 Respiratory rate 14 /min No Primary Care Physician [facility] 01-21-2025 23:46-0400 SaO2% (BldA) [Mass fraction] 100 % No Primary Care Physician [facility] 01-21-2025 23:46-0400 Systolic blood pressure 132 mm[Hg] No Primary Care Physician [facility] 01-08-2025 15:51-0400 Body temperature 98.8 [degF] No Primary Care Physician [facility] 01-08-2025 15:51-0400 Diastolic blood pressure 86 mm[Hg] No Primary Care Physician [facility] 01-08-2025 15:51-0400 Heart rate 65 /min No Primary Care Physician [facility] 01-08-2025 15:51-0400 Respiratory rate 16 /min No Primary Care Physician [facility] 01-08-2025 15:51-0400 SaO2% (BldA) [Mass fraction] 95 % No Primary Care Physician [facility] 01-08-2025 15:51-0400 Systolic blood pressure 117 mm[Hg] No Primary Care Physician [facility] 01-08-2025 12:58-0400 Body height 175.26 cm No Primary Care Physician [facility] 01-08-2025 12:58-0400 Body mass index (BMI) [Ratio] 22.6 kg/m2 No Primary Care Physician [facility] 01-08-2025 12:58-0400 Body weight 69.65 kg No Primary Care Physician [facility] 12-21-2024 15:35-0400 Body mass index (BMI) [Ratio] 19.28 kg/m2 Rubia Hill APRN.BRUSH HOLDER INSPECTOR Work Phone: [facility] 12-21-2024 15:35-0400 Body temperature 98.1 [degF] Rubia Hill POWER LINE LINEMAN.BRUSH HOLDER INSPECTOR Work Phone: [facility] 12-21-2024 15:35-0400 Body weight 62.7 kg Rubia Hill [employer].BRUSH HOLDER INSPECTOR Work Phone: [facility] 12-21-2024 15:35-0400 Diastolic blood pressure 70 mm[Hg] Rubia Hill POWER LINE LINEM[employer].BRUSH HOLDER INSPECTOR Work Phone: [facility] 12-21-2024 15:35-0400 Heart rate 86 /min Rubia Hill [employer] LINE LINEM[employer].BRUSH HOLDER INSPECTOR Work Phone: [facility] 12-21-2024 15:35-0400 Respiratory rate 16 /min Rubia Hill POWER LINE LINEMAN.BRUSH HOLDER INSPECTOR Work Phone: [facility] 12-21-2024 15:35-0400 SaO2% (BldA) [Mass fraction] 99 % Rubia Hill P[employer] LINE LINEMAN.BRUSH HOLDER INSPECTOR Work Phone: [facility] 12-21-2024 15:35-0400 Systolic blood pressure 110 mm[Hg] Rubia Hill P[employer] LINE LINEMAN.BRUSH HOLDER INSPECTOR Work Phone: [facility] 08-24-2024 16:13-0400 Body height 180.3 cm [facility] Provider Work Phone: [facility] 08-24-2024 16:13-0400 Body mass index (BMI) [Ratio] 22.73 kg/m2 [facility] Provider Work Phone: [facility] 08-24-2024 16:13-0400 Body temperature 98.01 [degF] [facility] Provider Work Phone: [facility] 08-24-2024 16:13-0400 Body weight 73.94 kg [facility] Provider Work Phone: [facility] 08-24-2024 16:13-0400 Heart rate 78 /min [facility] Provider Work Phone: [facility] 08-24-2024 16:13-0400 Respiratory rate 18 /min [facility] Provider Work Phone: [facility] 08-24-2024 16:13-0400 SaO2% (BldA) [Mass fraction] 99 % [facility] Provider Work Phone: [facility] 08-22-2023 20:15-0400 Body temperature 98.6 [degF] Stephy Glover MD Work Phone: [facility] 08-22-2023 20:15-0400 Diastolic blood pressure 80 mm[Hg] Stephy Glover MD Work Phone: [facility] 08-22-2023 20:15-0400 Heart rate 119 /min Stephy Glover MD Work Phone: [facility] 08-22-2023 20:15-0400 Respiratory rate 13 /min Stephy Glover MD Work Phone: [facility] 08-22-2023 20:15-0400 SaO2% (BldA) [Mass fraction] 97 % Stephy Glover MD Work Phone: [facility] 08-22-2023 20:15-0400 Systolic blood pressure 112 mm[Hg] Stephy Glover MD Work Phone: [facility] 08-22-2023 20:07-0400 Body height 180.3 cm Stephy Glover MD Work Phone: [facility] 08-22-2023 20:07-0400 Body mass index (BMI) [Ratio] 20.92 kg/m2 Stephy Glover MD Work Phone: [facility] 08-22-2023 20:07-0400 Body weight 68.04 kg Stephy Glover MD Work Phone: [facility] 09-08-2021 21:41-0400 Body temperature 97.16 [degF] DR RAEGAN CARDONA MD [facility] 09-08-2021 21:41-0400 Diastolic blood pressure 80 mm[Hg] DR RAEGAN CARDONA MD [facility] 09-08-2021 21:41-0400 Heart rate 77 /min DR RAEGAN CARDONA MD [facility] 09-08-2021 21:41-0400 Respiratory rate 18 /min DR RAEGAN CARDONA MD [facility] 09-08-2021 21:41-0400 Systolic blood pressure 133 mm[Hg] DR RAEGAN CARDONA MD [facility] 09-01-2021 22:42-0400 Diastolic blood pressure 57 mm[Hg] Denice Soto MD Work Phone: [facility] 09-01-2021 22:42-0400 Heart rate 73 /min Denice Soto MD Work Phone: [facility] 09-01-2021 22:42-0400 Respiratory rate 18 /min Denice Soto MD Work Phone: [facility] 09-01-2021 22:42-0400 SaO2% (BldA) [Mass fraction] 96 % Denice Soto MD Work Phone: [facility] 09-01-2021 22:42-0400 Systolic blood pressure 100 mm[Hg] Denice Soto MD Work Phone: [facility] 09-01-2021 15:22-0400 Body height 180.3 cm Denice Soto MD Work Phone: [facility] 09-01-2021 15:22-0400 Body mass index (BMI) [Ratio] 23.71 kg/m2 Denice Soto MD Work Phone: [facility] 09-01-2021 15:22-0400 Body temperature 98.2 [degF] Denice Soto MD Work Phone: [facility] 09-01-2021 15:22-0400 Body weight 77.11 kg Denice Soto MD Work Phone: [facility] 08-29-2021 00:30-0400 Body temperature 97.88 [degF] DR GILBERT FOSTER MD [facility] 08-29-2021 00:30-0400 Diastolic blood pressure 69 mm[Hg] DR GILBERT FOSTER MD [facility] 08-29-2021 00:30-0400 Heart rate 72 /min DR GILBERT FOSTER MD [facility] 08-29-2021 00:30-0400 Respiratory rate 16 /min DR GILBERT FOSTER MD [facility] 08-29-2021 00:30-0400 Systolic blood pressure 107 mm[Hg] DR GILBERT FOSTER MD [facility] 08-28-2021 20:09-0400 Body height 180.[address] IGLBERT FOSTER MD [facility] 08-28-2021 20:09-0400 Body temperature 98.06 [degF] DR GILBERT FOSTER MD [facility] 08-28-2021 20:09-0400 Body weight 77.[address] GILBERT FOSTER MD [facility] 08-28-2021 20:09-0400 Diastolic blood pressure 87 mm[Hg] DR GILBERT FOSTER MD [facility] 08-28-2021 20:09-0400 Heart rate 88 /min DR GILBERT FOSTER MD [facility] 08-28-2021 20:09-0400 Respiratory rate 18 /min DR GILBERT FOSTER MD [facility] 08-28-2021 20:09-0400 Systolic blood pressure 128 mm[Hg] DR GILBERT FOSTER MD [facility] Encounters Encounter Date Encounter Type Care Provider Facility Start: 02-14-2025 End: 02-14-2025 Emergency department patient visit Horacio Juarez Facility:[facility] Start: 02-13-2025 End: 02-13-2025 Emergency department patient visit Ed Physician Provider Facility:[facility] Start: 02-02-2025 End: 02-02-2025 Emergency department patient visit No Primary Care Physician -Emergency Department Work Phone: Start: 02-02-2025 End: 02-02-2025 ambulatory QUAN TAYLOR Facility:[facility] Start: 01-26-2025 End: 01-26-2025 Emergency department patient visit No Primary Care Physician -Emergency Department Work Phone: Start: 01-21-2025 End: 01-22-2025 Emergency department patient visit No Primary Care Physician -Emergency Department Work Phone: Start: 01-08-2025 End: 01-08-2025 Emergency department patient visit No Primary Care Physician -Emergency Department Work Phone: Start: 12-22-2024 End: 12-22-2024 Follow-up encounter Mayela Fischer PA Work Phone: [facility] Comment on above: Results Start: 12-22-2024 End: 12-24-2024 Telephone encounter No Pcp (Hist) [facility] Comment on above: Results Start: 12-21-2024 End: 12-21-2024 Patient encounter procedure Rubia Hill POWER LINE LINEMAN.BRUSH HOLDER INSPECTOR Work Phone: [facility] Comment on above: URI, acute (Primary Dx); Exposure to COVID-19 virus; Viral illness; Encounter to obtain excuse from work Start: 12-21-2024 End: 12-21-2024 ambulatory RUBIA HILL Facility:[facility] Start: 08-25-2024 End: 08-25-2024 ambulatory Randee Florez [facility] Start: 08-25-2024 End: 08-25-2024 Follow-up encounter Randee Florez [facility] Comment on above: SPP Hepatology - Fol low-up (HCV+ note) Start: 08-24-2024 End: 08-27-2024 ambulatory UNKNOWN PROVIDER Facility:[facility] Start: 08-24-2024 End: 08-27-2024 Subsequent hospital visit by physician [facility] Intake Provider Work Phone: [facility] Intake Comment on above: Inmate in correction al facility (Primary Dx); Attention deficit hyperactivity disorder (ADHD), unspecified ADHD type; Screening for tuberculosis; Encounter for Hemoccult screening Start: 08-28-2023 Emergency department patient visit [facility] Facility:[facility] Start: 08-22-2023 End: 08-23-2023 Emergency department patient visit STEPHY GLOVER [facility] Start: 08-22-2023 End: 08-22-2023 Subsequent hospital visit by physician [facility] [employer] [facility] Radiology Comment on above: Arrived Start: 08-22-2023 End: 08-22-2023 Emergency department patient visit Stephy Glover MD Work Phone: [facility] ED Comment on above: Chest pain, unspecif ied type (Primary Dx); Opiate use Start: 04-25-2023 End: 04-29-2023 Evaluation and management of inpatient CLARA KARIMI Facility:[facility] Start: 04-24-2023 Emergency department patient visit [facility] Facility:[facility] Start: 04-11-2023 End: 04-11-2023 Emergency department patient visit [facility] Facility:[facility] Start: 04-10-2023 [facility] Start: 01-04-2023 Evaluation and management of inpatient EVAREAL TRIPPS Facility:[facility] Start: 01-03-2023 Emergency department patient visit [facility] Facility:[facility] Start: 12-25-2022 Evaluation and management of inpatient HILLARY ETIENNE Facility:[facility] Start: 12-25-2022 [facility] Start: 12-09-2022 Emergency department patient visit [facility] Facility:[facility] Start: 12-09-2022 [facility] Start: 12-07-2022 Emergency department patient visit GABBI PIRES Facility:[facility] Start: 12-04-2022 Admission to establishment Brittany Watkins [facility] Start: 12-04-2022 End: 12-05-2022 ambulatory Brittany Watkins [facility] Intake Comment on above: Foreign Body Ingesti on Start: 12-04-2022 Emergency department patient visit [facility] Facility:[facility] Start: 10-08-2022 Emergency department patient visit SEA ACEVEDO III Facility:[facility] Start: 09-08-2021 End: 09-08-2021 Emergency department patient visit DR RAEGAN CARDONA MD [facility] Start: 09-01-2021 End: 09-02-2021 Emergency department patient visit DENICE SOTO [facility] Start: 09-01-2021 End: 09-01-2021 Emergency department patient visit Denice Soto MD Work Phone: [facility] Emergency Department Comment on above: Trismus (Primary Dx) ; Anxiety state Start: 08-28-2021 End: 08-29-2021 Emergency department patient visit DR GILBERT FOSTER MD [facility] Start: 08-22-2021 End: 08-22-2021 Subsequent hospital [...] Date Procedure Procedure Detail Performing Clinician Start: 01-26-2025 Plain chest X-ray No [place] Phys[place] Start: 01-26-2025 D-dimer assay, quantitative No Primary Care Physician Comment on above: NORMAL D-Dimer level (<0.50) indicates no DVT or PE. Start: 01-26-2025 Estimated creatinine clearance No Primary Care Physician Start: 01-08-2025 Methadone measuremen t, urine No Primary Care Physician Start: 08-26-2024 Skin test tuberculos is intradermal Delmis Espinoza [employer] Work Phone: Start: 08-26-2024 Drug screen class list a Delmis Espinoza [employer] Work Phone: Start: 08-22-2023 Radiologic exam ches t single view Stephy Glover MD Work Phone: Start: 08-22-2023 Comprehensive metabo lic panel Stephy Glover MD Work Phone: Start: 08-22-2023 Ecg routine ecg w/le ast 12 lds trcg only w/o i&r Stephy Glover MD Work Phone: Start: 09-01-2021 CONSTANT OBSERVATION TO VICTORIANO SOTO None (qualifier value) DR LYDIA FOSTER MD Plan of Treatment Date Care Activity Detail Author Start: 2050 RSV Immunization age d 60 or older (1 - 1-dose 60+ series) RSV Immunization aged 60 or older (1 - 1-dose 60+ series) [facility] Start: 2040 Shingles (RZV) Vacci ne (1 of 2) Shingles (RZV) Vaccine (1 of 2) [facility] Start: 2040 Zoster Vaccines (1 o f 2) Zoster Vaccines (1 of 2) [facility] Start: 12-04-2032 DTaP/Tdap/Td Vaccine s (2 - Td or Tdap) DTaP/Tdap/Td Vaccines (2 - Td or Tdap) [facility] Start: 12-04-2032 Tetanus vaccination Tetanus (T d or Tdap) [facility] Start: 12-04-2032 Urine microalbumin profile [facility] Start: 02-14-2025 [facility] Start: 02-02-2025 [facility] Start: 01-26-2025 [facility] Start: 01-08-2025 [facility] Start: 12-27-2024 Influenza vaccination Influenza Vacc ine (#1) [facility] Start: 12-28-2023 Covid-19 Vaccine ( season) Covid-19 Vaccine ( season) [facility] Start: 12-28-2023 Influenza vaccination [facility] Start: 12-27-2022 COVID-19 Vaccine ( season) COVID-19 Vaccine ( season) [facility] Start: 12-27-2022 Influenza vaccination INFLUENZA (#1) [facility] Start: 04-28-2022 DEPRESSION ASSESSMENT DEPRESSION ASS ESSMENT [facility] Start: 12-27-2021 Influenza vaccination [facility] Start: 09-25-2021 COVID-19 VACCINE (3 - Booster for [place] series) COVID-19 VACCINE (3 - Booster for [place] series) [facility] Start: 2017 HPV Vaccine (1 - 3-d ose SCDM series) HPV Vaccine (1 - 3-dose SCDM series) [facility] Start: 2017 HPV Vaccine (optiona l start 27-45 years) HPV Vaccine (optional start 27-45 years) [facility] Start: 2009 DTaP/Tdap/Td vaccine (1 - Tdap) DTaP/Tdap/Td vaccine (1 - Tdap) [facility] Start: 2009 Hepatitis A (HAV) Vaccine (1 of 2 - Risk 2-dose series) Hepatitis A (HAV) Vaccine (1 of 2 - Risk 2-dose series) [facility] Start: 2009 Hepatitis A Vaccines (1 of 2 - Risk 2-dose series) Hepatitis A Vaccines (1 of 2 - Risk 2-dose series) [facility] Start: 2009 Hepatitis B vaccination Hepati tis B (HBV) Vaccine (1 of 3 - 19+ 3-dose series) [facility] Start: 2009 Hepatitis B Vaccines (1 of 3 - 19+ 3-dose series) Hepatitis B Vaccines (1 of 3 - 19+ 3-dose series) [facility] Start: 2009 Pneumococcal vaccination Pneumococcal Vaccine (1 of 2 - PCV) [facility] Start: 2009 Urine microalbumin profile DTAP,TDAP,TD (1 - Tdap) [facility] Start: 2008 HEPATITIS C SCREENING HEPATITIS C SC LISY [facility] Start: 2008 HIV SCREENING HIV SCREENING [facility] Start: 08-20-2003 Varicella vaccination Varicell a Vaccines (1 of 2 - 13+ 2-dose series) [facility] Start: 2002 Adult depression screening assessment DEPRESSION SCREENING [facility] Start: 08-20-1995 COVID-19 VACCINE (1) COVID-19 VACCIN E (1) [facility] Start: 08-20-1991 MMR Vaccines (1 of 1 - Standard series) MMR Vaccines (1 of 1 - Standard series) [facility] Start: 1990 HEPATITIS B (1 of 3 - 3-dose series) HEPATITIS B (1 of 3 - 3-dose series) [facility] Start: 1990 HIV screening HIV Screening [facility] Blood occult peroxid ase actv qual feces 1 deter OCCULT BLOOD, STOOL Lab Routine Encounter for Hemoccult screening When Specimen Available/Needed for 1 Occurrences starting 08/26/2024 [facility] Work Phone: Comment on above: When Specimen Availa ble/Needed for 1 Occurrences starting 08/26/2024 COVID & INFLUENZA A/ B & RSV PCR, ROUTINE COVID & INFLUENZA A/B & RSV PCR, ROUTINE Microbiology Routine URI, acute 12/21/2024 3:55 PM EDT [facility] Patient Education [facility] Work Phone: STREP A MOLECULAR (POC) STREP A MOLECULAR (POC) Microbiology Routine URI, acute Ordered: 12/21/2024 [facility] Work Phone: Comment on above: Ordered: 12/21/2024 Immunizations Immunization Date Immunization Notes Care Provider Jana campos 08-24-2024 tuberculin skin test ; purified protein derivative solution, intradermal [facility] Provider Work Phone: [facility] 12-04-2022 tetanus toxoid, redu arnel diphtheria toxoid, and acellular pertussis vaccine, adsorbed Brittany [facility] 07-31-2021 [place] SARS-COV-2 (COVID-19) vaccine, vector non-replicating, recombinant spike protein-Ad26, preservative free, 0.5 mL ([id number]=999) [facility] Provider Work Phone: [facility] 10-03-2020 [place] SARS-COV-2 (COVID-19) vaccine, vector non-replicating, recombinant spike protein-Ad26, preservative free, 0.5 mL ([id number]=188) [facility] Provider Work Phone: [facility] Payers Date Payer Category Payer Self-pay [address] [facility] [id number] 2024 [employer] [id number] 2022 Medicaid [id number] 2022 Medicaid [id number] 2021 Unknown [id number] 2015 Medicaid [place] [employer] [employer] [id number] 2015-Present [phone] [address] [place] [address] Medicaid [id number] 1990 Unknown [id number] 1990 Unknown [id number] Unknown [id number] Unknown [id number] Unknown [id number] Unknown [id number] Unknown [id number] Unknown [id number] Social History Date Type Detail Facility Start: 05-02-2015 End: 10-08-2022 Tobacco smoking status NHIS Ex-smoker [facility] Work Phone: Start: 05-02-2015 End: 08-29-2023 Cigarettes smoked current (pack per day) - Reported 1 [facility] Start: 05-02-2015 End: 09-01-2023 Tobacco use and exposure Former smokeless tobacco user [facility] Work Phone: Start: 05-02-2015 End: 12-04-2022 Alcohol intake Current drinker of alcohol (finding) [facility] Start: 11-05-2012 History SDOH Alcohol Comment occassional [facility] Start: 1990 Sex Assigned At Not on file [facility] Start: 08-28-2021 Tobacco smoking status Heavy t obacco smoker (finding) [facility] Sex Assigned At Sex [facility] Start: 09-01-2021 [facility] [employer] Work Phone: Start: 09-01-2021 Tobacco use and exposure Smokeless tobacco non-user [employer] Work Phone: Start: 09-01-2021 End: 12-21-2024 Alcohol intake Ex-drinker (finding) [facility] Phone: Start: 09-01-2021 History SDOH Alcohol Frequency 1 [employer] Phone: Start: 08-22-2021 End: 09-01-2021 Exposure to SARS-CoV-2 (event) Not sure [facility] Phone: History of tobacco use Current smoker [facility] History of tobacco use Cigarette Smoker [facility] Start: 12-04-2022 End: 08-29-2023 Tobacco use panel [facility] How often to you hav e a drink containing alcohol? Never [facility] Start: 03-29-2012 How many standard drinks containing alcohol do you have on a typical day? Patient does not drink [facility] Start: 09-01-2023 End: 02-14-2025 Tobacco smoking status VTIS Smokes tobacco daily [facility] History of tobacco use Chews Tobacco [facility] Tobacco smoking stat [facility] Tobacco smoking consumption unknown [facility] Start: 03-01-2012 Sex Male (finding) [facility] Start: 07-21-2020 Lives Lives [facility] Start: 1990 Sex Assigned At Male [facility] Functional Status Date Assessment Result Facility 09-01-2023 Are you deaf, or do you have serious difficulty hearing No 09/01/2023 10:15 AM Loki David RN [facility] 09-01-2023 Are you blind, or do you have serious difficulty seeing, even when wearing glasses No 09/01/2023 10:15 AM Loki David RN No [facility] 09-01-2023 Do you have serious difficulty walking or climbing stairs No 09/01/2023 10:15 AM Loki David RN [facility] 09-01-2023 Do you have difficul ty dressing or bathing No 09/01/2023 10:15 AM Loki David RN [facility] 09-01-2023 Because of a physica l, mental, or emotional condition, do you have difficulty doing errands alone such as visiting a physician's office or shopping No 09/01/2023 10:15 AM Loki David RN No [facility] 09-08-2021 [facility] 08-29-2021 [facility] 08-29-2021 [facility] 08-29-2021 [facility] 08-28-2021 [facility] Mental Status Date Assessment Result Facility 02-14-2025 Cognitive function Level Of Cons ciousness Awake [facility] Work Phone: 01-26-2025 Cognitive function Voice/Name [facility] Work Phone: 01-08-2025 Cognitive function Level Of Cons ciousness Awake;Alert;Appropriate;Fol lows Commands [facility] Work Phone: 09-01-2023 Because of a physica l, mental, or emotional condition, do you have serious difficulty concentrating, remembering, or making decisions No 09/01/2023 10:15 AM Loki David RN No [facility] 09-08-2021 [facility]29[facility]-28[facility]21 [facility] 09-09-2021 to 02-14-2025 Note Date & Type Note Facility 02-14-2025 Discharge summary [facility] 02-02-2025 Discharge summary [facility] 02-02-2025 Note HNO ID: [id number] Author: QUAN TAYLOR MD Service: ? Author Type: Physician Type: Progress Notes Filed: 02/02/2025 16:19 Note Text: Urgent Care Triage Note: Patient presents to the urgent care with anxiety. He was evaluated at the ER for chest pain and palpitations. He reports the evaluation was negative. He is scheduled for follow up with a prior PCP (patient has returned to the area). He is out of the ativan prescribed at the ER and would like a refill. He is not interested in non-benzodiazepine alternatives and cancelled his appointment here. [facility] 02-02-2025 Discharge summary Note Date/Time February 02, 2025 4:49pm [facility] Medical Records Department [address] [place] [address] Emergency Department Summary 02/02/25 MR#: [id number] Acct: [id number] Name: KEKE PEMBERTON Rep #:[id number] : 1990 34 From: Juan Garrett MD PCP: Vasyl Lara MD Status:PRE ER Location: ED HPI History of Present Illness Chief Complaint: Anxiety Narrative Narrative: 34-year-old male past medical history of anxiety presents with panic attacks andpalpitations that he has been having for the last week. He relates history thathe was seen in the emergency department on January 26, 8 days ago, and had workupfor palpitations. He states that he is having increased panic attacks because one of his relatives recently. He had been given Ativan to take up to 3 times a day, 1 mg. He was only taking it once daily for his panic attacks and heart palpitations, but may have taken it 2 or 3 times on a day or 2. He is outof his medication currently, and states [facility] Friday, 5 days from now. [facility] Medical History Anxiety Home Medications ?Medication ?Instructions ?Recorded ?Last Taken ?Type lorazepam 1 mg tablet (Ativan) 1 mg PO TID PRN anxiety #10 tabs 01/26/25 Unknown Rx lorazepam 1 mg tablet (Ativan) 1 mg PO BID PRN anxiety #8 tabs 02/02/25 Unknown Rx Allergy/AdvReac Type Severity Reaction Status Date / Time No Known Allergies Allergy Verified 02/02/25 16:22 Social History Smoking Status: Current every day smoker tobacco type: e-cigarettes ROS ROS ED ROS Narrative Review of systems positive for heart palpitations, panic attacks. He feels his heart racing and becomes short of breath at times. Sometimes a few times a day. EXAM Physical Exam Narrative Exam Narrative: Afebrile. Vital signs noted. Nontoxic-appearing. Cardiovascular examination reveals mild tachycardia. Lungs clear to auscultation bilaterally. Abdomen soft nontender with positive bowel sounds. No guarding or rebound. Neurological examination nonfocal, nonlateralizing. Upon entering the room, he is using his electronic tablet, reclined on the cot. Const Vital Signs: 02/02/25 16:22 Temperature 98.2 F Temperature Source Oral Pulse Rate 146 H Respiratory Rate 18 Blood Pressure 133/85 H Blood Pressure Mean 101 Pulse Ox 99 Oxygen Delivery Method Room Air MDM MDM MDM Narrative Medical decision making narrative: I do not feel differential diagnosis is applicable here. We do feel that you are probably having more of a grief reaction and panic attacks. I reviewed his prior ED visit and he had workup for chest pain and palpitations. He had been written a prescription for Ativan 1 mg. He received 10 tablets. I had a lengthy discussion with the patient and he was told that further prescriptions for benzodiazepines needs to come from his primary care provider and not from the emergency department. While he will be given a prescription for 8 additional tablets, no further tablets should be written from the emergency department, but he could be started on hydroxyzine or an alternative medication. Ganesh not feel that he requires further laboratory work or imaging as he had a chest x-ray within the last 7 days, and a workup for his heart palpitations. Disposition is discharged home in stable condition. History & Record Review Discussion w/independent historian: Patient Additional record(s) reviewed:: Prior ED visit Discharge Plan Triage Chief Complaint: Anxiety ED Provider: Juan Garrett Dx/Rx/DC Orders Clinical Impression: Anxiety, Palpitation Instructions: ED Anxiety Reaction, ED Heart Palpitations, ED Panic Attack Prescriptions: New lorazepam [Ativan] 1 mg tablet 1 mg PO BID PRN (Reason: anxiety) Qty: 8 0RF No Action lorazepam [Ativan] 1 mg tablet 1 mg PO TID PRN (Reason: anxiety) Qty: 10 0RF Primary Care Provider: Vasyl Lara Referrals: Vasyl Lara MD [Primary Care Provider, Family Practice] - 02/07/25 Activity Restrictions/Additional Instructions: Further prescriptions for benzodiazepines need to come from your primary care provider or a psychiatrist. Follow-up with your primary care provider on Fridayas scheduled. Print Language: Dutch Disposition Disposition: Home, Self Care What to do if you have Problems For any increased pain, shortness of breath, bleeding, nausea or vomiting, chestpain, or any unexpected problems, contact your Primary Care Provider. Call [facility] ([phone]) or report to the closest Emergency Room. Call 911 if necessary. 02/02/25 1649 <Electronically signed by Juan Garrett MD> Cosigner Signature (if applicable): CC: Vasyl Lara MD ~ Signed [facility] Work Phone: [phone]) 476-174610-06-2025 Hospital Discharge instructionsAdditional Instructions Further prescriptions for benzodiazepines need to come from your primary care provider or a psychiatrist. Follow-up with your primary care provider on Friday as scheduled. [facility] Work Phone: 1(219) 725-211610-01-2025 Discharge summary [facility] Medical Records Department [address] [place] [address] Emergency Department Summary 01/26/25 MR#: [id number] Acct: [id number] Name: KEKE PEMBERTON Rep #:[id number] : 1990 34 From: Aisha Alves DO PCP: Care Physician,No Primary Status :DEP ER Location: ED HPI History of Present Illness Chief Complaint: Palpitations Detail of Chief Complaint: Chest pain and palpitations Informant: patient Narrative Narrative: Patient presents with chest pain and palpitations that been going on for at least 6 months. States he was seen a few days ago in the emergency department and had an EKG that was unremarkable. Patientis concerned because his father had heart disease and patient believes he may have had heart attacks in his 30s but does not know if he had any heart stents as patient's father is currently .Patient denies recent travel or surgery. Denies recent illness. He describes at times having numbness and tingling in his right arm. He complains of exertional dyspnea at times. He has not taken his pulse when these palpitations are occurring and they can last up to an hour. [facility] Medical History no medical history Home Medications ?Medication ?Instructions ?Recorded ?Last Taken ?Type lorazepam 1 mg tablet (Ativan) 1 mg PO TID PRN anxiety #10 tabs 01/26/25 Unknown Rx Allergy/AdvReac Type Severity Reaction Status Date / Time No Known Allergies Allergy Verified 01/26/25 07:46 Social History Smoking Status: Current every day smoker tobacco type: e-cigarettes ROS ROS ED Review of Systems ROS Unobtainable: other Constitutional Constitutional ED: Reports lethargy; Denies chills, fever(s), sweats or weight loss Eyes Eyes: Denies blurry vision, change in vision or diplopia ENT ENT ED: Denies rhinorrhea or sore throat Cardiovascular Cardiovascular: Reports chest pain, palpitations and racing heartbeat; Denies orthopnea Respiratory/Chest Respiratory/Chest: Reports dyspnea and dyspnea on exertion; Denies cough, orthopnea or sputum Gastrointestinal Gastrointestinal: Denies abdominal pain, diarrhea, nausea or vomiting Genitourinary Genitourinary ED: Denies dysuria, hematuria or urinary frequency Musculoskeletal Musculoskeletal: Denies arthralgias, back pain, myalgias or neck pain Integumentary Denies abscess, Abrasions or rash Neurologic Neurologic: Denies headache(s) or weakness Psychiatric Psychiatric: Denies anxiety, depression or suicidal thoughts Endocrine Endocrinology: Denies polydipsia, polyphagia or polyuria Hematologic/Lymphatic Hematologic/Lymphatic: Denies easy bleeding, easy bruising or lymphadenopathy Allergic/Immunologic Allergic/Immunologic ED: Denies mouth swelling, tongue swelling or urticaria EXAM Physical Exam Const Vital Signs: 01/26/25 07:46 01/26/25 08:09 01/26/25 08:27 Temperature 97.1 F L Temperature Source Temporal Pulse Rate 63 Respiratory Rate 18 Respiratory Effort Normal Non-Labored Respiratory Pattern Normal Blood Pressure 125/62 H Blood Pressure Mean 83 Pulse Ox 100 Oxygen Delivery Method Room Air 01/26/25 08:45 Temperature Temperature Source Pulse Rate 70 Respiratory Rate 15 Respiratory Effort Respiratory Pattern Blood Pressure 129/73 H Blood Pressure Mean 91 Pulse Ox 100 Oxygen Delivery Method Room Air Positive well nourished and well developed General Appearance ED: well developed and NAD HEENT Reports TM's clear and moist mucous membranes normocephalic and atraumatic; Negative for trauma or tenderness Tympanic Membrane ED: Yes TM's clear Eyes PERRL and EOMs intact bilaterally General Eye ED: Negative for pale conjunctiva or scleral icterus Neck no lymphadenopathy, supple and no JVD General: Negative for tenderness Chest Wall inspection of chest normal and palpation of chest normal Chest: Negative for tenderness Resp normal respiratory effort and clear to auscultation bilaterally Effort and Inspection: Negative for respiratory distress or pain with movement Auscultation: Negative for rhonchi, wheezes or diminished lung sounds Cardio regular rate, regular rhythm, S1 normal heart sound, S2 normal heart sound and no murmurs Peripheral Pulses: pulses 2+ throughout GI normal to inspection, nondistended, normoactive bowel sounds, soft to palpation,non-tender, non-distended and no masses Back/Spine no CVA tenderness and no thoracic nor lumbar tenderness Extremity normal to inspection General Extremety ED: Negative for edema General Extremity: Negative for edema Neuro oriented x3, CN's II-XII intact bilaterally, no sensory deficits noted and gait normal Sensorium / Orientation: awake, alert, oriented to person, oriented to place andoriented to time Motor Exam: strength 5/5 throughout and strength abnormal Psych mental status grossly normal Skin no rashes or lesions noted and no wounds MDM MDM MDM Narrative Medical decision making narrative: Patient presents with palpitations and chest pain and shortness of breath. Somehistory of anxiety that is currently not being treated. Does not see a primary care physician. No significant risk factors for coronary artery disease other than possibly family history however this is not clear. EKG obtained arrival shows sinus rhythm with rate of 68 bpm with no acute ST segment changes and no evidence of ectopy. CBC with differential was normal. Chemistry is normal. Troponin is less than 6. D-dimerwas normal. Chest x-ray unremarkable. This point discussed with patient the results. Will order as needed Ativan and he did asked that I give him a prescription for an albuterol inhaler as he has beendiagnosed with asthma and does not currently have 1. Patient will be referred to primary care physician for follow-up. Suspect component of anxiety. Low suspicion for significant cardiac dysrhythmia Lab Data Attestation: I reviewed the patient's lab results. Labs: Laboratory Results - last 24 hr 10/01/25 08:20 WBC 7.4 RBC 4.94 Hgb 15.0 Hct 45.3 MCV 91.7 MCH 30.4 MCHC 33.1 RDW Std Deviation 42.3 RDW Coeff of Rad 12.5 Plt Count 206 MPV 9.7 Immature Gran % (Auto) 0.300 Neut % (Auto) 44.5 L Lymph % (Auto) 36.0 Fleming % (Auto) 12.3 H Eos % (Auto) 6.4 H Baso % (Auto) 0.5 Absolute Neuts (auto) 3.3 Absolute Lymphs (auto) 2.66 Nucleated RBC % 0 D-Dimer Quant (PE/DVT) 0.27 Sodium 139 Potassium 3.8 Chloride 104 Carbon Dioxide 26.0 Anion Gap 9 BUN 17 Creatinine 0.74 Estim Creat Clear Calc 130.85 Est GFR (MDRD) Non-Af 122 BUN/Creatinine Ratio 22.9 H Glucose 117 H Calcium 9.0 Troponin T High Sens < 6 Radiography Diagnostic Testing: Clinical Impression(s) from Imaging Studies Chest X-Ray 01/26/25 08:25 IMPRESSION: No acute pulmonary process Reading Location: [facility] 1 view chest x-ray obtained interpreted by myself as no evidence of infiltrate or pneumothorax or acute disease process. Radiology in agreement EKG Initial EKG: Attestation: I personally reviewed and interpreted this EKG as follows: Comments: Sinus rhythm with rate of 68 bpm with no acute ST segment change Discharge Plan Triage Chief Complaint: Palpitations ED Provider: Aisha Alves Dx/Rx/DC Orders Clinical Impression: Anxiety, Palpitation, Chest pain Instructions: ED Anxiety Reaction, ED Chest Pain, Uncertain Cause, ED Heart Palpitations Prescriptions: New lorazepam [Ativan] 1 mg tablet 1 mg PO TID PRN (Reason: anxiety) Qty: 10 0RF Primary Care Provider: Care Physician,No Primary Referrals: Vasyl Lara MD [Med Staff - Draw Operator, Family Practice] - 3-5 Days Care Physician,No Primary [Primary Care Provider, Medical] Print Language: Dutch Disposition Disposition: Home, Self Care What to do if you have Problems For any increased pain, shortness of breath, bleeding, nausea or vomiting, chestpain, or any unexpected problems, contact your Primary Care Provider. Call [facility] ([phone]) or report tothe closest Emergency Room. Call 911 if necessary. 01/26/25 1546 Cosigner Signature (if applicable): CC: No Primary Care Physician ~ Signed [facility]10-01-2025 Radiology Diagnostic study note [facility] Imaging Services [address] [place] [address] Chest 1 View (Portable) MR#: [id number] Acct: [id number] Name: KEKE PEMBERTON Rep #: [id number] : 1990 M 34 From: Oleg Khalil MD PCP: Care Physician,No Primary Status: REG ER Study:Chest 1 View (Portable) Date of Exam: 01/26/25 Exam# [id number] Ordering Dr: Gillian Alves DO PROCEDURE: CHEST 1 VIEW (PORTABLE) 01/26/2025 REASON FOR EXAM: CHEST PAIN TECHNIQUE: 2 frontal views COMPARISON: 2019 FINDINGS: Hardware: EKG leads overlie the chest Heart: The heart size is normal. Lungs: The lungs are clear. Bones: The bones are unremarkable. Other: RAD/Chest 1 View (Portable) IMPRESSION: No acute pulmonary process Reading Location: [facility] CC: Dr. Aisha Avles DO; No Primary Care Physician ~ [place]er Pick: Signed [facility]09-13-2025 Discharge summary [facility] Medical Records Department [address] [place] [address] Emergency Department Summary 01/08/25 MR#: [id number] Acct: [id number] Name: KEKE PEMBERTON Rep #:[id number] : 1990 34 From: Castillo Jones DO PCP: Care Physician,No Primary Status :REG ER Location: ED HPI History of Present Illness Chief Complaint: Med Refill Narrative Narrative: Patient is a 34-year-old male with past medical history of opiate abuse who presents to the emergency department requesting Suboxone. He states that he wason Suboxone previously and had a provider int [place] this prescription and states that he was not taken on a regular basis andnotes that he had some leftover. He states he has been clean for a extended period of timeat this point time and he recently lost a few loved ones and his family and is having a lot of stress from this. He states that he is having the urge to use fentanyl again but states that he has not and would prefer to take the Suboxone to prevent this from happening. Patient otherwise has no complaints. [facility] Medical History no medical history Home Medications ?Medication ?Instructions ?Recorded ?Last Taken ?Type cephalexin 500 mg capsule 500 mg PO 4X/DAY 07/22/20 Un known History sulfamethoxazole 800 1 tablet PO BID 07/22/20 Unk nown History mg-trimethoprim 160 mg tablet buprenorphine 8 mg-naloxone 2 mg 1 film buccal DAILY 3 days #3 ea 01/08/25 Unknown Rx sublingual film (Suboxone) Allergy/AdvReac Type Severity Reaction Status Date / Time No Known Allergies Allergy Verified 01/08/25 13:00 Social History Smoking Status: Current every day smoker tobacco type: e-cigarettes ROS ROS ED ROS Narrative Constitutional: Denies fevers, chills, headaches Cardiovascular: Denies chest pain Respiratory: Denies shortness of breath Abdomen: Denies nausea vomit diarrhea : Denies urinary symptoms Neurological: Denies numbness, weakness, tingling Musculoskeletal: Denies back pain Skin: Denies any rashes or lesions EXAM Physical Exam Narrative Exam Narrative: General: Patient was lying in bed resting comfortably did not appear to be acutedistress Head: Atraumatic, normocephalic Eyes: PERRL bilaterally, EOMI bilaterally, no conjunctival injection noted Neck: Soft, supple, trachea midline Cardiovascular: Regular rate and rhythm no murmurs gallops rubs are noted Respiratory: Clear to auscultation bilaterally no rales rhonchi or wheezes noted Abdomen: Soft, nondistended, no tenderness to palpation Extremities: +5/5 strength noted in the bilateral upper and lower EXTR, radial pulses +2/4 in the bilateral extremities, no pedal edema no exam Neurological: Patient follow commands knew that he was at [facility] year is 2024 Skin: Warm, dry, intact no rashes or lesions noted Const Vital Signs: 01/08/25 12:58 01/08/25 14:01 Temperature 98.6 F Temperature Source Oral Pulse Rate 94 Respiratory Rate 15 Respiratory Effort Normal Non-Labored Respiratory Pattern Normal Blood Pressure 106/71 Blood Pressure Mean 82 Pulse Ox 100 Oxygen Delivery Method Room Air MDM MDM MDM Narrative Medical decision making narrative: Patient is a 34-year-old male who presented to the emergency department the chief complaint of wanting Suboxone. Patient drug screen performed here and then be reevaluated Drug screen reviewed showed presumptive positive for amphetamines and cannabis. Discussed with the patient he will given a dose here in the emergency departmenthe states that he was on 8 mg previously will give him this dose. He will be given another dose for tomorrow as well and he was referred to the addiction program for them to continue and manage this. He is agreeable this plan he is advised return with worsening symptoms or concerns. All questions were answeredhe is discharged home in stable condition. Lab Data Labs: Laboratory Results - last 24 hr 01/08/25 14:10 Urine Opiates Screen NEGATIVE U Buprenorphine Qual NEGATIVE Ur Oxycodone Screen NEGATIVE Urine Methadone Screen NEGATIVE Urine Fentanyl Screen NEGATIVE Ur Barbiturates Screen NEGATIVE Ur Phencyclidine Scrn NEGATIVE Ur Amphetamines Screen PRESUMPTIVE POSITIVE U Benzodiazepines Scrn NEGATIVE Urine Cocaine Screen NEGATIVE U Cannabinoids Screen PRESUMPTIVE POSITIVE Discharge Plan Triage Chief Complaint: Med Refill ED Provider: Castillo Jones Dx/Rx/DC Orders Clinical Impression: Substance abuse, Anxiety Prescriptions: New buprenorphine-naloxone [Suboxone] 8-2 mg film 1 film buccal DAILY 3 Days Qty: 3 0RF No Action sulfamethoxazole-trimethoprim 1 TABLET tablet 1 tablet PO BID cephalexin 500 MG capsule 500 mg PO 4X/DAY Primary Care Provider: Care Physician,No Primary Referrals: Callie Aldridge DO [Med Staff - Consulting] - Care Physician,No Primary [Primary Care Provider] - Activity Restrictions/Additional Instructions: Take the prescription as prescribed follow-up with the physician you are referred to to continue this medication and manage this. Return with worsening symptoms or any concerns Print Language: Dutch Disposition Disposition: Home, Self Care What to do if you have Problems For any increased pain, shortness of breath, bleeding, nausea or vomiting, chestpain, or any unexpected problems, contact your Primary Care Provider. Call [facility] ([phone]) or report tothe closest Emergency Room. Call 911 if necessary. 01/08/25 1528 Cosigner Signature (if applicable): CC: No Primary Care Physician ~ Signed [facility]09-13-2025 Discharge summary Author Castillo Jones [facility] Note Date/Time January 08, 2025 3:28pm [facility] Medical Records Department [address] [place] [address] Emergency Department Summary 01/08/25 MR#: [id number] Acct: [id number] Name: KEKE PEMBERTON Rep #:[id number] : 1990 34 From: Castillo Jones DO PCP: Care Physician,No Primary Status :REG ER Location: ED HPI History of Present Illness Chief Complaint: Med Refill Narrative Narrative: Patient is a 34-year-old male with past medical history of opiate abuse who presents to the emergency department requesting Suboxone. He states that he wason Suboxone previously and had a provider in the [place] give [place] this prescription and states that he was not taken on a regular basis and notes that he had some leftover. He states he has been clean for a extended period of timeat this point time and he recently lost a few loved ones and his family and is having a lot of stress from this. He states that he is having the urge to use fentanyl again but states that he has not and would prefer to take the Suboxone to prevent this from happening. Patient otherwise has no complaints. PFSH PFS Medical History no medical history Home Medications ?Medication ?Instructions ?Recorded ?Last Taken ?Type cephalexin 500 mg capsule 500 mg PO 4X/DAY 07/22/20 Un known History sulfamethoxazole 800 1 tablet PO BID 07/22/20 Unk nown History mg-trimethoprim 160 mg tablet buprenorphine 8 mg-naloxone 2 mg 1 film buccal DAILY 3 days #3 ea 01/08/25 Unknown Rx sublingual film (Suboxone) Allergy/AdvReac Type Severity Reaction Status Date / Time No Known Allergies Allergy Verified 01/08/25 13:00 Social History Smoking Status: Current every day smoker tobacco type: e-cigarettes ROS ROS ED ROS Narrative Constitutional: Denies fevers, chills, headaches Cardiovascular: Denies chest pain Respiratory: Denies shortness of breath Abdomen: Denies nausea vomit diarrhea : Denies urinary symptoms Neurological: Denies numbness, weakness, tingling Musculoskeletal: Denies back pain Skin: Denies any rashes or lesions EXAM Physical Exam Narrative Exam Narrative: General: Patient was lying in bed resting comfortably did not appear to be acutedistress Head: Atraumatic, normocephalic Eyes: PERRL bilaterally, EOMI bilaterally, no conjunctival injection noted Neck: Soft, supple, trachea midline Cardiovascular: Regular rate and rhythm no murmurs gallops rubs are noted Respiratory: Clear to auscultation bilaterally no rales rhonchi or wheezes noted Abdomen: Soft, nondistended, no tenderness to palpation Extremities: +5/5 strength noted in the bilateral upper and lower EXTR, radial pulses +2/4 in the bilateral extremities, no pedal edema no exam Neurological: Patient follow commands knew that he was at [facility] year is 2024 Skin: Warm, dry, intact no rashes or lesions noted Const Vital Signs: 01/08/25 12:58 01/08/25 14:01 Temperature 98.6 F Temperature Source Oral Pulse Rate 94 Respiratory Rate 15 Respiratory Effort Normal Non-Labored Respiratory Pattern Normal Blood Pressure 106/71 Blood Pressure Mean 82 Pulse Ox 100 Oxygen Delivery Method Room Air MDM MDM MDM Narrative Medical decision making narrative: Patient is a 34-year-old male who presented to the emergency department the chief complaint of wanting Suboxone. Patient drug screen performed here and then be reevaluated Drug screen reviewed showed presumptive positive for amphetamines and cannabis. Discussed with the patient he will given a dose here in the emergency departmenthe states that he was on 8 mg previously will give him this dose. He will be given another dose for tomorrow as well and he was referred to the addiction program for them to continue and manage this. He is agreeable this plan he is advised return with worsening symptoms or concerns. All questions were answeredhe is discharged home in stable condition. Lab Data Labs: Laboratory Results - last 24 hr 01/08/25 14:10 Urine Opiates Screen NEGATIVE U Buprenorphine Qual NEGATIVE Ur Oxycodone Screen NEGATIVE Urine Methadone Screen NEGATIVE Urine Fentanyl Screen NEGATIVE Ur Barbiturates Screen NEGATIVE Ur Phencyclidine Scrn NEGATIVE Ur Amphetamines Screen PRESUMPTIVE POSITIVE U Benzodiazepines Scrn NEGATIVE Urine Cocaine Screen NEGATIVE U Cannabinoids Screen PRESUMPTIVE POSITIVE Discharge Plan Triage Chief Complaint: Med Refill ED Provider: Castillo Jones Dx/Rx/DC Orders Clinical Impression: Substance abuse, Anxiety Prescriptions: New buprenorphine-naloxone [Suboxone] 8-2 mg film 1 film buccal DAILY 3 Days Qty: 3 0RF No Action sulfamethoxazole-trimethoprim 1 TABLET tablet 1 tablet PO BID cephalexin 500 MG capsule 500 mg PO 4X/DAY Primary Care Provider: Care Physician,No Primary Referrals: Callie Aldridge DO [Med Staff - Consulting] - Care Physician,No Primary [Primary Care Provider] - Activity Restrictions/Additional Instructions: Take the prescription as prescribed follow-up with the physician you are referred to to continue this medication and manage this. Return with worsening symptoms or any concerns Print Language: Dutch Disposition Disposition: Home, Self Care What to do if you have Problems For any increased pain, shortness of breath, bleeding, nausea or vomiting, chestpain, or any unexpected problems, contact your Primary Care Provider. Call [facility] ([phone]) or report to the closest Emergency Room. Call 911 if necessary. 01/08/25 1528 <Electronically signed by Castillo Jones DO> Cosigner Signature (if applicable): CC: No Primary Care Physician ~ Signed [facility] Work Phone: 1(952) 492-565608-27-2025 Telephone encounter Note* Telephone Encounter - Myrtle Gillespie APRN.CNP - 12/22/2024 8:40 AM EDT Note faxed per request Myrtle Gillespie APRN.CNP [facility] Work Phone: [phone]) 338-420708-27-2025 Miscellaneous Notes* Telephone Encounter - Myrtle Gillespie APRN.CNP - 12/22/2024 8:40 AM EDT Note faxed per request Myrtle Gillespie APRN.CNP * Telephone Encounter - Tamar Suggs RN - 12/22/2024 8:22 AM EDT Girlfriend returns call and reports that patient needs a letter sent to his public safety telecommunicator to notify he has tested positive for Covid as he has a court hearing this morning at 9 am that he needs to be present for and with Covid he can't. Fax number is [phone]. Girlfriend not listed on chart. Contact number for patient is [phone]. Tamar Suggs RN * Telephone Encounter - Mayela Fischer PA - 12/22/2024 8:14 AM EDT Please contact patient and let him know that COVID swab came back positive. He may return to work when he is 24 hours fever free and symptoms improved documented in this encounterUniversity [facility]25 Telephone encounter Note * Telephone Encounter - Tamar Suggs RN - 12/22/2024 8:22 AM EDT Girlfriend returns call and reports that patient needs a letter sent to his public safety telecommunicator to notify he has tested positive for Covid as he has a court hearing this morning at 9 am that he needs to be present for and with Covid he can't. Fax number is [phone]. Girlfriend not listed on chart. Contact number for patient is [phone]. Tamar Suggs RN [facility]08-27-2025 Telephone encounter Note* Telephone Encounter - Mayela Fischer PA - 12/22/2024 8:14 AM EDT Please contact patient and let him know that COVID swab came back positive. He may return to work when he is 24 hours fever free and symptoms improved [facility] Work Phone: [phone]) 378-690708-27-2025 Telephone encounter Note* Telephone Encounter - Liz Talamantes RN - 12/22/2024 8:10 AM EDT Patient calling to ask for test results [...] at a later time. Liz Talamantes RN [facility]08-27-2025 Miscellaneous Notes* Telephone Encounter - Liz Talamantes RN - 12/22/2024 8:10 AM EDT Patient calling to ask for test results [...] time. Liz Talamantes RN documented in this encounterUniversity Hospitals [facility]08-26-2025 NoteHNO ID: [id number] Author: RUBIA HILL APRN.KORIN Service: ? Author Type: Nurse Practitioner Type: Progress Notes Filed: 12/21/2024 16:23 Note Text: [facility] Aguilar Pemberton is a [...] girlfriend also tested positive. - Received the [facility] COVID-19 vaccine. - Denies emesis; reports mild [...] and tomorrow; will fax documentation to patient's veneer sander as requested. and Recording using stickapps software for draft documentation of the visit was discussed with the patient/authorized account development representative; all questions welcomed and answered. Patient/autho (more content not included)...[facility]08-26-2025 History of Present illness Narrative* Rubia Hill APRN.BRUSH HOLDER INSPECTOR - 12/21/2024 4:10 PM EDT [facility] Aguilar Pemberton is a [...] and tomorrow; will fax documentation to patient's veneer sander as requested. and Recording using stickapps software for draft documentation of the visit was discussedwith the patient/authorized account development representative; all questions welcomed and answered. Patient/authorized account development representative agreed to proceed MDM Procedures [1] Social History Tobacco Use Smoking status: Every Day Current packs/day: 0.50 Types: Cigarettes Smokeless tobacco: Former Types: Chew Vaping Use Vaping status: Never Used Substance Use Topics Alcohol use: Not Currently Comment: occassional Drug use: Yes Types: Marijuana Comment: Hx of IV documented in this encounterUniversity Hospitals [facility]08-26-2025 [id number] (AGENT OF COVID-19) RNA: Detected INFLUENZA A RNA: Not detected INFLUENZA B RNA: Not detected RESPIRATORY SYNCYTIAL VIRUS (RSV) RNA: Not detectedGeorgetown Behavioral HospitalComment on above:Performed By: #### [id number] #### [facility] CLIA [id number] [address] [place] [address] [id number] History of Present illness Narrative* Kisha Flor RN - 08/26/2024 6:55 PM EDT Nurse to pod to read PPD Reading of 0.0mm Results added in patients chart. * Kayla Patterson RN - 08/26/2024 12:27 PM EDT Pt reports he had blood in his stool last 2 days. No other symptoms. Will pend occult blood. * Kisha Flor RN - 08/26/2024 10:13 AM EDT Nurse to pod to read PPD, patient is off the unit at court. * Dot Lara RN - 08/24/2024 4:43 PM EDT Images from the original note were not [...] 34 year old male, [place] [facility] the admission within the last 12 months. Patient/inmate is being seen today for 14 Day Health Assessment. Additional clinical concerns today: .Inmate is a&o x 3 able to make needs known. Inmate denies any pain or distress denies SI/HI . Inmate states that he has a hx of opioid use and that he had a script of Suboxone [facility] last took one a [...] or any previous visit (from the past 03660 hours). BMP (last 3 years, up to [...] the time of the health assessment. CareEverywhere immunizations,allergies, problem list were reviewed and reconciled with internal records. Receiving screen was reviewed and any interim acute care provided during admission. Clinical concerns: Documentation of health assessment completed for licensed independent provider review Diagnostic and therapeutic orders pended for licensed independent provider review and completion Oral hygiene and preventative oral education provided Patient/inmate questions answered, franklin education provided: Inmate educated on the kite system Admission problem list updated to reflect review and clinical findings Dot Lara RN * Lindsay Lundberg RN - 08/24/2024 2:09 PM EDT [facility] Chart Review Lindsay Lundberg RN reviewed patient chart 08/24/2024 2:10 PM. ED/Observation/Admission last year? Yes. 08/28/2023 Foreign Body Ingestion Psych History/Suicidal Ideation? Yes. Bipolar, History swallowing razor blades and batteries, Anxiety Disorder ADHD Tox Screen 08/29/2023 Positive Cannabinoids, Opiates, Benzos Were they admitted IP for this? Yes Last 04/25/2023 Have they ever been incarcerated before at [facility]? No STI's/HIV Hx? Yes Hep C positive 04/25/2023 TB up to date? No List of current medications (dose and frequency): None on file Any referrals placed? Yes. Psych: Bipolar, history swallowing razor blades, batteries documented in this [id number] Progress note* Psychotherapy Note - Sea Hernandez - 08/26/2024 5:05 PM EDT SW met with this patient following request by nursing. Patient presents as alert and oriented. Neat and clean. Linear and organized. No evidence of AVH ornegative symptoms. Patient states he has pica and will eat razor blades if he gets too stressed out. Requesting a move to the MHU or a single cell. Also requesting MAT. Patient is future oriented and not in distress at this time. Appears to be attempting to manipulatehis housing status. Addiction Medicine provider appointment is also in place. RICHELLE Keys MA, LICDC-CS [id number] Miscellaneous Notes* Psychotherapy Note - Sea Hernandez - 08/26/2024 5:05 PM EDT SW met with this patient following request by nursing. Patient presents as alert and oriented. Neat and clean. Linear and organized. No evidence of AVH ornegative symptoms. Patient states he has pica and will eat razor blades if he gets too stressed out. Requesting a move to the MHU or a single cell. Also requesting MAT. Patient is future oriented and not in distress at this time. Appears to be attempting to manipulatehis housing status. Addiction Medicine provider appointment is also in place. RICHELLE Keys MA, LICDC-CS documented in this [id number] History of Present illness Narrative* [place] Randee, [facility] - 08/25/2024 1:42 PM EDT Chart review reveals a recent lab test performed at [facility]. Unexpected results found as part [...] the third one down under procedures (referral [id number]). I will get the referral once this order is signed and would manage your patient's HCV care including ordering labs, complying with insurance formulary, creating a treatment plan and following patientuntil final viral load (SVR12) so we can document cure. Randee Florez RPh documented in this encounterUniversity Hospitals Lake [facility] Center04-30-2025 NoteHNO ID: [id number] Author: RANDEE FLOREZ RPh Service: ? Author Type: Pharmacist Type: Progress Notes Filed: 08/25/2024 13:47 Note Text: Chart review reveals a recent lab test performed at [facility]. Unexpected results found as part [...] the third one down under procedures (referral [id number]). I will get the referral once this order is signed and would manage your patient's HCV care including ordering labs, complying with insurance formulary, creating a treatment plan and following patient until final viral load (SVR12) so we can document cure. Randee [place], [facility]05-06-2024 NoteHNO ID: [id number] Author: NATY FERNANDO RN Service: Care Management Author Type: Registered Nurse Type: Care Mgt Progress Note Filed: 09/01/2023 15:08 Note Text: CARE MANAGEMENT DISCHARGE NOTE SERVICE DATE: September 01, 2023 SERVICE TIME: 3:07 PM Admission Date: 08/28/2023 LOS: 4 days Discharge Arrangement Discharge Arrangement: Penitentiary/Police Provider Name: N/A, no PCP noted Caregiver Assessment Caregiver is ready, willing and able to meet the patient's needs as recommended by the inter-professional team: No Caregiver needed Transportation Arrangements Transportation Arrangements: Other: See Comment (Logistics System Engineer to arrange transport) Handoff Communication: Handoff to: Primary Care Physician Primary Care Physician Name/Phone: N/A, none listed Additional Information: Plan for pt to return to longterm. Logistics System Engineer at bedside. Logistics System Engineer to arrange transportation, nothing needed from . SIGNATURE: Naty Fernando RN, BSN PATIENT NAME: Keke Pemberton DATE: September 01, 2023 TIME: 3:07 PM CONTACT #: [phone] [facility] Note HNO ID: [id number] Author: GABRIELLA AHUJA RN Service: Nursing Author Type: Registered Nurse Type: Nursing Progress Note Filed: 09/01/2023 14:07 Note Text: Pt accompanied by [place] on arrival to [facility] 09-01-2023 NoteHNO ID: [id number] Author: JENNA BURGOS APRN.BOARDING SPECIALIST Service: Anesthesiology Author Type: Nurse Airline Counter Agent Type: Anesthesia Procedure Notes Filed: 09/01/2023 13:21 Note Text: ANESTHESIOLOGY PROCEDURE NOTE Airway General Information Procedure Start Time/Medication Administration: 09/01/2023 1:06 PM Procedure End Time: 09/01/2023 1:07 PM Patient location during procedure: OR Timeout Performed Pre-procedure: timeout performed Consent Obtained: Yes Patient identity confirmed: arm band and patient Staffing Anesthesiologist: Gordo Bazan MD BOARDING SPECIALIST: Jenna Burgos APRN.BOARDING SPECIALIST Performed by: BOARDING SPECIALIST Indications and Patient Condition Indications for airway [...] attempts at approach: 1 SIGNATURE: Jenna Burgos APRN.CRNA PATIENT NAME: Keke Pemberton DATE: September 01, 2023 TIME: 1:20 PM CSN: [id number] [facility] NoteHNO ID: [id number] Author: LUKE SILVA RN Service: Nursing Author Type: Registered Nurse Type: Nursing Progress Note Filed: 09/01/2023 12:53 Note Text: Sitter and motorcycle police at bedside, patient handcuffed to bed all extremitiies [facility]05-06-2024 NoteHNO ID: [id number] Author: KORI EPSTEIN APRN.CNP Service: Neurology General Author Type: Nurse Practitioner [...] with any questions or concerns. Kori Epstein APRN.BRUSH HOLDER INSPECTOR Nurse Practitioner, Neurocritical Care Pager: [phone] September 01, 2023 11:26 [facility]05-06-2024 NoteHNO ID: [id number] Author: RACHEL MARCIAL CPhT Service: Pharmacy Author Type: Inside Sales Supervisor Type: Plan of Care Filed: 09/01/2023 10:04 Note Text: PHARMACY BEDSIDE DELIVERY SERVICE Patient Name: Keke Pemberton The marked outpatient medications were Filled at: [place] and delivered to the patient's bedside to Deputy Delvalle #[id number] as pt being dc to longterm Medication List START taking these medications levETIRAcetam 750 mg tablet Commonly known as: KEPPRA Take 1 tablet by mouth two times a day. Rachel Marcial [facility] PAGER: Rachel Marcial [phone] 09/01/23 10:04 AM September 01, 2023 10:03 [facility]05-05-2024 NoteHNO ID: [id number] Author: MALCOLM MICHAEL MD Service: Hospital Medicine Author Type: Physician Type: Progress Notes Filed: 08/31/2023 09:50 Note Text: DEPARTMENT OF HOSPITAL MEDICINE PROGRESS NOTE SERVICE DATE: 08/31/2023 SERVICE TIME: 9:46 AM Hospital Medicine/Primary Attending: Malcolm Michael MD NIGHT AND WEEKEND COVERAGE: After 7pm please page [phone] SUBJECTIVE: Follow up for Foreign Body Ingestion. [...] await psych eval - Will discharge to jail VTE Prophylaxis: As per primary team Disposition: To be determined Plan of care discussed with: Provider, RN, Patient SIGNATURE: Malcolm Micheal MD PATIENT NAME: Keke Pemberton DATE: August 31, 2023 TIME: 9:46 AM PAGER/CONTACT #: My Pager. Page [phone] after 7PM, as my pager is off.[facility] NoteHNO ID: [id number] Author: DOMO PRUETT DO Service: Critical Care Author Type: Resident Type: Plan of Care Filed: 08/30/2023 15:12 Note Text: When patient is ready to be discharged back to longterm, please get in touch with Jenny from [facility] at [phone] to arrange outpatient medication. Domo Pruett DO PGY-1 CCAG ED [facility]identNorthern [facility]05-04-2024 NoteHNO ID: [id number] Author: NOREEN PADRON MD Service: Neurology ICU Author Type: Physician Type: Progress Notes Filed: 08/30/2023 13:18 Note Text: SERVICE DATE: 08/30/2023 SERVICE TIME: 1:17 PM NEURO ICU PROGRESS NOTE DATE OF ADMISSION: 08/28/2023 Subjective Hospital Course: 08/28: S/S suspicious for seizure - KEppra started , adding MRI prior to discharge [...] commands Total: 14 Pt resting in bed. aircraft electronics technical officer and RN at bedside pt is [...] Is Patient Clinically Ready to Transfer to [facility] or [facility]U?: Yes, transfer to SDU or [facility] today Discharge Planning: Other - Specify Prevention: [...] presents after swallowing a razor blade in longterm. Per chart review- pt has had multiple hospitalizations for swallowing foreign objects in order to get out of longterm, in the ED pt denied SI stating [...] Problems as of 08/30/2023 Noted - Resolved POA Hospital Seizure-like activity (HCC) 08/29/2023 - Present [...] mg SUBCUTANEOUS EVERY 24 HOURS Given, 08/29 0846 08/29/23 0954 -- 08/28/23 191 vte pharmacologic prophylaxis contraindicated (ky,oh) 08/28/231914 pneumatic compression stockings (ky,oh) 08/28/231914 activity - mobilize patient (ky,mn) VTE Prophylaxis: VTE prophylaxis appropriate Plan of care discussed with: Provider, RN, Patient and ICU Team STAFF COORDI (more content not included)...[facility] 08-30-2023 NoteHNO ID: [id number] Author: KASSY REYES MD Service: Critical Care Author Type: Physician Type: Progress Notes Filed: 08/30/2023 13:25 Note Text: [facility] STAFF PHYSICIAN NOTE OF PERSONAL INVOLVEMENT IN [...] kg/m? Vent Settings: O2 Therapy: Room Air (08/30/23842) Invasive Ventilator Mode (Select One): A/C PRVC [...] Staph PCR: Negative IMAGING: Repeat CT Brain 3 (After 2nd fall) IMPRESSION: No evidence of acute intracranial process Repeat CT cervical Spine 3 (After 2nd fall) IMPRESSION: No evidence of [...] possibly in the stomach. Correlate clinically. CXR / IMPRESSION: Lines, tubes, and devices: Interval placement [...] Choice of Sedation and (more content not included)...[facility]05-04-2024 NoteHNO ID: [id number] Author: KASSY REYES MD Service: Critical Care [...] bodies - Tobacco use Patient presented to [facility] with complaints of foreign body ingestion. Patient states that he has been incarcerated for the last week in the [facility] and has not had access to [...] He states he follows with psych in [place], [place]. Of note, there are no recent [...] given that we are monitoring status through pvc monitor, pulse ox, EEG, and morning labs. [...] ml LABORATORY: BLOOD GAS: CBC: Recent Labs 08/30/2352008/29/23151108/29/23 0508/28/23 1845 WBC 10.28 12.86* 13.72* 10.96 HB 15.9 16.2 15.3 15.6 HCT 46.7 47.0 44.6 46.5 PLT 246 317 272 274 MCV 87.6 88.2 88.0 88.6 RDWCV 13.3 12.9 13.5 12.9 COAG: No results for input(s): APTT, INR in the last 168 hours. CMP: Recent Labs 08/30/2352008/29/23151108/29/23 1227 08/29/2352508/28/23 1845 GLUC 92 207* -- 97 105* [...] patch, , AT BEDTIME (more content not included)...[facility]05-03-2024 NoteHNO ID: [id number] Author: DOMO PRUETT DO Service: Critical Care [...] ordered. Domo Pruett DO PGY-1 CCAG ED ResidentNorthern [facility] Blue Hill [facility]05-03-2024 NoteHNO ID: [id number] Author: SHANITA PINA RPh Service: Pharmacy Author Type: Pharmacist Type: Plan of Care Filed: 09/01/2023 11:00 Note Text: PHARMACY MEDICATION REVIEW Patient Name: Keke Pemberton : 1990 The following medications were updated within the SKIDDER medication list: Medications ADDED to SKIDDER medication list Medications CHANGED on SKIDDER medication list Medications REMOVED from SKIDDER medication list buprenorphine-naloxone (SUBOXONE) 8-2 mg film [...] medication history: Yes Medication history completed by: Saw Runner: Stacey Webster (Outside Installation Machinist) Source of history: Patient: Reliability of source: Appears reliable, clearly identified: Indications, Pharmacy records: e-scripts/dispense report, [facility] [phone], and [facility] records Medication nonadherence identified: No barriers noted Reconciliation completed: Yes Completed by: Shanita Pina PharmD, [facility] Nursing Unit Based Pharmacist Ext: [phone] All SKIDDER medications addressed by LIP Patient interested in Bedside Delivery Services or using OP Pharmacy at discharge? Unable to assess Preferred outpatient pharmacy: [id number] [place] [address] - [address] [phone] [address] [facility] Allergies: No Known Allergies None Stacey Webster ([employer])[id number] 08/29/2023 I have reviewed and agree with the medication history note completed by the medication historian as documented above. All medications reviewed and reconciled appropriately. Shanita White PharmD, [facility] Nursing Unit Based Pharmacist Ext: [phone] Light Blue Hill Hospital05-03-2024 NoteHNO ID: [id number] Author: RAJNI MULLER RN Service: Care Management Author Type: Registered Nurse Type: Care Mgt Progress Note Filed: 08/29/2023 10:06 Note Text: CARE MANAGEMENT PROGRESS NOTE SERVICE DATE: 08/29/2023 SERVICE TIME: 9:59 AM LOS: 1 day Pt from [facility]. Pt perfume compounder supervision and handcuffed to bed. DC plan to return to longterm today. Defer assessment d/t rec of Logistics System Engineer to not discuss DC planning as it causes pt to act out to behave in ways to avoid returning to longterm. SIGNATURE: Rajni Muller RN PATIENT NAME: Keke Pemberton DATE: August 29, 2023 TIME: 9:59 AM PAGER/CONTACT #: [phone]-2023 NoteHNO ID: [id number] Author: DOMO PRUETT DO Service: Critical Care [...] lactate, VBG ordered post event. Domo Pruett PGY-[address] [facility]05-03-2024 NoteHNO ID: [id number] Author: KASSY REYES MD Service: Critical Care Author Type: Physician Type: Progress Notes Filed: 08/29/2023 15:58 Note Text: [facility] STAFF PHYSICIAN NOTE OF PERSONAL INVOLVEMENT IN [...] up from bed (stood after sleeping per motorcycle police in room) and fell to floor with [...] Pain Pain adequately controlled?: (more content not included)...[facility]05-03-2024 NoteHNO ID: [id number] Author: KASSY REYES MD Service: Critical Care Author Type: Physician Type: Progress Notes Filed: 08/29/2023 15:53 Note Text: MICU PROGRESS NOTE PATIENT NAME: Keke Pemberton REASON FOR ADMISSION: Swallowed 2 Razor Blades LOS: 1 Subjective HPI Mr. Keke Pembertno is a 33 year old male with PMH: - Bipolar disorder on bupropion, carbamazepine (no recent documented fills) - ADHD - Anxiety disorder - History of swallowed foreign bodies - Tobacco use Patient presented to [facility] with complaints of foreign body ingestion. Patient states that he has been incarcerated for the last week in the [facility] and has not had access to [...] He states he follows with psych in [place], [place]. Of note, there are no recent [...] LABORATORY: BLOOD GAS: CBC: Recent Labs 08/29/23 0508/28/23 1845 WBC 13.72* 10.96 HB 15.3 15.6 HCT 44.6 46.5 PLT 272 274 MCV 88.0 88.6 RDWCV 13.5 12.9 COAG: No results for input(s): APTT, INR in the last 168 hours. CMP: Recent Labs 08/29/23 0508/28/23 1845 GLUC 97 105* NA 138 140 [...] MEDICATIONS: IV infusions:propofol infusion, Last Rate: Stopped (08/28/238) fentaNYL Scheduled medications:nicotine, 1 Patch, DAILY And [...] Ventilator Mode (Select One): (more content not included)...[facility]05-02-2024 NoteHNO ID: [id number] Author: INO UNDERWOOD MD Service: Critical Care [...] attending's direction Informed Consent Consent Obtained: Verbal [place]nell Protocol A moment to CARE was completed. [...] Pemberton DATE: August 28, 2023 TIME: 9:04 [facility]05-02-2024 NoteHNO ID: [id number] Author: INO UNDERWOOD MD Service: Critical Care Author Type: Physician Type: Progress Notes Filed: 08/28/2023 22:00 Note Text: [facility] STAFF PHYSICIAN NOTE OF PERSONAL INVOLVEMENT IN [...] procedures. SIGNATURE: Ino Underwood MD [facility] PAGER:[phone] DATE of SERVICE: [facility] 27[facility] Emergency department Note* Junior Hopkins RN - 08/22/2023 8:33 PM EDT Below are additional resources that you may find beneficial in your treatment: 12-Step: Heroin Anonymous: Tao Corrales.: [phone], Danielito Bardales: [phone] Narcotics Anonymous: 888-GET_HOPE (351-321-9404) Flipitureeye.org Alcohol Anonymous: akronaa.org Miguel Anon: [phone]: 12-step program for families & friends of people with addiction. CRISIS: Homeless Hotline: 811.152.4930 [facility]) 18/11 line-18/11 OFFICE: [phone] [facility]: [address] [place] [address] [phone] (24 Hours) Domestic Violence help line anytime: 634.640.9634 Crisis Hotline: 18/11- 164.107.5604 ADM Addiction Helpline: 922.588.1809 (available 8:30 AM to 4:00 PM ) 2-1-1 2-1-1 helps people across [facility] find local resources when they don't know where to turn forhel. We are available 24 hours a day, 7 days a week. For help, simply dial 2-1-1 to speak to one of our trained professionals. Methadone Treatment: [facility] [place], [place] [phone] [place], [place] [phone] [facility] - [place], [place] [phone] [facility] - [place], [place] [phone] [facility] [place] - [phone] ext. [phone] or [phone] [facility] - [place], [place] [phone] [facility] Services ([place]) [phone] DETOX TREATMENT: [facility] Services, [place], [place] [phone] /ADM Crisis Center: anytime @ [phone] for alcohol & drug addiction help. [facility] coordination: [phone] (Medicare not accepted) [facility] [place]: [phone] [place], [place]: [phone], [facility] [place]: [phone] [place], [place] [phone] Adolescent detox [place], [place] [phone] [facility] [place], [place]: [phone] [facility], [place], [place] [phone] ext. [phone] [place], [place] (pt. must be medically cleared prior to admission in ED) [facility], [place], [place] [phone] OUTPATIENT TREATMENT: [facility] @ [place], [place] [phone]. 1st Step MAT Program @ [facility] ED: [phone] 1st Step MAT Program @ [facility] ED: [phone] 1st Step MAT Program @ [facility] ED: [phone] Intensive Outpatient Programs- [place], [place] [phone] [place], [place] [phone] [facility] [place] [phone] [facility]: [place], [place] [phone] or [phone]. [facility]: [phone] [facility], [place]: [phone], [place]: [phone] [facility], [place], [place]: [phone] [facility], [place]: [phone], [place]: [phone] [facility] [place]. [place]: [phone] [facility], [place], [place] [phone] Behavioral Health Services: [facility]: Oapir-[phone], [facility]-[phone], [place]- [phone] [facility] Health, [place]: [phone], [place]: [phone] [facility], [place], [place] [phone] [facility], [place], [place] [phone] RESIDENTIAL TREATMENT FACILITIES: [facility]: inpt. Or outpt. - [phone] [facility], [place], [place] [phone] [place], [place] [phone] [facility] tx, [place], [place] [phone] (admission coordinated by -Lurdes Pagan ext [phone]) [facility], [place], [place]: [phone]; Men's services inpt. & women services -Outpt. [place], [place] [phone] [facility], [facility], [place], [place] [phone] [facility], [place], [place] [phone] [facility], [place], [place] [phone] [facility], [place], [place] [phone] [facility] - [place], [place] [phone] [facility], [place], [place] [phone] [place], [place] [phone] OTHER SERVICES: ANPI - Peer Coroner'S Juror Service: [phone] [employer]: [phone] ext. [phone] Medicaid Health Coverage: [facility]: [phone] Junior Hopkins RN 08/22/232033 [facility] CenterMhgsot97-87-7684 Emergency department Note* Junior Hopkins RN - 08/22/2023 8:33 PM EDT Below are additional resources that you may find beneficial in your treatment: 12-Step: Heroin Anonymous: Tao Donald: [phone], Danielito Bardales: [phone] Narcotics Anonymous: 888-GET_HOPE (166-475-9193) [employer]Rebelle Alcohol Anonymous: Vish[employer] Groupronaa.org Imguel Anon: [phone]: 12-step program for families & friends of people with addiction. CRISIS: Homeless Hotline: 456.617.3908 [facility]EL[facility] 18/11 line-18/11 OFFICE: [phone] [facility]: [address] [place] [address] ([phone] (24 Hours) Domestic Violence help line anytime: 500.222.8347 Crisis Hotline: 18/11- 472.315.7395 ADM Addiction Helpline: 455.411.9530 (available 8:30 AM to 4:00 PM ) 2-1-1 2-1-1 helps people across [facility] find local resources when they don't know where to turn forhelp. We are available 24 hours a day, 7 days a week. For help, simply dial 05-29-1 to speak to one of our trained professionals. Methadone Treatment: [facility] [place] [phone] [place], [place] [phone] [facility] [place], [place] [phone] [facility] [place], [place] [phone] [facility] [place] - [phone] ext. [phone] or [phone] [facility] [place], [place] [phone] [facility]. Services ([place]) [phone] DETOX TREATMENT: [facility], [place], [place] [phone] /ADM Crisis Center: anytime @ [phone] for alcohol & drug addiction help. [facility] coordination: [phone] (Medicare not accepted) [facility] [place]: [phone] Day, [facility] [place]: [phone], [place], [place]: [phone] [place], [place] [phone] Adolescent detox [place], [place] [phone] [facility] [place], [place]: [phone] [facility], [place], [place] [phone] ext. [phone] [place], [place] (pt. must be medically cleared prior to admission in ED) [facility] [place], [place] [phone] OUTPATIENT TREATMENT: [facility] @ [place], [place] [phone]. 1st Step MAT Program @ [facility] ED: [phone] 1st Step MAT Program @ [facility] ED: [phone] 1st Step MAT Program @ [facility] ED: [phone] Intensive Outpatient Programs- [place], [place] [phone] [place], [place] [phone] [facility] [place] [phone] [facility]: [place], [place] [phone] or [phone]. [facility]: [phone] [facility]: [phone], [place]: [phone] [facility] [place]: [phone] [facility] Behavioral [facility]: [phone], [place]: [phone] [facility]. [place]: [phone] [facility], [place], [place] [phone] Behavioral Health Services: [facility]: Afnjg-[phone], [place]/Lfd[place]q-[phone], [place]- [phone] [facility] Health, [place]: [phone], [place]: [phone] [facility], [place], [place] [phone] [facility], [place], [place] [phone] RESIDENTIAL TREATMENT FACILITIES: [facility] House: inpt. Or outpt. [phone] [facility], [place], [place] [phone] [place], [place] [phone] [facility] tx, [place], [place] [phone] (admission coordinated by ADM Michelle Pagan ext [phone]) [facility], [facility] [place]: [phone]; Men's services inpt. & women services -Outpt. [place], [place] [phone] [facility], [place] [phone] [place] [phone] [facility], [place], [place] [phone] [facility], [place], [place] [phone] [facility] - [place], [place] [phone] [facility], [place], [place] [phone] [place] [phone] OTHER SERVICES: ANPI - Peer Coroner'S Juror Service: [phone] [facility]: [phone] ext. [phone] Medicaid Health Coverage: [facility]. JFS: [phone] Junior Hopkins RN 08/22/232033 * Junior Hopkins RN - 08/22/2023 8:31 PM EDT Project NADINE is available STATE-WIDE. Narcan/Naloxone is available WITHOUT prescription at most [place] [facility], including [facility], [facility], [facility], [facility], and others. It has a cost, but there is a free program through [facility] (and 47 other [facility]). A full list of pharmacies is available at the [place] [employer] website, but calling your local pharmacy is likely to be successful. You can buy it for $50-100 (insurance may cover it) and have it ready for another person. What is Lj MCCOY? Lj MCCOY is a community-based drug overdose [...] Lj MCCOY is an initiative of the [facility] Opiate Task Force and is funded in part by the [facility] Alcohol, Drug Addiction and Mental Health (ADM) Services [facility] Alcohol, Drug Addiction & Mental Health Services [place] [address] www.[facility].org WALK-IN HOURS: Tuesdays (every hour) from 3pm - 6pm THIS IS A FREE SERVICE TO ALL PARTICIPANTS Deaths Avoided With Naloxone A community-based drug overdose prevention and education project Emergency first aid for a suspected opioid overdose: If a person is exhibiting symptoms of an opioid overdose, these following life- saving measures should be taken immediately: Check to see if they can respond Give them a light shake, yell their name. Any response? If you don't get a response, try a STERNUM RUB (rub your knuckles in the middle of their chest where the ribs meet for 10 seconds). Call 9-1 You do not need to mention drugs [...] Give Naloxone Assemble the nasal spray Naloxone. [place] half (1 ml) up one nostril, half [...] off and the victim could start to overdoseagain. What is Naloxone? Naloxone (also known as Narcan) is a medication that can reverse an overdose that is caused by an opioid drug. When administered during an overdose, Naloxone blocks the effects of opioids on the brain and restores breathing within two to eight minutes. Naloxone has been used safely by emergency medical driver for more than 40 years and has [...] tolerance can decrease rapidly when someone has takena break from using a substance whether intentionally (in treatment) or unintentionally (in longterm or the hospital). Taking opioids after a [...] dysfunction, heart disease or HIV/AIDS are also atan increased risk of an overdose. Previous Overdose A person who has experienced a nonfatal overdose in the past, has an increased risk of a fatal overdose in the future. Junior Hopkins RN 08/22/232030 * Stephy Glover MD - 08/22/2023 8:05 PM EDT EMERGENCY DEPARTMENT ENCOUNTER Pt Name: Keke Pemberton [...] EMS and law enforcement after reportedly running [place].Patient states that he feels like he is withdrawing from fentanyl and is requesting Suboxone. He sta lynda that his last use was 3 days [...] as well as an aid in the diagnosisof deep vein thrombosis (DVT). DRUGS OF ABUSE [...] symptomatic relief. Patient was discussed with addiction care companion. Heart score of 1 due to risk factors but low clinical suspicion. Low Wells score with a negative D-dimer making dissection or embolic disease unlikely. Chest x- ray was unremarkable. Troponin was normal. Patient discharged in stable improved condition in the custody of law enforcement. ED Course as of 08/22/232116Aug 22, 20232034 Discussed with addiction care companion who plans to provide patient with resources to facilitate outpatient Suboxone. Agreed with plan to treat symptomatically with tramadol do not trust the patient's reported withdrawal symptoms and concern for precipitating withdrawal causing harm to the patient. [SP] 2100 Auto WBC: 9.3 [SP] 2100 HEMOGLOBIN: 14.0 [SP] 2100 eGFR: >90.0 [SP] 2100 TROPONIN I: <0.012 [SP] 2099 D-DIMER, INNOVANCE: 0.37 [SP] 2101 XR chest 1 view IMPRESSION: No radiographic acute cardiopulmonary process. [SP] ED Course User Index [SP] Stephy Glover MD Diagnoses as of 08/22/232116 Chest pain, unspecified type Opiate use PROCEDURES: Unless otherwise noted below, none Procedures FINAL IMPRESSION 1. Chest pain, unspecified type 2. Opiate use DISPOSITION Discharge 08/22/2023 09:02:25 PM PATIENT REFERRED TO: Clara Karimi DO [address] [place] [address] Schedule an appointment as soon as possible for a visit [facility] [address] [place] [address] Schedule an appointment as soon as possible for a visit [facility] ED [address] [place] [address] Go to As needed, If symptoms worsen DISCHARGE MEDICATIONS: New Prescriptions No medications on file (Comment: Please note this report has been produced using speech recognition software and may contain errors related to that system including errors in grammar, punctuation, and spelling, as well as words and phrases that may be inappropriate. If there are any questions or concerns please feel freeto contact the dictating provider for clarification.) Stephy Glover MD (electronically signed) Emergency Medicine Provider Stephy Glover MD 08/22/232147 * Lorena Yost RN - 08/22/2023 8:05 PM EDT States pain started a couple days ago, [...] 1 gm per day. documented in this [facility]04-26-2024 Emergency department Note* Junior Hopkins RN - 08/22/2023 8:31 PM EDT Project NADINE is available STATE-WIDE. Narcan/Naloxone is available WITHOUT prescription at most [place] [facility], including [facility], [facility], [facility], [facility], and others. It has a cost, but there is a free program through [facility] (and 47 other [facility]). A full list of pharmacies is available at the [place] Board [employer] website, but calling your local pharmacy is likely to be successful. You can buy it for $50-100 (insurance may cover it) and have it ready for another person. What is Project NADINE? Project NADINE is a community-based drug overdose prevention and [...] Lj MCCOY is an initiative of the [facility] Opiate Task Force and is funded in part by the [facility] Alcohol, Drug Addiction and Mental Health (ADM) Services [facility] Alcohol, Drug Addiction & Mental Health Services [place] [address] [email or web address] WALK-IN HOURS: Tuesdays (every hour) from 3pm - 6pm THIS IS A FREE SERVICE TO ALL PARTICIPANTS Deaths Avoided With Naloxone A community-based drug overdose prevention and education project Emergency first aid for a suspected opioid overdose: If a person is exhibiting symptoms of an opioid overdose, these following life- saving measures should be taken immediately: Check to [...] Give Naloxone Assemble the nasal spray Naloxone. [place] half (1 ml) up one nostril, half [...] off and the victim could start to overdoseagain. What is Naloxone? Naloxone (also known as Narcan) is a medication that can reverse an overdose that is caused by an opioid drug. When administered during an overdose, Naloxone blocks the effects of opioids on the brain and restores breathing within two to eight minutes. Naloxone has been used safely by emergency medical driver for more than 40 years and has [...] An overdose is a medical emergency! Call 9--1 immediately and begin first aid. What are [...] tolerance can decrease rapidly when someone has takena break from using a substance whether intentionally (in treatment) or unintentionally (in longterm or the hospital). Taking opioids after a [...] dysfunction, heart disease or HIV/AIDS are also atan increased risk of an overdose. Previous Overdose A person who has experienced a nonfatal overdose in the past, has an increased risk of a fatal overdose in the future. Junior Hopkins RN 08/22/232030 [place] [id number] Emergency department Triage note* Lorena Yost RN - 08/22/2023 8:05 PM EDT States pain started a couple days ago, [...] Reports using about 1 gm per day. [place] [id number] Physician Emergency department Note* Stephy Glover MD - 08/22/2023 8:05 PM EDT EMERGENCY DEPARTMENT ENCOUNTER Pt Name: Keke Pemberton [...] EMS and law enforcement after reportedly running eloping.Patient states that he feels like he is withdrawing from fentanyl and is requesting Suboxone. He sta lynda that his last use was 3 days [...] as well as an aid in the diagnosisof deep vein thrombosis (DVT). DRUGS OF ABUSE [...] symptomatic relief. Patient was discussed with addiction care companion. Heart score of 1 due to risk factors but low clinical suspicion. Low Wells score with a negative D-dimer making dissection or embolic disease unlikely. Chest x- ray was unremarkable. Troponin was normal. Patient discharged in stable improved condition in the custody of law enforcement. ED Course as of 08/22/232116Aug 22, 20232034 Discussed with addiction care companion who plans to provide patient with resources to facilitate outpatient Suboxone. Agreed with plan to treat symptomatically with tramadol do not trust the patient's reported withdrawal symptoms and concern for precipitating withdrawal causing harm to the patient. [SP] 2100 Auto WBC: 9.3 [SP] 2100 HEMOGLOBIN: 14.0 [SP] 2100 eGFR: >90.0 [SP] 2099 TROPONIN I: <0.012 [SP] 2099 D-DIMER, INNOVANCE: 0.37 [SP] 2101 XR chest 1 view IMPRESSION: No radiographic acute cardiopulmonary process. [SP] ED Course User Index [SP] Stephy Glover MD Diagnoses as of 08/22/232116 Chest pain, unspecified type Opiate use PROCEDURES: Unless otherwise noted below, none Procedures FINAL IMPRESSION 1. Chest pain, unspecified type 2. Opiate use DISPOSITION Discharge 08/22/2023 09:02:25 PM PATIENT REFERRED TO: Clara Karimi DO [address] [place] [address] Schedule an appointment as soon as possible for a visit [facility] [address] [place] [id number] Schedule an appointment as soon as possible for a visit [facility] ED [address] [facility] [address] Go to As needed, If symptoms worsen DISCHARGE MEDICATIONS: New Prescriptions No medications on file (Comment: Please note this report has been produced using speech recognition software and may contain errors related to that system including errors in grammar, punctuation, and spelling, as well as words and phrases that may be inappropriate. If there are any questions or concerns please feel freeto contact the dictating provider for clarification.) Stephy Glover MD (electronically signed) Emergency Medicine Provider Stephy Glover MD 08/22/232147 [facility]14 NoteHNO ID: [id number] Author: Clara Karimi DO Service: Psychiatry Author [...] DAILY (8 PM) oxymetazoline 0.05 % 1 [place] (GENASAL) 1 [place] EACH NOSTRIL BID PRN DATA: Diagnostic tests [...] Abs Lymph 1.00 - 4.00 k/uL 1.88 Fleming% % 9.8 Abs Fleming <0.87 k/uL 0.81 Eosin% % 2.2 Abs [...] <5.10 2.22 LDL Cholestero (more content not included)...[facility] HospitalGvcenpan46-57-1660 NoteHNO ID: [id number] Author: Clara Karimi DO Service: Psychiatry Author [...] Abs Lymph 1.00 - 4.00 k/uL 1.88 Fleming% % 9.8 Abs Fleming <0.87 k/uL 0.81 Eosin% % 2.2 Abs [...] (Ag/Ab) Nonreactive Nonreactiv (more content not included)... [facility] HospitalLuucjtct76-49-9837 NoteHNO ID: [id number] Author: Talita Deleon MD Service: Process Group Author Type: Physician Type: Progress Notes Filed: 04/25/2023 9:49 AM Note Text: [id number] Lake Joint [facility] Memorial HospitalJmffrmth54-19-7431 NoteHNO ID: [id number] Author: Note, Interface Service: ? Author Type: ? Type: Progress Notes Filed: 02/08/2023 5:28 AM Note Text: Epic Scheduled Downtime: 02/08/2023 1:00:00 AM to 02/08/2023 1:28:00 [facility]10-14-2023 NoteHNO ID: [id number] Author: Note, Interface Service: ? Author Type: ? Type: Progress Notes Filed: 02/08/2023 4:59 AM Note Text: Epic Scheduled Downtime: 02/08/2023 1:00:00 AM to 02/08/2023 1:28:00 [facility]10-14-2023 NoteHNO ID: [id number] Author: Note, Interface Service: ? Author Type: ? Type: Progress Notes Filed: 02/08/2023 3:04 AM Note Text: Epic Scheduled Downtime: 02/08/2023 1:00:00 AM to 02/08/2023 1:28:00 [facility]Tfq[facility]q78-[facility]-4222 NoteHNO ID: [id number] Author: Leonor Prince RN Service: Care Management Author Type: Registered Nurse Type: Care Mgt Progress Note Filed: 01/06/2023 8:45 AM Note Text: CARE MANAGEMENT DISCHARGE NOTE SERVICE DATE: January 06, 2023 SERVICE TIME: 8:43 AM Admission Date: 01/03/2023 LOS: 0 days Discharge Arrangement Discharge Arrangement: Penitentiary/Police Services Arranged Medical Services: Other: See Comment (N/A) Provider Name: [facility] Caregiver Assessment Caregiver is ready, willing and able to meet the patient's needs as recommended by the inter-professional team: Yes Name of Caregiver: [facility] Transportation Arrangements Transportation Arrangements: Car Destination: [facility]iary Handoff Communication: Handoff to: Other Caregiver Other Caregiver Name/Phone: [facility] [phone] Additional Information: Patient discharged back to [facility]. Security watching the patient due to him telling the bedside sitter he is going to run out of here. Sgt. with [facility] notified. [facility] will provide DC transportation. SIGNATURE: Leonor Prince RN PATIENT NAME: Keke Pemberton DATE: January 06, 2023 TIME: 8:43 AM CONTACT #: [phone]09-10-2023 Note HNO ID: [id number] Author: Nathan Appiah MD Service: Hospital Medicine Author Type: Physician Type: Progress Notes Filed: 01/05/2023 4:11 PM Note Text: DEPARTMENT OF HOSPITAL MEDICINE PROGRESS NOTE SERVICE DATE: 01/05/2023 SERVICE TIME: 4:08 PM Hospital Medicine/Primary Attending: Nathan Appiah MD NIGHT AND WEEKEND COVERAGE: After 7pm please page [phone] CHIEF COMPLAINT: Follow-up for patient with ingestion [...] TID PRN sodium chloride 0.65 % 2 [place] 2 [place] EACH NOSTRIL PRN prochlorperazine 10 mg injection [...] reviewed for today's visit: CBC: Recent Labs 01/05/23610 WBC 13.38* RBC 4.56 HB 13.6 HCT 40.7 PLT 206 MCV 89.3 MCH 29.8 MPV 9.3 Coags: No results for input(s): PT, INR, APTT in the last 24 hours. BMP: Recent Labs 01/05/23 06 NA 142 K 3.8 CHLOR 106* CO2 25 BUN 9 CREAT 0.74 GLUC 91 CMP: Recent Labs 01/05/23610 NA 142 K 3.8 CHLOR 106* CO2 25 BUN 9 CREAT 0.74 GLUC 91 TPROT 6.2* CA 8.9 TBILI 0.2 ALKPHOS 100 ALT 37 AST 17 ANION 11 Cardiac Enzymes: No results for input(s): CK, MB, CKMB, TROPT in the last 24 hours. Liver Function, Amylase, Lipase: Recent Labs 09/10/23 0611 TPROT 6.2* ALB 4.1 ALT 37 [...] 2023 TIME: 4:08 PM PAGER/CONTACT #: [facility] 01-05-2023 NoteHNO ID: [id number] Author: Angel Braun MD Service: Gastroenterology Author [...] TID PRN sodium chloride 0.65 % 2 [place] 2 [place] EACH NOSTRIL PRN prochlorperazine 10 mg injection [...] imaging results. Impression/Recommendations cont metamucil bid serial kub mental health eval on this admission SIGNATURE: Angel Braun MD PATIENT NAME: Keke Pemberton DATE: January 05, 2023 TIME: 12:33 [facility]09-09-2023 NoteHNO ID: [id number] Author: Nighat Esqueda LSW Service: Care Management Author Type: Irrigation Foreman Type: Care Mgt Progress Note Filed: 01/04/2023 3:14 PM Note Text: CARE MANAGEMENT PROGRESS NOTE SERVICE DATE: 01/04/2023 SERVICE TIME: 3:10 PM LOS: 0 days SW was consulted due to patient being transported [facility]. [facility] SW attempted to see patient who was in OR. RN stated that longterm will provided transport for patient back to longterm once discharged. Contact number [phone]. SW will continue to follow clinical course. SIGNATURE: RICHELLE Roberts PATIENT NAME: Kkee Pemberton DATE: January 04, 2023 TIME: 3:10 PM PAGER/CONTACT #: [phone]09-09-2023 NoteHNO ID: [id number] Author: Nathan Appiah MD Service: Hospital Medicine Author Type: Physician Type: Progress Notes Filed: 01/04/2023 2:47 PM Note Text: DEPARTMENT OF HOSPITAL MEDICINE PROGRESS NOTE SERVICE DATE: 01/04/2023 SERVICE TIME: 2:41 PM Hospital Medicine/Primary Attending: Nathan Appiah MD NIGHT AND WEEKEND COVERAGE: After 7pm please page [phone] CHIEF COMPLAINT: Follow-up for ingestion of foreign [...] 2023 TIME: 2:41 PM PAGER/CONTACT #: [facility] 01-04-2023 NoteHNO ID: [id number] Author: Alissa Alejandra APRN.CRNA Service: Anesthesiology Author Type: Nurse Airline Counter Agent Type: Anesthesia Procedure Notes Filed: 01/04/2023 1:05 PM Note Text: ANESTHESIOLOGY PROCEDURE NOTE Airway General Information Procedure Start Time/Medication Administration: 01/04/2023 1:03 PM Patient location during procedure: OR Timeout Performed Pre-procedure: timeout performed Consent Obtained: Yes Patient identity confirmed: arm band and patient Staffing BOARDING SPECIALIST: Alissa Alejandra APRN.BOARDING SPECIALIST Performed by: BOARDING SPECIALIST Indications and Patient Condition Indications for airway [...] 1 Airway not difficult SIGNATURE: Alissa Alejandra APRN.BOARDING SPECIALIST PATIENT NAME: Keke Pemberton DATE: January 04, 2023 TIME: 1:05 PM CSN: [id number] [address]-09-2023 NoteHNO ID: [id number] Author: Kaveh Hager DO Service: Psychiatry Author Type: Resident Type: Plan of Care Filed: 01/04/2023 11:42 AM Note Text: Patient not on floor, in operating room when psychiatry attempted to see patient. Will attempt to see again tomorrow. Psychiatry consulted due to patient request in setting of continuously swallowing foreign objects while in longterm.[facility]09-09-2023 NoteHNO ID: [id number] Author: Amy Herzog DO Service: Hospital Medicine [...] patients care. The LIP should follow the [facility] patient management guidance referenced below (can be pasted into browser): Against Medical Advice ( AMA ) Policy https://Tandem.[employer]Vision.[employer] International/docview/?zxgui=6402 Against Medical Advice ( AMA ) Attachment A- Evaluation of Capacity https://Tandem.SERPs/docview/?kglzl=0057 Against Medical Advice ( AMA ) Attachment B- Release of Responsibility https://Tandem.SERPs/docview/?zjxty=7685 Patients Without Surrogate Standard Operating Procedure https://[email or web address]/docview/?wfuiz=76491 Signature: Amy Walters [facility]-2023 NoteHNO ID: [id number] Author: Amy Herzog DO Service: Hospital Medicine [...] leave AMA Amy Herzog DO 01/04/2023 12:32 [facility]08-31-2023 NoteHNO ID: [id number] Author: Malissa Leyva RN Service: Nursing Author Type: Registered Nurse Type: Nursing Progress Note Filed: 12/26/2022 12:22 PM Note Text: [facility] was call and requested to call them if Pt leaves AMA.[facility]08-31-2023 NoteHNO ID: [id number] Author: Quan Santoro APRN.BOARDING SPECIALIST Service: Anesthesiology Author Type: Nurse Airline Counter Agent Type: Anesthesia Procedure Notes Filed: 12/26/2022 11:42 AM Note Text: ANESTHESIOLOGY PROCEDURE NOTE Airway General Information Procedure Start Time/Medication Administration: 12/26/2022 11:40 AM Patient location during procedure: OR Staffing BOARDING SPECIALIST: Quan Santoro APRN.BOARDING SPECIALIST Performed by: BOARDING SPECIALIST and anesthesiologist Indications and Patient Condition Indications [...] at approach: 1 Airway not difficult SIGNATURE: Quan Santoro APRN.BOARDING SPECIALIST PATIENT NAME: Keke Pemberton DATE: December 26, 2022 TIME: 11:40 AM CSN: [id number]23 NoteHNO ID: [id number] Author: Leonor Prince RN Service: Care Management [...] 05, 2022 TIME: 10:27 AM CONTACT #: [phone] [facility]08-10-2023 NoteHNO ID: [id number] Author: Alexsander Henriquez RN Service: Nursing Author Type: Registered Nurse Type: Progress Notes Filed: 12/04/2022 10:48 PM Note Text: 2134 pt requesting more pain medication. Pt was medicated with 2mg of morphine at 2114. Pt advised that med was just given and is Q8H. Pt unhappy with answer. 2229 pt requesting cell phone. Pt is here for SI. Advised pt that due to circumstance, he could not have personal belongings. Pt agitated and requesting another nurse.[facility]08-09-2023 NoteHNO ID: [id number] Author: Amy Herzog DO Service: Hospital Medicine [...] patients care. The LIP should follow the [facility] patient management guidance referenced below (can be pasted into browser): Against Medical Advice ( AMA ) Policy https://Tandem.DigitalVision.[employer] International/docview/?lpuzm=4861 Against Medical Advice ( AMA ) Attachment A- Evaluation of Capacity https://Tandem.DigitalVision.[employer] International/docview/?kidxl=7922 Against Medical Advice ( AMA ) Attachment B- Release of Responsibility https://Tandem.SERPs/docview/?fszim=7854 Patients Without Surrogate Standard Operating Procedure https://ccf.DigitalVision.com/docview/?wwihj=86050 Signature: Amy Herzog, [facility]08-09-2023 Miscellaneous Notes* Behavorial Health Intake - Estela Loya LISW - 12/04/2022 2:09 PM EDT BEHAVIORAL HEALTH BRIEF INTAKE NOTE SERVICE DATE: 12/04/2022 SERVICE TIME: 2:14 PM Keke Pemberton is a 32 year old male with a Hx of ADHD brought in to [place] [facility] by police for after swallowing 2 razor blades 45 minutes prior to arrival. FULL CASE NOT PROCESSED DUE TO: Patient medically admitted Per [place] ED RN Ayde Butcher, Pt comes to ED via [facility] after swallowing 2 razor blades. Pt [...] damaging or endangering. Confirmed via discussion with [place] ED Attending Physician Dr. Rubia Hair, DO that patient will be admitted medically as he does have 2 razor blades in his stomach confirmed via x-ray imaging. DISPOSITION & PLAN: Admit patient: No Discharge Disposition: Medical Admission Is Patient Less Than 18 Years of Age or have a Guardian/Healthcare Power of Chuck Wagon Driver?: No Disposition Date: 12/04/22 Disposition Time: 1413 SIGNATURE: MELODY Lord PATIENT NAME: Keke Pemberton DATE: December 04, 2022 TIME: 2:14 PM [facility] Hospital Discharge instructions Patient Education 09/08/2021 22:12:27 Anxiety Reaction Anxiety Reaction Anxiety is the feeling we all get when we think something bad might happen. It is a normal responseto stress and usually causes only a mild [...] relieved by rest and mild pain reliever [id number] [employer]. [address] [place] [address]. All rights reserved. This information is not intended as a substitute for professional medical care. Always follow yourhealthcare professional's instructions. Follow Up Care 09/08/2021 21:33:27 With:PHIL GONCALVES Address: [address] [facility] [place] [address]- Business (1) When:2-4 days Comments:Follow-up with your doctor regarding anxiety for possible daily controller medications. Return if any worsening or concerning symptoms. [facility] Discharge summary Author Aisha Alves [facility] Note Date/Time January 26, 2025 10 :07am [facility] Medical Records Department [address] [place] [address] Emergency Department Summary 01/26/25 MR#: [id number] Acct: [id number] Name: KEKE PEMBERTON Rep #:[id number] : 1990 34 From: Aisha Alves DO PCP: Care Physician,No Primary Status :DEP ER Location: ED HPI History of Present Illness Chief Complaint: Palpitations Detail of Chief Complaint: Chest pain and palpitations Informant: patient Narrative Narrative: Patient presents with chest pain and palpitations that been going on for at least 6 months. States he was seen a few days ago in the emergency department and had an EKG that was unremarkable. Patient is concerned because his father had heart disease and patient believes he may have had heart attacks in his 30s but does not know if he had any heart stents as patient's father is currently . Patient denies recent travel or surgery. Denies recent illness. He describes at times having numbness and tingling in his right arm. He complains of exertional dyspnea at times. He has not taken his pulse when these palpitations are occurring and they can last up to an hour. PFSH PFS Medical History no medical history Home Medications ?Medication ?Instructions ?Recorded ?Last Taken ?Type lorazepam 1 mg tablet (Ativan) 1 mg PO TID PRN anxiety #10 tabs 01/26/25 Unknown Rx Allergy/AdvReac Type Severity Reaction Status Date / Time No Known Allergies Allergy Verified 01/26/25 07:46 Social History Smoking Status: Current every day smoker tobacco type: e-cigarettes ROS ROS ED Review of Systems ROS Unobtainable: other Constitutional Constitutional ED: Reports lethargy; Denies chills, fever(s), sweats or weight loss Eyes Eyes: Denies blurry vision, change in vision or diplopia ENT ENT ED: Denies rhinorrhea or sore throat Cardiovascular Cardiovascular: Reports chest pain, palpitations and racing heartbeat; Denies orthopnea Respiratory/Chest Respiratory/Chest: Reports dyspnea and dyspnea on exertion; Denies cough, orthopnea or sputum Gastrointestinal Gastrointestinal: Denies abdominal pain, diarrhea, nausea or vomiting Genitourinary Genitourinary ED: Denies dysuria, hematuria or urinary frequency Musculoskeletal Musculoskeletal: Denies arthralgias, back pain, myalgias or neck pain Integumentary Denies abscess, Abrasions or rash Neurologic Neurologic: Denies headache(s) or weakness Psychiatric Psychiatric: Denies anxiety, depression or suicidal thoughts Endocrine Endocrinology: Denies polydipsia, polyphagia or polyuria Hematologic/Lymphatic Hematologic/Lymphatic: Denies easy bleeding, easy bruising or lymphadenopathy Allergic/Immunologic Allergic/Immunologic ED: Denies mouth swelling, tongue swelling or urticaria EXAM Physical Exam Const Vital Signs: 01/26/25 07:46 01/26/25 08:09 01/26/25 08:27 Temperature 97.1 F L Temperature Source Temporal Pulse Rate 63 Respiratory Rate 18 Respiratory Effort Normal Non-Labored Respiratory Pattern Normal Blood Pressure 125/62 H Blood Pressure Mean 83 Pulse Ox 100 Oxygen Delivery Method Room Air 01/26/25 08:45 Temperature Temperature Source Pulse Rate 70 Respiratory Rate 15 Respiratory Effort Respiratory Pattern Blood Pressure 129/73 H Blood Pressure Mean 91 Pulse Ox 100 Oxygen Delivery Method Room Air Positive well nourished and well developed General Appearance ED: well developed and NAD HEENT Reports TM's clear and moist mucous membranes normocephalic and atraumatic; Negative for trauma or tenderness Tympanic Membrane ED: Yes TM's clear Eyes PERRL and EOMs intact bilaterally General Eye ED: Negative for pale conjunctiva or scleral icterus Neck no lymphadenopathy, supple and no JVD General: Negative for tenderness Chest Wall inspection of chest normal and palpation of chest normal Chest: Negative for tenderness Resp normal respiratory effort and clear to auscultation bilaterally Effort and Inspection: Negative for respiratory distress or pain with movement Auscultation: Negative for rhonchi, wheezes or diminished lung sounds Cardio regular rate, regular rhythm, S1 normal heart sound, S2 normal heart sound and no murmurs Peripheral Pulses: pulses 2+ throughout GI normal to inspection, nondistended, normoactive bowel sounds, soft to palpation,non-tender, non-distended and no masses Back/Spine no CVA tenderness and no thoracic nor lumbar tenderness Extremity normal to inspection General Extremety ED: Negative for edema General Extremity: Negative for edema Neuro oriented x3, CN's II-XII intact bilaterally, no sensory deficits noted and gait normal Sensorium / Orientation: awake, alert, oriented to person, oriented to place andoriented to time Motor Exam: strength 5/5 throughout and strength abnormal Psych mental status grossly normal Skin no rashes or lesions noted and no wounds MDM MDM MDM Narrative Medical decision making narrative: Patient presents with palpitations and chest pain and shortness of breath. Somehistory of anxiety that is currently not being treated. Does not see a primary care physician. No significant risk factors for coronary artery disease other than possibly family history however this is not clear. EKG obtained arrival shows sinus rhythm with rate of 68 bpm with no acute ST segment changes and no evidence of ectopy. CBC with differential was normal. Chemistry is normal. Troponin is less than 6. D-dimer was normal. Chest x-ray unremarkable. This point discussed with patient the results. Will order as needed Ativan and he did asked that I give him a prescription for an albuterol inhaler as he has beendiagnosed with asthma and does not currently have 1. Patient will be referred to primary care physician for follow-up. Suspect component of anxiety. Low suspicion for significant cardiac dysrhythmia Lab Data Attestation: I reviewed the patient's lab results. Labs: Laboratory Results - last 24 hr 01/26/25 08:20 WBC 7.4 RBC 4.94 Hgb 15.0 Hct 45.3 MCV 91.7 MCH 30.4 MCHC 33.1 RDW Std Deviation 42.3 RDW Coeff of Rad 12.5 Plt Count 206 MPV 9.7 Immature Gran % (Auto) 0.300 Neut % (Auto) 44.5 L Lymph % (Auto) 36.0 Fleming % (Auto) 12.3 H Eos % (Auto) 6.4 H Baso % (Auto) 0.5 Absolute Neuts (auto) 3.3 Absolute Lymphs (auto) 2.66 Nucleated RBC % 0 D-Dimer Quant (PE/DVT) 0.27 Sodium 139 Potassium 3.8 Chloride 104 Carbon Dioxide 26.0 Anion Gap 9 BUN 17 Creatinine 0.74 Estim Creat Clear Calc 130.85 Est GFR (MDRD) Non-Af 122 BUN/Creatinine Ratio 22.9 H Glucose 117 H Calcium 9.0 Troponin T High Sens < 6 Radiography Diagnostic Testing: Clinical Impression(s) from Imaging Studies Chest X-Ray 01/26/25 08:25 IMPRESSION: No acute pulmonary process Reading Location: [facility] 1 view chest x-ray obtained interpreted by myself as no evidence of infiltrate or pneumothorax or acute disease process. Radiology in agreement EKG Initial EKG: Attestation: I personally reviewed and interpreted this EKG as follows: Comments: Sinus rhythm with rate of 68 bpm with no acute ST segment change Discharge Plan Triage Chief Complaint: Palpitations ED Provider: Aisha Alves Dx/Rx/DC Orders Clinical Impression: Anxiety, Palpitation, Chest pain Instructions: ED Anxiety Reaction, ED Chest Pain, Uncertain Cause, ED Heart Palpitations Prescriptions: New lorazepam [Ativan] 1 mg tablet 1 mg PO TID PRN (Reason: anxiety) Qty: 10 0RF Primary Care Provider: Care Physician,No Primary Referrals: Vasyl Lara MD [Med Staff - Draw Operator, Family Practice] - 3-5 Days Care Physician,No Primary [Primary Care Provider, Medical] Print Language: Dutch Disposition Disposition: Home, Self Care What to do if you have Problems For any increased pain, shortness of breath, bleeding, nausea or vomiting, chestpain, or any unexpected problems, contact your Primary Care Provider. Call [facility] ([phone]) or report to the closest Emergency Room. Call 911 if necessary. 01/26/25 1546 <Electronically signed by Aisha Alves DO> Cosigner Signature (if applicable): CC: No Primary Care Physician ~ Signed [facility] Work Phone: Discharge summary Author Horacio Juarez [facility] Note Date/Time February 14, 2025 1 1:18am [facility] Medical Records Department [address] [place] [address] Emergency Department Summary 02/14/25 MR#: [id number] Acct: [id number] Name: KEKE PEMBERTON Rep #:[id number] : 1990 34 From: Horacio Juarez MD PCP: Vasyl Lara MD Status:PRE ER Location: ED HPI History of Present Illness Chief Complaint: General Illness Informant: patient Narrative Narrative: Patient is a 34-year-old male presenting with symptoms of Suboxone withdrawal. - Has been off Suboxone for 1-2 days. He ran out and stopped it abruptly - Reports symptoms of withdrawal including hot and cold sweats, anxiety, and mild abdominal cramping. - Denies dyspnea or emesis. - Has been on and off Suboxone for a couple of years; last prescription was for 8 mg tablets, but he was taking less than a full tablet due to strength. - Abruptly stopped taking Suboxone 2 days ago. 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 - Recently obtained a medical marijuana license a few weeks ago. - Has a 2-year-old and a 5-year-old child. [facility] Medical History Drug abuse in remission Anxiety Home Medications ?Medication ?Instructions ?Recorded ?Last Taken ?Type buprenorphine 8 mg-naloxone 2 mg 1 film buccal DAILY # 20 ea 02/14/25 Unknown Rx sublingual film (Suboxone) duloxetine 30 mg capsule,delayed 30 mg PO DAILY depres russ 10/20/25 Unknown History release hydroxyzine HCl 25 mg tablet 25 - 50 mg PO BID PRN anx iety 02/14/25 02/13/25 History lorazepam 0.5 mg tablet 0.5 mg PO DAILY PRN anxiety 02/14/25 02/12/25 History multivitamin 1 tab PO DAILY supplement 02/14/25 History Allergy/AdvReac Type Severity Reaction Status Date / Time No Known Allergies Allergy Verified 02/14/25 09:38 Family History no significant family his Surgical History no surgical history Social History household members: significant other current occupational status: employed Smoking Status: Current every day smoker tobacco type: e-cigarettes ROS ROS ED Constitutional Constitutional ED: Denies chills or fever(s) Eyes Eyes: Denies change in vision or diplopia ENT ENT ED: Denies rhinorrhea or sore throat Cardiovascular Cardiovascular: Denies chest pain or palpitations Respiratory/Chest Respiratory/Chest: Denies cough or dyspnea Gastrointestinal Gastrointestinal: Reports abdominal pain; Denies diarrhea, nausea or vomiting Genitourinary Genitourinary ED: Denies dysuria or hematuria Musculoskeletal Musculoskeletal: Denies back pain or neck pain Integumentary Denies abscess or rash Neurologic Neurologic: Denies headache(s), paresthesias or weakness Psychiatric Psychiatric: Reports anxiety; Denies suicidal thoughts EXAM Physical Exam Const Vital Signs: 02/14/25 09:38 02/14/25 09:57 Temperature 97.7 F L Temperature Source Oral Pulse Rate 67 Respiratory Rate 16 Respiratory Effort Normal Non-Labored Blood Pressure 120/87 H Blood Pressure Mean 98 Pulse Ox 100 Oxygen Delivery Method Room Air Positive well nourished and well developed General Appearance ED: well developed and NAD HEENT Reports moist mucous membranes normocephalic and atraumatic Eyes PERRL and EOMs intact bilaterally Neck full ROM and supple Resp normal respiratory effort and clear to auscultation bilaterally Cardio regular rate, regular rhythm and no murmurs GI non-tender and non-distended Auscultation: normoactive bowel sounds Palpation: soft Back/Spine no CVA tenderness General Back: other FROM Extremity normal to inspection General Extremety ED: Negative for edema, pulses abnormal or tenderness General Extremity: Negative for edema or pulses abnormal Neuro oriented x3, CN's II-XII intact bilaterally and no sensory deficits noted Sensorium / Orientation: awake and alert Motor Exam: strength 5/5 throughout Skin no rashes or lesions noted and no wounds MDM MDM MDM Narrative Medical decision making narrative: Assessment: The patient is a 34-year-old male with history of opioid dependence in remission presenting for worsening mild withdrawal symptoms after abruptly stopping Suboxone two days ago. He reports hot-cold sweats, anxiety, mild abdominal cramping, without vomiting or respiratory distress. Findings on exam are benign. Given the temporal relationship to discontinuation of buprenorphine-naloxone, opioid withdrawal is the most likely diagnosis. Plan: - Provided prescription for Suboxone for short-term management of withdrawal. - Advised outpatient follow-up with [facility] addiction center / Dr. Aldridge for structured taper and ongoing medication-assisted treatment. - Discharged home in stable condition with return precautions. Reevaluations: - Patient re-assessed prior to discharge; remains comfortable, vitals stable, agrees with plan. Discharge Plan Triage Chief Complaint: General Illness ED Provider: Horacio Juarez Dx/Rx/DC Orders Clinical Impression: Opioid withdrawal Instructions: ED Opioid Withdrawal Prescriptions: New buprenorphine-naloxone [Suboxone] 8-2 mg film 1 film buccal DAILY Qty: 20 0RF Rx Instructions: place 1 film on inside of (each) cheek No Action lorazepam 0.5 mg tablet 0.5 mg PO DAILY PRN (Reason: anxiety) hydroxyzine HCl 25 mg tablet 25 - 50 mg PO BID PRN (Reason: anxiety) duloxetine 30 mg capsule,delayed release(DR/EC) 30 mg PO DAILY Rx Instructions: pt to take 1 tablet daily for 7-10 days starting 02/11/25, then increase to twice daily. multivitamin Tablet 1 tab PO DAILY Primary Care Provider: Vasyl Lara Referrals: [facility] [Non-Staff, None] - As soon as possible Print Language: Dutch Disposition Disposition: Home, Self Care What to do if you have Problems For any increased pain, shortness of breath, bleeding, nausea or vomiting, chestpain, or any unexpected problems, contact your Primary Care Provider. Call [facility] ([phone]) or report to the closest Emergency Room. Call 911 if necessary. 02/14/25 1018 <Electronically signed by Horacio Juarez MD> Cosigner Signature (if applicable): CC: Dr. Callie Aldridge DO; Vasyl Lara MD ~ Signed [facility] Work Phone: Evaluation + Plan note No data available for this section [facility] Evaluation note* Diagnosis Trismus- Primary Abnormal involuntary movements Anxiety state Anxiety state, unspecified documented in this encounter [facility] Work Phone: evaluation note* Diagnosis Swallowed foreign body, initial encounter- Primary documented in this encounter [facility] note* Diagnosis Chest pain, unspecified type- Primary Opiate use Poisoning by opium (alkaloids), unspecified documented in this encounter [facility] note* Diagnosis Inmate in correctional facility- Primary Attention deficit hyperactivity disorder (ADHD), unspecified ADHD type Screening for tuberculosis Screening examination for pulmonary tuberculosis Encounter for Hemoccult screening [facility] [place]* Diagnosis Foreign body ingestion, initial encounter- [...] excuse from work documented in this encounter [facility] noteNo assessment information [facility] Work Phone: Hospital Discharge instructions No data available for this section [facility] Hospital Discharge instructions* Attachments The following attachments cannot be sent through Care Everywhere. * Anxiety Disorder (Dutch) * Cramp: Muscle (Dutch) [facility] Work [facility] Discharge instructions* Attachments The following attachments cannot be sent through Care Everywhere. * Chest Pain Discharge Instructions (Dutch) * Drug Abuse and Drug Addiction Discharge Instructions (Dutch) [facility] Additional Instructions Take the prescription as prescribed follow-up with the physician you are referred to to continue this medication and manage this. Return with worsening symptoms or any concerns [facility] Work Phone: Progress note No data available for this section [facility] Reason for referral (narrative)No reason for referral information availableW[facility] Work Phone: Summary Purpose Family History No Family History Records FoundNo Family History Records FoundNo Family History Records FoundNo Family History Records FoundNo Family History Records FoundNo Family History Records FoundNo Family History Records FoundNo Family History Records FoundNo Family History Records FoundNo Family History Records FoundNo Family History Records FoundNo Family History Records Found Advance Directives Date Activated Date Inactivated Comments 08/28/2023 7:14 PM 09/01/2023 6:33 PM Question Answer Comments Full Code Order Discussed With: Patient Date Activated Date Inactivated Comments 04/25/2023 8:29 AM 04/29/2023 5:00 PM Question Answer Comments Full Code Order Discussed With: Patient Date Activated Date Inactivated Comments 12/26/2022 3:13 PM 12/26/2022 7:02 PM Question Answer Comments Full Code Order Discussed With: Patient Advance Directive Response Recorded Date/ Time Do you have a Healthcare Power of Chuck Wagon Driver? No January 08, 2025 2:01pm Advance Directive Response Recorded Date/ Time Do you have a Healthcare Power of [employer] Wagon Driver? No January 08, 2025 2:01pm Do you have a Healthcare Power of Chuck Wagon Driver? No January 26, 2025 8:26am Advance Directive Response Recorded Date/ Time Do you have a Healthcare Power of Chuck Wagon Driver? No January 08, 2025 2:01pm Do you have a Healthcare Power of Chuck Wagon Driver? No January 26, 2025 8:26am Do you have a Healthcare Power of Chuck Wagon Driver? No February 02, 2025 4:45pm Advance Directive Response Recorded Date/ Time Do you have a Healthcare Power of Chuck Wagon Driver? No January 08, 2025 1:01pm Do you have a Healthcare Power of Chuck Wagon Driver? No February 14, 2025 8:57am Do you have a Healthcare Power of Chuck Wagon Driver? No January 26, 2025 7:26am Do you have a Healthcare Power of Chuck Wagon Driver? No February 02, 2025 3:45pm Chief Complaint and Reason for Visit Chief Complaint Admit Date med refill January 08, 2025 12:58pm Chief Complaint Admit Date med refill January 08, 2025 12:58pm PALPITATIONS January 21, 2025 11:45pm Chief Complaint Admit Date med refill January 08, 2025 12:58pm PALPITATIONS January 21, 2025 11:45pm palpitations January 26, 2025 7: 45am Chief Complaint Admit Date med refill January 08, 2025 12:58pm PALPITATIONS January 21, 2025 11:45pm palpitations January 26, 2025 7: 45am ANXIETY February 02, 2025 4: 21pm Chief Complaint Admit Date med refill January 08, 2025 12:58pm PALPITATIONS January 21, 2025 11:45pm palpitations January 26, 2025 7: 45am ANXIETY February 02, 2025 4: 21pm chest pain February 13, 2025 5 :35pm cold sweats, anxiety February 14, 2025 9:37am Additional Source Comments (unrecognized sect ion and content) No Status Records FoundNo Status Records FoundNo Status Records FoundNo Status Records FoundNo Status Records FoundNo Status Records FoundNo Status Records FoundNo Status Records FoundNo Status Records FoundNo Status Records FoundNo Status Records FoundNo Status Records Found INFORMATION SOURCE (unrecogn ized section and content) DATE CREATED AUTHOR 05/31/2020 [facility] DATE CREATED AUTHOR AUTHOR'S ORGANIZ ATION 07/24/2020 [facility] DATE CREATED AUTHOR AUTHOR'S ORGANIZ ATION 08/17/2021 [facility] DATE CREATED AUTHOR AUTHOR'S ORGANIZ ATION 09/02/2021 [facility] DATE CREATED AUTHOR AUTHOR'S ORGANIZ ATION 10/08/2021 [facility] ([place] DATE CREATED AUTHOR AUTHOR'S ORGANIZ ATION 04/26/[address] [facility] DATE CREATED AUTHOR AUTHOR'S ORGANIZ ATION 05/01/2023 [facility] DATE CREATED AUTHOR AUTHOR'S ORGANIZ ATION 08/25/2023 [facility] DATE CREATED AUTHOR AUTHOR'S ORGANIZ ATION 09/01/2023 [facility] DATE CREATED AUTHOR AUTHOR'S ORGANIZ ATION 08/31/2024 [facility] DATE CREATED AUTHOR AUTHOR'S ORGANIZ ATION 02/05/2025 [facility] DATE CREATED AUTHOR AUTHOR'S ORGANIZ ATION 02/27/2025 [facility] Source Comments (unrecognize d section and content) In the event this informatio n is protected by the Federal Confidentiality of Alcohol and Drug Abuse Patient Records regulations: The Federal rules restrict any use of the information to criminally investigate or prosecute any alcohol or drug abuse patient.[facility] Center[facility] the event this information is protected by the Federal Confidentiality of Alcohol and Drug Abuse Patient Records regulations: The Federal rules restrict any use of the information to criminally investigate or prosecute any alcohol or drug abuse patient.[facility] Center[facility] the event this information is protected by the Federal Confidentiality of Alcohol and Drug Abuse Patient Records regulations: The Federal rules restrict any use of the information to criminally investigate or prosecute any alcohol or drug abuse patient.[facility] Center[facility] the event this information is protected by the Federal Confidentiality of Alcohol and Drug Abuse Patient Records regulations: The Federal rules restrict any use of the information to criminally investigate or prosecute any alcohol or drug abuse patient.[facility] CenterIn the event this information is protected by the Federal Confidentiality of Alcohol and Drug Abuse Patient Records regulations: The Federal rules restrict any use of the information to criminally investigate or prosecute any alcohol or drug abuse patient.[facility] CenterIn the event this information is protected by the Federal Confidentiality of Alcohol and Drug Abuse Patient Records regulations: The Federal rules restrict any use of the information to criminally investigate or prosecute any alcohol or drug abuse patient.[facility] CenterIn the event this information is protected by the Federal Confidentiality of Alcohol and Drug Abuse Patient Records regulations: The Federal rules restrict any use of the information to criminally investigate or prosecute any alcohol or drug abuse patient.[facility] CenterIn the event this information is protected by the Federal Confidentiality of Alcohol and Drug Abuse Patient Records regulations: The Federal rules restrict any use of the information to criminally investigate or prosecute any alcohol or drug abuse patient.[facility] Care Teams (unrecognized sec tion and content) Potato Sorter Relationship Specialty Start Date End Date Sea Acevedo FRANCOISE PCP - General Family Practice 10/26/12 Team Status: Active Member Role/Relationship Status Dates No Primary Care Physician Primary Care Provider Active Team Status: Inactive Member Role/Relationship Status Dates No Primary Care Physician Primary Care Provider Active Start: January 08, 2025 End: January 08, 2025 Dr. Castillo Jones DO Emergency Provider Active Start: January 08, 2025 End: January 08, 2025 Team Status: Active Member Role/Relationship Status Dates No Primary Care Physician Primary care physician Activ e Team Status: Inactive Member Role/Relationship Status Dates No Primary Care Physician Primary care physician Activ e Start: January 08, 2025 End: January 08, 2025 Dr. Castillo Jones DO Attending physician Active Start: January 08, 2025 End: January 08, 2025 Dr. Castillo Jones DO Emergency Departme nt Physician Active Start: January 08, 2025 End: January 08, 2025 Team Status: Inactive Member Role/Relationship Status Dates No Primary Care Physician Primary care physician Activ e Start: January 21, 2025 End: January 22, 2025 Ed Physician Provider Emergency Departme nt Physician Active Start: January 21, 2025 End: January 22, 2025 Team Status: Inactive Member Role/Relationship Status Dates No Primary Care Physician Primary care physician Activ e Start: January 21, 2025 End: January 22, 2025 Ed Physician Provider Attending physician Active Start: January 21, 2025 End: January 22, 2025 Ed Physician Provider Emergency Departme nt Physician Active Start: January 21, 2025 End: January 22, 2025 Team Status: Inactive Member Role/Relationship Status Dates No Primary Care Physician Primary care physician Activ e Start: January 26, 2025 End: January 26, 2025 Dr. Aisha Alves DO Emergency Departmen t Physician Active Start: January 26, 2025 End: January 26, 2025 Team Status: Active Member Role/Relationship Status Dates Dr. Vasyl RAYO MD Primary care physician Active Team Status: Inactive Member Role/Relationship Status Dates Dr. Vasyl RAYO MD Primary care physician Active Start: February 02, 2025 End: February 02, 2025 Juan Garrett MD Emergency Department Physician Activ e Start: February 02, 2025 End: February 02, 2025 Team Status: Inactive Member Role/Relationship Status Dates No Primary Care Physician Primary care physician Activ e Start: January 26, 2025 End: January 26, 2025 Dr. Aisha Alvse DO Attending physician Active Start: January 26, 2025 End: January 26, 2025 Dr. Aisha Alves DO Emergency Departmen t Physician Active Start: January 26, 2025 End: January 26, 2025 Team Status: Inactive Member Role/Relationship Status Dates Dr. Vasyl RAYO MD Primary care physician Active Start: February 02, 2025 End: February 02, 2025 Juan Garrett MD Attending physician Active Sta rt: February 02, 2025 End: February 02, 2025 Juan Garrett MD Emergency Department Physician Activ e Start: February 02, 2025 End: February 02, 2025 Team Status: Inactive Member Role/Relationship Status Dates Dr. Vasyl RAYO MD Primary care physician Active Start: February 13, 2025 End: February 13, 2025 Ed Physician Provider Attending physician Active Start: February 13, 2025 End: February 13, 2025 Ed Physician Provider Emergency Departme nt Physician Active Start: February 13, 2025 End: February 13, 2025 Team Status: Inactive Member Role/Relationship Status Dates Dr. Vasyl RAYO MD Primary care physician Active Start: February 14, 2025 End: February 14, 2025 Dr. Horacio Juarez MD Attending physician Active Start: February 14, 2025 End: February 14, 2025 Dr. Horacio Juarez MD Emergency Depart ment Physician Active Start: February 14, 2025 End: February 14, 2025 Reason for Visit (unrecogniz ed section and [...] On 08/22/23 at 2105, For 1 dose 2105 (Given - Provid er: Lorena Yost RN) traMADol (Ultram) tablet 100 mg (COMPLETED) 100 mg, Oral, Once, On 08/22/23 at 2105, For 1 dose 2105 (Given - Provid er: Lorena Yost RN) Goals (unrecognized section and content) Goals may be documented in a n alternate section FOR RECORDS PERTAINING TO PATIENTS WHO ARE [...] BE BASED ON THE PRIMARY CLINICAL RECORDS. [employer] provides no warranty or guarantee of the accuracy or completeness of information in this document.
--- NOTE | 2025-03-17 21:42 | RAD_ITS ---
PROCEDURE: RIBS LEFT UNI MIN 3V W/PA CHEST 03/17/2025 REASON FOR EXAM: PAIN. Patient has been coughing and was bending over coughing and felt like he popped rib out on the lower left ribcage. TECHNIQUE: Procedure Code: RADRIB Modality: DX Procedure: RIBS UNI MIN 3V W/PA CHEST COMPARISON: XR CHEST 2V, 03/10/2025 FINDINGS: LUNGS AND PLEURA: The lungs are clear. No pleural effusion or pneumothorax. HEART AND MEDIASTINUM: The heart size and mediastinal contours are normal. BONES: No acute osseous abnormality. No evidence of acute rib fracture. RAD/Ribs Uni Min 3V w/PA Chest IMPRESSION: No acute rib fracture seen. Reading Location: [id number]
[2025-03-17 22:28] VITALS: BP 119/81; PULSE 69; RESP 14; TEMP 36.9; O2SAT 99
[2025-03-17] MEDS: Albuterol Sulfate 8 gm Inhaler (60 puffs) 2 PUFF INHALATION (22:40)
[2025-03-17 22:42] VITALS: RESP 12
== END 2025-03-17 22:43 | disposition home or self-care (01) ==
PROVIDERS: Emergency Provider Emergency Medicine; PCP Family Medicine; Visit Provider Emergency Medicine
DX: S29.011A Strain of muscle and tendon of front wall of thorax, initial encounter (principal); F17.290 Nicotine dependence, other tobacco product, uncomplicated; X58.XXXA Exposure to other specified factors, initial encounter; R05.9 Cough, unspecified; R06.00 Dyspnea, unspecified
CPT/HCPCS: 71101; 94640; 96372; 99282